=== PATIENT | female | born 1960 | race Caucasian/White ===

== ENCOUNTER 2017-04-22 05:56 | Emergency (ER) | payer OTHER ==
[~2017-04-22] VITALS: Ht 162.6 cm; Wt 122.5 kg
[~2017-04-22 05:56] MED LIST: BACL20TA PO; FLUO40CA PO; FURO40TA4 PO; HCT25T; HYDR-34 PO; HYDR-3720 PO; HYDR-3820 PO; KCL20TCR; KCL20TCR PO; NF-ESOM40C; OMEP20CA6; ONDN4T PO; OXYC-12 PO; OXYC5SOL19 PO; PANT40TA2 PO; PROP1TAB77; ROPI1TAB40 PO; ROPI2TAB4 PO; SPIR50TA27 PO; TPR100T
--- OUTSIDE RECORDS SUMMARY | 2017-04-22 06:04 | XMS REPORT | Continuity of Care Document ---
Author Author [facility] Address Unknown Phone Unavailable Allergies Active Description Code Type Severity Reaction Onset Reported/Identified Relationship to Patient Clinical Status Yes Penicillins [id number] Drug Allergy Unknown N/A 12/06/2008 Yes Penicillins Drug Allergy N/A N/A 10/09/2012 Medications There is no data. Problems Date Dx Coded Attending Type Code Diagnosis Diagnosed By 02/21/2009 Ot V43.64 02/21/2009 Ot V43.65 02/21/2009 Ot V54.81 02/21/2009 Ot V57.1 09/09/2009 Ot 285.9 09/09/2009 Ot 311 09/09/2009 Ot 333.94 09/09/2009 Ot 401.9 09/09/2009 Ot 715.96 09/09/2009 Ot 782.3 09/20/2009 Ot 278.00 09/20/2009 Ot 285.9 09/20/2009 Ot 401.9 09/20/2009 Ot 721.2 09/20/2009 Ot 782.3 09/20/2009 Ot V43.65 09/20/2009 Ot V54.81 09/20/2009 Ot V57.1 09/20/2009 Ot V57.21 09/20/2009 Ot V85.4 12/27/2009 Ot V43.65 12/27/2009 Ot V54.81 12/27/2009 Ot V57.1 12/27/2009 Ot 724.4 12/27/2009 Ot V43.65 12/27/2009 Ot V57.1 03/22/2010 Ot 311 DEPRESSIVE DISORDER NEC 03/22/2010 Ot 333.94 RESTLESS LEGS SYNDROME 03/22/2010 Ot 401.9 HYPERTENSION NOS 03/22/2010 Ot 518.0 PULMONARY COLLAPSE 03/22/2010 Ot 715.90 OSTEOARTHROS NOS-UNSPEC 03/22/2010 Ot 727.09 SYNOVITIS NEC 03/22/2010 Ot 786.59 CHEST PAIN NEC 03/22/2010 Ot 996.77 OTH COMPLICATIONS DUE TO INTERNAL JOINT 03/22/2010 Ot 997.1 SURG COMPL- HEART 03/22/2010 Ot E849.[address] NOS 03/22/2010 Ot E878.1 ABN REACT- ARTIF IMPLANT 03/22/2010 Ot V15.82 HISTORY OF TOBACCO USE 03/22/2010 Ot V43.65 KNEE JOINT REPLACEMENT STATUS 03/22/2010 Ot V85.42 BODY MASS INDEX 45.0-49.9, ADULT 12/18/2010 Ot 211.3 BENIGN NEOPLASM LG BOWEL 10/09/2012 JORDY MAGAÑA MD 278.00 OBESITY 10/09/2012 JORDY MAGAÑA MD 724.2 LUMBAGO/ LOW BACK PAIN 10/09/2012 JORDY MAGAÑA MD 782.3 EDEMA 10/09/2012 JORDY MAGAÑA MD V76.12 Mammogram Screening 10/09/2012 JORDY MAGAÑA MD 278.00 OBESITY 10/09/2012 JORDY MAGAÑA MD 724.2 LUMBAGO/ LOW BACK PAIN 10/09/2012 JORDY MAGAÑA MD 782.3 EDEMA 10/09/2012 JORDY MAGAÑA MD V76.12 Mammogram Screening 10/09/2012 JORDY MAGAÑA MD 278.00 OBESITY 10/09/2012 JORDY MAGAÑA MD 724.2 LUMBAGO/ LOW BACK PAIN 10/09/2012 JORDY MAGAÑA MD 782.3 EDEMA 10/09/2012 JORDY MAGAÑA MD V76.12 Mammogram Screening 10/09/2012 DEL REAL DO, JAM K 278.00 OBESITY 10/09/2012 DEL REAL DO JAM K 724.2 LUMBAGO/ LOW BACK PAIN 10/09/2012 DEL REAL DO, JAM K 782.3 EDEMA 10/09/2012 DEL REAL DO, JAM K V76.12 Mammogram Screening 10/09/2012 DEL REAL DO, JAM K 278.00 OBESITY 10/09/2012 DEL REAL DO, JAM K 724.2 LUMBAGO/ LOW BACK PAIN 10/09/2012 DEL REAL DO JAM K 782.3 EDEMA 10/09/2012 DEL REAL DO JAM K V76.12 Mammogram Screening 10/09/2012 SONU INTERNATIONAL CONTROLLER, SHARDA R 278.00 OBESITY 10/09/2012 SONU INTERNATIONAL CONTROLLER, SHARDA R 724.2 LUMBAGO/ LOW BACK PAIN 10/09/2012 SONU INTERNATIONAL CONTROLLER, SHARDA R 782.3 EDEMA 10/09/2012 SONU INTERNATIONAL CONTROLLER, SHARDA R V76.12 Mammogram Screening 10/09/2012 SONU INTERNATIONAL CONTROLLER, SHARDA R 278.00 OBESITY 10/09/2012 SONU INTERNATIONAL CONTROLLER, SHARDA R 724.2 LUMBAGO/ LOW BACK PAIN 10/09/2012 SONU INTERNATIONAL CONTROLLER, SHARDA R 782.3 EDEMA 10/09/2012 SONU INTERNATIONAL CONTROLLER, SHARDA R V76.12 Mammogram Screening 10/09/2012 SONU INTERNATIONAL CONTROLLER, SHARDA R 278.00 OBESITY 10/09/2012 SONU INTERNATIONAL CONTROLLER, SHARDA R 724.2 LUMBAGO/ LOW BACK PAIN 10/09/2012 SONU INTERNATIONAL CONTROLLER, SHARDA R 782.3 EDEMA 10/09/2012 SONU INTERNATIONAL CONTROLLER, SHARDA R V76.12 Mammogram Screening 10/09/2012 SONU INTERNATIONAL CONTROLLER, SHARDA R 278.00 OBESITY 10/09/2012 SONU INTERNATIONAL CONTROLLER, SHARDA R 724.2 LUMBAGO/ LOW BACK PAIN 10/09/2012 SONU INTERNATIONAL CONTROLLER, SHARDA R 782.3 EDEMA 10/09/2012 SONU INTERNATIONAL CONTROLLER, SHARDA R V76.12 Mammogram Screening 12/18/2012 JORDY MAGAÑA MD 271.3 GLUCOSE INTOLERANCE 12/18/2012 JORDY MAGAÑA MD 719.41 PAIN IN JOINT INVOLVING SHOULDER REGION 12/18/2012 JORDY MAGAÑA MD 271.3 GLUCOSE INTOLERANCE 12/18/2012 JORDY MAGAÑA MD 719.41 joint pain, localized in the shoulder 12/18/2012 ELMER DEL REAL DOA K 271.3 GLUCOSE INTOLERANCE 12/18/2012 JAM DEL REAL DO K 719.41 joint pain, localized in the shoulder 12/18/2012 ELMER DEL REAL DOA K 271.3 GLUCOSE INTOLERANCE 12/18/2012 JAM DEL REAL DO K 719.41 joint pain, localized in the shoulder 12/18/2012 SONU INTERNATIONAL CONTROLLER, SHARDA R 271.3 GLUCOSE INTOLERANCE 12/18/2012 SONU BUTLER, SHARDA R 719.41 joint pain, localized in the shoulder 12/18/2012 SONU INTERNATIONAL CONTROLLER, SHARDA R 271.3 GLUCOSE INTOLERANCE 12/18/2012 SONU INTERNATIONAL CONTROLLER, SHARDA R 719.41 joint pain, localized in the shoulder 12/18/2012 SONU INTERNATIONAL CONTROLLER, SHARDA R 271.3 GLUCOSE INTOLERANCE 12/18/2012 SONU INTERNATIONAL CONTROLLER, SHARDA R 719.41 joint pain, localized in the shoulder 12/18/2012 SONU INTERNATIONAL CONTROLLER, SHARDA R 271.3 GLUCOSE INTOLERANCE 12/18/2012 SONU INTERNATIONAL CONTROLLER, SHARDA R 719.41 joint pain, localized in the shoulder 02/26/2013 JORDY MAGAÑA MD Ot 719.41 JOINT PAIN-SHLDER 02/26/2013 JORDY MAGAÑA MD Ot V57.1 PHYSICAL THERAPY NEC 04/15/2013 JORDY MAGAÑA MD 300.00 anxiety 04/15/2013 DEL REAL DO, JAM K 300.00 anxiety 04/15/2013 DEL REAL DO, JAM K 300.00 anxiety 04/15/2013 SONU BUTLER, SHARDA R 300.00 anxiety 04/15/2013 SONU BUTLER, SHARDA R 300.00 anxiety 04/15/2013 SONU BUTLER, SHARDA R 300.00 anxiety 04/15/2013 SONU BUTLER, SHARDA R 300.00 anxiety 02/20/2014 SONU BUTLER, SHARDA R 786.2 COUGH 02/20/2014 SONU BUTLER, SHARDA R 786.2 COUGH 03/03/2014 JEFRY GREENWOOD, IBIS Arias Ot 733.92 CHONDROMALACIA 03/03/2014 JEFRY GREENWOOD, IBIS Arias Ot 840.7 (SLAP) SUPERIOR GLENOID LABRUM LESIONS 03/12/2014 SEJAL THOMSON [employer] Ot V57.1 03/12/2014 SEJAL THOMSON [employer] MA[employer]NA[employer] INTER[employer] Ot V58.49 03/12/2014 SEJAL THOMSON [employer] MAINTENAN[employer] INTERNSHIP Ot V57.1 03/12/2014 SEJAL THOMSON [employer]SC[employer] MAINTENANCE INTERNSHIP Ot V58.49 03/12/2014 SEJAL THOMSON [employer]SC[employer] MAINTENANCE INTERNSHIP Ot V57.1 03/12/2014 SJEAL THOMSON [employer]SC[employer] MAINTENANCE INTERNSHIP Ot V58.49 03/25/2014 IBIS CAPPS MD Ot 840.4 03/25/2014 IBIS CAPPS MD Ot E000.8 03/25/2014 JEFRY GREENWOOD, IBIS Arias Ot E928.9 03/25/2014 JEFRY GREENWOOD, IBIS P Ot V72.63 03/25/2014 JEFRY GREENWOOD, IBIS P Ot V74.8 04/09/2014 SEJAL THOMSON [employer] MAINTENA[employer] INTERNS[employer]IP Ot V57.1 04/09/2014 SEJAL THOMSON [employer] MA[employer]TENA[employer] Ot V58.49 04/12/2014 SEJAL THOMSON [employer] Ot V57.1 PHYSICAL THERAPY NEC 04/12/2014 SEJAL THOMSON [employer] Ot V58.49 OTHER SPECIFIED AFTERCARE FOLLOWING SURG 07/28/2014 Ot 715.36 07/28/2014 Ot 791.9 07/28/2014 Ot V72.63 07/28/2014 Ot V72.81 07/28/2014 Ot V74.8 07/28/2014 Ot 719.06 07/28/2014 Ot 996.59 07/28/2014 Ot 996.47 07/28/2014 Ot V43.65 07/28/2014 Ot V72.63 07/28/2014 Ot V74.8 07/28/2014 Ot 719.45 07/28/2014 Ot V43.64 07/28/2014 Ot 401.9 07/28/2014 Ot 703.9 07/28/2014 Ot 719.40 07/28/2014 Ot 733.90 07/28/2014 Ot 780.79 07/28/2014 Ot 959.6 07/28/2014 Ot E000.8 07/28/2014 Ot E849.0 07/28/2014 Ot E885.9 07/28/2014 Ot V43.64 07/28/2014 ARCHANA GREENWOOD, JORDY Adamson Ot 401.9 07/28/2014 ARCHANA GREENWOOD, JORDY Adamson Ot 782.3 07/28/2014 JEFRY GREENWOOD, IBIS Arias Ot 840.4 07/28/2014 JEFRY GREENWOOD, IBIS Arias Ot E000.8 07/28/2014 JEFRY GREENWOOD, IBIS Arias Ot E928.9 07/28/2014 JEFRY GREENWOOD, IBIS Arias Ot V72.63 07/28/2014 JEFRY GREENWOOD, IBIS Arias Ot V74.8 07/28/2014 Ot 715.36 07/28/2014 Ot 791.9 07/28/2014 Ot V72.63 07/28/2014 Ot V72.81 07/28/2014 Ot V74.8 07/28/2014 Ot 719.06 07/28/2014 Ot 996.59 07/28/2014 Ot 996.47 07/28/2014 Ot V43.65 07/28/2014 Ot V72.63 07/28/2014 Ot V74.8 07/28/2014 Ot 719.45 07/28/2014 Ot V43.64 07/28/2014 Ot 401.9 07/28/2014 Ot 703.9 07/28/2014 Ot 719.40 07/28/2014 Ot 733.90 07/28/2014 Ot 780.79 07/28/2014 Ot 959.6 07/28/2014 Ot E000.8 07/28/2014 Ot E849.0 07/28/2014 Ot E885.9 07/28/2014 Ot V43.64 07/28/2014 ARCHANA GREENWOOD, JORDY Adamson Ot 401.9 07/28/2014 ARCHANA GREENWOOD, JORDY Adamson Ot 782.3 07/28/2014 JEFRY GREENWOOD, IBIS Arias Ot 840.4 07/28/2014 JEFRY GREENWOOD, IBIS Arias Ot E000.8 07/28/2014 JEFRY GREENWOOD, IBIS Arias Ot E928.9 07/28/2014 JEFRY GREENWOOD, IBIS Arias Ot V72.63 07/28/2014 JEFRY GREENWOOD, IBIS Arias Ot V74.8 09/09/2014 Ot 715.36 09/09/2014 Ot 791.9 09/09/2014 Ot V72.63 09/09/2014 Ot V72.81 09/09/2014 Ot V74.8 09/09/2014 Ot 719.06 09/09/2014 Ot 996.59 09/09/2014 Ot 996.47 09/09/2014 Ot V43.65 09/09/2014 Ot V72.63 09/09/2014 Ot V74.8 09/09/2014 Ot 719.45 09/09/2014 Ot V43.64 09/09/2014 Ot 401.9 09/09/2014 Ot 703.9 09/09/2014 Ot 719.40 09/09/2014 Ot 733.90 09/09/2014 Ot 780.79 09/09/2014 Ot 959.6 09/09/2014 Ot E000.8 09/09/2014 Ot E849.0 09/09/2014 Ot E885.9 09/09/2014 Ot V43.64 09/09/2014 ARCHANA GREENWOOD, JORDY Adamson Ot 401.9 09/09/2014 ARCHANA GREENWOOD, JORDY Adamson Ot 782.3 09/09/2014 JEFRY GREENWOOD, IBIS P Ot 840.4 09/09/2014 JEFRY GREENWOOD, IBIS P Ot E000.8 09/09/2014 JEFRY GREENWOOD, IBIS P Ot E928.9 09/09/2014 JEFRY GREENWOOD, IBIS P Ot V72.63 09/09/2014 JEFRY GREENWOOD, IBIS P Ot V74.8 09/09/2014 IRENE GREENWOOD, BALBIR Ot 272.0 09/09/2014 IRENE GREENWOOD, BALBIR Ot 530.81 09/09/2014 ARCHANA GREENWOOD, JORDY Adamson Ot 401.9 09/09/2014 ARCHANA GREENWOOD, JORDY Adamson Ot 782.3 09/09/2014 Ot 715.36 09/09/2014 Ot 791.9 09/09/2014 Ot V72.63 09/09/2014 Ot V72.81 09/09/2014 Ot V74.8 09/09/2014 Ot 719.06 09/09/2014 Ot 996.59 09/09/2014 Ot 996.47 09/09/2014 Ot V43.65 09/09/2014 Ot V72.63 09/09/2014 Ot V74.8 09/09/2014 Ot 719.45 09/09/2014 Ot V43.64 09/09/2014 Ot 401.9 09/09/2014 Ot 703.9 09/09/2014 Ot 719.40 09/09/2014 Ot 733.90 09/09/2014 Ot 780.79 09/09/2014 Ot 959.6 09/09/2014 Ot E000.8 09/09/2014 Ot E849.0 09/09/2014 Ot E885.9 09/09/2014 Ot V43.64 09/09/2014 ARCHANA GREENWOOD, JORDY Adamson Ot 401.9 09/09/2014 ARCHANA GREENWOOD, JORDY Adamson Ot 782.3 09/09/2014 JEFRY GREENWOOD, IBIS P Ot 840.4 09/09/2014 JEFRY GREENWOOD, IBIS P Ot E000.8 09/09/2014 JEFRY GREENWOOD, IBIS P Ot E928.9 09/09/2014 JEFRY GREENWOOD, IBIS P Ot V72.63 09/09/2014 JEFRY GREENWOOD, IBIS P Ot V74.8 09/09/2014 IRENE GREENWOOD, BALBIR Ot 272.0 09/09/2014 IRENE GREENWOOD, BALBIR Ot 530.81 09/15/2014 ARCHANA GREENWOOD, JORDY Adamson Ot 401.9 09/15/2014 ARCHANA GREENWOOD, JORDY M Ot 782.3 09/20/2014 IRENE GREENWOOD, BALBIR Ot 272.0 09/20/2014 IRENE GREENWOOD, BALBIR Ot 530.81 10/07/2014 IRENE GREENWOOD, BALBIR Ot 272.0 10/07/2014 IRENE GREENWOOD, BALBIR Ot 530.81 10/18/2014 IRENE GREENWOOD, BALBIR Ot 272.0 10/18/2014 IRENE GREENWOOD, BALBIR Ot 530.81 12/18/2014 BALBIR BONILLA MD Ot E66.01 MORBID (SEVERE) OBESITY DUE TO EXCESS CA 12/18/2014 BALBIR BONILLA MD Ot G25.81 RESTLESS LEGS SYNDROME 12/18/2014 BALBIR BONILLA MD Ot G44.40 DRUG-INDUCED HEADACHE, NEC, NOT INTRACTA 12/18/2014 BALBIR BONILLA MD Ot I10 ESSENTIAL (PRIMARY) HYPERTENSION 12/18/2014 BALBIR BONILLA MD Ot K21.9 GASTRO-ESOPHAGEAL REFLUX DISEASE WITHOUT 12/18/2014 BALBIR BONILLA MD Ot M47.9 SPONDYLOSIS, UNSPECIFIED 12/18/2014 BALBIR BONILLA MD Ot R60.9 EDEMA, UNSPECIFIED 12/18/2014 BALBIR BONILLA MD Ot T40.4X5A ADVERSE EFFECT OF OTHER SYNTHETIC NARCOT 12/18/2014 BALBIR BONILLA MD Ot Z68.43 BODY MASS INDEX (BMI) 50-59.9 , ADULT 12/18/2014 BALBIR BONILLA MD Ot Z87.891 PERSONAL HISTORY OF NICOTINE DEPENDENCE 12/24/2014 BALBIR BONILLA MD Ot E66.01 12/24/2014 IRENE GERENWOOD, BALBIR Ot Z01.812 12/24/2014 IRENE GREENWOOD, BALBIR Ot Z11.2 12/24/2014 IRENE GREENWOOD, BALBIR Ot Z68.43 05/25/2015 Ot 719.06 05/25/2015 Ot 996.59 05/25/2015 Ot 996.47 05/25/2015 Ot V43.65 05/25/2015 Ot V72.63 05/25/2015 Ot V74.8 05/25/2015 Ot 719.45 05/25/2015 Ot V43.64 05/25/2015 Ot 401.9 05/25/2015 Ot 703.9 05/25/2015 Ot 719.40 05/25/2015 Ot 733.90 05/25/2015 Ot 780.79 05/25/2015 Ot 959.6 05/25/2015 Ot E000.8 05/25/2015 Ot E849.0 05/25/2015 Ot E885.9 05/25/2015 Ot V43.64 05/25/2015 ARCHANA GREENWOOD, JORDY Adamson Ot 401.9 05/25/2015 ARCHANA GREENWOOD, JORDY Adamson Ot 782.3 05/25/2015 JEFRY GREENWOOD, IBIS Arias Ot 840.4 05/25/2015 JEFRY GREENWOOD, IBIS Arias Ot E000.8 05/25/2015 JEFRY GREENWOOD, IBIS Arias Ot E928.9 05/25/2015 JEFRY GREENWOOD, IBIS Arias Ot V72.63 05/25/2015 JEFRY GREENWOOD, IBIS P Ot V74.8 05/25/2015 IRENE GREENWOOD, BALBIR Ot 272.0 05/25/2015 IRENE GREENWOOD, BALBIR Ot 530.81 05/25/2015 IRENE GREENWOOD, BALBIR Ot E66.01 05/25/2015 IRENE GREENWOOD, BALBIR Ot Z01.812 05/25/2015 IRENE GREENWOOD, BALBIR Ot Z11.2 05/25/2015 IRENE GREENWOOD, BALBIR Ot Z68.43 06/28/2015 Ot 719.06 JOINT EFFUSION-L/LEG 06/28/2015 Ot 996.59 MECH. COMPLIC, OTH. IMPLANT INTERNAL D 06/28/2015 Ot 996.47 OTHER [facility] COMPLICATION OF PROSTHETIC SUSAN 06/28/2015 Ot V43.65 KNEE JOINT REPLACEMENT STATUS 06/28/2015 Ot V72.63 PRE- PROCEDURAL LABORATORY EXAMINATION 06/28/2015 Ot V74.8 SCREEN- BACTERIAL DIS NEC 06/28/2015 Ot 719.45 JOINT PAIN- PELVIS 06/28/2015 Ot V43.64 HIP JOINT REPLACEMENT STATUS 06/28/2015 Ot 401.9 HYPERTENSION NOS 06/28/2015 Ot 703.9 DISEASE OF NAIL NOS 06/28/2015 Ot 719.40 JOINT PAIN- UNSPEC 06/28/2015 Ot 733.90 BONE CARTILAGE DIS NOS 06/28/2015 Ot 780.79 OTH MALAISE FATIGUE 06/28/2015 Ot 959.6 HIP THIGH INJURY NOS 06/28/2015 Ot E000.8 OTHER EXTERNAL CAUSE STATUS 06/28/2015 Ot E849.0 ACCIDENT IN HOME 06/28/2015 Ot E885.9 FALL FROM SLIPPING, TRIPPING, OR STUMBLI 06/28/2015 Ot V43.64 HIP JOINT REPLACEMENT STATUS 06/28/2015 JORDY MAGAÑA MD Ot 401.9 HYPERTENSION NOS 06/28/2015 JORDY MAGAÑA MD Ot 782.3 EDEMA 06/28/2015 IBIS CAPPS MD Ot 840.4 SPRAIN ROTATOR CUFF 06/28/2015 IBIS CAPPS MD Ot E000.8 OTHER EXTERNAL CAUSE STATUS 06/28/2015 IBIS CAPPS MD Ot E928.9 ACCIDENT NOS 06/28/2015 IBIS CAPPS MD Ot V72.63 PRE-PROCEDURAL LABORATORY EXAMINATION 06/28/2015 IBIS CAPPS MD Ot V74.8 SCREEN-BACTERIAL DIS NEC 06/28/2015 BALBIR BONILLA MD Ot 272.0 PURE HYPERCHOLESTEROLEM 06/28/2015 BALBIR BONILLA MD Ot 530.81 ESOPHAGEAL REFLUX 06/28/2015 BALBIR BONILLA MD Ot E66.01 MORBID (SEVERE) OBESITY DUE TO EXCESS CA 06/28/2015 BALBIR BONILLA MD Ot Z01.812 ENCOUNTER FOR PREPROCEDURAL LABORATORY E 06/28/2015 BALBIR BONILLA MD, Ot Z11.2 ENCOUNTER FOR SCREENING FOR OTHER BACTER 06/28/2015 BALBIR BONILLA MD Ot Z68.43 BODY MASS INDEX (BMI) 50-59.9 , ADULT 06/28/2015 JESSICA DUKES MD Ot Z12.31 ENCNTR SCREEN MAMMOGRAM FOR MALIGNANT NE 06/28/2015 JESSICA DUKES MD Ot L65.9 NONSCARRING HAIR LOSS, UNSPECIFIED 06/28/2015 JESSICA DUKES MD Ot R53.81 OTHER MALAISE 06/28/2015 JESSICA DUKES MD Ot R53.83 OTHER FATIGUE 06/30/2015 JESSICA DUKES MD Ot N63 UNSPECIFIED LUMP IN BREAST 07/02/2015 Ot 719.06 JOINT EFFUSION-L/LEG 07/02/2015 Ot 996.59 [facility]. COMPLIC, OT. IMPLANT INTERNAL D 07/02/2015 Ot 996.47 OTHER [facility] COMPLICATION OF PROSTHETIC SUSAN 07/02/2015 Ot V43.65 KNEE JOINT REPLACEMENT STATUS 07/02/2015 Ot V72.63 PRE- PROCEDURAL LABORATORY EXAMINATION 07/02/2015 Ot V74.8 SCREEN- BACTERIAL DIS NEC 07/02/2015 Ot 719.45 JOINT PAIN- PELVIS 07/02/2015 Ot V43.64 HIP JOINT REPLACEMENT STATUS 07/02/2015 Ot 401.9 HYPERTENSION NOS 07/02/2015 Ot 703.9 DISEASE OF NAIL NOS 07/02/2015 Ot 719.40 JOINT PAIN- UNSPEC 07/02/2015 Ot 733.90 BONE CARTILAGE DIS NOS 07/02/2015 Ot 780.79 OTH MALAISE FATIGUE 07/02/2015 Ot 959.6 HIP THIGH INJURY NOS 07/02/2015 Ot E000.8 OTHER EXTERNAL CAUSE STATUS 07/02/2015 Ot E849.0 ACCIDENT IN HOME 07/02/2015 Ot E885.9 FALL FROM SLIPPING, TRIPPING, OR STUMBLI 07/02/2015 Ot V43.64 HIP JOINT REPLACEMENT STATUS 07/02/2015 JORDY MAGAÑA MD Ot 401.9 HYPERTENSION NOS 07/02/2015 JORDY MAGAÑA MD Ot 782.3 EDEMA 07/02/2015 IBIS CAPPS MD Ot 840.4 SPRAIN ROTATOR CUFF 07/02/2015 IBIS CAPPS MD Ot E000.8 OTHER EXTERNAL CAUSE STATUS 07/02/2015 IBSI CAPPS MD Ot E928.9 ACCIDENT NOS 07/02/2015 JEFRY GREENWOOD, IBIS Arias Ot V72.63 PRE-PROCEDURAL LABORATORY EXAMINATION 07/02/2015 IBIS CAPPS MD Ot V74.8 SCREEN-BACTERIAL DIS NEC 07/02/2015 BALBIR BONILLA MD Ot 272.0 PURE HYPERCHOLESTEROLEM 07/02/2015 BALBIR BONILLA MD Ot 530.81 ESOPHAGEAL REFLUX 07/02/2015 BALBIR BONILLA MD Ot E66.01 MORBID (SEVERE) OBESITY DUE TO EXCESS CA 07/02/2015 BALBIR BONILLA MD, Ot Z01.812 ENCOUNTER FOR PREPROCEDURAL LABORATORY E 07/02/2015 BALBIR BONILLA MD, Ot Z11.2 ENCOUNTER FOR SCREENING FOR OTHER BACTER 07/02/2015 BALBIR BONILLA MD, Ot Z68.43 BODY MASS INDEX (BMI) 50-59.9 , ADULT 07/02/2015 JESSICA DUKES MD Ot Z12.31 ENCNTR SCREEN MAMMOGRAM FOR MALIGNANT NE 07/02/2015 JESSICA DUKES MD Ot L65.9 NONSCARRING HAIR LOSS, UNSPECIFIED 07/02/2015 JESSICA DUKES MD Ot R53.81 OTHER MALAISE 07/02/2015 JESSICA DUKES MD Ot R53.83 OTHER FATIGUE 07/02/2015 JESSICA DUKES MD Ot N63 UNSPECIFIED LUMP IN BREAST 07/08/2015 JESSICA DUKES MD Ot L65.9 NONSCARRING HAIR LOSS, UNSPECIFIED 07/08/2015 JESSICA DUKES MD Ot R53.81 OTHER MALAISE 07/08/2015 JESSICA DUKES MD Ot R53.83 OTHER FATIGUE 07/29/2015 JESSICA DUKES MD Ot N63 UNSPECIFIED LUMP IN BREAST 12/06/2015 Ot 719.45 JOINT PAIN- PELVIS 12/06/2015 Ot V43.64 HIP JOINT REPLACEMENT STATUS 12/06/2015 Ot 401.9 HYPERTENSION NOS 12/06/2015 Ot 703.9 DISEASE OF NAIL NOS 12/06/2015 Ot 719.40 JOINT PAIN- UNSPEC 12/06/2015 Ot 733.90 BONE CARTILAGE DIS NOS 12/06/2015 Ot 780.79 OTH MALAISE FATIGUE 12/06/2015 Ot 959.6 HIP THIGH INJURY NOS 12/06/2015 Ot E000.8 OTHER EXTERNAL CAUSE STATUS 12/06/2015 Ot E849.0 ACCIDENT IN HOME 12/06/2015 Ot E885.9 FALL FROM SLIPPING, TRIPPING, OR STUMBLI 12/06/2015 Ot V43.64 HIP JOINT REPLACEMENT STATUS 12/06/2015 JORDY MAGAÑA MD Ot 401.9 HYPERTENSION NOS 12/06/2015 ARCHANA GREENWOOD, JORDY Adamson Ot 782.3 EDEMA 12/06/2015 IBIS CAPPS MD Ot 840.4 SPRAIN ROTATOR CUFF 12/06/2015 IBIS CAPPS MD Ot E000.8 OTHER EXTERNAL CAUSE STATUS 12/06/2015 IBIS CAPPS MD Ot E928.9 ACCIDENT NOS 12/06/2015 IBIS CAPPS MD Ot V72.63 PRE-PROCEDURAL LABORATORY EXAMINATION 12/06/2015 IBIS CAPPS MD Ot V74.8 SCREEN-BACTERIAL DIS NEC 12/06/2015 BALBIR BONILLA MD Ot 272.0 PURE HYPERCHOLESTEROLEM 12/06/2015 BALBIR BONILLA MD Ot 530.81 ESOPHAGEAL REFLUX 12/06/2015 BALBIR BONILLA MD Ot E66.01 MORBID (SEVERE) OBESITY DUE TO EXCESS CA 12/06/2015 BALBIR BONILLA MD Ot Z01.812 ENCOUNTER FOR PREPROCEDURAL LABORATORY E 12/06/2015 BALBIR BONILLA MD Ot Z11.2 ENCOUNTER FOR SCREENING FOR OTHER BACTER 12/06/2015 BALBIR BONILLA MD Ot Z68.43 BODY MASS INDEX (BMI) 50-59.9 , ADULT 12/06/2015 JESSICA DUKES MD Ot Z12.31 ENCNTR SCREEN MAMMOGRAM FOR MALIGNANT NE 12/06/2015 JESSICA DUKES MD Ot L65.9 NONSCARRING HAIR LOSS, UNSPECIFIED 12/06/2015 JESSICA DUKES MD Ot R53.81 OTHER MALAISE 12/06/2015 JESSICA DUKES MD Ot R53.83 OTHER FATIGUE 12/06/2015 JESSICA DUKES MD Ot N63 UNSPECIFIED LUMP IN BREAST 12/07/2015 Ot 719.45 JOINT PAIN- PELVIS 12/07/2015 Ot V43.64 HIP JOINT REPLACEMENT STATUS 12/07/2015 Ot 401.9 HYPERTENSION NOS 12/07/2015 Ot 703.9 DISEASE OF NAIL NOS 12/07/2015 Ot 719.40 JOINT PAIN- UNSPEC 12/07/2015 Ot 733.90 BONE CARTILAGE DIS NOS 12/07/2015 Ot 780.79 OTH MALAISE FATIGUE 12/07/2015 Ot 959.6 HIP THIGH INJURY NOS 12/07/2015 Ot E000.8 OTHER EXTERNAL CAUSE STATUS 12/07/2015 Ot E849.0 ACCIDENT IN HOME 12/07/2015 Ot E885.9 FALL FROM SLIPPING, TRIPPING, OR STUMBLI 12/07/2015 Ot V43.64 HIP JOINT REPLACEMENT STATUS 12/07/2015 JORDY MAGAÑA MD Ot 401.9 HYPERTENSION NOS 12/07/2015 JORDY MAGAÑA MD Ot 782.3 EDEMA 12/07/2015 IBIS CAPPS MD Ot 840.4 SPRAIN ROTATOR CUFF 12/07/2015 IBIS CAPPS MD Ot E000.8 OTHER EXTERNAL CAUSE STATUS 12/07/2015 IBIS CAPPS MD Ot E928.9 ACCIDENT NOS 12/07/2015 IBIS CAPPS MD Ot V72.63 PRE-PROCEDURAL LABORATORY EXAMINATION 12/07/2015 IBIS CAPPS MD Ot V74.8 SCREEN-BACTERIAL DIS NEC 12/07/2015 BALBIR BONILLA MD Ot 272.0 PURE HYPERCHOLESTEROLEM 12/07/2015 BALBIR BONILLA MD Ot 530.81 ESOPHAGEAL REFLUX 12/07/2015 BALBIR BONILLA MD Ot E66.01 MORBID (SEVERE) OBESITY DUE TO EXCESS CA 12/07/2015 BALBIR BONILLA MD Ot Z01.812 ENCOUNTER FOR PREPROCEDURAL LABORATORY E 12/07/2015 BALBIR BONILLA MD Ot Z11.2 ENCOUNTER FOR SCREENING FOR OTHER BACTER 12/07/2015 BALBIR BONILLA MD Ot Z68.43 BODY MASS INDEX (BMI) 50-59.9 , ADULT 12/07/2015 JESSICA DUKES MD Ot Z12.31 ENCNTR SCREEN MAMMOGRAM FOR MALIGNANT NE 12/07/2015 JESSICA DUKES MD Ot L65.9 NONSCARRING HAIR LOSS, UNSPECIFIED 12/07/2015 JESSICA DUKES MD Ot R53.81 OTHER MALAISE 12/07/2015 ERNST GREENWOOD, JESSICA Stein Ot R53.83 OTHER FATIGUE 12/07/2015 ERNST GREENWOOD, JESSICA Stein Ot N63 UNSPECIFIED LUMP IN BREAST 01/12/2016 Ot 719.45 JOINT PAIN- PELVIS 01/12/2016 Ot V43.64 HIP JOINT REPLACEMENT STATUS 01/12/2016 Ot 401.9 HYPERTENSION NOS 01/12/2016 Ot 703.9 DISEASE OF NAIL NOS 01/12/2016 Ot 719.40 JOINT PAIN- UNSPEC 01/12/2016 Ot 733.90 BONE CARTILAGE DIS NOS 01/12/2016 Ot 780.79 OTH MALAISE FATIGUE 01/12/2016 Ot 959.6 HIP THIGH INJURY NOS 01/12/2016 Ot E000.8 OTHER EXTERNAL CAUSE STATUS 01/12/2016 Ot E849.0 ACCIDENT IN HOME 01/12/2016 Ot E885.9 FALL FROM SLIPPING, TRIPPING, OR STUMBLI 01/12/2016 Ot V43.64 HIP JOINT REPLACEMENT STATUS 01/12/2016 JORDY MAGAÑA MD Ot 401.9 HYPERTENSION NOS 01/12/2016 JORDY MAGAÑA MD Ot 782.3 EDEMA 01/12/2016 IBIS CAPPS MD Ot 840.4 SPRAIN ROTATOR CUFF 01/12/2016 IBIS CAPPS MD Ot E000.8 OTHER EXTERNAL CAUSE STATUS 01/12/2016 IBIS CAPPS MD Ot E928.9 ACCIDENT NOS 01/12/2016 IBIS CAPPS MD Ot V72.63 PRE-PROCEDURAL LABORATORY EXAMINATION 01/12/2016 IBIS CAPPS MD Ot V74.8 SCREEN-BACTERIAL DIS NEC 01/12/2016 BALBIR BONILLA MD Ot 272.0 PURE HYPERCHOLESTEROLEM 01/12/2016 BALBIR BONILLA MD Ot 530.81 ESOPHAGEAL REFLUX 01/12/2016 BALBIR BOINLLA MD Ot E66.01 MORBID (SEVERE) OBESITY DUE TO EXCESS CA 01/12/2016 BALBIR BONILLA MD Ot Z01.812 ENCOUNTER FOR PREPROCEDURAL LABORATORY E 01/12/2016 BALBIR BONILLA MD Ot Z11.2 ENCOUNTER FOR SCREENING FOR OTHER BACTER 01/12/2016 BALBIR BONILLA MD Ot Z68.43 BODY MASS INDEX (BMI) 50-59.9 , ADULT 01/12/2016 JESSICA DUKES MD Ot Z12.31 ENCNTR SCREEN MAMMOGRAM FOR MALIGNANT NE 01/12/2016 JESSICA DUKES MD Ot L65.9 NONSCARRING HAIR LOSS, UNSPECIFIED 01/12/2016 JESSICA DUKES MD Ot R53.81 OTHER MALAISE 01/12/2016 JESSICA DUKES MD Ot R53.83 OTHER FATIGUE 01/12/2016 JESSICA DUKES MD Ot N63 UNSPECIFIED LUMP IN BREAST 01/12/2016 Ot 719.45 JOINT PAIN- PELVIS 01/12/2016 Ot V43.64 HIP JOINT REPLACEMENT STATUS 01/12/2016 Ot 401.9 HYPERTENSION NOS 01/12/2016 Ot 703.9 DISEASE OF NAIL NOS 01/12/2016 Ot 719.40 JOINT PAIN- UNSPEC 01/12/2016 Ot 733.90 BONE CARTILAGE DIS NOS 01/12/2016 Ot 780.79 OTH MALAISE FATIGUE 01/12/2016 Ot 959.6 HIP THIGH INJURY NOS 01/12/2016 Ot E000.8 OTHER EXTERNAL CAUSE STATUS 01/12/2016 Ot E849.0 ACCIDENT IN HOME 01/12/2016 Ot E885.9 FALL FROM SLIPPING, TRIPPING, OR STUMBLI 01/12/2016 Ot V43.64 HIP JOINT REPLACEMENT STATUS 01/12/2016 JORDY MAGAÑA MD Ot 401.9 HYPERTENSION NOS 01/12/2016 JORDY MAGAÑA MD Ot 782.3 EDEMA 01/12/2016 IBIS CAPPS MD Ot 840.4 SPRAIN ROTATOR CUFF 01/12/2016 IBIS CAPPS MD Ot E000.8 OTHER EXTERNAL CAUSE STATUS 01/12/2016 IBIS CAPPS MD Ot E928.9 ACCIDENT NOS 01/12/2016 IBIS CAPPS MD Ot V72.63 PRE-PROCEDURAL LABORATORY EXAMINATION 01/12/2016 IBIS CAPPS MD Ot V74.8 SCREEN-BACTERIAL DIS NEC 01/12/2016 BALBIR BONILLA MD Ot 272.0 PURE HYPERCHOLESTEROLEM 01/12/2016 BALBIR BONILLA MD Ot 530.81 ESOPHAGEAL REFLUX 01/12/2016 BALBIR BONILLA MD Ot E66.01 MORBID (SEVERE) OBESITY DUE TO EXCESS CA 01/12/2016 BALBIR BONILLA MD, Ot Z01.812 ENCOUNTER FOR PREPROCEDURAL LABORATORY E 01/12/2016 BALBIR BONILLA MD, Ot Z11.2 ENCOUNTER FOR SCREENING FOR OTHER BACTER 01/12/2016 BLABIR BONILLA MD, Ot Z68.43 BODY MASS INDEX (BMI) 50-59.9 , ADULT 01/12/2016 JESSICA DUKES MD, Ot Z12.31 ENCNTR SCREEN MAMMOGRAM FOR MALIGNANT NE 01/12/2016 JESSICA DUKES MD Ot L65.9 NONSCARRING HAIR LOSS, UNSPECIFIED 01/12/2016 JESSICA DUKES MD Ot R53.81 OTHER MALAISE 01/12/2016 JESSICA DUKES MD Ot R53.83 OTHER FATIGUE 01/12/2016 JESSICA DUKES MD, Ot N63 UNSPECIFIED LUMP IN BREAST 07/27/2016 Ot 401.9 HYPERTENSION NOS 07/27/2016 Ot 703.9 DISEASE OF NAIL NOS 07/27/2016 Ot 719.40 JOINT PAIN- UNSPEC 07/27/2016 Ot 733.90 BONE CARTILAGE DIS NOS 07/27/2016 Ot 780.79 OTH MALAISE FATIGUE 07/27/2016 Ot 959.6 HIP THIGH INJURY NOS 07/27/2016 Ot E000.8 OTHER EXTERNAL CAUSE STATUS 07/27/2016 Ot E849.0 ACCIDENT IN HOME 07/27/2016 Ot E885.9 FALL FROM SLIPPING, TRIPPING, OR STUMBLI 07/27/2016 Ot V43.64 HIP JOINT REPLACEMENT STATUS 07/27/2016 JORDY MAGAÑA MD Ot 401.9 HYPERTENSION NOS 07/27/2016 JORDY MAGAÑA MD Ot 782.3 EDEMA 07/27/2016 IBIS CAPPS MD Ot 840.4 SPRAIN ROTATOR CUFF 07/27/2016 IBIS CAPPS MD Ot E000.8 OTHER EXTERNAL CAUSE STATUS 07/27/2016 IBIS CAPPS MD Ot E928.9 ACCIDENT NOS 07/27/2016 IBIS CAPPS MD Ot V72.63 PRE-PROCEDURAL LABORATORY EXAMINATION 07/27/2016 IBIS CAPPS MD Ot V74.8 SCREEN-BACTERIAL DIS NEC 07/27/2016 BALBIR BONILLA MD Ot 272.0 PURE HYPERCHOLESTEROLEM 07/27/2016 BALBIR BONILLA MD Ot 530.81 ESOPHAGEAL REFLUX 07/27/2016 BALBIR BONILLA MD, Ot E66.01 MORBID (SEVERE) OBESITY DUE TO EXCESS CA 07/27/2016 BALBIR BONILLA MD, Ot Z01.812 ENCOUNTER FOR PREPROCEDURAL LABORATORY E 07/27/2016 BALBIR BONILLA MD, Ot Z11.2 ENCOUNTER FOR SCREENING FOR OTHER BACTER 07/27/2016 BALBIR BONILLA MD, Ot Z68.43 BODY MASS INDEX (BMI) 50-59.9 , ADULT 07/27/2016 JESSICA DUKES MD, Ot Z12.31 ENCNTR SCREEN MAMMOGRAM FOR MALIGNANT NE 07/27/2016 JESSICA DUKES MD, Ot L65.9 NONSCARRING HAIR LOSS, UNSPECIFIED 07/27/2016 JESSICA DUKES MD, Ot R53.81 OTHER MALAISE 07/27/2016 JESSICA DUKES MD, Ot R53.83 OTHER FATIGUE 07/27/2016 JESSICA DUKES MD, Ot N63 UNSPECIFIED LUMP IN BREAST Procedures Code Description Performed By Performed On 80.96 03/20/2010 37.22 03/21/2010 88.53 03/21/2010 88.56 03/21/2010 92017 MAMMOGRAM, SCREENING 10/09/2012 Physical Physical Therapy, [facility] 12/18/2012 01633 MRI EXTREMITY JOINT, UPPER LEFT, W/O CONTRAST 04/15/2013 [id number] [facility] 06/30/2013 52737 XRAY SHOULDER LEFT COMP 2 VIEWS 07/08/2013 73411 JOINT INJECTION- INTERMEDIATE JOINT 07/09/2013 12171 [facility] 02/12/2014 41511 O[facility] 02/20/2014 [id number] EXCISION OF STOMACH, PERCUTANEOUS ENDOSC 12/16/2014 Results There is no data. Encounters ACCT No. Visit Date/Time Discharge Status Pt. Type Provider Facility Loc./Unit Complaint [id number] 05/12/2014 15:52:00 05/12/2014 23:59:59 CLS Outpatient SHARDA ASCENCIO APRN [id number] 02/20/2014 12:28:00 02/20/2014 23:59:59 CLS Outpatient SHARDA ASCENCIO APRN [id number] 02/12/2014 08:00:00 02/12/2014 23:59:59 CLS Outpatient [facility] [employer] Stanton [id number] 11/03/2013 13:31:00 11/03/2013 23:59:59 CLS Outpatient [employer] SHARDA Coronado [id number] 07/23/2013 15:58:00 07/23/2013 23:59:59 CLS Outpatient JAM DEL REAL DO Joselyn [id number] 07/09/2013 16:12:00 07/09/2013 23:59:59 CLS Outpatient JAM DEL REAL DO Joselyn [id number] 04/15/2013 15:37:00 04/15/2013 23:59:59 CLS Outpatient JORDY MAGAÑA MD [id number] 12/18/2012 16:46:00 12/18/2012 23:59:59 CLS Outpatient JRODY MAGAÑA MD [id number] 10/09/2012 15:53:00 10/09/2012 23:59:59 CLS Outpatient JORDY MAGAÑA MD [id number] 06/28/2015 08:12:00 06/28/2015 23:59:59 CLS Outpatient JESSICA DUKES MD [facility] RAD BILAT BREAST NODULE [id number] 05/25/2015 15:08:00 05/25/2015 23:59:59 CLS Outpatient JESSICA DUKES MD [facility] RAD SCREENING [id number] 05/25/2015 06:38:00 05/25/2015 23:59:59 CLS Outpatient JESSICA DUKES MD [facility] LAB FATIGUE,MALAISE,ALOPECIA [id number] 12/16/2014 07:25:00 12/18/2014 12:50:00 DIS Inpatient BALBIR BONILLA MD [facility] 4TH MORBID OBESITY [id number] 12/08/2014 09:56:00 12/08/2014 23:59:59 CLS Outpatient BALBIR BONILLA MD [facility] PREOP MORBID OBESITY [id number] 09/22/2014 14:41:00 09/22/2014 23:59:59 CLS Outpatient CASH KIRBY [facility] QUICK [id number] 09/01/2014 08:41:00 09/01/2014 23:59:59 CLS Outpatient BALBIR BONILLA MD [facility] RAD REFLUX,T CHOL [id number] 03/24/2014 11:23:00 04/12/2014 11:08:00 DIS Outpatient SEJAL THOMSON [facility] REHAB L SHOULDER SCOPE BICEP TENOTOMY CHONDROPLASTY [id number] 03/03/2014 08:36:00 03/03/2014 14:45:00 DIS Outpatient IBIS CAPPS MD [facility] SDC LEFT SHOULDER TORN ROTATOR CUFF [id number] 03/01/2014 14:33:00 03/01/2014 23:59:59 CLS Outpatient IBIS CAPPS MD [facility] PREOP LEFT SHOULDER TORN ROTATOR CUFF [id number] 02/20/2013 15:56:00 02/26/2013 16:52:00 DIS Outpatient JORDY MAGAÑA MD [facility] REHAB L SHOULDER PAIN [id number] 10/13/2012 06:52:00 10/13/2012 23:59:59 CLS Outpatient JORDY MAGAÑA MD [facility] LAB EDEMA,HYPERTENSION [id number] 08/06/2012 11:19:00 08/06/2012 23:59:59 CLS Outpatient [id number] 07/28/2014 16:43:00 Document Registration [id number] 07/28/2014 16:42:00 Document Registration [id number] 07/28/2014 16:42:00 Document Registration [id number] 07/28/2014 16:42:00 Document Registration [id number] 07/28/2014 16:42:00 Document Registration [id number] 12/18/2011 16:11:00 Document Registration [id number] 05/25/2011 06:47:00 Document Registration [id number] 07/26/2010 09:44:00 Document Registration [id number] 03/20/2010 09:40:00 Document Registration [id number] 03/17/2010 10:22:00 Document Registration [id number] 03/03/2010 11:02:00 Document Registration [id number] 11/25/2009 09:47:00 Document Registration [id number] 08/30/2009 11:55:00 Document Registration [id number] 02/21/2009 15:56:00 Document Registration
--- NOTE | 2017-04-22 06:13 | ED Respiratory ---
General Stated Complaint: FEVER 102 SOB Source: patient, family (daughter) Exam Limitations: no limitations History of Present Illness Date Seen by Provider: Apr 22, 2017 Time Seen by Provider: 06:08 Initial Comments Patient presents to ER by private conveyance with her daughter and a chief complaint of shortness of breath and fever for the past 3 days progressively gotten worse. She says she thinks she has the flu because he had body aches and she's also had a grandchild was diagnosed with flu just a few days prior to her starting her symptoms. She has been using [id number]-[id number] Tylenol, Motrin, Robitussin, Flonase, humidifiers, Vicks etc. She says she's not been able to sleep very well and is endorsing difficulty breathing worse when she lays back. She does not have a history of heart failure however she does use Lasix and potassium for gravity dependent edema. She does not wear stockings. She has not taken any medicines. She does not have a history of COPD, asthma. She has a cough but it is dry and nonproductive. She says she's been keeping up with her drinking and not having any vomiting or diarrhea however she does have nausea. The patient quit smoking about 10 years ago. Patient has a Benadryl to try and get some sleep and would like something else to help her. Allergies and Home Medications Allergies Coded Allergies: Penicillins (Verified Allergy, Unknown, 04/22/17) Home Medications Albuterol Sulfate 1 Puff Puff, 2 PUFF IH Q4H PRN for WHEEZING 1 PUFF = 90 MCG Prescribed by: LINDEN MAX on 04/22/17 0709 Furosemide 40 Mg Tablet, 80 MG PO DAILY, (Reported) TAKE 2 (40mg) TABLETS Ondansetron 4 Mg Tab.rapdis, 4 MG PO Q6H PRN for NAUSEA/VOMITING Prescribed by: LINDEN MAX on 04/22/17 0709 Potassium Chloride 20 Meq Tab, 40 MEQ PO DAILY, (Reported) TAKE 2 (20MEQ) TABLETS Prednisone 20 Mg Tab, 20 MG PO BID Prescribed by: LINDEN MAX on 04/22/17 0709 Ropinirole HCl 2 Mg Tablet, 2 MG PO HS, (Reported) Constitutional: chills, diaphoresis, fever, malaise, No weakness, No weight loss EENTM: nose congestion, No ear discharge, No hearing loss, No ear pain, No eye pain, No nose pain Respiratory: cough, No phlegm, short of breath, No stridor, No wheezing Cardiovascular: No chest pain, No edema Gastrointestinal: No abdominal pain, No constipation, No diarrhea, nausea, No vomiting Genitourinary: No discharge, No dysuria : No Past Opwvvpu-Nvlgpi-Fteirg Hx Patient Social History Smoking Status: Former Smoker Type Used: Cigarettes Former Smoker, Quit: Apr 11, 2007 Recent Foreign Travel: No Contact w/Someone Who Travel: No Immunizations Up To Date Date of Influenza Vaccine: Dec 18, 2014 Reproductive System Hx Reproductive Disorders: No Sexually Transmitted Disease: No Musculoskeletal Musculoskeletal Disorders: Arthritis Family Medical History Family Medial History: Arthritis 19 MOTHER Cataracts 19 MOTHER G8 BROTHER Diabetes mellitus 19 MOTHER Physical Exam Vital Signs Vital Signs - First Documented 04/22/17 06:04 Temp 100.2 Pulse 100 Resp 23 B/P (MAP) 103/77 (86) Pulse Ox 95 O2 Delivery Room Air Capillary Refill : General Appearance: WD/WN, mild distress Eyes: Bilateral Eye Normal Inspection, Bilateral Eye PERRL, Bilateral Eye EOMI HEENT: PERRL/EOMI, normal ENT inspection, TMs normal, pharynx normal ( oropharynx is mildly dry) Neck: non-tender, supple, normal inspection Respiratory: chest non-tender, lungs clear, no respiratory distress, no accessory muscle use, wheezing (you, upper airway sounds) Cardiovascular: normal peripheral pulses, regular rate, rhythm, no JVD, other ( trace pedal edema) Gastrointestinal: normal bowel sounds, non tender, soft, no organomegaly Neurologic/Psychiatric: alert, normal mood/affect, oriented x 3 Skin: normal color, warm/dry Progress/Results/Core Measures Suspected Sepsis SIRS Temperature: Pulse: Respiratory Rate: Laboratory Tests 04/22/17 06:20: White Blood Count 6.3 Blood Pressure / Mean: Laboratory Tests 04/22/17 06:20: Creatinine 0.77, Platelet Count 121L, Total Bilirubin 1.1H Results/Orders Lab Results Laboratory Tests Test 04/22/17 06:20 Range/Units White Blood Count 6.3 4.3-11.0 10^3/uL Red Blood Count 4.66 4.35-5.85 10^6/uL Hemoglobin 14.2 11.5-16.0 G/DL Hematocrit 42 35-52 % Mean Corpuscular Volume 90 80-99 FL Mean Corpuscular Hemoglobin 31 25-34 PG Mean Corpuscular Hemoglobin Concent 34 32-36 G/DL Red Cell Distribution Width 12.8 10.0-14.5 % Platelet Count 121 L 130-400 10^3/uL Mean Platelet Volume 11.0 H 7.4-10.4 FL Neutrophils (%) (Auto) 84 H 42-75 % Lymphocytes (%) (Auto) 9 L 12-44 % Monocytes (%) (Auto) 6 0-12 % Eosinophils (%) (Auto) 0 0-10 % Basophils (%) (Auto) 0 0-10 % Neutrophils # (Auto) 5.3 1.8-7.8 X 10^3 Lymphocytes # (Auto) 0.6 L 1.0-4.0 X 10^3 Monocytes # (Auto) 0.4 0.0-1.0 X 10^3 Eosinophils # (Auto) 0.0 0.0-0.3 10^3/uL Basophils # (Auto) 0.0 0.0-0.1 10^3/uL Sodium Level 140 135-145 MMOL/L Potassium Level 4.1 3.6-5.0 MMOL/L Chloride Level 105 98-107 MMOL/L Carbon Dioxide Level 23 21-32 MMOL/L Anion Gap 12 5-14 MMOL/L Blood Urea Nitrogen 13 7-18 MG/DL Creatinine 0.77 0.60-1.30 MG/DL Estimat Glomerular Filtration Rate > 60 BUN/Creatinine Ratio 17 Glucose Level 151 H 70-105 MG/DL Calcium Level 8.7 8.5-10.1 MG/DL Total Bilirubin 1.1 H 0.1-1.0 MG/DL Aspartate Amino Transf (AST/SGOT) 27 5-34 U/L Alanine Aminotransferase (ALT/SGPT) 19 0-55 U/L Alkaline Phosphatase 112 40-136 U/L B-Type Natriuretic Peptide 183.7 H <100.0 PG/ML Total Protein 7.1 6.4-8.2 GM/DL Albumin 4.0 3.2-4.5 GM/DL My Orders Orders - LINDEN MAX BNP (04/22/17 06:10) Cbc With Automated Diff (04/22/17 06:10) Comprehensive Metabolic Panel (04/22/17 06:10) Chest Pa/Lat (2 View) (04/22/17 06:10) Ketorolac Injection (Toradol Injection) (04/22/17 06:15) Ondansetron Oral Dissolve Tab (Zofran (04/22/17 06:15) Albuterol Pre-Mix Nebs (Rt) (Proventil (04/22/17 06:21) Svn Sm Volume Nebulizer Rt-Rfs (04/22/17 06:21) Acetaminophen Tablet (Tylenol Tablet) (04/22/17 07:00) Medications Given in ED Current Medications Medications Dose Ordered Sig/Sandy Route Start Time Stop Time Status Last Admin Dose Admin Ketorolac Tromethamine 10 mg ONCE ONCE IM 04/22/17 06:15 04/22/17 06:16 DC 04/22/17 06:22 10 MG Ondansetron HCl 4 mg ONCE ONCE PO 04/22/17 06:15 04/22/17 06:16 DC 04/22/17 06:20 4 MG Vital Signs/I&O Vital Sign - Last 12Hours 04/22/17 04/22/17 06:04 06:30 Temp 100.2 Pulse 100 Resp 23 B/P (MAP) 103/77 (86) Pulse Ox 95 98 O2 Delivery Room Air Room Air Capillary Refill : Progress Note #1: Time: 06:19 Progress Note Patient may have some slight wheezing so I gave her a breathing treatment check a chest x-ray. A few basilar crackles were heard. We'll check some basic lab as well as electrolytes and chem panel looking for evidence of dehydration or trouble with using the Lasix and potassium chloride. She is well outside the window and Tamiflu would help and so we have discussed treating her conservatively versus testing for and still treating her conservatively and she would prefer not to be tested. Her going to give her a shot of Toradol and some Zofran. Progress Note #2: Time: 06:40 Progress Note After the breathing treatment patient is able to move more air and her some more audible wheezing heard. Likely a component of reactive airway/bronchitis. Possibly also benefit from a short course of low-dose steroids. Diagnostic Imaging Diagonstic Imaging: Xray Plain Films/CT/US/NM/MRI: chest Comments No acute cardiopulmonary processes noted. Reviewed: Reviewed by Me Departure Impression Impression: Primary Impression: Bronchitis Additional Impression: Influenza-like symptoms Disposition: 01 HOME, SELF-CARE Condition: Improved Departure-Patient Inst. Decision time for Depature: 07:23 Referrals: JESSICA DUKES MD (PCP/Family) Primary Care Physician Patient Instructions: Acute Bronchitis, Adult (DC) Add. Discharge Instructions: Drink plenty of fluids. Use the Zofran 1 tablet every 6 hours on the tongue as needed for nausea. Use your fyyr-wzd-zbteefu medicines especially Tylenol and Motrin for fevers, chills, headaches, body aches. Use a humidifier and vapor rubs and keep heat down in the house so that it doesn't dry the area out. If you feel wheezy or short of breath you may take 2 puffs of the albuterol through the spacer every 4 hours as needed. Take the prednisone one tablet twice daily for 5 days. If you feel like you're unable to keep up with your fluid intake at your Lasix in half and make an appointment to see your doctor. If you feel like you are getting dehydrated then stop taking the Lasix and see your doctor sooner. If you begin to have shortness of breath not controlled with the albuterol/ Ventolin or chest pain or other worsening symptoms return to care. If you're having a hard time getting sleep you may take 25 mg of Benadryl every 6 hours as needed. Scripts Ondansetron (Ondansetron Odt) 4 Mg Tab.rapdis 4 MG PO Q6H Y for NAUSEA/VOMITING, #8 TAB 0 Refills Prov: LINDEN MAX 04/22/17 Albuterol Sulfate (VENTOLIN HFA) 1 Puff Puff 2 PUFF IH Q4H Y for WHEEZING, #1 EA 0 Refills 1 PUFF = 90 MCG Prov: LINDEN MAX 04/22/17 Prednisone (Prednisone) 20 Mg Tab 20 MG PO BID for 5 Days, #10 TAB 0 Refills Prov: LINDEN MAX 04/22/17 Work/School Note: Work Release Form Date Seen in the Emergency Department: Apr 22, 2017 Return to Work: Apr 29, 2017 Restrictions: No Restrictions Copy Copies To 1: JESSICA DUKES MD, TITUS J Apr 22, 2017 06:13
[2017-04-22] MEDS ORDERED: KETOROLAC 30 MG/ML VIAL IM ONE (06:15)
[2017-04-22] MEDS ORDERED: ONDANSETRON 4 MG (ZOFRAN) ORAL DISSOLVE TAB PO ONE (06:15)
[2017-04-22] MEDS ORDERED: RT-ALBUTEROL SULF 2.5 MG/3 ML PRE-MIX VIAL INH STA (06:21)
[2017-04-22 06:31] LABS: BASOPHILS % (AUTO) 0 % (0-10); EOSINOPHILS % (AUTO) 0 % (0-10); HEMATOCRIT 42 % (35-52); HEMOGLOBIN 14.2 G/DL (11.5-16.0); LYMPHOCYTES # (AUTO) 0.6 X 10^3 (1.0-4.0); LYMPHOCYTES % (AUTO) 9 % (12-44); MEAN CORPUSCULAR HEMOGLOBIN 31 PG (25-34); MEAN CORPUSCULAR HGB CONC 34 G/DL (32-36); MEAN CORPUSCULAR VOLUME 90 FL (80-99); MONOCYTES # (AUTO) 0.4 X 10^3 (0.0-1.0); MONOCYTES % (AUTO) 6 % (0-12); NEUTROPHILS # (AUTO) 5.3 X 10^3 (1.8-7.8); NEUTROPHILS % (AUTO) 84 % (42-75); PLATELET COUNT 121 10^3/uL (130-400); RED BLOOD COUNT 4.66 10^6/uL (4.35-5.85); RED CELL DISTRIBUTION WIDTH 12.8 % (10.0-14.5); WHITE BLOOD COUNT 6.3 10^3/uL (4.3-11.0)
[2017-04-22 06:53] LABS: ALANINE AMINOTRANSFERASE 19 U/L (0-55); ALKALINE PHOSPHATASE 112 U/L (40-136); BILIRUBIN,TOTAL 1.1 MG/DL (0.1-1.0); BUN/CREATININE RATIO 17; CALCIUM 8.7 MG/DL (8.5-10.1); CARBON DIOXIDE 23 MMOL/L (21-32); CHLORIDE 105 MMOL/L (98-107); CREATININE SERUM 0.77 MG/DL (0.60-1.30); GFR ESTIMATED > 60; GLUCOSE 151 MG/DL (70-105); POTASSIUM 4.1 MMOL/L (3.6-5.0); SODIUM 140 MMOL/L (135-145); TOTAL PROTEIN 7.1 GM/DL (6.4-8.2)
[2017-04-22] MEDS ORDERED: ACETAMINOPHEN 500 MG TAB (TYLENOL) PO ONE (07:00)
[2017-04-22] MEDS ORDERED: ONDA4TAB11 PO (07:09)
[2017-04-22] MEDS ORDERED: RT-ALBUINH IH (07:09)
[2017-04-22] MEDS ORDERED: PRD20T PO (07:09)
[2017-04-22 07:31] VITALS: BP 111/68
--- NOTE | 2017-04-22 08:01 | Diagnostic Imaging Report ---
INDICATION: Cough, fever and nausea for 3-4 days. Comparison study: CT of the chest from 2011. FINDINGS: Frontal and lateral views of the chest demonstrate the lungs to be clear. The heart, mediastinum and pulmonary vascularity are normal. IMPRESSION: Normal chest. Dictated by: Dictated on workstation # [id number]
[2017-04-23] MEDS ORDERED: ONDA4TAB10 PO (15:16)
[2017-04-23] MEDS ORDERED: FURO40TA4 PO (15:16)
[2017-04-23] MEDS ORDERED: HYDR-3820 PO (15:16)
[2017-04-23] MEDS ORDERED: BACL20TA PO (15:16)
[2017-04-23] MEDS ORDERED: POTA20TA15 PO (15:16)
[2017-04-23] MEDS ORDERED: DIPH25CA6 PO (15:25)
[2017-04-23] MEDS ORDERED: RT-ALBUINH IH (15:25)
== END 2017-04-22 07:31 | disposition home or self-care (01) ==
LOC: EDUNIT# 05:56 → ER 05:59
DX: J11.1 Influenza due to unidentified influenza virus with other respiratory manifestations (principal); J20.9 Acute bronchitis, unspecified; M19.90 Unspecified osteoarthritis, unspecified site; Z87.891 Personal history of nicotine dependence; Z79.52 Long term (current) use of systemic steroids; Z88.0 Allergy status to penicillin
CPT/HCPCS: 36415; 71046; 80053; 83880; 85025; 94640

== ENCOUNTER 2017-04-23 14:02 | Observation (INO) | payer OTHER ==
[~2017-04-23] VITALS: Ht 162.6 cm; Wt 130.2 kg
[~2017-04-23 14:02] MED LIST changes: +ONDA4TAB11 PO; +PRD20T PO; +RT-ALBUINH IH
--- NOTE | 2017-04-23 14:08 | History & Physicial ---
History of Present Illness History of Present Illness Reason for visit/HPI 56-year-old female presents here today with reports of not feeling very well. She is very weak and has not been able to hold down fluids. She was seen yesterday in the emergency department and started on prednisone as well as given Ventolin treatments. She does report the breathing treatments haven't been very helpful. Date of Admission April 23, 2017 Date Seen by Provider: Apr 23, 2017 Time Seen by Provider: 14:10 I consulted on this patient on 04/23/17 14:04 Attending Physician Jessica Dukes MD Admitting Physician Jessica Dukes MD Consult Allergies and Home Medications Allergies Coded Allergies: Penicillins (Verified Allergy, Unknown, 04/22/17) Home Medications Albuterol Sulfate 1 Puff Puff, 2 PUFF IH Q4H PRN for SHORTNESS OF BREATH, ( Reported) 1 PUFF = 90 MCG Baclofen 20 Mg Tablet, 20 MG PO Q8H PRN for MUSCLE SPASMS, (Reported) Diphenhydramine HCl 25 Mg Capsule, 50 MG PO HS PRN for RASH, (Reported) Furosemide 40 Mg Tablet, 80 MG PO DAILY, (Reported) TAKES 2 (40 MG) TABLETS Hydrocodone/Acetaminophen 1 Each Tablet, 1 TAB PO Q6H PRN for PAIN-SEVERE, ( Reported) FOR SEVERE JOINT PAIN Ondansetron HCl 4 Mg Tablet, 4 MG PO Q4H PRN for NAUSEA/VOMITING-1ST LINE, ( Reported) Potassium Chloride 20 Meq Tab.er.prt, 40 MEQ PO DAILY, (Reported) TAKES 2 (20 MEQ) TABLETS Ropinirole HCl 2 Mg Tablet, 2 MG PO HS, (Reported) Past Tedyvsy-Lqjfzx-Caypis Hx Patient Social History Former Smoker, Quit: Apr 11, 2007 Type Used: Cigarettes Recent Hopitalizations: Yes Immunizations Up To Date Pediatric: Yes Date of Influenza Vaccine: Dec 18, 2014 Surgeries Yes ( BILAT THR, BILAT TKR, left shoulder, ) Respiratory No Cardiovascular No Neurological Yes (Restless leg syndrome) Reproductive System Hx Reproductive Disorders: No Sexually Transmitted Disease: No Gastrointestinal No Musculoskeletal Yes Arthritis Endocrine History of Endocrine Disorders: No HEENT History of HEENT Disorders: No Cancer No Psychosocial History of Psychiatric Problem: No Integumentary History of Skin or Integumenta: No Blood Transfusions History of Blood Disorders: No Family Medical History Family Hx: Arthritis 19 MOTHER Cataracts 19 MOTHER G8 BROTHER Diabetes mellitus 19 MOTHER Constitutional: see HPI Physical Exam Vital Signs Vital Signs - First Documented 04/23/17 04/23/17 04/23/17 14:08 15:32 16:00 Temp 101.0 Pulse 109 Resp 20 B/P (MAP) 105/55 (72) Pulse Ox 92 O2 Delivery Room Air Capillary Refill : General Appearance: No Apparent Distress (but she does appear ill) HEENT: Other (mucous membranes are dry) Neck: Supple Respiratory: Crackles, Wheezing Cardiovascular: Regular Rate, Rhythm, Other (with a rate of 110) Gastrointestinal: Soft Rectal: Deferred Back: Normal Inspection Extremity: Normal Capillary Refill Skin: Normal Color Assessment/Plan Assessment and Plan 1. Dehydration -patient to have IV fluids initiated at D5 1 half normal saline at 150 cc per hour -Recheck chemistries in the morning 2. Bronchitis with reactive airway disease -Initiate IV Rocephin -Initiate Zithromax orally -respiratory therapy for breathing treatments 3 Malaise and fatigue and I suspect this may be due to the dehydration or possible flulike syndrome -Check for influenza Problems: Admission Diagnosis 1. Dehydration 2. Bronchitis with reactive airway disease 3 Malaise and fatigue and I suspect this may be due to the dehydration or possible flulike syndrome JESSICA DUKES MD Apr 23, 2017 14:08
[2017-04-23] MEDS ORDERED: AZITHROMYCIN 250 MG TAB (ZITHROMAX) PO NR (14:15)
[2017-04-23] MEDS: D5 1/2 NS 1000 ML IV SOLUTION 1,000 ML IV SCH ×2 (14:55→22:29)
[2017-04-23] MEDS ORDERED: RT-ALBUTEROL SULF 2.5 MG/3 ML PRE-MIX VIAL INH SCH ×2 (15:00→21:00)
--- OUTSIDE RECORDS SUMMARY | 2017-04-23 15:03 | XMS REPORT | Continuity of Care Document ---
Author Author [facility] Address Unknown Phone Unavailable Allergies Active Description Code Type Severity Reaction Onset Reported/Identified Relationship to Patient Clinical Status Yes Penicillins [id number] Drug Allergy Unknown N/A 12/06/2008 Yes Penicillins [...] JAM K V76.12 Mammogram Screening 10/09/2012 SONU NEGATIVE ASSEMBLER, SHARDA R 278.00 OBESITY 10/09/2012 SONU NEGATIVE ASSEMBLER, SHARDA R 724.2 LUMBAGO/ LOW BACK PAIN 10/09/2012 SONU NEGATIVE ASSEMBLER, SHARDA R 782.3 EDEMA 10/09/2012 SONU NEGATIVE ASSEMBLER, SHARDA R V76.12 Mammogram Screening 10/09/2012 SONU NEGATIVE ASSEMBLER, SHARDA R 278.00 OBESITY 10/09/2012 SONU NEGATIVE ASSEMBLER, SHARDA R 724.2 LUMBAGO/ LOW BACK PAIN 10/09/2012 SONU NEGATIVE ASSEMBLER, SHARDA R 782.3 EDEMA 10/09/2012 SONU NEGATIVE ASSEMBLER, SHARDA R V76.12 Mammogram Screening 10/09/2012 SONU NEGATIVE ASSEMBLER, SHARDA R 278.00 OBESITY 10/09/2012 SONU NEGATIVE ASSEMBLER, SHARDA R 724.2 LUMBAGO/ LOW BACK PAIN 10/09/2012 SONU NEGATIVE ASSEMBLER, SHARDA R 782.3 EDEMA 10/09/2012 SONU NEGATIVE ASSEMBLER, SHARDA R V76.12 Mammogram Screening 10/09/2012 SONU NEGATIVE ASSEMBLER, SHARDA R 278.00 OBESITY 10/09/2012 SONU NEGATIVE ASSEMBLER, SHARDA R 724.2 LUMBAGO/ LOW BACK PAIN 10/09/2012 SONU NEGATIVE ASSEMBLER, SHARDA R 782.3 EDEMA 10/09/2012 SONU NEGATIVE ASSEMBLER, SHARDA R V76.12 Mammogram Screening 12/18/2012 JORDY [...] pain, localized in the shoulder 12/18/2012 SONU NEGATIVE ASSEMBLER, SHARDA R 271.3 GLUCOSE INTOLERANCE 12/18/2012 SONU BUTLER, SHARDA R 719.41 joint pain, localized in the shoulder 12/18/2012 SONU NEGATIVE ASSEMBLER, SHARDA R 271.3 GLUCOSE INTOLERANCE 12/18/2012 SONU NEGATIVE ASSEMBLER, SHARDA R 719.41 joint pain, localized in the shoulder 12/18/2012 SONU NEGATIVE ASSEMBLER, SHARDA R 271.3 GLUCOSE INTOLERANCE 12/18/2012 SONU NEGATIVE ASSEMBLER, SHARDA R 719.41 joint pain, localized in the shoulder 12/18/2012 SONU NEGATIVE ASSEMBLER, SHARDA R 271.3 GLUCOSE INTOLERANCE 12/18/2012 SONU NEGATIVE ASSEMBLER, SHARDA R 719.41 joint pain, localized in [...] SUPERIOR GLENOID LABRUM LESIONS 03/12/2014 SEJAL THOMSON CERTIFIED ENERGY MANAGER Ot V57.1 03/12/2014 SEJAL THOMSON CERTIFIED ENERGY MANAGER Ot V58.49 03/12/2014 SEJAL THOMSON CERTIFIED ENERGY MANAGER Ot V57.1 03/12/2014 SEJAL THOMSON CERTIFIED ENERGY MANAGER Ot V58.49 03/12/2014 SEJAL THOMSON CERTIFIED ENERGY MANAGER Ot V57.1 03/12/2014 SEJAL THOMSON CERTIFIED ENERGY MANAGER Ot V58.49 03/25/2014 IBIS CAPPS MD Ot 840.4 03/25/2014 IBSI CAPPS MD Ot E000.8 03/25/2014 JEFRY GREENWOOD, IBIS Arias Ot E928.9 03/25/2014 JEFRY GREENWOOD, IBIS P Ot V72.63 03/25/2014 JEFRY GREENWOOD, IBIS P Ot V74.8 04/09/2014 SEJAL THOMSON CERTIFIED ENERGY MANAGER Ot V57.1 04/09/2014 SEJAL THOMSON CERTIFIED ENERGY MANAGER Ot V58.49 04/12/2014 SEJAL THOMSON CERTIFIED ENERGY MANAGER Ot V57.1 PHYSICAL THERAPY NEC 04/12/2014 SEJAL THOMSON CERTIFIED ENERGY MANAGER Ot V58.49 OTHER SPECIFIED AFTERCARE FOLLOWING SURG [...] BALBIR BONILLA MD Ot E66.01 12/24/2014 IRENE GREENWOOD, BALBIR Ot Z01.812 12/24/2014 IRENE GREENWOOD, BALBIR [...] IMPLANT INTERNAL D 06/28/2015 Ot 996.47 OTHER [facility] [place] COMPLICATION OF PROSTHETIC SUSAN 06/28/2015 Ot V43.65 [...] Ot 719.06 JOINT EFFUSION-L/LEG 07/02/2015 Ot 996.59 [facility] [place]. COMPLIC, OT. IMPLANT INTERNAL D 07/02/2015 Ot 996.47 OTHER [facility] [place] COMPLICATION OF PROSTHETIC SUSAN 07/02/2015 Ot V43.65 [...] Ot E000.8 OTHER EXTERNAL CAUSE STATUS 07/02/2015 IBIS CAPPS MD Ot E928.9 ACCIDENT NOS 07/02/2015 [...] SCREENING FOR OTHER BACTER 01/12/2016 BALBIR BONILLA MD, Ot Z68.43 BODY MASS [...] E000.8 OTHER EXTERNAL CAUSE STATUS 07/27/2016 IBIS CPAPS MD Ot E928.9 ACCIDENT NOS 07/27/2016 IBIS [...] 03/20/2010 37.22 03/21/2010 88.53 03/21/2010 88.56 03/21/2010 80632 MAMMOGRAM, SCREENING 10/09/2012 Physical Physical Therapy, [facility] 12/18/2012 30340 MRI EXTREMITY JOINT, UPPER LEFT, W/O CONTRAST 04/15/2013 83409 [employer] 06/30/2013 78860 XRAY SHOULDER LEFT COMP 2 VIEWS 07/08/201352734 JOINT INJECTION- INTERMEDIATE JOINT 07/09/2013 00475 [employer] 02/12/2014 16763 [facility] 02/20/2014 [id number] EXCISION OF STOMACH, PERCUTANEOUS ENDOSC 12/16/2014 Results Test Result Range Complete blood count (CBC) with automated white blood cell (WBC) differential - 04/22/17 06:20 Blood leukocytes automated count (number/volume) 6.3 10*3/uL 4.3-11.0 Blood erythrocytes automated count (number/volume) 4.66 10*6/uL 4.35-5.85 Venous blood hemoglobin measurement (mass/volume) 14.2 g/dL 11.5-16.0 Blood hematocrit (volume fraction) 42 % 35-52 Automated erythrocyte mean corpuscular volume 90 [foz_us] 80-99 Automated erythrocyte mean corpuscular hemoglobin (mass per erythrocyte) 31 pg 25-34 Automated erythrocyte mean corpuscular hemoglobin concentration measurement ( mass/volume) 34 g/dL 32-36 Automated erythrocyte distribution width ratio 12.8 % 10.0-14.5 Automated blood platelet count (count/volume) 121 10*3/uL 130-400 Automated blood platelet mean volume measurement 11.0 [foz_us] 7.4-10.4 Automated blood neutrophils/100 leukocytes 84 % 42-75 Automated blood lymphocytes/100 leukocytes 9 % 12-44 Blood monocytes/100 leukocytes 6 % 0-12 Automated blood eosinophils/100 leukocytes 0 % 0-10 Automated blood basophils/100 leukocytes 0 % 0-10 Blood neutrophils automated count (number/volume) 5.3 10*3 1.8-7.8 Blood lymphocytes automated count (number/volume) 0.6 10*3 1.0-4.0 Blood monocytes automated count (number/volume) 0.4 10*3 0.0-1.0 Automated eosinophil count 0.0 10*3/uL 0.0-0.3 Automated blood basophil count (count/volume) 0.0 10*3/uL 0.0-0.1 Comprehensive metabolic panel - 04/22/17 06:20 Serum or plasma sodium measurement (moles/volume) 140 mmol/L 135-145 Serum or plasma potassium measurement (moles/volume) 4.1 mmol/L 3.6-5.0 Serum or plasma chloride measurement (moles/volume) 105 mmol/L 98-107 Carbon dioxide 23 mmol/L 21-32 Serum or plasma anion gap determination (moles/volume) 12 mmol/L 5-14 Serum or plasma urea nitrogen measurement (mass/volume) 13 mg/dL 7-18 Serum or plasma creatinine measurement (mass/volume) 0.77 mg/dL 0.60-1.30 Serum or plasma urea nitrogen/creatinine mass ratio 17 NRG Serum or plasma creatinine measurement with calculation of estimated glomerular filtration rate > NRG Serum or plasma glucose measurement (mass/volume) 151 mg/dL 70-105 Serum or plasma calcium measurement (mass/volume) 8.7 mg/dL 8.5-10.1 Serum or plasma total bilirubin measurement (mass/volume) 1.1 mg/dL 0.1-1.0 Serum or plasma alkaline phosphatase measurement (enzymatic activity/volume) 112 U/L 40-136 Serum or plasma aspartate aminotransferase measurement (enzymatic activity/ volume) 27 U/L 5-34 Serum or plasma alanine aminotransferase measurement (enzymatic activity/volume ) 19 U/L 0-55 Serum or plasma protein measurement (mass/volume) 7.1 g/dL 6.4-8.2 Serum or plasma albumin measurement (mass/volume) 4.0 g/dL 3.2-4.5 Serum or plasma lithium measurement (moles/volume) - 04/22/17 06:20 BNP level 183.7 pg/mL <100.0 Encounters ACCT No. Visit Date/Time Discharge Status Pt. Type Provider Facility Loc./Unit Complaint [id number] 05/12/2014 15:52:00 05/12/2014 23:59:59 CLS Outpatient SHARDA ASCENCIO APRN [id number] 02/20/2014 12:28:00 02/20/2014 23:59:59 CLS Outpatient SHARDA ASCENCIO APRN [id number] 02/12/2014 08:00:00 02/12/2014 23:59:59 CLS Outpatient SHARDA ASCENCIO APRN [id number] 11/03/2013 13:31:00 11/03/2013 23:59:59 CLS Outpatient SHRADA ASCENCIO APRN [id number] 07/23/2013 15:58:00 07/23/2013 23:59:59 CLS Outpatient JAM DEL REAL DO [id number] 07/09/2013 16:12:00 07/09/2013 23:59:59 CLS Outpatient JAM DEL REAL DO [id number] 04/15/2013 15:37:00 04/15/2013 23:59:59 CLS Outpatient JORDY MAGAÑA MD [id number] 12/18/2012 16:46:00 12/18/2012 23:59:59 CLS Outpatient JORDY MAGAÑA MD [id number] 10/09/2012 15:53:00 10/09/2012 23:59:59 CLS Outpatient JORDY MAGAÑA MD [id number] 06/28/2015 08:12:00 06/28/2015 23:59:59 CLS Outpatient ERNST GREENWOOD, JESSICA [facility] RAD BILAT BREAST NODULE [id number] 05/25/2015 15:08:00 05/25/2015 23:59:59 CLS Outpatient JESSICA DUKES MD [facility] RAD SCREENING [id number] 05/25/2015 06:38:00 05/25/2015 23:59:59 CLS Outpatient JESSICA DUKES MD [facility] LAB FATIGUE,MALAISE,ALOPECIA [id number] 12/16/2014 07:25:00 12/18/2014 12:50:00 DIS Inpatient BALBIR BONILLA MD [facility] 4TH MORBID OBESITY [id number] 12/08/2014 09:56:00 12/08/2014 23:59:59 CLS Outpatient BALBIR BONILLA MD [facility] PREOP MORBID OBESITY [id number] 09/22/2014 14:41:00 09/22/2014 23:59:59 CLS Outpatient CASH KIRBY [facility] QUICK [id number] 09/01/2014 08:41:00 09/01/2014 23:59:59 CLS Outpatient BALBIR BONILLA MD [facility] RAD REFLUX,T CHOL [id number] 03/24/2014 11:23:00 04/12/2014 11:08:00 DIS Outpatient SEJAL THOMSON [facility] REHAB L SHOULDER SCOPE BICEP TENOTOMY CHONDROPLASTY [id number] 03/03/2014 08:36:00 03/03/2014 14:45:00 DIS Outpatient IBIS CAPPS MD [facility] SDC LEFT SHOULDER TORN ROTATOR CUFF [id number] 03/01/2014 14:33:00 03/01/2014 23:59:59 CLS Outpatient IBIS CAPPS MD [facility] PREOP LEFT SHOULDER TORN ROTATOR CUFF [id number] 02/20/2013 15:56:00 02/26/2013 16:52:00 DIS Outpatient JORDY MAGAÑA MD [facility] REHAB L SHOULDER PAIN [id number] 10/13/2012 06:52:00 10/13/2012 23:59:59 CLS Outpatient JORDY MAGAÑA MD [facility] LAB EDEMA,HYPERTENSION [id number] 08/06/2012 11:19:00 08/06/2012 23:59:59 CLS Outpatient [id number] 04/22/2017 06:37:00 Document Registration [id number] 07/28/2014 16:43:00 Document Registration [id number] 07/28/2014 16:42:00 Document Registration [id number] 07/28/2014 16:42:00 Document Registration [id number] 07/28/2014 16:42:00 Document Registration [id number] 07/28/2014 16:42:00 Document Registration [id number] 12/18/2011 16:11:00 Document Registration [id number] 05/25/2011 06:47:00 Document Registration [id number] 07/26/2010 09:44:00 Document Registration [id number] 03/20/2010 09:40:00 Document Registration [id number] 03/17/2010 10:22:00 Document Registration [id number] 03/03/2010 11:02:00 Document Registration [id number] 11/25/2009 09:47:00 Document Registration [id number] 08/30/2009 11:55:00 Document Registration [id number] 02/21/2009 15:56:00 Document Registration
[2017-04-23] MEDS ORDERED: BACL20TA PO (15:16)
[2017-04-23] MEDS ORDERED: ONDA4TAB10 PO (15:16)
[2017-04-23] MEDS ORDERED: FURO40TA4 PO (15:16)
[2017-04-23] MEDS ORDERED: POTA20TA15 PO (15:16)
[2017-04-23] MEDS ORDERED: HYDR-3820 PO (15:16)
[2017-04-23] MEDS ORDERED: RT-ALBUTEROL SULF 2.5 MG/3 ML PRE-MIX VIAL ONE (15:21)
[2017-04-23] MEDS ORDERED: DIPH25CA6 PO (15:25)
[2017-04-23] MEDS ORDERED: RT-ALBUINH IH (15:25)
[2017-04-23] MEDS ORDERED: CATHETER FLUSH 10 ML SYR IV PRN (15:30)
[2017-04-23] MEDS ORDERED: RT-LEVALBUTEROL (XOPENEX) 1.25 MG/3 ML NEB NON-FORMULARY INH PRN (15:45)
[2017-04-23 16:00] VITALS: BP 105/55
[2017-04-23] MEDS ORDERED: NON-FORMULARY MEDICATION 1 EA EA (Ondansetron HCl 4 MG) PO PRN (16:00)
[2017-04-23] MEDS ORDERED: NON-FORMULARY MEDICATION 1 EA EA (Baclofen 20 MG) PO PRN (16:00)
[2017-04-23] MEDS ORDERED: ONDANSETRON 4 MG (ZOFRAN) ORAL DISSOLVE TAB PO PRN (16:00)
[2017-04-23] MEDS ORDERED: diphenhydrAMINE 25 MG TAB (BENADRYL) PO PRN (16:00)
[2017-04-23] MEDS ORDERED: NON-FORMULARY MEDICATION 1 EA EA (Diphenhydramine HCl 50 MG) PO PRN (16:00)
[2017-04-23] MEDS: ACETAMINOPHEN 500 MG TAB (TYLENOL) PO PRN (16:07)
[2017-04-23] MEDS: cefTRIAXone INJECTION 1,000 MG in NS (IVPB) 50 ML IV SCH (16:08)
[2017-04-23] MEDS ORDERED: ONDANSETRON 4 MG/2 ML (SDV) Z0FRAN IVP PRN (17:30)
[2017-04-23] MEDS: HYDROcodone/APAP 10 MG/325 MG (LORTAB) TAB PO PRN (18:55)
[2017-04-23 20:00] VITALS: BP 116/60
[2017-04-23] MEDS: RT-LEVALBUTEROL (XOPENEX) 1.25 MG/3 ML NEB NON-FORMULARY INH SCH (21:36)
[2017-04-23] MEDS: BACLOFEN 10 MG (LIORESAL) TAB PO PRN (22:29)
[2017-04-24] VITALS: BP 114/66
[2017-04-24] MEDS: HYDROcodone/APAP 10 MG/325 MG (LORTAB) TAB PO PRN ×3 (01:12→16:25)
[2017-04-24] MEDS: guaiFENesin/CODEINE (ROBITUSSIN AC) 10ML UDC PO PRN ×5 (01:44→21:19)
[2017-04-24 04:00] VITALS: BP 116/67
[2017-04-24 05:27] LABS: HEMATOCRIT 36 % (35-52); HEMOGLOBIN 12.1 G/DL (11.5-16.0); LYMPHOCYTES % (AUTO) 25 % (12-44); MEAN CORPUSCULAR HEMOGLOBIN 30 PG (25-34); MEAN CORPUSCULAR HGB CONC 34 G/DL (32-36); MEAN CORPUSCULAR VOLUME 89 FL (80-99); MEAN PLATELET VOLUME 10.8 FL (7.4-10.4); MONOCYTES % (AUTO) 7 % (0-12); NEUTROPHILS % (AUTO) 67 % (42-75); PLATELET COUNT 109 10^3/uL (130-400); RED BLOOD COUNT 4.03 10^6/uL (4.35-5.85); WHITE BLOOD COUNT 7.9 10^3/uL (4.3-11.0)
[2017-04-24 05:28] LABS: BASOPHILS % (AUTO) 0 % (0-10); EOSINOPHILS % (AUTO) 0 % (0-10); MONOCYTES # (AUTO) 0.6 X 10^3 (0.0-1.0); NEUTROPHILS # (AUTO) 5.4 X 10^3 (1.8-7.8)
[2017-04-24 05:49] LABS: ALANINE AMINOTRANSFERASE 18 U/L (0-55); ALBUMIN 3.6 GM/DL (3.2-4.5); ALKALINE PHOSPHATASE 84 U/L (40-136); BILIRUBIN,TOTAL 0.9 MG/DL (0.1-1.0); BUN/CREATININE RATIO 19; CALCIUM 8.1 MG/DL (8.5-10.1); CARBON DIOXIDE 23 MMOL/L (21-32); CHLORIDE 104 MMOL/L (98-107); CREATININE SERUM 0.68 MG/DL (0.60-1.30); GFR ESTIMATED > 60; GLUCOSE 161 MG/DL (70-105); POTASSIUM 3.1 MMOL/L (3.6-5.0); SODIUM 138 MMOL/L (135-145); TOTAL PROTEIN 6.4 GM/DL (6.4-8.2)
[2017-04-24] MEDS: D5 1/2 NS 1000 ML IV SOLUTION 1,000 ML IV SCH ×3 (06:24→14:13)
[2017-04-24] MEDS: KCL 20 MEQ TAB (K-DUR) PO SCH (06:24)
[2017-04-24] MEDS: RT-LEVALBUTEROL (XOPENEX) 1.25 MG/3 ML NEB NON-FORMULARY INH SCH ×3 (06:55→22:10)
--- NOTE | 2017-04-24 07:32 | Progress Note (SOAP) ---
Subjective Date Seen by Provider: Apr 24, 2017 Time Seen by Provider: 07:30 Subjective/Events-last exam Persistent coughing overnight. Objective Exam Vital Signs Date Time Temp Pulse Resp B/P (MAP) Pulse Ox O2 Delivery O2 Flow Rate FiO2 04/24/17 06:55 96 Room Air 04/24/17 04:00 97.3 90 16 116/67 (83) 96 Room Air 04/24/17 00:00 98.1 96 17 114/66 (82) 95 Room Air 04/23/17 21:37 94 Room Air 04/23/17 21:15 95 Room Air 04/23/17 20:00 99.3 92 20 116/60 (78) 94 Room Air 04/23/17 16:00 101.0 109 20 105/55 (72) 96 Room Air 04/23/17 15:32 92 Room Air 04/23/17 14:08 Room Air I & O 04/24/17 07:00 Intake Total 1570 ml Output Total 700 ml Balance 870 ml Capillary Refill : General Appearance: No Apparent Distress Neck: Supple Respiratory: Wheezing (apical region) Cardiovascular: Regular Rate, Rhythm Gastrointestinal: soft Results Lab Laboratory Tests 04/24/17 05:09: White Blood Count 7.9, Red Blood Count 4.03L, Hemoglobin 12.1, Hematocrit 36, Mean Corpuscular Volume 89, Mean Corpuscular Hemoglobin 30, Mean Corpuscular Hemoglobin Concent 34, Red Cell Distribution Width 13.0, Platelet Count 109L, Mean Platelet Volume 10.8H, Neutrophils (%) (Auto) 67, Lymphocytes (%) (Auto) 25 , Monocytes (%) (Auto) 7, Eosinophils (%) (Auto) 0, Basophils (%) (Auto) 0, Neutrophils # (Auto) 5.4, Lymphocytes # (Auto) 2.0, Monocytes # (Auto) 0.6, Eosinophils # (Auto) 0.0, Basophils # (Auto) 0.0, Sodium Level 138, Potassium Level 3.1L, Chloride Level 104, Carbon Dioxide Level 23, Anion Gap 11, Blood Urea Nitrogen 13, Creatinine 0.68, Estimat Glomerular Filtration Rate > 60, BUN/ Creatinine Ratio 19, Glucose Level 161H, Calcium Level 8.1L, Total Bilirubin 0.9 , Aspartate Amino Transf (AST/SGOT) 33, Alanine Aminotransferase (ALT/SGPT) 18, Alkaline Phosphatase 84, Total Protein 6.4, Albumin 3.6 Microbiology 04/23/17 Influenza Types A,B Antigen (DANNIELLE) - Final, Complete Assessment/Plan Assessment/Plan Assess & Plan/Chief Complaint 1. Dehydration -patient to have IV fluids initiated at D5 1 half normal saline at 150 cc per hour -Recheck chemistries in the morning 04/24 -noted glucose 161 probably related to ivfs -decrease IVFs to 100cc/hr 2. Bronchitis with reactive airway disease -Initiate IV Rocephin -Initiate Zithromax orally -respiratory therapy for breathing treatments 04/24 -day 2 rocephin -add on IV solumedrol 3 Malaise and fatigue and I suspect this may be due to the dehydration or possible flulike syndrome -Check for influenza 04/24 Influenza negative Clinical Quality Measures DVT/VTE Risk/Contraindication: Risk Factor Score Per Nursin RFS Level Per Nursing on Admit: 4+=Very High JESSICA DUKES MD Apr 24, 2017 07:32
[2017-04-24 07:42] VITALS: BP 112/59
[2017-04-24] MEDS: cefTRIAXone INJECTION 1,000 MG in NS (IVPB) 50 ML IV SCH (07:59)
[2017-04-24 11:50] VITALS: BP 110/59
[2017-04-24] MEDS: methylPREDNISolone 125 MG (Solu-MEDROL) VIAL IV SCH ×3 (12:03→23:51)
[2017-04-24 16:02] VITALS: BP 126/75
[2017-04-24 19:57] VITALS: BP 126/58
[2017-04-24] MEDS: ACETAMINOPHEN 500 MG TAB (TYLENOL) PO PRN (21:21)
[2017-04-24] MEDS: BACLOFEN 10 MG (LIORESAL) TAB PO PRN (21:52)
[2017-04-25] VITALS: BP 119/68
[2017-04-25] MEDS ORDERED: risperiDONE 1 MG (RisperDAL) TAB ONE
[2017-04-25] MEDS: D5 1/2 NS 1000 ML IV SOLUTION 1,000 ML IV SCH (00:07)
[2017-04-25] MEDS: methylPREDNISolone 125 MG (Solu-MEDROL) VIAL IV SCH (06:14)
[2017-04-25] MEDS: KCL 20 MEQ TAB (K-DUR) PO SCH (06:16)
[2017-04-25] MEDS: ACETAMINOPHEN 500 MG TAB (TYLENOL) PO PRN (06:19)
--- NOTE | 2017-04-25 07:38 | Discharge Summary ---
Diagnosis/Chief Complaint Date of Admission Apr 23, 2017 at 14:20 Date of Discharge April 25, 2017 Discharge Date: Apr 25, 2017 Discharge Time: 07:45 Admission Diagnosis Admission Diagnosis 1. Dehydration 2. Bronchitis with reactive airway disease 3 Malaise and fatigue and I suspect this may be due to the dehydration or possible flulike syndrome Discharge Diagnosis 1. Dehydration 2. Bronchitis with severe reactive airway disease 3 Flu syndrome Reason Hospital Visit 56-year-old female presents here today with reports of not feeling very well. She is very weak and has not been able to hold down fluids. She was seen yesterday in the emergency department and started on prednisone as well as given Ventolin treatments. She does report the breathing treatments haven't been very helpful. Discharge Summary Hospital Course Hospital Course patient was admitted for observation on April 23, 2017 due to respiratory distress and unrelenting cough. During the course of her hospital she was initiated on breathing treatments and ultimately placed on Xopenex The albuterol treatments caused cardiac palpitations. She was initiated on IV Rocephin as well daily 1 g. In the morning of April 24 with persistent wheezing IV Solu-Medrol was initiated. Patient responded well during the afternoon and production planning manager of April 25with the Solu-Medrol. She was noted to be afebrile for dismissal in the morning of April 25, 2017 Labs Laboratory Tests 04/24/17 05:09: Red Blood Count 4.03L, Platelet Count 109L, Mean Platelet Volume 10.8H, Potassium Level 3.1L, Glucose Level 161H, Calcium Level 8.1L Procedures None. Discharge Physical Examination Allergies: Coded Allergies: Penicillins (Verified Allergy, Unknown, 04/22/17) Vitals & I&Os Vital Signs Date Time Temp Pulse Resp B/P (MAP) Pulse Ox O2 Delivery O2 Flow Rate FiO2 04/25/17 00:00 98.9 87 18 119/68 (85) 97 Room Air General Appearance: Alert, No Acute Distress HEENT: Mucous Memb Moist/[place] Respiratory: Clear to Auscultation (with very faint expiratory wheeze in apical area) Cardiovascular: Regular Rate Abdominal: Soft Skin: No Rashes, No Significant Lesion Neuro: Normal Speech Discharge Home Medications Reviewed and agree with Discharge Medication list on patient's Discharge Instruction sheet Instructions to Patient/Family Please see electronic discharge instructions given to patient. Clinical Quality Measures DVT/VTE Risk/Contraindication: Risk Factor Score Per Nursin RFS Level Per Nursing on Admit: 4+=Very High JESSICA DUKES MD Apr 25, 2017 07:38
[2017-04-25] MEDS ORDERED: CEFD300C3 PO (07:42)
[2017-04-25] MEDS ORDERED: LEVA1.2516 INH (07:42)
[2017-04-25] MEDS ORDERED: PRD20T PO (07:42)
--- NOTE | 2017-04-25 07:44 | Discharge Inst-Simple/Standard ---
Discharge Inst-Standard Discharge Medications New, Converted or Re-Newed RX: Transmitted to Pharmacy Patient Instructions/Follow Up Plan of Care/Instructions/FU: take prednisone 2 daily for 4 days then 1 daily for 4 days (12 pills) FU with Dr Dukes on Saturday04/30/2017 Activity as Tolerated: Yes Discharge Diet: Regular Diet Return to The Hospital For: Respiratory distress or persistent fever Planned Outpatient Orders/Ref. Pneu Vac Indicated: Yes JESSICA DUKES MD Apr 25, 2017 07:44
[2017-04-25] MEDS: RT-LEVALBUTEROL (XOPENEX) 1.25 MG/3 ML NEB NON-FORMULARY INH SCH (07:55)
[2017-04-25 08:30] VITALS: BP 121/69
[2017-04-25] MEDS: BACLOFEN 10 MG (LIORESAL) TAB PO PRN (08:32)
[2017-04-25] MEDS ORDERED: cefTRIAXone 1 GM/NS 100 ML IVPB IV SCH ×2 (09:00)
[2017-04-25] MEDS: HYDROcodone/APAP 10 MG/325 MG (LORTAB) TAB PO PRN (10:14)
[2017-04-25 10:30] VITALS: BP 121/69
[2017-04-25] MEDS ORDERED: rOPINIRole 1 MG (REQUIP) TABLET PO SCH (21:00)
== END 2017-04-25 07:42 | disposition home or self-care (01) ==
LOC: 4TH 14:15 → UNDOADMOB 14:20 → 4TH 14:20 → UNDODISOB 04-25 11:15
PROVIDERS: ADMIT Family Medicine; ATTEND Family Medicine
DX: E86.0 Dehydration (principal); J40 Bronchitis, not specified as acute or chronic; R53.81 Other malaise; G25.81 Restless legs syndrome; F17.210 Nicotine dependence, cigarettes, uncomplicated; Z96.643 Presence of artificial hip joint, bilateral; Z96.653 Presence of artificial knee joint, bilateral; Z96.612 Presence of left artificial shoulder joint; Z79.899 Other long term (current) drug therapy
CPT/HCPCS: 36415; 80053; 85025; 87804; 94640; 94760; 99211; G0378

== ENCOUNTER 2017-11-19 12:49 | Emergency (ER) | payer OTHER ==
[~2017-11-19] VITALS: Ht 162.6 cm; Wt 122.5 kg
[~2017-11-19 12:49] MED LIST changes: +CEFD300C3 PO; +DIPH25CA6 PO; +LEVA1.2516 INH; +ONDA4TAB10 PO; +POTA20TA15 PO
--- OUTSIDE RECORDS SUMMARY | 2017-11-19 12:56 | XMS REPORT | Continuity of Care Document ---
Author Author Formerly [facility] Address Unknown Phone Unavailable Allergies Active Description Code Type Severity Reaction Onset Reported/Identified Relationship to Patient Clinical Status Yes Penicillins Drug Allergy N/A N/A 10/09/2012 Yes Penicillins [id number] Drug Allergy Unknown N/A 04/22/2017 Medications There is no data. Problems Date [...] JAM K V76.12 Mammogram Screening 10/09/2012 SONU PRODUCE ASSISTANT, SHARDA R 278.00 OBESITY 10/09/2012 SONU PRODUCE ASSISTANT, SHARDA R 724.2 LUMBAGO/ LOW BACK PAIN 10/09/2012 SONU PRODUCE ASSISTANT, SHARDA R 782.3 EDEMA 10/09/2012 SONU PRODUCE ASSISTANT, SHARDA R V76.12 Mammogram Screening 10/09/2012 SONU PRODUCE ASSISTANT, SHARDA R 278.00 OBESITY 10/09/2012 SONU PRODUCE ASSISTANT, SHARDA R 724.2 LUMBAGO/ LOW BACK PAIN 10/09/2012 SONU PRODUCE ASSISTANT, SHARDA R 782.3 EDEMA 10/09/2012 SONU PRODUCE ASSISTANT, SHARDA R V76.12 Mammogram Screening 10/09/2012 SONU PRODUCE ASSISTANT, SHARDA R 278.00 OBESITY 10/09/2012 SONU PRODUCE ASSISTANT, SHARDA R 724.2 LUMBAGO/ LOW BACK PAIN 10/09/2012 SONU PRODUCE ASSISTANT, SHARDA R 782.3 EDEMA 10/09/2012 SONU PRODUCE ASSISTANT, SHARDA R V76.12 Mammogram Screening 10/09/2012 SONU PRODUCE ASSISTANT, SHARDA R 278.00 OBESITY 10/09/2012 SONU PRODUCE ASSISTANT, SHARDA R 724.2 LUMBAGO/ LOW BACK PAIN 10/09/2012 SONU PRODUCE ASSISTANT, SHARDA R 782.3 EDEMA 10/09/2012 SONU PRODUCE ASSISTANT, SHARDA R V76.12 Mammogram Screening 12/18/2012 JORDY [...] pain, localized in the shoulder 12/18/2012 SONU PRODUCE ASSISTANT, SHARDA R 271.3 GLUCOSE INTOLERANCE 12/18/2012 SONU BUTLER, SHARDA R 719.41 joint pain, localized in the shoulder 12/18/2012 SONU PRODUCE ASSISTANT, SHARDA R 271.3 GLUCOSE INTOLERANCE 12/18/2012 SONU PRODUCE ASSISTANT, SHARDA R 719.41 joint pain, localized in the shoulder 12/18/2012 SONU PRODUCE ASSISTANT, SHARDA R 271.3 GLUCOSE INTOLERANCE 12/18/2012 SONU PRODUCE ASSISTANT, SHARDA R 719.41 joint pain, localized in the shoulder 12/18/2012 SONU PRODUCE ASSISTANT, SHARDA R 271.3 GLUCOSE INTOLERANCE 12/18/2012 SONU PRODUCE ASSISTANT, SHARDA R 719.41 joint pain, localized in [...] SHARDA R 300.00 anxiety 04/15/2013 SONU BUTLER, SHRADA R 300.00 anxiety 04/15/2013 SONU BUTLER, SHARDA R 300.00 anxiety 02/20/2014 SONU BUTLER, SHARDA R 786.2 COUGH 02/20/2014 SONU BUTLER, SHARDA R 786.2 COUGH 03/03/2014 JEFRY GREENWOOD, IBIS Arias Ot 733.92 CHONDROMALACIA 03/03/2014 JEFRY GREENWOOD, IBIS Arias Ot 840.7 (SLAP) SUPERIOR GLENOID LABRUM LESIONS 03/12/2014 SEJAL THOMSON INTERNATIONAL TRADE MANAGER Ot V57.1 03/12/2014 SEJAL THOMSON INTERNATIONAL TRADE MANAGER Ot V58.49 03/12/2014 SEJAL THMOSON INTERNATIONAL TRADE MANAGER Ot V57.1 03/12/2014 SEJAL THOMSON INTERNATIONAL TRADE MANAGER Ot V58.49 03/12/2014 SEJAL THOMSON INTERNATIONAL TRADE MANAGER Ot V57.1 03/12/2014 SEJAL THOMSON INTERNATIONAL TRADE MANAGER Ot V58.49 03/25/2014 IBIS CAPPS MD Ot 840.4 03/25/2014 IBIS CAPPS MD Ot E000.8 03/25/2014 JEFRY GREENWOOD, IBIS Arias Ot E928.9 03/25/2014 JEFRY GREENWOOD, IBIS P Ot V72.63 03/25/2014 JEFRY GREENWOOD, IBIS P Ot V74.8 04/09/2014 SEJAL THOMSON INTERNATIONAL TRADE MANAGER Ot V57.1 04/09/2014 SEJAL THOMSON INTERNATIONAL TRADE MANAGER Ot V58.49 04/12/2014 SEJAL THOMSON INTERNATIONAL TRADE MANAGER Ot V57.1 PHYSICAL THERAPY NEC 04/12/2014 SEJAL THOMSON INTERNATIONAL TRADE MANAGER Ot V58.49 OTHER SPECIFIED AFTERCARE FOLLOWING [...] IMPLANT INTERNAL D 06/28/2015 Ot 996.47 OTHER [facility] COMPLICATION OF PROSTHETIC SUSAN 06/28/2015 Ot V43.65 [...] Ot 719.06 JOINT EFFUSION-L/LEG 07/02/2015 Ot 996.59 [facility]. COMPLIC, OT. IMPLANT INTERNAL D 07/02/2015 Ot 996.47 OTHER [facility] COMPLICATION OF PROSTHETIC SUSAN 07/02/2015 Ot V43.65 [...] Ot 530.81 ESOPHAGEAL REFLUX 07/27/2016 BALBIR BONILLA MD Ot E66.01 MORBID (SEVERE) OBESITY DUE TO EXCESS CA 07/27/2016 BALBIR BONILLA MD, Ot Z01.812 ENCOUNTER FOR PREPROCEDURAL LABORATORY E 07/27/2016 BALBIR BONILLA MD, Ot Z11.2 ENCOUNTER FOR SCREENING FOR OTHER BACTER 07/27/2016 BALBIR BONILLA MD, Ot Z68.43 BODY MASS INDEX (BMI) 50-59.9 , ADULT 07/27/2016 JESSICA DUKES MD, Ot Z12.31 ENCNTR SCREEN MAMMOGRAM FOR MALIGNANT NE 07/27/2016 JESSICA DUKES MD Ot L65.9 NONSCARRING HAIR LOSS, UNSPECIFIED 07/27/2016 JESSICA DUKES MD Ot R53.81 OTHER MALAISE 07/27/2016 JESSICA DUKES MD Ot R53.83 OTHER FATIGUE 07/27/2016 JESSICA DUKES MD Ot N63 UNSPECIFIED LUMP IN BREAST 04/22/2017 Ot 959.6 HIP THIGH INJURY NOS 04/22/2017 Ot E000.8 OTHER EXTERNAL CAUSE STATUS 04/22/2017 Ot E849.0 ACCIDENT IN HOME 04/22/2017 Ot E885.9 FALL FROM SLIPPING, TRIPPING, OR STUMBLI 04/22/2017 Ot V43.64 HIP JOINT REPLACEMENT STATUS 04/22/2017 JORDY MAGAÑA MD Ot 401.9 HYPERTENSION NOS 04/22/2017 JORDY MAGAÑA MD Ot 782.3 EDEMA 04/22/2017 IBIS CAPPS MD Ot 840.4 SPRAIN ROTATOR CUFF 04/22/2017 IBIS CAPPS MD Ot E000.8 OTHER EXTERNAL CAUSE STATUS 04/22/2017 IBIS CAPPS MD Ot E928.9 ACCIDENT NOS 04/22/2017 IBIS CAPPS MD Ot V72.63 PRE-PROCEDURAL LABORATORY EXAMINATION 04/22/2017 IBIS CAPPS MD Ot V74.8 SCREEN-BACTERIAL DIS NEC 04/22/2017 BALBIR BONILLA MD Ot 272.0 PURE HYPERCHOLESTEROLEM 04/22/2017 BALBIR BONILLA MD Ot 530.81 ESOPHAGEAL REFLUX 04/22/2017 BALBIR BONILLA MD, Ot E66.01 MORBID (SEVERE) OBESITY DUE TO EXCESS CA 04/22/2017 BALBIR BONILLA MD Ot Z01.812 ENCOUNTER FOR PREPROCEDURAL LABORATORY E 04/22/2017 BALBIR BONILLA MD, Ot Z11.2 ENCOUNTER FOR SCREENING FOR OTHER BACTER 04/22/2017 BALBIR BONILLA MD, Ot Z68.43 BODY MASS INDEX (BMI) 50-59.9 , ADULT 04/22/2017 JESSICA DUKES MD, Ot Z12.31 ENCNTR SCREEN MAMMOGRAM FOR MALIGNANT NE 04/22/2017 JESSICA DUKES MD, Ot L65.9 NONSCARRING HAIR LOSS, UNSPECIFIED 04/22/2017 JESSICA DUKES MD, Ot R53.81 OTHER MALAISE 04/22/2017 JESSICA DUKES MD, Ot R53.83 OTHER FATIGUE 04/22/2017 JESSICA DUKES MD, Ot N63 UNSPECIFIED LUMP IN BREAST 04/22/2017 LINDEN MAX MD Ot J11.1 FLU DUE TO UNIDENTIFIED INFLUENZA VIRUS 04/22/2017 LINDEN MAX MD Ot J20.9 ACUTE BRONCHITIS, UNSPECIFIED 04/22/2017 LINDEN MAX MD Ot M19.90 UNSPECIFIED OSTEOARTHRITIS, UNSPECIFIED 04/22/2017 LINDEN MAX MD Ot R06.02 SHORTNESS OF BREATH 04/22/2017 LINDEN MAX MD Ot 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 04/22/2017 LINDEN MAX MD Ot Z87.891 PERSONAL HISTORY OF NICOTINE DEPENDENCE 04/22/2017 LINDEN MAX MD Ot Z88.0 ALLERGY STATUS TO PENICILLIN 04/25/2017 JESSICA DUKES MD Ot E86.0 DEHYDRATION 04/25/2017 JESSICA DUKES MD Ot F17.210 NICOTINE DEPENDENCE, CIGARETTES, UNCOMPL 04/25/2017 JESSICA DUKES MD, Ot G25.81 RESTLESS LEGS SYNDROME 04/25/2017 JESSICA DUKES MD, Ot J40 BRONCHITIS, NOT SPECIFIED ACUTE OR CH 04/25/2017 JESSICA DUKES MD, Ot R53.81 OTHER MALAISE 04/25/2017 JESSICA DUKES MD, Ot Z79.899 OTHER ASSISTED (CURRENT) DRUG THERAPY 04/25/2017 JESSICA DUKES MD Ot 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 04/25/2017 JESSICA DUKES MD Ot Z96.643 PRESENCE OF ARTIFICIAL HIP JOINT, BILATE 04/25/2017 JESSICA DUKES MD Ot Z96.653 PRESENCE OF ARTIFICIAL KNEE JOINT, BILAT 04/28/2017 LINDEN MAX MD Ot J11.1 FLU DUE TO UNIDENTIFIED INFLUENZA VIRUS 04/28/2017 LINDEN MAX MD Ot J20.9 ACUTE BRONCHITIS, UNSPECIFIED 04/28/2017 LINDEN MAX MD Ot M19.90 UNSPECIFIED OSTEOARTHRITIS, UNSPECIFIED 04/28/2017 LINDEN MAX MD Ot R06.02 SHORTNESS OF BREATH 04/28/2017 LINDEN MAX MD Ot 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 04/28/2017 LINDEN MAX MD Ot Z87.891 PERSONAL HISTORY OF NICOTINE DEPENDENCE 04/28/2017 LINDEN MAX MD, Ot Z88.0 ALLERGY STATUS TO PENICILLIN Procedures Code Description Performed By Performed On 80.96 03/20/2010 37.22 03/21/2010 88.53 03/21/2010 88.56 03/21/2010 90076 MAMMOGRAM, SCREENING 10/09/2012 Physical Physical Therapy, [facility] 12/18/2012 20819 MRI EXTREMITY JOINT, UPPER LEFT, W/O CONTRAST 04/15/2013 17259 [facility] 06/30/2013 57395 XRAY SHOULDER LEFT COMP 2 VIEWS 07/08/2013 41052 JOINT INJECTION- INTERMEDIATE JOINT 07/09/2013 79317 [facility] 02/12/2014 86298 [facility] 02/20/2014 [id number] EXCISION OF STOMACH, PERCUTANEOUS ENDOSC 12/16/2014 Results [...] 04/22/17 06:20 BNP level 183.7 pg/mL <100.0 Influenza virus A and B antigen detection - 04/23/17 21:30 FLU RESULT NEGATIVE FOR INFLUENZA A AND B ANTIGENS BY [facility] Complete blood count (CBC) with automated white blood cell (WBC) differential - 04/24/17 05:09 Blood leukocytes automated count (number/volume) 7.9 10*3/uL 4.3-11.0 Blood erythrocytes automated count (number/volume) 4.03 10*6/uL 4.35-5.85 Venous blood hemoglobin measurement (mass/volume) 12.1 g/dL 11.5-16.0 Blood hematocrit (volume fraction) 36 % 35-52 Automated erythrocyte mean corpuscular volume 89 [foz_us] 80-99 Automated erythrocyte mean corpuscular hemoglobin (mass per erythrocyte) 30 pg 25-34 Automated erythrocyte mean corpuscular hemoglobin concentration measurement ( mass/volume) 34 g/dL 32-36 Automated erythrocyte distribution width ratio 13.0 % 10.0-14.5 Automated blood platelet count (count/volume) 109 10*3/uL 130-400 Automated blood platelet mean volume measurement 10.8 [foz_us] 7.4-10.4 Automated blood neutrophils/100 leukocytes 67 % 42-75 Automated blood lymphocytes/100 leukocytes 25 % 12-44 Blood monocytes/100 leukocytes 7 % 0-12 Automated blood eosinophils/100 leukocytes 0 % 0-10 Automated blood basophils/100 leukocytes 0 % 0-10 Blood neutrophils automated count (number/volume) 5.4 10*3 1.8-7.8 Blood lymphocytes automated count (number/volume) 2.0 10*3 1.0-4.0 Blood monocytes automated count (number/volume) 0.6 10*3 0.0-1.0 Automated eosinophil count 0.0 10*3/uL 0.0-0.3 Automated blood basophil count (count/volume) 0.0 10*3/uL 0.0-0.1 Comprehensive metabolic panel - 04/24/17 05:09 Serum or plasma sodium measurement (moles/volume) 138 mmol/L 135-145 Serum or plasma potassium measurement (moles/volume) 3.1 mmol/L 3.6-5.0 Serum or plasma chloride measurement (moles/volume) 104 mmol/L 98-107 Carbon dioxide 23 mmol/L 21-32 Serum or plasma anion gap determination (moles/volume) 11 mmol/L 5-14 Serum or plasma urea nitrogen measurement (mass/volume) 13 mg/dL 7-18 Serum or plasma creatinine measurement (mass/volume) 0.68 mg/dL 0.60-1.30 Serum or plasma urea nitrogen/creatinine mass ratio 19 NRG Serum or plasma creatinine measurement with calculation of estimated glomerular filtration rate > NRG Serum or plasma glucose measurement (mass/volume) 161 mg/dL 70-105 Serum or plasma calcium measurement (mass/volume) 8.1 mg/dL 8.5-10.1 Serum or plasma total bilirubin measurement (mass/volume) 0.9 mg/dL 0.1-1.0 Serum or plasma alkaline phosphatase measurement (enzymatic activity/volume) 84 U/L 40-136 Serum or plasma aspartate aminotransferase measurement (enzymatic activity/ volume) 33 U/L 5-34 Serum or plasma alanine aminotransferase measurement (enzymatic activity/volume ) 18 U/L 0-55 Serum or plasma protein measurement (mass/volume) 6.4 g/dL 6.4-8.2 Serum or plasma albumin measurement (mass/volume) 3.6 g/dL 3.2-4.5 Encounters ACCT No. Visit Date/Time Discharge Status Pt. Type Provider Facility Loc./Unit Complaint [id number] 05/12/2014 15:52:00 05/12/2014 23:59:59 [facility] Outpatient SHARDA ASCENCIO APRN [id number] 02/20/2014 12:28:00 02/20/2014 23:59:59 [facility] Outpatient SHARDA ASCENCIO APRN [id number] 02/12/2014 08:00:00 02/12/2014 23:59:59 CLS Outpatient SONU BUTLER SHARDA Coronado [id number] 11/03/2013 13:31:00 11/03/2013 23:59:59 CLS Outpatient KEN ASCENCIO APRNCHARITO Coronado [id number] 07/23/2013 15:58:00 07/23/2013 23:59:59 CLS Outpatient JAM DEL REAL DO Joselyn [id number] 07/09/2013 16:12:00 07/09/2013 23:59:59 CLS Outpatient JAM DEL REAL DO Joselyn [id number] 04/15/2013 15:37:00 04/15/2013 23:59:59 CLS Outpatient JORDY MAGAÑA MD [id number] 12/18/2012 16:46:00 12/18/2012 23:59:59 CLS Outpatient JORDY MAGAÑA MD [id number] 10/09/2012 15:53:00 10/09/2012 23:59:59 CLS Outpatient JORDY MAGAÑA MD [id number] 09/23/2014 03:52:55 ACT Document Registration [id number] 04/23/2017 14:20:00 04/25/2017 11:15:00 DIS Outpatient JESSICA DUKES MD [facility] 4TH DEHYDRATION AND BRONCHITIS [id number] 04/22/2017 05:59:00 04/22/2017 07:31:00 DIS Emergency LINDEN MAX MD [facility] ER FEVER 102 SOB [id number] 06/28/2015 08:12:00 06/28/2015 23:59:59 CLS Outpatient JESSICA DUKES MD [facility] RAD BILAT BREAST NODULE [id number] 05/25/2015 15:08:00 05/25/2015 23:59:59 CLS Outpatient JESSICA DUKES MD [facility] RAD SCREENING [id number] 05/25/2015 06:38:00 05/25/2015 23:59:59 CLS Outpatient JESSICA DUKES MD [facility] LAB FATIGUE,MALAISE,ALOPECIA [id number] 12/16/2014 07:25:00 12/18/2014 12:50:00 DIS Inpatient BALBIR BONILLA MD [facility] 4TH MORBID OBESITY [id number] 12/08/2014 09:56:00 12/08/2014 23:59:59 CLS Outpatient BALBIR BONILLA MD [facility] PREOP MORBID OBESITY [id number] 09/22/2014 14:41:00 09/22/2014 23:59:59 CLS Outpatient CASH KIRBY [facility] QUICK [id number] 09/01/2014 08:41:00 09/01/2014 23:59:59 CLS Outpatient BALBIR BONILLA MD [facility] RAD REFLUX,T CHOL [id number] 03/24/2014 11:23:00 04/12/2014 11:08:00 DIS Outpatient SEJAL THOMSON [facility] REHAB L SHOULDER SCOPE BICEP TENOTOMY CHONDROPLASTY [id number] 03/03/2014 08:36:00 03/03/2014 14:45:00 DIS [facility] ROTATOR CUFF [id number] 03/01/2014 14:33:00 03/01/2014 23:59:59 CLS Outpatient IBIS CAPPS MD [facility] PREOP LEFT SHOULDER TORN ROTATOR CUFF [id number] 02/20/2013 15:56:00 02/26/2013 16:52:00 DIS Outpatient JORDY MAGAÑA MD [facility] REHAB L SHOULDER PAIN [id number] 10/13/2012 06:52:00 10/13/2012 23:59:59 CLS Outpatient JORDY MAGAÑA MD [facility] LAB EDEMA,HYPERTENSION [id number] 08/06/2012 11:19:00 08/06/2012 23:59:59 CLS Outpatient [id number] 07/28/2014 16:43:00 Document Registration [id number] 07/28/2014 16:42:00 Document Registration [id number] 07/28/2014 16:42:00 Document Registration [id number] 07/28/2014 16:42:00 Document Registration [id number] 07/28/2014 16:42:00 Document Registration [id number] 12/18/2011 16:11:00 Document Registration [id number] 05/25/2011 06:47:00 Document Registration [id number] 07/26/2010 09:44:00 Document Registration [id number] 03/20/2010 09:40:00 Document Registration [id number] 03/17/2010 10:22:00 Document Registration [id number] 03/03/2010 11:02:00 Document Registration [id number] 11/25/2009 09:47:00 Document Registration [id number] 08/30/2009 11:55:00 Document Registration [id number] 02/21/2009 15:56:00 Document Registration 09/19/09 11/18/2017 15:56:09 ACT Outpatient
[2017-11-19] MEDS ORDERED: NS IV 1000 ML 1,000 ML IV SCH (13:01)
--- NOTE | 2017-11-19 13:08 | ED Abdominal Pain ---
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 She has occasional nausea without vomiting. She's not having any nausea presently. She' s felt flush but no objective fevers. She has not taken anything for the pain. She has a history of gallbladder removal by Dr. Franklin and sleeve gastrectomy by Dr. Red. She is having normal bowel movements without any blood in the stool or urine. No dysuria discharge or dyspareunia. No recent history of trauma. She has had a colonoscopy 6 years ago and some polyps were found that she was told to follow-up in 10 years. She does not know if she has a history of diverticula. Allergies and Home Medications Allergies Coded Allergies: Penicillins (Verified Allergy, Unknown, 04/22/17) Home Medications Baclofen 20 Mg Tablet, 20 MG PO Q8H PRN for MUSCLE SPASMS, (Reported) Cefdinir 300 Mg Capsule, 300 MG PO BID Prescribed by: JESSICA DUKES on 04/25/17 0742 Diphenhydramine HCl 25 Mg Capsule, 50 MG PO HS PRN for RASH, (Reported) Furosemide 40 Mg Tablet, 80 MG PO DAILY, (Reported) TAKES 2 (40 MG) TABLETS Hydrocodone/Acetaminophen 1 Each Tablet, 1 TAB PO Q6H PRN for PAIN-SEVERE, ( Reported) FOR SEVERE JOINT PAIN Levalbuterol HCl 1.25 Mg/3 Ml Vial.neb, 1.25 MG INH RTQ8HR Prescribed by: JESSICA DUKES on 04/25/17 0742 Ondansetron HCl 4 Mg Tablet, 4 MG PO Q4H PRN for NAUSEA/VOMITING-1ST LINE, ( Reported) Potassium Chloride 20 Meq Tab.er.prt, 40 MEQ PO DAILY, (Reported) TAKES 2 (20 MEQ) TABLETS Prednisone 20 Mg Tab, 20 MG PO UD Prescribed by: JESSICA DUKES on 04/25/17 0742 Ropinirole HCl 2 Mg Tablet, 2 MG PO HS, (Reported) Patient Home Medication List Home Medication List Reviewed: Yes Review of Systems Review of Systems Constitutional: chills; No fever, No malaise EENTM: No Blurred Vision, No Double Vision Respiratory: Denies Cough, Denies Shortness of Air Cardiovascular: Denies Chest Pain; Edema (Chronic gravuty) Gastrointestinal: Denies Constipated, Denies Diarrhea Genitourinary: Denies Burning, Denies Discharge, Denies Frequency, Denies Hematuria Musculoskeletal: No back pain, No joint pain Skin: No pruritus, No rash Psychiatric/Neurological: Denies Headache, Denies Numbness, Denies Paresthesia Past Pozlbdh-Duyuam-Zozmcv Hx Patient Social History Alcohol Use: Denies Use Recreational Drug Use: No Smoking Status: Former Smoker Type Used: Cigarettes Former Smoker, Quit: Apr 11, 2007 Recent Hopitalizations: No Immunizations Up To Date PED Vaccines UTD: Yes Date of Influenza Vaccine: Nov 16, 2016 Seasonal Allergies Seasonal Allergies: Yes Past Medical History Surgeries: Yes ( BILAT THR, BILAT TKR, left shoulder, ) Respiratory: No Cardiac: No Neurological: Yes (Restless leg syndrome) Reproductive Disorders: No Sexually Transmitted Disease: No Gastrointestinal: No Musculoskeletal: Yes Arthritis Endocrine: No HEENT: No Cancer: No Psychosocial: No Integumentary: No Blood Disorders: No Family Medical History Arthritis 19 MOTHER Cataracts 19 MOTHER G8 BROTHER Diabetes mellitus 19 MOTHER Physical Exam Vital Signs Vital Signs - First Documented 11/19/17 13:16 Temp 97.0 Pulse 100 Resp 18 B/P (MAP) 154/98 (116) Pulse Ox 99 Capillary Refill : Height/Weight/BMI Height: 5'4.00" Weight: 287lbs. 0.0oz. 130.315774oc; 49.3 BMI Method:Stated General Appearance: WD/WN, obese HEENT: PERRL/EOMI, normal ENT inspection, pharynx normal Neck: non-tender, full range of motion, normal inspection Respiratory: chest non-tender, lungs clear, normal breath sounds, no respiratory distress, no accessory muscle use Cardiovascular: normal peripheral pulses, regular rate, rhythm Peripheral Pulses: 2+ Dorsalis Pedis (R), 2+ Left Dors-Pedis (L) Gastrointestinal: normal bowel sounds, soft, no organomegaly; No distended, No rebound; tenderness (over McBurney's point) Extremities: normal range of motion, normal capillary refill Neurologic/Psychiatric: alert, normal mood/affect, oriented x 3 Skin: normal color, warm/dry, other (old laparoscopic surgical scar on the abdomen) Progress/Results/Core Measures Results/Orders Lab Results Laboratory Tests Test 11/19/17 13:05 Range/Units White Blood Count 7.5 4.3-11.0 10^3/uL Red Blood Count 4.85 4.35-5.85 10^6/uL Hemoglobin 14.4 11.5-16.0 G/DL Hematocrit 42 35-52 % Mean Corpuscular Volume 87 80-99 FL Mean Corpuscular Hemoglobin 30 25-34 PG Mean Corpuscular Hemoglobin Concent 34 32-36 G/DL Red Cell Distribution Width 13.4 10.0-14.5 % Platelet Count 181 130-400 10^3/uL Mean Platelet Volume 10.8 H 7.4-10.4 FL Neutrophils (%) (Auto) 68 42-75 % Lymphocytes (%) (Auto) 23 12-44 % Monocytes (%) (Auto) 7 0-12 % Eosinophils (%) (Auto) 3 0-10 % Basophils (%) (Auto) 0 0-10 % Neutrophils # (Auto) 5.1 1.8-7.8 X 10^3 Lymphocytes # (Auto) 1.7 1.0-4.0 X 10^3 Monocytes # (Auto) 0.5 0.0-1.0 X 10^3 Eosinophils # (Auto) 0.2 0.0-0.3 10^3/uL Basophils # (Auto) 0.0 0.0-0.1 10^3/uL Urine Color YELLOW Urine Clarity CLEAR Urine pH 7 5-9 Urine Specific Heaters 1.010 L 1.016-1.022 Urine Protein NEGATIVE NEGATIVE Urine Glucose (UA) NEGATIVE NEGATIVE Urine Ketones NEGATIVE NEGATIVE Urine Nitrite NEGATIVE NEGATIVE Urine Bilirubin NEGATIVE NEGATIVE Urine Urobilinogen NORMAL NORMAL MG/DL Urine Leukocyte Esterase 3+ H NEGATIVE Urine RBC (Auto) NEGATIVE NEGATIVE Urine RBC RARE /HPF Urine WBC 10-25 H /HPF Urine Squamous Epithelial Cells 5-10 /HPF Urine Crystals NONE /LPF Urine Bacteria FEW H /HPF Urine Casts NONE /LPF Urine Mucus NEGATIVE /LPF Urine Culture Indicated YES Sodium Level 142 135-145 MMOL/L Potassium Level 4.0 3.6-5.0 MMOL/L Chloride Level 106 98-107 MMOL/L Carbon Dioxide Level 29 21-32 MMOL/L Anion Gap 7 5-14 MMOL/L Blood Urea Nitrogen 16 7-18 MG/DL Creatinine 0.75 0.60-1.30 MG/DL Estimat Glomerular Filtration Rate > 60 BUN/Creatinine Ratio 21 Glucose Level 102 70-105 MG/DL Calcium Level 9.4 8.5-10.1 MG/DL Corrected Calcium 8.5-10.1 MG/DL Magnesium Level 2.4 1.8-2.4 MG/DL Total Bilirubin 0.7 0.1-1.0 MG/DL Aspartate Amino Transf (AST/SGOT) 25 5-34 U/L Alanine Aminotransferase (ALT/SGPT) 13 0-55 U/L Alkaline Phosphatase 87 40-136 U/L C-Reactive Protein High Sensitivity 0.35 0.00-0.50 MG/DL Total Protein 7.6 6.4-8.2 GM/DL Albumin 4.6 H 3.2-4.5 GM/DL My Orders Orders - LINDEN MAX Ct Abd/Pelv W (Appendicitis) (11/19/17 13:01) Saline Lock/Iv-Start (11/19/17 13:01) Cbc With Automated Diff (11/19/17 13:01) Comprehensive Metabolic Panel (11/19/17 13:01) Hs C Reactive Protein (11/19/17 13:01) Magnesium (11/19/17 13:01) Ua Culture If Indicated (11/19/17 13:01) Saline Lock/Iv-Start (11/19/17 13:01) Ns Iv 1000 Ml (Sodium Chloride 0.9%) (11/19/17 13:01) Ketorolac Injection (Toradol Injection) (11/19/17 13:15) Urine Culture (11/19/17 13:05) Iohexol Injection (Omnipaque 350 Mg/Ml 1 (11/19/17 13:45) Ns (Ivpb) (Sodium Chloride 0.9%) (11/19/17 13:45) Medications Given in ED Current Medications Medications Dose Ordered Sig/Sandy Route Start Time Stop Time Status Last Admin Dose Admin Iohexol 100 ml ONCE ONCE IV 11/19/17 13:45 11/19/17 13:48 DC 11/19/17 13:57 100 ML Ketorolac Tromethamine 15 mg ONCE ONCE IVP 11/19/17 13:15 11/19/17 13:16 DC 11/19/17 13:38 15 MG Sodium Chloride 250 ml ONCE ONCE IV 11/19/17 13:45 11/19/17 13:48 DC 11/19/17 13:57 80 ML Vital Signs/I&O 11/19/17 13:16 Temp 97.0 Pulse 100 Resp 18 B/P (MAP) 154/98 (116) Pulse Ox 99 Progress Progress Note : Time: 13:06 Progress Note The patient is a mild tachycardia the 103 but no fever, dyspnea or other evidence to suggest sepsis. She does have reproducible right lower quadrant pain without rebound over the McBurney's point. Get a CT give her some fluids to flush the contrast out and obtain some labs. At this point she is in only mild distress and has agreed to Toradol. She's not needing anything for nausea. Diverticulitis versus colitis/enteritis versus appendicitis versus much less likely ovarian. Diagnostic Imaging Diagonstic Imaging: CT (with contrast) Plain Films/CT/US/NM/MRI: abdomen, pelvis Comments VIA [facility]. [place], [place] NAME: CHRISTINE ANNE [facility] REC#: [id number] PT STATUS: REG ER : 1960 PHYSICIAN: LINDEN MAX MD ADMIT DATE: 11/19/17/ER Draft Date of Exam:11/19/17 CT ABD/PELV W (APPENDICITIS) PROCEDURE: CT abdomen and pelvis with contrast, rule out appendicitis. TECHNIQUE: Multiple contiguous axial images were obtained through the abdomen and pelvis after the administration of intravenous contrast. INDICATION: Right-sided pain. The air-containing appendix well-visualized and normal. There is no hydronephrosis. Low-density small renal nodules bilaterally are believed to be small cysts. Liver, spleen, adrenals and pancreas unremarkable. There is no ascites, abscess, hematoma or other fluid collection. The uterus and adnexa unremarkable. The urinary bladder unremarkable. Postsurgical changes in the stomach present. No evidence for ileus or obstruction. The hips are replaced. No acute bony abnormality. IMPRESSION: Normal appendix. Unobstructed Urinary tracts. No acute appearing abdominal pelvic abnormalities. Dictated on workstation # [id number] Dict: 11/19/17 1412 Trans: 11/19/17 1418 [facility] [id number] Interpreted by: MILLIE LOPEZ Electronically signed by: Reviewed: Reviewed by Me Departure Impression Primary Impression: Urinary tract infection Qualified Codes: N30.00 - Acute cystitis without hematuria Disposition: HOME, SELF-CARE Condition: Stable Departure-Patient Inst. Decision time for Depature: 14:58 Referrals: JESSICA DUKES MD (PCP/Family) Primary Care Physician Patient Instructions: Urinary Tract Infection, Adult (DC) Add. Discharge Instructions: Drink lots of fluids and take the antibiotics twice a day for the next week. Follow-up with her primary care doctor if your symptoms do not improve in 3-4 days. Work/School Note: Work Release Form Date Seen in the Emergency Department: Nov 19, 2017 Return to Work: Nov 19, 2017 Restrictions: No Restrictions LINDEN MAX Nov 19, 2017 13:08
[2017-11-19] MEDS ORDERED: KETOROLAC 30 MG/ML VIAL IVP ONE (13:15)
[2017-11-19 13:21] LABS: BASOPHILS % (AUTO) 0 % (0-10); BILIRUBIN,URINE NEGATIVE (NEGATIVE); CLARITY,URINE CLEAR; COLOR,URINE YELLOW; EOSINOPHILS # (AUTO) 0.2 10^3/uL (0.0-0.3); EOSINOPHILS % (AUTO) 3 % (0-10); GLUCOSE, URINE (UA) NEGATIVE (NEGATIVE); HEMATOCRIT 42 % (35-52); HEMOGLOBIN 14.4 G/DL (11.5-16.0); KETONES,URINE NEGATIVE (NEGATIVE); LEUKOCYTE ESTERASE ,URINE 3+ (NEGATIVE); LYMPHOCYTES # (AUTO) 1.7 X 10^3 (1.0-4.0); LYMPHOCYTES % (AUTO) 23 % (12-44); MEAN CORPUSCULAR HEMOGLOBIN 30 PG (25-34); MEAN CORPUSCULAR HGB CONC 34 G/DL (32-36); MEAN CORPUSCULAR VOLUME 87 FL (80-99); MEAN PLATELET VOLUME 10.8 FL (7.4-10.4); MONOCYTES # (AUTO) 0.5 X 10^3 (0.0-1.0); MONOCYTES % (AUTO) 7 % (0-12); NEUTROPHILS # (AUTO) 5.1 X 10^3 (1.8-7.8); NEUTROPHILS % (AUTO) 68 % (42-75); NITRITE,URINE NEGATIVE (NEGATIVE); PH,URINE 7 (5-9); PLATELET COUNT 181 10^3/uL (130-400); PROTEIN,URINE NEGATIVE (NEGATIVE); RED BLOOD COUNT 4.85 10^6/uL (4.35-5.85); RED CELL DISTRIBUTION WIDTH 13.4 % (10.0-14.5); UROBILINOGEN,URINE NORMAL (NORMAL); WHITE BLOOD COUNT 7.5 10^3/uL (4.3-11.0)
[2017-11-19 13:33] LABS: RBC,URINE RARE /HPF
[2017-11-19 13:34] LABS: BACTERIA,URINE FEW /HPF
[2017-11-19 13:39] LABS: ALANINE AMINOTRANSFERASE 13 U/L (0-55); ALBUMIN 4.6 GM/DL (3.2-4.5); ALKALINE PHOSPHATASE 87 U/L (40-136); BILIRUBIN,TOTAL 0.7 MG/DL (0.1-1.0); BUN/CREATININE RATIO 21; CALCIUM 9.4 MG/DL (8.5-10.1); CARBON DIOXIDE 29 MMOL/L (21-32); CHLORIDE 106 MMOL/L (98-107); CREATININE SERUM 0.75 MG/DL (0.60-1.30); GFR ESTIMATED > 60; GLUCOSE 102 MG/DL (70-105); MAGNESIUM 2.4 MG/DL (1.8-2.4); SODIUM 142 MMOL/L (135-145); TOTAL PROTEIN 7.6 GM/DL (6.4-8.2)
[2017-11-19] MEDS ORDERED: IOHEXOL 350 MG/ML 100 ML (OMNIPAQUE 350) VIAL IV ONE (13:45)
[2017-11-19] MEDS ORDERED: NS 250 ML (IVPB) BAG IV ONE (13:45)
--- NOTE | 2017-11-19 14:19 | Diagnostic Imaging Report ---
PROCEDURE: CT abdomen and pelvis with contrast, rule out appendicitis. TECHNIQUE: Multiple contiguous axial images were obtained through the abdomen and pelvis after the administration of intravenous contrast. INDICATION: Right-sided pain. The air-containing appendix well-visualized and normal. There is no hydronephrosis. Low-density small renal nodules bilaterally are believed to be small cysts. Liver, spleen, adrenals and pancreas unremarkable. There is no ascites, abscess, hematoma or other fluid collection. The uterus and adnexa unremarkable. The urinary bladder unremarkable. Postsurgical changes in the stomach present. No evidence for ileus or obstruction. The hips are replaced. No acute bony abnormality. IMPRESSION: Normal appendix. Unobstructed Urinary tracts. No acute appearing abdominal pelvic abnormalities. Dictated by: Dictated on workstation # [id number]
[2017-11-19] MEDS ORDERED: NITROFURANTOIN 100 MG (MACROBID) CAPSULE PO ONE (15:15)
[2017-11-19] MEDS ORDERED: NITR100C PO (15:18)
[2017-11-19 15:30] VITALS: BP 118/90
== END 2017-11-19 15:32 | disposition home or self-care (01) ==
LOC: EDUNIT# 12:49 → ER 12:50
DX: N39.0 Urinary tract infection, site not specified (principal); G25.81 Restless legs syndrome; Z79.52 Long term (current) use of systemic steroids; Z88.0 Allergy status to penicillin; Z90.49 Acquired absence of other specified parts of digestive tract; Z98.84 Bariatric surgery status; Z86.010 Personal history of colon polyps; Z87.891 Personal history of nicotine dependence; Z96.643 Presence of artificial hip joint, bilateral; Z96.653 Presence of artificial knee joint, bilateral
CPT/HCPCS: 36415; 74177; 80053; 81000; 83735; 85025; 86141; 87088

== ENCOUNTER → 2017-11-28 | Outpatient (CLI) | payer OTHER ==
[~2017-11-28] MED LIST changes: +NITR100C PO
--- NOTE | 2017-11-28 20:07 | Diagnostic Imaging Report ---
INDICATION: Low back pain. FINDINGS: There is mild dextroscoliosis. Lateral view demonstrates unremarkable alignment. The vertebral body heights appear maintained. There are multilevel degenerative endplate changes. There is advanced lower lumbar facet arthropathy at L4-5 and L5-S1. Most significant disc space height loss appears to be at the L5-S1 level. The patient is status post previous bilateral hip arthroplasty. There is no acute pelvic abnormality. IMPRESSION: 1. Multilevel lumbar degenerative disc disease and facet arthropathy, most advanced at the L5-S1 level. There is a mild dextroscoliosis. The vertebral body heights appear maintained, and lateral alignment appears normal. Dictated by: Dictated on workstation # [id number]
== END ==
LOC: RAD 19:10
PROVIDERS: ATTEND Family Medicine
DX: M51.37 Other intervertebral disc degeneration, lumbosacral region (principal); M46.87 Other specified inflammatory spondylopathies, lumbosacral region; M41.86 Other forms of scoliosis, lumbar region
CPT/HCPCS: 72100

== ENCOUNTER → 2018-07-23 | Outpatient (CLI) | payer OTHER ==
[~2018-07-23] MED LIST changes: -LEVA1.2516 INH; +LEVA1.2543 INH
[2018-07-23 08:53] LABS: BASOPHILS % (AUTO) 0 % (0-10); EOSINOPHILS # (AUTO) 0.2 10^3/uL (0.0-0.3); EOSINOPHILS % (AUTO) 5 % (0-10); HEMATOCRIT 41 % (35-52); HEMOGLOBIN 13.9 G/DL (11.5-16.0); LYMPHOCYTES # (AUTO) 1.6 X 10^3 (1.0-4.0); LYMPHOCYTES % (AUTO) 34 % (12-44); MEAN CORPUSCULAR HEMOGLOBIN 29 PG (25-34); MEAN CORPUSCULAR HGB CONC 34 G/DL (32-36); MEAN CORPUSCULAR VOLUME 87 FL (80-99); MEAN PLATELET VOLUME 11.3 FL (7.4-10.4); MONOCYTES # (AUTO) 0.3 X 10^3 (0.0-1.0); MONOCYTES % (AUTO) 7 % (0-12); NEUTROPHILS # (AUTO) 2.5 X 10^3 (1.8-7.8); NEUTROPHILS % (AUTO) 54 % (42-75); PLATELET COUNT 149 10^3/uL (130-400); RED CELL DISTRIBUTION WIDTH 13.5 % (10.0-14.5); WHITE BLOOD COUNT 4.6 10^3/uL (4.3-11.0)
[2018-07-23 09:20] LABS: ALANINE AMINOTRANSFERASE 11 U/L (0-55); ALBUMIN 4.1 GM/DL (3.2-4.5); ALKALINE PHOSPHATASE 84 U/L (40-136); BILIRUBIN,TOTAL 0.9 MG/DL (0.1-1.0); BUN/CREATININE RATIO 24; CALCIUM 9.2 MG/DL (8.5-10.1); CARBON DIOXIDE 26 MMOL/L (21-32); CHLORIDE 108 MMOL/L (98-107); CHOLESTEROL 174 MG/DL (< 200); CREATININE SERUM 0.72 MG/DL (0.60-1.30); GFR ESTIMATED > 60; GLUCOSE 118 MG/DL (70-105); HDL CHOLESTEROL 54 MG/DL (40-60); POTASSIUM 3.8 MMOL/L (3.6-5.0); SODIUM 145 MMOL/L (135-145); TOTAL PROTEIN 6.7 GM/DL (6.4-8.2); TRIGLYCERIDES 101 MG/DL (<150); VLDL CHOLESTEROL 20 MG/DL (5-40)
--- NOTE | 2018-07-23 12:05 | Diagnostic Imaging Report ---
INDICATION: Routine screening. COMPARISON: 05/25/2015. TECHNIQUE: 2D and 3D bilateral screening mammography was performed with CAD. FINDINGS: Both breasts are primarily involutional. Intraparenchymal lymph nodes in the upper outer aspects of both breasts appear stable. No new mass or malignant appearing microcalcifications are seen. The axillae are unremarkable. IMPRESSION: No mammographic features suspicious for malignancy are identified. ACR BI-RADS Category 2: Benign findings. Result letter will be mailed to the patient. Note: At least 10% of breast cancer is not imaged by mammography. Dictated by: Dictated on workstation # [id number]
== END ==
LOC: RAD 08:36
PROVIDERS: ATTEND Family Medicine
DX: Z12.31 Encounter for screening mammogram for malignant neoplasm of breast (principal); Z00.00 Encounter for general adult medical examination without abnormal findings
CPT/HCPCS: 36415; 77067; 80053; 80061; 84443; 85025

== ENCOUNTER → 2019-04-20 | Outpatient (CLI) | payer OTHER ==
[~2019-04-20] MED LIST changes: +DIPH25CA48 PO; -DIPH25CA6 PO; +ONDA-105 PO; -ONDA4TAB10 PO; -ROPI2TAB4 PO; +ROPI2TAB6 PO
--- NOTE | 2019-04-20 18:19 | Diagnostic Imaging Report ---
EXAMINATION: Left foot radiographs, 3 views. COMPARISON: None. HISTORY: 58-year-old female, left foot pain in the region of the fifth metatarsal. FINDINGS: There is a transversely oriented lucency in the proximal diaphysis of the fifth metatarsal consistent with a fracture. This may be stress related. 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 There is mild midfoot degenerative type enthesopathy dorsally. There is a calcaneal heel spur. There is no radiopaque foreign body. IMPRESSION: 1. Nondisplaced transversely oriented lucency in the proximal diaphysis of the fifth metatarsal consistent with a fracture. This may be stress related. Dictated by: Dictated on workstation # [id number]
== END ==
LOC: RAD 11:18
PROVIDERS: ATTEND Family Medicine
DX: M79.672 Pain in left foot (principal)
CPT/HCPCS: 73630

== ENCOUNTER 2019-05-14 11:32 | Outpatient (CLI) | payer OTHER ==
[~2019-05-14] VITALS: Ht 165.1 cm; Wt 117.3 kg
[~2019-05-14 11:32] MED LIST changes: +ACHYD1T PO; -HYDR-3820 PO
[2019-05-14] MEDS ORDERED: ROPI4TAB5 PO (14:33)
== END 2019-05-14 14:53 | disposition home or self-care (01) ==
LOC: PREOP 11:32
PROVIDERS: ATTEND Orthopaedic Surgery
DX: Z01.818 Encounter for other preprocedural examination (principal)

== ENCOUNTER 2019-05-20 06:49 | Day surgery (SDC) | payer OTHER ==
--- NOTE | 2019-05-14 12:06 | HISTORY AND PHYSICAL ---
DATE OF SERVICE: 05/20/2019 DATE OF ADMISSION: 05/20/2019. This will be for outpatient surgery on 05/20/2019 for left foot fracture. HISTORY OF PRESENT ILLNESS: The patient is a 59-year-old female who originally sustained a left foot injury approximately 5 weeks ago. She was found to have a Miller type fracture. This has gone on to nonunion and becoming increasingly more painful. She reports pain with activities. She has altered her ambulation without relief. REVIEW OF SYSTEMS: No chest pain, no shortness of breath, no dysuria. RADIOGRAPHS: Reveal a fracture, Miller type of the fifth metatarsal base. PAST MEDICAL HISTORY: Bilateral knees, bilateral hips, cholecystectomy, hypertension. PAST SURGICAL HISTORY: Bilateral knee and bilateral hip replacements, cholecystectomy. FAMILY HISTORY: Noncontributory. PRIMARY CARE PROVIDER: Dr. Doherty. MEDICATIONS: Potassium, Lasix, [place], Requip, baclofen. ALLERGIES: PENICILLIN. SOCIAL HISTORY: The patient denies alcohol, tobacco use. PHYSICAL EXAMINATION: GENERAL: The patient is well-developed, well-nourished, in no acute distress. HEENT: Normocephalic, atraumatic. Pupils equal, round, reactive to light. Oropharynx is clear. NECK: Supple, no lymphadenopathy. LUNGS: Clear to auscultation bilaterally. HEART: Regular rate and rhythm. ABDOMEN: Soft, nontender, nondistended. EXTREMITIES: The patient is tender over her fifth metatarsal, left foot. There is mild edema. She has intact dorsiflexion, plantarflexion of the toes. Sensation is intact throughout. She is nontender over the medial hindfoot, midfoot and forefoot. IMPRESSION: Left foot fifth metatarsal fracture (Miller type). PLAN: Open reduction and internal fixation, left fifth metatarsal. The risks, benefits, options, ramifications and recovery were discussed at length with the patient. She understands and wishes to proceed. Job ID: [id number] DocumentID: [id number] Dictated Date: 05/14/2019 11:22:49 Bell Spinner Date: 05/14/2019 12:06:25 Dictated By: IBIS CAPPS MD
[2019-05-20] VITALS (12 sets, daily range): BP systolic 100–145; BP diastolic 61–89
[~2019-05-20] VITALS: Ht 165.2 cm; Wt 117.3 kg
[~2019-05-20 06:49] MED LIST changes: +ROPI4TAB5 PO; +oxyCODONE/APAP 5/325MG (PERCOCET 5) TABLET PO PRN
--- OUTSIDE RECORDS SUMMARY | 2019-05-20 06:52 | XMS REPORT ---
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 59181955 Problem Edema 782.3 Active 956880626 Problem Pain in joint, shoulder region 719.41 Active 509851310 Problem Lumbago 724.2 Active 409107088 Problem Anxiety state, unspecified 300.00 Act ahmet [id number] ALLERGIES No Information ENCOUNTERS Encounter Location Date Diagnosis [facility] [address] [address] June, [facility] [address] [address] June, [facility] [address] [address] 29 May, 2014 [facility] [address] [address] May, Obesity 278.00 and Lumbago 724.2 [facility] [address] [address] May, [facility] [address] [address] May, [facility] [address] [address] Apr, [facility] [address] [address] Apr, [facility] [address] [id number] [place] [address] 18 Apr, 2014 [facility] [place] [facility] [address] [id number] [place] [address] Apr, [facility] [place] [facility] [address] [id number] [place] [address] Apr, [facility] [place] [facility] [address] [id number] [place] [address] Apr, [facility] [place] [facility] [address] [id number] [place] [address] Mar, [facility] [place] [facility] [address] [id number] [place] [address] Mar, [facility] [place] [facility] [address] [id number] [place] [address] Mar, [facility] [place] [facility] [address] [id number] [place] [address] Mar, [facility] [place] [facility] [address] [id number] [place] [address] Mar, [facility] [place] [facility] [address] [id number] [place] [address] Mar, [facility] [place] [facility] [address] [id number] [place] [address] Feb, [facility] [place] [facility] [address] [id number] [place] [address] Feb, [facility] [place] [facility] [address] [id number] [place] [address] Feb, [facility] [place] [facility] [address] [id number] [place] [address] Feb, [facility] [place] [facility] [address] [id number] [place] [address] Feb, [facility] [place] [facility] [address] [id number] [place] [address] Feb, [facility] [place] [facility] [address] [id number] [place] [address] Jan, [facility] [place] [facility] [address] [id number] [place] [address] Jan, [facility] [place] [facility] [address] [id number] [place] [address] Jan, [facility] [place] [facility] [address] [id number] [place] [address] Jan, [facility] [place] [facility] [address] [id number] [place] [address] Jan, [facility] [place] [facility] [address] [id number] [place] [address] Jan, [facility] [place] [facility] [address] [id number] [place] [address] Jan, [facility] [place] [facility] [address] [id number] [place] [address] Jan, [facility] [place] [facility] [address] [id number] [place] [address] Jan, [facility] [place] [facility] [address] [id number] [place] [address] Jan, [facility] [place] [facility] [address] [id number] [place] [address] Jan, [facility] [place] [facility] [address] [id number] [place] [address] Dec, [facility] [place] [facility] [address] [id number] [place] [address] Dec, [facility] [place] [facility] [address] [id number] [place] [address] Dec, [facility] [place] [facility] [address] [id number] [place] [address] Dec, [facility] [place] [facility] [address] [id number] [place] [address] Dec, [facility] [place] [facility] [address] [id number] [place] [address] Dec, [facility] [place] [facility] [address] [id number] [place] [address] Nov, [facility] [place] [facility] [address] [id number] [place] [address] Nov, [facility] [place] [facility] [address] [id number] [place] [address] Nov, [facility] [place] [facility] [address] [id number] [place] [address] Nov, [facility] [place] [facility] [address] [id number] [place] [address] Nov, [facility] [place] [facility] [address] [id number] [place] [address] Nov, [facility] [place] [facility] [address] [id number] [place] [address] Oct, [facility] [place] [facility] [address] [id number] [place] [address] Oct, [facility] [place] [facility] [address] [id number] [place] [address] Oct, [facility] [place] [facility] [address] [id number] [place] [address] Oct, [facility] [place] [facility] [address] [id number] [place] [address] Oct, [facility] [place] [facility] [address] [id number] [place] [address] Oct, [facility] [place] [facility] [address] [id number] [place] [address] Sep, [facility] [place] [facility] [address] [id number] [place] [address] Sep, [facility] [place] [facility] [address] [id number] [place] [address] Sep, [facility] [place] [facility] [address] [id number] [place] [address] Sep, [facility] [place] [facility] [address] [id number] [place] [address] Aug, [facility] [place] [facility] [address] [facility] [id number] [place] [address] Aug, [facility] [place] [facility] [address] [id number] [place] [address] Jul, [facility] [place] [facility] [address] [id number] [place] [address] Jul, [facility] [place] [facility] [address] [id number] [place] [address] Jul, [facility] [place] [facility] [address] [facility] [id number] [place] [address] Jul, [facility] [place] [facility] [address] [id number] [place] [address] Jul, [facility] [place] [facility] [address] [id number] [place] [address] Jul, [facility] [place] [facility] [address] [id number] [place] [address] June, [facility] [place] [facility] [address] [id number] [place] [address] June, [facility] [place] [facility] [address] [id number] [place] [address] June, [facility] [place] [facility] [address] [id number] [place] [address] June, [facility] [place] [facility] [address] [id number] [place] [address] June, [facility] [place] [facility] [address] [id number] [place] [address] June, [facility] [place] [facility] [address] [id number] [place] [address] June, [facility] [place] [facility] [address] [id number] [place] [address] June, [facility] [place] [facility] [address] [id number] [place] [address] June, [facility] [place] [facility] [address] [id number] [place] [address] June, [facility] [place] [facility] [address] [facility] [id number] [place] [address] June, [facility] [place] [facility] [address] [facility] [id number] [place] [address] June, [facility] [place] [facility] [address] [id number] [place] [address] June, [facility] [place] [facility] [address] [id number] [place] [address] June, [facility] [place] [facility] [address] [facility] [id number] [place] [address] June, [facility] [place] [facility] [address] [id number] [place] [address] June, [facility] [place] [facility] [address] [id number] [place] [address] May, [facility] [place] [facility] [address] [id number] [place] [address] May, [facility] [place] [facility] [address] [id number] [place] [address] May, [facility] [place] [facility] [address] [id number] [place] [address] May, [facility] [place] [facility] [address] [id number] [place] [address] Apr, [facility] [place] [facility] [address] [id number] [place] [address] Apr, [facility] [place] [facility] [address] [id number] [place] [address] Apr, [facility] [place] [facility] [address] [facility] [id number] [place] [address] Apr, [facility] [place] [facility] [address] [id number] [place] [address] Apr, [facility] [place] [facility] [address] [id number] [place] [address] Apr, [facility] [place] [facility] [address] [id number] [place] [address] Mar, [facility] [place] [facility] [address] [id number] [place] [address] Mar, [facility] [place] [facility] [address] [id number] [place] [address] Mar, [facility] [place] [facility] [address] [id number] [place] [address] Mar, [facility] [place] [facility] [address] [id number] [place] [address] Mar, [facility] [place] [facility] [address] [id number] [place] [address] Feb, [facility] [place] [facility] [address] [id number] [place] [address] Feb, [facility] [place] [facility] [id number] [place] [address] Feb, [facility] [place] [facility] [address] [id number] [place] [address] Feb, [facility] [place] [facility] [address] [id number] [place] [address] Feb, [facility] [place] [facility] [address] [id number] [place] [address] Feb, [facility] [place] [facility] [id number] [place] [address] Jan, [facility] [place] [facility] [address] [id number] [place] [address] Jan, [facility] [place] [facility] [address] [id number] [place] [address] Jan, [facility] [place] [facility] [id number] [place] [address] Jan, [facility] [place] [facility] [address] [id number] [place] [address] Dec, [facility] [place] [facility] [id number] [place] [address] Dec, [facility] [place] [facility] [address] [id number] [place] [address] Dec, [facility] [place] [facility] [address] [id number] [place] [address] Dec, [facility] [place] [facility] [address] [id number] [place] [address] Dec, [facility] [place] [facility] [address] [id number] [place] [address] Dec, [facility] [place] [facility] [address] [id number] [place] [address] Nov, [facility] [place] [facility] [address] [id number] [place] [address] Nov, [facility] [place] [facility] [address] [id number] [place] [address] Nov, [facility] [place] [facility] [address] [id number] [place] [address] Nov, [facility] [place] [facility] [address] [id number] [place] [address] Nov, [facility] [place] [facility] [address] [id number] [place] [address] Nov, [facility] [place] [facility] [address] [id number] [place] [address] Oct, [facility] [place] [facility] [address] [id number] [place] [address] Oct, [facility] [place] [facility] [address] [id number] [place] [address] Sep, [facility] [place] [facility] [address] [id number] [place] [address] Sep, [facility] [place] [facility] [address] [id number] [place] [address] Sep, [facility] [place] [facility] [address] [id number] [place] [address] Sep, [facility] [place] [facility] [address] [id number] [place] [address] Aug, IMMUNIZATIONS No Known Immunizations SOCIAL HISTORY Never Assessed REASON FOR VISIT PLAN OF CARE VITAL SIGNS MEDICATIONS Unknown Medications RESULTS No Results PROCEDURES No Known procedures INSTRUCTIONS MEDICATIONS ADMINISTERED No Known Medications MEDICAL (GENERAL) HISTORY Type Description Date Medical History obesity Medical History arthritis back Medical History RLS Medical History migraines Surgical History cholecystectomy 2005 Surgical History orthopedic surgery- bulging disks at L4/L5 since 2008,bilat hip replacement, bilat knee replacement
--- OUTSIDE RECORDS SUMMARY | 2019-05-20 06:52 | XMS REPORT ---
Author Author [employer] Organization [employer]. Address [address] [address] Care Team Providers Care Delivery Driver/Supervisor Name Role Phone JESSICA DUKES Unavailable IBIS CAPPS Unavailable JESSICA DUKES Unavailable ARCHANA GREENWOOD, JORDY Adamson Unavailable Unavailable IRENE GREENWOOD, BALBIR Unavailable Unavailable IRENE GREENWOOD, BALBIR Unavailable Unavailable ERNST GREENWOOD, JESSICA Stein Unavailable Unavailable JEFRY GREENWOOD, IBIS Arias Unavailable Unavailable SEJAL THOMSON Unavailable Unavailable CHRISTINE SAMS DO Unavailable Unavailable Migration, Doctor Unavailable Unavailable Migration, Doctor Unavailable Unavailable Migration, Doctor Unavailable Unavailable Unavailable Unavailable Migration, Doctor Unavailable Unavailable ERNST GREENWOOD, JESSICA Stein Unavailable Unavailable ARCHANA GREENWOOD, JORDY Adamson Unavailable Unavailable IRENE GREENWOOD, BALBIR Unavailable Unavailable IRENE GREENWOOD, BALBIR Unavailable Unavailable SEJAL THOMSON Unavailable Unavailable ERNST GREENWOOD, JESSICA Stein Unavailable Unavailable JEFRY GREENWOOD, IBIS Arias Unavailable Unavailable SLMI MAX Unavailable Unavailable Migration, Doctor Unavailable Unavailable zzSANCHEZ, SHARDA Unavailable zzSANCHEZ, SHARDA Unavailable Migration, Doctor Unavailable Unavailable zzSANCHEZ, SHARDA Unavailable zzSANCHEZ, SHARDA Unavailable zzSANCHEZ, SHADRA Unavailable zzSANCHEZ, SHARDA Unavailable zzSANCHEZ, SHARDA Unavailable zzSANCHEZ, SHARDA Unavailable zzSANCHEZ, SHARDA Unavailable zzSANCHEZ, SHARDA Unavailable zzSANCHEZ, SHARDA Unavailable zzSANCHEZ, SHARDA Unavailable zzSANCHEZ, SHARDA Unavailable zzSANCHEZ, SHARDA Unavailable zzSANCHEZ, SHARDA Unavailable zzSANCHEZ, SHARDA Unavailable zzSANCHEZ, SHARDA Unavailable zzSANCHEZ, SHARDA Unavailable Migration, Doctor Unavailable Unavailable Migration, Doctor Unavailable Unavailable zzSANCHEZ, SHARDA Unavailable zzSANCHEZ, SHARDA Unavailable NATIVIDAD MCGRATH Unavailable JOSE MIGUELERTNATIVIDAD SMITH Unavailable NATIVIDAD MCGRATH Unavailable NATIVIDAD PETERSEN Unavailable zzSANCHEZ, SHARDA Unavailable zzSANCHEZ, SHARDA Unavailable Migration, Doctor Unavailable Unavailable zzSANCHEZ, SHARDA Unavailable Migration, Doctor Unavailable Unavailable LUDA EDUARDO Unavailable NATIVIDAD MCGRATH Unavailable Migration, Doctor Unavailable Unavailable Migration, Doctor Unavailable Unavailable Migration, Doctor Unavailable Unavailable Allergies The data below is from unstructured sources No Information No Information No Information No Information No Information No Information No Information No Information No Information No Information No Information No Information No Information No Information No Information No Information No Information No Information No Information No Information No Information No Information No Information No Information No Information No Information No Information No Information No Information No Information No Information No Information No Information No Information No Information No Information No Information No Information No Information No Information No Information No Information No Information No Information No Information No Information No Information No Information No Information No Information No Information Medications Medication Ingredient Drug Dose Dates Status Sig Sig Care Class(es) (Normalized) (Original) Provid er nitrofurant nitrofurant Nitrofuran 100 mg 11-20-19 Complete take 1 Nitrofuranto Slim oin, oin Antibacteri 18 - d capsule by in Sarita macrocrysta al 11-27-19 mouth twice Macrocrystal Welle r ls 100 mg 18 daily, then (Nitrofurant (no oral take 1 oin) 100 Mg phone) capsule (1 capsule by Capsule 100 source.) mouth Mg ORAL Twice A Day 7 Days 14 Cap 11/19/17 Problems Active Problems Problem Normalized Date of Normalized Normalized Provider Fac ility Classification Problem(s) Problem Problem Problem Sta tus Onset/Resoluti Duration on Residual Acquired 04-20-2019 - 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 SLIM MANSOOR [facility] Via codes; absence of Kacie unclassified other Hospital - (3 sources.) specified [place] parts of (89942) digestive tract Acute Acute 04-20-2019 - 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 SLIM MANSOOR [facility] Via bronchitis (13 bronchitis, Kacie sources.) unspecified Hospital - [place] (07094) Adverse Adverse effect 04-20-2019 - 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 BALBIR CALHOUN , [facility] Via effects of of other [facility] Hospital - (2 sources.) narcotics, [place] initial (81569) encounter Allergic Allergy status 04-20-2019 - 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 SLIM WEL LER Not Available reactions (21 to penicillin (25216) sources.) Other Bariatric 04-20-2019 - 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 SLIM MANSOOR [facility] Via gastrointestin surgery status [facility] al disorders [facility] - (11 sources.) [place] ([address]22) Other Body mass 04-20-2019 - Chronic Active BALBIR BONILLA [facility] Via nutritional; index (BMI) [facility] endocrine; and 50-59.9 , Hospital - metabolic adult [place] disorders (20 (78730) sources.) Unclassified Body mass Chronic Active no name no inform ation (3 sources.) index (BMI) 50-59.9 , adult Translations: [ EDEMA, UNSPECIFIED] Other Care involving 04-20-2019 - 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 JORDY Not Available aftercare (20 other physical MD ARCHANA (71532) sources.) therapy Other bone Chondromalacia 04-20-2019 - 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 IBIS CAPPS [facility] Via disease and , [facility] [place] musculoskeleta [facility] (11 sources.) (09061) Headache; Drug-induced 04-20-2019 - 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 BALBIR MCKINLEY DO [facility] Via including headache, not [facility] [place] migraine (11 elsewhere Hospital - sources.) classified, [place] not (97893) intractable Residual Edema, 04-20-2019 - 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 ALE EID Via codes; unspecified [facility] [place] unclassified Hospital - (8 sources.) [place] (61739) Other Encounter for 04-20-2019 - 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 JESSICA PINEDA [facility] Via screening for screening [facility] [place] suspected mammogram for Hospital - conditions malignant [place] (not mental neoplasm of (44397) disorders or breast infectious disease) (15 sources.) Essential Essential 04-20-2019 - Chronic Active CHRISTINE N ot Available hypertension (primary) DO FLAQUITA (68059) (17 sources.) hypertension Translations: [ HYPERTENSION NOS] Esophageal Gastro-esophag 04-20-2019 - Chronic Active ALE EID Via disorders (22 eal reflux [facility] [place] sources.) disease Hospital - without [place] esophagitis (41161) Translations: [ ESOPHAGEAL REFLUX] Other Hip joint Chronic Active CHRISTINE Not Availab le connective replacement DO FLAQUITA (68162) tissue disease (2 sources.) 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 SLIM MANSOOR Not Available aftercare (21 (current) use (02028) sources.) of systemic steroids Other Morbid 04-20-2019 - Chronic Active ALE EID Via nutritional; (severe) [facility] [facility]; and obesity due to Hospital - metabolic excess [place] disorders (22 calories (79345) sources.) Substance-rela Nicotine 04-20-2019 - Chronic Active JESSICA ERAZO [facility] Via alexus disorders dependence, [facility] [place] (10 sources.) cigarettes, Hospital - uncomplicated [place] (16872) Other skin Nonscarring 04-20-2019 - 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 JESSICA PINEDA [facility] Via disorders (11 hair loss, MD [place] sources.) unspecified Hospital - [place] (51735) External cause Other external 04-20-2019 - 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 DANNIELLE CAPPS [facility] Via codes: cause status , [facility] [place] Unspecified (2 Hospital - sources.) [place] (90562) Other acquired Other forms of 04-20-2019 - Chronic Active GUILLERMO SOHEILA DUKES [facility] Via deformities scoliosis, [facility] [place] (12 sources.) lumbar region Hospital - [place] (27356) Other Other long 04-20-2019 - 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 JESSICA PICKETTN , [facility] Via aftercare (10 term (current) [facility] [place] sources.) drug therapy Hospital [facility] (88443) Malaise and Other malaise 04-20-2019 - 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 JESSICA PICKETTN , Not Available fatigue (20 Translations: (04951) sources.) [ OTHER FATIGUE, OTH MALAISE FATIGUE, OTHER FATIGUE] Other Other 04-20-2019 - 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 SEJAL THOMSON [facility] Via aftercare (11 specified [place]ie sources.) aftercare Hospital - following [place] surgery (54892) Other Pain in joint, 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 JORDY Not Casi ilable non-traumatic shoulder MD ARCHANA (13250) joint region disorders (9 sources.) Other Pain in left 04-22-2019 - 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 JESSICA PICKETT N , [facility] Via connective foot MD [facility] tissue disease Hospital - (1 source.) [place] (09339) Other and Personal 04-20-2019 - 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 SLIM MANSOOR [facility] Via unspecified history of [place] benign colonic polyps Hospital - neoplasm (11 [place] sources.) (75079) Screening and Personal 04-20-2019 - 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 BALBIR MCKINLEY DO , Not Available history of history of MD (22992) mental health nicotine and substance dependence abuse codes (26 sources.) Other Presence of 04-20-2019 - Chronic Active JESSICA ERNST , [facility] Via connective artificial hip [facility] [place] tissue disease joint, Hospital - (21 sources.) bilateral [place] (80525) Other Presence of 04-20-2019 - Chronic Active JESSICA ERNST , [facility] Via connective artificial MD [facility] tissue disease knee joint, [facility] - (21 sources.) bilateral [place] (27810) Other Presence of 04-20-2019 - Chronic Active JESSICA ERNST , [facility] Via connective left MD [facility] tissue disease artificial Hospital - (10 sources.) shoulder joint [place] (23931) Disorders of Pure 04-20-2019 - Chronic Active TAKAAARLEN KID O , [facility] Via lipid hypercholester [facility] [place] metabolism ([facility] - sources[facility] [place] (76879) Other Restless legs 04-20-2019 - Chronic Active BALBIR MCKINLEY DO , Not Available hereditary and syndrome (22155) degenerative nervous system conditions (23 sources.) Abdominal pain Right lower 04-20-2019 - 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 SLIM MANSOOR [facility] Via (11 sources.) quadrant pain [facility] (83993) Sprains and Rotator cuff 04-20-2019 - 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 IBIS CAPPS [facility] Via strains (22 (capsule) , [facility] [place] sources.) sprain Hospital - Translations: [place] [ (SLAP) (04598) SUPERIOR GLENOID LABRUM LESIONS] Immunizations Screening 04-20-2019 - 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 IBIS Cathy OBANDO [facility] Via and screening examination , [facility] [place] for infectious for other Hospital - disease (22 specified [place] sources.) bacterial and (91717) spirochetal diseases Translations: [ ENCOUNTER FOR SCREENING FOR OTHER BACTER] Other lower Shortness of 04-20-2019 - 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 SLIM WE LLER [facility] Via respiratory breath [facility] disease (13 Hospital - sources.) [place] (59810) Spondylosis; Spondylosis, 04-20-2019 - Chronic Active BALBIR BONILLA , Not Available intervertebral unspecified (26940) disc Translations: disorders; [ OTHER other back INTERVERTEBRAL problems (21 DISC sources.) DEGENERATION, , OTH INFLAMMATORY SPONDYLOPATHIE S, LUMBOS, OTH INFLAMMATORY SPONDYLOPATHIE S, LUMBOS] External cause Unspecified 04-20-2019 - 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 JADYN CAPPS [facility] Via codes: accident , [facility] [place] [facility] [place] sources[facility] (82496) Nonmalignant Unspecified 04-20-2019 - 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 JESSICA CARSON , [facility] Via breast lump in breast [facility] [place] conditions (11 Hospital - sources.) [place] (88649) Osteoarthritis Unspecified 04-20-2019 - Chronic Active SLIM MANSOOR [facility] Via (13 sources.) osteoarthritis Kacie , unspecified Hospital - site [place] (89945) Urinary tract Urinary tract 04-20-2019 - 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 SLIM MANSOOR [facility] Via infections (12 infection, Kacie sources.) site not Hospital - specified [place] (11978) Past or Other Problems Problem Normalized Date of Normalized Normalized Provider Fac ility Classification Problem(s) Problem Problem Problem Sta tus Onset/Resoluti Duration on External Adverse effect no information no information BALBIR BONILLA , Not Available Injury - of other (87152) Adverse synthetic effects of narcotics, medical drugs initial (9 sources.) encounter Other bone Disorder of Episodic Completed CHRISTINE Not Avai lable disease and bone and DO FLAQUITA (95697) musculoskeleta cartilage, l deformities unspecified (1 source.) External cause Fall from no information no information JACQUELI NE Not Available codes: other DO F[place]ITA (91962) Overexertion slipping, (2 sources.) tripping, or stumbling Other injuries Hip and thigh Episodic Completed CHRISTINE No t Available and conditions injury DO FLAQUITA (00236) due to external causes (2 sources.) External cause Home accidents no information no information RAJESH QUELINE Not Available codes: Place DO [place] (31887) of occurrence (2 sources.) External cause Other external no information no information RAJESH QUELINE Not Available codes: cause status DO [place] (84166) Unspecified (11 sources.) Other Pain in joint, Episodic Completed CHRISTINE Not Av ailable non-traumatic site DO FLAQUITA (94956) joint unspecified disorders (1 source.) External Unspecified no information no information IBIS SARAH ANNA Not Available Injury - accident MD (58465) Natural / Environment (9 sources.) Other skin Unspecified Episodic Completed CHRISTINE Not Avai lable disorders (1 disease of DO FLAQUITA (97804) source.) nail Procedures Procedure Normalized Procedure Procedure Result Performer Facility Date 11-19-2017 Ct Abd/Pelv W no information SLIM MAX Via [facility] (Appendicitis) [place] (17712) 12-16-2014 EXCISION OF STOMACH, no information no name (no kyree ne) [facility] Via [facility] (47048) EXCISION OF STOMACH, no information no name (no phone) Not A vailable (51423) PERCUTANEOUS ENDOS Immunizations The data below is from unstructured sources No Known Immunizations No Known Immunizations No Known Immunizations No Known Immunizations No Known Immunizations No Known Immunizations No Known Immunizations No Known Immunizations No Known Immunizations No Known Immunizations No Known Immunizations No Known Immunizations No Known Immunizations No Known Immunizations No Known Immunizations No Known Immunizations No Known Immunizations No Known Immunizations No Known Immunizations No Known Immunizations No Known Immunizations No Known Immunizations No Known Immunizations No Known Immunizations No Known Immunizations No Known Immunizations No Known Immunizations No Known Immunizations No Known Immunizations No Known Immunizations No Known Immunizations No Known Immunizations No Known Immunizations No Known Immunizations No Known Immunizations No Known Immunizations No Known Immunizations No Known Immunizations No Known Immunizations No Known Immunizations No Known Immunizations No Known Immunizations No Known Immunizations No Known Immunizations No Known Immunizations No Known Immunizations No Known Immunizations No Known Immunizations No Known Immunizations No Known Immunizations No Known Immunizations No Known Immunizations No Known Immunizations Results Test Name Value Interpretation Reference Range Date Time Fa cility (Normalized) (Normalized) (Medline Reference) venous blood hemoglobin measurement (mass/volume) on 2017-11-19 Hemoglobin mass 14.4 g/dL (no code) 12.1 - 17.2 g/dL Via [facility] urine urobilinogen measurement by automated test strip (mass/volume) on 2017-11-19 Urobilinogen NORMAL (no code) Via [facility] Test strip [facility] (39081) urine total bilirubin detection by test strip on 2017-11-19 Bilirubin Ql (U) no information (no code) Via [facility] (94001) urine protein assay by test strip, semi-quantitativ e on 2017-11-19 Protein Test no information (no code) Via [facility] strip [facility] (61863) urine ph measurement by test strip on 2017-11-19 pH Test strip 7 [pH] (no code) 4.6 - 8 [pH] Via [facility] ([facility] (89786) urine nitrite detection by test strip on 2017-11-19 Nitrite Test no information (no code) Via [facility] strip [facility] (63728) urine ketones detection by automated test strip on 2017-11-19 Ketones no information (no code) Via [facility] Automated test Hospital strip Ql [facility] (90344) urine glucose detection by automated test strip on 2017-11-19 Glucose no information (no code) Via [facility] Automated test Hospital strip Ql ([facility] (64229) urine color determination on 2017-11-19 Color Nom (U) YELLOW (no code) Via [facility] (59918) urine clarity determination on 2017-11-19 Clarity Nom (U) CLEAR (no code) Via [facility] () squamous epithelial cells detection in urine sediment by light microscopy on 2017-11-19 Epithelial no information (no code) Via [facility] cells.squamous [facility] LM Ql (Urine [place] sed) (72807) specific gravity of urine by test strip on 2017-11-19 Specific gravity 1.010 (*) Via [facility] Relative Density Hospital (U) [place] (23822) serum or plasma urea nitrogen/creatin ine mass ratio on 2017-11-19 Urea 21 mg/mg (no code) 6 - 22 mg/mg Via [facility] nitrogen/Creatin [facility] ine mass ratio [place] (01425) serum or plasma urea nitrogen measurement (mass/volume) on 2017-11-19 Urea nitrogen 16 mg/dL (no code) 7 - 20 mg/dL Via [facility] (66387) serum or plasma total bilirubin measurement (mass/volume) on 2017-11-19 Bilirubin mass 0.7 mg/dL (no code) 0.1 - 1.2 mg/dL Via [facility] (52487) serum or plasma sodium measurement (moles/volume) on 2017-11-19 Sodium molar 142 mmol/L (no code) 135 - 145 mmol/L Via [facility] (08639) serum or plasma protein measurement (mass/volume) on 2017-11-19 Protein mass 7.6 g/dL (no code) 6.4 - 8.3 g/dL Via [facility] (97504) serum or plasma potassium measurement (moles/volume) on 2017-11-19 Potassium molar 4.0 mmol/L (no code) 3.7 - 5.2 mmol/L Via [facility] (08654) serum or plasma glucose measurement (mass/volume) on 2017-11-19 Glucose mass 102 mg/dL (no code) 60 - 125 mg/dL Via [facility] (41141) serum or plasma creatinine measurement with calculation of estimated glomerular filtration rate on 2017-11-19 GFR/1.73 sq M no information (no code) Via [facility] non-blacks MDRD [place] vol rate/area () (S/P/Bld) serum or plasma creatinine measurement (mass/volume) on 2017-11-19 Creatinine mass 0.75 mg/dL (no code) Via [facility] (50901) serum or plasma chloride measurement (moles/volume) on 2017-11-19 Chloride molar 106 mmol/L (no code) 95 - 106 mmol/L Via [facility] (90564) serum or plasma calcium measurement (mass/volume) on 2017-11-19 Calcium mass 9.4 mg/dL (no code) 8.5 - 10.2 mg/dL [facility] (17364[facility] serum or plasma c reactive protein measurement (mass/volume) on 2017-11-19 CRP mass conc 0.35 mg/L (no code) 0 - 8 mg/L Via [facility] (16797) serum or plasma aspartate aminotransferase measurement (enzymatic activity/volume) on 2017-11-19 AST enzyme 25 U/L (no code) 10 - 34 U/L Via [facility] (26492) serum or plasma anion gap determination (moles/volume) on 2017-11-19 Anion gap 3 7 mmol/L (no code) 3 - 11 mmol/L Via [facility] (34901) serum or plasma alkaline phosphatase measurement (enzymatic activity/volume) on 2017-11-19 ALP enzyme 87 U/L (no code) 44 - 147 U/L Via [facility] (13257) serum or plasma albumin measurement (mass/volume) on 2017-11-19 Albumin mass 4.6 g/dL (H) 3.4 - 5.4 g/dL Via [facility] (58858) serum or plasma alanine aminotransferase measurement (enzymatic activity/volume) on 2017-11-19 ALT enzyme 13 U/L (no code) 4 - 40 U/L Via [facility] (32139) mucus detection in urine sediment by light microscopy on 2017-11-19 Mucus LM Ql no information (no code) Via [facility] (Urine sed) [facility] (52700) magnesium on 2017-11-19 Magnesium mass 2.4 mg/dL (no code) 1.7 - 2.2 mg/dL Via [facility] (37244) leukocyte esterase on 2017-11-19 Leukocyte 3+ (*) Via [facility] esterase Test Hospital strip Ql (U) [place] () erythrocytes detection in urine sediment by light microscopy on 2017-11-19 RBC LM Ql (Urine no information (no code) Via [facility] sed) [facility] () crystals detection in urine sediment by light microscopy on 2017-11-19 Crystals LM Ql NONE (no code) Via [facility] (Urine sed) [facility] (42563) complete urinalysis with reflex to culture on 2017-11-19 Urinalysis YES (no code) Via [facility] Reflex Culture [place] panel - Urine () casts detection in urine sediment by light microscopy on 2017-11-19 Casts LM Ql NONE (no code) Via [facility] (Urine sed) [facility] () carbon dioxide on 2017-11-19 CO2 molar conc 29 mmol/L (no code) 23 - 29 mmol/L Via Chr isti [facility] () blood neutrophils automated count (number/volume) on 2017-11-19 Neutrophils Auto 5.1 10*3/uL (no code) 1.7 - 7 10*3/uL Via Kacie #/vol (Bld) [facility] () blood monocytes/100 leukocytes on 2017-11-19 Monocytes/100 7 % (no code) 2 - 8 % Via Kacie WBC Auto (Bld) [facility] () blood monocytes automated count (number/volume) on 2017-11-19 Monocytes Auto 0.5 10*3/uL (no code) 0.3 - 0.9 Via Kacie #/vol (Bld) 10*3/uL [facility] (02408) blood lymphocytes automated count (number/volume) on 2017-11-19 Lymphocytes Auto 1.7 10*3/uL (no code) 0.9 - 2.9 Via Slava ti #/vol (Bld) 10*3/uL [facility] () blood leukocytes automated count (number/volume) on 2017-11-19 WBC Auto #/vol 7.5 10*3/uL (no code) 3.5 - 10.5 Via Kacie (Bld) 10*3/uL [facility] (14920) blood hematocrit (volume fraction) on 2017-11-19 Hematocrit Auto 42 % (no code) 36.1 - 50.3 % Via [facility] Volume Fraction Hospital (Bld) [place] (04609) blood erythrocytes automated count (number/volume) on 2017-11-19 RBC Auto #/vol 4.85 10*6/uL (no code) 4.2 - 6.1 Via [facility] i (Bld) 10*6/uL [facility] (07399) bacteria detection in urine sediment by light microscopy on 2017-11-19 Bacteria LM Ql FEW (*) Via [facility] (Urine sed) [facility] (48373) automated urine sediment leukocyte count by microscopy (number/high power field) on 2017-11-19 WBC LM.HPF no information (*) Via [facility] #/area (Urine Hospital sed) [place] (15784) automated urine sediment erythrocyte count by microscopy (number/high power field) on 2017-11-19 RBC LM.HPF RARE (no code) Via [facility] #/area (Urine [facility] [place] (32481) automated erythrocyte mean corpuscular volume on 2017-11-19 MCV Auto Entitic 87 fL (no code) 80 - 100 fL Via [facility] sti volume (RBC) [facility] (97113) automated erythrocyte mean corpuscular hemoglobin concentration measurement (mass/volume) on 2017-11-19 MCHC Auto mass 34 g/dL (no code) 32 - 36 g/dL Via [facility] conc (RBC) [facility] (85741) automated erythrocyte mean corpuscular hemoglobin (mass per erythrocyte) on 2017-11-19 MCH Auto Entitic 30 pg (no code) 27 - 31 pg Via [facility] mass (RBC) [facility] (83849) automated erythrocyte distribution width ratio on 2017-11-19 Erythrocyte 13.4 % (no code) 11.6 - 14.6 % Via [facility] distribution Hospital width Auto Ratio [place] (RBC) (42739) automated eosinophil count on 2017-11-19 Eosinophils Auto 0.2 10*3/uL (no code) 0.05 - 0.5 Via [facility] ti #/vol (Bld) 10*3/uL [facility] (97796) automated blood platelet mean volume measurement on 2017-11-19 Platelet mean 10.8 fL (H) 7.2 - 11.7 fL Via [facility] ti volume Auto Hospital Entitic volume [place] (d) (48555) automated blood platelet count (count/volume) on 2017-11-19 Platelets Auto 181 10*3/uL (no code) 150 - 450 Via [place]acie #/vol (Bld) 10*3/uL [facility] (59260) automated blood neutrophils/100 leukocytes on 2017-11-19 Neutrophils/100 68 % (no code) 40 - 60 % [facility] WBC Auto (Bld) [facility] ([id number]) automated blood lymphocytes/100 leukocytes on 2017-11-19 Lymphocytes/100 23 % (no code) 20 - 40 % [facility] WBC Auto (Bld) [facility] ([id number]) automated blood eosinophils/100 leukocytes on 2017-11-19 Eosinophils/100 3 % (no code) 1 - 4 % [facility] WBC Auto (Bld) [facility] ([id number]) automated blood basophils/100 leukocytes on 2017-11-19 Basophils/100 0 % (no code) 0.5 - 1 % [facility] WBC Auto (Bld) [facility] ([id number]) automated blood basophil count (count/volume) on 2017-11-19 Basophils Auto 0.0 10*3/uL (no code) 0 - 0.3 10*3/uL [facility] #/vol (Bld) [facility] ([id number]) Vital Signs The data below is from unstructured sources Vital Response Date/Time Temperature (Fahrenheit) 98.3 degree s F (97.6 - 99.5) 12/18/2014 12:44pm Temperature (Calculated Celsius) 36. 51457 degrees C (36.4 - 37.5) 12/18/2014 5:31am Temperature Source Tympanic 12/18/2014 12:44pm Pulse Rate (adult) 96 bpm (60 - 90) 12/18/2014 12:44pm Respiratory Rate 16 bpm (12 - 24) 12/18/2014 12:44pm O2 Sat by Pulse Oximetry 98 % (88 - 100) 12/18/2014 12:44pm Blood Pressure 117/78 mm Hg 12/18/2014 12:44pm Blood Pressure Mean 91 mm Hg 12/18/2014 5:31am Pain Pain Intensity 0 2014 10:02am Height (Feet) 5 feet 8:31am Height (Inches) 5.00 inches 12/16/2014 8:31am Height (Calculated Centimeters) 165. 387471 cm 12/16/2014 8:31am Weight (Pounds) 329 pounds 12/16/2014 8:31am Weight (Ounces) 1.6 oz 1 8:31am Weight (Calculated Grams) 641273.250 gm 12/16/2014 8:31am Weight (Calculated Kilograms) 149.27 7250 kilograms 12/16/2014 8:31am Calculated BMI 54.74 8:31am Vital Response Date/Time Temperature (Fahrenheit) 97.7 degree s F (97.6 - 99.5) Temperature (Calculated Celsius) 36. 24087 degrees C (36.4 - 37.5) Temperature Source Tympanic Pulse Rate (adult) 83 bpm (60 - 90) Respiratory Rate 16 bpm (12 - 24) O2 Sat by Pulse Oximetry 95 % (88 - 100) Blood Pressure 108/60 mm Hg Pain Pain Intensity 5 Height (Feet) 5 feet Height (Inches) 6.00 inches Height (Calculated Centimeters) 167. 462040 cm Weight (Pounds) 326 pounds Weight (Calculated Grams) 444638.114 gm Weight (Calculated Kilograms) 147.87 1114 kilograms Height 5 ft 6 in Weight 326 lb Body Mass Index 52.6 kg/m^2 Vital Response Date/Time Temperature (Fahrenheit) 96.8 degree s F (97.6 - 99.5) 04/25/2017 10:30am Temperature (Calculated Celsius) 36. 64752 degrees C (36.4 - 37.5) 04/25/2017 8:30am Temperature Source Tympanic 04/25/2017 10:30am Pulse Rate (adult) 79 bpm (60 - 90) 04/25/2017 10:30am Respiratory Rate 20 bpm (12 - 24) 04/25/2017 10:30am O2 Sat by Pulse Oximetry 94 % (88 - 100) 04/25/2017 10:30am Blood Pressure 121/69 mm Hg 04/25/2017 10:30am Blood Pressure Mean 86 mm Hg (65 - 110) 04/25/2017 8:30am Pain Numeric Pain Scale 8 10:30am Height (Feet) 5 feet 5:10pm Height (Inches) 4.00 inches 04/23/2017 5:10pm Height (Calculated Centimeters) 162. 883981 cm 04/23/2017 5:10pm Height Method Stated 6:04am Weight (Pounds) 287 pounds 04/23/2017 5:10pm Weight (Ounces) 0.0 oz 0 04/23/2017 5:10pm Weight (Calculated Grams) 759315.01 gm 04/23/2017 5:10pm Weight (Calculated Kilograms) 130.18 1011 kilograms 04/23/2017 5:10pm Calculated BMI 49.3 03/29 5:10pm Weight Method Stated 6:04am Capillary Refill Capillary Refill Less Than 3 Seconds 04/22/2017 6:04am Vital Response Date/Time Temperature (Fahrenheit) 97.0 degree s F (97.6 - 99.5) 11/19/2017 1:16pm Temperature (Calculated Celsius) 36. 62158 degrees C (36.4 - 37.5) 11/19/2017 1:16pm Temperature Source Temporal 11/19/2017 1:16pm Pulse Rate (adult) 82 bpm (60 - 90) 11/19/2017 3:30pm Respiratory Rate 16 bpm (12 - 24) 11/19/2017 3:30pm O2 Sat by Pulse Oximetry 98 % (88 - 100) 11/19/2017 3:30pm Blood Pressure 118/90 mm Hg 11/19/2017 3:30pm Blood Pressure Mean 116 mm Hg (65 - 110) 11/19/2017 1:16pm Pain Numeric Pain Scale 2 3:30pm Height (Feet) 5 feet 1:16pm Height (Inches) 4.00 inches 11/19/2017 1:16pm Height (Calculated Centimeters) 162. 408648 cm 11/19/2017 1:16pm Height Method Stated 1:16pm Weight (Pounds) 270 pounds 11/19/2017 1:16pm Weight (Calculated Grams) 252526.94 gm 11/19/2017 1:16pm Weight (Calculated Kilograms) 122.46 9941 kilograms 11/19/2017 1:16pm Weight Method Stated 1:16pm Capillary Refill Capillary Refill Less Than 3 Seconds 11/19/2017 1:16pm Height 5 ft 4 in 018 1:16pm Weight 270 lb 11/19/2017 1:16pm Body Mass Index 46.3 kg/m^2 11/19/2017 1:16pm Blood pressure systolic 126 mmHg 2013-07-23 Blood pressure diastolic 86 mmHg 2013-07-23 Interventions No Information Plan of Treatment The data below is from unstructured sources Discharge Date 12/18/14 12:50pm Instructions/Education Provided [place] roscopic Sleeve Gastrectomy (DC) Prescriptions See Medication Section Discharge Date 12/18/14 12:50pm Disposition [facility] TO CODE Instructions/Education Provided [place] roscopic Sleeve Gastrectomy (DC) Forms Provided PDI Surgical Prescriptions See Medication Section Referrals (Unspecified) - Reason(s) for Referral: FOLLOW UP WITH DR BONILLA IN 2 WEEKS [phone] Care Plan and Goals See Discharge In structions Section Discharge Date 04/25/17 11:15am Disposition 01 HOME, SELF-CARE Instructions/Education Provided Acut e Bronchitis in Adults Prescriptions See Medication Section Referrals JESSICA DUKES MD (Unspeci fied) Entered Date: 04/25/2017 9:44am Address: [address] [place] [address] [address] [place] [address] [phone] Note: APPOINTMENT AT 8:30 AM Discharge Date 11/19/17 3:32pm Disposition 01 HOME, SELF-CARE Condition at Discharge Stable Instructions/Education Provided Urin malika Tract Infection, Adult (DC) Forms Provided Work Release Form Prescriptions See Medication Section Referrals JESSICA DUKES MD Order Date: Primary Care Physician Address: [address] [place] [address] [address] [place] [address] [phone] Additional Instructions/Education ink lots of fluids and take the antibiotics twice a day for the next week. Follow-up with her primary care doctor if your symptoms do not improve in 3-4 days. Goals No Information Social History No Information Functional Status The data below is from unstructured sources Query Response Date Joseph rded Patient Orientation Person Place Time Situation December 18, 2014 1:02pm Query Response Date Joseph rded Patient Orientation Person Place Time Situation December 21, 2014 4:36pm Query Response Date Joseph rded Comprehension Ability Understands Co ncepts April 24, 2017 9:00am Mental Status No Information Encounters Encounter Normalized Encounter Encounter Diagnosis Care Provi hayley Organization Date Type 11-19-2017 Emergency department no information [employer] [facility] no organization name - patient visit (no phone ) 11-19-2017 11-19-2017 Emergency department no information [facility] MD (no [facility] - patient visit phone) [facility] 11-19-2017 (no phone) 04-22-2017 Emergency department no information [facility] MD (no [facility] - patient visit phone) [facility] 04-22-2017 (no phone) 04-23-2017 Evaluation and no information no name (no phone) n o organization name - management of (no phone) 04-25-2017 inpatient 04-23-2017 Evaluation and no information JESSICA DUKES MD (no [facility] - management of phone) [facility] 04-25-2017 inpatient (no phone) 12-16-2014 Evaluation and no information BALBIR BONILLA MD (no [facility] - management of phone) [facility] 12-18-2014 inpatient (no phone) 11-28-2017 Patient encounter no information no name (no phone) no organization name (no phone) 11-19-2017 Patient encounter no information no name (no phone) no organization name (no phone) 04-22-2017 Patient encounter no information no name (no phone) no organization name (no phone) 06-28-2015 Patient encounter no information no name (no phone) no organization name (no phone) 05-25-2015 Patient encounter no information no name (no phone) no organization name (no phone) 05-25-2015 Patient encounter no information no name (no phone) no organization name (no phone) 09-01-2014 Patient encounter no information no name (no phone) no organization name (no phone) 03-24-2014 Patient encounter no information no name (no phone) no organization name - (no phone) 04-12-2014 03-03-2014 Patient encounter no information no name (no phone) no organization name - (no phone) 03-03-2014 02-26-2013 Patient encounter no information no name (no phone) no organization name - (no phone) 02-26-2013 10-13-2012 Patient encounter no information no name (no phone) no organization name (no phone) 12-18-2011 Patient encounter no information no name (no phone) no organization name (no phone) 05-14-2019 Patient encounter no information IBIS Cantu [facility] - procedure (no phone) [facility] 05-14-2019 (no phone) 04-20-2019 Patient encounter no information JESSICA DUKES MD (no [facility] procedure phone) [facility] (no phone) 07-23-2018 Patient encounter no information no name (no phone) no organization name procedure (no phone) 07-23-2018 Patient encounter no information JESSICA DUKES MD (no [facility] procedure phone) [facility] (no phone) 11-28-2017 Patient encounter no information JESSICA DUKES MD (no [facility] procedure phone) [facility] (no phone) 06-28-2015 Patient encounter no information JESSICA DUKES MD (no [facility] procedure phone) [facility] (no phone) 05-25-2015 Patient encounter no information JESSICA DUKES MD (no [facility] procedure phone) [facility] (no phone) 05-25-2015 Patient encounter no information JESSICA DUKES MD (no [facility] procedure phone) [facility] (no phone) 12-08-2014 Patient encounter no information BALBIR BONILLA MD (n o [facility] procedure phone) [facility] (no phone) 09-01-2014 Patient encounter no information BALBIR BONILLA MD (n o [facility] procedure phone) [facility] (no phone) 03-24-2014 Patient encounter no information SEJAL REICH (no [facility] - procedure phone) [facility] 04-12-2014 (no phone) 03-03-2014 Patient encounter no information IBIS Cantu [facility] - procedure (no phone) [facility] 03-03-2014 (no phone) 05-25-2011 Patient encounter no information no name (no phone) no organization name procedure (no phone) 05-15-2019 no information Encounter for other no name (no phon e) no organization name preprocedural (no phone) examination 04-20-2019 no information Encounter for no name (no phone) no organization name preprocedural (no phone) laboratory examination 04-20-2019 no information Pre-procedural no name (no phone) n o organization name laboratory examination (no phone) 04-20-2019 no information Encounter for general no name (no ph one) no organization name adult medical (no phone) examination without abnormal findings no information Pre-procedural no name (no phone) no organiza tion name laboratory examination (no phone) no information Encounter for no name (no phone) no organiza tion name preprocedural (no phone) laboratory examination Medical Equipment No Information Payers Normalized Payer Value Private Health Insurance [id number] History general Narrative - Reported Note Type Note Facility History general Narrative - Reported Type Medical obesity History Medical arthritis back History Medical RLS History Medical migraines History Surgical cholecystectomy 2005 History Surgical orthopedic surgery- bulging disks at L4/L5 since 2008,bilat hip replacement, History bilat knee replacement [facility] ([id number]) Advance Directives Directive Response Recor ded Date/Time Advance Directives Yes 1 8:31am Health Care Power of Trauma Coordinator No 12/16/14 8:31am Organ Donor No 12/16/14 8:31am Resuscitation Status Full Code 12/16/14 8:31am Directive Response Recor ded Date/Time Advance Directives Yes 0 03/03/14 9:00am Health Care Power of Trauma Coordinator No 03/03/14 9:00am Organ Donor No 03/03/14 9:00am Resuscitation Status Full Code 03/03/14 9:00am Directive Response Recor ded Date/Time Advance Directives Yes 0 03/03/14 9:00am Health Care Power of Trauma Coordinator No 03/03/14 9:00am Organ Donor No 03/03/14 9:00am Directive Response Recor ded Date/Time Advance Directives Yes 0 04/23/17 4:56pm Health Care Power of Trauma Coordinator No 04/23/17 4:56pm Organ Donor Yes 04/23/17 4:56pm Resuscitation Status Full Code 04/23/17 4:56pm Directive Response Recor ded Date/Time Advance Directives Yes 0 11/19/17 1:16pm Health Care Power of Trauma Coordinator No 11/19/17 1:16pm Organ Donor Yes 11/19/17 1:16pm Resuscitation Status Full Code 11/19/17 1:16pm Discharge Instructions Patient Instructions Physician Instructions New, Converted, or Re-Newed RX: RX on Chart Follow Up Appt in 2 weeks Activity as tolerated No driving for 24 hours No driving while on pain medications Incentive Spirometry use every 2 hours while awake Phase 1 clear liquid diet 2 weeks. Symptoms to Report: Fever over 101 degree F, Nausea/Vomiting Infection Signs and Symptoms to report: Increased redness, Foul odor of wound, Increased drainage Bathing instructions: May shower Operative Area Clean/Dry; Keep incision clean/dry If any problems/questions: Contact your physician or go to Emergency Room Patient Instructions Physician Instructions New, Converted, or Re-Newed RX: RX on Chart Follow Up Appt in 2 weeks Activity as tolerated No driving for 24 hours No driving while on pain medications Incentive Spirometry use every 2 hours while awake Phase 1 clear liquid diet 2 weeks. Symptoms to Report: Fever over 101 degree F, Nausea/Vomiting Infection Signs and Symptoms to report: Increased redness, Foul odor of wound, Increased drainage Bathing instructions: May shower Operative Area Clean/Dry; Keep incision clean/dry If any problems/questions: Contact your physician or go to Emergency Room Patient Instructions Physician Instructions New, Converted, or Re-Newed RX: RX on Chart Follow Up Appt in 2 weeks Activity as tolerated No driving for 24 hours No driving while on pain medications Incentive Spirometry use every 2 hours while awake Phase 1 clear liquid diet 2 weeks. Symptoms to Report: Fever over 101 degree F, Nausea/Vomiting Infection Signs and Symptoms to report: Increased redness, Foul odor of wound, Increased drainage Bathing instructions: May shower Operative Area Clean/Dry; Keep incision clean/dry If any problems/questions: Contact your physician or go to Emergency Room No hospital discharge instructions.No hospital discharge instructions.No hospital discharge instruction information available.No hospital discharge instruction information available. Chief Complaint and Reason for Visit Chief Complaint Abdominal/GI Problem s Reason for Visit Urinary tract infec tion Additional Source Comments This clinical document has been generated using [employer] software that has been certified by the Office of the National Coordinator for Health Information Technology (ONC 15.99.04.3023.Diam.31.00.0.857654) and the National Committee for Business Continuity Planner (NCQA, as an eMeasure certified technology). FOR RECORDS PERTAINING TO PATIENTS WHO ARE OR HAVE BEEN ENROLLED IN A CHEMICAL D EPENDENCY/SUBSTANCE ABUSE PROGRAM, SOME INFORMATION MAY BE OMITTED. This clinica l summary was aggregated from multiple sources. Caution should be exercised in using it in the provision of clinical care. This summary normalizes information from multiple sources, and as a consequence, information in this document may ma terially change the coding, format and clinical context of patient data. In jamin tion, data may be omitted in some cases. CLINICAL DECISIONS SHOULD BE BASED ON T HE PRIMARY CLINICAL RECORDS. [employer] provides no warranty or guara ntee of the accuracy or completeness of information in this document.The followi information is based on time limited clinical information UNRECOGNIZED CONTENT PROVIDED BELOW FOR UNRECOGNIZED SECTION REASON FOR VISIT [id number] UNRECOGNIZED CONTENT PROVIDED BELOW FOR UNRECOGNIZED SECTION MEDICAL (GENERAL) HISTORY Type Description Date Medical History obesity Medical History arthritis back Medical History RLS Medical History migraines Surgical History cholecystectomy 2005 Surgical History orthopedic surgery- bulging disks at L4/L5 since 2008,bilat hip replacement, bilat knee replacement
--- OUTSIDE RECORDS SUMMARY | 2019-05-20 06:52 | XMS REPORT ---
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 96062670 Problem Edema 782.3 Active 675131836 Problem Pain in joint, shoulder region 719.41 Active 521174034 Problem Lumbago 724.2 Active 560010855 Problem Anxiety state, unspecified 300.00 Act ahmet [id number] ALLERGIES No Information ENCOUNTERS Encounter Location Date Diagnosis [facility] [address] [address] June, [facility] [address] [address] June, [facility] [address] [address] 29 May, 2014 [facility] [address] [address] May, Obesity 278.00 and Lumbago 724.2 [facility] [address] [address] May, [facility] [address] [address] May, [facility] [address] [address] Apr, [facility] [address] [address] Apr, [facility] [address] [id number] [place] [address] 18 Apr, 2014 [facility] [place] [facility] [address] [id number] [place] [address] Apr, [facility] [place] [facility] [address] [id number] [place] [address] Apr, [facility] [place] [facility] [address] [id number] [place] [address] Apr, [facility] [place] [facility] [address] [id number] [place] [address] Mar, [facility] [place] [facility] [address] [id number] [place] [address] Mar, [facility] [place] [facility] [address] [id number] [place] [address] Mar, [facility] [place] [facility] [address] [id number] [place] [address] Mar, [facility] [place] [facility] [address] [id number] [place] [address] Mar, [facility] [place] [facility] [address] [id number] [place] [address] Mar, [facility] [place] [facility] [address] [id number] [place] [address] Feb, [facility] [place] [facility] [address] [id number] [place] [address] Feb, [facility] [place] [facility] [address] [id number] [place] [address] Feb, [facility] [place] [facility] [address] [id number] [place] [address] Feb, [facility] [place] [facility] [address] [id number] [place] [address] Feb, [facility] [place] [facility] [address] [id number] [place] [address] Feb, [facility] [place] [facility] [address] [id number] [place] [address] Jan, [facility] [place] [facility] [address] [id number] [place] [address] Jan, [facility] [place] [facility] [address] [id number] [place] [address] Jan, [facility] [place] [facility] [address] [id number] [place] [address] Jan, [facility] [place] [facility] [address] [id number] [place] [address] Jan, [facility] [place] [facility] [address] [id number] [place] [address] Jan, [facility] [place] [facility] [address] [id number] [place] [address] Jan, [facility] [place] [facility] [address] [id number] [place] [address] Jan, [facility] [place] [facility] [address] [id number] [place] [address] Jan, [facility] [place] [facility] [address] [id number] [place] [address] Jan, [facility] [place] [facility] [address] [id number] [place] [address] Jan, [facility] [place] [facility] [address] [id number] [place] [address] Dec, [facility] [place] [facility] [address] [id number] [place] [address] Dec, [facility] [place] [facility] [address] [id number] [place] [address] Dec, [facility] [place] [facility] [address] [id number] [place] [address] Dec, [facility] [place] [facility] [address] [id number] [place] [address] Dec, [facility] [place] [facility] [address] [id number] [place] [address] Dec, [facility] [place] [facility] [address] [id number] [place] [address] Nov, [facility] [place] [facility] [address] [id number] [place] [address] Nov, [facility] [place] [facility] [address] [id number] [place] [address] Nov, [facility] [place] [facility] [address] [id number] [place] [address] Nov, [facility] [place] [facility] [address] [id number] [place] [address] Nov, [facility] [place] [facility] [address] [id number] [place] [address] Nov, [facility] [place] [facility] [address] [id number] [place] [address] Oct, [facility] [place] [facility] [address] [id number] [place] [address] Oct, [facility] [place] [facility] [address] [id number] [place] [address] Oct, [facility] [place] [facility] [address] [id number] [place] [address] Oct, [facility] [place] [facility] [address] [id number] [place] [address] Oct, [facility] [place] [facility] [address] [id number] [place] [address] Oct, [facility] [place] [facility] [address] [id number] [place] [address] Sep, [facility] [place] [facility] [address] [id number] [place] [address] Sep, [facility] [place] [facility] [address] [id number] [place] [address] Sep, [facility] [place] [facility] [address] [id number] [place] [address] Sep, [facility] [place] [facility] [address] [id number] [place] [address] Aug, [facility] [place] [facility] [address] [facility] [id number] [place] [address] Aug, [facility] [place] [facility] [address] [id number] [place] [address] Jul, [facility] [place] [facility] [address] [id number] [place] [address] Jul, [facility] [place] [facility] [address] [id number] [place] [address] Jul, [facility] [place] [facility] [address] [facility] [id number] [place] [address] Jul, [facility] [place] [facility] [address] [id number] [place] [address] Jul, [facility] [place] [facility] [address] [id number] [place] [address] Jul, [facility] [place] [facility] [address] [id number] [place] [address] June, [facility] [place] [facility] [address] [id number] [place] [address] June, [facility] [place] [facility] [address] [id number] [place] [address] June, [facility] [place] [facility] [address] [id number] [place] [address] June, [facility] [place] [facility] [address] [id number] [place] [address] June, [facility] [place] [facility] [address] [id number] [place] [address] June, [facility] [place] [facility] [address] [id number] [place] [address] June, [facility] [place] [facility] [address] [id number] [place] [address] June, [facility] [place] [facility] [address] [id number] [place] [address] June, [facility] [place] [facility] [address] [id number] [place] [address] June, [facility] [place] [facility] [address] [facility] [id number] [place] [address] June, [facility] [place] [facility] [address] [facility] [id number] [place] [address] June, [facility] [place] [facility] [address] [id number] [place] [address] June, [facility] [place] [facility] [address] [id number] [place] [address] June, [facility] [place] [facility] [address] [facility] [id number] [place] [address] June, [facility] [place] [facility] [address] [id number] [place] [address] June, [facility] [place] [facility] [address] [id number] [place] [address] May, [facility] [place] [facility] [address] [id number] [place] [address] May, [facility] [place] [facility] [address] [id number] [place] [address] May, [facility] [place] [facility] [address] [id number] [place] [address] May, [facility] [place] [facility] [address] [id number] [place] [address] Apr, [facility] [place] [facility] [address] [id number] [place] [address] Apr, [facility] [place] [facility] [address] [id number] [place] [address] Apr, [facility] [place] [facility] [address] [facility] [id number] [place] [address] Apr, [facility] [place] [facility] [address] [id number] [place] [address] Apr, [facility] [place] [facility] [address] [id number] [place] [address] Apr, [facility] [place] [facility] [address] [id number] [place] [address] Mar, [facility] [place] [facility] [address] [id number] [place] [address] Mar, [facility] [place] [facility] [address] [id number] [place] [address] Mar, [facility] [place] [facility] [address] [id number] [place] [address] Mar, [facility] [place] [facility] [address] [id number] [place] [address] Mar, [facility] [place] [facility] [address] [id number] [place] [address] Feb, [facility] [place] [facility] [address] [id number] [place] [address] Feb, [facility] [place] [facility] [id number] [place] [address] Feb, [facility] [place] [facility] [address] [id number] [place] [address] Feb, [facility] [place] [facility] [address] [id number] [place] [address] Feb, [facility] [place] [facility] [address] [id number] [place] [address] Feb, [facility] [place] [facility] [id number] [place] [address] Jan, [facility] [place] [facility] [address] [id number] [place] [address] Jan, [facility] [place] [facility] [address] [id number] [place] [address] Jan, [facility] [place] [facility] [id number] [place] [address] Jan, [facility] [place] [facility] [address] [id number] [place] [address] Dec, [facility] [place] [facility] [id number] [place] [address] Dec, [facility] [place] [facility] [address] [id number] [place] [address] Dec, [facility] [place] [facility] [address] [id number] [place] [address] Dec, [facility] [place] [facility] [address] [id number] [place] [address] Dec, [facility] [place] [facility] [address] [id number] [place] [address] Dec, [facility] [place] [facility] [address] [id number] [place] [address] Nov, [facility] [place] [facility] [address] [id number] [place] [address] Nov, [facility] [place] [facility] [address] [id number] [place] [address] Nov, [facility] [place] [facility] [address] [id number] [place] [address] Nov, [facility] [place] [facility] [address] [id number] [place] [address] Nov, [facility] [place] [facility] [address] [id number] [place] [address] Nov, [facility] [place] [facility] [address] [id number] [place] [address] Oct, [facility] [place] [facility] [address] [id number] [place] [address] Oct, [facility] [place] [facility] [address] [id number] [place] [address] Sep, [facility] [place] [facility] [address] [id number] [place] [address] Sep, [facility] [place] [facility] [address] [id number] [place] [address] Sep, [facility] [place] [facility] [address] [id number] [place] [address] Sep, [facility] [place] [facility] [address] [id number] [place] [address] Aug, IMMUNIZATIONS No Known Immunizations SOCIAL HISTORY [...]
--- OUTSIDE RECORDS SUMMARY | 2019-05-20 06:53 | XMS REPORT ---
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 45554308 Problem Edema 782.3 Active 132149794 Problem Pain in joint, shoulder region 719.41 Active 827596610 Problem Lumbago 724.2 Active 513961071 Problem Anxiety state, unspecified 300.00 Act ahmet [id number] ALLERGIES No Information ENCOUNTERS Encounter Location Date Diagnosis [facility] [address] [address] June, [facility] [address] [address] June, [facility] [address] [address] 29 May, 2014 [facility] [address] [address] May, Obesity 278.00 and Lumbago 724.2 [facility] [address] [address] May, [facility] [address] [address] May, [facility] [address] [address] Apr, [facility] [address] [address] Apr, [facility] [address] [id number] [place] [address] 18 Apr, 2014 [facility] [place] [facility] [address] [id number] [place] [address] Apr, [facility] [place] [facility] [address] [id number] [place] [address] Apr, [facility] [place] [facility] [address] [id number] [place] [address] Apr, [facility] [place] [facility] [address] [id number] [place] [address] Mar, [facility] [place] [facility] [address] [id number] [place] [address] Mar, [facility] [place] [facility] [address] [id number] [place] [address] Mar, [facility] [place] [facility] [address] [id number] [place] [address] Mar, [facility] [place] [facility] [address] [id number] [place] [address] Mar, [facility] [place] [facility] [address] [id number] [place] [address] Mar, [facility] [place] [facility] [address] [id number] [place] [address] Feb, [facility] [place] [facility] [address] [id number] [place] [address] Feb, [facility] [place] [facility] [address] [id number] [place] [address] Feb, [facility] [place] [facility] [address] [id number] [place] [address] Feb, [facility] [place] [facility] [address] [id number] [place] [address] Feb, [facility] [place] [facility] [address] [id number] [place] [address] Feb, [facility] [place] [facility] [address] [id number] [place] [address] Jan, [facility] [place] [facility] [address] [id number] [place] [address] Jan, [facility] [place] [facility] [address] [id number] [place] [address] Jan, [facility] [place] [facility] [address] [id number] [place] [address] Jan, [facility] [place] [facility] [address] [id number] [place] [address] Jan, [facility] [place] [facility] [address] [id number] [place] [address] Jan, [facility] [place] [facility] [address] [id number] [place] [address] Jan, [facility] [place] [facility] [address] [id number] [place] [address] Jan, [facility] [place] [facility] [address] [id number] [place] [address] Jan, [facility] [place] [facility] [address] [id number] [place] [address] Jan, [facility] [place] [facility] [address] [id number] [place] [address] Jan, [facility] [place] [facility] [address] [id number] [place] [address] Dec, [facility] [place] [facility] [address] [id number] [place] [address] Dec, [facility] [place] [facility] [address] [id number] [place] [address] Dec, [facility] [place] [facility] [address] [id number] [place] [address] Dec, [facility] [place] [facility] [address] [id number] [place] [address] Dec, [facility] [place] [facility] [address] [id number] [place] [address] Dec, [facility] [place] [facility] [address] [id number] [place] [address] Nov, [facility] [place] [facility] [address] [id number] [place] [address] Nov, [facility] [place] [facility] [address] [id number] [place] [address] Nov, [facility] [place] [facility] [address] [id number] [place] [address] Nov, [facility] [place] [facility] [address] [id number] [place] [address] Nov, [facility] [place] [facility] [address] [id number] [place] [address] Nov, [facility] [place] [facility] [address] [id number] [place] [address] Oct, [facility] [place] [facility] [address] [id number] [place] [address] Oct, [facility] [place] [facility] [address] [id number] [place] [address] Oct, [facility] [place] [facility] [address] [id number] [place] [address] Oct, [facility] [place] [facility] [address] [id number] [place] [address] Oct, [facility] [place] [facility] [address] [id number] [place] [address] Oct, [facility] [place] [facility] [address] [id number] [place] [address] Sep, [facility] [place] [facility] [address] [id number] [place] [address] Sep, [facility] [place] [facility] [address] [id number] [place] [address] Sep, [facility] [place] [facility] [address] [id number] [place] [address] Sep, [facility] [place] [facility] [address] [id number] [place] [address] Aug, [facility] [place] [facility] [address] [facility] [id number] [place] [address] Aug, [facility] [place] [facility] [address] [id number] [place] [address] Jul, [facility] [place] [facility] [address] [id number] [place] [address] Jul, [facility] [place] [facility] [address] [id number] [place] [address] Jul, [facility] [place] [facility] [address] [facility] [id number] [place] [address] Jul, [facility] [place] [facility] [address] [id number] [place] [address] Jul, [facility] [place] [facility] [address] [id number] [place] [address] Jul, [facility] [place] [facility] [address] [id number] [place] [address] June, [facility] [place] [facility] [address] [id number] [place] [address] June, [facility] [place] [facility] [address] [id number] [place] [address] June, [facility] [place] [facility] [address] [id number] [place] [address] June, [facility] [place] [facility] [address] [id number] [place] [address] June, [facility] [place] [facility] [address] [id number] [place] [address] June, [facility] [place] [facility] [address] [id number] [place] [address] June, [facility] [place] [facility] [address] [id number] [place] [address] June, [facility] [place] [facility] [address] [id number] [place] [address] June, [facility] [place] [facility] [address] [id number] [place] [address] June, [facility] [place] [facility] [address] [facility] [id number] [place] [address] June, [facility] [place] [facility] [address] [facility] [id number] [place] [address] June, [facility] [place] [facility] [address] [id number] [place] [address] June, [facility] [place] [facility] [address] [id number] [place] [address] June, [facility] [place] [facility] [address] [facility] [id number] [place] [address] June, [facility] [place] [facility] [address] [id number] [place] [address] June, [facility] [place] [facility] [address] [id number] [place] [address] May, [facility] [place] [facility] [address] [id number] [place] [address] May, [facility] [place] [facility] [address] [id number] [place] [address] May, [facility] [place] [facility] [address] [id number] [place] [address] May, [facility] [place] [facility] [address] [id number] [place] [address] Apr, [facility] [place] [facility] [address] [id number] [place] [address] Apr, [facility] [place] [facility] [address] [id number] [place] [address] Apr, [facility] [place] [facility] [address] [facility] [id number] [place] [address] Apr, [facility] [place] [facility] [address] [id number] [place] [address] Apr, [facility] [place] [facility] [address] [id number] [place] [address] Apr, [facility] [place] [facility] [address] [id number] [place] [address] Mar, [facility] [place] [facility] [address] [id number] [place] [address] Mar, [facility] [place] [facility] [address] [id number] [place] [address] Mar, [facility] [place] [facility] [address] [id number] [place] [address] Mar, [facility] [place] [facility] [address] [id number] [place] [address] Mar, [facility] [place] [facility] [address] [id number] [place] [address] Feb, [facility] [place] [facility] [address] [id number] [place] [address] Feb, [facility] [place] [facility] [id number] [place] [address] Feb, [facility] [place] [facility] [address] [id number] [place] [address] Feb, [facility] [place] [facility] [address] [id number] [place] [address] Feb, [facility] [place] [facility] [address] [id number] [place] [address] Feb, [facility] [place] [facility] [id number] [place] [address] Jan, [facility] [place] [facility] [address] [id number] [place] [address] Jan, [facility] [place] [facility] [address] [id number] [place] [address] Jan, [facility] [place] [facility] [id number] [place] [address] Jan, [facility] [place] [facility] [address] [id number] [place] [address] Dec, [facility] [place] [facility] [id number] [place] [address] Dec, [facility] [place] [facility] [address] [id number] [place] [address] Dec, [facility] [place] [facility] [address] [id number] [place] [address] Dec, [facility] [place] [facility] [address] [id number] [place] [address] Dec, [facility] [place] [facility] [address] [id number] [place] [address] Dec, [facility] [place] [facility] [address] [id number] [place] [address] Nov, [facility] [place] [facility] [address] [id number] [place] [address] Nov, [facility] [place] [facility] [address] [id number] [place] [address] Nov, [facility] [place] [facility] [address] [id number] [place] [address] Nov, [facility] [place] [facility] [address] [id number] [place] [address] Nov, [facility] [place] [facility] [address] [id number] [place] [address] Nov, [facility] [place] [facility] [address] [id number] [place] [address] Oct, [facility] [place] [facility] [address] [id number] [place] [address] Oct, [facility] [place] [facility] [address] [id number] [place] [address] Sep, [facility] [place] [facility] [address] [id number] [place] [address] Sep, [facility] [place] [facility] [address] [id number] [place] [address] Sep, [facility] [place] [facility] [address] [id number] [place] [address] Sep, [facility] [place] [facility] [address] [id number] [place] [address] Aug, IMMUNIZATIONS No Known Immunizations SOCIAL HISTORY Never Assessed REASON FOR VISIT PLAN OF CARE VITAL SIGNS Height 64 in 2013-04-15 Weight 314 lbs 2013-04-15 Temperature 97.4 degrees Fahrenheit 2013-04-15 Heart Rate 72 bpm 2013-04-15 Respiratory Rate 20 2013-04-15 Blood pressure systolic 128 mmHg 2013-04-15 Blood pressure diastolic 62 mmHg 2013-04-15 MEDICATIONS Unknown Medications RESULTS No Results PROCEDURES Procedure Date Ordered Result Body Site MRI JOINT UPR EXTREM W/O DYE Apr 15, 2013 INSTRUCTIONS MEDICATIONS ADMINISTERED No Known Medications MEDICAL (GENERAL) HISTORY Type Description Date Medical History obesity Medical History arthritis back Medical History RLS Medical History migraines Surgical History cholecystectomy 2005 Surgical History orthopedic surgery- bulging disks at L4/L5 since 2008,bilat hip replacement, bilat knee replacement
--- OUTSIDE RECORDS SUMMARY | 2019-05-20 06:53 | XMS REPORT ---
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 15349656 Problem Edema 782.3 Active 300317540 Problem Pain in joint, shoulder region 719.41 Active 135236653 Problem Lumbago 724.2 Active 571977884 Problem Anxiety state, unspecified 300.00 Act ahmet [id number] ALLERGIES No Information ENCOUNTERS Encounter Location Date Diagnosis [facility] [address] [address] June, [facility] [address] [address] June, [facility] [address] [address] May, [facility] [address] [address] May, Obesity 278.00 and Lumbago 724.2 [facility] [address] [address] May, [facility] [address] [address] May, [facility] [address] [address] Apr, [facility] [address] [address] Apr, [facility] [address] [id number] [place] [address] 18 Apr, 2014 [facility] [place] [facility] [address] [id number] [place] [address] Apr, [facility] [place] [facility] [address] [id number] [place] [address] Apr, [facility] [place] [facility] [address] [id number] [place] [address] Apr, [facility] [place] [facility] [address] [id number] [place] [address] Mar, [facility] [place] [facility] [address] [id number] [place] [address] Mar, [facility] [place] [facility] [address] [id number] [place] [address] Mar, [facility] [place] [facility] [address] [id number] [place] [address] Mar, [facility] [place] [facility] [address] [id number] [place] [address] Mar, [facility] [place] [facility] [address] [id number] [place] [address] Mar, [facility] [place] [facility] [address] [id number] [place] [address] Feb, [facility] [place] [facility] [address] [id number] [place] [address] Feb, [facility] [place] [facility] [address] [id number] [place] [address] Feb, [facility] [place] [facility] [address] [id number] [place] [address] Feb, [facility] [place] [facility] [address] [id number] [place] [address] Feb, [facility] [place] [facility] [address] [id number] [place] [address] Feb, [facility] [place] [facility] [address] [id number] [place] [address] Jan, [facility] [place] [facility] [address] [id number] [place] [address] Jan, [facility] [place] [facility] [address] [id number] [place] [address] Jan, [facility] [place] [facility] [address] [id number] [place] [address] Jan, [facility] [place] [facility] [address] [id number] [place] [address] Jan, [facility] [place] [facility] [address] [id number] [place] [address] Jan, [facility] [place] [facility] [address] [id number] [place] [address] Jan, [facility] [place] [facility] [address] [id number] [place] [address] Jan, [facility] [place] [facility] [address] [id number] [place] [address] Jan, [facility] [place] [facility] [address] [id number] [place] [address] Jan, [facility] [place] [facility] [address] [id number] [place] [address] Jan, [facility] [place] [facility] [address] [id number] [place] [address] Dec, [facility] [place] [facility] [address] [id number] [place] [address] Dec, [facility] [place] [facility] [address] [id number] [place] [address] Dec, [facility] [place] [facility] [address] [id number] [place] [address] Dec, [facility] [place] [facility] [address] [id number] [place] [address] Dec, [facility] [place] [facility] [address] [id number] [place] [address] Dec, [facility] [place] [facility] [address] [id number] [place] [address] Nov, [facility] [place] [facility] [id number] [place] [address] Nov, [facility] [place] [facility] [address] [id number] [place] [address] Nov, [facility] [place] [facility] [address] [id number] [place] [address] Nov, [facility] [place] [facility] [address] [id number] [place] [address] Nov, [facility] [place] [facility] [address] [id number] [place] [address] Nov, [facility] [place] [facility] [address] [id number] [place] [address] Oct, [facility] [place] [facility] [address] [id number] [place] [address] Oct, [facility] [place] [facility] [address] [id number] [place] [address] Oct, [facility] [place] [facility] [address] [id number] [place] [address] Oct, [facility] [place] [facility] [address] [id number] [place] [address] Oct, [facility] [place] [facility] [address] [id number] [place] [address] Oct, [facility] [place] [facility] [address] [id number] [place] [address] Sep, [facility] [place] [facility] [address] [id number] [place] [address] Sep, [facility] [place] [facility] [address] [id number] [place] [address] Sep, [facility] [place] [facility] [address] [id number] [place] [address] Sep, [facility] [place] [facility] [address] [id number] [place] [address] Aug, [facility] [place] [facility] [address] [facility] [id number] [place] [address] Aug, [facility] [place] [facility] [address] [id number] [place] [address] Jul, [facility] [place] [facility] [address] [id number] [place] [address] Jul, [facility] [place] [facility] [address] [id number] [place] [address] Jul, [facility] [place] [facility] [address] [facility] [id number] [place] [address] Jul, [facility] [place] [facility] [address] [id number] [place] [address] Jul, [facility] [place] [facility] [address] [id number] [place] [address] Jul, [facility] [place] [facility] [address] [id number] [place] [address] June, [facility] [place] [facility] [address] [id number] [place] [address] June, [facility] [place] [facility] [address] [id number] [place] [address] June, [facility] [place] [facility] [address] [id number] [place] [address] June, [facility] [place] [facility] [address] [id number] [place] [address] June, [facility] [place] [facility] [address] [id number] [place] [address] June, [facility] [place] [facility] [address] [id number] [place] [address] June, [facility] [place] [facility] [address] [id number] [place] [address] June, [facility] [place] [facility] [address] [id number] [place] [address] June, [facility] [place] [facility] [address] [id number] [place] [address] June, [facility] [place] [facility] [address] [facility] [id number] [place] [address] June, [facility] [place] [facility] [address] [facility] [id number] [place] [address] June, [facility] [place] [facility] [address] [id number] [place] [address] June, [facility] [place] [facility] [address] [id number] [place] [address] June, [facility] [place] [facility] [address] [facility] [id number] [place] [address] June, [facility] [place] [facility] [address] [id number] [place] [address] June, [facility] [place] [facility] [address] [id number] [place] [address] May, [facility] [place] [facility] [address] [id number] [place] [address] May, [facility] [place] [facility] [address] [id number] [place] [address] May, [facility] [place] [facility] [address] [id number] [place] [address] May, [facility] [place] [facility] [address] [id number] [place] [address] Apr, [facility] [place] [facility] [address] [id number] [place] [address] Apr, [facility] [place] [facility] [address] [id number] [place] [address] Apr, [facility] [place] [facility] [address] [facility] [id number] [place] [address] Apr, [facility] [place] [facility] [address] [id number] [place] [address] Apr, [facility] [place] [facility] [address] [id number] [place] [address] Apr, [facility] [place] [facility] [address] [id number] [place] [address] Mar, [facility] [place] [facility] [address] [id number] [place] [address] Mar, [facility] [place] [facility] [address] [id number] [place] [address] Mar, [facility] [place] [facility] [address] [id number] [place] [address] Mar, [facility] [place] [facility] [address] [id number] [place] [address] Mar, [facility] [place] [facility] [address] [id number] [place] [address] Feb, [facility] [place] [facility] [address] [id number] [place] [address] Feb, [facility] [place] [facility] [id number] [place] [address] Feb, [facility] [place] [facility] [address] [id number] [place] [address] Feb, [facility] [place] [facility] [address] [id number] [place] [address] Feb, [facility] [place] [facility] [address] [id number] [place] [address] Feb, [facility] [place] [facility] [id number] [place] [address] Jan, [facility] [place] [facility] [address] [id number] [place] [address] Jan, [facility] [place] [facility] [address] [id number] [place] [address] Jan, [facility] [place] [facility] [id number] [place] [address] Jan, [facility] [place] [facility] [address] [id number] [place] [address] Dec, [facility] [place] [facility] [id number] [place] [address] Dec, [facility] [place] [facility] [address] [id number] [place] [address] Dec, [facility] [place] [facility] [address] [id number] [place] [address] Dec, [facility] [place] [facility] [address] [id number] [place] [address] Dec, [facility] [place] [facility] [address] [id number] [place] [address] Dec, [facility] [place] [facility] [address] [id number] [place] [address] Nov, [facility] [place] [facility] [address] [id number] [place] [address] Nov, [facility] [place] [facility] [address] [id number] [place] [address] Nov, [facility] [place] [facility] [address] [id number] [place] [address] Nov, [facility] [place] [facility] [address] [id number] [place] [address] Nov, [facility] [place] [facility] [address] [id number] [place] [address] Nov, [facility] [place] [facility] [address] [id number] [place] [address] Oct, [facility] [place] [facility] [address] [id number] [place] [address] Oct, [facility] [place] [facility] [address] [id number] [place] [address] Sep, [facility] [place] [facility] [address] [id number] [place] [address] Sep, [facility] [place] [facility] [address] [id number] [place] [address] Sep, [facility] [place] [facility] [address] [id number] [place] [address] Sep, [facility] [place] [facility] [address] [id number] [place] [address] Aug, IMMUNIZATIONS No Known Immunizations SOCIAL HISTORY [...]
--- OUTSIDE RECORDS SUMMARY | 2019-05-20 06:53 | XMS REPORT ---
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 76220034 Problem Edema 782.3 Active 051776032 Problem Pain in joint, shoulder region 719.41 Active 660367643 Problem Lumbago 724.2 Active 676702428 Problem Anxiety state, unspecified 300.00 Act ahmet [id number] ALLERGIES No Information ENCOUNTERS Encounter Location Date Diagnosis [facility] [address] [address] June, [facility] [address] [address] June, [facility] [address] [address] May, [facility] [address] [address] 28 May, 2014 Obesity 278.00 and Lumbago 724.2 [facility] [address] [address] May, [facility] [address] [address] May, [facility] [address] [address] Apr, [facility] [address] [place] [address] 18 Apr, 2014 [facility] [address] [facility] [id number] [place] [address] Apr, [facility] [address] [id number] [place] [address] Apr, [facility] [address] [id number] [place] [address] Apr, [facility] [address] [id number] [place] [address] Apr, [facility] [address] [id number] [place] [address] Mar, [facility] [address] [id number] [place] [address] Mar, [facility] [address] [id number] [place] [address] Mar, [facility] [address] [id number] [place] [address] Mar, [facility] [address] [id number] [place] [address] Mar, [facility] [address] [id number] [place] [address] Mar, [facility] [address] [id number] [place] [address] Feb, [facility] [address] [id number] [place] [address] Feb, [facility] [address] [id number] [place] [address] Feb, [facility] [address] [id number] [place] [address] Feb, [facility] [address] [id number] [place] [address] Feb, [facility] [address] [id number] [place] [address] Feb, [facility] [address] [id number] [place] [address] Jan, [facility] [address] [id number] [place] [address] Jan, [facility] [address] [id number] [place] [address] Jan, [facility] [address] [id number] [place] [address] Jan, [facility] [address] [id number] [place] [address] Jan, [facility] [address] [id number] [place] [address] Jan, [facility] [address] [id number] [place] [address] Jan, [facility] [address] [id number] [place] [address] Jan, [facility] [address] [id number] [place] [address] Jan, [facility] [address] [id number] [place] [address] Jan, [facility] [address] [id number] [place] [address] Jan, [facility] [address] [id number] [place] [address] Dec, [facility] [address] [id number] [place] [address] Dec, [facility] [address] [id number] [place] [address] Dec, [facility] [address] [id number] [place] [address] Dec, [facility] [address] [id number] [place] [address] Dec, [facility] [address] [id number] [place] [address] Dec, [facility] [address] [facility] [id number] [place] [address] Nov, [facility] [address] [facility] [id number] [place] [address] Nov, [facility] [address] [id number] [place] [address] Nov, [facility] [address] [id number] [place] [address] Nov, [facility] [address] [facility] [id number] [place] [address] Nov, [facility] [address] [id number] [place] [address] Nov, [facility] [address] [id number] [place] [address] Oct, [facility] [address] [id number] [place] [address] Oct, [facility] [address] [id number] [place] [address] Oct, [facility] [address] [id number] [place] [address] Oct, [facility] [address] [id number] [place] [address] Oct, [facility] [address] [id number] [place] [address] Oct, 2013 [facility] [address] [id number] [place] [address] Sep, [facility] [address] [id number] [place] [address] Sep, [facility] [address] [id number] [place] [address] Sep, [facility] [address] [id number] [place] [address] Sep, [facility] [address] [facility] [id number] [place] [address] Aug, [facility] [address] [facility] [id number] [place] [address] Aug, [facility] [address] [facility] [id number] [place] [address] Jul, [facility] [address] [id number] [place] [address] Jul, [facility] [address] [facility] [id number] [place] [address] Jul, [facility] [address] [id number] [place] [address] Jul, [facility] [address] [id number] [place] [address] Jul, [facility] [address] [id number] [place] [address] Jul, [facility] [address] [id number] [place] [address] June, [facility] [address] [id number] [place] [address] June, [facility] [address] [id number] [place] [address] June, [facility] [address] [id number] [place] [address] June, [facility] [address] [id number] [place] [address] June, [facility] [address] [facility] [id number] [place] [address] June, [facility] [address] [id number] [place] [address] June, [facility] [address] [id number] [place] [address] June, [facility] [address] [id number] [place] [address] June, [facility] [address] [id number] [place] [address] June, [facility] [address] [id number] [place] [address] June, [facility] [address] [id number] [place] [address] June, [facility] [address] [id number] [place] [address] June, [facility] [address] [facility] [id number] [place] [address] June, [facility] [address] [id number] [place] [address] June, [facility] [address] [id number] [place] [address] June, [facility] [address] [id number] [place] [address] May, [facility] [address] [id number] [place] [address] May, [facility] [address] [id number] [place] [address] May, [facility] [address] [id number] [place] [address] May, [facility] [address] [id number] [place] [address] Apr, [facility] [address] [id number] [place] [address] Apr, [facility] [address] [id number] [place] [address] Apr, [facility] [address] [id number] [place] [address] Apr, [facility] [address] [id number] [place] [address] Apr, [facility] [address] [id number] [place] [address] Apr, [facility] [address] [facility] [id number] [place] [address] Mar, [facility] [address] [id number] [place] [address] Mar, [facility] [address] [id number] [place] [address] Mar, [facility] [address] [id number] [place] [address] Mar, [facility] [address] [id number] [place] [address] Mar, [facility] [address] [id number] [place] [address] Feb, [facility] [address] [id number] [place] [address] Feb, [facility] [address] [id number] [place] [address] Feb, [facility] [address] [id number] [place] [address] Feb, [facility] [address] [id number] [place] [address] Feb, [facility] [address] [id number] [place] [address] Feb, [facility] [address] [id number] [place] [address] Jan, [facility] [address] [id number] [place] [address] Jan, [facility] [address] [id number] [place] [address] Jan, [facility] [address] [id number] [place] [address] Jan, [facility] [address] [id number] [place] [address] Dec, [facility] [address] [id number] [place] [address] Dec, [facility] [address] [id number] [place] [address] Dec, [facility] [address] [id number] [place] [address] Dec, [facility] [address] [id number] [place] [address] Dec, [facility] [address] [id number] [place] [address] Dec, [facility] [address] [id number] [place] [address] Nov, [facility] [address] [id number] [place] [address] Nov, [facility] [address] [id number] [place] [address] Nov, [facility] [address] [id number] [place] [address] Nov, [facility] [address] [id number] [place] [address] Nov, [facility] [address] [id number] [place] [address] Nov, [facility] [address] [id number] [place] [address] Oct, [facility] [address] [id number] [place] [address] Oct, [facility] [address] [id number] [place] [address] Sep, [facility] [address] [id number] [place] [address] Sep, [facility] [address] [id number] [place] [address] Sep, [facility] [address] [id number] [place] [address] Sep, [facility] [address] [facility] [id number] [place] [address] Aug, IMMUNIZATIONS No Known Immunizations SOCIAL HISTORY [...]
--- OUTSIDE RECORDS SUMMARY | 2019-05-20 06:53 | XMS REPORT ---
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 07681621 Problem Edema 782.3 Active 737528540 Problem Pain in joint, shoulder region 719.41 Active 562007211 Problem Lumbago 724.2 Active 554075936 Problem Anxiety state, unspecified 300.00 Act ahmet [id number] ALLERGIES No Information ENCOUNTERS Encounter Location Date Diagnosis [facility] [address] [address] June, [facility] [address] [address] June, [facility] [address] [address] May, [facility] [address] [address] May, Obesity 278.00 and Lumbago 724.2 [facility] [address] [address] May, [facility] [address] [address] May, [facility] [address] [address] Apr, [facility] [address] [id number] [place] [address] Apr, [facility] [address] [id number] [place] [address] Apr, [facility] [address] [id number] [place] [address] Apr, [facility] [address] [id number] [place] [address] Apr, [facility] [address] [id number] [place] [address] Apr, [facility] [address] [id number] [place] [address] Mar, [facility] [address] [id number] [place] [address] Mar, [facility] [address] [id number] [place] [address] Mar, [facility] [address] [id number] [place] [address] Mar, [facility] [address] [id number] [place] [address] Mar, [facility] [address] [id number] [place] [address] Mar, [facility] [address] [id number] [place] [address] Feb, [facility] [address] [id number] [place] [address] Feb, [facility] [address] [id number] [place] [address] Feb, [facility] [address] [id number] [place] [address] Feb, [facility] [address] [id number] [place] [address] Feb, [facility] [address] [id number] [place] [address] Feb, [facility] [address] [id number] [place] [address] Jan, [facility] [address] [id number] [place] [address] Jan, [facility] [address] [id number] [place] [address] Jan, [facility] [address] [id number] [place] [address] Jan, [facility] [address] [id number] [place] [address] Jan, [facility] [address] [id number] [place] [address] Jan, [facility] [address] [id number] [place] [address] Jan, [facility] [address] [id number] [place] [address] Jan, [facility] [address] [id number] [place] [address] Jan, [facility] [address] [id number] [place] [address] Jan, [facility] [address] [id number] [place] [address] Jan, [facility] [address] [id number] [place] [address] Dec, [facility] [address] [id number] [place] [address] Dec, [facility] [address] [id number] [place] [address] Dec, [facility] [address] [id number] [place] [address] Dec, [facility] [address] [id number] [place] [address] Dec, [facility] [address] [id number] [place] [address] Dec, [facility] [address] [facility] [id number] [place] [address] Nov, [facility] [address] [facility] [id number] [place] [address] Nov, [facility] [address] [id number] [place] [address] Nov, [facility] [address] [id number] [place] [address] Nov, [facility] [address] [id number] [place] [address] Nov, [facility] [address] [id number] [place] [address] Nov, [facility] [address] [id number] [place] [address] Oct, [facility] [address] [id number] [place] [address] Oct, [facility] [address] [id number] [place] [address] Oct, [facility] [address] [id number] [place] [address] Oct, [facility] [address] [id number] [place] [address] Oct, [facility] [address] [id number] [place] [address] Oct, [facility] [address] [id number] [place] [address] Sep, [facility] [address] [id number] [place] [address] Sep, [facility] [address] [id number] [place] [address] Sep, [facility] [address] [id number] [place] [address] Sep, [facility] [address] [id number] [place] [address] Aug, [facility] [address] [id number] [place] [address] Aug, [facility] [address] [id number] [place] [address] Jul, [facility] [address] [id number] [place] [address] Jul, [facility] [address] [facility] [id number] [place] [address] Jul, [facility] [address] [id number] [place] [address] Jul, [facility] [address] [id number] [place] [address] Jul, [facility] [address] [id number] [place] [address] Jul, [facility] [address] [id number] [place] [address] June, [facility] [address] [id number] [place] [address] June, [facility] [address] [id number] [place] [address] June, [facility] [address] [id number] [place] [address] June, [facility] [address] [id number] [place] [address] June, [facility] [address] [id number] [place] [address] June, [facility] [address] [id number] [place] [address] June, [facility] [address] [id number] [place] [address] June, [facility] [address] [id number] [place] [address] June, [facility] [address] [id number] [facility] [address] June, [facility] [address] [id number] [place] [address] June, [facility] [address] [id number] [facility] [address] June, [facility] [address] [id number] [facility] [address] June, [facility] [address] [id number] [facility] [address] June, [facility] [address] [id number] [place] [address] June, [facility] [address] [id number] [place] [address] June, [facility] [address] [id number] [place] [address] May, [facility] [address] [id number] [place] [address] May, [facility] [address] [id number] [place] [address] May, [facility] [address] [id number] [place] [address] May, [facility] [address] [id number] [place] [address] Apr, [facility] [address] [id number] [facility] [address] Apr, [facility] [address] [id number] [place] [address] Apr, [facility] [address] [id number] [place] [address] Apr, [facility] [address] [id number] [place] [address] Apr, [facility] [address] [id number] [place] [address] Apr, [facility] [address] [id number] [place] [address] Mar, [facility] [address] [id number] [place] [address] Mar, [facility] [address] [id number] [place] [address] Mar, [facility] [address] [id number] [place] [address] Mar, [facility] [address] [id number] [place] [address] Mar, [facility] [address] [id number] [place] [address] Feb, [facility] [address] [id number] [place] [address] Feb, [facility] [address] [id number] [place] [address] Feb, [facility] [address] [id number] [place] [address] Feb, [facility] [address] [id number] [place] [address] Feb, [facility] [address] [id number] [place] [address] Feb, [facility] [address] [id number] [place] [address] Jan, [facility] [address] [id number] [place] [address] Jan, [facility] [address] [id number] [place] [address] Jan, [facility] [address] [id number] [place] [address] Jan, [facility] [address] [id number] [place] [address] Dec, [facility] [address] [facility] [id number] [place] [address] Dec, [facility] [address] [facility] [id number] [place] [address] Dec, [facility] [address] [id number] [place] [address] Dec, [facility] [address] [id number] [place] [address] Dec, [facility] [address] [facility] [id number] [place] [address] Dec, [facility] [address] [id number] [place] [address] Nov, [facility] [address] [id number] [place] [address] Nov, [facility] [address] [id number] [place] [address] Nov, [facility] [address] [facility] [id number] [place] [address] Nov, [facility] [address] [id number] [place] [address] Nov, [facility] [address] [id number] [place] [address] Nov, [facility] [address] [id number] [place] [address] Oct, [facility] [address] [facility] [id number] [place] [address] Oct, [facility] [address] [facility] [id number] [place] [address] Sep, [facility] [address] [facility] [id number] [place] [address] Sep, [facility] [address] [id number] [place] [address] Sep, [facility] [address] [id number] [place] [address] Sep, [facility] [address] [facility] [id number] [place] [address] Aug, IMMUNIZATIONS No Known Immunizations SOCIAL HISTORY Never Assessed REASON FOR VISIT PLAN OF CARE VITAL SIGNS MEDICATIONS Unknown Medications RESULTS No Results PROCEDURES Procedure Date Ordered Result Body Site X-RAY EXAM OF SHOULDER July 08, 2013 INSTRUCTIONS MEDICATIONS ADMINISTERED No Known Medications MEDICAL (GENERAL) HISTORY Type Description Date Medical History obesity Medical History arthritis back Medical History RLS Medical History migraines Surgical History cholecystectomy 2005 Surgical History orthopedic surgery- bulging disks at L4/L5 since 2008,bilat hip replacement, bilat knee replacement
--- OUTSIDE RECORDS SUMMARY | 2019-05-20 06:53 | XMS REPORT ---
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 52101493 Problem Edema 782.3 Active 526714023 Problem Pain in joint, shoulder region 719.41 Active 654347387 Problem Lumbago 724.2 Active 222674321 Problem Anxiety state, unspecified 300.00 Act ahmet [id number] ALLERGIES No Information ENCOUNTERS Encounter Location Date Diagnosis [facility] [address] [address] June, [facility] [address] [address] June, [facility] [address] [address] May, [facility] [address] [address] May, Obesity 278.00 and Lumbago 724.2 [facility] [address] [address] May, [facility] [address] [address] May, [facility] [address] [address] Apr, [facility] [address] [id number] [place] [address] Apr, [facility] [address] [id number] [place] [address] Apr, [facility] [address] [id number] [place] [address] Apr, [facility] [address] [id number] [place] [address] Apr, [facility] [address] [id number] [place] [address] Apr, [facility] [address] [id number] [place] [address] Mar, [facility] [address] [id number] [place] [address] Mar, [facility] [address] [id number] [place] [address] Mar, [facility] [address] [id number] [place] [address] Mar, [facility] [address] [id number] [place] [address] Mar, [facility] [address] [id number] [place] [address] Mar, [facility] [address] [id number] [place] [address] Feb, [facility] [address] [id number] [place] [address] Feb, [facility] [address] [id number] [place] [address] Feb, [facility] [address] [id number] [place] [address] Feb, [facility] [address] [id number] [place] [address] Feb, [facility] [address] [id number] [place] [address] Feb, [facility] [address] [id number] [place] [address] Jan, [facility] [address] [id number] [place] [address] Jan, [facility] [address] [id number] [place] [address] Jan, [facility] [address] [id number] [place] [address] Jan, [facility] [address] [id number] [place] [address] Jan, [facility] [address] [id number] [place] [address] Jan, [facility] [address] [id number] [place] [address] Jan, [facility] [address] [id number] [place] [address] Jan, [facility] [address] [id number] [place] [address] Jan, [facility] [address] [id number] [place] [address] Jan, [facility] [address] [id number] [place] [address] Jan, [facility] [address] [id number] [place] [address] Dec, [facility] [address] [id number] [place] [address] Dec, [facility] [address] [id number] [place] [address] Dec, [facility] [address] [id number] [place] [address] Dec, [facility] [address] [id number] [place] [address] Dec, [facility] [address] [id number] [place] [address] Dec, [facility] [address] [facility] [id number] [place] [address] Nov, [facility] [address] [facility] [id number] [place] [address] Nov, [facility] [address] [id number] [place] [address] Nov, [facility] [address] [id number] [place] [address] Nov, [facility] [address] [id number] [place] [address] Nov, [facility] [address] [id number] [place] [address] Nov, [facility] [address] [id number] [place] [address] Oct, [facility] [address] [id number] [place] [address] Oct, [facility] [address] [id number] [place] [address] Oct, [facility] [address] [id number] [place] [address] Oct, [facility] [address] [id number] [place] [address] Oct, [facility] [address] [id number] [place] [address] Oct, [facility] [address] [id number] [place] [address] Sep, [facility] [address] [id number] [place] [address] Sep, [facility] [address] [id number] [place] [address] Sep, [facility] [address] [id number] [place] [address] Sep, [facility] [address] [id number] [place] [address] Aug, [facility] [address] [id number] [place] [address] Aug, [facility] [address] [id number] [place] [address] Jul, [facility] [address] [id number] [place] [address] Jul, [facility] [address] [facility] [id number] [place] [address] Jul, [facility] [address] [id number] [place] [address] Jul, [facility] [address] [id number] [place] [address] Jul, [facility] [address] [id number] [place] [address] Jul, [facility] [address] [id number] [place] [address] June, [facility] [address] [id number] [place] [address] June, [facility] [address] [id number] [place] [address] June, [facility] [address] [id number] [place] [address] June, [facility] [address] [id number] [place] [address] June, [facility] [address] [id number] [place] [address] June, [facility] [address] [id number] [place] [address] June, [facility] [address] [id number] [place] [address] June, [facility] [address] [id number] [place] [address] June, [facility] [address] [id number] [facility] [place] [address] June, [facility] [address] [id number] [place] [address] June, [facility] [address] [id number] [facility] [place] [address] June, [facility] [address] [id number] [facility] [place] [address] June, [facility] [address] [id number] [facility] [place] [address] June, [facility] [address] [id number] [place] [address] June, [facility] [address] [id number] [place] [address] June, [facility] [address] [id number] [place] [address] May, [facility] [address] [id number] [place] [address] May, [facility] [address] [id number] [place] [address] May, [facility] [address] [id number] [place] [address] May, [facility] [address] [id number] [place] [address] Apr, [facility] [address] [id number] [facility] [place] [address] Apr, [facility] [address] [id number] [place] [address] Apr, [facility] [address] [id number] [place] [address] Apr, [facility] [address] [id number] [place] [address] Apr, [facility] [address] [id number] [place] [address] Apr, [facility] [address] [id number] [place] [address] Mar, [facility] [address] [id number] [place] [address] Mar, [facility] [address] [id number] [place] [address] Mar, [facility] [address] [id number] [place] [address] Mar, [facility] [address] [id number] [place] [address] Mar, [facility] [address] [id number] [place] [address] Feb, [facility] [address] [id number] [place] [address] Feb, [facility] [address] [id number] [place] [address] Feb, [facility] [address] [id number] [place] [address] Feb, [facility] [address] [id number] [place] [address] Feb, [facility] [address] [id number] [place] [address] Feb, [facility] [address] [id number] [place] [address] Jan, [facility] [address] [id number] [place] [address] Jan, [facility] [address] [id number] [place] [address] Jan, [facility] [address] [id number] [place] [address] Jan, [facility] [address] [id number] [place] [address] Dec, [facility] [address] [facility] [id number] [place] [address] Dec, [facility] [address] [facility] [id number] [place] [address] Dec, [facility] [address] [id number] [place] [address] Dec, [facility] [address] [id number] [place] [address] Dec, [facility] [address] [facility] [id number] [place] [address] Dec, [facility] [address] [id number] [place] [address] Nov, [facility] [address] [id number] [place] [address] Nov, [facility] [address] [id number] [place] [address] Nov, [facility] [address] [facility] [id number] [place] [address] Nov, [facility] [address] [id number] [place] [address] Nov, [facility] [address] [id number] [place] [address] Nov, [facility] [address] [id number] [place] [address] Oct, [facility] [address] [facility] [id number] [place] [address] Oct, [facility] [address] [facility] [id number] [place] [address] Sep, [facility] [address] [facility] [id number] [place] [address] Sep, [facility] [address] [id number] [place] [address] Sep, [facility] [address] [id number] [place] [address] Sep, [facility] [address] [facility] [id number] [place] [address] Aug, IMMUNIZATIONS No Known Immunizations SOCIAL HISTORY [...]
--- OUTSIDE RECORDS SUMMARY | 2019-05-20 06:53 | XMS REPORT ---
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 61189175 Problem Edema 782.3 Active 115264678 Problem Pain in joint, shoulder region 719.41 Active 035929012 Problem Lumbago 724.2 Active 710733535 Problem Anxiety state, unspecified 300.00 Act ahmet [id number] ALLERGIES No Information ENCOUNTERS Encounter Location Date Diagnosis [place] [address] [address] June, [facility] [address] [address] June, [facility] [address] [address] 29 May, 2014 [facility] [address] [address] May, Obesity 278.00 and Lumbago 724.2 [facility] [address] [address] May, [facility] [address] [address] May, [facility] [address] [address] Apr, [facility] [address] [id number] [place] [address] 18 Apr, 2014 [facility] [place] [facility] [address] [id number] [place] [address] Apr, [facility] [place] [facility] [address] [id number] [place] [address] Apr, [facility] [place] [facility] [address] [id number] [place] [address] Apr, [facility] [place] [facility] [address] [id number] [place] [address] Apr, [facility] [place] [facility] [address] [id number] [place] [address] Mar, [facility] [place] [facility] [address] [id number] [place] [address] Mar, 2014 [facility] [place] [facility] [address] [id number] [place] [address] Mar, [facility] [place] [facility] [address] [id number] [place] [address] Mar, [facility] [place] [facility] [address] [id number] [place] [address] Mar, [facility] [place] [facility] [address] [id number] [place] [address] Mar, [facility] [place] [facility] [address] [id number] [place] [address] Feb, [facility] [place] [facility] [address] [id number] [place] [address] Feb, [facility] [place] [facility] [address] [id number] [place] [address] Feb, [facility] [place] [facility] [address] [id number] [place] [address] Feb, [facility] [place] [facility] [address] [id number] [place] [address] Feb, [facility] [place] [facility] [address] [id number] [place] [address] Feb, [facility] [place] [facility] [address] [id number] [place] [address] Jan, [facility] [place] [facility] [address] [id number] [place] [address] Jan, [facility] [place] [facility] [address] [id number] [place] [address] Jan, [facility] [place] [facility] [address] [id number] [place] [address] Jan, [facility] [place] [facility] [address] [id number] [place] [address] Jan, [facility] [place] [facility] [address] [id number] [place] [address] Jan, [facility] [place] [facility] [address] [id number] [place] [address] Jan, [facility] [place] [facility] [address] [id number] [place] [address] Jan, [facility] [place] [facility] [address] [id number] [place] [address] Jan, [facility] [place] [facility] [address] [id number] [place] [address] Jan, [facility] [place] [facility] [address] [id number] [place] [address] Jan, [facility] [place] [facility] [address] [id number] [place] [address] Dec, [facility] [place] [facility] [address] [id number] [place] [address] Dec, [facility] [place] [facility] [address] [id number] [place] [address] Dec, [facility] [place] [facility] [address] [id number] [place] [address] Dec, [facility] [place] [facility] [address] [id number] [place] [address] Dec, [facility] [place] [facility] [address] [id number] [place] [address] Dec, [facility] [place] [facility] [address] [facility] [id number] [place] [address] Nov, [facility] [place] [facility] [address] [id number] [place] [address] Nov, [facility] [place] [facility] [address] [id number] [place] [address] Nov, [facility] [place] [facility] [address] [id number] [place] [address] Nov, [facility] [place] [facility] [address] [id number] [place] [address] Nov, [facility] [place] [facility] [address] [id number] [place] [address] Nov, [facility] [place] [facility] [address] [id number] [place] [address] Oct, [facility] [place] [facility] [address] [id number] [place] [address] Oct, [facility] [place] [facility] [address] [id number] [place] [address] Oct, [facility] [place] [facility] [address] [id number] [place] [address] Oct, [facility] [place] [facility] [address] [id number] [place] [address] Oct, [facility] [place] [facility] [address] [id number] [place] [address] Oct, [facility] [place] [facility] [address] [id number] [place] [address] Sep, [facility] [place] [facility] [address] [id number] [place] [address] Sep, [facility] [place] [facility] [address] [id number] [place] [address] Sep, [facility] [place] [facility] [address] [id number] [place] [address] Sep, [facility] [place] [facility] [address] [id number] [place] [address] Aug, [facility] [place] [facility] [address] [id number] [place] [address] Aug, [facility] [place] [facility] [address] [id number] [place] [address] Jul, [facility] [place] [facility] [address] [id number] [place] [address] Jul, [facility] [place] [facility] [address] [id number] [place] [address] Jul, [facility] [place] [facility] [address] [id number] [place] [address] Jul, [facility] [place] [facility] [address] [id number] [place] [address] Jul, [facility] [place] [facility] [address] [id number] [place] [address] Jul, [facility] [place] [facility] [address] [id number] [place] [address] June, [facility] [place] [facility] [address] [id number] [place] [address] June, [facility] [place] [facility] [address] [id number] [place] [address] June, [facility] [place] [facility] [address] [id number] [place] [address] June, [facility] [place] [facility] [address] [id number] [place] [address] June, [facility] [place] [facility] [address] [id number] [place] [address] June, [facility] [place] [facility] [address] [id number] [place] [address] June, [facility] [place] [facility] [address] [id number] [place] [address] June, [facility] [place] [facility] [address] [id number] [place] [address] June, [facility] [place] [facility] [address] [facility] [id number] [place] [address] June, [facility] [place] [facility] [address] [facility] [id number] [place] [address] June, [facility] [place] [facility] [address] [id number] [place] [address] June, [facility] [place] [facility] [address] [id number] [place] [address] June, [facility] [place] [facility] [address] [facility] [id number] [place] [address] June, [facility] [place] [facility] [address] [id number] [place] [address] June, [facility] [place] [facility] [address] [id number] [place] [address] June, [facility] [place] [facility] [address] [id number] [place] [address] May, [facility] [place] [facility] [address] [facility] [id number] [place] [address] May, [facility] [place] [facility] [address] [id number] [place] [address] May, [facility] [place] [facility] [address] [id number] [place] [address] May, [facility] [place] [facility] [address] [id number] [place] [address] Apr, [facility] [place] [facility] [address] [facility] [id number] [place] [address] Apr, [facility] [place] [facility] [address] [id number] [place] [address] Apr, [facility] [place] [facility] [address] [id number] [place] [address] Apr, [facility] [place] [facility] [address] [id number] [place] [address] Apr, [facility] [place] [facility] [address] [id number] [place] [address] Apr, [facility] [place] [facility] [address] [id number] [place] [address] Mar, [facility] [place] [facility] [address] [id number] [place] [address] Mar, [facility] [place] [facility] [address] [id number] [place] [address] Mar, [facility] [place] [facility] [address] [id number] [place] [address] Mar, [facility] [place] [facility] [address] [id number] [place] [address] Mar, [facility] [place] [facility] [address] [id number] [place] [address] Feb, [facility] [place] [facility] [address] [id number] [place] [address] Feb, [facility] [place] [facility] [address] [id number] [place] [address] Feb, [facility] [place] [facility] [address] [id number] [place] [address] Feb, [facility] [place] [facility] [address] [id number] [place] [address] Feb, [facility] [place] [facility] [address] [id number] [place] [address] Feb, [facility] [place] [facility] [address] [id number] [place] [address] Jan, [facility] [place] [facility] [address] [id number] [place] [address] Jan, [facility] [place] [facility] [address] [place] [id number] [place] [address] Jan, [facility] [place] [facility] [address] [id number] [place] [address] Jan, [facility] [place] [facility] [address] [place] [id number] [place] [address] Dec, [facility] [place] [facility] [address] [id number] [place] [address] Dec, [facility] [place] [facility] [address] [id number] [place] [address] Dec, [facility] [place] [facility] [address] [id number] [place] [address] Dec, [facility] [place] [facility] [address] [id number] [place] [address] Dec, [facility] [place] [facility] [address] [id number] [place] [address] Dec, [facility] [place] [facility] [address] [id number] [place] [address] Nov, [facility] [place] [facility] [address] [id number] [place] [address] Nov, [facility] [place] [facility] [address] [id number] [place] [address] Nov, [facility] [place] [facility] [address] [id number] [place] [address] Nov, [facility] [place] [facility] [address] [id number] [place] [address] Nov, [facility] [place] [facility] [address] [id number] [place] [address] Nov, [facility] [place] [facility] [address] [id number] [place] [address] Oct, [facility] [place] [facility] [address] [id number] [place] [address] Oct, [facility] [place] [facility] [address] [id number] [place] [address] Sep, [facility] [place] [facility] [address] [id number] [place] [address] Sep, [facility] [place] [facility] [address] [id number] [place] [address] Sep, [facility] [place] [facility] [address] [id number] [place] [address] Sep, [facility] [address] [facility] [id number] [place] [address] Aug, IMMUNIZATIONS No Known Immunizations SOCIAL HISTORY [...]
--- OUTSIDE RECORDS SUMMARY | 2019-05-20 06:53 | XMS REPORT ---
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 56349512 Problem Edema 782.3 Active 485838306 Problem Pain in joint, shoulder region 719.41 Active 552625452 Problem Lumbago 724.2 Active 230917991 Problem Anxiety state, unspecified 300.00 Act ahmet [id number] ALLERGIES No Information ENCOUNTERS Encounter Location Date Diagnosis [facility] [address] [address] June, [facility] [address] [address] June, [facility] [address] [address] May, [facility] [address] [address] May, Obesity 278.00 and Lumbago 724.2 [facility] [address] [address] May, [facility] [address] [address] May, [facility] [address] [address] Apr, [facility] [address] [place] [address] 18 Apr, 2014 [facility] [address] [facility] [id number] [place] [address] Apr, [facility] [address] [id number] [place] [address] Apr, [facility] [address] [id number] [place] [address] Apr, [facility] [address] [id number] [place] [address] Apr, [facility] [address] [id number] [place] [address] Mar, [facility] [address] [id number] [place] [address] Mar, [facility] [address] [id number] [place] [address] Mar, [facility] [address] [id number] [place] [address] Mar, [facility] [address] [id number] [place] [address] Mar, [facility] [address] [id number] [place] [address] Mar, [facility] [address] [id number] [place] [address] Feb, [facility] [address] [id number] [place] [address] Feb, [facility] [address] [id number] [place] [address] Feb, [facility] [address] [id number] [place] [address] Feb, [facility] [address] [id number] [place] [address] Feb, [facility] [address] [id number] [place] [address] Feb, [facility] [address] [id number] [place] [address] Jan, [facility] [address] [id number] [place] [address] Jan, [facility] [address] [id number] [place] [address] Jan, [facility] [address] [id number] [place] [address] Jan, [facility] [address] [id number] [place] [address] Jan, [facility] [address] [id number] [place] [address] Jan, [facility] [address] [id number] [place] [address] Jan, [facility] [address] [id number] [place] [address] Jan, [facility] [address] [id number] [place] [address] Jan, [facility] [address] [id number] [place] [address] Jan, [facility] [address] [id number] [place] [address] Jan, [facility] [address] [id number] [place] [address] Dec, [facility] [address] [id number] [place] [address] Dec, [facility] [address] [id number] [place] [address] Dec, [facility] [address] [id number] [place] [address] Dec, [facility] [address] [id number] [place] [address] Dec, [facility] [address] [id number] [place] [address] Dec, [facility] [address] [facility] [id number] [place] [address] Nov, [facility] [address] [facility] [id number] [place] [address] Nov, [facility] [address] [id number] [place] [address] Nov, [facility] [address] [id number] [place] [address] Nov, [facility] [address] [facility] [id number] [place] [address] Nov, [facility] [address] [id number] [place] [address] Nov, [facility] [address] [id number] [place] [address] Oct, [facility] [address] [id number] [place] [address] Oct, [facility] [address] [id number] [place] [address] Oct, [facility] [address] [id number] [place] [address] Oct, [facility] [address] [id number] [place] [address] Oct, [facility] [address] [id number] [place] [address] Oct, 2013 [facility] [address] [id number] [place] [address] Sep, [facility] [address] [id number] [place] [address] Sep, [facility] [address] [id number] [place] [address] Sep, [facility] [address] [id number] [place] [address] Sep, [facility] [address] [facility] [id number] [place] [address] Aug, [facility] [address] [facility] [id number] [place] [address] Aug, [facility] [address] [facility] [id number] [place] [address] Jul, [facility] [address] [id number] [place] [address] Jul, [facility] [address] [facility] [id number] [place] [address] Jul, [facility] [address] [id number] [place] [address] Jul, [facility] [address] [id number] [place] [address] Jul, [facility] [address] [id number] [place] [address] Jul, [facility] [address] [id number] [place] [address] June, [facility] [address] [id number] [place] [address] June, [facility] [address] [id number] [place] [address] June, [facility] [address] [id number] [place] [address] June, [facility] [address] [id number] [place] [address] June, [facility] [address] [facility] [id number] [place] [address] June, [facility] [address] [id number] [place] [address] June, [facility] [address] [id number] [place] [address] June, [facility] [address] [id number] [place] [address] June, [facility] [address] [id number] [place] [address] June, [facility] [address] [id number] [place] [address] June, [facility] [address] [id number] [place] [address] June, [facility] [address] [id number] [place] [address] June, [facility] [address] [facility] [id number] [place] [address] June, [facility] [address] [id number] [place] [address] June, [facility] [address] [id number] [place] [address] June, [facility] [address] [id number] [place] [address] May, [facility] [address] [id number] [place] [address] May, [facility] [address] [id number] [place] [address] May, [facility] [address] [id number] [place] [address] May, [facility] [address] [id number] [place] [address] Apr, [facility] [address] [id number] [place] [address] Apr, [facility] [address] [id number] [place] [address] Apr, [facility] [address] [id number] [place] [address] Apr, [facility] [address] [id number] [place] [address] Apr, [facility] [address] [id number] [place] [address] Apr, [facility] [address] [facility] [id number] [place] [address] Mar, [facility] [address] [id number] [place] [address] Mar, [facility] [address] [id number] [place] [address] Mar, [facility] [address] [id number] [place] [address] Mar, [facility] [address] [id number] [place] [address] Mar, [facility] [address] [id number] [place] [address] Feb, [facility] [address] [id number] [place] [address] Feb, [facility] [address] [id number] [place] [address] Feb, [facility] [address] [id number] [place] [address] Feb, [facility] [address] [id number] [place] [address] Feb, [facility] [address] [id number] [place] [address] Feb, [facility] [address] [id number] [place] [address] Jan, [facility] [address] [id number] [place] [address] Jan, [facility] [address] [id number] [place] [address] Jan, [facility] [address] [id number] [place] [address] Jan, [facility] [address] [id number] [place] [address] Dec, [facility] [address] [id number] [place] [address] Dec, [facility] [address] [id number] [place] [address] Dec, [facility] [address] [id number] [place] [address] Dec, [facility] [address] [id number] [place] [address] Dec, [facility] [address] [id number] [place] [address] Dec, [facility] [address] [id number] [place] [address] Nov, [facility] [address] [id number] [place] [address] Nov, [facility] [address] [id number] [place] [address] Nov, [facility] [address] [id number] [place] [address] Nov, [facility] [address] [id number] [place] [address] Nov, [facility] [address] [id number] [place] [address] Nov, [facility] [address] [id number] [place] [address] Oct, [facility] [address] [id number] [place] [address] Oct, [facility] [address] [id number] [place] [address] Sep, [facility] [address] [id number] [place] [address] Sep, [facility] [address] [id number] [place] [address] Sep, [facility] [address] [id number] [place] [address] Sep, [facility] [address] [facility] [id number] [place] [address] Aug, IMMUNIZATIONS No Known Immunizations SOCIAL HISTORY [...]
--- OUTSIDE RECORDS SUMMARY | 2019-05-20 06:54 | XMS REPORT ---
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 28323156 Problem Edema 782.3 Active 332671808 Problem Pain in joint, shoulder region 719.41 Active 798976433 Problem Lumbago 724.2 Active 222210580 Problem Anxiety state, unspecified 300.00 Act ahmet [id number] ALLERGIES No Information ENCOUNTERS Encounter Location Date Diagnosis [facility] [address] [address] June, [facility] [address] [address] June, [facility] [address] [address] 29 May, 2014 [facility] [address] [address] May, Obesity 278.00 and Lumbago 724.2 [facility] [address] [address] May, [facility] [address] [address] May, [facility] [address] [address] Apr, [facility] [address] [address] Apr, [facility] [address] [id number] [place] [address] 18 Apr, 2014 [facility] [place] [facility] [address] [id number] [place] [address] Apr, [facility] [place] [facility] [address] [id number] [place] [address] Apr, [facility] [place] [facility] [address] [id number] [place] [address] Apr, [facility] [place] [facility] [address] [id number] [place] [address] Mar, [facility] [place] [facility] [address] [id number] [place] [address] Mar, [facility] [place] [facility] [address] [id number] [place] [address] Mar, [facility] [place] [facility] [address] [id number] [place] [address] Mar, [facility] [place] [facility] [address] [id number] [place] [address] Mar, [facility] [place] [facility] [address] [id number] [place] [address] Mar, [facility] [place] [facility] [address] [id number] [place] [address] Feb, [facility] [place] [facility] [address] [id number] [place] [address] Feb, [facility] [place] [facility] [address] [id number] [place] [address] Feb, [facility] [place] [facility] [address] [id number] [place] [address] Feb, [facility] [place] [facility] [address] [id number] [place] [address] Feb, [facility] [place] [facility] [address] [id number] [place] [address] Feb, [facility] [place] [facility] [address] [id number] [place] [address] Jan, [facility] [place] [facility] [address] [id number] [place] [address] Jan, [facility] [place] [facility] [address] [id number] [place] [address] Jan, [facility] [place] [facility] [address] [id number] [place] [address] Jan, [facility] [place] [facility] [address] [id number] [place] [address] Jan, [facility] [place] [facility] [address] [id number] [place] [address] Jan, [facility] [place] [facility] [address] [id number] [place] [address] Jan, [facility] [place] [facility] [address] [id number] [place] [address] Jan, [facility] [place] [facility] [address] [id number] [place] [address] Jan, [facility] [place] [facility] [address] [id number] [place] [address] Jan, [facility] [place] [facility] [address] [id number] [place] [address] Jan, [facility] [place] [facility] [address] [id number] [place] [address] Dec, [facility] [place] [facility] [address] [id number] [place] [address] Dec, [facility] [place] [facility] [address] [id number] [place] [address] Dec, [facility] [place] [facility] [address] [id number] [place] [address] Dec, [facility] [place] [facility] [address] [id number] [place] [address] Dec, [facility] [place] [facility] [address] [id number] [place] [address] Dec, [facility] [place] [facility] [address] [id number] [place] [address] Nov, [facility] [place] [facility] [address] [id number] [place] [address] Nov, [facility] [place] [facility] [address] [id number] [place] [address] Nov, [facility] [place] [facility] [address] [id number] [place] [address] Nov, [facility] [place] [facility] [address] [id number] [place] [address] Nov, [facility] [place] [facility] [address] [id number] [place] [address] Nov, [facility] [place] [facility] [address] [id number] [place] [address] Oct, [facility] [place] [facility] [address] [id number] [place] [address] Oct, [facility] [place] [facility] [address] [id number] [place] [address] Oct, [facility] [place] [facility] [address] [id number] [place] [address] Oct, [facility] [place] [facility] [address] [id number] [place] [address] Oct, [facility] [place] [facility] [address] [id number] [place] [address] Oct, [facility] [place] [facility] [address] [id number] [place] [address] Sep, [facility] [place] [facility] [address] [id number] [place] [address] Sep, [facility] [place] [facility] [address] [id number] [place] [address] Sep, [facility] [place] [facility] [address] [id number] [place] [address] Sep, [facility] [place] [facility] [address] [id number] [place] [address] Aug, [facility] [place] [facility] [address] [facility] [id number] [place] [address] Aug, [facility] [place] [facility] [address] [id number] [place] [address] Jul, [facility] [place] [facility] [address] [id number] [place] [address] Jul, [facility] [place] [facility] [address] [id number] [place] [address] Jul, [facility] [place] [facility] [address] [facility] [id number] [place] [address] Jul, [facility] [place] [facility] [address] [id number] [place] [address] Jul, [facility] [place] [facility] [address] [id number] [place] [address] Jul, [facility] [place] [facility] [address] [id number] [place] [address] June, [facility] [place] [facility] [address] [id number] [place] [address] June, [facility] [place] [facility] [address] [id number] [place] [address] June, [facility] [place] [facility] [address] [id number] [place] [address] June, [facility] [place] [facility] [address] [id number] [place] [address] June, [facility] [place] [facility] [address] [id number] [place] [address] June, [facility] [place] [facility] [address] [id number] [place] [address] June, [facility] [place] [facility] [address] [id number] [place] [address] June, [facility] [place] [facility] [address] [id number] [place] [address] June, [facility] [place] [facility] [address] [id number] [place] [address] June, [facility] [place] [facility] [address] [facility] [id number] [place] [address] June, [facility] [place] [facility] [address] [facility] [id number] [place] [address] June, [facility] [place] [facility] [address] [id number] [place] [address] June, [facility] [place] [facility] [address] [id number] [place] [address] June, [facility] [place] [facility] [address] [facility] [id number] [place] [address] June, [facility] [place] [facility] [address] [id number] [place] [address] June, [facility] [place] [facility] [address] [id number] [place] [address] May, [facility] [place] [facility] [address] [id number] [place] [address] May, [facility] [place] [facility] [address] [id number] [place] [address] May, [facility] [place] [facility] [address] [id number] [place] [address] May, [facility] [place] [facility] [address] [id number] [place] [address] Apr, [facility] [place] [facility] [address] [id number] [place] [address] Apr, [facility] [place] [facility] [address] [id number] [place] [address] Apr, [facility] [place] [facility] [address] [facility] [id number] [place] [address] Apr, [facility] [place] [facility] [address] [id number] [place] [address] Apr, [facility] [place] [facility] [address] [id number] [place] [address] Apr, [facility] [place] [facility] [address] [id number] [place] [address] Mar, [facility] [place] [facility] [address] [id number] [place] [address] Mar, [facility] [place] [facility] [address] [id number] [place] [address] Mar, [facility] [place] [facility] [address] [id number] [place] [address] Mar, [facility] [place] [facility] [address] [id number] [place] [address] Mar, [facility] [place] [facility] [address] [id number] [place] [address] Feb, [facility] [place] [facility] [address] [id number] [place] [address] Feb, [facility] [place] [facility] [id number] [place] [address] Feb, [facility] [place] [facility] [address] [id number] [place] [address] Feb, [facility] [place] [facility] [address] [id number] [place] [address] Feb, [facility] [place] [facility] [address] [id number] [place] [address] Feb, [facility] [place] [facility] [id number] [place] [address] Jan, [facility] [place] [facility] [address] [id number] [place] [address] Jan, [facility] [place] [facility] [address] [id number] [place] [address] Jan, [facility] [place] [facility] [id number] [place] [address] Jan, [facility] [place] [facility] [address] [id number] [place] [address] Dec, [facility] [place] [facility] [id number] [place] [address] Dec, [facility] [place] [facility] [address] [id number] [place] [address] Dec, [facility] [place] [facility] [address] [id number] [place] [address] Dec, [facility] [place] [facility] [address] [id number] [place] [address] Dec, [facility] [place] [facility] [address] [id number] [place] [address] Dec, [facility] [place] [facility] [address] [id number] [place] [address] Nov, [facility] [place] [facility] [address] [id number] [place] [address] Nov, [facility] [place] [facility] [address] [id number] [place] [address] Nov, [facility] [place] [facility] [address] [id number] [place] [address] Nov, [facility] [place] [facility] [address] [id number] [place] [address] Nov, [facility] [place] [facility] [address] [id number] [place] [address] Nov, [facility] [place] [facility] [address] [id number] [place] [address] Oct, [facility] [place] [facility] [address] [id number] [place] [address] Oct, [facility] [place] [facility] [address] [id number] [place] [address] Sep, [facility] [place] [facility] [address] [id number] [place] [address] Sep, [facility] [place] [facility] [address] [id number] [place] [address] Sep, [facility] [place] [facility] [address] [id number] [place] [address] Sep, [facility] [place] [facility] [address] [id number] [place] [address] Aug, IMMUNIZATIONS No Known Immunizations SOCIAL HISTORY Never Assessed REASON FOR VISIT PLAN OF CARE VITAL SIGNS MEDICATIONS Unknown Medications RESULTS No Results PROCEDURES Procedure Date Ordered Result Body Site DRAIN/INJECT, JOINT/BURSA July 09, 2013 INSTRUCTIONS MEDICATIONS ADMINISTERED No Known Medications MEDICAL (GENERAL) HISTORY Type Description Date Medical History obesity Medical History arthritis back Medical History RLS Medical History migraines Surgical History cholecystectomy 2005 Surgical History orthopedic surgery- bulging disks at L4/L5 since 2008,bilat hip replacement, bilat knee replacement
--- OUTSIDE RECORDS SUMMARY | 2019-05-20 06:54 | XMS REPORT ---
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 59025988 Problem Edema 782.3 Active 622128003 Problem Pain in joint, shoulder region 719.41 Active 948058341 Problem Lumbago 724.2 Active 365574037 Problem Anxiety state, unspecified 300.00 Act ahmet [id number] ALLERGIES No Information ENCOUNTERS Encounter Location Date Diagnosis [facility] [address] [address] June, [facility] [address] [address] June, [facility] [address] [address] May, [facility] [address] [address] 28 May, 2014 Obesity 278.00 and Lumbago 724.2 [facility] [address] [address] May, [facility] [address] [address] May, [facility] [address] [address] Apr, [facility] [address] [place] [address] 18 Apr, 2014 [facility] [address] [facility] [id number] [place] [address] Apr, [facility] [address] [id number] [place] [address] Apr, [facility] [address] [id number] [place] [address] Apr, [facility] [address] [id number] [place] [address] Apr, [facility] [address] [id number] [place] [address] Mar, [facility] [address] [id number] [place] [address] Mar, [facility] [address] [id number] [place] [address] Mar, [facility] [address] [id number] [place] [address] Mar, [facility] [address] [id number] [place] [address] Mar, [facility] [address] [id number] [place] [address] Mar, [facility] [address] [id number] [place] [address] Feb, [facility] [address] [id number] [place] [address] Feb, [facility] [address] [id number] [place] [address] Feb, [facility] [address] [id number] [place] [address] Feb, [facility] [address] [id number] [place] [address] Feb, [facility] [address] [id number] [place] [address] Feb, [facility] [address] [id number] [place] [address] Jan, [facility] [address] [id number] [place] [address] Jan, [facility] [address] [id number] [place] [address] Jan, [facility] [address] [id number] [place] [address] Jan, [facility] [address] [id number] [place] [address] Jan, [facility] [address] [id number] [place] [address] Jan, [facility] [address] [id number] [place] [address] Jan, [facility] [address] [id number] [place] [address] Jan, [facility] [address] [id number] [place] [address] Jan, [facility] [address] [id number] [place] [address] Jan, [facility] [address] [id number] [place] [address] Jan, [facility] [address] [id number] [place] [address] Dec, [facility] [address] [id number] [place] [address] Dec, [facility] [address] [id number] [place] [address] Dec, [facility] [address] [id number] [place] [address] Dec, [facility] [address] [id number] [place] [address] Dec, [facility] [address] [id number] [place] [address] Dec, [facility] [address] [facility] [id number] [place] [address] Nov, [facility] [address] [facility] [id number] [place] [address] Nov, [facility] [address] [id number] [place] [address] Nov, [facility] [address] [id number] [place] [address] Nov, [facility] [address] [facility] [id number] [place] [address] Nov, [facility] [address] [id number] [place] [address] Nov, [facility] [address] [id number] [place] [address] Oct, [facility] [address] [id number] [place] [address] Oct, [facility] [address] [id number] [place] [address] Oct, [facility] [address] [id number] [place] [address] Oct, [facility] [address] [id number] [place] [address] Oct, [facility] [address] [id number] [place] [address] Oct, 2013 [facility] [address] [id number] [place] [address] Sep, [facility] [address] [id number] [place] [address] Sep, [facility] [address] [id number] [place] [address] Sep, [facility] [address] [id number] [place] [address] Sep, [facility] [address] [facility] [id number] [place] [address] Aug, [facility] [address] [facility] [id number] [place] [address] Aug, [facility] [address] [facility] [id number] [place] [address] Jul, [facility] [address] [id number] [place] [address] Jul, [facility] [address] [facility] [id number] [place] [address] Jul, [facility] [address] [id number] [place] [address] Jul, [facility] [address] [id number] [place] [address] Jul, [facility] [address] [id number] [place] [address] Jul, [facility] [address] [id number] [place] [address] June, [facility] [address] [id number] [place] [address] June, [facility] [address] [id number] [place] [address] June, [facility] [address] [id number] [place] [address] June, [facility] [address] [id number] [place] [address] June, [facility] [address] [facility] [id number] [place] [address] June, [facility] [address] [id number] [place] [address] June, [facility] [address] [id number] [place] [address] June, [facility] [address] [id number] [place] [address] June, [facility] [address] [id number] [place] [address] June, [facility] [address] [id number] [place] [address] June, [facility] [address] [id number] [place] [address] June, [facility] [address] [id number] [place] [address] June, [facility] [address] [facility] [id number] [place] [address] June, [facility] [address] [id number] [place] [address] June, [facility] [address] [id number] [place] [address] June, [facility] [address] [id number] [place] [address] May, [facility] [address] [id number] [place] [address] May, [facility] [address] [id number] [place] [address] May, [facility] [address] [id number] [place] [address] May, [facility] [address] [id number] [place] [address] Apr, [facility] [address] [id number] [place] [address] Apr, [facility] [address] [id number] [place] [address] Apr, [facility] [address] [id number] [place] [address] Apr, [facility] [address] [id number] [place] [address] Apr, [facility] [address] [id number] [place] [address] Apr, [facility] [address] [facility] [id number] [place] [address] Mar, [facility] [address] [id number] [place] [address] Mar, [facility] [address] [id number] [place] [address] Mar, [facility] [address] [id number] [place] [address] Mar, [facility] [address] [id number] [place] [address] Mar, [facility] [address] [id number] [place] [address] Feb, [facility] [address] [id number] [place] [address] Feb, [facility] [address] [id number] [place] [address] Feb, [facility] [address] [id number] [place] [address] Feb, [facility] [address] [id number] [place] [address] Feb, [facility] [address] [id number] [place] [address] Feb, [facility] [address] [id number] [place] [address] Jan, [facility] [address] [id number] [place] [address] Jan, [facility] [address] [id number] [place] [address] Jan, [facility] [address] [id number] [place] [address] Jan, [facility] [address] [id number] [place] [address] Dec, [facility] [address] [id number] [place] [address] Dec, [facility] [address] [id number] [place] [address] Dec, [facility] [address] [id number] [place] [address] Dec, [facility] [address] [id number] [place] [address] Dec, [facility] [address] [id number] [place] [address] Dec, [facility] [address] [id number] [place] [address] Nov, [facility] [address] [id number] [place] [address] Nov, [facility] [address] [id number] [place] [address] Nov, [facility] [address] [id number] [place] [address] Nov, [facility] [address] [id number] [place] [address] Nov, [facility] [address] [id number] [place] [address] Nov, [facility] [address] [id number] [place] [address] Oct, [facility] [address] [id number] [place] [address] Oct, [facility] [address] [id number] [place] [address] Sep, [facility] [address] [id number] [place] [address] Sep, [facility] [address] [id number] [place] [address] Sep, [facility] [address] [id number] [place] [address] Sep, [facility] [address] [facility] [id number] [place] [address] Aug, IMMUNIZATIONS No Known Immunizations SOCIAL HISTORY [...]
--- OUTSIDE RECORDS SUMMARY | 2019-05-20 06:54 | XMS REPORT ---
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 80341108 Problem Edema 782.3 Active 138936766 Problem Pain in joint, shoulder region 719.41 Active 388728312 Problem Lumbago 724.2 Active 828873250 Problem Anxiety state, unspecified 300.00 Act ahmet [id number] ALLERGIES No Information ENCOUNTERS Encounter Location Date Diagnosis [facility] [address] [address] June, [facility] [address] [address] June, [facility] [address] [address] May, [facility] [address] [address] 28 May, 2014 Obesity 278.00 and Lumbago 724.2 [facility] [address] [address] May, [facility] [address] [address] May, [facility] [address] [address] Apr, [facility] [address] [place] [address] 18 Apr, 2014 [facility] [address] [facility] [id number] [place] [address] Apr, [facility] [address] [id number] [place] [address] Apr, [facility] [address] [id number] [place] [address] Apr, [facility] [address] [id number] [place] [address] Apr, [facility] [address] [id number] [place] [address] Mar, [facility] [address] [id number] [place] [address] Mar, [facility] [address] [id number] [place] [address] Mar, [facility] [address] [id number] [place] [address] Mar, [facility] [address] [id number] [place] [address] Mar, [facility] [address] [id number] [place] [address] Mar, [facility] [address] [id number] [place] [address] Feb, [facility] [address] [id number] [place] [address] Feb, [facility] [address] [id number] [place] [address] Feb, [facility] [address] [id number] [place] [address] Feb, [facility] [address] [id number] [place] [address] Feb, [facility] [address] [id number] [place] [address] Feb, [facility] [address] [id number] [place] [address] Jan, [facility] [address] [id number] [place] [address] Jan, [facility] [address] [id number] [place] [address] Jan, [facility] [address] [id number] [place] [address] Jan, [facility] [address] [id number] [place] [address] Jan, [facility] [address] [id number] [place] [address] Jan, [facility] [address] [id number] [place] [address] Jan, [facility] [address] [id number] [place] [address] Jan, [facility] [address] [id number] [place] [address] Jan, [facility] [address] [id number] [place] [address] Jan, [facility] [address] [id number] [place] [address] Jan, [facility] [address] [id number] [place] [address] Dec, [facility] [address] [id number] [place] [address] Dec, [facility] [address] [id number] [place] [address] Dec, [facility] [address] [id number] [place] [address] Dec, [facility] [address] [id number] [place] [address] Dec, [facility] [address] [id number] [place] [address] Dec, [facility] [address] [facility] [id number] [place] [address] Nov, [facility] [address] [facility] [id number] [place] [address] Nov, [facility] [address] [id number] [place] [address] Nov, [facility] [address] [id number] [place] [address] Nov, [facility] [address] [facility] [id number] [place] [address] Nov, [facility] [address] [id number] [place] [address] Nov, [facility] [address] [id number] [place] [address] Oct, [facility] [address] [id number] [place] [address] Oct, [facility] [address] [id number] [place] [address] Oct, [facility] [address] [id number] [place] [address] Oct, [facility] [address] [id number] [place] [address] Oct, [facility] [address] [id number] [place] [address] Oct, 2013 [facility] [address] [id number] [place] [address] Sep, [facility] [address] [id number] [place] [address] Sep, [facility] [address] [id number] [place] [address] Sep, [facility] [address] [id number] [place] [address] Sep, [facility] [address] [facility] [id number] [place] [address] Aug, [facility] [address] [facility] [id number] [place] [address] Aug, [facility] [address] [facility] [id number] [place] [address] Jul, [facility] [address] [id number] [place] [address] Jul, [facility] [address] [facility] [id number] [place] [address] Jul, [facility] [address] [id number] [place] [address] Jul, [facility] [address] [id number] [place] [address] Jul, [facility] [address] [id number] [place] [address] Jul, [facility] [address] [id number] [place] [address] June, [facility] [address] [id number] [place] [address] June, [facility] [address] [id number] [place] [address] June, [facility] [address] [id number] [place] [address] June, [facility] [address] [id number] [place] [address] June, [facility] [address] [facility] [id number] [place] [address] June, [facility] [address] [id number] [place] [address] June, [facility] [address] [id number] [place] [address] June, [facility] [address] [id number] [place] [address] June, [facility] [address] [id number] [place] [address] June, [facility] [address] [id number] [place] [address] June, [facility] [address] [id number] [place] [address] June, [facility] [address] [id number] [place] [address] June, [facility] [address] [facility] [id number] [place] [address] June, [facility] [address] [id number] [place] [address] June, [facility] [address] [id number] [place] [address] June, [facility] [address] [id number] [place] [address] May, [facility] [address] [id number] [place] [address] May, [facility] [address] [id number] [place] [address] May, [facility] [address] [id number] [place] [address] May, [facility] [address] [id number] [place] [address] Apr, [facility] [address] [id number] [place] [address] Apr, [facility] [address] [id number] [place] [address] Apr, [facility] [address] [id number] [place] [address] Apr, [facility] [address] [id number] [place] [address] Apr, [facility] [address] [id number] [place] [address] Apr, [facility] [address] [facility] [id number] [place] [address] Mar, [facility] [address] [id number] [place] [address] Mar, [facility] [address] [id number] [place] [address] Mar, [facility] [address] [id number] [place] [address] Mar, [facility] [address] [id number] [place] [address] Mar, [facility] [address] [id number] [place] [address] Feb, [facility] [address] [id number] [place] [address] Feb, [facility] [address] [id number] [place] [address] Feb, [facility] [address] [id number] [place] [address] Feb, [facility] [address] [id number] [place] [address] Feb, [facility] [address] [id number] [place] [address] Feb, [facility] [address] [id number] [place] [address] Jan, [facility] [address] [id number] [place] [address] Jan, [facility] [address] [id number] [place] [address] Jan, [facility] [address] [id number] [place] [address] Jan, [facility] [address] [id number] [place] [address] Dec, [facility] [address] [id number] [place] [address] Dec, [facility] [address] [id number] [place] [address] Dec, [facility] [address] [id number] [place] [address] Dec, [facility] [address] [id number] [place] [address] Dec, [facility] [address] [id number] [place] [address] Dec, [facility] [address] [id number] [place] [address] Nov, [facility] [address] [id number] [place] [address] Nov, [facility] [address] [id number] [place] [address] Nov, [facility] [address] [id number] [place] [address] Nov, [facility] [address] [id number] [place] [address] Nov, [facility] [address] [id number] [place] [address] Nov, [facility] [address] [id number] [place] [address] Oct, [facility] [address] [id number] [place] [address] Oct, [facility] [address] [id number] [place] [address] Sep, [facility] [address] [id number] [place] [address] Sep, [facility] [address] [id number] [place] [address] Sep, [facility] [address] [id number] [place] [address] Sep, [facility] [address] [facility] [id number] [place] [address] Aug, IMMUNIZATIONS No Known Immunizations SOCIAL HISTORY [...]
--- OUTSIDE RECORDS SUMMARY | 2019-05-20 06:54 | XMS REPORT ---
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 59258661 Problem Edema 782.3 Active 757043933 Problem Pain in joint, shoulder region 719.41 Active 666333290 Problem Lumbago 724.2 Active 776955784 Problem Anxiety state, unspecified 300.00 Act ahmet [id number] ALLERGIES No Information ENCOUNTERS Encounter Location Date Diagnosis [facility] [address] [address] June, [facility] [address] [address] June, [facility] [address] [address] May, [facility] [address] [address] May, Obesity 278.00 and Lumbago 724.2 [facility] [address] [address] May, [facility] [address] [address] May, [facility] [address] [address] Apr, [facility] [address] [id number] [place] [address] Apr, [facility] [address] [id number] [place] [address] Apr, [facility] [address] [id number] [place] [address] Apr, [facility] [address] [id number] [place] [address] Apr, [facility] [address] [id number] [place] [address] Apr, [facility] [address] [id number] [place] [address] Mar, [facility] [address] [id number] [place] [address] Mar, [facility] [address] [id number] [place] [address] Mar, [facility] [address] [id number] [place] [address] Mar, [facility] [address] [id number] [place] [address] Mar, [facility] [address] [id number] [place] [address] Mar, [facility] [address] [id number] [place] [address] Feb, [facility] [address] [id number] [place] [address] Feb, [facility] [address] [id number] [place] [address] Feb, [facility] [address] [id number] [place] [address] Feb, [facility] [address] [id number] [place] [address] Feb, [facility] [address] [id number] [place] [address] Feb, [facility] [address] [id number] [place] [address] Jan, [facility] [address] [id number] [place] [address] Jan, [facility] [address] [id number] [place] [address] Jan, [facility] [address] [id number] [place] [address] Jan, [facility] [address] [id number] [place] [address] Jan, [facility] [address] [id number] [place] [address] Jan, [facility] [address] [id number] [place] [address] Jan, [facility] [address] [id number] [place] [address] Jan, [facility] [address] [id number] [place] [address] Jan, [facility] [address] [id number] [place] [address] Jan, [facility] [address] [id number] [place] [address] Jan, [facility] [address] [id number] [place] [address] Dec, [facility] [address] [id number] [place] [address] Dec, [facility] [address] [id number] [place] [address] Dec, [facility] [address] [id number] [place] [address] Dec, [facility] [address] [id number] [place] [address] Dec, [facility] [address] [id number] [place] [address] Dec, [facility] [address] [facility] [id number] [place] [address] Nov, [facility] [address] [facility] [id number] [place] [address] Nov, [facility] [address] [id number] [place] [address] Nov, [facility] [address] [id number] [place] [address] Nov, [facility] [address] [id number] [place] [address] Nov, [facility] [address] [id number] [place] [address] Nov, [facility] [address] [id number] [place] [address] Oct, [facility] [address] [id number] [place] [address] Oct, [facility] [address] [id number] [place] [address] Oct, [facility] [address] [id number] [place] [address] Oct, [facility] [address] [id number] [place] [address] Oct, [facility] [address] [id number] [place] [address] Oct, [facility] [address] [id number] [place] [address] Sep, [facility] [address] [id number] [place] [address] Sep, [facility] [address] [id number] [place] [address] Sep, [facility] [address] [id number] [place] [address] Sep, [facility] [address] [id number] [place] [address] Aug, [facility] [address] [id number] [place] [address] Aug, [facility] [address] [id number] [place] [address] Jul, [facility] [address] [id number] [place] [address] Jul, [facility] [address] [facility] [id number] [place] [address] Jul, [facility] [address] [id number] [place] [address] Jul, [facility] [address] [id number] [place] [address] Jul, [facility] [address] [id number] [place] [address] Jul, [facility] [address] [id number] [place] [address] June, [facility] [address] [id number] [place] [address] June, [facility] [address] [id number] [place] [address] June, [facility] [address] [id number] [place] [address] June, [facility] [address] [id number] [place] [address] June, [facility] [address] [id number] [place] [address] June, [facility] [address] [id number] [place] [address] June, [facility] [address] [id number] [place] [address] June, [facility] [address] [id number] [place] [address] June, [facility] [address] [id number] [place] [address] June, [facility] [address] [id number] [place] [address] June, [facility] [address] [id number] [place] [address] June, [facility] [address] [id number] [place] [address] June, [facility] [address] [id number] [place] [address] June, [facility] [address] [id number] [place] [address] June, [facility] [address] [id number] [place] [address] June, [facility] [address] [id number] [place] [address] May, [facility] [address] [id number] [place] [address] May, [facility] [address] [id number] [place] [address] May, [facility] [address] [id number] [place] [address] May, [facility] [address] [id number] [place] [address] Apr, [facility] [address] [id number] [place] [address] Apr, [facility] [address] [id number] [place] [address] Apr, [facility] [address] [id number] [place] [address] Apr, [facility] [address] [id number] [place] [address] Apr, [facility] [address] [id number] [place] [address] Apr, [facility] [address] [id number] [place] [address] Mar, [facility] [address] [id number] [place] [address] Mar, [facility] [address] [id number] [place] [address] Mar, [facility] [address] [id number] [place] [address] Mar, [facility] [address] [id number] [place] [address] Mar, [facility] [address] [id number] [place] [address] Feb, [facility] [address] [id number] [place] [address] Feb, [facility] [address] [id number] [place] [address] Feb, [facility] [address] [id number] [place] [address] Feb, [facility] [address] [id number] [place] [address] Feb, [facility] [address] [id number] [place] [address] Feb, [facility] [address] [id number] [place] [address] Jan, [facility] [address] [id number] [place] [address] Jan, [facility] [address] [id number] [place] [address] Jan, [facility] [address] [id number] [place] [address] Jan, [facility] [address] [id number] [place] [address] Dec, [facility] [address] [facility] [id number] [place] [address] Dec, [facility] [address] [facility] [id number] [place] [address] Dec, [facility] [address] [id number] [place] [address] Dec, [facility] [address] [id number] [place] [address] Dec, [facility] [address] [facility] [id number] [place] [address] Dec, [facility] [address] [id number] [place] [address] Nov, [facility] [address] [id number] [place] [address] Nov, [facility] [address] [id number] [place] [address] Nov, [facility] [address] [facility] [id number] [place] [address] Nov, [facility] [address] [id number] [place] [address] Nov, [facility] [address] [id number] [place] [address] Nov, [facility] [address] [id number] [place] [address] Oct, [facility] [address] [facility] [id number] [place] [address] Oct, [facility] [address] [facility] [id number] [place] [address] Sep, [facility] [address] [facility] [id number] [place] [address] Sep, [facility] [address] [id number] [place] [address] Sep, [facility] [address] [id number] [place] [address] Sep, [facility] [address] [facility] [id number] [place] [address] Aug, IMMUNIZATIONS No Known Immunizations SOCIAL HISTORY [...]
--- OUTSIDE RECORDS SUMMARY | 2019-05-20 06:54 | XMS REPORT ---
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 18408465 Problem Edema 782.3 Active 331098183 Problem Pain in joint, shoulder region 719.41 Active 334239294 Problem Lumbago 724.2 Active 426737028 Problem Anxiety state, unspecified 300.00 Act ahmet [id number] ALLERGIES No Information ENCOUNTERS Encounter Location Date Diagnosis [facility] [address] [address] June, [facility] [address] [address] June, [facility] [address] [address] May, [facility] [address] [address] 28 May, 2014 Obesity 278.00 and Lumbago 724.2 [facility] [address] [address] May, [facility] [address] [address] May, [facility] [address] [address] Apr, [facility] [address] [place] [address] 18 Apr, 2014 [facility] [address] [facility] [id number] [place] [address] Apr, [facility] [address] [id number] [place] [address] Apr, [facility] [address] [id number] [place] [address] Apr, [facility] [address] [id number] [place] [address] Apr, [facility] [address] [id number] [place] [address] Mar, [facility] [address] [id number] [place] [address] Mar, [facility] [address] [id number] [place] [address] Mar, [facility] [address] [id number] [place] [address] Mar, [facility] [address] [id number] [place] [address] Mar, [facility] [address] [id number] [place] [address] Mar, [facility] [address] [id number] [place] [address] Feb, [facility] [address] [id number] [place] [address] Feb, [facility] [address] [id number] [place] [address] Feb, [facility] [address] [id number] [place] [address] Feb, [facility] [address] [id number] [place] [address] Feb, [facility] [address] [id number] [place] [address] Feb, [facility] [address] [id number] [place] [address] Jan, [facility] [address] [id number] [place] [address] Jan, [facility] [address] [id number] [place] [address] Jan, [facility] [address] [id number] [place] [address] Jan, [facility] [address] [id number] [place] [address] Jan, [facility] [address] [id number] [place] [address] Jan, [facility] [address] [id number] [place] [address] Jan, [facility] [address] [id number] [place] [address] Jan, [facility] [address] [id number] [place] [address] Jan, [facility] [address] [id number] [place] [address] Jan, [facility] [address] [id number] [place] [address] Jan, [facility] [address] [id number] [place] [address] Dec, [facility] [address] [id number] [place] [address] Dec, [facility] [address] [id number] [place] [address] Dec, [facility] [address] [id number] [place] [address] Dec, [facility] [address] [id number] [place] [address] Dec, [facility] [address] [id number] [place] [address] Dec, [facility] [address] [facility] [id number] [place] [address] Nov, [facility] [address] [facility] [id number] [place] [address] Nov, [facility] [address] [id number] [place] [address] Nov, [facility] [address] [id number] [place] [address] Nov, [facility] [address] [facility] [id number] [place] [address] Nov, [facility] [address] [id number] [place] [address] Nov, [facility] [address] [id number] [place] [address] Oct, [facility] [address] [id number] [place] [address] Oct, [facility] [address] [id number] [place] [address] Oct, [facility] [address] [id number] [place] [address] Oct, [facility] [address] [id number] [place] [address] Oct, [facility] [address] [id number] [place] [address] Oct, 2013 [facility] [address] [id number] [place] [address] Sep, [facility] [address] [id number] [place] [address] Sep, [facility] [address] [id number] [place] [address] Sep, [facility] [address] [id number] [place] [address] Sep, [facility] [address] [facility] [id number] [place] [address] Aug, [facility] [address] [facility] [id number] [place] [address] Aug, [facility] [address] [facility] [id number] [place] [address] Jul, [facility] [address] [id number] [place] [address] Jul, [facility] [address] [facility] [id number] [place] [address] Jul, [facility] [address] [id number] [place] [address] Jul, [facility] [address] [id number] [place] [address] Jul, [facility] [address] [id number] [place] [address] Jul, [facility] [address] [id number] [place] [address] June, [facility] [address] [id number] [place] [address] June, [facility] [address] [id number] [place] [address] June, [facility] [address] [id number] [place] [address] June, [facility] [address] [id number] [place] [address] June, [facility] [address] [facility] [id number] [place] [address] June, [facility] [address] [id number] [place] [address] June, [facility] [address] [id number] [place] [address] June, [facility] [address] [id number] [place] [address] June, [facility] [address] [id number] [place] [address] June, [facility] [address] [id number] [place] [address] June, [facility] [address] [id number] [place] [address] June, [facility] [address] [id number] [place] [address] June, [facility] [address] [facility] [id number] [place] [address] June, [facility] [address] [id number] [place] [address] June, [facility] [address] [id number] [place] [address] June, [facility] [address] [id number] [place] [address] May, [facility] [address] [id number] [place] [address] May, [facility] [address] [id number] [place] [address] May, [facility] [address] [id number] [place] [address] May, [facility] [address] [id number] [place] [address] Apr, [facility] [address] [id number] [place] [address] Apr, [facility] [address] [id number] [place] [address] Apr, [facility] [address] [id number] [place] [address] Apr, [facility] [address] [id number] [place] [address] Apr, [facility] [address] [id number] [place] [address] Apr, [facility] [address] [facility] [id number] [place] [address] Mar, [facility] [address] [id number] [place] [address] Mar, [facility] [address] [id number] [place] [address] Mar, [facility] [address] [id number] [place] [address] Mar, [facility] [address] [id number] [place] [address] Mar, [facility] [address] [id number] [place] [address] Feb, [facility] [address] [id number] [place] [address] Feb, [facility] [address] [id number] [place] [address] Feb, [facility] [address] [id number] [place] [address] Feb, [facility] [address] [id number] [place] [address] Feb, [facility] [address] [id number] [place] [address] Feb, [facility] [address] [id number] [place] [address] Jan, [facility] [address] [id number] [place] [address] Jan, [facility] [address] [id number] [place] [address] Jan, [facility] [address] [id number] [place] [address] Jan, [facility] [address] [id number] [place] [address] Dec, [facility] [address] [id number] [place] [address] Dec, [facility] [address] [id number] [place] [address] Dec, [facility] [address] [id number] [place] [address] Dec, [facility] [address] [id number] [place] [address] Dec, [facility] [address] [id number] [place] [address] Dec, [facility] [address] [id number] [place] [address] Nov, [facility] [address] [id number] [place] [address] Nov, [facility] [address] [id number] [place] [address] Nov, [facility] [address] [id number] [place] [address] Nov, [facility] [address] [id number] [place] [address] Nov, [facility] [address] [id number] [place] [address] Nov, [facility] [address] [id number] [place] [address] Oct, [facility] [address] [id number] [place] [address] Oct, [facility] [address] [id number] [place] [address] Sep, [facility] [address] [id number] [place] [address] Sep, [facility] [address] [id number] [place] [address] Sep, [facility] [address] [id number] [place] [address] Sep, [facility] [address] [facility] [id number] [place] [address] Aug, IMMUNIZATIONS No Known Immunizations SOCIAL HISTORY [...]
--- OUTSIDE RECORDS SUMMARY | 2019-05-20 06:54 | XMS REPORT ---
Author Author Eleanor Murphy Organization 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 [address] [address] June, [facility] [address] [address] June, [facility] [address] [address] May, [facility] [address] [address] May, Obesity 278.[address] [facility] [address] [address] May, [facility] [address] [address] May, [facility] [address] [address] Apr, [facility] [address] [id number] [place] [address] Apr, [facility] [address] [id number] [place] [address] Apr, [facility] [address] [id number] [place] [address] Apr, [facility] [address] [id number] [place] [address] Apr, [facility] [address] [id number] [place] [address] Apr, [facility] [address] [id number] [place] [address] Mar, [facility] [address] [id number] [place] [address] Mar, [facility] [address] [id number] [place] [address] Mar, [facility] [address] [id number] [place] [address] Mar, [facility] [address] [id number] [place] [address] Mar, [facility] [address] [id number] [place] [address] Mar, [facility] [address] [id number] [place] [address] Feb, [facility] [address] [id number] [place] [address] Feb, [facility] [address] [id number] [place] [address] Feb, [facility] [address] [id number] [place] [address] Feb, [facility] [address] [id number] [place] [address] Feb, [facility] [address] [id number] [place] [address] Feb, [facility] [address] [id number] [place] [address] Jan, [facility] [address] [id number] [place] [address] Jan, [facility] [address] [id number] [place] [address] Jan, [facility] [address] [id number] [place] [address] Jan, [facility] [address] [id number] [place] [address] Jan, [facility] [address] [id number] [place] [address] Jan, [facility] [address] [id number] [place] [address] Jan, [facility] [address] [id number] [place] [address] Jan, [facility] [address] [id number] [place] [address] Jan, [facility] [address] [id number] [place] [address] Jan, [facility] [address] [id number] [place] [address] Jan, [facility] [address] [id number] [place] [address] Dec, [facility] [address] [id number] [place] [address] Dec, [facility] [address] [id number] [place] [address] Dec, [facility] [address] [id number] [place] [address] Dec, [facility] [address] [id number] [place] [address] Dec, [facility] [address] [id number] [place] [address] Dec, [facility] [address] [facility] [id number] [place] [address] Nov, [facility] [address] [facility] [id number] [place] [address] Nov, [facility] [address] [id number] [place] [address] Nov, [facility] [address] [id number] [place] [address] Nov, [facility] [address] [id number] [place] [address] Nov, [facility] [address] [id number] [place] [address] Nov, [facility] [address] [id number] [place] [address] Oct, [facility] [address] [id number] [place] [address] Oct, [facility] [address] [id number] [place] [address] Oct, [facility] [address] [id number] [place] [address] Oct, [facility] [address] [id number] [place] [address] Oct, [facility] [address] [id number] [place] [address] Oct, [facility] [address] [id number] [place] [address] Sep, [facility] [address] [id number] [place] [address] Sep, [facility] [address] [id number] [place] [address] Sep, [facility] [address] [id number] [place] [address] Sep, [facility] [address] [id number] [place] [address] Aug, [facility] [address] [id number] [place] [address] Aug, [facility] [address] [id number] [place] [address] Jul, [facility] [address] [id number] [place] [address] Jul, [facility] [address] [facility] [id number] [place] [address] Jul, [facility] [address] [id number] [place] [address] Jul, [facility] [address] [id number] [place] [address] Jul, [facility] [address] [id number] [place] [address] Jul, [facility] [address] [id number] [place] [address] June, [facility] [address] [id number] [place] [address] June, [facility] [address] [id number] [place] [address] June, [facility] [address] [id number] [place] [address] June, [facility] [address] [id number] [place] [address] June, [facility] [address] [id number] [place] [address] June, [facility] [address] [id number] [place] [address] June, [facility] [address] [id number] [place] [address] June, [facility] [address] [id number] [place] [address] June, [facility] [address] [id number] [facility] [place] [address] June, [facility] [address] [id number] [place] [address] June, [facility] [address] [id number] [facility] [place] [address] June, [facility] [address] [id number] [facility] [place] [address] June, [facility] [address] [id number] [facility] [place] [address] June, [facility] [address] [id number] [place] [address] June, [facility] [address] [id number] [place] [address] June, [facility] [address] [id number] [place] [address] May, [facility] [address] [id number] [place] [address] May, [facility] [address] [id number] [place] [address] May, [facility] [address] [id number] [place] [address] May, [facility] [address] [id number] [place] [address] Apr, [facility] [address] [id number] [facility] [place] [address] Apr, [facility] [address] [id number] [place] [address] Apr, [facility] [address] [id number] [place] [address] Apr, [facility] [address] [id number] [place] [address] Apr, [facility] [address] [id number] [place] [address] Apr, [facility] [address] [id number] [place] [address] Mar, [facility] [address] [id number] [place] [address] Mar, [facility] [address] [id number] [place] [address] Mar, [facility] [address] [id number] [place] [address] Mar, [facility] [address] [id number] [place] [address] Mar, [facility] [address] [id number] [place] [address] Feb, [facility] [address] [id number] [place] [address] Feb, [facility] [address] [id number] [place] [address] Feb, [facility] [address] [id number] [place] [address] Feb, [facility] [address] [id number] [place] [address] Feb, [facility] [address] [id number] [place] [address] Feb, [facility] [address] [id number] [place] [address] Jan, [facility] [address] [id number] [place] [address] Jan, [facility] [address] [id number] [place] [address] Jan, [facility] [address] [id number] [place] [address] Jan, [facility] [address] [id number] [place] [address] Dec, [facility] [address] [facility] [id number] [place] [address] Dec, [facility] [address] [facility] [id number] [place] [address] Dec, [facility] [address] [id number] [place] [address] Dec, [facility] [address] [id number] [place] [address] Dec, [facility] [address] [facility] [id number] [place] [address] Dec, [facility] [address] [id number] [place] [address] Nov, [facility] [address] [id number] [place] [address] Nov, [facility] [address] [id number] [place] [address] Nov, [facility] [address] [facility] [id number] [place] [address] Nov, [facility] [address] [id number] [place] [address] Nov, [facility] [address] [id number] [place] [address] Nov, [facility] [address] [id number] [place] [address] Oct, [facility] [address] [facility] [id number] [place] [address] Oct, [facility] [address] [facility] [id number] [place] [address] Sep, [facility] [address] [facility] [id number] [place] [address] Sep, [facility] [address] [id number] [place] [address] Sep, [facility] [address] [id number] [place] [address] Sep, [facility] [address] [facility] [id number] [place] [address] Aug, IMMUNIZATIONS No Known Immunizations SOCIAL HISTORY [...]
--- OUTSIDE RECORDS SUMMARY | 2019-05-20 06:54 | XMS REPORT ---
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 17766575 Problem Edema 782.3 Active 723596113 Problem Pain in joint, shoulder region 719.41 Active 106710270 Problem Lumbago 724.2 Active 326449587 Problem Anxiety state, unspecified 300.00 Act ahmet [id number] ALLERGIES No Information ENCOUNTERS Encounter Location Date Diagnosis [facility] [address] [address] June, [facility] [address] [address] June, [facility] [address] [address] May, [facility] [address] [address] May, Obesity 278.00 and Lumbago 724.2 [facility] [address] [address] May, [facility] [address] [address] May, [facility] [address] [address] Apr, [facility] [address] [id number] [place] [address] Apr, [facility] [address] [id number] [place] [address] Apr, [facility] [address] [id number] [place] [address] Apr, [facility] [address] [id number] [place] [address] Apr, [facility] [address] [id number] [place] [address] Apr, [facility] [address] [id number] [place] [address] Mar, [facility] [address] [id number] [place] [address] Mar, [facility] [address] [id number] [place] [address] Mar, [facility] [address] [id number] [place] [address] Mar, [facility] [address] [id number] [place] [address] Mar, [facility] [address] [id number] [place] [address] Mar, [facility] [address] [id number] [place] [address] Feb, [facility] [address] [id number] [place] [address] Feb, [facility] [address] [id number] [place] [address] Feb, [facility] [address] [id number] [place] [address] Feb, [facility] [address] [id number] [place] [address] Feb, [facility] [address] [id number] [place] [address] Feb, [facility] [address] [id number] [place] [address] Jan, [facility] [address] [id number] [place] [address] Jan, [facility] [address] [id number] [place] [address] Jan, [facility] [address] [id number] [place] [address] Jan, [facility] [address] [id number] [place] [address] Jan, [facility] [address] [id number] [place] [address] Jan, [facility] [address] [id number] [place] [address] Jan, [facility] [address] [id number] [place] [address] Jan, [facility] [address] [id number] [place] [address] Jan, [facility] [address] [id number] [place] [address] Jan, [facility] [address] [id number] [place] [address] Jan, [facility] [address] [id number] [place] [address] Dec, [facility] [address] [id number] [place] [address] Dec, [facility] [address] [id number] [place] [address] Dec, [facility] [address] [id number] [place] [address] Dec, [facility] [address] [id number] [place] [address] Dec, [facility] [address] [id number] [place] [address] Dec, [facility] [address] [facility] [id number] [place] [address] Nov, [facility] [address] [facility] [id number] [place] [address] Nov, [facility] [address] [id number] [place] [address] Nov, [facility] [address] [id number] [place] [address] Nov, [facility] [address] [id number] [place] [address] Nov, [facility] [address] [id number] [place] [address] Nov, [facility] [address] [id number] [place] [address] Oct, [facility] [address] [id number] [place] [address] Oct, [facility] [address] [id number] [place] [address] Oct, [facility] [address] [id number] [place] [address] Oct, [facility] [address] [id number] [place] [address] Oct, [facility] [address] [id number] [place] [address] Oct, [facility] [address] [id number] [place] [address] Sep, [facility] [address] [id number] [place] [address] Sep, [facility] [address] [id number] [place] [address] Sep, [facility] [address] [id number] [place] [address] Sep, [facility] [address] [id number] [place] [address] Aug, [facility] [address] [id number] [place] [address] Aug, [facility] [address] [id number] [place] [address] Jul, [facility] [address] [id number] [place] [address] Jul, [facility] [address] [facility] [id number] [place] [address] Jul, [facility] [address] [id number] [place] [address] Jul, [facility] [address] [id number] [place] [address] Jul, [facility] [address] [id number] [place] [address] Jul, [facility] [address] [id number] [place] [address] June, [facility] [address] [id number] [place] [address] June, [facility] [address] [id number] [place] [address] June, [facility] [place] [address] [id number] [place] [address] June, [facility] [address] [id number] [place] [address] June, [facility] [address] [id number] [place] [address] June, [facility] [place] [address] [id number] [place] [address] June, [facility] [address] [id number] [place] [address] June, [facility] [address] [id number] [place] [address] June, [facility] [address] [id number] [place] [address] June, [facility] [address] [id number] [place] [address] June, [facility] [place] [facility] [address] [id number] [place] [address] June, [facility] [place] [facility] [address] [id number] [place] [address] June, [facility] [place] [facility] [address] [id number] [place] [address] June, [facility] [place] [facility] [address] [id number] [place] [address] June, [facility] [place] [address] [id number] [place] [address] June, [facility] [place] [address] [id number] [place] [address] May, [facility] [place] [address] [id number] [place] [address] May, [facility] [place] [address] [id number] [place] [address] May, [facility] [place] [address] [id number] [place] [address] May, [facility] [place] [address] [id number] [place] [address] Apr, [facility] [place] [address] [id number] [place] [address] Apr, [facility] [place] [address] [id number] [place] [address] Apr, [facility] [address] [id number] [place] [address] Apr, [facility] [address] [id number] [place] [address] Apr, [facility] [place] [address] [id number] [place] [address] Apr, [facility] [address] [id number] [place] [address] Mar, [facility] [address] [id number] [place] [address] Mar, [facility] [address] [id number] [place] [address] Mar, [facility] [address] [id number] [place] [address] Mar, [facility] [place] [address] [id number] [place] [address] Mar, [facility] [address] [id number] [place] [address] Feb, [facility] [place] [facility] [address] [id number] [place] [address] Feb, [facility] [address] [id number] [place] [address] Feb, [facility] [address] [id number] [place] [address] Feb, [facility] [address] [id number] [place] [address] Feb, [facility] [place] [address] [id number] [place] [address] Feb, [facility] [address] [id number] [place] [address] Jan, [facility] [address] [id number] [place] [address] Jan, [facility] [address] [id number] [place] [address] Jan, [facility] [address] [id number] [place] [address] Jan, [facility] [address] [id number] [place] [address] Dec, [facility] [address] [facility] [id number] [place] [address] Dec, [facility] [address] [facility] [id number] [place] [address] Dec, [facility] [address] [id number] [place] [address] Dec, [facility] [address] [id number] [place] [address] Dec, [facility] [address] [facility] [id number] [place] [address] Dec, [facility] [address] [id number] [place] [address] Nov, [facility] [address] [id number] [place] [address] Nov, [facility] [address] [id number] [place] [address] Nov, [facility] [address] [facility] [id number] [place] [address] Nov, [facility] [address] [id number] [place] [address] Nov, [facility] [address] [id number] [place] [address] Nov, [facility] [address] [id number] [place] [address] Oct, [facility] [address] [facility] [id number] [place] [address] Oct, [facility] [address] [facility] [id number] [place] [address] Sep, [facility] [address] [facility] [id number] [place] [address] Sep, [facility] [address] [id number] [place] [address] Sep, [facility] [address] [id number] [place] [address] Sep, [facility] [address] [facility] [id number] [place] [address] Aug, IMMUNIZATIONS No Known Immunizations SOCIAL HISTORY [...]
--- OUTSIDE RECORDS SUMMARY | 2019-05-20 06:55 | XMS REPORT ---
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 60985449 Problem Edema 782.3 Active 728334090 Problem Pain in joint, shoulder region 719.41 Active 447392669 Problem Lumbago 724.2 Active 128282726 Problem Anxiety state, unspecified 300.00 Act ahmet [id number] ALLERGIES No Information ENCOUNTERS Encounter Location Date Diagnosis [facility] [address] [id number] [address] [place] [id number] June, [facility] [address] [facility] [id number] [address] [place] [id number] June, [facility] [address] [facility] [id number] [address] [place] [address] 29 May, 2014 [facility] [address] [facility] [id number] [address] [place] [address] 28 May, 2014 Obesity 278.00 and Lumbago 7 24.2 [facility] [address] [facility] [id number] [address] [place] [id number] 14 May, 2014 [facility] [address] [facility] [id number] [address] [place] [id number] 13 May, 2014 [facility] [address] [id number] [address] [place] [id number] 18 Apr, 2014 [facility] [address] [id number] [address] [place] [address], [place] [address] 18 Apr, 2014 [facility] [address] [id number] [address] [place] [address], [place] [address] 18 Apr, 2014 [facility] [address] [id number] [address] [place] [id number] 18 Apr, 2014 [facility] [address] [id number] [address] [place] [id number] 11 Apr, 2014 [facility] [address] [id number] [address] [place] [address], [place] [address] Apr, [facility] [address] [id number] [address] [place] [phone] Mar, [facility] [address] [id number] [address] [place] [address] Mar, [facility] [address] [id number] [address] [place] [phone] Mar, [facility] [address] [id number] [address] [place] [address], [place] [address] Mar, [facility] [address] [id number] [address] [place] [id number] 16 Mar, 2014 [facility] [address] [id number] [address] [place] [id number] Mar, [facility] [address] [id number] [address] [place] [phone] Feb, [facility] [address] [id number] [address] [place] [address] Feb, [facility] [address] [id number] [address] [place] [id number] Feb, [facility] [address] [id number] [address] [place] [id number] Feb, [facility] [address] [id number] [address] [place] [address], [place] [address] Feb, [facility] [address] [id number] [address] [place] [address], [place] [address] Feb, [facility] [address] [id number] [address] [place] [address], [place] [address] Jan, [facility] [address] [id number] [address] [place] [address], [place] [address] Jan, [facility] [address] [id number] [address] [place] [address], [place] [address] Jan, [facility] [address] [id number] [address] [place] [address], [place] [address] Jan, [facility] [address] [id number] [address] [place] [address], [place] [address] Jan, [facility] [address] [id number] [address] [place] [address], [place] [address] Jan, [facility] [address] [id number] [address] [place] [address], [place] [address] Jan, [facility] [address] [id number] [address] [place] [address], [place] [address] Jan, [facility] [address] [id number] [address] [place] [address], [place] [address] Jan, [facility] [address] [id number] [address] [place] [address], [place] [address] Jan, [facility] [address] [id number] [address] [place] [address], [place] [address] Jan, [facility] [address] [id number] [address] [place] [address], [place] [address] Dec, [facility] [address] [id number] [address] [place] [address], [place] [address] Dec, [facility] [address] [id number] [address] [place] [address], [place] [address] Dec, [facility] [address] [id number] [address] [place] [address], [place] [address] Dec, [facility] [address] [id number] [address] [place] [address], [place] [address] Dec, [facility] [address] [id number] [address] [place] [address], [place] [address] Dec, [facility] [address] [id number] [address] [place] [address], [place] [address] Nov, [facility] [address] [id number] [address] [place] [address], [place] [address] Nov, [facility] [address] [id number] [address] [place] [address], [place] [address] Nov, [facility] [address] [id number] [address] [place] [address], [place] [address] Nov, [facility] [address] [id number] [address] [place] [address], [place] [address] Nov, [facility] [address] [id number] [address] [place] [address], [place] [address] Nov, [facility] [address] [id number] [address] [place] [address] Oct, [facility] [address] [id number] [address] [place] [address] Oct, 2013 [facility] [address] [id number] [address] [place] [address] Oct, 2013 [facility] [address] [id number] [address] [place] [address], [place] [address] Oct, 2013 [facility] [address] [id number] [address] [place] [address], [place] [address] Oct, 2013 [facility] [address] [id number] [address] [place] [address], [place] [address] Oct, 2013 [facility] [address] [id number] [address] [place] [address], [place] [address] Sep, [facility] [address] [id number] [address] [place] [address], [place] [address] Sep, [facility] [address] [id number] [address] [place] [address], [place] [address] Sep, [facility] [address] [id number] [address] [place] [address], [place] [address] Sep, [facility] [address] [id number] [address] [place] [address], [place] [address] Aug, [facility] [address] [id number] [address] [place] [address], [place] [address] Aug, [facility] [address] [id number] [address] [place] [address], [place] [address] Jul, [facility] [address] [id number] [address] [place] [address], [place] [address] Jul, [facility] [address] [id number] [address] [place] [address], [place] [address] Jul, [facility] [address] [id number] [address] [place] [address], [place] [address] Jul, [facility] [address] [id number] [address] [place] [address], [place] [address] Jul, [facility] [address] [id number] [address] [place] [address], [place] [address] Jul, [facility] [address] [id number] [address] [place] [address], [place] [address] June, [facility] [address] [id number] [address] [place] [address], [place] [address] June, [facility] [address] [id number] [address] [place] [address], [place] [address] June, [facility] [address] [id number] [address] [place] [address], [place] [address] June, [facility] [address] [id number] [address] [place] [address], [place] [address] June, [facility] [address] [id number] [address] [place] [address], [place] [address] June, [facility] [address] [id number] [address] [place] [address], [place] [address] June, [facility] [address] [id number] [address] [place] [address], [place] [address] June, [facility] [address] [id number] [address] [place] [address], [place] [address] June, [facility] [address] [id number] [address] [place] [address], [place] [address] June, [facility] [address] [id number] [address] [place] [address], [place] [address] June, [facility] [address] [id number] [address] [place] [address], [place] [address] June, [facility] [address] [id number] [address] [place] [address], [place] [address] June, [facility] [address] [id number] [address] [place] [address], [place] [address] June, [facility] [address] [id number] [address] [place] [address], [place] [address] June, [facility] [address] [id number] [address] [place] [address], [place] [address] June, [facility] [address] [id number] [address] [place] [address], [place] [address] May, [facility] [address] [id number] [address] [place] [address], [place] [address] May, [facility] [address] [id number] [address] [place] [address], [place] [address] May, [facility] [address] [id number] [address] [place] [address] 16 May, 2013 [facility] [address] [id number] [address] [place] [address], [place] [address] 31 Apr, 2013 [facility] [address] [id number] [address] [place] [address], [place] [address] 31 Apr, 2013 [facility] [address] [id number] [address] [place] [address], [place] [address] 18 Apr, 2013 [facility] [address] [id number] [address] [place] [address], [place] [address] 18 Apr, 2013 [facility] [address] [id number] [address] [place] [address], [place] [address] 14 Apr, 2013 [facility] [address] [id number] [address] [place] [address], [place] [address] 14 Apr, 2013 [facility] [address] [id number] [address] [place] [address], [place] [address] 25 Mar, 2013 [facility] [address] [id number] [address] [place] [address], [place] [address] Mar, [facility] [address] [id number] [address] [place] [address], [place] [address] Mar, [facility] [address] [id number] [address] [place] [address], [place] [address] 18 Mar, 2013 [facility] [address] [id number] [address] [place] [address], [place] [address] Mar, [facility] [address] [id number] [address] [place] [address], [place] [address] Feb, [facility] [address] [id number] [address] [place] [address], [place] [address] Feb, [facility] [address] [id number] [address] [place] [address], [place] [address] Feb, [facility] [address] [id number] [address] [place] [address], [place] [address] Feb, [facility] [address] [id number] [address] [place] [address], [place] [address] Feb, [facility] [address] [id number] [address] [place] [address], [place] [address] Feb, [facility] [address] [id number] [address] [place] [address], [place] [address] Jan, [facility] [address] [id number] [address] [place] [address], [place] [address] Jan, [facility] [address] [id number] [address] [place] [address], [place] [address] Jan, [facility] [address] [id number] [address] [place] [address], [place] [address] Jan, [facility] [address] [id number] [address] [place] [address], [place] [address] Dec, [facility] [address] [id number] [address] [place] [address], [place] [address] Dec, [facility] [address] [id number] [address] [place] [address], [place] [address] Dec, [facility] [address] [id number] [address] [place] [address], [place] [address] Dec, [facility] [address] [id number] [address] [place] [address], [place] [address] Dec, [facility] [address] [id number] [address] [place] [address], [place] [address] Dec, [facility] [address] [id number] [address] [place] [address], [place] [address] Nov, [facility] [address] [id number] [address] [place] [address], [place] [address] Nov, [facility] [address] [id number] [address] [place] [address], [place] [address] Nov, [facility] [address] [id number] [address] [place] [address], [place] [address] Nov, [facility] [address] [id number] [address] [place] [address] Nov, [facility] [address] [id number] [address] [place] [address] Nov, [facility] [address] [id number] [address] [place] [address] Oct, [facility] [address] [id number] [address] [place] [address] Oct, [facility] [address] [id number] [address] [place] [address] Sep, [facility] [address] [id number] [address] [place] [address] Sep, [facility] [address] [id number] [address] [place] [address] Sep, [facility] [address] [id number] [address] [place] [address] Sep, [facility] [address] [id number] [address] [place] [address] Aug, IMMUNIZATIONS No Known Immunizations SOCIAL HISTORY Never Assessed REASON FOR VISIT PLAN OF CARE VITAL SIGNS Height 64 in 2013-11-03 Weight 318 lbs 2013-11-03 Temperature 97.9 degrees Fahrenheit 2013-11-03 Heart Rate 88 bpm 2013-11-03 Respiratory Rate 20 2013-11-03 Blood pressure systolic 116 mmHg 2013-11-03 Blood pressure diastolic 86 mmHg 2013-11-03 MEDICATIONS Unknown Medications RESULTS No Results PROCEDURES No Known procedures INSTRUCTIONS MEDICATIONS ADMINISTERED No Known Medications MEDICAL (GENERAL) HISTORY Type Description Date Medical History obesity Medical History arthritis back Medical History RLS Medical History migraines Surgical History cholecystectomy 2005 Surgical History orthopedic surgery- bulging disks at L4/L5 since 2008,bilat hip replacement, bilat knee replacement
--- OUTSIDE RECORDS SUMMARY | 2019-05-20 06:55 | XMS REPORT ---
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 75618116 Problem Edema 782.3 Active 119016234 Problem Pain in joint, shoulder region 719.41 Active 880619730 Problem Lumbago 724.2 Active 186938401 Problem Anxiety state, unspecified 300.00 Act ahmet [id number] ALLERGIES No Information ENCOUNTERS Encounter Location Date Diagnosis [facility] [address] [id number] [address] [place] [address] June, [facility] [address] [facility] [id number] [address] [place] [address] June, [facility] [address] [facility] [id number] [address] [place] [id number] 29 May, 2014 [facility] [address] [facility] [id number] [address] [place] [address] 28 May, 2014 Obesity 278.00 and Lumbago 7 24.2 [facility] [address] [facility] [id number] [address] [place] [id number] 14 May, 2014 [facility] [address] [facility] [id number] [address] [place] [address] 13 May, 2014 [facility] [address] [id number] [address] [place] [address] 18 Apr, 2014 [facility] [address] [id number] [address] [place] [address], [place] [address] 18 Apr, 2014 [facility] [address] [id number] [address] [place] [address], [place] [address] 18 Apr, 2014 [facility] [address] [id number] [address] [place] [id number] 18 Apr, 2014 [facility] [address] [id number] [address] [place] [id number] 11 Apr, 2014 [facility] [address] [id number] [address] [place] [address], [place] [address] Apr, [facility] [address] [id number] [address] [place] [address] Mar, [facility] [address] [id number] [address] [place] [address] Mar, [facility] [address] [id number] [address] [place] [address] Mar, [facility] [address] [id number] [address] [place] [address], [place] [address] Mar, [facility] [address] [id number] [address] [place] [address] 16 Mar, 2014 [facility] [address] [id number] [address] [place] [address] Mar, [facility] [address] [id number] [address] [place] [address] Feb, [facility] [address] [id number] [address] [place] [address] Feb, [facility] [address] [id number] [address] [place] [id number] Feb, [facility] [address] [id number] [address] [place] [address] Feb, [facility] [address] [id number] [address] [place] [address], [place] [address] Feb, [facility] [address] [id number] [address] [place] [address], [place] [address] Feb, [facility] [address] [id number] [address] [place] [address], [place] [address] Jan, [facility] [address] [id number] [address] [place] [address], [place] [address] Jan, [facility] [address] [id number] [address] [place] [address], [place] [address] Jan, [facility] [address] [id number] [address] [place] [address], [place] [address] Jan, [facility] [address] [id number] [address] [place] [address], [place] [address] Jan, [facility] [address] [id number] [address] [place] [address], [place] [address] Jan, [facility] [address] [id number] [address] [place] [address], [place] [address] Jan, [facility] [address] [id number] [address] [place] [address], [place] [address] Jan, [facility] [address] [id number] [address] [place] [address], [place] [address] Jan, [facility] [address] [id number] [address] [place] [address], [place] [address] Jan, [facility] [address] [id number] [address] [place] [address], [place] [address] Jan, [facility] [address] [id number] [address] [place] [address], [place] [address] Dec, [facility] [address] [id number] [address] [place] [address], [place] [address] Dec, [facility] [address] [id number] [address] [place] [address], [place] [address] Dec, [facility] [address] [id number] [address] [place] [address], [place] [address] Dec, [facility] [address] [id number] [address] [place] [address], [place] [address] Dec, [facility] [address] [id number] [address] [place] [address], [place] [address] Dec, [facility] [address] [id number] [address] [place] [address], [place] [address] Nov, [facility] [address] [id number] [address] [place] [address], [place] [address] Nov, [facility] [address] [id number] [address] [place] [address], [place] [address] Nov, [facility] [address] [id number] [address] [place] [address], [place] [address] Nov, [facility] [address] [id number] [address] [place] [address], [place] [address] Nov, [facility] [address] [id number] [address] [place] [address], [place] [address] Nov, [facility] [address] [id number] [address] [place] [address] Oct, [facility] [address] [id number] [address] [place] [address] Oct, 2013 [facility] [address] [id number] [address] [place] [address] Oct, 2013 [facility] [address] [id number] [address] [place] [address], [place] [address] Oct, 2013 [facility] [address] [id number] [address] [place] [address], [place] [address] Oct, 2013 [facility] [address] [id number] [address] [place] [address], [place] [address] Oct, 2013 [facility] [address] [id number] [address] [place] [address], [place] [address] Sep, [facility] [address] [id number] [address] [place] [address], [place] [address] Sep, [facility] [address] [id number] [address] [place] [address], [place] [address] Sep, [facility] [address] [id number] [address] [place] [address], [place] [address] Sep, [facility] [address] [id number] [address] [place] [address], [place] [address] Aug, [facility] [address] [id number] [address] [place] [address], [place] [address] Aug, [facility] [address] [id number] [address] [place] [address], [place] [address] Jul, [facility] [address] [id number] [address] [place] [address], [place] [address] Jul, [facility] [address] [id number] [address] [place] [address], [place] [address] Jul, [facility] [address] [id number] [address] [place] [address], [place] [address] Jul, [facility] [address] [id number] [address] [place] [address], [place] [address] Jul, [facility] [address] [id number] [address] [place] [address], [place] [address] Jul, [facility] [address] [id number] [address] [place] [address], [place] [address] June, [facility] [address] [id number] [address] [place] [address], [place] [address] June, [facility] [address] [id number] [address] [place] [address], [place] [address] June, [facility] [address] [id number] [address] [place] [address], [place] [address] June, [facility] [address] [id number] [address] [place] [address], [place] [address] June, [facility] [address] [id number] [address] [place] [address], [place] [address] June, [facility] [address] [id number] [address] [place] [address], [place] [address] June, [facility] [address] [id number] [address] [place] [address], [place] [address] June, [facility] [address] [id number] [address] [place] [address], [place] [address] June, [facility] [address] [id number] [address] [place] [address], [place] [address] June, [facility] [address] [id number] [address] [place] [address], [place] [address] June, [facility] [address] [id number] [address] [place] [address], [place] [address] June, [facility] [address] [id number] [address] [place] [address], [place] [address] June, [facility] [address] [id number] [address] [place] [address], [place] [address] June, [facility] [address] [id number] [address] [place] [address], [place] [address] June, [facility] [address] [id number] [address] [place] [address], [place] [address] June, [facility] [address] [id number] [address] [place] [address], [place] [address] May, [facility] [address] [id number] [address] [place] [address], [place] [address] May, [facility] [address] [id number] [address] [place] [address], [place] [address] May, [facility] [address] [id number] [address] [place] [address] 16 May, 2013 [facility] [address] [id number] [address] [place] [address], [place] [address] 31 Apr, 2013 [facility] [address] [id number] [address] [place] [address], [place] [address] 31 Apr, 2013 [facility] [address] [id number] [address] [place] [address], [place] [address] 18 Apr, 2013 [facility] [address] [id number] [address] [place] [address], [place] [address] 18 Apr, 2013 [facility] [address] [id number] [address] [place] [address], [place] [address] 14 Apr, 2013 [facility] [address] [id number] [address] [place] [address], [place] [address] 14 Apr, 2013 [facility] [address] [id number] [address] [place] [address], [place] [address] 25 Mar, 2013 [facility] [address] [id number] [address] [place] [address], [place] [address] Mar, [facility] [address] [id number] [address] [place] [address], [place] [address] Mar, [facility] [address] [id number] [address] [place] [address], [place] [address] 18 Mar, 2013 [facility] [address] [id number] [address] [place] [address], [place] [address] Mar, [facility] [address] [id number] [address] [place] [address], [place] [address] Feb, [facility] [address] [id number] [address] [place] [address], [place] [address] Feb, [facility] [address] [id number] [address] [place] [address], [place] [address] Feb, [facility] [address] [id number] [address] [place] [address], [place] [address] Feb, [facility] [address] [id number] [address] [place] [address], [place] [address] Feb, [facility] [address] [id number] [address] [place] [address], [place] [address] Feb, [facility] [address] [id number] [address] [place] [address], [place] [address] Jan, [facility] [address] [id number] [address] [place] [address], [place] [address] Jan, [facility] [address] [id number] [address] [place] [address], [place] [address] Jan, [facility] [address] [id number] [address] [place] [address], [place] [address] Jan, [facility] [address] [id number] [address] [place] [address], [place] [address] Dec, [facility] [address] [id number] [address] [place] [address], [place] [address] Dec, [facility] [address] [id number] [address] [place] [address], [place] [address] Dec, [facility] [address] [id number] [address] [place] [address], [place] [address] Dec, [facility] [address] [id number] [address] [place] [address], [place] [address] Dec, [facility] [address] [id number] [address] [place] [address], [place] [address] Dec, [facility] [address] [id number] [address] [place] [address], [place] [address] Nov, [facility] [address] [id number] [address] [place] [address], [place] [address] Nov, [facility] [address] [id number] [address] [place] [address], [place] [address] Nov, [facility] [address] [id number] [address] [place] [address], [place] [address] Nov, [facility] [address] [id number] [address] [place] [address] Nov, [facility] [address] [id number] [address] [place] [address] Nov, [facility] [address] [id number] [address] [place] [address] Oct, [facility] [address] [id number] [address] [place] [address] Oct, [facility] [address] [id number] [address] [place] [address] Sep, [facility] [address] [id number] [address] [place] [address] Sep, [facility] [address] [id number] [address] [place] [address] Sep, [facility] [address] [id number] [address] [place] [address] Sep, [facility] [address] [id number] [address] [place] [address] Aug, IMMUNIZATIONS No Known Immunizations SOCIAL HISTORY [...]
--- OUTSIDE RECORDS SUMMARY | 2019-05-20 06:55 | XMS REPORT ---
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 83251856 Problem Edema 782.3 Active 899584532 Problem Pain in joint, shoulder region 719.41 Active 612825053 Problem Lumbago 724.2 Active 692086624 Problem Anxiety state, unspecified 300.00 Act ahmet [id number] ALLERGIES No Information ENCOUNTERS Encounter Location Date Diagnosis [facility] [address] [facility] [id number] [address] [place] [id number] June, [facility] [address] [facility] [id number] [address] [place] [address] June, [facility] [address] [facility] [id number] [address] [place] [id number] 29 May, 2014 [facility] [address] [facility] [id number] [address] [place] [id number] 28 May, 2014 Obesity 278.00 and Lumbago 7 24.2 [facility] [address] [facility] [id number] [address] [place] [address] 14 May, 2014 [facility] [address] [facility] [id number] [address] [place] [address] May, [facility] [address] [facility] [id number] [address] [place] [address] Apr, [facility] [address] [facility] [id number] [address] [place] [id number] 18 Apr, 2014 [facility] [address] [id number] [address] [place] [address], [place] [address] 18 Apr, 2014 [facility] [address] [id number] [address] [place] [address], [place] [address] 18 Apr, 2014 [facility] [address] [id number] [address] [place] [address], [place] [address] Apr, [facility] [address] [id number] [address] [place] [address], [place] [address] Apr, [facility] [address] [id number] [address] [place] [address], [place] [address] Mar, [facility] [address] [id number] [address] [place] [address], [place] [address] Mar, [facility] [address] [id number] [address] [place] [address], [place] [address] Mar, [facility] [address] [id number] [address] [place] [address], [place] [address] Mar, [facility] [address] [id number] [address] [place] [address], [place] [address] Mar, [facility] [address] [id number] [address] [place] [address], [place] [address] Mar, [facility] [address] [id number] [address] [place] [address], [place] [address] Feb, [facility] [address] [id number] [address] [place] [address], [place] [address] Feb, [facility] [address] [id number] [address] [place] [address], [place] [address] Feb, [facility] [address] [id number] [address] [place] [address], [place] [address] Feb, [facility] [address] [id number] [address] [place] [address], [place] [address] Feb, [facility] [address] [id number] [address] [place] [address], [place] [address] Feb, [facility] [address] [id number] [address] [place] [address], [place] [address] Jan, [facility] [address] [id number] [address] [place] [address], [place] [address] Jan, [facility] [address] [id number] [address] [place] [address], [place] [address] Jan, [facility] [address] [id number] [address] [place] [address], [place] [address] Jan, [facility] [address] [id number] [address] [place] [address], [place] [address] Jan, [facility] [address] [id number] [address] [place] [address], [place] [address] Jan, [facility] [address] [id number] [address] [place] [address], [place] [address] Jan, [facility] [address] [id number] [address] [place] [address], [place] [address] Jan, [facility] [address] [id number] [address] [place] [address], [place] [address] Jan, [facility] [address] [id number] [address] [place] [address], [place] [address] Jan, [facility] [address] [id number] [address] [place] [address], [place] [address] Jan, [facility] [address] [id number] [address] [place] [address], [place] [address] Dec, [facility] [address] [id number] [address] [place] [address], [place] [address] Dec, [facility] [address] [id number] [address] [place] [address], [place] [address] Dec, [facility] [address] [id number] [address] [place] [address], [place] [address] Dec, [facility] [address] [id number] [address] [place] [address], [place] [address] Dec, [facility] [address] [id number] [address] [place] [address], [place] [address] Dec, [facility] [address] [id number] [address] [place] [address], [place] [address] Nov, [facility] [address] [id number] [address] [place] [address], [place] [address] Nov, [facility] [address] [id number] [address] [place] [address], [place] [address] Nov, [facility] [address] [id number] [address] [place] [address], [place] [address] Nov, [facility] [address] [id number] [address] [place] [address], [place] [address] Nov, [facility] [address] [id number] [address] [place] [address], [place] [address] Nov, [facility] [address] [id number] [address] [place] [address], [place] [address] Oct, [facility] [address] [id number] [address] [place] [address], [place] [address] Oct, [facility] [address] [id number] [address] [place] [address], [place] [address] Oct, [facility] [address] [id number] [address] [place] [address] Oct, [facility] [address] [id number] [address] [place] [address], [place] [address] Oct, [facility] [address] [id number] [address] [place] [address], [place] [address] Oct, [facility] [address] [id number] [address] [place] [address], [place] [address] Sep, [facility] [address] [id number] [address] [place] [address], [place] [address] Sep, [facility] [address] [id number] [address] [place] [address], [place] [address] Sep, [facility] [address] [id number] [address] [place] [address], [place] [address] Sep, [facility] [address] [id number] [address] [place] [address], [place] [address] Aug, [facility] [address] [id number] [address] [place] [address], [place] [address] Aug, [facility] [address] [id number] [address] [place] [address], [place] [address] Jul, [facility] [address] [id number] [address] [place] [address], [place] [address] Jul, [facility] [address] [id number] [address] [place] [address], [place] [address] Jul, [facility] [address] [id number] [address] [place] [address], [place] [address] Jul, [facility] [address] [id number] [address] [place] [address], [place] [address] Jul, [facility] [address] [id number] [address] [place] [address], [place] [address] Jul, [facility] [address] [id number] [address] [place] [address], [place] [address] June, [facility] [address] [id number] [address] [place] [address], [place] [address] June, [facility] [address] [id number] [address] [place] [address], [place] [address] June, [facility] [address] [id number] [address] [place] [address], [place] [address] June, [facility] [address] [id number] [address] [place] [address], [place] [address] June, [facility] [address] [id number] [facility] [place] [address] June, [facility] [address] [id number] [address] [place] [address], [place] [address] June, [facility] [address] [id number] [address] [place] [address], [place] [address] June, [facility] [address] [id number] [address] [place] [address], [place] [address] June, [facility] [address] [id number] [address] [place] [address], [place] [address] June, [facility] [address] [id number] [address] [place] [address], [place] [address] June, [facility] [address] [id number] [address] [place] [address], [place] [address] June, [facility] [address] [id number] [address] [place] [address], [place] [address] June, [facility] [address] [id number] [address] [place] [address], [place] [address] June, [facility] [address] [id number] [address] [place] [address], [place] [address] June, [facility] [address] [id number] [address] [place] [address], [place] [address] June, [facility] [address] [id number] [address] [place] [address], [place] [address] May, [facility] [address] [id number] [address] [place] [address], [place] [address] May, [facility] [address] [id number] [address] [place] [address], [place] [address] May, [facility] [address] [id number] [address] [place] [address], [place] [address] May, [facility] [address] [id number] [address] [place] [address], [place] [address] 31 Apr, 2013 [facility] [address] [id number] [address] [place] [address], [place] [address] 31 Apr, 2013 [facility] [address] [id number] [address] [place] [address], [place] [address] 18 Apr, 2013 [facility] [address] [id number] [address] [place] [address], [place] [address] 18 Apr, 2013 [facility] [address] [id number] [address] [place] [address], [place] [address] 14 Apr, 2013 [facility] [address] [id number] [address] [place] [address], [place] [address] 14 Apr, 2013 [facility] [address] [id number] [address] [place] [address], [place] [address] 25 Mar, 2013 [facility] [address] [id number] [address] [place] [address], [place] [address] Mar, [facility] [address] [id number] [address] [place] [address], [place] [address] Mar, [facility] [address] [id number] [address] [place] [address], [place] [address] 18 Mar, 2013 [facility] [address] [id number] [address] [place] [address], [place] [address] 18 Mar, 2013 [facility] [address] [id number] [address] [place] [address], [place] [address] Feb, [facility] [address] [id number] [address] [place] [address], [place] [address] Feb, [facility] [address] [id number] [address] [place] [address], [place] [address] Feb, [facility] [address] [id number] [address] [place] [address], [place] [address] Feb, [facility] [address] [id number] [address] [place] [address], [place] [address] Feb, [facility] [address] [id number] [address] [place] [address], [place] [address] Feb, [facility] [address] [id number] [address] [place] [address], [place] [address] Jan, [facility] [address] [id number] [address] [place] [address], [place] [address] Jan, [facility] [address] [id number] [address] [place] [address], [place] [address] Jan, [facility] [address] [id number] [address] [place] [address], [place] [address] Jan, [facility] [address] [id number] [address] [place] [address], [place] [address] Dec, [facility] [address] [id number] [address] [place] [address], [place] [address] Dec, [facility] [address] [id number] [address] [place] [address], [place] [address] Dec, [facility] [address] [id number] [address] [place] [address], [place] [address] Dec, [facility] [address] [id number] [address] [place] [address], [place] [address] Dec, [facility] [address] [id number] [address] [place] [address], [place] [address] Dec, [facility] [address] [id number] [address] [place] [address], [place] [address] Nov, [facility] [address] [id number] [address] [place] [address], [place] [address] Nov, [facility] [address] [id number] [address] [place] [address], [place] [address] Nov, [facility] [address] [id number] [address] [place] [address], [place] [address] Nov, [facility] [address] [id number] [address] [place] [address] [address] Nov, [facility] [address] [id number] [address] [place] [address] Nov, [facility] [address] [id number] [address] [place] [address] Oct, [facility] [address] [id number] [address] [place] [address] Oct, [facility] [address] [id number] [address] [place] [address] Sep, [facility] [address] [id number] [address] [place] [address] Sep, [facility] [address] [id number] [address] [place] [address] Sep, [facility] [address] [id number] [address] [place] [address] Sep, [facility] [address] [id number] [address] [place] [address] Aug, IMMUNIZATIONS No Known Immunizations SOCIAL HISTORY [...]
--- OUTSIDE RECORDS SUMMARY | 2019-05-20 06:55 | XMS REPORT ---
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 00683072 Problem Edema 782.3 Active 975065793 Problem Pain in joint, shoulder region 719.41 Active 569244659 Problem Lumbago 724.2 Active 064542747 Problem Anxiety state, unspecified 300.00 Act ahmet [id number] ALLERGIES No Information ENCOUNTERS Encounter Location Date Diagnosis [facility] [address] [facility] [id number] [address] [place] [address] June, [facility] [address] [facility] [id number] [address] [place] [address] June, [facility] [address] [facility] [id number] [address] [place] [address] 29 May, 2014 [facility] [address] [facility] [id number] [address] [place] [address] 28 May, 2014 Obesity 278.00 and Lumbago 7 24.2 [facility] [address] [facility] [id number] [address] [place] [address] 14 May, 2014 [facility] [address] [facility] [id number] [address] [place] [address] May, [facility] [address] [facility] [id number] [address] [place] [address] Apr, [facility] [address] [facility] [id number] [address] [place] [address] 18 Apr, 2014 [facility] [address] [id number] [address] [place] [address], [place] [address] 18 Apr, 2014 [facility] [address] [id number] [address] [place] [address], [place] [address] 18 Apr, 2014 [facility] [address] [id number] [address] [place] [address], [place] [address] Apr, [facility] [address] [id number] [address] [place] [address], [place] [address] Apr, [facility] [address] [id number] [address] [place] [address], [place] [address] Mar, [facility] [address] [id number] [address] [place] [address], [place] [address] Mar, [facility] [address] [id number] [address] [place] [address], [place] [address] Mar, [facility] [address] [id number] [address] [place] [address], [place] [address] Mar, [facility] [address] [id number] [address] [place] [address], [place] [address] Mar, [facility] [address] [id number] [address] [place] [address], [place] [address] Mar, [facility] [address] [id number] [address] [place] [address], [place] [address] Feb, [facility] [address] [id number] [address] [place] [address], [place] [address] Feb, [facility] [address] [id number] [address] [place] [address], [place] [address] Feb, [facility] [address] [id number] [address] [place] [address], [place] [address] Feb, [facility] [address] [id number] [address] [place] [address], [place] [address] Feb, [facility] [address] [id number] [address] [place] [address], [place] [address] Feb, [facility] [address] [id number] [address] [place] [address], [place] [address] Jan, [facility] [address] [id number] [address] [place] [address], [place] [address] Jan, [facility] [address] [id number] [address] [place] [address], [place] [address] Jan, [facility] [address] [id number] [address] [place] [address], [place] [address] Jan, [facility] [address] [id number] [address] [place] [address], [place] [address] Jan, [facility] [address] [id number] [address] [place] [address], [place] [address] Jan, [facility] [address] [id number] [address] [place] [address], [place] [address] Jan, [facility] [address] [id number] [address] [place] [address], [place] [address] Jan, [facility] [address] [id number] [address] [place] [address], [place] [address] Jan, [facility] [address] [id number] [address] [place] [address], [place] [address] Jan, [facility] [address] [id number] [address] [place] [address], [place] [address] Jan, [facility] [address] [id number] [address] [place] [address], [place] [address] Dec, [facility] [address] [id number] [address] [place] [address], [place] [address] Dec, [facility] [address] [id number] [address] [place] [address], [place] [address] Dec, [facility] [address] [id number] [address] [place] [address], [place] [address] Dec, [facility] [address] [id number] [address] [place] [address], [place] [address] Dec, [facility] [address] [id number] [address] [place] [address], [place] [address] Dec, [facility] [address] [id number] [address] [place] [address], [place] [address] Nov, [facility] [address] [id number] [address] [place] [address], [place] [address] Nov, [facility] [address] [id number] [address] [place] [address], [place] [address] Nov, [facility] [address] [id number] [address] [place] [address], [place] [address] Nov, [facility] [address] [id number] [address] [place] [address], [place] [address] Nov, [facility] [address] [id number] [address] [place] [address], [place] [address] Nov, [facility] [address] [id number] [address] [place] [address], [place] [address] Oct, [facility] [address] [id number] [address] [place] [address], [place] [address] Oct, [facility] [address] [id number] [address] [place] [address], [place] [address] Oct, [facility] [address] [id number] [address] [place] [address] Oct, [facility] [address] [id number] [address] [place] [address], [place] [address] Oct, [facility] [address] [id number] [address] [place] [address], [place] [address] Oct, [facility] [address] [id number] [address] [place] [address], [place] [address] Sep, [facility] [address] [id number] [address] [place] [address], [place] [address] Sep, [facility] [address] [id number] [address] [place] [address], [place] [address] Sep, [facility] [address] [id number] [address] [place] [address], [place] [address] Sep, [facility] [address] [id number] [address] [place] [address], [place] [address] Aug, [facility] [address] [id number] [address] [place] [address], [place] [address] Aug, [facility] [address] [id number] [address] [place] [address], [place] [address] Jul, [facility] [address] [id number] [address] [place] [address], [place] [address] Jul, [facility] [address] [id number] [address] [place] [address], [place] [address] Jul, [facility] [address] [id number] [address] [place] [address], [place] [address] Jul, [facility] [address] [id number] [address] [place] [address], [place] [address] Jul, [facility] [address] [id number] [address] [place] [address], [place] [address] Jul, [facility] [address] [id number] [address] [place] [address], [place] [address] June, [facility] [address] [id number] [address] [place] [address], [place] [address] June, [facility] [address] [id number] [address] [place] [address], [place] [address] June, [facility] [address] [id number] [address] [place] [address], [place] [address] June, [facility] [address] [id number] [address] [place] [address], [place] [address] June, [facility] [address] [id number] [facility] [address] June, [facility] [address] [id number] [address] [place] [address], [place] [address] June, [facility] [address] [id number] [address] [place] [address], [place] [address] June, [facility] [address] [id number] [address] [place] [address], [place] [address] June, [facility] [address] [id number] [address] [place] [address], [place] [address] June, [facility] [address] [id number] [address] [place] [address], [place] [address] June, [facility] [address] [id number] [address] [place] [address], [place] [address] June, [facility] [address] [id number] [address] [place] [address], [place] [address] June, [facility] [address] [id number] [address] [place] [address], [place] [address] June, [facility] [address] [id number] [address] [place] [address], [place] [address] June, [facility] [address] [id number] [address] [place] [address], [place] [address] June, [facility] [address] [id number] [address] [place] [address], [place] [address] May, [facility] [address] [id number] [address] [place] [address], [place] [address] May, [facility] [address] [id number] [address] [place] [address], [place] [address] May, [facility] [address] [id number] [address] [place] [address], [place] [address] May, [facility] [address] [id number] [address] [place] [address], [place] [address] 31 Apr, 2013 [facility] [address] [id number] [address] [place] [address], [place] [address] 31 Apr, 2013 [facility] [address] [id number] [address] [place] [address], [place] [address] 18 Apr, 2013 [facility] [address] [id number] [address] [place] [address], [place] [address] 18 Apr, 2013 [facility] [address] [id number] [address] [place] [address], [place] [address] 14 Apr, 2013 [facility] [address] [id number] [address] [place] [address], [place] [address] 14 Apr, 2013 [facility] [address] [id number] [address] [place] [address], [place] [address] 25 Mar, 2013 [facility] [address] [id number] [address] [place] [address], [place] [address] Mar, [facility] [address] [id number] [address] [place] [address], [place] [address] Mar, [facility] [address] [id number] [address] [place] [address], [place] [address] 18 Mar, 2013 [facility] [address] [id number] [address] [place] [address], [place] [address] 18 Mar, 2013 [facility] [address] [id number] [address] [place] [address], [place] [address] Feb, [facility] [address] [id number] [address] [place] [address], [place] [address] Feb, [facility] [address] [id number] [address] [place] [address], [place] [address] Feb, [facility] [address] [id number] [address] [place] [address], [place] [address] Feb, [facility] [address] [id number] [address] [place] [address], [place] [address] Feb, [facility] [address] [id number] [address] [place] [address], [place] [address] Feb, [facility] [address] [id number] [address] [place] [address], [place] [address] Jan, [facility] [address] [id number] [address] [place] [address], [place] [address] Jan, [facility] [address] [id number] [address] [place] [address], [place] [address] Jan, [facility] [address] [id number] [address] [place] [address], [place] [address] Jan, [facility] [address] [id number] [address] [place] [address], [place] [address] Dec, [facility] [address] [id number] [address] [place] [address], [place] [address] Dec, [facility] [address] [id number] [address] [place] [address], [place] [address] Dec, [facility] [address] [id number] [address] [place] [address], [place] [address] Dec, [facility] [address] [id number] [address] [place] [address], [place] [address] Dec, [facility] [address] [id number] [address] [place] [address], [place] [address] Dec, [facility] [address] [id number] [address] [place] [address], [place] [address] Nov, [facility] [address] [id number] [address] [place] [address], [place] [address] Nov, [facility] [address] [id number] [address] [place] [address], [place] [address] Nov, [facility] [address] [id number] [address] [place] [address], [place] [address] Nov, [facility] [address] [id number] [address] [place], [place] [address] [address] Nov, [facility] [address] [id number] [address] [place] [address] Nov, [facility] [address] [id number] [address] [place] [address] Oct, [facility] [address] [id number] [address] [place] [address] Oct, [facility] [address] [id number] [address] [place] [address] Sep, [facility] [address] [id number] [address] [place] [address] Sep, [facility] [address] [id number] [address] [place] [address] Sep, [facility] [address] [id number] [address] [place] [address] Sep, [facility] [address] [id number] [address] [place] [address] Aug, IMMUNIZATIONS No Known Immunizations SOCIAL HISTORY Never Assessed REASON FOR VISIT PLAN OF CARE VITAL SIGNS Blood pressure systolic 126 mmHg 2013-07-23 Blood pressure diastolic 86 mmHg 2013-07-23 MEDICATIONS Unknown Medications RESULTS No Results PROCEDURES No Known procedures INSTRUCTIONS MEDICATIONS ADMINISTERED No Known Medications MEDICAL (GENERAL) HISTORY Type Description Date Medical History obesity Medical History arthritis back Medical History RLS Medical History migraines Surgical History cholecystectomy 2005 Surgical History orthopedic surgery- bulging disks at L4/L5 since 2008,bilat hip replacement, bilat knee replacement
--- OUTSIDE RECORDS SUMMARY | 2019-05-20 06:55 | XMS REPORT ---
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 32741464 Problem Edema 782.3 Active 552668028 Problem Pain in joint, shoulder region 719.41 Active 134885075 Problem Lumbago 724.2 Active 459372302 Problem Anxiety state, unspecified 300.00 Act ahmet [id number] ALLERGIES No Information ENCOUNTERS Encounter Location Date Diagnosis [facility] [address] [id number] [address] [place] [address] June, [facility] [address] [facility] [id number] [address] [place] [address] June, [facility] [address] [facility] [id number] [address] [place] [address] 29 May, 2014 [facility] [address] [facility] [id number] [address] [place] [address] 28 May, 2014 Obesity 278.00 and Lumbago 7 24.2 [facility] [address] [facility] [id number] [address] [place] [address] 14 May, 2014 [facility] [address] [facility] [id number] [address] [place] [address] 13 May, 2014 [facility] [address] [id number] [address] [place] [address] 18 Apr, 2014 [facility] [address] [id number] [address] [place] [address], [place] [address] 18 Apr, 2014 [facility] [address] [id number] [address] [place] [address], [place] [address] 18 Apr, 2014 [facility] [address] [id number] [address] [place] [address] 18 Apr, 2014 [facility] [address] [id number] [address] [place] [address] 11 Apr, 2014 [facility] [address] [id number] [address] [place] [address], [place] [address] Apr, [facility] [address] [id number] [address] [place] [address] Mar, [facility] [address] [id number] [address] [place] [address] Mar, [facility] [address] [id number] [address] [place] [address] Mar, [facility] [address] [id number] [address] [place] [address], [place] [address] Mar, [facility] [address] [id number] [address] [place] [address] 16 Mar, 2014 [facility] [address] [id number] [address] [place] [address] Mar, [facility] [address] [id number] [address] [place] [address] Feb, [facility] [address] [id number] [address] [place] [address] Feb, [facility] [address] [id number] [address] [place] [address] Feb, [facility] [address] [id number] [address] [place] [address] Feb, [facility] [address] [id number] [address] [place] [address], [place] [address] Feb, [facility] [address] [id number] [address] [place] [address], [place] [address] Feb, [facility] [address] [id number] [address] [place] [address], [place] [address] Jan, [facility] [address] [id number] [address] [place] [address], [place] [address] Jan, [facility] [address] [id number] [address] [place] [address], [place] [address] Jan, [facility] [address] [id number] [address] [place] [address], [place] [address] Jan, [facility] [address] [id number] [address] [place] [address], [place] [address] Jan, [facility] [address] [id number] [address] [place] [address], [place] [address] Jan, [facility] [address] [id number] [address] [place] [address], [place] [address] Jan, [facility] [address] [id number] [address] [place] [address], [place] [address] Jan, [facility] [address] [id number] [address] [place] [address], [place] [address] Jan, [facility] [address] [id number] [address] [place] [address], [place] [address] Jan, [facility] [address] [id number] [address] [place] [address], [place] [address] Jan, [facility] [address] [id number] [address] [place] [address], [place] [address] Dec, [facility] [address] [id number] [address] [place] [address], [place] [address] Dec, [facility] [address] [id number] [address] [place] [address], [place] [address] Dec, [facility] [address] [id number] [address] [place] [address], [place] [address] Dec, [facility] [address] [id number] [address] [place] [address], [place] [address] Dec, [facility] [address] [id number] [address] [place] [address], [place] [address] Dec, [facility] [address] [id number] [address] [place] [address], [place] [address] Nov, [facility] [address] [id number] [address] [place] [address], [place] [address] Nov, [facility] [address] [id number] [address] [place] [address], [place] [address] Nov, [facility] [address] [id number] [address] [place] [address], [place] [address] Nov, [facility] [address] [id number] [address] [place] [address], [place] [address] Nov, [facility] [address] [id number] [address] [place] [address], [place] [address] Nov, [facility] [address] [id number] [address] [place] [address] Oct, [facility] [address] [id number] [address] [place] [address] Oct, 2013 [facility] [address] [id number] [address] [place] [address] Oct, 2013 [facility] [address] [id number] [address] [place] [address], [place] [address] Oct, 2013 [facility] [address] [id number] [address] [place] [address], [place] [address] Oct, 2013 [facility] [address] [id number] [address] [place] [address], [place] [address] Oct, 2013 [facility] [address] [id number] [address] [place] [address], [place] [address] Sep, [facility] [address] [id number] [address] [place] [address], [place] [address] Sep, [facility] [address] [id number] [address] [place] [address], [place] [address] Sep, [facility] [address] [id number] [address] [place] [address], [place] [address] Sep, [facility] [address] [id number] [address] [place] [address], [place] [address] Aug, [facility] [address] [id number] [address] [place] [address], [place] [address] Aug, [facility] [address] [id number] [address] [place] [address], [place] [address] Jul, [facility] [address] [id number] [address] [place] [address], [place] [address] Jul, [facility] [address] [id number] [address] [place] [address], [place] [address] Jul, [facility] [address] [id number] [address] [place] [address], [place] [address] Jul, [facility] [address] [id number] [address] [place] [address], [place] [address] Jul, [facility] [address] [id number] [address] [place] [address], [place] [address] Jul, [facility] [address] [id number] [address] [place] [address], [place] [address] June, [facility] [address] [id number] [address] [place] [address], [place] [address] June, [facility] [address] [id number] [address] [place] [address], [place] [address] June, [facility] [address] [id number] [address] [place] [address], [place] [address] June, [facility] [address] [id number] [address] [place] [address], [place] [address] June, [facility] [address] [id number] [address] [place] [address], [place] [address] June, [facility] [address] [id number] [address] [place] [address], [place] [address] June, [facility] [address] [id number] [address] [place] [address], [place] [address] June, [facility] [address] [id number] [address] [place] [address], [place] [address] June, [facility] [address] [id number] [address] [place] [address], [place] [address] June, [facility] [address] [id number] [address] [place] [address], [place] [address] June, [facility] [address] [id number] [address] [place] [address], [place] [address] June, [facility] [address] [id number] [address] [place] [address], [place] [address] June, [facility] [address] [id number] [address] [place] [address], [place] [address] June, [facility] [address] [id number] [address] [place] [address], [place] [address] June, [facility] [address] [id number] [address] [place] [address], [place] [address] June, [facility] [address] [id number] [address] [place] [address], [place] [address] May, [facility] [address] [id number] [address] [place] [address], [place] [address] May, [facility] [address] [id number] [address] [place] [address], [place] [address] May, [facility] [address] [id number] [address] [place] [address] 16 May, 2013 [facility] [address] [id number] [address] [place] [address], [place] [address] 31 Apr, 2013 [facility] [address] [id number] [address] [place] [address], [place] [address] 31 Apr, 2013 [facility] [address] [id number] [address] [place] [address], [place] [address] 18 Apr, 2013 [facility] [address] [id number] [address] [place] [address], [place] [address] 18 Apr, 2013 [facility] [address] [id number] [address] [place] [address], [place] [address] 14 Apr, 2013 [facility] [address] [id number] [address] [place] [address], [place] [address] 14 Apr, 2013 [facility] [address] [id number] [address] [place] [address], [place] [address] 25 Mar, 2013 [facility] [address] [id number] [address] [place] [address], [place] [address] Mar, [facility] [address] [id number] [address] [place] [address], [place] [address] Mar, [facility] [address] [id number] [address] [place] [address], [place] [address] 18 Mar, 2013 [facility] [address] [id number] [address] [place] [address], [place] [address] Mar, [facility] [address] [id number] [address] [place] [address], [place] [address] Feb, [facility] [address] [id number] [address] [place] [address], [place] [address] Feb, [facility] [address] [id number] [address] [place] [address], [place] [address] Feb, [facility] [address] [id number] [address] [place] [address], [place] [address] Feb, [facility] [address] [id number] [address] [place] [address], [place] [address] Feb, [facility] [address] [id number] [address] [place] [address], [place] [address] Feb, [facility] [address] [id number] [address] [place] [address], [place] [address] Jan, [facility] [address] [id number] [address] [place] [address], [place] [address] Jan, [facility] [address] [id number] [address] [place] [address], [place] [address] Jan, [facility] [address] [id number] [address] [place] [address], [place] [address] Jan, [facility] [address] [id number] [address] [place] [address], [place] [address] Dec, [facility] [address] [id number] [address] [place] [address], [place] [address] Dec, [facility] [address] [id number] [address] [place] [address], [place] [address] Dec, [facility] [address] [id number] [address] [place] [address], [place] [address] Dec, [facility] [address] [id number] [address] [place] [address], [place] [address] Dec, [facility] [address] [id number] [address] [place] [address], [place] [address] Dec, [facility] [address] [id number] [address] [place] [address], [place] [address] Nov, [facility] [address] [id number] [address] [place] [address], [place] [address] Nov, [facility] [address] [id number] [address] [place] [address], [place] [address] Nov, [facility] [address] [id number] [address] [place] [address], [place] [address] Nov, [facility] [address] [id number] [address] [place] [address] Nov, [facility] [address] [id number] [address] [place] [address] Nov, [facility] [address] [id number] [address] [place] [address] Oct, [facility] [address] [id number] [address] [place] [address] Oct, [facility] [address] [id number] [address] [place] [address] Sep, [facility] [address] [id number] [address] [place] [address] Sep, [facility] [address] [id number] [address] [place] [address] Sep, [facility] [address] [id number] [address] [place] [address] Sep, [facility] [address] [id number] [address] [place] [address] Aug, IMMUNIZATIONS No Known Immunizations SOCIAL HISTORY [...]
--- OUTSIDE RECORDS SUMMARY | 2019-05-20 06:55 | XMS REPORT ---
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 56140134 Problem Edema 782.3 Active 886657541 Problem Pain in joint, shoulder region 719.41 Active 430382018 Problem Lumbago 724.2 Active 050168782 Problem Anxiety state, unspecified 300.00 Act ahmet [id number] ALLERGIES No Information ENCOUNTERS Encounter Location Date Diagnosis [facility] [address] [id number] [address] [place] [id number] June, [facility] [address] [facility] [id number] [address] [place] [phone] June, [facility] [address] [facility] [id number] [address] [place] [id number] 29 May, 2014 [facility] [address] [facility] [id number] [address] [place] [id number] 28 May, 2014 Obesity 278.00 and Lumbago 7 24.2 [facility] [address] [facility] [id number] [address] [place] [id number] 14 May, 2014 [facility] [address] [facility] [id number] [address] [place] [id number] 13 May, 2014 [facility] [address] [id number] [address] [place] [id number] 18 Apr, 2014 [facility] [address] [id number] [address] [place] [address], [place] [address] 18 Apr, 2014 [facility] [address] [id number] [address] [place] [address], [place] [id number] 18 Apr, 2014 [facility] [address] [id number] [address] [place] [id number] 18 Apr, 2014 [facility] [address] [id number] [address] [place] [id number] 11 Apr, 2014 [facility] [address] [id number] [address] [place] [address], [place] [address] Apr, [facility] [address] [id number] [address] [place] [id number] Mar, [facility] [address] [id number] [address] [place] [phone] Mar, [facility] [address] [id number] [address] [place] [phone] Mar, [facility] [address] [id number] [address] [place] [address], [place] [address] Mar, [facility] [address] [id number] [address] [place] [id number] 16 Mar, 2014 [facility] [address] [id number] [address] [place] [id number] Mar, [facility] [address] [id number] [address] [place] [phone] Feb, [facility] [address] [id number] [address] [place] [id number] Feb, [facility] [address] [id number] [address] [place] [id number] Feb, [facility] [address] [id number] [address] [place] [phone] Feb, [facility] [address] [id number] [address] [place] [address], [place] [address] Feb, [facility] [address] [id number] [address] [place] [address], [place] [address] Feb, [facility] [address] [id number] [address] [place] [address], [place] [address] Jan, [facility] [address] [id number] [address] [place] [address], [place] [address] Jan, [facility] [address] [id number] [address] [place] [address], [place] [address] Jan, [facility] [address] [id number] [address] [place] [address], [place] [address] Jan, [facility] [address] [id number] [address] [place] [address], [place] [address] Jan, [facility] [address] [id number] [address] [place] [address], [place] [address] Jan, [facility] [address] [id number] [address] [place] [address], [place] [address] Jan, [facility] [address] [id number] [address] [place] [address], [place] [address] Jan, [facility] [address] [id number] [address] [place] [address], [place] [address] Jan, [facility] [address] [id number] [address] [place] [address], [place] [address] Jan, [facility] [address] [id number] [address] [place] [address], [place] [address] Jan, [facility] [address] [id number] [address] [place] [address], [place] [address] Dec, [facility] [address] [id number] [address] [place] [address], [place] [address] Dec, [facility] [address] [id number] [address] [place] [address], [place] [address] Dec, [facility] [address] [id number] [address] [place] [address], [place] [address] Dec, [facility] [address] [id number] [address] [place] [address], [place] [address] Dec, [facility] [address] [id number] [address] [place] [address], [place] [address] Dec, [facility] [address] [id number] [address] [place] [address], [place] [address] Nov, [facility] [address] [id number] [address] [place] [address], [place] [address] Nov, [facility] [address] [id number] [address] [place] [address], [place] [address] Nov, [facility] [address] [id number] [address] [place] [address], [place] [address] Nov, [facility] [address] [id number] [address] [place] [address], [place] [address] Nov, [facility] [address] [id number] [address] [place] [address], [place] [address] Nov, [facility] [address] [id number] [address] [place] [phone] Oct, [facility] [address] [id number] [address] [place] [id number] Oct, 2013 [facility] [address] [id number] [address] [place] [phone] Oct, 2013 [facility] [address] [id number] [address] [place] [address], [place] [address] Oct, 2013 [facility] [address] [id number] [address] [place] [address], [place] [address] Oct, 2013 [facility] [address] [id number] [address] [place] [address], [place] [address] Oct, 2013 [facility] [address] [id number] [address] [place] [address], [place] [address] Sep, [facility] [address] [id number] [address] [place] [address], [place] [address] Sep, [facility] [address] [id number] [address] [place] [address], [place] [address] Sep, [facility] [address] [id number] [address] [place] [address], [place] [address] Sep, [facility] [address] [id number] [address] [place] [address], [place] [address] Aug, [facility] [address] [id number] [address] [place] [address], [place] [address] Aug, [facility] [address] [id number] [address] [place] [address], [place] [address] Jul, [facility] [address] [id number] [address] [place] [address], [place] [address] Jul, [facility] [address] [id number] [address] [place] [address], [place] [address] Jul, [facility] [address] [id number] [address] [place] [address], [place] [address] Jul, [facility] [address] [id number] [address] [place] [address], [place] [address] Jul, [facility] [address] [id number] [address] [place] [address], [place] [address] Jul, [facility] [address] [id number] [address] [place] [address], [place] [address] June, [facility] [address] [id number] [address] [place] [address], [place] [address] June, [facility] [address] [id number] [address] [place] [address], [place] [address] June, [facility] [address] [id number] [address] [place] [address], [place] [address] June, [facility] [address] [id number] [address] [place] [address], [place] [address] June, [facility] [address] [id number] [address] [place] [address], [place] [address] June, [facility] [address] [id number] [address] [place] [address], [place] [address] June, [facility] [address] [id number] [address] [place] [address], [place] [address] June, [facility] [address] [id number] [address] [place] [address], [place] [address] June, [facility] [address] [id number] [address] [place] [address], [place] [address] June, [facility] [address] [id number] [address] [place] [address], [place] [address] June, [facility] [address] [id number] [address] [place] [address], [place] [address] June, [facility] [address] [id number] [address] [place] [address], [place] [address] June, [facility] [address] [id number] [address] [place] [address], [place] [address] June, [facility] [address] [id number] [address] [place] [address], [place] [address] June, [facility] [address] [id number] [address] [place] [address], [place] [address] June, [facility] [address] [id number] [address] [place] [address], [place] [address] May, [facility] [address] [id number] [address] [place] [address], [place] [address] May, [facility] [address] [id number] [address] [place] [address], [place] [address] May, [facility] [address] [id number] [address] [place] [id number] 16 May, 2013 [facility] [address] [id number] [address] [place] [address], [place] [address] 31 Apr, 2013 [facility] [address] [id number] [address] [place] [address], [place] [address] 31 Apr, 2013 [facility] [address] [id number] [address] [place] [address], [place] [address] 18 Apr, 2013 [facility] [address] [id number] [address] [place] [address], [place] [address] 18 Apr, 2013 [facility] [address] [id number] [address] [place] [address], [place] [address] 14 Apr, 2013 [facility] [address] [id number] [address] [place] [address], [place] [address] 14 Apr, 2013 [facility] [address] [id number] [address] [place] [address], [place] [address] 25 Mar, 2013 [facility] [address] [id number] [address] [place] [address], [place] [address] Mar, [facility] [address] [id number] [address] [place] [address], [place] [address] Mar, [facility] [address] [id number] [address] [place] [address], [place] [address] 18 Mar, 2013 [facility] [address] [id number] [address] [place] [address], [place] [address] Mar, [facility] [address] [id number] [address] [place] [address], [place] [address] Feb, [facility] [address] [id number] [address] [place] [address], [place] [address] Feb, [facility] [address] [id number] [address] [place] [address], [place] [address] Feb, [facility] [address] [id number] [address] [place] [address], [place] [address] Feb, [facility] [address] [id number] [address] [place] [address], [place] [address] Feb, [facility] [address] [id number] [address] [place] [address], [place] [address] Feb, [facility] [address] [id number] [address] [place] [address], [place] [address] Jan, [facility] [address] [id number] [address] [place] [address], [place] [address] Jan, [facility] [address] [id number] [address] [place] [address], [place] [address] Jan, [facility] [address] [id number] [address] [place] [address], [place] [address] Jan, [facility] [address] [id number] [address] [place] [address], [place] [address] Dec, [facility] [address] [id number] [address] [place] [address], [place] [address] Dec, [facility] [address] [id number] [address] [place] [address], [place] [address] Dec, [facility] [address] [id number] [address] [place] [address], [place] [address] Dec, [facility] [address] [id number] [address] [place] [address], [place] [address] Dec, [facility] [address] [id number] [address] [place] [address], [place] [address] Dec, [facility] [address] [id number] [address] [place] [address], [place] [address] Nov, [facility] [address] [id number] [address] [place] [address], [place] [address] Nov, [facility] [address] [id number] [address] [place] [address], [place] [address] Nov, [facility] [address] [id number] [address] [place] [address], [place] [address] Nov, [facility] [address] [id number] [address] [place] [address] Nov, [facility] [address] [id number] [address] [place] [address] Nov, [facility] [address] [id number] [address] [place] [address] Oct, [facility] [address] [id number] [address] [place] [id number] Oct, [facility] [address] [id number] [address] [place] [id number] Sep, [facility] [address] [id number] [address] [place] [id number] Sep, [facility] [address] [id number] [address] [place] [id number] Sep, [facility] [address] [id number] [address] [place] [id number] Sep, [facility] [address] [id number] [address] [place] [address] Aug, IMMUNIZATIONS No Known Immunizations SOCIAL HISTORY [...]
--- OUTSIDE RECORDS SUMMARY | 2019-05-20 06:55 | XMS REPORT ---
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 74265541 Problem Edema 782.3 Active 699878926 Problem Pain in joint, shoulder region 719.41 Active 194256727 Problem Lumbago 724.2 Active 493797375 Problem Anxiety state, unspecified 300.00 Act ahmet [id number] ALLERGIES No Information ENCOUNTERS Encounter Location Date Diagnosis [facility] [id number] [place] [address] June, [facility] [address] [facility] [id number] [address] [place] [address] June, [facility] [address] [facility] [id number] [address] [place] [address] 29 May, 2014 [facility] [address] [facility] [id number] [address] [place] [address] 28 May, 2014 Obesity 278.00 and Lumbago 7 24.2 [facility] [address] [facility] [id number] [address] [place] [address] 14 May, 2014 [facility] [address] [facility] [id number] [address] [place] [address] 13 May, 2014 [facility] [address] [place] [id number] [address] [place] [address] 18 Apr, 2014 [facility] [address] [id number] [address] [place] [address], [place] [address] 18 Apr, 2014 [facility] [address] [id number] [address] [place] [address], [place] [address] 18 Apr, 2014 [facility] [address] [id number] [address] [place] [address] 18 Apr, 2014 [facility] [address] [id number] [address] [place] [address] 11 Apr, 2014 [facility] [address] [id number] [address] [place] [address], [place] [address] Apr, [facility] [address] [id number] [address] [place] [address] Mar, [facility] [address] [id number] [address] [place] [address] Mar, [facility] [address] [id number] [address] [place] [address] Mar, [facility] [address] [id number] [address] [place] [address], [place] [address] Mar, [facility] [address] [id number] [address] [place] [address] 16 Mar, 2014 [facility] [address] [id number] [address] [place] [address] Mar, [facility] [address] [id number] [address] [place] [address] Feb, [facility] [address] [id number] [address] [place] [address] Feb, [facility] [address] [id number] [address] [place] [address] Feb, [facility] [address] [id number] [address] [place] [address] Feb, [facility] [address] [id number] [address] [place] [address], [place] [address] Feb, [facility] [address] [id number] [address] [place] [address], [place] [address] Feb, [facility] [address] [id number] [address] [place] [address], [place] [address] Jan, [facility] [address] [id number] [address] [place] [address], [place] [address] Jan, [facility] [address] [id number] [address] [place] [address], [place] [address] Jan, [facility] [address] [id number] [address] [place] [address], [place] [address] Jan, [facility] [address] [id number] [address] [place] [address], [place] [address] Jan, [facility] [address] [id number] [address] [place] [address], [place] [address] Jan, [facility] [address] [id number] [address] [place] [address], [place] [address] Jan, [facility] [address] [id number] [address] [place] [address], [place] [address] Jan, [facility] [address] [id number] [address] [place] [address], [place] [address] Jan, [facility] [address] [id number] [address] [place] [address], [place] [address] Jan, [facility] [address] [id number] [address] [place] [address], [place] [address] Jan, [facility] [address] [id number] [address] [place] [address], [place] [address] Dec, [facility] [address] [id number] [address] [place] [address], [place] [address] Dec, [facility] [address] [id number] [address] [place] [address], [place] [address] Dec, [facility] [address] [id number] [address] [place] [address], [place] [address] Dec, [facility] [address] [id number] [address] [place] [address], [place] [address] Dec, [facility] [address] [id number] [address] [place] [address], [place] [address] Dec, [facility] [address] [id number] [address] [place] [address], [place] [address] Nov, [facility] [address] [id number] [address] [place] [address], [place] [address] Nov, [facility] [address] [id number] [address] [place] [address], [place] [address] Nov, [facility] [address] [id number] [address] [place] [address], [place] [address] Nov, [facility] [address] [id number] [address] [place] [address], [place] [address] Nov, [facility] [address] [id number] [address] [place] [address], [place] [address] Nov, [facility] [address] [id number] [address] [place] [address] Oct, [facility] [address] [id number] [address] [place] [address] Oct, 2013 [facility] [address] [id number] [address] [place] [address] Oct, 2013 [facility] [address] [id number] [address] [place] [address], [place] [address] Oct, 2013 [facility] [address] [id number] [address] [place] [address], [place] [address] Oct, 2013 [facility] [address] [id number] [address] [place] [address], [place] [address] Oct, 2013 [facility] [address] [id number] [address] [place] [address], [place] [address] Sep, [facility] [address] [id number] [address] [place] [address], [place] [address] Sep, [facility] [address] [id number] [address] [place] [address], [place] [address] Sep, [facility] [address] [id number] [address] [place] [address], [place] [address] Sep, [facility] [address] [id number] [address] [place] [address], [place] [address] Aug, [facility] [address] [id number] [address] [place] [address], [place] [address] Aug, [facility] [address] [id number] [address] [place] [address], [place] [address] Jul, [facility] [address] [id number] [address] [place] [address], [place] [address] Jul, [facility] [address] [id number] [address] [place] [address], [place] [address] Jul, [facility] [address] [id number] [address] [place] [address], [place] [address] Jul, [facility] [address] [id number] [address] [place] [address], [place] [address] Jul, [facility] [address] [id number] [address] [place] [address], [place] [address] Jul, [facility] [address] [id number] [address] [place] [address], [place] [address] June, [facility] [address] [id number] [address] [place] [address], [place] [address] June, [facility] [address] [id number] [address] [place] [address], [place] [address] June, [facility] [address] [id number] [address] [place] [address], [place] [address] June, [facility] [address] [id number] [address] [place] [address], [place] [address] June, [facility] [address] [id number] [address] [place] [address], [place] [address] June, [facility] [address] [id number] [address] [place] [address], [place] [address] June, [facility] [address] [id number] [address] [place] [address], [place] [address] June, [facility] [address] [id number] [address] [place] [address], [place] [address] June, [facility] [address] [id number] [address] [place] [address], [place] [address] June, [facility] [address] [id number] [address] [place] [address], [place] [address] June, [facility] [address] [id number] [address] [place] [address], [place] [address] June, [facility] [address] [id number] [address] [place] [address], [place] [address] June, [facility] [address] [id number] [address] [place] [address], [place] [address] June, [facility] [address] [id number] [address] [place] [address], [place] [address] June, [facility] [address] [id number] [address] [place] [address], [place] [address] June, [facility] [address] [id number] [address] [place] [address], [place] [address] May, [facility] [address] [id number] [address] [place] [address], [place] [address] May, [facility] [address] [id number] [address] [place] [address], [place] [address] May, [facility] [address] [id number] [address] [place] [address] 16 May, 2013 [facility] [address] [id number] [address] [place] [address], [place] [address] 31 Apr, 2013 [facility] [address] [id number] [address] [place] [address], [place] [address] 31 Apr, 2013 [facility] [address] [id number] [address] [place] [address], [place] [address] 18 Apr, 2013 [facility] [address] [id number] [address] [place] [address], [place] [address] 18 Apr, 2013 [facility] [address] [id number] [address] [place] [address], [place] [address] 14 Apr, 2013 [facility] [address] [id number] [address] [place] [address], [place] [address] 14 Apr, 2013 [facility] [address] [id number] [address] [place] [address], [place] [address] 25 Mar, 2013 [facility] [address] [id number] [address] [place] [address], [place] [address] Mar, [facility] [address] [id number] [address] [place] [address], [place] [address] Mar, [facility] [address] [id number] [address] [place] [address], [place] [address] 18 Mar, 2013 [facility] [address] [id number] [address] [place] [address], [place] [address] Mar, [facility] [address] [id number] [address] [place] [address], [place] [address] Feb, [facility] [address] [id number] [address] [place] [address], [place] [address] Feb, [facility] [address] [id number] [address] [place] [address], [place] [address] Feb, [facility] [address] [id number] [address] [place] [address], [place] [address] Feb, [facility] [address] [id number] [address] [place] [address], [place] [address] Feb, [facility] [address] [id number] [address] [place] [address], [place] [address] Feb, [facility] [address] [id number] [address] [place] [address], [place] [address] Jan, [facility] [address] [id number] [address] [place] [address], [place] [address] Jan, [facility] [address] [id number] [address] [place] [address], [place] [address] Jan, [facility] [address] [id number] [address] [place] [address], [place] [address] Jan, [facility] [address] [id number] [address] [place] [address], [place] [address] Dec, [facility] [address] [id number] [address] [place] [address], [place] [address] Dec, [facility] [address] [id number] [address] [place] [address], [place] [address] Dec, [facility] [address] [id number] [address] [place] [address], [place] [address] Dec, [facility] [address] [id number] [address] [place] [address], [place] [address] Dec, [facility] [address] [id number] [address] [place] [address], [place] [address] Dec, [facility] [address] [id number] [address] [place] [address], [place] [address] Nov, [facility] [address] [id number] [address] [place] [address], [place] [address] Nov, [facility] [address] [id number] [address] [place] [address], [place] [address] Nov, [facility] [address] [id number] [address] [place] [address], [place] [address] Nov, [facility] [address] [id number] [address] [place] [address] Nov, [facility] [address] [id number] [address] [place] [address] Nov, [facility] [address] [id number] [address] [place] [address] Oct, [facility] [address] [id number] [address] [place] [address] Oct, [facility] [address] [id number] [address] [place] [address] Sep, [facility] [address] [id number] [address] [place] [address] Sep, [facility] [address] [id number] [address] [place] [address] Sep, [facility] [address] [id number] [address] [place] [address] Sep, [facility] [address] [id number] [address] [place] [address] Aug, IMMUNIZATIONS No Known Immunizations SOCIAL HISTORY [...]
[2019-05-20] MEDS ORDERED: LACTATED RINGERS 1,000 ML IV PRN (06:56)
--- OUTSIDE RECORDS SUMMARY | 2019-05-20 06:56 | XMS REPORT ---
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 [id number] [address] [place] [address] June, [facility] [address] [facility] [id number] [address] [place] [phone] 29 May, 2014 [facility] [address] [facility] [id number] [address] [place] [address] 28 May, 2014 Obesity 278.00 and Lumbago 7 24.2 [facility] [address] [facility] [id number] [address] [place] [id number] 14 May, 2014 [facility] [address] [facility] [id number] [address] [place] [address] 13 May, 2014 [facility] [address] [id number] [address] [place] [id number] 18 Apr, 2014 [facility] [address] [id number] [address] [place] [address], [place] [address] 18 Apr, 2014 [facility] [address] [id number] [address] [place] [address], [place] [address] 18 Apr, 2014 [facility] [address] [id number] [address] [place] [phone] 18 Apr, 2014 [facility] [address] [id number] [address] [place] [phone] 11 Apr, 2014 [facility] [address] [id number] [address] [place] [address], [place] [address] Apr, [facility] [address] [id number] [address] [place] [address] Mar, [facility] [address] [id number] [address] [place] [phone] Mar, [facility] [address] [id number] [address] [place] [address] Mar, [facility] [address] [id number] [address] [place] [address], [place] [address] Mar, [facility] [address] [id number] [address] [place] [id number] 16 Mar, 2014 [facility] [address] [id number] [address] [place] [address] Mar, [facility] [address] [id number] [address] [place] [address] Feb, [facility] [address] [id number] [address] [place] [address] Feb, [facility] [address] [id number] [address] [place] [address] Feb, [facility] [address] [id number] [address] [place] [address] Feb, [facility] [address] [id number] [address] [place] [address], [place] [address] Feb, [facility] [address] [id number] [address] [place] [address], [place] [address] Feb, [facility] [address] [id number] [address] [place] [address], [place] [address] Jan, [facility] [address] [id number] [address] [place] [address], [place] [address] Jan, [facility] [address] [id number] [address] [place] [address], [place] [address] Jan, [facility] [address] [id number] [address] [place] [address], [place] [address] Jan, [facility] [address] [id number] [address] [place] [address], [place] [address] Jan, [facility] [address] [id number] [address] [place] [address], [place] [address] Jan, [facility] [address] [id number] [address] [place] [address], [place] [address] Jan, [facility] [address] [id number] [address] [place] [address], [place] [address] Jan, [facility] [address] [id number] [address] [place] [address], [place] [address] Jan, [facility] [address] [id number] [address] [place] [address], [place] [address] Jan, [facility] [address] [id number] [address] [place] [address], [place] [address] Jan, [facility] [address] [id number] [address] [place] [address], [place] [address] Dec, [facility] [address] [id number] [address] [place] [address], [place] [address] Dec, [facility] [address] [id number] [address] [place] [address], [place] [address] Dec, [facility] [address] [id number] [address] [place] [address], [place] [address] Dec, [facility] [address] [id number] [address] [place] [address], [place] [address] Dec, [facility] [address] [id number] [address] [place] [address], [place] [address] Dec, [facility] [address] [id number] [address] [place] [address], [place] [address] Nov, [facility] [address] [id number] [address] [place] [address], [place] [address] Nov, [facility] [address] [id number] [address] [place] [address], [place] [address] Nov, [facility] [address] [id number] [address] [place] [address], [place] [address] Nov, [facility] [address] [id number] [address] [place] [address], [place] [address] Nov, [facility] [address] [id number] [address] [place] [address], [place] [address] Nov, [facility] [address] [id number] [address] [place] [address] Oct, [facility] [address] [id number] [address] [place] [address] Oct, 2013 [facility] [address] [id number] [address] [place] [address] Oct, 2013 [facility] [address] [id number] [address] [place] [address], [place] [address] Oct, 2013 [facility] [address] [id number] [address] [place] [address], [place] [address] Oct, 2013 [facility] [address] [id number] [address] [place] [address], [place] [address] Oct, 2013 [facility] [address] [id number] [address] [place] [address], [place] [address] Sep, [facility] [address] [id number] [address] [place] [address], [place] [address] Sep, [facility] [address] [id number] [address] [place] [address], [place] [address] Sep, [facility] [address] [id number] [address] [place] [address], [place] [address] Sep, [facility] [address] [id number] [address] [place] [address], [place] [address] Aug, [facility] [address] [id number] [address] [place] [address], [place] [address] Aug, [facility] [address] [id number] [address] [place] [address], [place] [address] Jul, [facility] [address] [id number] [address] [place] [address], [place] [address] Jul, [facility] [address] [id number] [address] [place] [address], [place] [address] Jul, [facility] [address] [id number] [address] [place] [address], [place] [address] Jul, [facility] [address] [id number] [address] [place] [address], [place] [address] Jul, [facility] [address] [id number] [address] [place] [address], [place] [address] Jul, [facility] [address] [id number] [address] [place] [address], [place] [address] June, [facility] [address] [id number] [address] [place] [address], [place] [address] June, [facility] [address] [id number] [address] [place] [address], [place] [address] June, [facility] [address] [id number] [address] [place] [address], [place] [address] June, [facility] [address] [id number] [address] [place] [address], [place] [address] June, [facility] [address] [id number] [address] [place] [address], [place] [address] June, [facility] [address] [id number] [address] [place] [address], [place] [address] June, [facility] [address] [id number] [address] [place] [address], [place] [address] June, [facility] [address] [id number] [address] [place] [address], [place] [address] June, [facility] [address] [id number] [address] [place] [address], [place] [address] June, [facility] [address] [id number] [address] [place] [address], [place] [address] June, [facility] [address] [id number] [address] [place] [address], [place] [address] June, [facility] [address] [id number] [address] [place] [address], [place] [address] June, [facility] [address] [id number] [address] [place] [address], [place] [address] June, [facility] [address] [id number] [address] [place] [address], [place] [address] June, [facility] [address] [id number] [address] [place] [address], [place] [address] June, [facility] [address] [id number] [address] [place] [address], [place] [address] May, [facility] [address] [id number] [address] [place] [address], [place] [address] May, [facility] [address] [id number] [address] [place] [address], [place] [address] May, [facility] [address] [id number] [address] [place] [id number] 16 May, 2013 [facility] [address] [id number] [address] [place] [address], [place] [address] 31 Apr, 2013 [facility] [address] [id number] [address] [place] [address], [place] [address] 31 Apr, 2013 [facility] [address] [id number] [address] [place] [address], [place] [address] 18 Apr, 2013 [facility] [address] [id number] [address] [place] [address], [place] [address] 18 Apr, 2013 [facility] [address] [id number] [address] [place] [address], [place] [address] 14 Apr, 2013 [facility] [address] [id number] [address] [place] [address], [place] [address] 14 Apr, 2013 [facility] [address] [id number] [address] [place] [address], [place] [address] 25 Mar, 2013 [facility] [address] [id number] [address] [place] [address], [place] [address] Mar, [facility] [address] [id number] [address] [place] [address], [place] [address] Mar, [facility] [address] [id number] [address] [place] [address], [place] [address] 18 Mar, 2013 [facility] [address] [id number] [address] [place] [address], [place] [address] Mar, [facility] [address] [id number] [address] [place] [address], [place] [address] Feb, [facility] [address] [id number] [address] [place] [address], [place] [address] Feb, [facility] [address] [id number] [address] [place] [address], [place] [address] Feb, [facility] [address] [id number] [address] [place] [address], [place] [address] Feb, [facility] [address] [id number] [address] [place] [address], [place] [address] Feb, [facility] [address] [id number] [address] [place] [address], [place] [address] Feb, [facility] [address] [id number] [address] [place] [address], [place] [address] Jan, [facility] [address] [id number] [address] [place] [address], [place] [address] Jan, [facility] [address] [id number] [address] [place] [address], [place] [address] Jan, [facility] [address] [id number] [address] [place] [address], [place] [address] Jan, [facility] [address] [id number] [address] [place] [address], [place] [address] Dec, [facility] [address] [id number] [address] [place] [address], [place] [address] Dec, [facility] [address] [id number] [address] [place] [address], [place] [address] Dec, [facility] [address] [id number] [address] [place] [address], [place] [address] Dec, [facility] [address] [id number] [address] [place] [address], [place] [address] Dec, [facility] [address] [id number] [address] [place] [address], [place] [address] Dec, [facility] [address] [id number] [address] [place] [address], [place] [address] Nov, [facility] [address] [id number] [address] [place] [address], [place] [address] Nov, [facility] [address] [id number] [address] [place] [address], [place] [address] Nov, [facility] [address] [id number] [address] [place] [address], [place] [address] Nov, [facility] [address] [id number] [address] [place] [address] Nov, [facility] [address] [id number] [address] [place] [address] Nov, [facility] [address] [id number] [address] [place] [address] Oct, [facility] [address] [id number] [address] [place] [address] Oct, [facility] [address] [id number] [address] [place] [address] Sep, [facility] [address] [id number] [address] [place] [address] Sep, [facility] [address] [id number] [address] [place] [address] Sep, [facility] [address] [id number] [address] [place] [address] Sep, [facility] [address] [id number] [address] [place] [address] Aug, IMMUNIZATIONS No Known Immunizations SOCIAL HISTORY [...]
--- OUTSIDE RECORDS SUMMARY | 2019-05-20 06:56 | XMS REPORT ---
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 42920308 Problem Edema 782.3 Active 074504597 Problem Pain in joint, shoulder region 719.41 Active 798928995 Problem Lumbago 724.2 Active 381782288 Problem Anxiety state, unspecified 300.00 Act ahmet [id number] ALLERGIES No Information ENCOUNTERS Encounter Location Date Diagnosis [facility] [place] [address] [id number] [address] [place] [id number] June, [facility] [place] [address] [facility] [id number] [address] [place] [phone] June, [facility] [place] [address] [facility] [id number] [address] [place] [id number] 29 May, 2014 [facility] [place] [address] [facility] [id number] [address] [place] [id number] 28 May, 2014 Obesity 278.00 and Lumbago 7 24.2 [facility] [place] [address] [facility] [id number] [address] [place] [id number] 14 May, 2014 [facility] [place] [address] [facility] [id number] [address] [place] [id number] 13 May, 2014 [facility] [place] [address] [id number] [address] [place] [id number] 18 Apr, 2014 [facility] [address] [id number] [address] [place] [address], [place] [id number] 18 Apr, 2014 [facility] [address] [id number] [address] [place] [address], [place] [address] 18 Apr, 2014 [facility] [address] [id number] [address] [place] [id number] 18 Apr, 2014 [facility] [address] [id number] [address] [place] [id number] 11 Apr, 2014 [facility] [address] [id number] [address] [place] [address], [place] [address] Apr, [facility] [address] [id number] [address] [place] [phone] Mar, [facility] [address] [id number] [address] [place] [phone] Mar, [facility] [address] [id number] [address] [place] [phone] Mar, [facility] [address] [id number] [address] [place] [address], [place] [address] Mar, [facility] [address] [id number] [address] [place] [id number] 16 Mar, 2014 [facility] [address] [id number] [address] [place] [phone] Mar, [facility] [address] [id number] [address] [place] [phone] Feb, [facility] [address] [id number] [address] [place] [phone] Feb, [facility] [address] [id number] [address] [place] [phone] Feb, [facility] [address] [id number] [address] [place] [phone] Feb, [facility] [address] [id number] [address] [place] [address], [place] [address] Feb, [facility] [address] [id number] [address] [place] [address], [place] [address] Feb, [facility] [address] [id number] [address] [place] [address], [place] [address] Jan, [facility] [address] [id number] [address] [place] [address], [place] [address] Jan, [facility] [address] [id number] [address] [place] [address], [place] [address] Jan, [facility] [address] [id number] [address] [place] [address], [place] [address] Jan, [facility] [address] [id number] [address] [place] [address], [place] [address] Jan, [facility] [address] [id number] [address] [place] [address], [place] [address] Jan, [facility] [address] [id number] [address] [place] [address], [place] [address] Jan, [facility] [address] [id number] [address] [place] [address], [place] [address] Jan, [facility] [address] [id number] [address] [place] [address], [place] [address] Jan, [facility] [address] [id number] [address] [place] [address], [place] [address] Jan, [facility] [address] [id number] [address] [place] [address], [place] [address] Jan, [facility] [address] [id number] [address] [place] [address], [place] [address] Dec, [facility] [address] [id number] [address] [place] [address], [place] [address] Dec, [facility] [address] [id number] [address] [place] [address], [place] [address] Dec, [facility] [address] [id number] [address] [place] [address], [place] [address] Dec, [facility] [address] [id number] [address] [place] [address], [place] [address] Dec, [facility] [address] [id number] [address] [place] [address], [place] [address] Dec, [facility] [address] [id number] [address] [place] [address], [place] [address] Nov, [facility] [address] [id number] [address] [place] [address], [place] [address] Nov, [facility] [address] [id number] [address] [place] [address], [place] [address] Nov, [facility] [address] [id number] [address] [place] [address], [place] [address] Nov, [facility] [address] [id number] [address] [place] [address], [place] [address] Nov, [facility] [address] [id number] [address] [place] [address], [place] [address] Nov, [facility] [address] [id number] [address] [place] [phone] Oct, [facility] [address] [id number] [address] [place] [phone] Oct, 2013 [facility] [address] [id number] [address] [place] [phone] Oct, 2013 [facility] [address] [id number] [address] [place] [address], [place] [address] Oct, 2013 [facility] [address] [id number] [address] [place] [address], [place] [address] Oct, 2013 [facility] [address] [id number] [address] [place] [address], [place] [address] Oct, 2013 [facility] [address] [id number] [address] [place] [address], [place] [address] Sep, [facility] [address] [id number] [address] [place] [address], [place] [address] Sep, [facility] [address] [id number] [address] [place] [address], [place] [address] Sep, [facility] [address] [id number] [address] [place] [address], [place] [address] Sep, [facility] [address] [id number] [address] [place] [address], [place] [address] Aug, [facility] [address] [id number] [address] [place] [address], [place] [address] Aug, [facility] [address] [id number] [address] [place] [address], [place] [address] Jul, [facility] [address] [id number] [address] [place] [address], [place] [address] Jul, [facility] [address] [id number] [address] [place] [address], [place] [address] Jul, [facility] [address] [id number] [address] [place] [address], [place] [address] Jul, [facility] [address] [id number] [address] [place] [address], [place] [address] Jul, [facility] [address] [id number] [address] [place] [address], [place] [address] Jul, [facility] [address] [id number] [address] [place] [address], [place] [address] June, [facility] [address] [id number] [address] [place] [address], [place] [address] June, [facility] [address] [id number] [address] [place] [address], [place] [address] June, [facility] [address] [id number] [address] [place] [address], [place] [address] June, [facility] [address] [id number] [address] [place] [address], [place] [address] June, [facility] [address] [id number] [address] [place] [address], [place] [address] June, [facility] [address] [id number] [address] [place] [address], [place] [address] June, [facility] [address] [id number] [address] [place] [address], [place] [address] June, [facility] [address] [id number] [address] [place] [address], [place] [address] June, [facility] [address] [id number] [address] [place] [address], [place] [address] June, [facility] [address] [id number] [address] [place] [address], [place] [address] June, [facility] [address] [id number] [address] [place] [address], [place] [address] June, [facility] [address] [id number] [address] [place] [address], [place] [address] June, [facility] [address] [id number] [address] [place] [address], [place] [address] June, [facility] [address] [id number] [address] [place] [address], [place] [address] June, [facility] [address] [id number] [address] [place] [address], [place] [address] June, [facility] [address] [id number] [address] [place] [address], [place] [address] May, [facility] [address] [id number] [address] [place] [address], [place] [address] May, [facility] [address] [id number] [address] [place] [address], [place] [address] May, [facility] [address] [id number] [address] [place] [id number] 16 May, 2013 [facility] [address] [id number] [address] [place] [address], [place] [address] 31 Apr, 2013 [facility] [address] [id number] [address] [place] [address], [place] [address] 31 Apr, 2013 [facility] [address] [id number] [address] [place] [address], [place] [address] 18 Apr, 2013 [facility] [address] [id number] [address] [place] [address], [place] [address] 18 Apr, 2013 [facility] [address] [id number] [address] [place] [address], [place] [address] 14 Apr, 2013 [facility] [address] [id number] [address] [place] [address], [place] [address] 14 Apr, 2013 [facility] [address] [id number] [address] [place] [address], [place] [id number] 25 Mar, 2013 [facility] [address] [id number] [address] [place] [address], [place] [address] Mar, [facility] [address] [id number] [address] [place] [address], [place] [address] Mar, [facility] [address] [id number] [address] [place] [address], [place] [address] 18 Mar, 2013 [facility] [address] [id number] [address] [place] [address], [place] [address] Mar, [facility] [address] [id number] [address] [place] [address], [place] [address] Feb, [facility] [address] [id number] [address] [place] [address], [place] [address] Feb, [facility] [address] [id number] [address] [place] [address], [place] [address] Feb, [facility] [address] [id number] [address] [place] [address], [place] [address] Feb, [facility] [address] [id number] [address] [place] [address], [place] [address] Feb, [facility] [address] [id number] [address] [place] [address], [place] [address] Feb, [facility] [address] [id number] [address] [place] [address], [place] [address] Jan, [facility] [address] [id number] [address] [place] [address], [place] [address] Jan, [facility] [address] [id number] [address] [place] [address], [place] [address] Jan, [facility] [address] [id number] [address] [place] [address], [place] [address] Jan, [facility] [address] [id number] [address] [place] [address], [place] [address] Dec, [facility] [address] [id number] [address] [place] [address], [place] [address] Dec, [facility] [address] [id number] [address] [place] [address], [place] [address] Dec, [facility] [address] [id number] [address] [place] [address], [place] [address] Dec, [facility] [address] [id number] [address] [place] [address], [place] [address] Dec, [facility] [address] [id number] [address] [place] [address], [place] [address] Dec, [facility] [address] [id number] [address] [place] [address], [place] [address] Nov, [facility] [address] [id number] [address] [place] [address], [place] [address] Nov, [facility] [address] [id number] [address] [place] [address], [place] [address] Nov, [facility] [address] [id number] [address] [place] [address], [place] [address] Nov, [facility] [place] [address] [id number] [address] [place] [id number] Nov, [facility] [place] [address] [id number] [address] [place] [id number] Nov, [facility] [place] [address] [id number] [address] [place] [id number] Oct, [facility] [place] [address] [id number] [address] [place] [id number] Oct, [facility] [place] [address] [id number] [address] [place] [id number] Sep, [facility] [place] [address] [id number] [address] [place] [id number] Sep, [facility] [place] [address] [id number] [address] [place] [id number] Sep, [facility] [place] [address] [id number] [address] [place] [id number] Sep, [facility] [place] [address] [id number] [address] [place] [id number] Aug, IMMUNIZATIONS No Known Immunizations SOCIAL HISTORY [...]
--- OUTSIDE RECORDS SUMMARY | 2019-05-20 06:56 | XMS REPORT ---
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 50111605 Problem Edema 782.3 Active 671801322 Problem Pain in joint, shoulder region 719.41 Active 701669205 Problem Lumbago 724.2 Active 302369333 Problem Anxiety state, unspecified 300.00 Act ahmet [id number] ALLERGIES No Information ENCOUNTERS Encounter Location Date Diagnosis [facility] [address] [id number] [address] [place] [id number] June, [facility] [address] [facility] [id number] [address] [place] [address] June, [facility] [address] [facility] [id number] [address] [place] [phone] 29 May, 2014 [facility] [address] [facility] [id number] [address] [place] [address] 28 May, 2014 Obesity 278.00 and Lumbago 7 24.2 [facility] [address] [facility] [id number] [address] [place] [id number] 14 May, 2014 [facility] [address] [facility] [id number] [address] [place] [phone] 13 May, 2014 [facility] [address] [id number] [address] [place] [phone] 18 Apr, 2014 [facility] [address] [id number] [address] [place] [address], [place] [address] 18 Apr, 2014 [facility] [address] [id number] [address] [place] [address], [place] [address] 18 Apr, 2014 [facility] [address] [id number] [address] [place] [phone] 18 Apr, 2014 [facility] [address] [id number] [address] [place] [phone] 11 Apr, 2014 [facility] [address] [id number] [address] [place] [address], [place] [address] Apr, [facility] [address] [id number] [address] [place] [phone] Mar, [facility] [address] [id number] [address] [place] [address] Mar, [facility] [address] [id number] [address] [place] [address] Mar, [facility] [address] [id number] [address] [place] [address], [place] [address] Mar, [facility] [address] [id number] [address] [place] [phone] 16 Mar, 2014 [facility] [address] [id number] [address] [place] [address] Mar, [facility] [address] [id number] [address] [place] [address] Feb, [facility] [address] [id number] [address] [place] [address] Feb, [facility] [address] [id number] [address] [place] [address] Feb, [facility] [address] [id number] [address] [place] [address] Feb, [facility] [address] [id number] [address] [place] [address], [place] [address] Feb, [facility] [address] [id number] [address] [place] [address], [place] [address] Feb, [facility] [address] [id number] [address] [place] [address], [place] [address] Jan, [facility] [address] [id number] [address] [place] [address], [place] [address] Jan, [facility] [address] [id number] [address] [place] [address], [place] [address] Jan, [facility] [address] [id number] [address] [place] [address], [place] [address] Jan, [facility] [address] [id number] [address] [place] [address], [place] [address] Jan, [facility] [address] [id number] [address] [place] [address], [place] [address] Jan, [facility] [address] [id number] [address] [place] [address], [place] [address] Jan, [facility] [address] [id number] [address] [place] [address], [place] [address] Jan, [facility] [address] [id number] [address] [place] [address], [place] [address] Jan, [facility] [address] [id number] [address] [place] [address], [place] [address] Jan, [facility] [address] [id number] [address] [place] [address], [place] [address] Jan, [facility] [address] [id number] [address] [place] [address], [place] [address] Dec, [facility] [address] [id number] [address] [place] [address], [place] [address] Dec, [facility] [address] [id number] [address] [place] [address], [place] [address] Dec, [facility] [address] [id number] [address] [place] [address], [place] [address] Dec, [facility] [address] [id number] [address] [place] [address], [place] [address] Dec, [facility] [address] [id number] [address] [place] [address], [place] [address] Dec, [facility] [address] [id number] [address] [place] [address], [place] [address] Nov, [facility] [address] [id number] [address] [place] [address], [place] [address] Nov, [facility] [address] [id number] [address] [place] [address], [place] [address] Nov, [facility] [address] [id number] [address] [place] [address], [place] [address] Nov, [facility] [address] [id number] [address] [place] [address], [place] [address] Nov, [facility] [address] [id number] [address] [place] [address], [place] [address] Nov, [facility] [address] [id number] [address] [place] [address] Oct, [facility] [address] [id number] [address] [place] [address] Oct, 2013 [facility] [address] [id number] [address] [place] [address] Oct, 2013 [facility] [address] [id number] [address] [place] [address], [place] [address] Oct, 2013 [facility] [address] [id number] [address] [place] [address], [place] [address] Oct, 2013 [facility] [address] [id number] [address] [place] [address], [place] [address] Oct, 2013 [facility] [address] [id number] [address] [place] [address], [place] [address] Sep, [facility] [address] [id number] [address] [place] [address], [place] [address] Sep, [facility] [address] [id number] [address] [place] [address], [place] [address] Sep, [facility] [address] [id number] [address] [place] [address], [place] [address] Sep, [facility] [address] [id number] [address] [place] [address], [place] [address] Aug, [facility] [address] [id number] [address] [place] [address], [place] [address] Aug, [facility] [address] [id number] [address] [place] [address], [place] [address] Jul, [facility] [address] [id number] [address] [place] [address], [place] [address] Jul, [facility] [address] [id number] [address] [place] [address], [place] [address] Jul, [facility] [address] [id number] [address] [place] [address], [place] [address] Jul, [facility] [address] [id number] [address] [place] [address], [place] [address] Jul, [facility] [address] [id number] [address] [place] [address], [place] [address] Jul, [facility] [address] [id number] [address] [place] [address], [place] [address] June, [facility] [address] [id number] [address] [place] [address], [place] [address] June, [facility] [address] [id number] [address] [place] [address], [place] [address] June, [facility] [address] [id number] [address] [place] [address], [place] [address] June, [facility] [address] [id number] [address] [place] [address], [place] [address] June, [facility] [address] [id number] [address] [place] [address], [place] [address] June, [facility] [address] [id number] [address] [place] [address], [place] [address] June, [facility] [address] [id number] [address] [place] [address], [place] [address] June, [facility] [address] [id number] [address] [place] [address], [place] [address] June, [facility] [address] [id number] [address] [place] [address], [place] [address] June, [facility] [address] [id number] [address] [place] [address], [place] [address] June, [facility] [address] [id number] [address] [place] [address], [place] [address] June, [facility] [address] [id number] [address] [place] [address], [place] [address] June, [facility] [address] [id number] [address] [place] [address], [place] [address] June, [facility] [address] [id number] [address] [place] [address], [place] [address] June, [facility] [address] [id number] [address] [place] [address], [place] [address] June, [facility] [address] [id number] [address] [place] [address], [place] [address] May, [facility] [address] [id number] [address] [place] [address], [place] [address] May, [facility] [address] [id number] [address] [place] [address], [place] [address] May, [facility] [address] [id number] [address] [place] [address] 16 May, 2013 [facility] [address] [id number] [address] [place] [address], [place] [address] 31 Apr, 2013 [facility] [address] [id number] [address] [place] [address], [place] [address] 31 Apr, 2013 [facility] [address] [id number] [address] [place] [address], [place] [address] 18 Apr, 2013 [facility] [address] [id number] [address] [place] [address], [place] [address] 18 Apr, 2013 [facility] [address] [id number] [address] [place] [address], [place] [address] 14 Apr, 2013 [facility] [address] [id number] [address] [place] [address], [place] [address] 14 Apr, 2013 [facility] [address] [id number] [address] [place] [address], [place] [address] 25 Mar, 2013 [facility] [address] [id number] [address] [place] [address], [place] [address] Mar, [facility] [address] [id number] [address] [place] [address], [place] [address] Mar, [facility] [address] [id number] [address] [place] [address], [place] [address] 18 Mar, 2013 [facility] [address] [id number] [address] [place] [address], [place] [address] Mar, [facility] [address] [id number] [address] [place] [address], [place] [address] Feb, [facility] [address] [id number] [address] [place] [address], [place] [address] Feb, [facility] [address] [id number] [address] [place] [address], [place] [address] Feb, [facility] [address] [id number] [address] [place] [address], [place] [address] Feb, [facility] [address] [id number] [address] [place] [address], [place] [address] Feb, [facility] [address] [id number] [address] [place] [address], [place] [address] Feb, [facility] [address] [id number] [address] [place] [address], [place] [address] Jan, [facility] [address] [id number] [address] [place] [address], [place] [address] Jan, [facility] [address] [id number] [address] [place] [address], [place] [address] Jan, [facility] [address] [id number] [address] [place] [address], [place] [address] Jan, [facility] [address] [id number] [address] [place] [address], [place] [address] Dec, [facility] [address] [id number] [address] [place] [address], [place] [address] Dec, [facility] [address] [id number] [address] [place] [address], [place] [address] Dec, [facility] [address] [id number] [address] [place] [address], [place] [address] Dec, [facility] [address] [id number] [address] [place] [address], [place] [address] Dec, [facility] [address] [id number] [address] [place] [address], [place] [address] Dec, [facility] [address] [id number] [address] [place] [address], [place] [address] Nov, [facility] [address] [id number] [address] [place] [address], [place] [address] Nov, [facility] [address] [id number] [address] [place] [address], [place] [address] Nov, [facility] [address] [id number] [address] [place] [address], [place] [address] Nov, [facility] [address] [id number] [address] [place] [address] Nov, [facility] [address] [id number] [address] [place] [address] Nov, [facility] [address] [id number] [address] [place] [address] Oct, [facility] [address] [id number] [address] [place] [address] Oct, [facility] [address] [id number] [address] [place] [address] Sep, [facility] [address] [id number] [address] [place] [address] Sep, [facility] [address] [id number] [address] [place] [address] Sep, [facility] [address] [id number] [address] [place] [address] Sep, [facility] [address] [id number] [address] [place] [address] Aug, IMMUNIZATIONS No Known Immunizations SOCIAL HISTORY [...]
--- OUTSIDE RECORDS SUMMARY | 2019-05-20 06:56 | XMS REPORT ---
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 21302312 Problem Edema 782.3 Active 807279566 Problem Pain in joint, shoulder region 719.41 Active 759309358 Problem Lumbago 724.2 Active 265503972 Problem Anxiety state, unspecified 300.00 Act ahmet [id number] ALLERGIES No Information ENCOUNTERS Encounter Location Date Diagnosis [facility] [address] [id number] [address] [place] [address] June, [facility] [address] [facility] [id number] [address] [place] [address] June, [facility] [address] [facility] [id number] [address] [place] [address] 29 May, 2014 [facility] [address] [facility] [id number] [address] [place] [address] 28 May, 2014 Obesity 278.00 and Lumbago 7 24.2 [facility] [address] [facility] [id number] [address] [place] [address] 14 May, 2014 [facility] [address] [facility] [id number] [address] [place] [address] 13 May, 2014 [facility] [address] [id number] [address] [place] [address] 18 Apr, 2014 [facility] [address] [id number] [address] [place] [address], [place] [address] 18 Apr, 2014 [facility] [address] [id number] [address] [place] [address], [place] [address] 18 Apr, 2014 [facility] [address] [id number] [address] [place] [address] 18 Apr, 2014 [facility] [address] [id number] [address] [place] [address] 11 Apr, 2014 [facility] [address] [id number] [address] [place] [address], [place] [address] Apr, [facility] [address] [id number] [address] [place] [address] Mar, [facility] [address] [id number] [address] [place] [address] Mar, [facility] [address] [id number] [address] [place] [address] Mar, [facility] [address] [id number] [address] [place] [address], [place] [address] Mar, [facility] [address] [id number] [address] [place] [address] 16 Mar, 2014 [facility] [address] [id number] [address] [place] [address] Mar, [facility] [address] [id number] [address] [place] [address] Feb, [facility] [address] [id number] [address] [place] [address] Feb, [facility] [address] [id number] [address] [place] [address] Feb, [facility] [address] [id number] [address] [place] [address] Feb, [facility] [address] [id number] [address] [place] [address], [place] [address] Feb, [facility] [address] [id number] [address] [place] [address], [place] [address] Feb, [facility] [address] [id number] [address] [place] [address], [place] [address] Jan, [facility] [address] [id number] [address] [place] [address], [place] [address] Jan, [facility] [address] [id number] [address] [place] [address], [place] [address] Jan, [facility] [address] [id number] [address] [place] [address], [place] [address] Jan, [facility] [address] [id number] [address] [place] [address], [place] [address] Jan, [facility] [address] [id number] [address] [place] [address], [place] [address] Jan, [facility] [address] [id number] [address] [place] [address], [place] [address] Jan, [facility] [address] [id number] [address] [place] [address], [place] [address] Jan, [facility] [address] [id number] [address] [place] [address], [place] [address] Jan, [facility] [address] [id number] [address] [place] [address], [place] [address] Jan, [facility] [address] [id number] [address] [place] [address], [place] [address] Jan, [facility] [address] [id number] [address] [place] [address], [place] [address] Dec, [facility] [address] [id number] [address] [place] [address], [place] [address] Dec, [facility] [address] [id number] [address] [place] [address], [place] [address] Dec, [facility] [address] [id number] [address] [place] [address], [place] [address] Dec, [facility] [address] [id number] [address] [place] [address], [place] [address] Dec, [facility] [address] [id number] [address] [place] [address], [place] [address] Dec, [facility] [address] [id number] [address] [place] [address], [place] [address] Nov, [facility] [address] [id number] [address] [place] [address], [place] [address] Nov, [facility] [address] [id number] [address] [place] [address], [place] [address] Nov, [facility] [address] [id number] [address] [place] [address], [place] [address] Nov, [facility] [address] [id number] [address] [place] [address], [place] [address] Nov, [facility] [address] [id number] [address] [place] [address], [place] [address] Nov, [facility] [address] [id number] [address] [place] [address] Oct, [facility] [address] [id number] [address] [place] [address] Oct, 2013 [facility] [address] [id number] [address] [place] [address] Oct, 2013 [facility] [address] [id number] [address] [place] [address], [place] [address] Oct, 2013 [facility] [address] [id number] [address] [place] [address], [place] [address] Oct, 2013 [facility] [address] [id number] [address] [place] [address], [place] [address] Oct, 2013 [facility] [address] [id number] [address] [place] [address], [place] [address] Sep, [facility] [address] [id number] [address] [place] [address], [place] [address] Sep, [facility] [address] [id number] [address] [place] [address], [place] [address] Sep, [facility] [address] [id number] [address] [place] [address], [place] [address] Sep, [facility] [address] [id number] [address] [place] [address], [place] [address] Aug, [facility] [address] [id number] [address] [place] [address], [place] [address] Aug, [facility] [address] [id number] [address] [place] [address], [place] [address] Jul, [facility] [address] [id number] [address] [place] [address], [place] [address] Jul, [facility] [address] [id number] [address] [place] [address], [place] [address] Jul, [facility] [address] [id number] [address] [place] [address], [place] [address] Jul, [facility] [address] [id number] [address] [place] [address], [place] [address] Jul, [facility] [address] [id number] [address] [place] [address], [place] [address] Jul, [facility] [address] [id number] [address] [place] [address], [place] [address] June, [facility] [address] [id number] [address] [place] [address], [place] [address] June, [facility] [address] [id number] [address] [place] [address], [place] [address] June, [facility] [address] [id number] [address] [place] [address], [place] [address] June, [facility] [address] [id number] [address] [place] [address], [place] [address] June, [facility] [address] [id number] [address] [place] [address], [place] [address] June, [facility] [address] [id number] [address] [place] [address], [place] [address] June, [facility] [address] [id number] [address] [place] [address], [place] [address] June, [facility] [address] [id number] [address] [place] [address], [place] [address] June, [facility] [address] [id number] [address] [place] [address], [place] [address] June, [facility] [address] [id number] [address] [place] [address], [place] [address] June, [facility] [address] [id number] [address] [place] [address], [place] [address] June, [facility] [address] [id number] [address] [place] [address], [place] [address] June, [facility] [address] [id number] [address] [place] [address], [place] [address] June, [facility] [address] [id number] [address] [place] [address], [place] [address] June, [facility] [address] [id number] [address] [place] [address], [place] [address] June, [facility] [address] [id number] [address] [place] [address], [place] [address] May, [facility] [address] [id number] [address] [place] [address], [place] [address] May, [facility] [address] [id number] [address] [place] [address], [place] [address] May, [facility] [address] [id number] [address] [place] [address] 16 May, 2013 [facility] [address] [id number] [address] [place] [address], [place] [address] 31 Apr, 2013 [facility] [address] [id number] [address] [place] [address], [place] [address] 31 Apr, 2013 [facility] [address] [id number] [address] [place] [address], [place] [address] 18 Apr, 2013 [facility] [address] [id number] [address] [place] [address], [place] [address] 18 Apr, 2013 [facility] [address] [id number] [address] [place] [address], [place] [address] 14 Apr, 2013 [facility] [address] [id number] [address] [place] [address], [place] [address] 14 Apr, 2013 [facility] [address] [id number] [address] [place] [address], [place] [address] 25 Mar, 2013 [facility] [address] [id number] [address] [place] [address], [place] [address] Mar, [facility] [address] [id number] [address] [place] [address], [place] [address] Mar, [facility] [address] [id number] [address] [place] [address], [place] [address] 18 Mar, 2013 [facility] [address] [id number] [address] [place] [address], [place] [address] Mar, [facility] [address] [id number] [address] [place] [address], [place] [address] Feb, [facility] [address] [id number] [address] [place] [address], [place] [address] Feb, [facility] [address] [id number] [address] [place] [address], [place] [address] Feb, [facility] [address] [id number] [address] [place] [address], [place] [address] Feb, [facility] [address] [id number] [address] [place] [address], [place] [address] Feb, [facility] [address] [id number] [address] [place] [address], [place] [address] Feb, [facility] [address] [id number] [address] [place] [address], [place] [address] Jan, [facility] [address] [id number] [address] [place] [address], [place] [address] Jan, [facility] [address] [id number] [address] [place] [address], [place] [address] Jan, [facility] [address] [id number] [address] [place] [address], [place] [address] Jan, [facility] [address] [id number] [address] [place] [address], [place] [address] Dec, [facility] [address] [id number] [address] [place] [address], [place] [address] Dec, [facility] [address] [id number] [address] [place] [address], [place] [address] Dec, [facility] [address] [id number] [address] [place] [address], [place] [address] Dec, [facility] [address] [id number] [address] [place] [address], [place] [address] Dec, [facility] [address] [id number] [address] [place] [address], [place] [address] Dec, [facility] [address] [id number] [address] [place] [address], [place] [address] Nov, [facility] [address] [id number] [address] [place] [address], [place] [address] Nov, [facility] [address] [id number] [address] [place] [address], [place] [address] Nov, [facility] [address] [id number] [address] [place] [address], [place] [address] Nov, [facility] [address] [id number] [address] [place] [address] Nov, [facility] [address] [id number] [address] [place] [address] Nov, [facility] [address] [id number] [address] [place] [address] Oct, [facility] [address] [id number] [address] [place] [address] Oct, [facility] [address] [id number] [address] [place] [address] Sep, [facility] [address] [id number] [address] [place] [address] Sep, [facility] [address] [id number] [address] [place] [address] Sep, [facility] [address] [id number] [address] [place] [address] Sep, [facility] [address] [id number] [address] [place] [address] Aug, IMMUNIZATIONS No Known Immunizations SOCIAL HISTORY [...]
--- OUTSIDE RECORDS SUMMARY | 2019-05-20 06:56 | XMS REPORT ---
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 [id number] [address] [place] [address] June, [facility] [address] [facility] [id number] [address] [place] [id number] 29 May, 2014 [facility] [address] [facility] [id number] [address] [place] [address] 28 May, 2014 Obesity 278.00 and Lumbago 7 24.2 [facility] [address] [facility] [id number] [address] [place] [id number] 14 May, 2014 [facility] [address] [facility] [id number] [address] [place] [id number] 13 May, 2014 [facility] [address] [id number] [address] [place] [id number] 18 Apr, 2014 [facility] [address] [id number] [address] [place] [address], [place] [address] 18 Apr, 2014 [facility] [address] [id number] [address] [place] [address], [place] [address] 18 Apr, 2014 [facility] [address] [id number] [address] [place] [id number] 18 Apr, 2014 [facility] [address] [id number] [address] [place] [id number] 11 Apr, 2014 [facility] [address] [id number] [address] [place] [address], [place] [address] Apr, [facility] [address] [id number] [address] [place] [address] Mar, [facility] [address] [id number] [address] [place] [address] Mar, [facility] [address] [id number] [address] [place] [address] Mar, [facility] [address] [id number] [address] [place] [address], [place] [address] Mar, [facility] [address] [id number] [address] [place] [id number] 16 Mar, 2014 [facility] [address] [id number] [address] [place] [address] Mar, [facility] [address] [id number] [address] [place] [address] Feb, [facility] [address] [id number] [address] [place] [address] Feb, [facility] [address] [id number] [address] [place] [address] Feb, [facility] [address] [id number] [address] [place] [phone] Feb, [facility] [address] [id number] [address] [place] [address], [place] [address] Feb, [facility] [address] [id number] [address] [place] [address], [place] [address] Feb, [facility] [address] [id number] [address] [place] [address], [place] [address] Jan, [facility] [address] [id number] [address] [place] [address], [place] [address] Jan, [facility] [address] [id number] [address] [place] [address], [place] [address] Jan, [facility] [address] [id number] [address] [place] [address], [place] [address] Jan, [facility] [address] [id number] [address] [place] [address], [place] [address] Jan, [facility] [address] [id number] [address] [place] [address], [place] [address] Jan, [facility] [address] [id number] [address] [place] [address], [place] [address] Jan, [facility] [address] [id number] [address] [place] [address], [place] [address] Jan, [facility] [address] [id number] [address] [place] [address], [place] [address] Jan, [facility] [address] [id number] [address] [place] [address], [place] [address] Jan, [facility] [address] [id number] [address] [place] [address], [place] [address] Jan, [facility] [address] [id number] [address] [place] [address], [place] [address] Dec, [facility] [address] [id number] [address] [place] [address], [place] [address] Dec, [facility] [address] [id number] [address] [place] [address], [place] [address] Dec, [facility] [address] [id number] [address] [place] [address], [place] [address] Dec, [facility] [address] [id number] [address] [place] [address], [place] [address] Dec, [facility] [address] [id number] [address] [place] [address], [place] [address] Dec, [facility] [address] [id number] [address] [place] [address], [place] [address] Nov, [facility] [address] [id number] [address] [place] [address], [place] [address] Nov, [facility] [address] [id number] [address] [place] [address], [place] [address] Nov, [facility] [address] [id number] [address] [place] [address], [place] [address] Nov, [facility] [address] [id number] [address] [place] [address], [place] [address] Nov, [facility] [address] [id number] [address] [place] [address], [place] [address] Nov, [facility] [address] [id number] [address] [place] [address] Oct, [facility] [address] [id number] [address] [place] [address] Oct, 2013 [facility] [address] [id number] [address] [place] [address] Oct, 2013 [facility] [address] [id number] [address] [place] [address], [place] [address] Oct, 2013 [facility] [address] [id number] [address] [place] [address], [place] [address] Oct, 2013 [facility] [address] [id number] [address] [place] [address], [place] [address] Oct, 2013 [facility] [address] [id number] [address] [place] [address], [place] [address] Sep, [facility] [address] [id number] [address] [place] [address], [place] [address] Sep, [facility] [address] [id number] [address] [place] [address], [place] [address] Sep, [facility] [address] [id number] [address] [place] [address], [place] [address] Sep, [facility] [address] [id number] [address] [place] [address], [place] [address] Aug, [facility] [address] [id number] [address] [place] [address], [place] [address] Aug, [facility] [address] [id number] [address] [place] [address], [place] [address] Jul, [facility] [address] [id number] [address] [place] [address], [place] [address] Jul, [facility] [address] [id number] [address] [place] [address], [place] [address] Jul, [facility] [address] [id number] [address] [place] [address], [place] [address] Jul, [facility] [address] [id number] [address] [place] [address], [place] [address] Jul, [facility] [address] [id number] [address] [place] [address], [place] [address] Jul, [facility] [address] [id number] [address] [place] [address], [place] [address] June, [facility] [address] [id number] [address] [place] [address], [place] [address] June, [facility] [address] [id number] [address] [place] [address], [place] [address] June, [facility] [address] [id number] [address] [place] [address], [place] [address] June, [facility] [address] [id number] [address] [place] [address], [place] [address] June, [facility] [address] [id number] [address] [place] [address], [place] [address] June, [facility] [address] [id number] [address] [place] [address], [place] [address] June, [facility] [address] [id number] [address] [place] [address], [place] [address] June, [facility] [address] [id number] [address] [place] [address], [place] [address] June, [facility] [address] [id number] [address] [place] [address], [place] [address] June, [facility] [address] [id number] [address] [place] [address], [place] [address] June, [facility] [address] [id number] [address] [place] [address], [place] [address] June, [facility] [address] [id number] [address] [place] [address], [place] [address] June, [facility] [address] [id number] [address] [place] [address], [place] [address] June, [facility] [address] [id number] [address] [place] [address], [place] [address] June, [facility] [address] [id number] [address] [place] [address], [place] [address] June, [facility] [address] [id number] [address] [place] [address], [place] [address] May, [facility] [address] [id number] [address] [place] [address], [place] [address] May, [facility] [address] [id number] [address] [place] [address], [place] [address] May, [facility] [address] [id number] [address] [place] [address] 16 May, 2013 [facility] [address] [id number] [address] [place] [address], [place] [address] 31 Apr, 2013 [facility] [address] [id number] [address] [place] [address], [place] [address] 31 Apr, 2013 [facility] [address] [id number] [address] [place] [address], [place] [address] 18 Apr, 2013 [facility] [address] [id number] [address] [place] [address], [place] [address] 18 Apr, 2013 [facility] [address] [id number] [address] [place] [address], [place] [address] 14 Apr, 2013 [facility] [address] [id number] [address] [place] [address], [place] [address] 14 Apr, 2013 [facility] [address] [id number] [address] [place] [address], [place] [address] 25 Mar, 2013 [facility] [address] [id number] [address] [place] [address], [place] [address] Mar, [facility] [address] [id number] [address] [place] [address], [place] [address] Mar, [facility] [address] [id number] [address] [place] [address], [place] [address] 18 Mar, 2013 [facility] [address] [id number] [address] [place] [address], [place] [address] Mar, [facility] [address] [id number] [address] [place] [address], [place] [address] Feb, [facility] [address] [id number] [address] [place] [address], [place] [address] Feb, [facility] [address] [id number] [address] [place] [address], [place] [address] Feb, [facility] [address] [id number] [address] [place] [address], [place] [address] Feb, [facility] [address] [id number] [address] [place] [address], [place] [address] Feb, [facility] [address] [id number] [address] [place] [address], [place] [address] Feb, [facility] [address] [id number] [address] [place] [address], [place] [address] Jan, [facility] [address] [id number] [address] [place] [address], [place] [address] Jan, [facility] [address] [id number] [address] [place] [address], [place] [address] Jan, [facility] [address] [id number] [address] [place] [address], [place] [address] Jan, [facility] [address] [id number] [address] [place] [address], [place] [address] Dec, [facility] [address] [id number] [address] [place] [address], [place] [address] Dec, [facility] [address] [id number] [address] [place] [address], [place] [address] Dec, [facility] [address] [id number] [address] [place] [address], [place] [address] Dec, [facility] [address] [id number] [address] [place] [address], [place] [address] Dec, [facility] [address] [id number] [address] [place] [address], [place] [address] Dec, [facility] [address] [id number] [address] [place] [address], [place] [address] Nov, [facility] [address] [id number] [address] [place] [address], [place] [address] Nov, [facility] [address] [id number] [address] [place] [address], [place] [address] Nov, [facility] [address] [id number] [address] [place] [address], [place] [address] Nov, [facility] [address] [id number] [address] [place] [address] Nov, [facility] [address] [id number] [address] [place] [address] Nov, [facility] [address] [id number] [address] [place] [address] Oct, [facility] [address] [id number] [address] [place] [address] Oct, [facility] [address] [id number] [address] [place] [address] Sep, [facility] [address] [id number] [address] [place] [address] Sep, [facility] [address] [id number] [address] [place] [address] Sep, [facility] [address] [id number] [address] [place] [address] Sep, [facility] [address] [id number] [address] [place] [address] Aug, IMMUNIZATIONS No Known Immunizations SOCIAL HISTORY Never Assessed REASON FOR VISIT PLAN OF CARE VITAL SIGNS Height 64 in 2014-02-20 Weight 323 lbs 2014-02-20 Temperature 96.6 degrees Fahrenheit 2014-02-20 Heart Rate 80 bpm 2014-02-20 Respiratory Rate 28 2014-02-20 Blood pressure systolic 122 mmHg 2014-02-20 Blood pressure diastolic 78 mmHg 2014-02-20 MEDICATIONS Unknown Medications RESULTS No Results PROCEDURES Procedure Date Ordered Result Body Site MEASURE BLOOD OXYGEN LEVEL Feb 20, 2014 INSTRUCTIONS MEDICATIONS ADMINISTERED No Known Medications MEDICAL (GENERAL) HISTORY Type Description Date Medical History obesity Medical History arthritis back Medical History RLS Medical History migraines Surgical History cholecystectomy 2005 Surgical History orthopedic surgery- bulging disks at L4/L5 since 2008,bilat hip replacement, bilat knee replacement
--- OUTSIDE RECORDS SUMMARY | 2019-05-20 06:56 | XMS REPORT ---
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 53141700 Problem Edema 782.3 Active 579881472 Problem Pain in joint, shoulder region 719.41 Active 164291191 Problem Lumbago 724.2 Active 405406245 Problem Anxiety state, unspecified 300.00 Act ahmet [id number] ALLERGIES No Information ENCOUNTERS Encounter Location Date Diagnosis [facility] [place] [address] [id number] [address] [place] [id number] June, [facility] [place] [address] [facility] [id number] [address] [place] [address] June, [facility] [place] [address] [facility] [id number] [address] [place] [id number] 29 May, 2014 [facility] [place] [address] [facility] [id number] [address] [place] [id number] 28 May, 2014 Obesity 278.00 and Lumbago 7 24.2 [facility] [place] [address] [facility] [id number] [address] [place] [id number] 14 May, 2014 [facility] [place] [address] [facility] [id number] [address] [place] [id number] 13 May, 2014 [facility] [place] [address] [id number] [address] [place] [id number] 18 Apr, 2014 [facility] [address] [id number] [address] [place] [address], [place] [address] 18 Apr, 2014 [facility] [address] [id number] [address] [place] [address], [place] [address] 18 Apr, 2014 [facility] [address] [id number] [address] [place] [id number] 18 Apr, 2014 [facility] [address] [id number] [address] [place] [id number] 11 Apr, 2014 [facility] [address] [id number] [address] [place] [address], [place] [address] Apr, [facility] [address] [id number] [address] [place] [address] Mar, [facility] [address] [id number] [address] [place] [id number] Mar, [facility] [address] [id number] [address] [place] [id number] Mar, [facility] [address] [id number] [address] [place] [address], [place] [address] Mar, [facility] [address] [id number] [address] [place] [id number] 16 Mar, 2014 [facility] [address] [id number] [address] [place] [address] Mar, [facility] [address] [id number] [address] [place] [id number] Feb, [facility] [address] [id number] [address] [place] [id number] Feb, [facility] [address] [id number] [address] [place] [id number] Feb, [facility] [address] [id number] [address] [place] [id number] Feb, [facility] [address] [id number] [address] [place] [address], [place] [address] Feb, [facility] [address] [id number] [address] [place] [address], [place] [address] Feb, [facility] [address] [id number] [address] [place] [address], [place] [address] Jan, [facility] [address] [id number] [address] [place] [address], [place] [address] Jan, [facility] [address] [id number] [address] [place] [address], [place] [address] Jan, [facility] [address] [id number] [address] [place] [address], [place] [address] Jan, [facility] [address] [id number] [address] [place] [address], [place] [address] Jan, [facility] [address] [id number] [address] [place] [address], [place] [address] Jan, [facility] [address] [id number] [address] [place] [address], [place] [address] Jan, [facility] [address] [id number] [address] [place] [address], [place] [address] Jan, [facility] [address] [id number] [address] [place] [address], [place] [address] Jan, [facility] [address] [id number] [address] [place] [address], [place] [address] Jan, [facility] [address] [id number] [address] [place] [address], [place] [address] Jan, [facility] [address] [id number] [address] [place] [address], [place] [address] Dec, [facility] [address] [id number] [address] [place] [address], [place] [address] Dec, [facility] [address] [id number] [address] [place] [address], [place] [address] Dec, [facility] [address] [id number] [address] [place] [address], [place] [address] Dec, [facility] [address] [id number] [address] [place] [address], [place] [address] Dec, [facility] [address] [id number] [address] [place] [address], [place] [address] Dec, [facility] [address] [id number] [address] [place] [address], [place] [address] Nov, [facility] [address] [id number] [address] [place] [address], [place] [address] Nov, [facility] [address] [id number] [address] [place] [address], [place] [address] Nov, [facility] [address] [id number] [address] [place] [address], [place] [address] Nov, [facility] [address] [id number] [address] [place] [address], [place] [address] Nov, [facility] [address] [id number] [address] [place] [address], [place] [address] Nov, [facility] [address] [id number] [address] [place] [address] Oct, [facility] [address] [id number] [address] [place] [address] Oct, 2013 [facility] [address] [id number] [address] [place] [address] Oct, 2013 [facility] [address] [id number] [address] [place] [address], [place] [address] Oct, 2013 [facility] [address] [id number] [address] [place] [address], [place] [address] Oct, 2013 [facility] [address] [id number] [address] [place] [address], [place] [address] Oct, 2013 [facility] [address] [id number] [address] [place] [address], [place] [address] Sep, [facility] [address] [id number] [address] [place] [address], [place] [address] Sep, [facility] [address] [id number] [address] [place] [address], [place] [address] Sep, [facility] [address] [id number] [address] [place] [address], [place] [address] Sep, [facility] [address] [id number] [address] [place] [address], [place] [address] Aug, [facility] [address] [id number] [address] [place] [address], [place] [address] Aug, [facility] [address] [id number] [address] [place] [address], [place] [address] Jul, [facility] [address] [id number] [address] [place] [address], [place] [address] Jul, [facility] [address] [id number] [address] [place] [address], [place] [address] Jul, [facility] [address] [id number] [address] [place] [address], [place] [address] Jul, [facility] [address] [id number] [address] [place] [address], [place] [address] Jul, [facility] [address] [id number] [address] [place] [address], [place] [address] Jul, [facility] [address] [id number] [address] [place] [address], [place] [address] June, [facility] [address] [id number] [address] [place] [address], [place] [address] June, [facility] [address] [id number] [address] [place] [address], [place] [address] June, [facility] [address] [id number] [address] [place] [address], [place] [address] June, [facility] [address] [id number] [address] [place] [address], [place] [address] June, [facility] [address] [id number] [address] [place] [address], [place] [address] June, [facility] [address] [id number] [address] [place] [address], [place] [address] June, [facility] [address] [id number] [address] [place] [address], [place] [address] June, [facility] [address] [id number] [address] [place] [address], [place] [address] June, [facility] [address] [id number] [address] [place] [address], [place] [address] June, [facility] [address] [id number] [address] [place] [address], [place] [address] June, [facility] [address] [id number] [address] [place] [address], [place] [address] June, [facility] [address] [id number] [address] [place] [address], [place] [address] June, [facility] [address] [id number] [address] [place] [address], [place] [address] June, [facility] [address] [id number] [address] [place] [address], [place] [address] June, [facility] [address] [id number] [address] [place] [address], [place] [address] June, [facility] [address] [id number] [address] [place] [address], [place] [address] May, [facility] [address] [id number] [address] [place] [address], [place] [address] May, [facility] [address] [id number] [address] [place] [address], [place] [address] May, [facility] [address] [id number] [address] [place] [id number] 16 May, 2013 [facility] [address] [id number] [address] [place] [address], [place] [address] 31 Apr, 2013 [facility] [address] [id number] [address] [place] [address], [place] [address] 31 Apr, 2013 [facility] [address] [id number] [address] [place] [address], [place] [address] 18 Apr, 2013 [facility] [address] [id number] [address] [place] [address], [place] [address] 18 Apr, 2013 [facility] [address] [id number] [address] [place] [address], [place] [address] 14 Apr, 2013 [facility] [address] [id number] [address] [place] [address], [place] [address] 14 Apr, 2013 [facility] [address] [id number] [address] [place] [address], [place] [address] 25 Mar, 2013 [facility] [address] [id number] [address] [place] [address], [place] [address] Mar, [facility] [address] [id number] [address] [place] [address], [place] [address] Mar, [facility] [address] [id number] [address] [place] [address], [place] [address] 18 Mar, 2013 [facility] [address] [id number] [address] [place] [address], [place] [address] Mar, [facility] [address] [id number] [address] [place] [address], [place] [address] Feb, [facility] [address] [id number] [address] [place] [address], [place] [address] Feb, [facility] [address] [id number] [address] [place] [address], [place] [address] Feb, [facility] [address] [id number] [address] [place] [address], [place] [address] Feb, [facility] [address] [id number] [address] [place] [address], [place] [address] Feb, [facility] [address] [id number] [address] [place] [address], [place] [address] Feb, [facility] [address] [id number] [address] [place] [address], [place] [address] Jan, [facility] [address] [id number] [address] [place] [address], [place] [address] Jan, [facility] [address] [id number] [address] [place] [address], [place] [address] Jan, [facility] [address] [id number] [address] [place] [address], [place] [address] Jan, [facility] [address] [id number] [address] [place] [address], [place] [address] Dec, [facility] [address] [id number] [address] [place] [address], [place] [address] Dec, [facility] [address] [id number] [address] [place] [address], [place] [address] Dec, [facility] [address] [id number] [address] [place] [address], [place] [address] Dec, [facility] [address] [id number] [address] [place] [address], [place] [address] Dec, [facility] [address] [id number] [address] [place] [address], [place] [address] Dec, [facility] [address] [id number] [address] [place] [address], [place] [address] Nov, [facility] [address] [id number] [address] [place] [address], [place] [address] Nov, [facility] [address] [id number] [address] [place] [address], [place] [address] Nov, [facility] [address] [id number] [address] [place] [address], [place] [address] Nov, [facility] [place] [address] [id number] [address] [place] [address] Nov, [facility] [place] [address] [id number] [address] [place] [address] Nov, [facility] [place] [address] [id number] [address] [place] [address] Oct, [facility] [place] [address] [id number] [address] [place] [address] Oct, [facility] [place] [address] [id number] [address] [place] [address] Sep, [facility] [place] [address] [id number] [address] [place] [address] Sep, [facility] [place] [address] [id number] [address] [place] [address] Sep, [facility] [place] [address] [id number] [address] [place] [address] Sep, [facility] [place] [address] [id number] [address] [place] [address] Aug, IMMUNIZATIONS No Known Immunizations SOCIAL HISTORY [...]
--- OUTSIDE RECORDS SUMMARY | 2019-05-20 06:56 | XMS REPORT ---
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 69318233 Problem Edema 782.3 Active 649431514 Problem Pain in joint, shoulder region 719.41 Active 641748649 Problem Lumbago 724.2 Active 187382968 Problem Anxiety state, unspecified 300.00 Act ahmet [id number] ALLERGIES No Information ENCOUNTERS Encounter Location Date Diagnosis [facility] [address] [id number] [address] [place] [address] June, [facility] [address] [facility] [id number] [address] [place] [address] June, [facility] [address] [facility] [id number] [address] [place] [address] 29 May, 2014 [facility] [address] [facility] [id number] [address] [place] [address] 28 May, 2014 Obesity 278.00 and Lumbago 7 24.2 [facility] [address] [facility] [id number] [address] [place] [address] 14 May, 2014 [facility] [address] [facility] [id number] [address] [place] [address] 13 May, 2014 [facility] [address] [id number] [address] [place] [address] 18 Apr, 2014 [facility] [address] [id number] [address] [place] [address], [place] [address] 18 Apr, 2014 [facility] [address] [id number] [address] [place] [address], [place] [address] 18 Apr, 2014 [facility] [address] [id number] [address] [place] [address] 18 Apr, 2014 [facility] [address] [id number] [address] [place] [address] 11 Apr, 2014 [facility] [address] [id number] [address] [place] [address], [place] [address] Apr, [facility] [address] [id number] [address] [place] [address] Mar, [facility] [address] [id number] [address] [place] [address] Mar, [facility] [address] [id number] [address] [place] [address] Mar, [facility] [address] [id number] [address] [place] [address], [place] [address] Mar, [facility] [address] [id number] [address] [place] [address] 16 Mar, 2014 [facility] [address] [id number] [address] [place] [address] Mar, [facility] [address] [id number] [address] [place] [address] Feb, [facility] [address] [id number] [address] [place] [address] Feb, [facility] [address] [id number] [address] [place] [address] Feb, [facility] [address] [id number] [address] [place] [address] Feb, [facility] [address] [id number] [address] [place] [address], [place] [address] Feb, [facility] [address] [id number] [address] [place] [address], [place] [address] Feb, [facility] [address] [id number] [address] [place] [address], [place] [address] Jan, [facility] [address] [id number] [address] [place] [address], [place] [address] Jan, [facility] [address] [id number] [address] [place] [address], [place] [address] Jan, [facility] [address] [id number] [address] [place] [address], [place] [address] Jan, [facility] [address] [id number] [address] [place] [address], [place] [address] Jan, [facility] [address] [id number] [address] [place] [address], [place] [address] Jan, [facility] [address] [id number] [address] [place] [address], [place] [address] Jan, [facility] [address] [id number] [address] [place] [address], [place] [address] Jan, [facility] [address] [id number] [address] [place] [address], [place] [address] Jan, [facility] [address] [id number] [address] [place] [address], [place] [address] Jan, [facility] [address] [id number] [address] [place] [address], [place] [address] Jan, [facility] [address] [id number] [address] [place] [address], [place] [address] Dec, [facility] [address] [id number] [address] [place] [address], [place] [address] Dec, [facility] [address] [id number] [address] [place] [address], [place] [address] Dec, [facility] [address] [id number] [address] [place] [address], [place] [address] Dec, [facility] [address] [id number] [address] [place] [address], [place] [address] Dec, [facility] [address] [id number] [address] [place] [address], [place] [address] Dec, [facility] [address] [id number] [address] [place] [address], [place] [address] Nov, [facility] [address] [id number] [address] [place] [address], [place] [address] Nov, [facility] [address] [id number] [address] [place] [address], [place] [address] Nov, [facility] [address] [id number] [address] [place] [address], [place] [address] Nov, [facility] [address] [id number] [address] [place] [address], [place] [address] Nov, [facility] [address] [id number] [address] [place] [address], [place] [address] Nov, [facility] [address] [id number] [address] [place] [address] Oct, [facility] [address] [id number] [address] [place] [address] Oct, 2013 [facility] [address] [id number] [address] [place] [address] Oct, 2013 [facility] [address] [id number] [address] [place] [address], [place] [address] Oct, 2013 [facility] [address] [id number] [address] [place] [address], [place] [address] Oct, 2013 [facility] [address] [id number] [address] [place] [address], [place] [address] Oct, 2013 [facility] [address] [id number] [address] [place] [address], [place] [address] Sep, [facility] [address] [id number] [address] [place] [address], [place] [address] Sep, [facility] [address] [id number] [address] [place] [address], [place] [address] Sep, [facility] [address] [id number] [address] [place] [address], [place] [address] Sep, [facility] [address] [id number] [address] [place] [address], [place] [address] Aug, [facility] [address] [id number] [address] [place] [address], [place] [address] Aug, [facility] [address] [id number] [address] [place] [address], [place] [address] Jul, [facility] [address] [id number] [address] [place] [address], [place] [address] Jul, [facility] [address] [id number] [address] [place] [address], [place] [address] Jul, [facility] [address] [id number] [address] [place] [address], [place] [address] Jul, [facility] [address] [id number] [address] [place] [address], [place] [address] Jul, [facility] [address] [id number] [address] [place] [address], [place] [address] Jul, [facility] [address] [id number] [address] [place] [address], [place] [address] June, [facility] [address] [id number] [address] [place] [address], [place] [address] June, [facility] [address] [id number] [address] [place] [address], [place] [address] June, [facility] [address] [id number] [address] [place] [address], [place] [address] June, [facility] [address] [id number] [address] [place] [address], [place] [address] June, [facility] [address] [id number] [address] [place] [address], [place] [address] June, [facility] [address] [id number] [address] [place] [address], [place] [address] June, [facility] [address] [id number] [address] [place] [address], [place] [address] June, [facility] [address] [id number] [address] [place] [address], [place] [address] June, [facility] [address] [id number] [address] [place] [address], [place] [address] June, [facility] [address] [id number] [address] [place] [address], [place] [address] June, [facility] [address] [id number] [address] [place] [address], [place] [address] June, [facility] [address] [id number] [address] [place] [address], [place] [address] June, [facility] [address] [id number] [address] [place] [address], [place] [address] June, [facility] [address] [id number] [address] [place] [address], [place] [address] June, [facility] [address] [id number] [address] [place] [address], [place] [address] June, [facility] [address] [id number] [address] [place] [address], [place] [address] May, [facility] [address] [id number] [address] [place] [address], [place] [address] May, [facility] [address] [id number] [address] [place] [address], [place] [address] May, [facility] [address] [id number] [address] [place] [address] 16 May, 2013 [facility] [address] [id number] [address] [place] [address], [place] [address] 31 Apr, 2013 [facility] [address] [id number] [address] [place] [address], [place] [address] 31 Apr, 2013 [facility] [address] [id number] [address] [place] [address], [place] [address] 18 Apr, 2013 [facility] [address] [id number] [address] [place] [address], [place] [address] 18 Apr, 2013 [facility] [address] [id number] [address] [place] [address], [place] [address] 14 Apr, 2013 [facility] [address] [id number] [address] [place] [address], [place] [address] 14 Apr, 2013 [facility] [address] [id number] [address] [place] [address], [place] [address] 25 Mar, 2013 [facility] [address] [id number] [address] [place] [address], [place] [address] Mar, [facility] [address] [id number] [address] [place] [address], [place] [address] Mar, [facility] [address] [id number] [address] [place] [address], [place] [address] 18 Mar, 2013 [facility] [address] [id number] [address] [place] [address], [place] [address] Mar, [facility] [address] [id number] [address] [place] [address], [place] [address] Feb, [facility] [address] [id number] [address] [place] [address], [place] [address] Feb, [facility] [address] [id number] [address] [place] [address], [place] [address] Feb, [facility] [address] [id number] [address] [place] [address], [place] [address] Feb, [facility] [address] [id number] [address] [place] [address], [place] [address] Feb, [facility] [address] [id number] [address] [place] [address], [place] [address] Feb, [facility] [address] [id number] [address] [place] [address], [place] [address] Jan, [facility] [address] [id number] [address] [place] [address], [place] [address] Jan, [facility] [address] [id number] [address] [place] [address], [place] [address] Jan, [facility] [address] [id number] [address] [place] [address], [place] [address] Jan, [facility] [address] [id number] [address] [place] [address], [place] [address] Dec, [facility] [address] [id number] [address] [place] [address], [place] [address] Dec, [facility] [address] [id number] [address] [place] [address], [place] [address] Dec, [facility] [address] [id number] [address] [place] [address], [place] [address] Dec, [facility] [address] [id number] [address] [place] [address], [place] [address] Dec, [facility] [address] [id number] [address] [place] [address], [place] [address] Dec, [facility] [address] [id number] [address] [place] [address], [place] [address] Nov, [facility] [address] [id number] [address] [place] [address], [place] [address] Nov, [facility] [address] [id number] [address] [place] [address], [place] [address] Nov, [facility] [address] [id number] [address] [place] [address], [place] [address] Nov, [facility] [address] [id number] [address] [place] [address] Nov, [facility] [address] [id number] [address] [place] [address] Nov, [facility] [address] [id number] [address] [place] [address] Oct, [facility] [address] [id number] [address] [place] [address] Oct, [facility] [address] [id number] [address] [place] [address] Sep, [facility] [address] [id number] [address] [place] [address] Sep, [facility] [address] [id number] [address] [place] [address] Sep, [facility] [address] [id number] [address] [place] [address] Sep, [facility] [address] [id number] [address] [place] [address] Aug, IMMUNIZATIONS No Known Immunizations SOCIAL HISTORY [...]
--- OUTSIDE RECORDS SUMMARY | 2019-05-20 06:57 | XMS REPORT ---
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 46078069 Problem Edema 782.3 Active 695892226 Problem Pain in joint, shoulder region 719.41 Active 586145493 Problem Lumbago 724.2 Active 076769723 Problem Anxiety state, unspecified 300.00 Act ahmet [id number] ALLERGIES No Information ENCOUNTERS Encounter Location Date Diagnosis [facility] [address] [id number] [address] [place] [phone] June, [facility] [address] [facility] [id number] [address] [place] [phone] June, [facility] [address] [facility] [id number] [address] [place] [id number] 29 May, 2014 [facility] [address] [facility] [id number] [address] [place] [id number] 28 May, 2014 Obesity 278.00 and Lumbago 7 24.2 [facility] [address] [facility] [id number] [address] [place] [id number] 14 May, 2014 [facility] [address] [facility] [id number] [address] [place] [id number] 13 May, 2014 [facility] [address] [id number] [address] [place] [id number] 18 Apr, 2014 [facility] [address] [id number] [address] [place] [address], [place] [address] 18 Apr, 2014 [facility] [address] [id number] [address] [place] [address], [place] [address] 18 Apr, 2014 [facility] [address] [id number] [address] [place] [id number] 18 Apr, 2014 [facility] [address] [id number] [address] [place] [id number] 11 Apr, 2014 [facility] [address] [id number] [address] [place] [address], [place] [address] Apr, [facility] [address] [id number] [address] [place] [id number] Mar, [facility] [address] [id number] [address] [place] [phone] Mar, [facility] [address] [id number] [address] [place] [phone] Mar, [facility] [address] [id number] [address] [place] [address], [place] [address] Mar, [facility] [address] [id number] [address] [place] [id number] 16 Mar, 2014 [facility] [address] [id number] [address] [place] [phone] Mar, [facility] [address] [id number] [address] [place] [phone] Feb, [facility] [address] [id number] [address] [place] [id number] Feb, [facility] [address] [id number] [address] [place] [id number] Feb, [facility] [address] [id number] [address] [place] [id number] Feb, [facility] [address] [id number] [address] [place] [address], [place] [address] Feb, [facility] [address] [id number] [address] [place] [address], [place] [address] Feb, [facility] [address] [id number] [address] [place] [address], [place] [address] Jan, [facility] [address] [id number] [address] [place] [address], [place] [address] Jan, [facility] [address] [id number] [address] [place] [address], [place] [address] Jan, [facility] [address] [id number] [address] [place] [address], [place] [address] Jan, [facility] [address] [id number] [address] [place] [address], [place] [address] Jan, [facility] [address] [id number] [address] [place] [address], [place] [address] Jan, [facility] [address] [id number] [address] [place] [address], [place] [address] Jan, [facility] [address] [id number] [address] [place] [address], [place] [address] Jan, [facility] [address] [id number] [address] [place] [address], [place] [address] Jan, [facility] [address] [id number] [address] [place] [address], [place] [address] Jan, [facility] [address] [id number] [address] [place] [address], [place] [address] Jan, [facility] [address] [id number] [address] [place] [address], [place] [address] Dec, [facility] [address] [id number] [address] [place] [address], [place] [address] Dec, [facility] [address] [id number] [address] [place] [address], [place] [address] Dec, [facility] [address] [id number] [address] [place] [address], [place] [address] Dec, [facility] [address] [id number] [address] [place] [address], [place] [address] Dec, [facility] [address] [id number] [address] [place] [address], [place] [address] Dec, [facility] [address] [id number] [address] [place] [address], [place] [address] Nov, [facility] [address] [id number] [address] [place] [address], [place] [address] Nov, [facility] [address] [id number] [address] [place] [address], [place] [address] Nov, [facility] [address] [id number] [address] [place] [address], [place] [address] Nov, [facility] [address] [id number] [address] [place] [address], [place] [address] Nov, [facility] [address] [id number] [address] [place] [address], [place] [address] Nov, [facility] [address] [id number] [address] [place] [address] Oct, [facility] [address] [id number] [address] [place] [id number] Oct, 2013 [facility] [address] [id number] [address] [place] [id number] Oct, 2013 [facility] [address] [id number] [address] [place] [address], [place] [address] Oct, 2013 [facility] [address] [id number] [address] [place] [address], [place] [address] Oct, 2013 [facility] [address] [id number] [address] [place] [address], [place] [address] Oct, 2013 [facility] [address] [id number] [address] [place] [address], [place] [address] Sep, [facility] [address] [id number] [address] [place] [address], [place] [address] Sep, [facility] [address] [id number] [address] [place] [address], [place] [address] Sep, [facility] [address] [id number] [address] [place] [address], [place] [address] Sep, [facility] [address] [id number] [address] [place] [address], [place] [address] Aug, [facility] [address] [id number] [address] [place] [address], [place] [address] Aug, [facility] [address] [id number] [address] [place] [address], [place] [address] Jul, [facility] [address] [id number] [address] [place] [address], [place] [address] Jul, [facility] [address] [id number] [address] [place] [address], [place] [address] Jul, [facility] [address] [id number] [address] [place] [address], [place] [address] Jul, [facility] [address] [id number] [address] [place] [address], [place] [address] Jul, [facility] [address] [id number] [address] [place] [address], [place] [address] Jul, [facility] [address] [id number] [address] [place] [address], [place] [address] June, [facility] [address] [id number] [address] [place] [address], [place] [address] June, [facility] [address] [id number] [address] [place] [address], [place] [address] June, [facility] [address] [id number] [address] [place] [address], [place] [address] June, [facility] [address] [id number] [address] [place] [address], [place] [address] June, [facility] [address] [id number] [address] [place] [address], [place] [address] June, [facility] [address] [id number] [address] [place] [address], [place] [address] June, [facility] [address] [id number] [address] [place] [address], [place] [address] June, [facility] [address] [id number] [address] [place] [address], [place] [address] June, [facility] [address] [id number] [address] [place] [address], [place] [address] June, [facility] [address] [id number] [address] [place] [address], [place] [address] June, [facility] [address] [id number] [address] [place] [address], [place] [address] June, [facility] [address] [id number] [address] [place] [address], [place] [address] June, [facility] [address] [id number] [address] [place] [address], [place] [address] June, [facility] [address] [id number] [address] [place] [address], [place] [address] June, [facility] [address] [id number] [address] [place] [address], [place] [address] June, [facility] [address] [id number] [address] [place] [address], [place] [address] May, [facility] [address] [id number] [address] [place] [address], [place] [address] May, [facility] [address] [id number] [address] [place] [address], [place] [address] May, [facility] [address] [id number] [address] [place] [id number] 16 May, 2013 [facility] [address] [id number] [address] [place] [address], [place] [address] 31 Apr, 2013 [facility] [address] [id number] [address] [place] [address], [place] [address] 31 Apr, 2013 [facility] [address] [id number] [address] [place] [address], [place] [address] 18 Apr, 2013 [facility] [address] [id number] [address] [place] [address], [place] [address] 18 Apr, 2013 [facility] [address] [id number] [address] [place] [address], [place] [address] 14 Apr, 2013 [facility] [address] [id number] [address] [place] [address], [place] [address] 14 Apr, 2013 [facility] [address] [id number] [address] [place] [address], [place] [address] 25 Mar, 2013 [facility] [address] [id number] [address] [place] [address], [place] [address] Mar, [facility] [address] [id number] [address] [place] [address], [place] [address] Mar, [facility] [address] [id number] [address] [place] [address], [place] [address] 18 Mar, 2013 [facility] [address] [id number] [address] [place] [address], [place] [address] Mar, [facility] [address] [id number] [address] [place] [address], [place] [address] Feb, [facility] [address] [id number] [address] [place] [address], [place] [address] Feb, [facility] [address] [id number] [address] [place] [address], [place] [address] Feb, [facility] [address] [id number] [address] [place] [address], [place] [address] Feb, [facility] [address] [id number] [address] [place] [address], [place] [address] Feb, [facility] [address] [id number] [address] [place] [address], [place] [address] Feb, [facility] [address] [id number] [address] [place] [address], [place] [address] Jan, [facility] [address] [id number] [address] [place] [address], [place] [address] Jan, [facility] [address] [id number] [address] [place] [address], [place] [address] Jan, [facility] [address] [id number] [address] [place] [address], [place] [address] Jan, [facility] [address] [id number] [address] [place] [address], [place] [address] Dec, [facility] [address] [id number] [address] [place] [address], [place] [address] Dec, [facility] [address] [id number] [address] [place] [address], [place] [address] Dec, [facility] [address] [id number] [address] [place] [address], [place] [address] Dec, [facility] [address] [id number] [address] [place] [address], [place] [address] Dec, [facility] [address] [id number] [address] [place] [address], [place] [address] Dec, [facility] [address] [id number] [address] [place] [address], [place] [address] Nov, [facility] [address] [id number] [address] [place] [address], [place] [address] Nov, [facility] [address] [id number] [address] [place] [address], [place] [address] Nov, [facility] [address] [id number] [address] [place] [address], [place] [address] Nov, [facility] [address] [id number] [address] [place] [address] Nov, [facility] [address] [id number] [address] [place] [address] Nov, [facility] [address] [id number] [address] [place] [address] Oct, [facility] [address] [id number] [address] [place] [address] Oct, [facility] [address] [id number] [address] [place] [address] Sep, [facility] [address] [id number] [address] [place] [address] Sep, [facility] [address] [id number] [address] [place] [address] Sep, [facility] [address] [id number] [address] [place] [address] Sep, [facility] [address] [id number] [address] [place] [address] Aug, IMMUNIZATIONS No Known Immunizations SOCIAL HISTORY [...]
--- OUTSIDE RECORDS SUMMARY | 2019-05-20 06:57 | XMS REPORT ---
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 [id number] [address] [place] [address] June, [facility] [address] [facility] [id number] [address] [place] [address] 29 May, 2014 [facility] [address] [facility] [id number] [address] [place] [address] May, Obesity 278.00 and Lumbago 7 24.2 [facility] [address] [facility] [id number] [address] [place] [id number] 14 May, 2014 [facility] [address] [facility] [id number] [address] [place] [id number] 13 May, 2014 [facility] [address] [id number] [address] [place] [id number] 18 Apr, 2014 [facility] [address] [id number] [address] [place] [address], [place] [address] 18 Apr, 2014 [facility] [address] [id number] [address] [place] [address], [place] [address] 18 Apr, 2014 [facility] [address] [id number] [address] [place] [id number] 18 Apr, 2014 [facility] [address] [id number] [address] [place] [phone] 11 Apr, 2014 [facility] [address] [id number] [address] [place] [address], [place] [address] Apr, [facility] [address] [id number] [address] [place] [phone] Mar, [facility] [address] [id number] [address] [place] [phone] Mar, [facility] [address] [id number] [address] [place] [phone] Mar, [facility] [address] [id number] [address] [place] [address], [place] [address] Mar, [facility] [address] [id number] [address] [place] [id number] 16 Mar, 2014 [facility] [address] [id number] [address] [place] [address] Mar, [facility] [address] [id number] [address] [place] [phone] Feb, [facility] [address] [id number] [address] [place] [phone] Feb, [facility] [address] [id number] [address] [place] [address] Feb, [facility] [address] [id number] [address] [place] [phone] Feb, [facility] [address] [id number] [address] [place] [address], [place] [address] Feb, [facility] [address] [id number] [address] [place] [address], [place] [address] Feb, [facility] [address] [id number] [address] [place] [address], [place] [address] Jan, [facility] [address] [id number] [address] [place] [address], [place] [address] Jan, [facility] [address] [id number] [address] [place] [address], [place] [address] Jan, [facility] [address] [id number] [address] [place] [address], [place] [address] Jan, [facility] [address] [id number] [address] [place] [address], [place] [address] Jan, [facility] [address] [id number] [address] [place] [address], [place] [address] Jan, [facility] [address] [id number] [address] [place] [address], [place] [address] Jan, [facility] [address] [id number] [address] [place] [address], [place] [address] Jan, [facility] [address] [id number] [address] [place] [address], [place] [address] Jan, [facility] [address] [id number] [address] [place] [address], [place] [address] Jan, [facility] [address] [id number] [address] [place] [address], [place] [address] Jan, [facility] [address] [id number] [address] [place] [address], [place] [address] Dec, [facility] [address] [id number] [address] [place] [address], [place] [address] Dec, [facility] [address] [id number] [address] [place] [address], [place] [address] Dec, [facility] [address] [id number] [address] [place] [address], [place] [address] Dec, [facility] [address] [id number] [address] [place] [address], [place] [address] Dec, [facility] [address] [id number] [address] [place] [address], [place] [address] Dec, [facility] [address] [id number] [address] [place] [address], [place] [address] Nov, [facility] [address] [id number] [address] [place] [address], [place] [address] Nov, [facility] [address] [id number] [address] [place] [address], [place] [address] Nov, [facility] [address] [id number] [address] [place] [address], [place] [address] Nov, [facility] [address] [id number] [address] [place] [address], [place] [address] Nov, [facility] [address] [id number] [address] [place] [address], [place] [address] Nov, [facility] [address] [id number] [address] [place] [phone] Oct, [facility] [address] [id number] [address] [place] [phone] Oct, 2013 [facility] [address] [id number] [address] [place] [phone] Oct, 2013 [facility] [address] [id number] [address] [place] [address], [place] [address] Oct, 2013 [facility] [address] [id number] [address] [place] [address], [place] [address] Oct, 2013 [facility] [address] [id number] [address] [place] [address], [place] [address] Oct, 2013 [facility] [address] [id number] [address] [place] [address], [place] [address] Sep, [facility] [address] [id number] [address] [place] [address], [place] [address] Sep, [facility] [address] [id number] [address] [place] [address], [place] [address] Sep, [facility] [address] [id number] [address] [place] [address], [place] [address] Sep, [facility] [address] [id number] [address] [place] [address], [place] [address] Aug, [facility] [address] [id number] [address] [place] [address], [place] [address] Aug, [facility] [address] [id number] [address] [place] [address], [place] [address] Jul, [facility] [address] [id number] [address] [place] [address], [place] [address] Jul, [facility] [address] [id number] [address] [place] [address], [place] [address] Jul, [facility] [address] [id number] [address] [place] [address], [place] [address] Jul, [facility] [address] [id number] [address] [place] [address], [place] [address] Jul, [facility] [address] [id number] [address] [place] [address], [place] [address] Jul, [facility] [address] [id number] [address] [place] [address], [place] [address] June, [facility] [address] [id number] [address] [place] [address], [place] [address] June, [facility] [address] [id number] [address] [place] [address], [place] [address] June, [facility] [address] [id number] [address] [place] [address], [place] [address] June, [facility] [address] [id number] [address] [place] [address], [place] [address] June, [facility] [address] [id number] [address] [place] [address], [place] [address] June, [facility] [address] [id number] [address] [place] [address], [place] [address] June, [facility] [address] [id number] [address] [place] [address], [place] [address] June, [facility] [address] [id number] [address] [place] [address], [place] [address] June, [facility] [address] [id number] [address] [place] [address], [place] [address] June, [facility] [address] [id number] [address] [place] [address], [place] [address] June, [facility] [address] [id number] [address] [place] [address], [place] [address] June, [facility] [address] [id number] [address] [place] [address], [place] [address] June, [facility] [address] [id number] [address] [place] [address], [place] [address] June, [facility] [address] [id number] [address] [place] [address], [place] [address] June, [facility] [address] [id number] [address] [place] [address], [place] [address] June, [facility] [address] [id number] [address] [place] [address], [place] [address] May, [facility] [address] [id number] [address] [place] [address], [place] [address] May, [facility] [address] [id number] [address] [place] [address], [place] [address] May, [facility] [address] [id number] [address] [place] [id number] 16 May, 2013 [facility] [address] [id number] [address] [place] [address], [place] [address] 31 Apr, 2013 [facility] [address] [id number] [address] [place] [address], [place] [address] 31 Apr, 2013 [facility] [address] [id number] [address] [place] [address], [place] [address] 18 Apr, 2013 [facility] [address] [id number] [address] [place] [address], [place] [address] 18 Apr, 2013 [facility] [address] [id number] [address] [place] [address], [place] [address] 14 Apr, 2013 [facility] [address] [id number] [address] [place] [address], [place] [address] 14 Apr, 2013 [facility] [address] [id number] [address] [place] [address], [place] [address] 25 Mar, 2013 [facility] [address] [id number] [address] [place] [address], [place] [address] Mar, [facility] [address] [id number] [address] [place] [address], [place] [address] Mar, [facility] [address] [id number] [address] [place] [address], [place] [address] 18 Mar, 2013 [facility] [address] [id number] [address] [place] [address], [place] [address] Mar, [facility] [address] [id number] [address] [place] [address], [place] [address] Feb, [facility] [address] [id number] [address] [place] [address], [place] [address] Feb, [facility] [address] [id number] [address] [place] [address], [place] [address] Feb, [facility] [address] [id number] [address] [place] [address], [place] [address] Feb, [facility] [address] [id number] [address] [place] [address], [place] [address] Feb, [facility] [address] [id number] [address] [place] [address], [place] [address] Feb, [facility] [address] [id number] [address] [place] [address], [place] [address] Jan, [facility] [address] [id number] [address] [place] [address], [place] [address] Jan, [facility] [address] [id number] [address] [place] [address], [place] [address] Jan, [facility] [address] [id number] [address] [place] [address], [place] [address] Jan, [facility] [address] [id number] [address] [place] [address], [place] [address] Dec, [facility] [address] [id number] [address] [place] [address], [place] [address] Dec, [facility] [address] [id number] [address] [place] [address], [place] [address] Dec, [facility] [address] [id number] [address] [place] [address], [place] [address] Dec, [facility] [address] [id number] [address] [place] [address], [place] [address] Dec, [facility] [address] [id number] [address] [place] [address], [place] [address] Dec, [facility] [address] [id number] [address] [place] [address], [place] [address] Nov, [facility] [address] [id number] [address] [place] [address], [place] [address] Nov, [facility] [address] [id number] [address] [place] [address], [place] [address] Nov, [facility] [address] [id number] [address] [place] [address], [place] [address] Nov, [facility] [address] [id number] [address] [place] [address] Nov, [facility] [address] [id number] [address] [place] [address] Nov, [facility] [address] [id number] [address] [place] [address] Oct, [facility] [address] [id number] [address] [place] [address] Oct, [facility] [address] [id number] [address] [place] [address] Sep, [facility] [address] [id number] [address] [place] [address] Sep, [facility] [address] [id number] [address] [place] [address] Sep, [facility] [address] [id number] [address] [place] [address] Sep, [facility] [address] [id number] [address] [place] [address] Aug, IMMUNIZATIONS No Known Immunizations SOCIAL HISTORY [...]
--- OUTSIDE RECORDS SUMMARY | 2019-05-20 06:57 | XMS REPORT ---
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 46349219 Problem Edema 782.3 Active 086323200 Problem Pain in joint, shoulder region 719.41 Active 749853575 Problem Lumbago 724.2 Active 093110375 Problem Anxiety state, unspecified 300.00 Act ahmet [id number] ALLERGIES No Information ENCOUNTERS Encounter Location Date Diagnosis [facility] [address] [id number] [address] [place] [id number] June, [facility] [address] [facility] [id number] [address] [place] [phone] June, [facility] [address] [facility] [id number] [address] [place] [id number] 29 May, 2014 [facility] [address] [facility] [id number] [address] [place] [id number] 28 May, 2014 Obesity 278.00 and Lumbago 7 24.2 [facility] [address] [facility] [id number] [address] [place] [id number] 14 May, 2014 [facility] [address] [facility] [id number] [address] [place] [id number] 13 May, 2014 [facility] [address] [id number] [address] [place] [id number] 18 Apr, 2014 [facility] [address] [id number] [address] [place] [address], [place] [address] 18 Apr, 2014 [facility] [address] [id number] [address] [place] [address], [place] [address] 18 Apr, 2014 [facility] [address] [id number] [address] [place] [id number] 18 Apr, 2014 [facility] [address] [id number] [address] [place] [id number] 11 Apr, 2014 [facility] [address] [id number] [address] [place] [address], [place] [address] Apr, [facility] [address] [id number] [address] [place] [phone] Mar, [facility] [address] [id number] [address] [place] [phone] Mar, [facility] [address] [id number] [address] [place] [phone] Mar, [facility] [address] [id number] [address] [place] [address], [place] [address] Mar, [facility] [address] [id number] [address] [place] [id number] 16 Mar, 2014 [facility] [address] [id number] [address] [place] [phone] Mar, [facility] [address] [id number] [address] [place] [id number] Feb, [facility] [address] [id number] [address] [place] [phone] Feb, [facility] [address] [id number] [address] [place] [phone] Feb, [facility] [address] [id number] [address] [place] [phone] Feb, [facility] [address] [id number] [address] [place] [address], [place] [address] Feb, [facility] [address] [id number] [address] [place] [address], [place] [address] Feb, [facility] [address] [id number] [address] [place] [address], [place] [address] Jan, [facility] [address] [id number] [address] [place] [address], [place] [address] Jan, [facility] [address] [id number] [address] [place] [address], [place] [address] Jan, [facility] [address] [id number] [address] [place] [address], [place] [address] Jan, [facility] [address] [id number] [address] [place] [address], [place] [address] Jan, [facility] [address] [id number] [address] [place] [address], [place] [id number] Jan, [facility] [address] [id number] [address] [place] [address], [place] [address] Jan, [facility] [address] [id number] [address] [place] [address], [place] [address] Jan, [facility] [address] [id number] [address] [place] [address], [place] [address] Jan, [facility] [address] [id number] [address] [place] [address], [place] [address] Jan, [facility] [address] [id number] [address] [place] [address], [place] [address] Jan, [facility] [address] [id number] [address] [place] [address], [place] [address] Dec, [facility] [address] [id number] [address] [place] [address], [place] [address] Dec, [facility] [address] [id number] [address] [place] [address], [place] [address] Dec, [facility] [address] [id number] [address] [place] [address], [place] [address] Dec, [facility] [address] [id number] [address] [place] [address], [place] [address] Dec, [facility] [address] [id number] [address] [place] [address], [place] [address] Dec, [facility] [address] [id number] [address] [place] [address], [place] [address] Nov, [facility] [address] [id number] [address] [place] [address], [place] [address] Nov, [facility] [address] [id number] [address] [place] [address], [place] [address] Nov, [facility] [address] [id number] [address] [place] [address], [place] [address] Nov, [facility] [address] [id number] [address] [place] [address], [place] [address] Nov, [facility] [address] [id number] [address] [place] [address], [place] [address] Nov, [facility] [address] [id number] [address] [place] [id number] Oct, [facility] [address] [id number] [address] [place] [id number] Oct, 2013 [facility] [address] [id number] [address] [place] [id number] Oct, 2013 [facility] [address] [id number] [address] [place] [address], [place] [address] Oct, 2013 [facility] [address] [id number] [address] [place] [address], [place] [address] Oct, 2013 [facility] [address] [id number] [address] [place] [address], [place] [address] Oct, 2013 [facility] [address] [id number] [address] [place] [address], [place] [address] Sep, [facility] [address] [id number] [address] [place] [address], [place] [address] Sep, [facility] [address] [id number] [address] [place] [address], [place] [address] Sep, [facility] [address] [id number] [address] [place] [address], [place] [address] Sep, [facility] [address] [id number] [address] [place] [address], [place] [address] Aug, [facility] [address] [id number] [address] [place] [address], [place] [address] Aug, [facility] [address] [id number] [address] [place] [address], [place] [address] Jul, [facility] [address] [id number] [address] [place] [address], [place] [address] Jul, [facility] [address] [id number] [address] [place] [address], [place] [address] Jul, [facility] [address] [id number] [address] [place] [address], [place] [address] Jul, [facility] [address] [id number] [address] [place] [address], [place] [address] Jul, [facility] [address] [id number] [address] [place] [address], [place] [address] Jul, [facility] [address] [id number] [address] [place] [address], [place] [address] June, [facility] [address] [id number] [address] [place] [address], [place] [address] June, [facility] [address] [id number] [address] [place] [address], [place] [address] June, [facility] [address] [id number] [address] [place] [address], [place] [address] June, [facility] [address] [id number] [address] [place] [address], [place] [address] June, [facility] [address] [id number] [address] [place] [address], [place] [address] June, [facility] [address] [id number] [address] [place] [address], [place] [address] June, [facility] [address] [id number] [address] [place] [address], [place] [address] June, [facility] [address] [id number] [address] [place] [address], [place] [address] June, [facility] [address] [id number] [address] [place] [address], [place] [address] June, [facility] [address] [id number] [address] [place] [address], [place] [address] June, [facility] [address] [id number] [address] [place] [address], [place] [address] June, [facility] [address] [id number] [address] [place] [address], [place] [address] June, [facility] [address] [id number] [address] [place] [address], [place] [address] June, [facility] [address] [id number] [address] [place] [address], [place] [address] June, [facility] [address] [id number] [address] [place] [address], [place] [address] June, [facility] [address] [id number] [address] [place] [address], [place] [address] May, [facility] [address] [id number] [address] [place] [address], [place] [address] May, [facility] [address] [id number] [address] [place] [address], [place] [address] May, [facility] [address] [id number] [address] [place] [id number] 16 May, 2013 [facility] [address] [id number] [address] [place] [address], [place] [address] 31 Apr, 2013 [facility] [address] [id number] [address] [place] [address], [place] [address] 31 Apr, 2013 [facility] [address] [id number] [address] [place] [address], [place] [address] 18 Apr, 2013 [facility] [address] [id number] [address] [place] [address], [place] [address] 18 Apr, 2013 [facility] [address] [id number] [address] [place] [address], [place] [address] 14 Apr, 2013 [facility] [address] [id number] [address] [place] [address], [place] [address] 14 Apr, 2013 [facility] [address] [id number] [address] [place] [address], [place] [address] 25 Mar, 2013 [facility] [address] [id number] [address] [place] [address], [place] [address] Mar, [facility] [address] [id number] [address] [place] [address], [place] [address] Mar, [facility] [address] [id number] [address] [place] [address], [place] [address] 18 Mar, 2013 [facility] [address] [id number] [address] [place] [address], [place] [address] Mar, [facility] [address] [id number] [address] [place] [address], [place] [address] Feb, [facility] [address] [id number] [address] [place] [address], [place] [address] Feb, [facility] [address] [id number] [address] [place] [address], [place] [address] Feb, [facility] [address] [id number] [address] [place] [address], [place] [address] Feb, [facility] [address] [id number] [address] [place] [address], [place] [address] Feb, [facility] [address] [id number] [address] [place] [address], [place] [address] Feb, [facility] [address] [id number] [address] [place] [address], [place] [address] Jan, [facility] [address] [id number] [address] [place] [address], [place] [address] Jan, [facility] [address] [id number] [address] [place] [address], [place] [address] Jan, [facility] [address] [id number] [address] [place] [address], [place] [address] Jan, [facility] [address] [id number] [address] [place] [address], [place] [address] Dec, [facility] [address] [id number] [address] [place] [address], [place] [address] Dec, [facility] [address] [id number] [address] [place] [address], [place] [address] Dec, [facility] [address] [id number] [address] [place] [address], [place] [address] Dec, [facility] [address] [id number] [address] [place] [address], [place] [address] Dec, [facility] [address] [id number] [address] [place] [address], [place] [address] Dec, [facility] [address] [id number] [address] [place] [address], [place] [address] Nov, [facility] [address] [id number] [address] [place] [address], [place] [address] Nov, [facility] [address] [id number] [address] [place] [address], [place] [address] Nov, [facility] [address] [id number] [address] [place] [address], [place] [address] Nov, [facility] [address] [id number] [address] [place] [id number] Nov, [facility] [address] [id number] [address] [place] [id number] Nov, [facility] [address] [id number] [address] [place] [id number] Oct, [facility] [address] [id number] [address] [place] [id number] Oct, [facility] [address] [id number] [address] [place] [id number] Sep, [facility] [address] [id number] [address] [place] [id number] Sep, [facility] [address] [id number] [address] [place] [id number] Sep, [facility] [address] [id number] [address] [place] [id number] Sep, [facility] [address] [id number] [address] [place] [id number] Aug, IMMUNIZATIONS No Known Immunizations SOCIAL HISTORY [...]
--- OUTSIDE RECORDS SUMMARY | 2019-05-20 06:57 | XMS REPORT ---
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 71924480 Problem Edema 782.3 Active 236689560 Problem Pain in joint, shoulder region 719.41 Active 662284907 Problem Lumbago 724.2 Active 506475336 Problem Anxiety state, unspecified 300.00 Act ahmet [id number] ALLERGIES No Information ENCOUNTERS Encounter Location Date Diagnosis [facility] [address] [facility] [id number] [address] [place] [id number] June, [facility] [address] [facility] [id number] [address] [place] [id number] June, [facility] [address] [facility] [id number] [address] [place] [id number] 29 May, 2014 [facility] [address] [facility] [id number] [address] [place] [id number] 28 May, 2014 Obesity 278.00 and Lumbago 7 24.2 [facility] [address] [facility] [id number] [address] [place] [id number] 14 May, 2014 [facility] [address] [facility] [id number] [address] [place] [id number] May, [facility] [address] [facility] [id number] [address] [place] [id number] Apr, [facility] [address] [facility] [id number] [address] [place] [id number] 18 Apr, 2014 [facility] [address] [id number] [address] [place] [address], [place] [address] 18 Apr, 2014 [facility] [address] [id number] [address] [place] [address], [place] [address] 18 Apr, 2014 [facility] [address] [id number] [address] [place] [address], [place] [address] Apr, [facility] [address] [id number] [address] [place] [address], [place] [address] Apr, [facility] [address] [id number] [address] [place] [address], [place] [address] Mar, [facility] [address] [id number] [address] [place] [address], [place] [address] Mar, [facility] [address] [id number] [address] [place] [address], [place] [address] Mar, [facility] [address] [id number] [address] [place] [address], [place] [address] Mar, [facility] [address] [id number] [address] [place] [address], [place] [address] Mar, [facility] [address] [id number] [address] [place] [address], [place] [address] Mar, [facility] [address] [id number] [address] [place] [address], [place] [address] Feb, [facility] [address] [id number] [address] [place] [address], [place] [address] Feb, [facility] [address] [id number] [address] [place] [address], [place] [address] Feb, [facility] [address] [id number] [address] [place] [address], [place] [address] Feb, [facility] [address] [id number] [address] [place] [address], [place] [address] Feb, [facility] [address] [id number] [address] [place] [address], [place] [address] Feb, [facility] [address] [id number] [address] [place] [address], [place] [address] Jan, [facility] [address] [id number] [address] [place] [address], [place] [address] Jan, [facility] [address] [id number] [address] [place] [address], [place] [address] Jan, [facility] [address] [id number] [address] [place] [address], [place] [address] Jan, [facility] [address] [id number] [address] [place] [address], [place] [address] Jan, [facility] [address] [id number] [address] [place] [address], [place] [address] Jan, [facility] [address] [id number] [address] [place] [address], [place] [address] Jan, [facility] [address] [id number] [address] [place] [address], [place] [address] Jan, [facility] [address] [id number] [address] [place] [address], [place] [address] Jan, [facility] [address] [id number] [address] [place] [address], [place] [address] Jan, [facility] [address] [id number] [address] [place] [address], [place] [address] Jan, [facility] [address] [id number] [address] [place] [address], [place] [address] Dec, [facility] [address] [id number] [address] [place] [address], [place] [address] Dec, [facility] [address] [id number] [address] [place] [address], [place] [address] Dec, [facility] [address] [id number] [address] [place] [address], [place] [address] Dec, [facility] [address] [id number] [address] [place] [address], [place] [address] Dec, [facility] [address] [id number] [address] [place] [address], [place] [address] Dec, [facility] [address] [id number] [address] [place] [address], [place] [address] Nov, [facility] [address] [id number] [address] [place] [address], [place] [address] Nov, [facility] [address] [id number] [address] [place] [address], [place] [address] Nov, [facility] [address] [id number] [address] [place] [address], [place] [address] Nov, [facility] [address] [id number] [address] [place] [address], [place] [address] Nov, [facility] [address] [id number] [address] [place] [address], [place] [address] Nov, [facility] [address] [id number] [address] [place] [address], [place] [address] Oct, [facility] [address] [id number] [address] [place] [address], [place] [address] Oct, [facility] [address] [id number] [address] [place] [address], [place] [address] Oct, [facility] [address] [id number] [address] [place] [address] Oct, [facility] [address] [id number] [address] [place] [address], [place] [address] Oct, [facility] [address] [id number] [address] [place] [address], [place] [address] Oct, [facility] [address] [id number] [address] [place] [address], [place] [address] Sep, [facility] [address] [id number] [address] [place] [address], [place] [address] Sep, [facility] [address] [id number] [address] [place] [address], [place] [address] Sep, [facility] [address] [id number] [address] [place] [address], [place] [address] Sep, [facility] [address] [id number] [address] [place] [address], [place] [address] Aug, [facility] [address] [id number] [address] [place] [address], [place] [address] Aug, [facility] [address] [id number] [address] [place] [address], [place] [address] Jul, [facility] [address] [id number] [address] [place] [address], [place] [address] Jul, [facility] [address] [id number] [address] [place] [address], [place] [address] Jul, [facility] [address] [id number] [address] [place] [address], [place] [address] Jul, [facility] [address] [id number] [address] [place] [address], [place] [address] Jul, [facility] [address] [id number] [address] [place] [address], [place] [address] Jul, [facility] [address] [id number] [address] [place] [address], [place] [address] June, [facility] [address] [id number] [address] [place] [address], [place] [address] June, [facility] [address] [id number] [address] [place] [address], [place] [address] June, [facility] [address] [id number] [address] [place] [address], [place] [address] June, [facility] [address] [id number] [address] [place] [address], [place] [address] June, [facility] [address] [id number] [facility] [place] [address] June, [facility] [address] [id number] [address] [place] [address], [place] [address] June, [facility] [address] [id number] [address] [place] [address], [place] [address] June, [facility] [address] [id number] [address] [place] [address], [place] [address] June, [facility] [address] [id number] [address] [place] [address], [place] [address] June, [facility] [address] [id number] [address] [place] [address], [place] [address] June, [facility] [address] [id number] [address] [place] [address], [place] [address] June, [facility] [address] [id number] [address] [place] [address], [place] [address] June, [facility] [address] [id number] [address] [place] [address], [place] [address] June, [facility] [address] [id number] [address] [place] [address], [place] [address] June, [facility] [address] [id number] [address] [place] [address], [place] [address] June, [facility] [address] [id number] [address] [place] [address], [place] [address] May, [facility] [address] [id number] [address] [place] [address], [place] [address] May, [facility] [address] [id number] [address] [place] [address], [place] [address] May, [facility] [address] [id number] [address] [place] [address], [place] [address] May, [facility] [address] [id number] [address] [place] [address], [place] [address] 31 Apr, 2013 [facility] [address] [id number] [address] [place] [address], [place] [address] 31 Apr, 2013 [facility] [address] [id number] [address] [place] [address], [place] [address] 18 Apr, 2013 [facility] [address] [id number] [address] [place] [address], [place] [address] 18 Apr, 2013 [facility] [address] [id number] [address] [place] [address], [place] [address] 14 Apr, 2013 [facility] [address] [id number] [address] [place] [address], [place] [address] 14 Apr, 2013 [facility] [address] [id number] [address] [place] [address], [place] [address] 25 Mar, 2013 [facility] [address] [id number] [address] [place] [address], [place] [address] Mar, [facility] [address] [id number] [address] [place] [address], [place] [address] Mar, [facility] [address] [id number] [address] [place] [address], [place] [address] 18 Mar, 2013 [facility] [address] [id number] [address] [place] [address], [place] [address] 18 Mar, 2013 [facility] [address] [id number] [address] [place] [address], [place] [address] Feb, [facility] [address] [id number] [address] [place] [address], [place] [address] Feb, [facility] [address] [id number] [address] [place] [address], [place] [address] Feb, [facility] [address] [id number] [address] [place] [address], [place] [address] Feb, [facility] [address] [id number] [address] [place] [address], [place] [address] Feb, [facility] [address] [id number] [address] [place] [address], [place] [address] Feb, [facility] [address] [id number] [address] [place] [address], [place] [address] Jan, [facility] [address] [id number] [address] [place] [address], [place] [address] Jan, [facility] [address] [id number] [address] [place] [address], [place] [address] Jan, [facility] [address] [id number] [address] [place] [address], [place] [address] Jan, [facility] [address] [id number] [address] [place] [address], [place] [address] Dec, [facility] [address] [id number] [address] [place] [address], [place] [address] Dec, [facility] [address] [id number] [address] [place] [address], [place] [address] Dec, [facility] [address] [id number] [address] [place] [address], [place] [address] Dec, [facility] [address] [id number] [address] [place] [address], [place] [address] Dec, [facility] [address] [id number] [address] [place] [address], [place] [address] Dec, [facility] [address] [id number] [address] [place] [address], [place] [address] Nov, [facility] [address] [id number] [address] [place] [address], [place] [address] Nov, [facility] [address] [id number] [address] [place] [address], [place] [address] Nov, [facility] [address] [id number] [address] [place] [address], [place] [address] Nov, [facility] [address] [id number] [address] [place] [address] [address] Nov, [facility] [address] [id number] [address] [place] [address] Nov, [facility] [address] [id number] [address] [place] [address] Oct, [facility] [address] [id number] [address] [place] [address] Oct, [facility] [address] [id number] [address] [place] [address] Sep, [facility] [address] [id number] [address] [place] [address] Sep, [facility] [address] [id number] [address] [place] [id number] Sep, [facility] [address] [id number] [address] [place] [address] Sep, [facility] [address] [id number] [address] [place] [address] Aug, IMMUNIZATIONS No Known Immunizations SOCIAL HISTORY [...]
--- OUTSIDE RECORDS SUMMARY | 2019-05-20 06:57 | XMS REPORT ---
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 06081168 Problem Edema 782.3 Active 226000313 Problem Pain in joint, shoulder region 719.41 Active 083635301 Problem Lumbago 724.2 Active 839569447 Problem Anxiety state, unspecified 300.00 Act ahmet [id number] ALLERGIES No Information ENCOUNTERS Encounter Location Date Diagnosis [facility] [address] [id number] [address] [place] [phone] June, [facility] [address] [facility] [id number] [address] [place] [phone] June, [facility] [address] [facility] [id number] [address] [place] [id number] 29 May, 2014 [facility] [address] [facility] [id number] [address] [place] [id number] 28 May, 2014 Obesity 278.00 and Lumbago 7 24.2 [facility] [address] [facility] [id number] [address] [place] [id number] 14 May, 2014 [facility] [address] [facility] [id number] [address] [place] [id number] 13 May, 2014 [facility] [address] [id number] [address] [place] [id number] 18 Apr, 2014 [facility] [address] [id number] [address] [place] [address], [place] [address] 18 Apr, 2014 [facility] [address] [id number] [address] [place] [address], [place] [address] 18 Apr, 2014 [facility] [address] [id number] [address] [place] [id number] 18 Apr, 2014 [facility] [address] [id number] [address] [place] [id number] 11 Apr, 2014 [facility] [address] [id number] [address] [place] [address], [place] [address] Apr, [facility] [address] [id number] [address] [place] [id number] Mar, [facility] [address] [id number] [address] [place] [phone] Mar, [facility] [address] [id number] [address] [place] [address] Mar, [facility] [address] [id number] [address] [place] [address], [place] [address] Mar, [facility] [address] [id number] [address] [place] [id number] 16 Mar, 2014 [facility] [address] [id number] [address] [place] [phone] Mar, [facility] [address] [id number] [address] [place] [id number] Feb, [facility] [address] [id number] [address] [place] [id number] Feb, [facility] [address] [id number] [address] [place] [id number] Feb, [facility] [address] [id number] [address] [place] [address] Feb, [facility] [address] [id number] [address] [place] [address], [place] [address] Feb, [facility] [address] [id number] [address] [place] [address], [place] [address] Feb, [facility] [address] [id number] [address] [place] [address], [place] [address] Jan, [facility] [address] [id number] [address] [place] [address], [place] [address] Jan, [facility] [address] [id number] [address] [place] [address], [place] [address] Jan, [facility] [address] [id number] [address] [place] [address], [place] [address] Jan, [facility] [address] [id number] [address] [place] [address], [place] [address] Jan, [facility] [address] [id number] [address] [place] [address], [place] [address] Jan, [facility] [address] [id number] [address] [place] [address], [place] [address] Jan, [facility] [address] [id number] [address] [place] [address], [place] [address] Jan, [facility] [address] [id number] [address] [place] [address], [place] [address] Jan, [facility] [address] [id number] [address] [place] [address], [place] [address] Jan, [facility] [address] [id number] [address] [place] [address], [place] [address] Jan, [facility] [address] [id number] [address] [place] [address], [place] [address] Dec, [facility] [address] [id number] [address] [place] [address], [place] [address] Dec, [facility] [address] [id number] [address] [place] [address], [place] [address] Dec, [facility] [address] [id number] [address] [place] [address], [place] [address] Dec, [facility] [address] [id number] [address] [place] [address], [place] [address] Dec, [facility] [address] [id number] [address] [place] [address], [place] [address] Dec, [facility] [address] [id number] [address] [place] [address], [place] [address] Nov, [facility] [address] [id number] [address] [place] [address], [place] [address] Nov, [facility] [address] [id number] [address] [place] [address], [place] [address] Nov, [facility] [address] [id number] [address] [place] [address], [place] [address] Nov, [facility] [address] [id number] [address] [place] [address], [place] [address] Nov, [facility] [address] [id number] [address] [place] [address], [place] [address] Nov, [facility] [address] [id number] [address] [place] [id number] Oct, [facility] [address] [id number] [address] [place] [address] Oct, 2013 [facility] [address] [id number] [address] [place] [address] Oct, 2013 [facility] [address] [id number] [address] [place] [address], [place] [address] Oct, 2013 [facility] [address] [id number] [address] [place] [address], [place] [address] Oct, 2013 [facility] [address] [id number] [address] [place] [address], [place] [address] Oct, 2013 [facility] [address] [id number] [address] [place] [address], [place] [address] Sep, [facility] [address] [id number] [address] [place] [address], [place] [address] Sep, [facility] [address] [id number] [address] [place] [address], [place] [address] Sep, [facility] [address] [id number] [address] [place] [address], [place] [address] Sep, [facility] [address] [id number] [address] [place] [address], [place] [address] Aug, [facility] [address] [id number] [address] [place] [address], [place] [address] Aug, [facility] [address] [id number] [address] [place] [address], [place] [address] Jul, [facility] [address] [id number] [address] [place] [address], [place] [address] Jul, [facility] [address] [id number] [address] [place] [address], [place] [address] Jul, [facility] [address] [id number] [address] [place] [address], [place] [address] Jul, [facility] [address] [id number] [address] [place] [address], [place] [address] Jul, [facility] [address] [id number] [address] [place] [address], [place] [address] Jul, [facility] [address] [id number] [address] [place] [address], [place] [address] June, [facility] [address] [id number] [address] [place] [address], [place] [address] June, [facility] [address] [id number] [address] [place] [address], [place] [address] June, [facility] [address] [id number] [address] [place] [address], [place] [address] June, [facility] [address] [id number] [address] [place] [address], [place] [address] June, [facility] [address] [id number] [address] [place] [address], [place] [address] June, [facility] [address] [id number] [address] [place] [address], [place] [address] June, [facility] [address] [id number] [address] [place] [address], [place] [address] June, [facility] [address] [id number] [address] [place] [address], [place] [address] June, [facility] [address] [id number] [address] [place] [address], [place] [address] June, [facility] [address] [id number] [address] [place] [address], [place] [address] June, [facility] [address] [id number] [address] [place] [address], [place] [address] June, [facility] [address] [id number] [address] [place] [address], [place] [address] June, [facility] [address] [id number] [address] [place] [address], [place] [address] June, [facility] [address] [id number] [address] [place] [address], [place] [address] June, [facility] [address] [id number] [address] [place] [address], [place] [address] June, [facility] [address] [id number] [address] [place] [address], [place] [address] May, [facility] [address] [id number] [address] [place] [address], [place] [address] May, [facility] [address] [id number] [address] [place] [address], [place] [address] May, [facility] [address] [id number] [address] [place] [id number] 16 May, 2013 [facility] [address] [id number] [address] [place] [address], [place] [address] 31 Apr, 2013 [facility] [address] [id number] [address] [place] [address], [place] [address] 31 Apr, 2013 [facility] [address] [id number] [address] [place] [address], [place] [address] 18 Apr, 2013 [facility] [address] [id number] [address] [place] [address], [place] [address] 18 Apr, 2013 [facility] [address] [id number] [address] [place] [address], [place] [address] 14 Apr, 2013 [facility] [address] [id number] [address] [place] [address], [place] [address] 14 Apr, 2013 [facility] [address] [id number] [address] [place] [address], [place] [address] 25 Mar, 2013 [facility] [address] [id number] [address] [place] [address], [place] [address] Mar, [facility] [address] [id number] [address] [place] [address], [place] [address] Mar, [facility] [address] [id number] [address] [place] [address], [place] [address] 18 Mar, 2013 [facility] [address] [id number] [address] [place] [address], [place] [address] Mar, [facility] [address] [id number] [address] [place] [address], [place] [address] Feb, [facility] [address] [id number] [address] [place] [address], [place] [address] Feb, [facility] [address] [id number] [address] [place] [address], [place] [address] Feb, [facility] [address] [id number] [address] [place] [address], [place] [address] Feb, [facility] [address] [id number] [address] [place] [address], [place] [address] Feb, [facility] [address] [id number] [address] [place] [address], [place] [address] Feb, [facility] [address] [id number] [address] [place] [address], [place] [address] Jan, [facility] [address] [id number] [address] [place] [address], [place] [address] Jan, [facility] [address] [id number] [address] [place] [address], [place] [address] Jan, [facility] [address] [id number] [address] [place] [address], [place] [address] Jan, [facility] [address] [id number] [address] [place] [address], [place] [address] Dec, [facility] [address] [id number] [address] [place] [address], [place] [address] Dec, [facility] [address] [id number] [address] [place] [address], [place] [address] Dec, [facility] [address] [id number] [address] [place] [address], [place] [address] Dec, [facility] [address] [id number] [address] [place] [address], [place] [address] Dec, [facility] [address] [id number] [address] [place] [address], [place] [address] Dec, [facility] [address] [id number] [address] [place] [address], [place] [address] Nov, [facility] [address] [id number] [address] [place] [address], [place] [address] Nov, [facility] [address] [id number] [address] [place] [address], [place] [address] Nov, [facility] [address] [id number] [address] [place] [address], [place] [address] Nov, [facility] [address] [id number] [address] [place] [id number] Nov, [facility] [address] [id number] [address] [place] [id number] Nov, [facility] [address] [id number] [address] [place] [id number] Oct, [facility] [address] [id number] [address] [place] [id number] Oct, [facility] [address] [id number] [address] [place] [id number] Sep, [facility] [address] [id number] [address] [place] [id number] Sep, [facility] [address] [id number] [address] [place] [id number] Sep, [facility] [address] [id number] [address] [place] [id number] Sep, [facility] [address] [id number] [address] [place] [id number] Aug, IMMUNIZATIONS No Known Immunizations SOCIAL HISTORY Never Assessed REASON FOR VISIT PLAN OF CARE VITAL SIGNS Height 64 in 2014-05-12 Weight 333.3 lbs 2014-05-12 Temperature 97.3 degrees Fahrenheit 2014-05-12 Heart Rate 77 bpm 2014-05-12 Respiratory Rate 22 2014-05-12 Blood pressure systolic 140 mmHg 2014-05-12 Blood pressure diastolic 88 mmHg 2014-05-12 MEDICATIONS Unknown Medications RESULTS No Results PROCEDURES No Known procedures INSTRUCTIONS MEDICATIONS ADMINISTERED No Known Medications MEDICAL (GENERAL) HISTORY Type Description Date Medical History obesity Medical History arthritis back Medical History RLS Medical History migraines Surgical History cholecystectomy 2005 Surgical History orthopedic surgery- bulging disks at L4/L5 since 2008,bilat hip replacement, bilat knee replacement
--- OUTSIDE RECORDS SUMMARY | 2019-05-20 06:57 | XMS REPORT ---
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 [id number] [address] [place] [id number] June, [facility] [address] [facility] [id number] [address] [place] [id number] 29 May, 2014 [facility] [address] [facility] [id number] [address] [place] [id number] 28 May, 2014 Obesity 278.00 and Lumbago 7 24.2 [facility] [address] [facility] [id number] [address] [place] [address] 14 May, 2014 [facility] [address] [facility] [id number] [address] [place] [phone] 13 May, 2014 [facility] [address] [id number] [address] [place] [id number] 18 Apr, 2014 [facility] [address] [id number] [address] [place] [address], [place] [address] 18 Apr, 2014 [facility] [address] [id number] [address] [place] [address], [place] [address] 18 Apr, 2014 [facility] [address] [id number] [address] [place] [phone] 18 Apr, 2014 [facility] [address] [id number] [address] [place] [id number] 11 Apr, 2014 [facility] [address] [id number] [address] [place] [address], [place] [address] Apr, [facility] [address] [id number] [address] [place] [address] Mar, [facility] [address] [id number] [address] [place] [address] Mar, [facility] [address] [id number] [address] [place] [phone] Mar, [facility] [address] [id number] [address] [place] [address], [place] [address] Mar, [facility] [address] [id number] [address] [place] [id number] 16 Mar, 2014 [facility] [address] [id number] [address] [place] [address] Mar, [facility] [address] [id number] [address] [place] [phone] Feb, [facility] [address] [id number] [address] [place] [id number] Feb, [facility] [address] [id number] [address] [place] [address] Feb, [facility] [address] [id number] [address] [place] [address] Feb, [facility] [address] [id number] [address] [place] [address], [place] [address] Feb, [facility] [address] [id number] [address] [place] [address], [place] [address] Feb, [facility] [address] [id number] [address] [place] [address], [place] [address] Jan, [facility] [address] [id number] [address] [place] [address], [place] [address] Jan, [facility] [address] [id number] [address] [place] [address], [place] [address] Jan, [facility] [address] [id number] [address] [place] [address], [place] [address] Jan, [facility] [address] [id number] [address] [place] [address], [place] [address] Jan, [facility] [address] [id number] [address] [place] [address], [place] [address] Jan, [facility] [address] [id number] [address] [place] [address], [place] [address] Jan, [facility] [address] [id number] [address] [place] [address], [place] [address] Jan, [facility] [address] [id number] [address] [place] [address], [place] [address] Jan, [facility] [address] [id number] [address] [place] [address], [place] [address] Jan, [facility] [address] [id number] [address] [place] [address], [place] [address] Jan, [facility] [address] [id number] [address] [place] [address], [place] [address] Dec, [facility] [address] [id number] [address] [place] [address], [place] [address] Dec, [facility] [address] [id number] [address] [place] [address], [place] [address] Dec, [facility] [address] [id number] [address] [place] [address], [place] [address] Dec, [facility] [address] [id number] [address] [place] [address], [place] [address] Dec, [facility] [address] [id number] [address] [place] [address], [place] [address] Dec, [facility] [address] [id number] [address] [place] [address], [place] [address] Nov, [facility] [address] [id number] [address] [place] [address], [place] [address] Nov, [facility] [address] [id number] [address] [place] [address], [place] [address] Nov, [facility] [address] [id number] [address] [place] [address], [place] [address] Nov, [facility] [address] [id number] [address] [place] [address], [place] [address] Nov, [facility] [address] [id number] [address] [place] [address], [place] [address] Nov, [facility] [address] [id number] [address] [place] [address] Oct, [facility] [address] [id number] [address] [place] [address] Oct, 2013 [facility] [address] [id number] [address] [place] [address] Oct, 2013 [facility] [address] [id number] [address] [place] [address], [place] [address] Oct, 2013 [facility] [address] [id number] [address] [place] [address], [place] [address] Oct, 2013 [facility] [address] [id number] [address] [place] [address], [place] [address] Oct, 2013 [facility] [address] [id number] [address] [place] [address], [place] [address] Sep, [facility] [address] [id number] [address] [place] [address], [place] [address] Sep, [facility] [address] [id number] [address] [place] [address], [place] [address] Sep, [facility] [address] [id number] [address] [place] [address], [place] [address] Sep, [facility] [address] [id number] [address] [place] [address], [place] [address] Aug, [facility] [address] [id number] [address] [place] [address], [place] [address] Aug, [facility] [address] [id number] [address] [place] [address], [place] [address] Jul, [facility] [address] [id number] [address] [place] [address], [place] [address] Jul, [facility] [address] [id number] [address] [place] [address], [place] [address] Jul, [facility] [address] [id number] [address] [place] [address], [place] [address] Jul, [facility] [address] [id number] [address] [place] [address], [place] [address] Jul, [facility] [address] [id number] [address] [place] [address], [place] [address] Jul, [facility] [address] [id number] [address] [place] [address], [place] [address] June, [facility] [address] [id number] [address] [place] [address], [place] [address] June, [facility] [address] [id number] [address] [place] [address], [place] [address] June, [facility] [address] [id number] [address] [place] [address], [place] [address] June, [facility] [address] [id number] [address] [place] [address], [place] [address] June, [facility] [address] [id number] [address] [place] [address], [place] [address] June, [facility] [address] [id number] [address] [place] [address], [place] [address] June, [facility] [address] [id number] [address] [place] [address], [place] [address] June, [facility] [address] [id number] [address] [place] [address], [place] [address] June, [facility] [address] [id number] [address] [place] [address], [place] [address] June, [facility] [address] [id number] [address] [place] [address], [place] [address] June, [facility] [address] [id number] [address] [place] [address], [place] [address] June, [facility] [address] [id number] [address] [place] [address], [place] [address] June, [facility] [address] [id number] [address] [place] [address], [place] [address] June, [facility] [address] [id number] [address] [place] [address], [place] [address] June, [facility] [address] [id number] [address] [place] [address], [place] [address] June, [facility] [address] [id number] [address] [place] [address], [place] [address] May, [facility] [address] [id number] [address] [place] [address], [place] [address] May, [facility] [address] [id number] [address] [place] [address], [place] [address] May, [facility] [address] [id number] [address] [place] [address] 16 May, 2013 [facility] [address] [id number] [address] [place] [address], [place] [address] 31 Apr, 2013 [facility] [address] [id number] [address] [place] [address], [place] [address] 31 Apr, 2013 [facility] [address] [id number] [address] [place] [address], [place] [address] 18 Apr, 2013 [facility] [address] [id number] [address] [place] [address], [place] [address] 18 Apr, 2013 [facility] [address] [id number] [address] [place] [address], [place] [address] 14 Apr, 2013 [facility] [address] [id number] [address] [place] [address], [place] [address] 14 Apr, 2013 [facility] [address] [id number] [address] [place] [address], [place] [address] 25 Mar, 2013 [facility] [address] [id number] [address] [place] [address], [place] [address] Mar, [facility] [address] [id number] [address] [place] [address], [place] [address] Mar, [facility] [address] [id number] [address] [place] [address], [place] [address] 18 Mar, 2013 [facility] [address] [id number] [address] [place] [address], [place] [address] Mar, [facility] [address] [id number] [address] [place] [address], [place] [address] Feb, [facility] [address] [id number] [address] [place] [address], [place] [address] Feb, [facility] [address] [id number] [address] [place] [address], [place] [address] Feb, [facility] [address] [id number] [address] [place] [address], [place] [address] Feb, [facility] [address] [id number] [address] [place] [address], [place] [address] Feb, [facility] [address] [id number] [address] [place] [address], [place] [address] Feb, [facility] [address] [id number] [address] [place] [address], [place] [address] Jan, [facility] [address] [id number] [address] [place] [address], [place] [address] Jan, [facility] [address] [id number] [address] [place] [address], [place] [address] Jan, [facility] [address] [id number] [address] [place] [address], [place] [address] Jan, [facility] [address] [id number] [address] [place] [address], [place] [address] Dec, [facility] [address] [id number] [address] [place] [address], [place] [address] Dec, [facility] [address] [id number] [address] [place] [address], [place] [address] Dec, [facility] [address] [id number] [address] [place] [address], [place] [address] Dec, [facility] [address] [id number] [address] [place] [address], [place] [address] Dec, [facility] [address] [id number] [address] [place] [address], [place] [address] Dec, [facility] [address] [id number] [address] [place] [address], [place] [address] Nov, [facility] [address] [id number] [address] [place] [address], [place] [address] Nov, [facility] [address] [id number] [address] [place] [address], [place] [address] Nov, [facility] [address] [id number] [address] [place] [address], [place] [address] Nov, [facility] [address] [id number] [address] [place] [address] Nov, [facility] [address] [id number] [address] [place] [address] Nov, [facility] [address] [id number] [address] [place] [address] Oct, [facility] [address] [id number] [address] [place] [address] Oct, [facility] [address] [id number] [address] [place] [address] Sep, [facility] [address] [id number] [address] [place] [address] Sep, [facility] [address] [id number] [address] [place] [address] Sep, [facility] [address] [id number] [address] [place] [address] Sep, [facility] [address] [id number] [address] [place] [address] Aug, IMMUNIZATIONS No Known Immunizations SOCIAL HISTORY [...]
--- OUTSIDE RECORDS SUMMARY | 2019-05-20 06:57 | XMS REPORT ---
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 35402196 Problem Edema 782.3 Active 176480438 Problem Pain in joint, shoulder region 719.41 Active 546757309 Problem Lumbago 724.2 Active 437991631 Problem Anxiety state, unspecified 300.00 Act ahmet [id number] ALLERGIES No Information ENCOUNTERS Encounter Location Date Diagnosis [facility] [address] [id number] [address] [place] [address] June, [facility] [address] [facility] [id number] [address] [place] [address] June, [facility] [address] [facility] [id number] [address] [place] [address] 29 May, 2014 [facility] [address] [facility] [id number] [address] [place] [address] 28 May, 2014 Obesity 278.00 and Lumbago 7 24.2 [facility] [address] [facility] [id number] [address] [place] [address] 14 May, 2014 [facility] [address] [facility] [id number] [address] [place] [address] 13 May, 2014 [facility] [address] [id number] [address] [place] [address] 18 Apr, 2014 [facility] [address] [id number] [address] [place] [address], [place] [address] 18 Apr, 2014 [facility] [address] [id number] [address] [place] [address], [place] [address] 18 Apr, 2014 [facility] [address] [id number] [address] [place] [address] 18 Apr, 2014 [facility] [address] [id number] [address] [place] [address] 11 Apr, 2014 [facility] [address] [id number] [address] [place] [address], [place] [address] Apr, [facility] [address] [id number] [address] [place] [address] Mar, [facility] [address] [id number] [address] [place] [address] Mar, [facility] [address] [id number] [address] [place] [address] Mar, [facility] [address] [id number] [address] [place] [address], [place] [address] Mar, [facility] [address] [id number] [address] [place] [address] 16 Mar, 2014 [facility] [address] [id number] [address] [place] [address] Mar, [facility] [address] [id number] [address] [place] [address] Feb, [facility] [address] [id number] [address] [place] [address] Feb, [facility] [address] [id number] [address] [place] [address] Feb, [facility] [address] [id number] [address] [place] [address] Feb, [facility] [address] [id number] [address] [place] [address], [place] [address] Feb, [facility] [address] [id number] [address] [place] [address], [place] [address] Feb, [facility] [address] [id number] [address] [place] [address], [place] [address] Jan, [facility] [address] [id number] [address] [place] [address], [place] [address] Jan, [facility] [address] [id number] [address] [place] [address], [place] [address] Jan, [facility] [address] [id number] [address] [place] [address], [place] [address] Jan, [facility] [address] [id number] [address] [place] [address], [place] [address] Jan, [facility] [address] [id number] [address] [place] [address], [place] [address] Jan, [facility] [address] [id number] [address] [place] [address], [place] [address] Jan, [facility] [address] [id number] [address] [place] [address], [place] [address] Jan, [facility] [address] [id number] [address] [place] [address], [place] [address] Jan, [facility] [address] [id number] [address] [place] [address], [place] [address] Jan, [facility] [address] [id number] [address] [place] [address], [place] [address] Jan, [facility] [address] [id number] [address] [place] [address], [place] [address] Dec, [facility] [address] [id number] [address] [place] [address], [place] [address] Dec, [facility] [address] [id number] [address] [place] [address], [place] [address] Dec, [facility] [address] [id number] [address] [place] [address], [place] [address] Dec, [facility] [address] [id number] [address] [place] [address], [place] [address] Dec, [facility] [address] [id number] [address] [place] [address], [place] [address] Dec, [facility] [address] [id number] [address] [place] [address], [place] [address] Nov, [facility] [address] [id number] [address] [place] [address], [place] [address] Nov, [facility] [address] [id number] [address] [place] [address], [place] [address] Nov, [facility] [address] [id number] [address] [place] [address], [place] [address] Nov, [facility] [address] [id number] [address] [place] [address], [place] [address] Nov, [facility] [address] [id number] [address] [place] [address], [place] [address] Nov, [facility] [address] [id number] [address] [place] [address] Oct, [facility] [address] [id number] [address] [place] [address] Oct, 2013 [facility] [address] [id number] [address] [place] [address] Oct, 2013 [facility] [address] [id number] [address] [place] [address], [place] [address] Oct, 2013 [facility] [address] [id number] [address] [place] [address], [place] [address] Oct, 2013 [facility] [address] [id number] [address] [place] [address], [place] [address] Oct, 2013 [facility] [address] [id number] [address] [place] [address], [place] [address] Sep, [facility] [address] [id number] [address] [place] [address], [place] [address] Sep, [facility] [address] [id number] [address] [place] [address], [place] [address] Sep, [facility] [address] [id number] [address] [place] [address], [place] [address] Sep, [facility] [address] [id number] [address] [place] [address], [place] [address] Aug, [facility] [address] [id number] [address] [place] [address], [place] [address] Aug, [facility] [address] [id number] [address] [place] [address], [place] [address] Jul, [facility] [address] [id number] [address] [place] [address], [place] [address] Jul, [facility] [address] [id number] [address] [place] [address], [place] [address] Jul, [facility] [address] [id number] [address] [place] [address], [place] [address] Jul, [facility] [address] [id number] [address] [place] [address], [place] [address] Jul, [facility] [address] [id number] [address] [place] [address], [place] [address] Jul, [facility] [address] [id number] [address] [place] [address], [place] [address] June, [facility] [address] [id number] [address] [place] [address], [place] [address] June, [facility] [address] [id number] [address] [place] [address], [place] [address] June, [facility] [address] [id number] [address] [place] [address], [place] [address] June, [facility] [address] [id number] [address] [place] [address], [place] [address] June, [facility] [address] [id number] [address] [place] [address], [place] [address] June, [facility] [address] [id number] [address] [place] [address], [place] [address] June, [facility] [address] [id number] [address] [place] [address], [place] [address] June, [facility] [address] [id number] [address] [place] [address], [place] [address] June, [facility] [address] [id number] [address] [place] [address], [place] [address] June, [facility] [address] [id number] [address] [place] [address], [place] [address] June, [facility] [address] [id number] [address] [place] [address], [place] [address] June, [facility] [address] [id number] [address] [place] [address], [place] [address] June, [facility] [address] [id number] [address] [place] [address], [place] [address] June, [facility] [address] [id number] [address] [place] [address], [place] [address] June, [facility] [address] [id number] [address] [place] [address], [place] [address] June, [facility] [address] [id number] [address] [place] [address], [place] [address] May, [facility] [address] [id number] [address] [place] [address], [place] [address] May, [facility] [address] [id number] [address] [place] [address], [place] [address] May, [facility] [address] [id number] [address] [place] [address] 16 May, 2013 [facility] [address] [id number] [address] [place] [address], [place] [address] 31 Apr, 2013 [facility] [address] [id number] [address] [place] [address], [place] [address] 31 Apr, 2013 [facility] [address] [id number] [address] [place] [address], [place] [address] 18 Apr, 2013 [facility] [address] [id number] [address] [place] [address], [place] [address] 18 Apr, 2013 [facility] [address] [id number] [address] [place] [address], [place] [address] 14 Apr, 2013 [facility] [address] [id number] [address] [place] [address], [place] [address] 14 Apr, 2013 [facility] [address] [id number] [address] [place] [address], [place] [address] 25 Mar, 2013 [facility] [address] [id number] [address] [place] [address], [place] [address] Mar, [facility] [address] [id number] [address] [place] [address], [place] [address] Mar, [facility] [address] [id number] [address] [place] [address], [place] [address] 18 Mar, 2013 [facility] [address] [id number] [address] [place] [address], [place] [address] Mar, [facility] [address] [id number] [address] [place] [address], [place] [address] Feb, [facility] [address] [id number] [address] [place] [address], [place] [address] Feb, [facility] [address] [id number] [address] [place] [address], [place] [address] Feb, [facility] [address] [id number] [address] [place] [address], [place] [address] Feb, [facility] [address] [id number] [address] [place] [address], [place] [address] Feb, [facility] [address] [id number] [address] [place] [address], [place] [address] Feb, [facility] [address] [id number] [address] [place] [address], [place] [address] Jan, [facility] [address] [id number] [address] [place] [address], [place] [address] Jan, [facility] [address] [id number] [address] [place] [address], [place] [address] Jan, [facility] [address] [id number] [address] [place] [address], [place] [address] Jan, [facility] [address] [id number] [address] [place] [address], [place] [address] Dec, [facility] [address] [id number] [address] [place] [address], [place] [address] Dec, [facility] [address] [id number] [address] [place] [address], [place] [address] Dec, [facility] [address] [id number] [address] [place] [address], [place] [address] Dec, [facility] [address] [id number] [address] [place] [address], [place] [address] Dec, [facility] [address] [id number] [address] [place] [address], [place] [address] Dec, [facility] [address] [id number] [address] [place] [address], [place] [address] Nov, [facility] [address] [id number] [address] [place] [address], [place] [address] Nov, [facility] [address] [id number] [address] [place] [address], [place] [address] Nov, [facility] [address] [id number] [address] [place] [address], [place] [address] Nov, [facility] [address] [id number] [address] [place] [address] Nov, [facility] [address] [id number] [address] [place] [address] Nov, [facility] [address] [id number] [address] [place] [address] Oct, [facility] [address] [id number] [address] [place] [address] Oct, [facility] [address] [id number] [address] [place] [address] Sep, [facility] [address] [id number] [address] [place] [address] Sep, [facility] [address] [id number] [address] [place] [address] Sep, [facility] [address] [id number] [address] [place] [address] Sep, [facility] [address] [id number] [address] [place] [address] Aug, IMMUNIZATIONS No Known Immunizations SOCIAL HISTORY [...]
--- OUTSIDE RECORDS SUMMARY | 2019-05-20 06:58 | XMS REPORT ---
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 67692914 Problem Edema 782.3 Active 555363978 Problem Pain in joint, shoulder region 719.41 Active 770187721 Problem Lumbago 724.2 Active 024210633 Problem Anxiety state, unspecified 300.00 Act ahmet [id number] ALLERGIES No Information ENCOUNTERS Encounter Location Date Diagnosis [facility] [address] [id number] [address] [place] [address] June, [facility] [address] [facility] [id number] [address] [place] [address] June, [facility] [address] [facility] [id number] [address] [place] [address] 29 May, 2014 [facility] [address] [facility] [id number] [address] [place] [address] 28 May, 2014 Obesity 278.00 and Lumbago 7 24.2 [facility] [address] [facility] [id number] [address] [place] [address] 14 May, 2014 [facility] [address] [facility] [id number] [address] [place] [address] 13 May, 2014 [facility] [address] [id number] [address] [place] [id number] 18 Apr, 2014 [facility] [address] [id number] [address] [place] [address], [place] [address] 18 Apr, 2014 [facility] [address] [id number] [address] [place] [address], [place] [address] 18 Apr, 2014 [facility] [address] [id number] [address] [place] [address] 18 Apr, 2014 [facility] [address] [id number] [address] [place] [id number] 11 Apr, 2014 [facility] [address] [id number] [address] [place] [address], [place] [address] Apr, [facility] [address] [id number] [address] [place] [address] Mar, [facility] [address] [id number] [address] [place] [address] Mar, [facility] [address] [id number] [address] [place] [address] Mar, [facility] [address] [id number] [address] [place] [address], [place] [address] Mar, [facility] [address] [id number] [address] [place] [address] 16 Mar, 2014 [facility] [address] [id number] [address] [place] [address] Mar, [facility] [address] [id number] [address] [place] [address] Feb, [facility] [address] [id number] [address] [place] [address] Feb, [facility] [address] [id number] [address] [place] [address] Feb, [facility] [address] [id number] [address] [place] [address] Feb, [facility] [address] [id number] [address] [place] [address], [place] [address] Feb, [facility] [address] [id number] [address] [place] [address], [place] [address] Feb, [facility] [address] [id number] [address] [place] [address], [place] [address] Jan, [facility] [address] [id number] [address] [place] [address], [place] [address] Jan, [facility] [address] [id number] [address] [place] [address], [place] [address] Jan, [facility] [address] [id number] [address] [place] [address], [place] [address] Jan, [facility] [address] [id number] [address] [place] [address], [place] [address] Jan, [facility] [address] [id number] [address] [place] [address], [place] [address] Jan, [facility] [address] [id number] [address] [place] [address], [place] [address] Jan, [facility] [address] [id number] [address] [place] [address], [place] [address] Jan, [facility] [address] [id number] [address] [place] [address], [place] [address] Jan, [facility] [address] [id number] [address] [place] [address], [place] [address] Jan, [facility] [address] [id number] [address] [place] [address], [place] [address] Jan, [facility] [address] [id number] [address] [place] [address], [place] [address] Dec, [facility] [address] [id number] [address] [place] [address], [place] [address] Dec, [facility] [address] [id number] [address] [place] [address], [place] [address] Dec, [facility] [address] [id number] [address] [place] [address], [place] [address] Dec, [facility] [address] [id number] [address] [place] [address], [place] [address] Dec, [facility] [address] [id number] [address] [place] [address], [place] [address] Dec, [facility] [address] [id number] [address] [place] [address], [place] [address] Nov, [facility] [address] [id number] [address] [place] [address], [place] [address] Nov, [facility] [address] [id number] [address] [place] [address], [place] [address] Nov, [facility] [address] [id number] [address] [place] [address], [place] [address] Nov, [facility] [address] [id number] [address] [place] [address], [place] [address] Nov, [facility] [address] [id number] [address] [place] [address], [place] [address] Nov, [facility] [address] [id number] [address] [place] [address] Oct, [facility] [address] [id number] [address] [place] [address] Oct, 2013 [facility] [address] [id number] [address] [place] [address] Oct, 2013 [facility] [address] [id number] [address] [place] [address], [place] [address] Oct, 2013 [facility] [address] [id number] [address] [place] [address], [place] [address] Oct, 2013 [facility] [address] [id number] [address] [place] [address], [place] [address] Oct, 2013 [facility] [address] [id number] [address] [place] [address], [place] [address] Sep, [facility] [address] [id number] [address] [place] [address], [place] [address] Sep, [facility] [address] [id number] [address] [place] [address], [place] [address] Sep, [facility] [address] [id number] [address] [place] [address], [place] [address] Sep, [facility] [address] [id number] [address] [place] [address], [place] [address] Aug, [facility] [address] [id number] [address] [place] [address], [place] [address] Aug, [facility] [address] [id number] [address] [place] [address], [place] [address] Jul, [facility] [address] [id number] [address] [place] [address], [place] [address] Jul, [facility] [address] [id number] [address] [place] [address], [place] [address] Jul, [facility] [address] [id number] [address] [place] [address], [place] [address] Jul, [facility] [address] [id number] [address] [place] [address], [place] [address] Jul, [facility] [address] [id number] [address] [place] [address], [place] [address] Jul, [facility] [address] [id number] [address] [place] [address], [place] [address] June, [facility] [address] [id number] [address] [place] [address], [place] [address] June, [facility] [address] [id number] [address] [place] [address], [place] [address] June, [facility] [address] [id number] [address] [place] [address], [place] [address] June, [facility] [address] [id number] [address] [place] [address], [place] [address] June, [facility] [address] [id number] [address] [place] [address], [place] [address] June, [facility] [address] [id number] [address] [place] [address], [place] [address] June, [facility] [address] [id number] [address] [place] [address], [place] [address] June, [facility] [address] [id number] [address] [place] [address], [place] [address] June, [facility] [address] [id number] [address] [place] [address], [place] [address] June, [facility] [address] [id number] [address] [place] [address], [place] [address] June, [facility] [address] [id number] [address] [place] [address], [place] [address] June, [facility] [address] [id number] [address] [place] [address], [place] [address] June, [facility] [address] [id number] [address] [place] [address], [place] [address] June, [facility] [address] [id number] [address] [place] [address], [place] [address] June, [facility] [address] [id number] [address] [place] [address], [place] [address] June, [facility] [address] [id number] [address] [place] [address], [place] [address] May, [facility] [address] [id number] [address] [place] [address], [place] [address] May, [facility] [address] [id number] [address] [place] [address], [place] [address] May, [facility] [address] [id number] [address] [place] [address] 16 May, 2013 [facility] [address] [id number] [address] [place] [address], [place] [address] 31 Apr, 2013 [facility] [address] [id number] [address] [place] [address], [place] [address] 31 Apr, 2013 [facility] [address] [id number] [address] [place] [address], [place] [address] 18 Apr, 2013 [facility] [address] [id number] [address] [place] [address], [place] [address] 18 Apr, 2013 [facility] [address] [id number] [address] [place] [address], [place] [address] 14 Apr, 2013 [facility] [address] [id number] [address] [place] [address], [place] [address] 14 Apr, 2013 [facility] [address] [id number] [address] [place] [address], [place] [address] 25 Mar, 2013 [facility] [address] [id number] [address] [place] [address], [place] [address] Mar, [facility] [address] [id number] [address] [place] [address], [place] [address] Mar, [facility] [address] [id number] [address] [place] [address], [place] [address] 18 Mar, 2013 [facility] [address] [id number] [address] [place] [address], [place] [address] Mar, [facility] [address] [id number] [address] [place] [address], [place] [address] Feb, [facility] [address] [id number] [address] [place] [address], [place] [address] Feb, [facility] [address] [id number] [address] [place] [address], [place] [address] Feb, [facility] [address] [id number] [address] [place] [address], [place] [address] Feb, [facility] [address] [id number] [address] [place] [address], [place] [address] Feb, [facility] [address] [id number] [address] [place] [address], [place] [address] Feb, [facility] [address] [id number] [address] [place] [address], [place] [address] Jan, [facility] [address] [id number] [address] [place] [address], [place] [address] Jan, [facility] [address] [id number] [address] [place] [address], [place] [address] Jan, [facility] [address] [id number] [address] [place] [address], [place] [address] Jan, [facility] [address] [id number] [address] [place] [address], [place] [address] Dec, [facility] [address] [id number] [address] [place] [address], [place] [address] Dec, [facility] [address] [id number] [address] [place] [address], [place] [address] Dec, [facility] [address] [id number] [address] [place] [address], [place] [address] Dec, [facility] [address] [id number] [address] [place] [address], [place] [address] Dec, [facility] [address] [id number] [address] [place] [address], [place] [address] Dec, [facility] [address] [id number] [address] [place] [address], [place] [address] Nov, [facility] [address] [id number] [address] [place] [address], [place] [address] Nov, [facility] [address] [id number] [address] [place] [address], [place] [address] Nov, [facility] [address] [id number] [address] [place] [address], [place] [address] Nov, [facility] [address] [id number] [address] [place] [address] Nov, [facility] [address] [id number] [address] [place] [address] Nov, [facility] [address] [id number] [address] [place] [address] Oct, [facility] [address] [id number] [address] [place] [address] Oct, [facility] [address] [id number] [address] [place] [address] Sep, [facility] [address] [id number] [address] [place] [address] Sep, [facility] [address] [id number] [address] [place] [address] Sep, [facility] [address] [id number] [address] [place] [address] Sep, [facility] [address] [id number] [address] [place] [address] Aug, IMMUNIZATIONS No Known Immunizations SOCIAL HISTORY [...]
--- OUTSIDE RECORDS SUMMARY | 2019-05-20 06:58 | XMS REPORT ---
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 60088125 Problem Edema 782.3 Active 947593400 Problem Pain in joint, shoulder region 719.41 Active 930507557 Problem Lumbago 724.2 Active 025648091 Problem Anxiety state, unspecified 300.00 Act ahmet [id number] ALLERGIES No Information ENCOUNTERS Encounter Location Date Diagnosis [facility] [address] [facility] [id number] [address] [place] [address] June, [facility] [address] [facility] [id number] [address] [place] [address] June, [facility] [address] [facility] [id number] [address] [place] [phone] 29 May, 2014 [facility] [address] [facility] [id number] [address] [place] [phone] 28 May, 2014 Obesity 278.00 and Lumbago 7 24.2 [facility] [address] [facility] [id number] [address] [place] [address] May, [facility] [address] [facility] [id number] [address] [place] [address] May, [facility] [address] [facility] [id number] [address] [place] [phone] Apr, [facility] [address] [facility] [id number] [address] [place] [phone] 18 Apr, 2014 [facility] [address] [id number] [address] [place] [address], [place] [address] 18 Apr, 2014 [facility] [address] [id number] [address] [place] [address], [place] [address] 18 Apr, 2014 [facility] [address] [id number] [address] [place] [address], [place] [address] Apr, [facility] [address] [id number] [address] [place] [address], [place] [address] Apr, [facility] [address] [id number] [address] [place] [address], [place] [address] Mar, [facility] [address] [id number] [address] [place] [address], [place] [address] Mar, [facility] [address] [id number] [address] [place] [address], [place] [address] Mar, [facility] [address] [id number] [address] [place] [address], [place] [address] Mar, [facility] [address] [id number] [address] [place] [address], [place] [address] Mar, [facility] [address] [id number] [address] [place] [address], [place] [address] Mar, [facility] [address] [id number] [address] [place] [address], [place] [address] Feb, [facility] [address] [id number] [address] [place] [address], [place] [address] Feb, [facility] [address] [id number] [address] [place] [address], [place] [address] Feb, [facility] [address] [id number] [address] [place] [address], [place] [address] Feb, [facility] [address] [id number] [address] [place] [address], [place] [address] Feb, [facility] [address] [id number] [address] [place] [address], [place] [address] Feb, [facility] [address] [id number] [address] [place] [address], [place] [address] Jan, [facility] [address] [id number] [address] [place] [address], [place] [address] Jan, [facility] [address] [id number] [address] [place] [address], [place] [address] Jan, [facility] [address] [id number] [address] [place] [address], [place] [address] Jan, [facility] [address] [id number] [address] [place] [address], [place] [address] Jan, [facility] [address] [id number] [address] [place] [address], [place] [address] Jan, [facility] [address] [id number] [address] [place] [address], [place] [address] Jan, [facility] [address] [id number] [address] [place] [address], [place] [address] Jan, [facility] [address] [id number] [address] [place] [address], [place] [address] Jan, [facility] [address] [id number] [address] [place] [address], [place] [address] Jan, [facility] [address] [id number] [address] [place] [address], [place] [address] Jan, [facility] [address] [id number] [address] [place] [address], [place] [address] Dec, [facility] [address] [id number] [address] [place] [address], [place] [address] Dec, [facility] [address] [id number] [address] [place] [address], [place] [address] Dec, [facility] [address] [id number] [address] [place] [address], [place] [address] Dec, [facility] [address] [id number] [address] [place] [address], [place] [address] Dec, [facility] [address] [id number] [address] [place] [address], [place] [address] Dec, [facility] [address] [id number] [address] [place] [address], [place] [address] Nov, [facility] [address] [id number] [address] [place] [address], [place] [address] Nov, [facility] [address] [id number] [address] [place] [address], [place] [address] Nov, [facility] [address] [id number] [address] [place] [address], [place] [address] Nov, [facility] [address] [id number] [address] [place] [address], [place] [address] Nov, [facility] [address] [id number] [address] [place] [address], [place] [address] Nov, [facility] [address] [id number] [address] [place] [address], [place] [address] Oct, [facility] [address] [id number] [address] [place] [address], [place] [address] Oct, [facility] [address] [id number] [address] [place] [address], [place] [address] Oct, [facility] [address] [id number] [address] [place] [address] Oct, [facility] [address] [id number] [address] [place] [address], [place] [address] Oct, [facility] [address] [id number] [address] [place] [address], [place] [address] Oct, [facility] [address] [id number] [address] [place] [address], [place] [address] Sep, [facility] [address] [id number] [address] [place] [address], [place] [address] Sep, [facility] [address] [id number] [address] [place] [address], [place] [address] Sep, [facility] [address] [id number] [address] [place] [address], [place] [address] Sep, [facility] [address] [id number] [address] [place] [address], [place] [address] Aug, [facility] [address] [id number] [address] [place] [address], [place] [address] Aug, [facility] [address] [id number] [address] [place] [address], [place] [address] Jul, [facility] [address] [id number] [address] [place] [address], [place] [address] Jul, [facility] [address] [id number] [address] [place] [address], [place] [address] Jul, [facility] [address] [id number] [address] [place] [address], [place] [address] Jul, [facility] [address] [id number] [address] [place] [address], [place] [address] Jul, [facility] [address] [id number] [address] [place] [address], [place] [address] Jul, [facility] [address] [id number] [address] [place] [address], [place] [address] June, [facility] [address] [id number] [address] [place] [address], [place] [address] June, [facility] [address] [id number] [address] [place] [address], [place] [address] June, [facility] [address] [id number] [address] [place] [address], [place] [address] June, [facility] [address] [id number] [address] [place] [address], [place] [address] June, [facility] [address] [id number] [address] [place] [address] June, [facility] [address] [id number] [address] [place] [address], [place] [address] June, [facility] [address] [id number] [address] [place] [address], [place] [address] June, [facility] [address] [id number] [address] [place] [address], [place] [address] June, [facility] [address] [id number] [address] [place] [address], [place] [address] June, [facility] [address] [id number] [address] [place] [address], [place] [address] June, [facility] [address] [id number] [address] [place] [address], [place] [address] June, [facility] [address] [id number] [address] [place] [address], [place] [address] June, [facility] [address] [id number] [address] [place] [address], [place] [address] June, [facility] [address] [id number] [address] [place] [address], [place] [address] June, [facility] [address] [id number] [address] [place] [address], [place] [address] June, [facility] [address] [id number] [address] [place] [address], [place] [address] May, [facility] [address] [id number] [address] [place] [address], [place] [address] May, [facility] [address] [id number] [address] [place] [address], [place] [address] May, [facility] [address] [id number] [address] [place] [address], [place] [address] May, [facility] [address] [id number] [address] [place] [address], [place] [address] 31 Apr, 2013 [facility] [address] [id number] [address] [place] [address], [place] [address] 31 Apr, 2013 [facility] [address] [id number] [address] [place] [address], [place] [address] 18 Apr, 2013 [facility] [address] [id number] [address] [place] [address], [place] [address] 18 Apr, 2013 [facility] [address] [id number] [address] [place] [address], [place] [address] 14 Apr, 2013 [facility] [address] [id number] [address] [place] [address], [place] [address] 14 Apr, 2013 [facility] [address] [id number] [address] [place] [address], [place] [address] 25 Mar, 2013 [facility] [address] [id number] [address] [place] [address], [place] [address] Mar, [facility] [address] [id number] [address] [place] [address], [place] [address] Mar, [facility] [address] [id number] [address] [place] [address], [place] [address] 18 Mar, 2013 [facility] [address] [id number] [address] [place] [address], [place] [address] 18 Mar, 2013 [facility] [address] [id number] [address] [place] [address], [place] [address] Feb, [facility] [address] [id number] [address] [place] [address], [place] [address] Feb, [facility] [address] [id number] [address] [place] [address], [place] [address] Feb, [facility] [address] [id number] [address] [place] [address], [place] [address] Feb, [facility] [address] [id number] [address] [place] [address], [place] [address] Feb, [facility] [address] [id number] [address] [place] [address], [place] [address] Feb, [facility] [address] [id number] [address] [place] [address], [place] [address] Jan, [facility] [address] [id number] [address] [place] [address], [place] [address] Jan, [facility] [address] [id number] [address] [place] [address], [place] [address] Jan, [facility] [address] [id number] [address] [place] [address], [place] [address] Jan, [facility] [address] [id number] [address] [place] [address], [place] [address] Dec, [facility] [address] [id number] [address] [place] [address], [place] [address] Dec, [facility] [address] [id number] [address] [place] [address], [place] [address] Dec, [facility] [address] [id number] [address] [place] [address], [place] [address] Dec, [facility] [address] [id number] [address] [place] [address], [place] [address] Dec, [facility] [address] [id number] [address] [place] [address], [place] [address] Dec, [facility] [address] [id number] [address] [place] [address], [place] [address] Nov, [facility] [address] [id number] [address] [place] [address], [place] [address] Nov, [facility] [address] [id number] [address] [place] [address], [place] [address] Nov, [facility] [address] [id number] [address] [place] [address], [place] [address] Nov, [facility] [address] [id number] [address] [place] [address] [address] Nov, [facility] [address] [id number] [address] [place] [address] Nov, [facility] [address] [id number] [address] [place] [address] Oct, [facility] [address] [id number] [address] [place] [address] Oct, [facility] [address] [id number] [address] [place] [address] Sep, [facility] [address] [id number] [address] [place] [address] Sep, [facility] [address] [id number] [address] [place] [address] Sep, [facility] [address] [id number] [address] [place] [address] Sep, [facility] [address] [id number] [address] [place] [address] Aug, IMMUNIZATIONS No Known Immunizations SOCIAL HISTORY Never Assessed REASON FOR VISIT [place] [place] VITAL SIGNS MEDICATIONS Unknown Medications RESULTS No Results PROCEDURES No Known procedures INSTRUCTIONS MEDICATIONS ADMINISTERED No Known Medications MEDICAL (GENERAL) HISTORY Type Description Date Medical History obesity Medical History arthritis back Medical History RLS Medical History migraines Surgical History cholecystectomy 2006 Surgical History orthopedic surgery- bulging disks at L4/L5 since 2008,bilat hip replacement, bilat knee replacement
--- OUTSIDE RECORDS SUMMARY | 2019-05-20 06:58 | XMS REPORT ---
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 68022087 Problem Edema 782.3 Active 653588473 Problem Pain in joint, shoulder region 719.41 Active 276972651 Problem Lumbago 724.2 Active 411156587 Problem Anxiety state, unspecified 300.00 Act ahmet [id number] ALLERGIES No Information ENCOUNTERS Encounter Location Date Diagnosis [facility] [address] [id number] [address] [place] [address] June, [facility] [address] [id number] [address] [place] [address] June, [facility] [address] [id number] [address] [place] [address] 29 May, 2014 [facility] [address] [id number] [address] [place] [address] 28 May, 2014 Obesity 278.00 and Lumbago 7 24.2 [facility] [address] [id number] [address] [place] [address] 14 May, 2014 [facility] [address] [id number] [address] [place] [address] 13 May, 2014 [facility] [address] [id number] [address] [place] [address] 18 Apr, 2014 [facility] [address] [id number] [address] [place] [address], [place] [address] 18 Apr, 2014 [facility] [address] [id number] [address] [place] [address], [place] [address] 18 Apr, 2014 [facility] [address] [id number] [address] [place] [address] 18 Apr, 2014 [facility] [address] [id number] [address] [place] [address] 11 Apr, 2014 [facility] [address] [id number] [address] [place] [address], [place] [address] Apr, [facility] [address] [id number] [address] [place] [address] Mar, [facility] [address] [id number] [address] [place] [address] Mar, [facility] [address] [id number] [address] [place] [address] Mar, [facility] [address] [id number] [address] [place] [address], [place] [address] Mar, [facility] [address] [id number] [address] [place] [address] 16 Mar, 2014 [facility] [address] [id number] [address] [place] [address] Mar, [facility] [address] [id number] [address] [place] [address] Feb, [facility] [address] [id number] [address] [place] [address] Feb, [facility] [address] [id number] [address] [place] [address] Feb, [facility] [address] [id number] [address] [place] [address] Feb, [facility] [address] [id number] [address] [place] [address], [place] [address] Feb, [facility] [address] [id number] [address] [place] [address], [place] [address] Feb, [facility] [address] [id number] [address] [place] [address], [place] [address] Jan, [facility] [address] [id number] [address] [place] [address], [place] [address] Jan, [facility] [address] [id number] [address] [place] [address], [place] [address] Jan, [facility] [address] [id number] [address] [place] [address], [place] [address] Jan, [facility] [address] [id number] [address] [place] [address], [place] [address] Jan, [facility] [address] [id number] [address] [place] [address], [place] [address] Jan, [facility] [address] [id number] [address] [place] [address], [place] [address] Jan, [facility] [address] [id number] [address] [place] [address], [place] [address] Jan, [facility] [address] [id number] [address] [place] [address], [place] [address] Jan, [facility] [address] [id number] [address] [place] [address], [place] [address] Jan, [facility] [address] [id number] [address] [place] [address], [place] [address] Jan, [facility] [address] [id number] [address] [place] [address], [place] [address] Dec, [facility] [address] [id number] [address] [place] [address], [place] [address] Dec, [facility] [address] [id number] [address] [place] [address], [place] [address] Dec, [facility] [address] [id number] [address] [place] [address], [place] [address] Dec, [facility] [address] [id number] [address] [place] [address], [place] [address] Dec, [facility] [address] [id number] [address] [place] [address], [place] [address] Dec, [facility] [address] [id number] [address] [place] [address], [place] [address] Nov, [facility] [address] [id number] [address] [place] [address], [place] [address] Nov, [facility] [address] [id number] [address] [place] [address], [place] [address] Nov, [facility] [address] [id number] [address] [place] [address], [place] [address] Nov, [facility] [address] [id number] [address] [place] [address], [place] [address] Nov, [facility] [address] [id number] [address] [place] [address], [place] [address] Nov, [facility] [address] [id number] [address] [place] [address] Oct, [facility] [address] [id number] [address] [place] [address] Oct, 2013 [facility] [address] [id number] [address] [place] [address] Oct, 2013 [facility] [address] [id number] [address] [place] [address], [place] [address] Oct, 2013 [facility] [address] [id number] [address] [place] [address], [place] [address] Oct, 2013 [facility] [address] [id number] [address] [place] [address], [place] [address] Oct, 2013 [facility] [address] [id number] [address] [place] [address], [place] [address] Sep, [facility] [address] [id number] [address] [place] [address], [place] [address] Sep, [facility] [address] [id number] [address] [place] [address], [place] [address] Sep, [facility] [address] [id number] [address] [place] [address], [place] [address] Sep, [facility] [address] [id number] [address] [place] [address], [place] [address] Aug, [facility] [address] [id number] [address] [place] [address], [place] [address] Aug, [facility] [address] [id number] [address] [place] [address], [place] [address] Jul, [facility] [address] [id number] [address] [place] [address], [place] [address] Jul, [facility] [address] [id number] [address] [place] [address], [place] [address] Jul, [facility] [address] [id number] [address] [place] [address], [place] [address] Jul, [facility] [address] [id number] [address] [place] [address], [place] [address] Jul, [facility] [address] [id number] [address] [place] [address], [place] [address] Jul, [facility] [address] [id number] [address] [place] [address], [place] [address] June, [facility] [address] [id number] [address] [place] [address], [place] [address] June, [facility] [address] [id number] [address] [place] [address], [place] [address] June, [facility] [address] [id number] [address] [place] [address], [place] [address] June, [facility] [address] [id number] [address] [place] [address], [place] [address] June, [facility] [address] [id number] [address] [place] [address], [place] [address] June, [facility] [address] [id number] [address] [place] [address], [place] [address] June, [facility] [address] [id number] [address] [place] [address], [place] [address] June, [facility] [address] [id number] [address] [place] [address], [place] [address] June, [facility] [address] [id number] [address] [place] [address], [place] [address] June, [facility] [address] [id number] [address] [place] [address], [place] [address] June, [facility] [address] [id number] [address] [place] [address], [place] [address] June, [facility] [address] [id number] [address] [place] [address], [place] [address] June, [facility] [address] [id number] [address] [place] [address], [place] [address] June, [facility] [address] [id number] [address] [place] [address], [place] [address] June, [facility] [address] [id number] [address] [place] [address], [place] [address] June, [facility] [address] [id number] [address] [place] [address], [place] [address] May, [facility] [address] [id number] [address] [place] [address], [place] [address] May, [facility] [address] [id number] [address] [place] [address], [place] [address] May, [facility] [address] [id number] [address] [place] [address] 16 May, 2013 [facility] [address] [id number] [address] [place] [address], [place] [address] 31 Apr, 2013 [facility] [address] [id number] [address] [place] [address], [place] [address] 31 Apr, 2013 [facility] [address] [id number] [address] [place] [address], [place] [address] 18 Apr, 2013 [facility] [address] [id number] [address] [place] [address], [place] [address] 18 Apr, 2013 [facility] [address] [id number] [address] [place] [address], [place] [address] 14 Apr, 2013 [facility] [address] [id number] [address] [place] [address], [place] [address] 14 Apr, 2013 [facility] [address] [id number] [address] [place] [address], [place] [address] 25 Mar, 2013 [facility] [address] [id number] [address] [place] [address], [place] [address] Mar, [facility] [address] [id number] [address] [place] [address], [place] [address] Mar, [facility] [address] [id number] [address] [place] [address], [place] [address] 18 Mar, 2013 [facility] [address] [id number] [address] [place] [address], [place] [address] Mar, [facility] [address] [id number] [address] [place] [address], [place] [address] Feb, [facility] [address] [id number] [address] [place] [address], [place] [address] Feb, [facility] [address] [id number] [address] [place] [address], [place] [address] Feb, [facility] [address] [id number] [address] [place] [address], [place] [address] Feb, [facility] [address] [id number] [address] [place] [address], [place] [address] Feb, [facility] [address] [id number] [address] [place] [address], [place] [address] Feb, [facility] [address] [id number] [address] [place] [address], [place] [address] Jan, [facility] [address] [id number] [address] [place] [address], [place] [address] Jan, [facility] [address] [id number] [address] [place] [address], [place] [address] Jan, [facility] [address] [id number] [address] [place] [address], [place] [address] Jan, [facility] [address] [id number] [address] [place] [address], [place] [address] Dec, [facility] [address] [id number] [address] [place] [address], [place] [address] Dec, [facility] [address] [id number] [address] [place] [address], [place] [address] Dec, [facility] [address] [id number] [address] [place] [address], [place] [address] Dec, [facility] [address] [id number] [address] [place] [address], [place] [address] Dec, [facility] [address] [id number] [address] [place] [address], [place] [address] Dec, [facility] [address] [id number] [address] [place] [address], [place] [address] Nov, [facility] [address] [id number] [address] [place] [address], [place] [address] Nov, [facility] [address] [id number] [address] [place] [address], [place] [address] Nov, [facility] [address] [id number] [address] [place] [address], [place] [address] Nov, [facility] [address] [id number] [address] [place] [address] Nov, [facility] [address] [id number] [address] [place] [address] Nov, [facility] [address] [id number] [address] [place] [address] Oct, [facility] [address] [id number] [address] [place] [address] Oct, [facility] [address] [id number] [address] [place] [address] Sep, [facility] [address] [id number] [address] [place] [address] Sep, [facility] [address] [id number] [address] [place] [address] Sep, [facility] [address] [id number] [address] [place] [address] Sep, [facility] [address] [id number] [address] [place] [address] Aug, IMMUNIZATIONS No Known Immunizations SOCIAL HISTORY [...]
--- OUTSIDE RECORDS SUMMARY | 2019-05-20 06:58 | XMS REPORT ---
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 77110599 Problem Edema 782.3 Active 157398544 Problem Pain in joint, shoulder region 719.41 Active 688822658 Problem Lumbago 724.2 Active 373428770 Problem Anxiety state, unspecified 300.00 Act ahmet [id number] ALLERGIES No Information ENCOUNTERS Encounter Location Date Diagnosis [facility] [address] [facility] [id number] [address] [place] [address] June, [facility] [address] [facility] [id number] [address] [place] [id number] June, [facility] [address] [facility] [id number] [address] [place] [id number] 29 May, 2014 [facility] [address] [facility] [id number] [address] [place] [id number] 28 May, 2014 Obesity 278.00 and Lumbago 7 24.2 [facility] [address] [facility] [id number] [address] [place] [address] May, [facility] [address] [facility] [id number] [address] [place] [address] May, [facility] [address] [facility] [id number] [address] [place] [address] Apr, [facility] [address] [facility] [id number] [address] [place] [id number] 18 Apr, 2014 [facility] [address] [id number] [address] [place] [address], [place] [address] 18 Apr, 2014 [facility] [address] [id number] [address] [place] [address], [place] [address] 18 Apr, 2014 [facility] [address] [id number] [address] [place] [address], [place] [address] Apr, [facility] [address] [id number] [address] [place] [address], [place] [address] Apr, [facility] [address] [id number] [address] [place] [address], [place] [address] Mar, [facility] [address] [id number] [address] [place] [address], [place] [address] Mar, [facility] [address] [id number] [address] [place] [address], [place] [address] Mar, [facility] [address] [id number] [address] [place] [address], [place] [address] Mar, [facility] [address] [id number] [address] [place] [address], [place] [address] Mar, [facility] [address] [id number] [address] [place] [address], [place] [address] Mar, [facility] [address] [id number] [address] [place] [address], [place] [address] Feb, [facility] [address] [id number] [address] [place] [address], [place] [address] Feb, [facility] [address] [id number] [address] [place] [address], [place] [address] Feb, [facility] [address] [id number] [address] [place] [address], [place] [address] Feb, [facility] [address] [id number] [address] [place] [address], [place] [address] Feb, [facility] [address] [id number] [address] [place] [address], [place] [address] Feb, [facility] [address] [id number] [address] [place] [address], [place] [address] Jan, [facility] [address] [id number] [address] [place] [address], [place] [address] Jan, [facility] [address] [id number] [address] [place] [address], [place] [address] Jan, [facility] [address] [id number] [address] [place] [address], [place] [address] Jan, [facility] [address] [id number] [address] [place] [address], [place] [address] Jan, [facility] [address] [id number] [address] [place] [address], [place] [address] Jan, [facility] [address] [id number] [address] [place] [address], [place] [address] Jan, [facility] [address] [id number] [address] [place] [address], [place] [address] Jan, [facility] [address] [id number] [address] [place] [address], [place] [address] Jan, [facility] [address] [id number] [address] [place] [address], [place] [address] Jan, [facility] [address] [id number] [address] [place] [address], [place] [address] Jan, [facility] [address] [id number] [address] [place] [address], [place] [address] Dec, [facility] [address] [id number] [address] [place] [address], [place] [address] Dec, [facility] [address] [id number] [address] [place] [address], [place] [address] Dec, [facility] [address] [id number] [address] [place] [address], [place] [address] Dec, [facility] [address] [id number] [address] [place] [address], [place] [address] Dec, [facility] [address] [id number] [address] [place] [address], [place] [address] Dec, [facility] [address] [id number] [address] [place] [address], [place] [address] Nov, [facility] [address] [id number] [address] [place] [address], [place] [address] Nov, [facility] [address] [id number] [address] [place] [address], [place] [address] Nov, [facility] [address] [id number] [address] [place] [address], [place] [address] Nov, [facility] [address] [id number] [address] [place] [address], [place] [address] Nov, [facility] [address] [id number] [address] [place] [address], [place] [address] Nov, [facility] [address] [id number] [address] [place] [address], [place] [address] Oct, [facility] [address] [id number] [address] [place] [address], [place] [address] Oct, [facility] [address] [id number] [address] [place] [address], [place] [address] Oct, [facility] [address] [id number] [address] [place] [address] Oct, [facility] [address] [id number] [address] [place] [address], [place] [address] Oct, [facility] [address] [id number] [address] [place] [address], [place] [address] Oct, [facility] [address] [id number] [address] [place] [address], [place] [address] Sep, [facility] [address] [id number] [address] [place] [address], [place] [address] Sep, [facility] [address] [id number] [address] [place] [address], [place] [address] Sep, [facility] [address] [id number] [address] [place] [address], [place] [address] Sep, [facility] [address] [id number] [address] [place] [address], [place] [address] Aug, [facility] [address] [id number] [address] [place] [address], [place] [address] Aug, [facility] [address] [id number] [address] [place] [address], [place] [address] Jul, [facility] [address] [id number] [address] [place] [address], [place] [address] Jul, [facility] [address] [id number] [address] [place] [address], [place] [address] Jul, [facility] [address] [id number] [address] [place] [address], [place] [address] Jul, [facility] [address] [id number] [address] [place] [address], [place] [address] Jul, [facility] [address] [id number] [address] [place] [address], [place] [address] Jul, [facility] [address] [id number] [address] [place] [address], [place] [address] June, [facility] [address] [id number] [address] [place] [address], [place] [address] June, [facility] [address] [id number] [address] [place] [address], [place] [address] June, [facility] [address] [id number] [address] [place] [address], [place] [address] June, [facility] [address] [id number] [address] [place] [address], [place] [address] June, [facility] [address] [id number] [facility] [place] [address] June, [facility] [address] [id number] [address] [place] [address], [place] [address] June, [facility] [address] [id number] [address] [place] [address], [place] [address] June, [facility] [address] [id number] [address] [place] [address], [place] [address] June, [facility] [address] [id number] [address] [place] [address], [place] [address] June, [facility] [address] [id number] [address] [place] [address], [place] [address] June, [facility] [address] [id number] [address] [place] [address], [place] [address] June, [facility] [address] [id number] [address] [place] [address], [place] [address] June, [facility] [address] [id number] [address] [place] [address], [place] [address] June, [facility] [address] [id number] [address] [place] [address], [place] [address] June, [facility] [address] [id number] [address] [place] [address], [place] [address] June, [facility] [address] [id number] [address] [place] [address], [place] [address] May, [facility] [address] [id number] [address] [place] [address], [place] [address] May, [facility] [address] [id number] [address] [place] [address], [place] [address] May, [facility] [address] [id number] [address] [place] [address], [place] [address] May, [facility] [address] [id number] [address] [place] [address], [place] [address] 31 Apr, 2013 [facility] [address] [id number] [address] [place] [address], [place] [address] 31 Apr, 2013 [facility] [address] [id number] [address] [place] [address], [place] [address] 18 Apr, 2013 [facility] [address] [id number] [address] [place] [address], [place] [address] 18 Apr, 2013 [facility] [address] [id number] [address] [place] [address], [place] [address] 14 Apr, 2013 [facility] [address] [id number] [address] [place] [address], [place] [address] 14 Apr, 2013 [facility] [address] [id number] [address] [place] [address], [place] [address] 25 Mar, 2013 [facility] [address] [id number] [address] [place] [address], [place] [address] Mar, [facility] [address] [id number] [address] [place] [address], [place] [address] Mar, [facility] [address] [id number] [address] [place] [address], [place] [address] 18 Mar, 2013 [facility] [address] [id number] [address] [place] [address], [place] [address] 18 Mar, 2013 [facility] [address] [id number] [address] [place] [address], [place] [address] Feb, [facility] [address] [id number] [address] [place] [address], [place] [address] Feb, [facility] [address] [id number] [address] [place] [address], [place] [address] Feb, [facility] [address] [id number] [address] [place] [address], [place] [address] Feb, [facility] [address] [id number] [address] [place] [address], [place] [address] Feb, [facility] [address] [id number] [address] [place] [address], [place] [address] Feb, [facility] [address] [id number] [address] [place] [address], [place] [address] Jan, [facility] [address] [id number] [address] [place] [address], [place] [address] Jan, [facility] [address] [id number] [address] [place] [address], [place] [address] Jan, [facility] [address] [id number] [address] [place] [address], [place] [address] Jan, [facility] [address] [id number] [address] [place] [address], [place] [address] Dec, [facility] [address] [id number] [address] [place] [address], [place] [address] Dec, [facility] [address] [id number] [address] [place] [address], [place] [address] Dec, [facility] [address] [id number] [address] [place] [address], [place] [address] Dec, [facility] [address] [id number] [address] [place] [address], [place] [address] Dec, [facility] [address] [id number] [address] [place] [address], [place] [address] Dec, [facility] [address] [id number] [address] [place] [address], [place] [address] Nov, [facility] [address] [id number] [address] [place] [address], [place] [address] Nov, [facility] [address] [id number] [address] [place] [address], [place] [address] Nov, [facility] [address] [id number] [address] [place] [address], [place] [address] Nov, [facility] [address] [id number] [address] [place] [address] [address] Nov, [facility] [address] [id number] [address] [place] [address] Nov, [facility] [address] [id number] [address] [place] [address] Oct, [facility] [address] [id number] [address] [place] [address] Oct, [facility] [address] [id number] [address] [place] [address] Sep, [facility] [address] [id number] [address] [place] [id number] Sep, [facility] [address] [id number] [address] [place] [address] Sep, [facility] [address] [id number] [address] [place] [address] Sep, [facility] [address] [id number] [address] [place] [address] Aug, IMMUNIZATIONS No Known Immunizations SOCIAL HISTORY Never Assessed REASON FOR VISIT EMR-[facility] [place] OF CARE VITAL SIGNS MEDICATIONS Unknown [...]
--- OUTSIDE RECORDS SUMMARY | 2019-05-20 06:58 | XMS REPORT ---
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 26700458 Problem Edema 782.3 Active 347162746 Problem Pain in joint, shoulder region 719.41 Active 712004531 Problem Lumbago 724.2 Active 912234242 Problem Anxiety state, unspecified 300.00 Act ahmet [id number] ALLERGIES No Information ENCOUNTERS Encounter Location Date Diagnosis [facility] [address] [facility] [id number] [address] [place] [id number] June, [facility] [address] [facility] [id number] [address] [place] [id number] June, [facility] [address] [facility] [id number] [address] [place] [id number] 29 May, 2014 [facility] [address] [facility] [id number] [address] [place] [phone] 28 May, 2014 Obesity 278.00 and Lumbago 7 24.2 [facility] [address] [facility] [id number] [address] [place] [id number] 14 May, 2014 [facility] [address] [facility] [id number] [address] [place] [phone] May, [facility] [address] [facility] [id number] [address] [place] [address] Apr, [facility] [address] [facility] [id number] [address] [place] [id number] 18 Apr, 2014 [facility] [address] [id number] [address] [place] [address], [place] [address] 18 Apr, 2014 [facility] [address] [id number] [address] [place] [address], [place] [address] 18 Apr, 2014 [facility] [address] [id number] [address] [place] [address], [place] [address] Apr, [facility] [address] [id number] [address] [place] [address], [place] [address] Apr, [facility] [address] [id number] [address] [place] [address], [place] [address] Mar, [facility] [address] [id number] [address] [place] [address], [place] [address] Mar, [facility] [address] [id number] [address] [place] [address], [place] [address] Mar, [facility] [address] [id number] [address] [place] [address], [place] [address] Mar, [facility] [address] [id number] [address] [place] [address], [place] [address] Mar, [facility] [address] [id number] [address] [place] [address], [place] [address] Mar, [facility] [address] [id number] [address] [place] [address], [place] [address] Feb, [facility] [address] [id number] [address] [place] [address], [place] [address] Feb, [facility] [address] [id number] [address] [place] [address], [place] [address] Feb, [facility] [address] [id number] [address] [place] [address], [place] [address] Feb, [facility] [address] [id number] [address] [place] [address], [place] [address] Feb, [facility] [address] [id number] [address] [place] [address], [place] [address] Feb, [facility] [address] [id number] [address] [place] [address], [place] [address] Jan, [facility] [address] [id number] [address] [place] [address], [place] [address] Jan, [facility] [address] [id number] [address] [place] [address], [place] [address] Jan, [facility] [address] [id number] [address] [place] [address], [place] [address] Jan, [facility] [address] [id number] [address] [place] [address], [place] [address] Jan, [facility] [address] [id number] [address] [place] [address], [place] [address] Jan, [facility] [address] [id number] [address] [place] [address], [place] [address] Jan, [facility] [address] [id number] [address] [place] [address], [place] [address] Jan, [facility] [address] [id number] [address] [place] [address], [place] [address] Jan, [facility] [address] [id number] [address] [place] [address], [place] [address] Jan, [facility] [address] [id number] [address] [place] [address], [place] [address] Jan, [facility] [address] [id number] [address] [place] [address], [place] [address] Dec, [facility] [address] [id number] [address] [place] [address], [place] [address] Dec, [facility] [address] [id number] [address] [place] [address], [place] [address] Dec, [facility] [address] [id number] [address] [place] [address], [place] [address] Dec, [facility] [address] [id number] [address] [place] [address], [place] [address] Dec, [facility] [address] [id number] [address] [place] [address], [place] [address] Dec, [facility] [address] [id number] [address] [place] [address], [place] [address] Nov, [facility] [address] [id number] [address] [place] [address], [place] [address] Nov, [facility] [address] [id number] [address] [place] [address], [place] [address] Nov, [facility] [address] [id number] [address] [place] [address], [place] [address] Nov, [facility] [address] [id number] [address] [place] [address], [place] [address] Nov, [facility] [address] [id number] [address] [place] [address], [place] [address] Nov, [facility] [address] [id number] [address] [place] [address], [place] [address] Oct, [facility] [address] [id number] [address] [place] [address], [place] [address] Oct, [facility] [address] [id number] [address] [place] [address], [place] [address] Oct, [facility] [address] [id number] [address] [place] [address] Oct, [facility] [address] [id number] [address] [place] [address], [place] [address] Oct, [facility] [address] [id number] [address] [place] [address], [place] [address] Oct, [facility] [address] [id number] [address] [place] [address], [place] [address] Sep, [facility] [address] [id number] [address] [place] [address], [place] [address] Sep, [facility] [address] [id number] [address] [place] [address], [place] [address] Sep, [facility] [address] [id number] [address] [place] [address], [place] [address] Sep, [facility] [address] [id number] [address] [place] [address], [place] [address] Aug, [facility] [address] [id number] [address] [place] [address], [place] [address] Aug, [facility] [address] [id number] [address] [place] [address], [place] [address] Jul, [facility] [address] [id number] [address] [place] [address], [place] [address] Jul, [facility] [address] [id number] [address] [place] [address], [place] [address] Jul, [facility] [address] [id number] [address] [place] [address], [place] [address] Jul, [facility] [address] [id number] [address] [place] [address], [place] [address] Jul, [facility] [address] [id number] [address] [place] [address], [place] [address] Jul, [facility] [address] [id number] [address] [place] [address], [place] [address] June, [facility] [address] [id number] [address] [place] [address], [place] [address] June, [facility] [address] [id number] [address] [place] [address], [place] [address] June, [facility] [address] [id number] [address] [place] [address], [place] [address] June, [facility] [address] [id number] [address] [place] [address], [place] [address] June, [facility] [address] [id number] [facility] [place] [address] June, [facility] [address] [id number] [address] [place] [address], [place] [address] June, [facility] [address] [id number] [address] [place] [address], [place] [address] June, [facility] [address] [id number] [address] [place] [address], [place] [address] June, [facility] [address] [id number] [address] [place] [address], [place] [address] June, [facility] [address] [id number] [address] [place] [address], [place] [address] June, [facility] [address] [id number] [address] [place] [address], [place] [address] June, [facility] [address] [id number] [address] [place] [address], [place] [address] June, [facility] [address] [id number] [address] [place] [address], [place] [address] June, [facility] [address] [id number] [address] [place] [address], [place] [address] June, [facility] [address] [id number] [address] [place] [address], [place] [address] June, [facility] [address] [id number] [address] [place] [address], [place] [address] May, [facility] [address] [id number] [address] [place] [address], [place] [address] May, [facility] [address] [id number] [address] [place] [address], [place] [address] May, [facility] [address] [id number] [address] [place] [address], [place] [address] May, [facility] [address] [id number] [address] [place] [address], [place] [address] 31 Apr, 2013 [facility] [address] [id number] [address] [place] [address], [place] [address] 31 Apr, 2013 [facility] [address] [id number] [address] [place] [address], [place] [address] 18 Apr, 2013 [facility] [address] [id number] [address] [place] [address], [place] [address] 18 Apr, 2013 [facility] [address] [id number] [address] [place] [address], [place] [address] 14 Apr, 2013 [facility] [address] [id number] [address] [place] [address], [place] [address] 14 Apr, 2013 [facility] [address] [id number] [address] [place] [address], [place] [address] 25 Mar, 2013 [facility] [address] [id number] [address] [place] [address], [place] [address] Mar, [facility] [address] [id number] [address] [place] [address], [place] [address] Mar, [facility] [address] [id number] [address] [place] [address], [place] [address] 18 Mar, 2013 [facility] [address] [id number] [address] [place] [address], [place] [address] 18 Mar, 2013 [facility] [address] [id number] [address] [place] [address], [place] [address] Feb, [facility] [address] [id number] [address] [place] [address], [place] [address] Feb, [facility] [address] [id number] [address] [place] [address], [place] [address] Feb, [facility] [address] [id number] [address] [place] [address], [place] [address] Feb, [facility] [address] [id number] [address] [place] [address], [place] [address] Feb, [facility] [address] [id number] [address] [place] [address], [place] [address] Feb, [facility] [address] [id number] [address] [place] [address], [place] [address] Jan, [facility] [address] [id number] [address] [place] [address], [place] [address] Jan, [facility] [address] [id number] [address] [place] [address], [place] [address] Jan, [facility] [address] [id number] [address] [place] [address], [place] [address] Jan, [facility] [address] [id number] [address] [place] [address], [place] [address] Dec, [facility] [address] [id number] [address] [place] [address], [place] [address] Dec, [facility] [address] [id number] [address] [place] [address], [place] [address] Dec, [facility] [address] [id number] [address] [place] [address], [place] [address] Dec, [facility] [address] [id number] [address] [place] [address], [place] [address] Dec, [facility] [address] [id number] [address] [place] [address], [place] [address] Dec, [facility] [address] [id number] [address] [place] [address], [place] [address] Nov, [facility] [address] [id number] [address] [place] [address], [place] [address] Nov, [facility] [address] [id number] [address] [place] [address], [place] [address] Nov, [facility] [address] [id number] [address] [place] [address], [place] [address] Nov, [facility] [address] [id number] [address] [place] [address] [address] Nov, [facility] [address] [id number] [address] [place] [address] Nov, [facility] [address] [id number] [address] [place] [address] Oct, [facility] [address] [id number] [address] [place] [address] Oct, [facility] [address] [id number] [address] [place] [address] Sep, [facility] [address] [id number] [address] [place] [address] Sep, [facility] [address] [id number] [address] [place] [address] Sep, [facility] [address] [id number] [address] [place] [address] Sep, [facility] [address] [id number] [address] [place] [address] Aug, IMMUNIZATIONS No Known Immunizations SOCIAL HISTORY Never Assessed REASON FOR VISIT EMR-[facility] PLAN OF CARE VITAL SIGNS MEDICATIONS Unknown [...]
--- OUTSIDE RECORDS SUMMARY | 2019-05-20 06:58 | XMS REPORT ---
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 92740503 Problem Edema 782.3 Active 377785908 Problem Pain in joint, shoulder region 719.41 Active 334033579 Problem Lumbago 724.2 Active 570738745 Problem Anxiety state, unspecified 300.00 Act ahmet [id number] ALLERGIES Substance Reaction Event Type Date Status Penicillins Unknown Non Drug Allergy May, Active ENCOUNTERS Encounter Location Date Diagnosis [facility] [address] [id number] [address] [place] [id number] June, [facility] [address] [id number] [address] [place] [phone] June, [facility] [address] [id number] [address] [place] [address] May, [facility] [address] [id number] [address] [place] [address] May, Obesity 278.00 and Lumbago 7 24.2 [facility] [address] [id number] [address] [place] [phone] May, [facility] [address] [id number] [address] [place] [phone] May, [facility] [address] [id number] [address] [place] [address] Apr, [facility] [address] [id number] [address] [place] [address], [place] [address] 18 Apr, 2014 [facility] [address] [id number] [address] [place] [address], [place] [address] 18 Apr, 2014 [facility] [address] [id number] [address] [place] [address], [place] [address] 18 Apr, 2014 [facility] [address] [id number] [address] [place] [address], [place] [address] 11 Apr, 2014 [facility] [address] [id number] [address] [place] [address], [place] [address] 11 Apr, 2014 [facility] [address] [id number] [address] [place] [address], [place] [address] Mar, [facility] [address] [id number] [address] [place] [address], [place] [address] Mar, [facility] [address] [id number] [address] [place] [address], [place] [address] Mar, [facility] [address] [id number] [address] [place] [address], [place] [address] Mar, [facility] [address] [id number] [address] [place] [address], [place] [address] Mar, [facility] [address] [id number] [address] [place] [address], [place] [address] Mar, [facility] [address] [id number] [address] [place] [address], [place] [address] Feb, [facility] [address] [id number] [address] [place] [address], [place] [address] Feb, [facility] [address] [id number] [address] [place] [address], [place] [address] Feb, [facility] [address] [id number] [address] [place] [address], [place] [address] Feb, [facility] [address] [id number] [address] [place] [address], [place] [address] Feb, [facility] [address] [id number] [address] [place] [address], [place] [address] Feb, [facility] [address] [id number] [address] [place] [address], [place] [address] Jan, [facility] [address] [id number] [address] [place] [address], [place] [address] Jan, [facility] [address] [id number] [address] [place] [address], [place] [address] Jan, [facility] [address] [id number] [address] [place] [address], [place] [address] Jan, [facility] [address] [id number] [address] [place] [address], [place] [address] Jan, [facility] [address] [id number] [address] [place] [address], [place] [address] Jan, [facility] [address] [id number] [address] [place] [address], [place] [address] Jan, [facility] [address] [id number] [address] [place] [address], [place] [address] Jan, [facility] [address] [id number] [address] [place] [address], [place] [address] Jan, [facility] [address] [id number] [address] [place] [address], [place] [address] Jan, [facility] [address] [id number] [address] [place] [address], [place] [address] Jan, [facility] [address] [id number] [address] [place] [address], [place] [address] Dec, [facility] [address] [id number] [address] [place] [address], [place] [address] Dec, [facility] [address] [id number] [address] [place] [address], [place] [address] Dec, [facility] [address] [id number] [address] [place] [address], [place] [address] Dec, [facility] [address] [id number] [address] [place] [address], [place] [address] Dec, [facility] [address] [id number] [address] [place] [address], [place] [address] Dec, [facility] [address] [id number] [address] [place] [address], [place] [address] Nov, [facility] [address] [id number] [address] [place] [address], [place] [address] Nov, [facility] [address] [id number] [address] [place] [address], [place] [address] Nov, [facility] [address] [id number] [address] [place] [address], [place] [address] Nov, [facility] [address] [id number] [address] [place] [address], [place] [address] Nov, [facility] [address] [id number] [address] [place] [address], [place] [address] Nov, [facility] [address] [id number] [address] [place] [address], [place] [address] Oct, [facility] [address] [id number] [address] [place] [address], [place] [address] Oct, [facility] [address] [id number] [address] [place] [address], [place] [address] Oct, [facility] [address] [id number] [address] [place] [address], [place] [address] Oct, [facility] [address] [id number] [address] [place] [address], [place] [address] Oct, [facility] [address] [id number] [address] [place] [address], [place] [address] Oct, 2013 [facility] [address] [id number] [address] [place] [address], [place] [address] Sep, [facility] [address] [id number] [address] [place] [address], [place] [address] Sep, [facility] [address] [id number] [address] [place] [address], [place] [address] Sep, [facility] [address] [id number] [address] [place] [address], [place] [address] Sep, [facility] [address] [id number] [address] [place] [address], [place] [address] Aug, [facility] [address] [id number] [address] [place] [address], [place] [address] Aug, [facility] [address] [id number] [address] [place] [address], [place] [address] Jul, [facility] [address] [id number] [address] [place] [address], [place] [address] Jul, [facility] [address] [id number] [address] [place] [address], [place] [address] Jul, [facility] [address] [id number] [address] [place] [address], [place] [address] Jul, [facility] [address] [id number] [address] [place] [address], [place] [address] Jul, [facility] [address] [id number] [address] [place] [address], [place] [address] Jul, [facility] [address] [id number] [address] [place] [address], [place] [address] June, [facility] [address] [id number] [address] [place] [address], [place] [address] June, [facility] [address] [id number] [address] [place] [address], [place] [address] June, [facility] [address] [id number] [address] [place] [address], [place] [address] June, [facility] [address] [id number] [address] [place] [address], [place] [address] June, [facility] [address] [id number] [address] [place] [address], [place] [address] June, [facility] [address] [id number] [address] [place] [address], [place] [address] June, [facility] [address] [id number] [address] [place] [address], [place] [address] June, [facility] [address] [id number] [address] [place] [address], [place] [address] June, [facility] [address] [id number] [address] [place] [address], [place] [address] June, [facility] [address] [id number] [address] [place] [address], [place] [address] June, [facility] [address] [id number] [address] [place] [address], [place] [address] June, [facility] [address] [id number] [address] [place] [address], [place] [address] June, [facility] [address] [id number] [address] [place] [address], [place] [address] June, [facility] [address] [id number] [address] [place] [address], [place] [address] June, [facility] [address] [id number] [address] [place] [address], [place] [address] June, [facility] [address] [id number] [address] [place] [address], [place] [address] May, [facility] [address] [id number] [address] [place] [address], [place] [address] May, [facility] [address] [id number] [address] [place] [address], [place] [address] May, [facility] [address] [id number] [address] [place] [address], [place] [address] May, [facility] [address] [id number] [address] [place] [address], [place] [address] 31 Apr, 2013 [facility] [address] [id number] [address] [place] [address], [place] [address] 31 Apr, 2013 [facility] [address] [id number] [address] [place] [address], [place] [address] 18 Apr, 2013 [facility] [address] [id number] [address] [place] [address], [place] [address] 18 Apr, 2013 [facility] [address] [id number] [address] [place] [address], [place] [address] 14 Apr, 2013 [facility] [address] [id number] [address] [place] [address], [place] [address] 14 Apr, 2013 [facility] [address] [id number] [address] [place] [address], [place] [address] 25 Mar, 2013 [facility] [address] [id number] [address] [place] [address], [place] [address] Mar, [facility] [address] [id number] [address] [place] [address], [place] [address] Mar, [facility] [address] [id number] [address] [place] [address], [place] [address] 18 Mar, 2013 [facility] [address] [id number] [address] [place] [address], [place] [address] 18 Mar, 2013 [facility] [address] [id number] [address] [place] [address], [place] [address] Feb, [facility] [address] [id number] [address] [place] [address], [place] [address] Feb, [facility] [address] [id number] [address] [place] [address], [place] [address] Feb, [facility] [address] [id number] [address] [place] [address], [place] [address] Feb, [facility] [address] [id number] [place] [address] Feb, [facility] [address] [id number] [address] [place] [address], [place] [address] Feb, [facility] [address] [id number] [address] [place] [address], [place] [address] Jan, [facility] [address] [id number] [address] [place] [address] Jan, [facility] [address] [id number] [address] [place] [address] Jan, [facility] [address] [id number] [address] [place] [address], [place] [address] Jan, [facility] [address] [id number] [address] [place] [address] Dec, [facility] [address] [id number] [address] [place] [address], [place] [address] Dec, [facility] [address] [id number] [address] [place] [address], [place] [address] Dec, [facility] [address] [id number] [address] [place] [address], [place] [address] Dec, [facility] [address] [id number] [address] [place] [address], [place] [address] Dec, [facility] [address] [id number] [address] [place] [address] Dec, [facility] [address] [id number] [address] [place] [address] Nov, [facility] [address] [id number] [address] [place] [address], [place] [address] Nov, [facility] [address] [id number] [address] [place] [address], [place] [address] Nov, [facility] [address] [id number] [address] [place] [address] Nov, [facility] [address] [id number] [address] [place] [address] Nov, [facility] [address] [id number] [address] [place] [address] Nov, [facility] [address] [id number] [address] [place] [address] Oct, [facility] [address] [id number] [address] [place] [address] Oct, [facility] [address] [id number] [address] [place] [address] Sep, [facility] [address] [id number] [address] [place] [address] Sep, [facility] [address] [id number] [address] [place] [address] Sep, [facility] [address] [id number] [address] [place] [address] Sep, [facility] [address] [id number] [address] [place] [address] Aug, IMMUNIZATIONS No Known Immunizations SOCIAL HISTORY Never Assessed REASON FOR VISIT [facility] VITAL SIGNS MEDICATIONS Medication Instructions Dosage Frequency Start Date End Date Duration S tatus PredniSONE 20 mg 2 tablet by Oral route 1 time per day for 5 day(s) Nov, Active PredniSONE 10 mg 1 Tablet 2 times per day for 5 days T florencio at 8 am and noon. Jan, Active Hydrocodone-Acetaminophen 10-325 mg 1 Ta blet by Oral route every 6 hours PRN must last 30 days. Apr, Active Neurontin 300 mg 1 capsule by Oral route 3 times per d ay for pain Apr, Active Azithromycin 250 mg 2 Tablet by Oral rou te on day 1 then take 1 daily for 4 days Jan, Active RESULTS No Results PROCEDURES No Known procedures INSTRUCTIONS MEDICATIONS ADMINISTERED No Known Medications MEDICAL (GENERAL) HISTORY Type Description Date Medical History obesity Medical History arthritis back Medical History RLS Medical History migraines Surgical History cholecystectomy 2005 Surgical History orthopedic surgery- bulging disks at L4/L5 since 2008,bilat hip replacement, bilat knee replacement
--- OUTSIDE RECORDS SUMMARY | 2019-05-20 06:58 | XMS REPORT ---
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 92249402 Problem Edema 782.3 Active 757604831 Problem Pain in joint, shoulder region 719.41 Active 369086826 Problem Lumbago 724.2 Active 776695326 Problem Anxiety state, unspecified 300.00 Act ahmet [id number] ALLERGIES No Information ENCOUNTERS Encounter Location Date Diagnosis [facility] [address] [facility] [id number] [address] [place] [phone] June, [facility] [address] [facility] [id number] [address] [place] [address] June, [facility] [address] [facility] [id number] [address] [place] [address] 29 May, 2014 [facility] [address] [facility] [id number] [address] [place] [address] 28 May, 2014 Obesity 278.00 and Lumbago 7 24.2 [facility] [address] [facility] [id number] [address] [place] [address] 14 May, 2014 [facility] [address] [facility] [id number] [address] [place] [address] May, [facility] [address] [facility] [id number] [address] [place] [address] Apr, [facility] [address] [facility] [id number] [address] [place] [address] 18 Apr, 2014 [facility] [address] [id number] [address] [place] [address], [place] [address] 18 Apr, 2014 [facility] [address] [id number] [address] [place] [address], [place] [address] 18 Apr, 2014 [facility] [address] [id number] [address] [place] [address], [place] [address] Apr, [facility] [address] [id number] [address] [place] [address], [place] [address] Apr, [facility] [address] [id number] [address] [place] [address], [place] [address] Mar, [facility] [address] [id number] [address] [place] [address], [place] [address] Mar, [facility] [address] [id number] [address] [place] [address], [place] [address] Mar, [facility] [address] [id number] [address] [place] [address], [place] [address] Mar, [facility] [address] [id number] [address] [place] [address], [place] [address] Mar, [facility] [address] [id number] [address] [place] [address], [place] [address] Mar, [facility] [address] [id number] [address] [place] [address], [place] [address] Feb, [facility] [address] [id number] [address] [place] [address], [place] [address] Feb, [facility] [address] [id number] [address] [place] [address], [place] [address] Feb, [facility] [address] [id number] [address] [place] [address], [place] [address] Feb, [facility] [address] [id number] [address] [place] [address], [place] [address] Feb, [facility] [address] [id number] [address] [place] [address], [place] [address] Feb, [facility] [address] [id number] [address] [place] [address], [place] [address] Jan, [facility] [address] [id number] [address] [place] [address], [place] [address] Jan, [facility] [address] [id number] [address] [place] [address], [place] [address] Jan, [facility] [address] [id number] [address] [place] [address], [place] [address] Jan, [facility] [address] [id number] [address] [place] [address], [place] [address] Jan, [facility] [address] [id number] [address] [place] [address], [place] [address] Jan, [facility] [address] [id number] [address] [place] [address], [place] [address] Jan, [facility] [address] [id number] [address] [place] [address], [place] [address] Jan, [facility] [address] [id number] [address] [place] [address], [place] [address] Jan, [facility] [address] [id number] [address] [place] [address], [place] [address] Jan, [facility] [address] [id number] [address] [place] [address], [place] [address] Jan, [facility] [address] [id number] [address] [place] [address], [place] [address] Dec, [facility] [address] [id number] [address] [place] [address], [place] [address] Dec, [facility] [address] [id number] [address] [place] [address], [place] [address] Dec, [facility] [address] [id number] [address] [place] [address], [place] [address] Dec, [facility] [address] [id number] [address] [place] [address], [place] [address] Dec, [facility] [address] [id number] [address] [place] [address], [place] [address] Dec, [facility] [address] [id number] [address] [place] [address], [place] [address] Nov, [facility] [address] [id number] [address] [place] [address], [place] [address] Nov, [facility] [address] [id number] [address] [place] [address], [place] [address] Nov, [facility] [address] [id number] [address] [place] [address], [place] [address] Nov, [facility] [address] [id number] [address] [place] [address], [place] [address] Nov, [facility] [address] [id number] [address] [place] [address], [place] [address] Nov, [facility] [address] [id number] [address] [place] [address], [place] [address] Oct, [facility] [address] [id number] [address] [place] [address], [place] [address] Oct, [facility] [address] [id number] [address] [place] [address], [place] [address] Oct, [facility] [address] [id number] [address] [place] [address] Oct, [facility] [address] [id number] [address] [place] [address], [place] [address] Oct, [facility] [address] [id number] [address] [place] [address], [place] [address] Oct, [facility] [address] [id number] [address] [place] [address], [place] [address] Sep, [facility] [address] [id number] [address] [place] [address], [place] [address] Sep, [facility] [address] [id number] [address] [place] [address], [place] [address] Sep, [facility] [address] [id number] [address] [place] [address], [place] [address] Sep, [facility] [address] [id number] [address] [place] [address], [place] [address] Aug, [facility] [address] [id number] [address] [place] [address], [place] [address] Aug, [facility] [address] [id number] [address] [place] [address], [place] [address] Jul, [facility] [address] [id number] [address] [place] [address], [place] [address] Jul, [facility] [address] [id number] [address] [place] [address], [place] [address] Jul, [facility] [address] [id number] [address] [place] [address], [place] [address] Jul, [facility] [address] [id number] [address] [place] [address], [place] [address] Jul, [facility] [address] [id number] [address] [place] [address], [place] [address] Jul, [facility] [address] [id number] [address] [place] [address], [place] [address] June, [facility] [address] [id number] [address] [place] [address], [place] [address] June, [facility] [address] [id number] [address] [place] [address], [place] [address] June, [facility] [address] [id number] [address] [place] [address], [place] [address] June, [facility] [address] [id number] [address] [place] [address], [place] [address] June, [facility] [address] [id number] [facility] [place] [address] June, [facility] [address] [id number] [address] [place] [address], [place] [address] June, [facility] [address] [id number] [address] [place] [address], [place] [address] June, [facility] [address] [id number] [address] [place] [address], [place] [address] June, [facility] [address] [id number] [address] [place] [address], [place] [address] June, [facility] [address] [id number] [address] [place] [address], [place] [address] June, [facility] [address] [id number] [address] [place] [address], [place] [address] June, [facility] [address] [id number] [address] [place] [address], [place] [address] June, [facility] [address] [id number] [address] [place] [address], [place] [address] June, [facility] [address] [id number] [address] [place] [address], [place] [address] June, [facility] [address] [id number] [address] [place] [address], [place] [address] June, [facility] [address] [id number] [address] [place] [address], [place] [address] May, [facility] [address] [id number] [address] [place] [address], [place] [address] May, [facility] [address] [id number] [address] [place] [address], [place] [address] May, [facility] [address] [id number] [address] [place] [address], [place] [address] May, [facility] [address] [id number] [address] [place] [address], [place] [address] 31 Apr, 2013 [facility] [address] [id number] [address] [place] [address], [place] [address] 31 Apr, 2013 [facility] [address] [id number] [address] [place] [address], [place] [address] 18 Apr, 2013 [facility] [address] [id number] [address] [place] [address], [place] [address] 18 Apr, 2013 [facility] [address] [id number] [address] [place] [address], [place] [address] 14 Apr, 2013 [facility] [address] [id number] [address] [place] [address], [place] [address] 14 Apr, 2013 [facility] [address] [id number] [address] [place] [address], [place] [address] 25 Mar, 2013 [facility] [address] [id number] [address] [place] [address], [place] [address] Mar, [facility] [address] [id number] [address] [place] [address], [place] [address] Mar, [facility] [address] [id number] [address] [place] [address], [place] [address] 18 Mar, 2013 [facility] [address] [id number] [address] [place] [address], [place] [address] 18 Mar, 2013 [facility] [address] [id number] [address] [place] [address], [place] [address] Feb, [facility] [address] [id number] [address] [place] [address], [place] [address] Feb, [facility] [address] [id number] [address] [place] [address], [place] [address] Feb, [facility] [address] [id number] [address] [place] [address], [place] [address] Feb, [facility] [address] [id number] [address] [place] [address], [place] [address] Feb, [facility] [address] [id number] [address] [place] [address], [place] [address] Feb, [facility] [address] [id number] [address] [place] [address], [place] [address] Jan, [facility] [address] [id number] [address] [place] [address], [place] [address] Jan, [facility] [address] [id number] [address] [place] [address], [place] [address] Jan, [facility] [address] [id number] [address] [place] [address], [place] [address] Jan, [facility] [address] [id number] [address] [place] [address], [place] [address] Dec, [facility] [address] [id number] [address] [place] [address], [place] [address] Dec, [facility] [address] [id number] [address] [place] [address], [place] [address] Dec, [facility] [address] [id number] [address] [place] [address], [place] [address] Dec, [facility] [address] [id number] [address] [place] [address], [place] [address] Dec, [facility] [address] [id number] [address] [place] [address], [place] [address] Dec, [facility] [address] [id number] [address] [place] [address], [place] [address] Nov, [facility] [address] [id number] [address] [place] [address], [place] [address] Nov, [facility] [address] [id number] [address] [place] [address], [place] [address] Nov, [facility] [address] [id number] [address] [place] [address], [place] [address] Nov, [facility] [address] [id number] [address] [place] [address] [address] Nov, [facility] [address] [id number] [address] [place] [address] Nov, [facility] [address] [id number] [address] [place] [address] Oct, [facility] [address] [id number] [address] [place] [address] Oct, [facility] [address] [id number] [address] [place] [address] Sep, [facility] [address] [id number] [address] [place] [address] Sep, [facility] [address] [id number] [address] [place] [address] Sep, [facility] [address] [id number] [address] [place] [address] Sep, [facility] [address] [id number] [address] [place] [address] Aug, IMMUNIZATIONS No Known Immunizations SOCIAL HISTORY Never Assessed [place] [place] VITAL SIGNS MEDICATIONS Unknown [...]
--- OUTSIDE RECORDS SUMMARY | 2019-05-20 06:59 | XMS REPORT | Continuity of Care Document ---
Author Organization Unknown Address Unknown Phone Unavailable Allergies Active Description Code Type Severity Reaction Onset Reported/Identified Relationship to Patient Clinical Status Yes Penicillins Drug Allergy N/A N/A 10/09/2012 Yes Penicillins [id number] Drug Aller gy Unknown N/A 04/22/2017 Medications There is no [...] V43.65 12/27/2009 Ot V57.1 03/22/2010 Ot 311 DEPRES SIVE DISORDER NEC 03/22/2010 Ot 333.94 RES TLESS LEGS SYNDROME 03/22/2010 Ot 401.9 HYPE RTENSION NOS 03/22/2010 Ot 518.0 PULM ONARY COLLAPSE 03/22/2010 Ot 715.90 OST EOARTHROS NOS- UNSPEC 03/22/2010 Ot 727.09 SYN OVITIS NEC 03/22/[address] PAIN NEC 03/22/2010 Ot 996.77 OTH COMPLICATIONS DUE TO INTERNAL JOINT 03/22/2010 Ot 997.1 SURG COMPL-HEART 03/22/2010 Ot E849.[address] NOS 03/22/2010 Ot E878.1 ABN REACT-ARTIF IMPLANT 03/22/2010 Ot V15.82 HIS TORY OF TOBACCO USE 03/22/2010 Ot V43.65 KNE E JOINT REPLACEMENT STATUS 03/22/2010 Ot V85.42 BOD Y MASS INDEX 45.0-49.9, ADULT 12/18/2010 Ot 211.3 MACARIO GN NEOPLASM LG BOWEL 10/09/2012 ARCHANA GREENWOOD, JORDY Adamson 278.00 OBESITY 10/09/2012 JORDY MAGAÑA MD 724.2 [...] DO, JAM K V76.12 Mammogram Screening 10/09/2012 SONU POLICE WORKER, SHARDA R 278.00 OBESITY 10/09/2012 SONU POLICE WORKER, SHARDA R 724.2 LUMBAGO/ LOW BACK PAIN 10/09/2012 SONU POLICE WORKER, SHARDA R 782.3 EDEMA 10/09/2012 SONU POLICE WORKER, SHARDA R V76.12 Mammogram Screening 10/09/2012 SONU POLICE WORKER, SHARDA R 278.00 OBESITY 10/09/2012 SONU POLICE WORKER, SHARDA R 724.2 LUMBAGO/ LOW BACK PAIN 10/09/2012 SONU POLICE WORKER, SHARDA R 782.3 EDEMA 10/09/2012 SONU POLICE WORKER, SHARDA R V76.12 Mammogram Screening 10/09/2012 SONU POLICE WORKER, SHARDA R 278.00 OBESITY 10/09/2012 SONU POLICE WORKER, SHARDA R 724.2 LUMBAGO/ LOW BACK PAIN 10/09/2012 SONU POLICE WORKER, SHARDA R 782.3 EDEMA 10/09/2012 SONU POLICE WORKER, SHARDA R V76.12 Mammogram Screening 10/09/2012 SONU POLICE WORKER, SHARDA R 278.00 OBESITY 10/09/2012 SONU POLICE WORKER, SHARDA R 724.2 LUMBAGO/ LOW BACK PAIN 10/09/2012 SONU POLICE WORKER, SHARDA R 782.3 EDEMA 10/09/2012 SONU POLICE WORKER, SHARDA R V76.12 Mammogram Screening 12/18/2012 JORDY [...] pain, localized in the shoulder 12/18/2012 SONU POLICE WORKER, SHARDA R 271.3 GLUCOSE INTOLERANCE 12/18/2012 SONU BUTLER, SHARDA R 719.41 joint pain, localized in the shoulder 12/18/2012 SONU POLICE WORKER, SHARDA R 271.3 GLUCOSE INTOLERANCE 12/18/2012 SONU POLICE WORKER, SHARDA R 719.41 joint pain, localized in the shoulder 12/18/2012 SONU POLICE WORKER, SHARDA R 271.3 GLUCOSE INTOLERANCE 12/18/2012 SONU POLICE WORKER, SHARDA R 719.41 joint pain, localized in the shoulder 12/18/2012 SONU POLICE WORKER, SHARDA R 271.3 GLUCOSE INTOLERANCE 12/18/2012 SONU POLICE WORKER, SHARDA R 719.41 joint pain, localized in the shoulder 02/26/2013 ARCHANA GREENWOOD, JORDY Adamson Ot 719.41 JOINT PAIN-SHLDER 02/26/2013 ARCHANA GREENWOOD, JORDY Adamson Ot V57.1 PHYSICAL THERAPY NEC 04/15/2013 JORDY MAGAÑA MD 300.00 anxiety 04/15/2013 DEL REAL DO, JAM K 300.00 anxiety 04/15/2013 DEL REAL DO, JAM K 300.00 anxiety 04/15/2013 SONU STOLLN, SHARDA R 300.00 anxiety 04/15/2013 SONU POLICE WORKER, SHARDA R 300.00 anxiety 04/15/2013 SONU POLICE WORKER, SHARDA R 300.00 anxiety 04/15/2013 SONU BUTLER, SHARDA R 300.00 anxiety 02/20/2014 SONU BUTLER, SHARDA R 786.2 COUGH 02/20/2014 SONU BUTLER, SHARDA R 786.2 COUGH 03/03/2014 JEFRY GREENWOOD, IBIS Arias Ot 733.92 CHONDROMALACIA 03/03/2014 JEFRY GREENWOOD, IBIS Arias Ot 840.7 (SLAP) SUPERIOR GLENOID LABRUM LESIONS 03/12/2014 SEJAL THOMSON TRANSMISSION BUILDER Ot V57. 1 03/12/2014 SEJAL THOMSON TRANSMISSION BUILDER Ot V58. 49 03/12/2014 SEJAL HTOMSON TRANSMISSION BUILDER Ot V57. 1 03/12/2014 SEJAL THOMSON TRANSMISSION BUILDER Ot V58. 49 03/12/2014 SEJAL THOMSON TRANSMISSION BUILDER Ot V57. 1 03/12/2014 SEJAL THOMSON TRANSMISSION BUILDER Ot V58. 49 03/25/2014 IBIS CAPPS MD Ot 840.4 03/25/2014 IBIS CAPPS MD Ot E000.8 03/25/2014 JEFRY GREENWOOD, IBIS P Ot E928.9 03/25/2014 JEFRY GREENWOOD, IBIS P Ot V72.63 03/25/2014 JEFRY GREENWOOD, IBIS P Ot V74.8 04/09/2014 SEJAL THOMSON TRANSMISSION BUILDER Ot V57. 1 04/09/2014 SEJAL THOMSON TRANSMISSION BUILDER Ot V58. 49 04/12/2014 SEJAL THOMSON TRANSMISSION BUILDER Ot V57. 1 PHYSICAL THERAPY NEC 04/12/2014 SEJAL THOMSON TRANSMISSION BUILDER Ot V58. 49 OTHER SPECIFIED AFTERCARE FOLLOWING SURG 07/28/2014 Ot [...] Adamson Ot 401.9 09/15/2014 ARCHANA GREENWOOD, JORDY Adamson Ot 782.3 09/20/2014 IRENE GREENWOOD, BALBIR Ot 272.0 09/20/2014 IRENE GREENWOOD, BALBIR Ot 530.81 10/07/2014 IRENE GREENWOOD, BALBIR Ot 272.0 10/07/2014 IRENE GREENWOOD, BALBIR Ot 530.81 10/18/2014 IRENE GREENWOOD, BALBIR Ot 272.0 10/18/2014 IRENE GREENWOOD, BALBIR Ot 530.81 12/18/2014 IRENE GREENWOOD, BALBIR Ot E66.01 MORBID (SEVERE) OBESITY DUE TO EXCESS CA 12/18/2014 BALBIR BONILLA MD Ot G25.81 RESTLESS LEGS SYNDROME 12/18/2014 BALBIR BONILLA MD Ot G44.40 DRUG-INDUCED HEADACHE, NEC, NOT INTRACTA 12/18/2014 BALBIR BONILLA MD Ot I10 ESSENTIAL (PRIMARY) HYPERTENSION 12/18/2014 BALBIR BONILLA MD Ot K21.9 GASTRO-ESOPHAGEAL REFLUX DISEASE WITHOUT 12/18/2014 BALBIR OBNILLA MD Ot M47.9 SPONDYLOSIS, UNSPECIFIED 12/18/2014 BALBIR BONILLA MD Ot R60.9 EDEMA, UNSPECIFIED 12/18/2014 BALBIR BONILLA MD Ot T40.4X 5A ADVERSE EFFECT OF OTHER SYNTHETIC NARCOT 12/18/2014 BALBIR BONILLA MD Ot Z68.43 BODY MASS INDEX (BMI) 50-59.9 , ADULT 12/18/2014 BALBIR BONILLA MD Ot Z87.89 1 PERSONAL HISTORY OF NICOTINE DEPENDENCE 12/24/2014 IRENE GREENWOOD, BALBIR Ot E66.01 12/24/2014 IRENE GREENWOOD, BALBIR Ot Z01.81 2 12/24/2014 IRENE GREENWOOD, BALBIR Ot Z11.2 12/24/2014 [...] Arias Ot 840.4 05/25/2015 JEFRY GREENWOOD, IBIS P Ot E000.8 05/25/2015 JEFRY GREENWOOD, IBIS P Ot E928.9 05/25/2015 JEFRY GREENWOOD, IBIS P Ot V72.63 05/25/2015 JEFRY GREENWOOD, IBIS P Ot V74.8 05/25/2015 IRENE GREENWOOD, BALBIR Ot 272.0 05/25/2015 IRENE GREENWOOD, BALBIR Ot 530.81 05/25/2015 IRENE GREENWOOD, BALBIR Ot E66.01 05/25/2015 IRENE GREENWOOD, BALBIR Ot Z01.81 2 05/25/2015 IRENE GREENWOOD, BALBIR Ot Z11.2 05/25/2015 IRENE GREENWOOD, BALBIR Ot Z68.43 06/28/2015 Ot 719.06 NELSON NT EFFUSION- L/LEG 06/28/2015 Ot 996.59 [facility] H. COMPLIC, OTH. IMPLANT INTERNAL D 06/28/2015 Ot 996.47 OT ER MECH COMPLICATION OF PROSTHETIC SUSAN 06/28/2015 Ot V43.65 KNE E JOINT REPLACEMENT STATUS 06/28/2015 Ot V72.63 PRE -PROCEDURAL LABORATORY EXAMINATION 06/28/2015 Ot V74.8 SCRE EN-BACTERIAL DIS NEC 06/28/2015 Ot 719.45 NELSON NT PAIN-PELVIS 06/28/2015 Ot V43.64 HIP JOINT REPLACEMENT STATUS 06/28/2015 Ot 401.9 HYPE RTENSION NOS 06/28/2015 Ot 703.9 DISE ASE OF NAIL NOS 06/28/2015 Ot 719.40 NELSON NT PAIN-UNSPEC 06/28/2015 Ot 733.90 BON E CARTILAGE DIS NOS 06/28/2015 Ot 780.79 OT MALAISE FATIGUE 06/28/2015 Ot 959.6 HIP THIGH INJURY NOS 06/28/2015 Ot E000.8 OT ER EXTERNAL CAUSE STATUS 06/28/2015 Ot E849.0 ACC IDENT IN HOME 06/28/2015 Ot E885.9 FAL L FROM SLIPPING, TRIPPING, OR STUMBLI 06/28/2015 Ot [...] EXCESS CA 06/28/2015 BALBIR BONILLA MD Ot Z01.81 2 ENCOUNTER FOR PREPROCEDURAL LABORATORY E 06/28/2015 BALBIR BONILLA MD Ot Z11.2 ENCOUNTER FOR SCREENING FOR OTHER BACTER 06/28/2015 BALBIR BONILLA MD Ot Z68.43 BODY MASS INDEX (BMI) 50-59.9 , ADULT 06/28/2015 JESSICA DUKES MD Ot Z12. 31 ENCNTR SCREEN MAMMOGRAM FOR MALIGNANT NE 06/28/2015 JESSICA DUKES MD Ot L65. 9 NONSCARRING HAIR LOSS, UNSPECIFIED 06/28/2015 JESSICA DUKES MD Ot R53. 81 OTHER MALAISE 06/28/2015 JESSICA DUKES MD Ot R53. 83 OTHER FATIGUE 06/30/2015 JESSICA DUKES MD Ot N63 UNSPECIFIED LUMP IN BREAST 07/02/2015 Ot 719.06 NELSON NT EFFUSION- L/LEG 07/02/2015 Ot 996.59 [facility] H. COMPLIC, OTH. IMPLANT INTERNAL D 07/02/2015 Ot 996.47 OT ER [facility] COMPLICATION OF PROSTHETIC SUSAN 07/02/2015 Ot V43.65 KNE E JOINT REPLACEMENT STATUS 07/02/2015 Ot V72.63 PRE -PROCEDURAL LABORATORY EXAMINATION 07/02/2015 Ot V74.8 SCRE EN-BACTERIAL DIS NEC 07/02/2015 Ot 719.45 NELSON NT PAIN-PELVIS 07/02/2015 Ot V43.64 HIP JOINT REPLACEMENT STATUS 07/02/2015 Ot 401.9 HYPE RTENSION NOS 07/02/2015 Ot 703.9 DISE ASE OF NAIL NOS 07/02/2015 Ot 719.40 NELSON NT PAIN-UNSPEC 07/02/2015 Ot 733.90 BON E CARTILAGE DIS NOS 07/02/2015 Ot 780.79 OT MALAISE FATIGUE 07/02/2015 Ot 959.6 HIP THIGH INJURY NOS 07/02/2015 Ot E000.8 OT ER EXTERNAL CAUSE STATUS 07/02/2015 Ot E849.0 ACC IDENT IN HOME 07/02/2015 Ot E885.9 FAL L FROM SLIPPING, TRIPPING, OR STUMBLI 07/02/2015 Ot V43.64 HIP JOINT REPLACEMENT STATUS 07/02/2015 ARCHANA GREENWOOD, JORDY Adamson Ot 401.9 HYPERTENSION NOS 07/02/2015 ARCHANA GREENWOOD, JORDY Adamson Ot 782.3 EDEMA 07/02/2015 IBIS CAPPS MD Ot 840.4 SPRAIN ROTATOR CUFF 07/02/2015 IBIS CAPPS MD Ot E000.8 OTHER EXTERNAL CAUSE STATUS 07/02/2015 IBIS CAPPS MD Ot E928.9 ACCIDENT NOS 07/02/2015 IBIS CAPPS MD Ot V72.63 PRE-PROCEDURAL LABORATORY EXAMINATION 07/02/2015 IBIS CAPPS MD Ot V74.8 SCREEN-BACTERIAL DIS NEC 07/02/2015 BALBIR BONILLA MD Ot 272.0 PURE HYPERCHOLESTEROLEM 07/02/2015 BALBIR BONILLA MD Ot 530.81 ESOPHAGEAL REFLUX 07/02/2015 BALBIR BONILLA MD, Ot E66.01 MORBID (SEVERE) OBESITY DUE TO EXCESS CA 07/02/2015 BALBIR BONILLA MD, Ot Z01.81 2 ENCOUNTER FOR PREPROCEDURAL LABORATORY E 07/02/2015 BALBIR BONILLA MD, Ot Z11.2 ENCOUNTER FOR SCREENING FOR OTHER BACTER 07/02/2015 BALBIR BONILLA MD, Ot Z68.43 BODY MASS INDEX (BMI) 50-59.9 , ADULT 07/02/2015 JESSICA DKUES MD Ot Z12. 31 ENCNTR SCREEN MAMMOGRAM FOR MALIGNANT NE 07/02/2015 JESSICA DUKES MD Ot L65. 9 NONSCARRING HAIR LOSS, UNSPECIFIED 07/02/2015 JESSICA DUKES MD Ot R53. 81 OTHER MALAISE 07/02/2015 JESSICA DUKES MD Ot R53. 83 OTHER FATIGUE 07/02/2015 JESSICA DUKES MD Ot N63 UNSPECIFIED LUMP IN BREAST 07/08/2015 JESSICA DUKES MD Ot L65. 9 NONSCARRING HAIR LOSS, UNSPECIFIED 07/08/2015 JESSICA DUKES MD Ot R53. 81 OTHER MALAISE 07/08/2015 JESSICA DUKES MD Ot R53. 83 OTHER FATIGUE 07/29/2015 JESSICA DUKES MD, Ot N63 UNSPECIFIED LUMP IN BREAST 12/06/2015 Ot 719.45 NELSON NT PAIN-PELVIS 12/06/2015 Ot V43.64 HIP JOINT REPLACEMENT STATUS 12/06/2015 Ot 401.9 HYPE RTENSION NOS 12/06/2015 Ot 703.9 DISE ASE OF NAIL NOS 12/06/2015 Ot 719.40 NELSON NT PAIN-UNSPEC 12/06/2015 Ot 733.90 BON E CARTILAGE DIS NOS 12/06/2015 Ot 780.79 OTH MALAISE FATIGUE 12/06/2015 Ot 959.6 HIP THIGH INJURY NOS 12/06/2015 Ot E000.8 OTH ER EXTERNAL CAUSE STATUS 12/06/2015 Ot E849.0 ACC IDENT IN HOME 12/06/2015 Ot E885.9 FAL L FROM SLIPPING, TRIPPING, OR STUMBLI 12/06/2015 Ot V43.64 HIP JOINT REPLACEMENT STATUS 12/06/2015 ARCHANA GREENWOOD, JORDY Adamson Ot 401.9 HYPERTENSION NOS 12/06/2015 ARCHANA GREENWOOD, [...] EXCESS CA 12/06/2015 BALBIR BONILLA MD Ot Z01.81 2 ENCOUNTER FOR PREPROCEDURAL LABORATORY E 12/06/2015 BALBIR BONILLA MD Ot Z11.2 ENCOUNTER FOR SCREENING FOR OTHER BACTER 12/06/2015 BALBIR BONILLA MD Ot Z68.43 BODY MASS INDEX (BMI) 50-59.9 , ADULT 12/06/2015 JESSICA DUKES MD Ot Z12. 31 ENCNTR SCREEN MAMMOGRAM FOR MALIGNANT NE 12/06/2015 JESSICA DUKES MD Ot L65. 9 NONSCARRING HAIR LOSS, UNSPECIFIED 12/06/2015 JESSICA DUKES MD Ot R53. 81 OTHER MALAISE 12/06/2015 JESSICA DUKES MD, Ot R53. 83 OTHER FATIGUE 12/06/2015 JESSICA DUKES MD Ot N63 UNSPECIFIED LUMP IN BREAST 12/07/2015 Ot 719.45 NELSON NT PAIN-PELVIS 12/07/2015 Ot V43.64 HIP JOINT REPLACEMENT STATUS 12/07/2015 Ot 401.9 HYPE RTENSION NOS 12/07/2015 Ot 703.9 DISE ASE OF NAIL NOS 12/07/2015 Ot 719.40 NELSON NT PAIN-UNSPEC 12/07/2015 Ot 733.90 BON E CARTILAGE DIS NOS 12/07/2015 Ot 780.79 OTH MALAISE FATIGUE 12/07/2015 Ot 959.6 HIP THIGH INJURY NOS 12/07/2015 Ot E000.8 OTH ER EXTERNAL CAUSE STATUS 12/07/2015 Ot E849.0 ACC IDENT IN HOME 12/07/2015 Ot E885.9 FAL L FROM SLIPPING, TRIPPING, OR STUMBLI 12/07/2015 Ot [...] EXCESS CA 12/07/2015 BALBIR BONILLA MD Ot Z01.81 2 ENCOUNTER FOR PREPROCEDURAL LABORATORY E 12/07/2015 BALBIR BONILLA MD Ot Z11.2 ENCOUNTER FOR SCREENING FOR OTHER BACTER 12/07/2015 BALBIR BONILLA MD Ot Z68.43 BODY MASS INDEX (BMI) 50-59.9 , ADULT 12/07/2015 JESSICA DUKES MD Ot Z12. 31 ENCNTR SCREEN MAMMOGRAM FOR MALIGNANT NE 12/07/2015 JESSICA DUKES MD Ot L65. 9 NONSCARRING HAIR LOSS, UNSPECIFIED 12/07/2015 JESSICA DUKES MD Ot R53. 81 OTHER MALAISE 12/07/2015 JESSICA DUKES MD Ot R53. 83 OTHER FATIGUE 12/07/2015 JESSICA DUKES MD Ot N63 UNSPECIFIED LUMP IN BREAST 01/12/2016 Ot 719.45 NELSON NT PAIN-PELVIS 01/12/2016 Ot V43.64 HIP JOINT REPLACEMENT STATUS 01/12/2016 Ot 401.9 HYPE RTENSION NOS 01/12/2016 Ot 703.9 DISE ASE OF NAIL NOS 01/12/2016 Ot 719.40 NELSON NT PAIN-UNSPEC 01/12/2016 Ot 733.90 BON E CARTILAGE DIS NOS 01/12/2016 Ot 780.79 OTH MALAISE FATIGUE 01/12/2016 Ot 959.6 HIP THIGH INJURY NOS 01/12/2016 Ot E000.8 OTH ER EXTERNAL CAUSE STATUS 01/12/2016 Ot E849.0 ACC IDENT IN HOME 01/12/2016 Ot E885.9 FAL L FROM SLIPPING, TRIPPING, OR STUMBLI 01/12/2016 Ot [...] EXCESS CA 01/12/2016 BALBIR BONILLA MD Ot Z01.81 2 ENCOUNTER FOR PREPROCEDURAL LABORATORY E 01/12/2016 BALBIR BONILLA MD Ot Z11.2 ENCOUNTER FOR SCREENING FOR OTHER BACTER 01/12/2016 BALBIR BONILLA MD Ot Z68.43 BODY MASS INDEX (BMI) 50-59.9 , ADULT 01/12/2016 JESSICA DUKES MD Ot Z12. 31 ENCNTR SCREEN MAMMOGRAM FOR MALIGNANT NE 01/12/2016 JESSICA DUKES MD Ot L65. 9 NONSCARRING HAIR LOSS, UNSPECIFIED 01/12/2016 JESSICA DUKES MD Ot R53. 81 OTHER MALAISE 01/12/2016 JESSICA DUKES MD Ot R53. 83 OTHER FATIGUE 01/12/2016 JESSICA DUKES MD Ot N63 UNSPECIFIED LUMP IN BREAST 01/12/2016 Ot 719.45 NELSON NT PAIN-PELVIS 01/12/2016 Ot V43.64 HIP JOINT REPLACEMENT STATUS 01/12/2016 Ot 401.9 HYPE RTENSION NOS 01/12/2016 Ot 703.9 DISE ASE OF NAIL NOS 01/12/2016 Ot 719.40 NELSON NT PAIN-UNSPEC 01/12/2016 Ot 733.90 BON E CARTILAGE DIS NOS 01/12/2016 Ot 780.79 OTH MALAISE FATIGUE 01/12/2016 Ot 959.6 HIP THIGH INJURY NOS 01/12/2016 Ot E000.8 OTH ER EXTERNAL CAUSE STATUS 01/12/2016 Ot E849.0 ACC IDENT IN HOME 01/12/2016 Ot E885.9 FAL L FROM SLIPPING, TRIPPING, OR STUMBLI 01/12/2016 Ot [...] EXCESS CA 01/12/2016 BALBIR BONILLA MD Ot Z01.81 2 ENCOUNTER FOR PREPROCEDURAL LABORATORY E 01/12/2016 BALBIR BONILLA MD, Ot Z11.2 ENCOUNTER FOR SCREENING FOR OTHER BACTER 01/12/2016 BALBIR BONILLA MD Ot Z68.43 BODY MASS INDEX (BMI) 50-59.9 , ADULT 01/12/2016 JESSICA DUKES MD Ot Z12. 31 ENCNTR SCREEN MAMMOGRAM FOR MALIGNANT NE 01/12/2016 JESSICA DUKES MD Ot L65. 9 NONSCARRING HAIR LOSS, UNSPECIFIED 01/12/2016 JESSICA DUKES MD Ot R53. 81 OTHER MALAISE 01/12/2016 JESSICA DUKES MD Ot R53. 83 OTHER FATIGUE 01/12/2016 JESSICA DUKES MD Ot N63 UNSPECIFIED LUMP IN BREAST 07/27/2016 Ot 401.9 HYPE RTENSION NOS 07/27/2016 Ot 703.9 DISE ASE OF NAIL NOS 07/27/2016 Ot 719.40 NELSON NT PAIN-UNSPEC 07/27/2016 Ot 733.90 BON E CARTILAGE DIS NOS 07/27/2016 Ot 780.79 OTH MALAISE FATIGUE 07/27/2016 Ot 959.6 HIP THIGH INJURY NOS 07/27/2016 Ot E000.8 OTH ER EXTERNAL CAUSE STATUS 07/27/2016 Ot E849.0 ACC IDENT IN HOME 07/27/2016 Ot E885.9 FAL L FROM SLIPPING, TRIPPING, OR STUMBLI 07/27/2016 Ot [...] DUE TO EXCESS CA 07/27/2016 BALBIR BONILLA MD Ot Z01.81 2 ENCOUNTER FOR PREPROCEDURAL LABORATORY E 07/27/2016 BALBIR BONILLA MD, Ot Z11.2 ENCOUNTER FOR SCREENING FOR OTHER BACTER 07/27/2016 BALBIR BONILLA MD, Ot Z68.43 BODY MASS INDEX (BMI) 50-59.9 , ADULT 07/27/2016 JESSICA DUKES MD Ot Z12. 31 ENCNTR SCREEN MAMMOGRAM FOR MALIGNANT NE 07/27/2016 JESSICA DUKES MD Ot L65. 9 NONSCARRING HAIR LOSS, UNSPECIFIED 07/27/2016 JESSICA DUKES MD Ot R53. 81 OTHER MALAISE 07/27/2016 JESSICA DUKES MD Ot R53. 83 OTHER FATIGUE 07/27/2016 JESSICA DUKES MD Ot N63 UNSPECIFIED LUMP IN BREAST 04/22/2017 Ot 959.6 HIP THIGH INJURY NOS 04/22/2017 Ot E000.8 OTH ER EXTERNAL CAUSE STATUS 04/22/2017 Ot E849.0 ACC IDENT IN HOME 04/22/2017 Ot E885.9 FAL L FROM SLIPPING, TRIPPING, OR STUMBLI 04/22/2017 Ot [...] DUE TO EXCESS CA 04/22/2017 BALBIR BONILLA MD, Ot Z01.81 2 ENCOUNTER FOR PREPROCEDURAL LABORATORY E 04/22/2017 BALBIR BONILLA MD, Ot Z11.2 ENCOUNTER FOR SCREENING FOR OTHER BACTER 04/22/2017 ABLBIR BONILLA MD, Ot Z68.43 BODY MASS INDEX (BMI) 50-59.9 , ADULT 04/22/2017 JESSICA DUKES MD, Ot Z12. 31 ENCNTR SCREEN MAMMOGRAM FOR MALIGNANT NE 04/22/2017 JESSICA DUKES MD Ot L65. 9 NONSCARRING HAIR LOSS, UNSPECIFIED 04/22/2017 JESSICA DUKES MD Ot R53. 81 OTHER MALAISE 04/22/2017 JESSICA DUKES MD Ot R53. 83 OTHER FATIGUE 04/22/2017 JESSICA DUKES MD Ot N63 UNSPECIFIED LUMP IN BREAST 04/22/2017 LINDEN MAX MD Ot J11. 1 FLU DUE TO UNIDENTIFIED INFLUENZA VIRUS 04/22/2017 LINDEN MAX MD Ot J20. 9 ACUTE BRONCHITIS, UNSPECIFIED 04/22/2017 LINDEN MAX MD Ot M19. 90 UNSPECIFIED OSTEOARTHRITIS, UNSPECIFIED 04/22/2017 LINDEN MAX MD Ot R06. 02 SHORTNESS OF BREATH 04/22/2017 LINDEN MAX MD Ot Z79. 52 GROUP HOME (CURRENT) USE OF SYSTEMIC STER 04/22/2017 LINDEN MAX MD Ot Z87.891 PERSONAL HISTORY OF NICOTINE DEPENDENCE 04/22/2017 LINDEN MAX MD Ot Z88. 0 ALLERGY STATUS TO PENICILLIN 04/25/2017 JESSICA DUKES MD Ot E86. 0 DEHYDRATION 04/25/2017 JESSICA DUKES MD Ot F17.210 NICOTINE DEPENDENCE, CIGARETTES, UNCOMPL 04/25/2017 JESSICA DUKES MD, Ot G25. 81 RESTLESS LEGS SYNDROME 04/25/2017 JESSICA DUKES MD, Ot J40 BRONCHITIS, NOT SPECIFIED ACUTE OR CH 04/25/2017 JESSICA DUKES MD Ot R53. 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 1 FLU DUE TO UNIDENTIFIED INFLUENZA VIRUS 04/28/2017 LINDEN MAX MD Ot J20. 9 ACUTE BRONCHITIS, UNSPECIFIED 04/28/2017 LINDEN MAX MD Ot M19. 90 UNSPECIFIED OSTEOARTHRITIS, UNSPECIFIED 04/28/2017 LINDEN MAX MD Ot R06. 02 SHORTNESS OF BREATH 04/28/2017 LINDEN MAX MD Ot Z79. 52 ENGINE LATHE SET UP OPERATOR TOOL (CURRENT) USE OF SYSTEMIC STER 04/28/2017 LINDEN MAX MD Ot Z87.891 PERSONAL HISTORY OF NICOTINE DEPENDENCE 04/28/2017 LINDEN MAX MD Ot Z88. 0 ALLERGY STATUS TO PENICILLIN 11/19/2017 LINDEN MAX MD Ot G25. 81 RESTLESS LEGS SYNDROME 11/19/2017 LINDEN MAX MD Ot N39. 0 URINARY TRACT INFECTION, SITE NOT SPECIF 11/19/2017 LINDEN MAX MD Ot R10. 31 RIGHT LOWER QUADRANT PAIN 11/19/2017 LINDEN MAX MD Ot Z79. 52 ENGINE LATHE SET UP OPERATOR TOOL (CURRENT) USE OF SYSTEMIC STER 11/19/2017 LINDEN MAX MD Ot Z86.010 PERSONAL HISTORY OF COLONIC POLYPS 11/19/2017 LINDEN MAX MD Ot Z87.891 PERSONAL HISTORY OF NICOTINE DEPENDENCE 11/19/2017 LINDEN MAX MD Ot Z88. 0 ALLERGY STATUS TO PENICILLIN 11/19/2017 LINDEN MAX MD Ot Z90. 49 ACQUIRED ABSENCE OF OTHER SPECIFIED PART 11/19/2017 LINDEN MAX MD Ot Z96.643 PRESENCE OF ARTIFICIAL HIP JOINT, BILATE 11/19/2017 LINDEN MAX MD Ot Z96.653 PRESENCE OF ARTIFICIAL KNEE JOINT, BILAT 11/19/2017 LINDEN MAX MD Ot Z98. 84 BARIATRIC SURGERY STATUS 11/21/2017 LINDEN MAX MD Ot G25. 81 RESTLESS LEGS SYNDROME 11/21/2017 LINDEN MAX MD Ot N39. 0 URINARY TRACT INFECTION, SITE NOT SPECIF 11/21/2017 LINDEN MAX MD Ot R10. 31 RIGHT LOWER QUADRANT PAIN 11/21/2017 LINDEN MAX MD Ot Z79. 52 GROUP HOME (CURRENT) USE OF SYSTEMIC STER 11/21/2017 LINDEN MAX MD Ot Z86.010 PERSONAL HISTORY OF COLONIC POLYPS 11/21/2017 LINDEN MAX MD Ot Z87.891 PERSONAL HISTORY OF NICOTINE DEPENDENCE 11/21/2017 LINDEN MAX MD Ot Z88. 0 ALLERGY STATUS TO PENICILLIN 11/21/2017 LINDEN MAX MD Ot Z90. 49 ACQUIRED ABSENCE OF OTHER SPECIFIED PART 11/21/2017 LINDEN MAX MD Ot Z96.643 PRESENCE OF ARTIFICIAL HIP JOINT, BILATE 11/21/2017 LINDEN MAX MD Ot Z96.653 PRESENCE OF ARTIFICIAL KNEE JOINT, BILAT 11/21/2017 LINDEN MAX MD Ot Z98. 84 BARIATRIC SURGERY STATUS 11/22/2017 JORDY MAGAÑA MD Ot 401.9 HYPERTENSION NOS 11/22/2017 JODRY MAGAÑA MD Ot 782.3 EDEMA 11/22/2017 IBIS CAPPS MD Ot 840.4 SPRAIN ROTATOR CUFF 11/22/2017 IBIS CAPPS MD Ot E000.8 OTHER EXTERNAL CAUSE STATUS 11/22/2017 IBIS CAPPS MD Ot E928.9 ACCIDENT NOS 11/22/2017 IBIS CAPPS MD Ot V72.63 PRE-PROCEDURAL LABORATORY EXAMINATION 11/22/2017 IBIS CAPPS MD Ot V74.8 SCREEN-BACTERIAL DIS NEC 11/22/2017 BALBIR BONILLA MD Ot 272.0 PURE HYPERCHOLESTEROLEM 11/22/2017 BALBIR BONILLA MD Ot 530.81 ESOPHAGEAL REFLUX 11/22/2017 BALBIR BONILLA MD Ot E66.01 MORBID (SEVERE) OBESITY DUE TO EXCESS CA 11/22/2017 BALBIR BONILLA MD, Ot Z01.81 2 ENCOUNTER FOR PREPROCEDURAL LABORATORY E 11/22/2017 BALBIR BONILLA MD, Ot Z11.2 ENCOUNTER FOR SCREENING FOR OTHER BACTER 11/22/2017 BALBIR BONILLA MD, Ot Z68.43 BODY MASS INDEX (BMI) 50-59.9 , ADULT 11/22/2017 JESSICA DUKES MD, Ot Z12. 31 ENCNTR SCREEN MAMMOGRAM FOR MALIGNANT NE 11/22/2017 JESSICA DUKES MD Ot L65. 9 NONSCARRING HAIR LOSS, UNSPECIFIED 11/22/2017 JESSICA DUKES MD Ot R53. 81 OTHER MALAISE 11/22/2017 JESSICA DUKES MD Ot R53. 83 OTHER FATIGUE 11/22/2017 JESSICA DUKES MD Ot N63 UNSPECIFIED LUMP IN BREAST 12/14/2017 JORDY MAGAÑA MD Ot 401.9 HYPERTENSION NOS 12/14/2017 JORDY MAGAÑA MD Ot 782.3 EDEMA 12/14/2017 IBIS CAPPS MD Ot 840.4 SPRAIN ROTATOR CUFF 12/14/2017 IBIS CAPPS MD Ot E000.8 OTHER EXTERNAL CAUSE STATUS 12/14/2017 IBIS CAPPS MD Ot E928.9 ACCIDENT NOS 12/14/2017 IBIS CAPPS MD Ot V72.63 PRE-PROCEDURAL LABORATORY EXAMINATION 12/14/2017 IBIS CAPPS MD Ot V74.8 SCREEN-BACTERIAL DIS NEC 12/14/2017 BALBIR BONILLA MD Ot 272.0 PURE HYPERCHOLESTEROLEM 12/14/2017 BALBIR BONILLA MD Ot 530.81 ESOPHAGEAL REFLUX 12/14/2017 BALBIR BONILLA MD, Ot E66.01 MORBID (SEVERE) OBESITY DUE TO EXCESS CA 12/14/2017 BALBIR BONILLA MD, Ot Z01.81 2 ENCOUNTER FOR PREPROCEDURAL LABORATORY E 12/14/2017 BALBIR BONILLA MD, Ot Z11.2 ENCOUNTER FOR SCREENING FOR OTHER BACTER 12/14/2017 BALBIR BONILLA MD, Ot Z68.43 BODY MASS INDEX (BMI) 50-59.9 , ADULT 12/14/2017 JESSICA DUKES MD, Ot Z12. 31 ENCNTR SCREEN MAMMOGRAM FOR MALIGNANT NE 12/14/2017 JESSICA DUKES MD Ot L65. 9 NONSCARRING HAIR LOSS, UNSPECIFIED 12/14/2017 JESSICA DUKES MD Ot R53. 81 OTHER MALAISE 12/14/2017 JESSICA DUKES MD, Ot R53. 83 OTHER FATIGUE 12/14/2017 JESSICA DUKES MD, Ot N63 UNSPECIFIED LUMP IN BREAST 12/14/2017 JESSICA DUKES MD Ot M41. 86 OTHER FORMS OF SCOLIOSIS, LUMBAR REGION 12/14/2017 JESSICA DUKES MD, Ot M46. 87 OTH INFLAMMATORY SPONDYLOPATHIES, LUMBOS 12/14/2017 JESSICA DUKES MD, Ot M51. 37 OTHER INTERVERTEBRAL DISC DEGENERATION, 12/31/2017 JORDY MAGAÑA MD Ot 401.9 HYPERTENSION NOS 12/31/2017 JORDY MAGAÑA MD Ot 782.3 EDEMA 12/31/2017 IBIS CAPPS MD Ot 840.4 SPRAIN ROTATOR CUFF 12/31/2017 IBIS CAPPS MD Ot E000.8 OTHER EXTERNAL CAUSE STATUS 12/31/2017 IBIS CAPPS MD Ot E928.9 ACCIDENT NOS 12/31/2017 IBIS CAPPS MD Ot V72.63 PRE-PROCEDURAL LABORATORY EXAMINATION 12/31/2017 IBIS CAPPS MD Ot V74.8 SCREEN-BACTERIAL DIS NEC 12/31/2017 BALBIR BONILLA MD Ot 272.0 PURE HYPERCHOLESTEROLEM 12/31/2017 BALBIR BONILLA MD Ot 530.81 ESOPHAGEAL REFLUX 12/31/2017 BALBIR BONILLA MD Ot E66.01 MORBID (SEVERE) OBESITY DUE TO EXCESS CA 12/31/2017 BALBIR BONILLA MD, Ot Z01.81 2 ENCOUNTER FOR PREPROCEDURAL LABORATORY E 12/31/2017 BALBIR BONILLA MD, Ot Z11.2 ENCOUNTER FOR SCREENING FOR OTHER BACTER 12/31/2017 BALBIR BONILLA MD, Ot Z68.43 BODY MASS INDEX (BMI) 50-59.9 , ADULT 12/31/2017 JESSICA DUKES MD, Ot Z12. 31 ENCNTR SCREEN MAMMOGRAM FOR MALIGNANT NE 12/31/2017 JESSICA DUKES MD Ot L65. 9 NONSCARRING HAIR LOSS, UNSPECIFIED 12/31/2017 JESSICA DUKES MD Ot R53. 81 OTHER MALAISE 12/31/2017 JESSICA DUKES MD Ot R53. 83 OTHER FATIGUE 12/31/2017 JESSICA DUKES MD, Ot N63 UNSPECIFIED LUMP IN BREAST 12/31/2017 JESSICA DUKES MD, Ot M41. 86 OTHER FORMS OF SCOLIOSIS, LUMBAR REGION 12/31/2017 JESSICA DUKES MD Ot M46. 87 OTH INFLAMMATORY SPONDYLOPATHIES, LUMBOS 12/31/2017 JESSICA DUKES MD, Ot M51. 37 OTHER INTERVERTEBRAL DISC DEGENERATION, 01/01/2018 JORDY MAGAÑA MD Ot 401.9 HYPERTENSION NOS 01/01/2018 JORDY MAGAÑA MD Ot 782.3 EDEMA 01/01/2018 IBIS CAPPS MD Ot 840.4 SPRAIN ROTATOR CUFF 01/01/2018 IBIS CAPPS MD Ot E000.8 OTHER EXTERNAL CAUSE STATUS 01/01/2018 IBIS CAPPS MD Ot E928.9 ACCIDENT NOS 01/01/2018 IBIS CAPPS MD Ot V72.63 PRE-PROCEDURAL LABORATORY EXAMINATION 01/01/2018 IBIS CAPPS MD Ot V74.8 SCREEN-BACTERIAL DIS NEC 01/01/2018 BALBIR BONILLA MD Ot 272.0 PURE HYPERCHOLESTEROLEM 01/01/2018 BALBIR BONILLA MD Ot 530.81 ESOPHAGEAL REFLUX 01/01/2018 BALBIR BONILLA MD Ot E66.01 MORBID (SEVERE) OBESITY DUE TO EXCESS CA 01/01/2018 BALBIR BONILLA MD, Ot Z01.81 2 ENCOUNTER FOR PREPROCEDURAL LABORATORY E 01/01/2018 BALBIR BONILLA MD, Ot Z11.2 ENCOUNTER FOR SCREENING FOR OTHER BACTER 01/01/2018 BALBIR BONILLA MD, Ot Z68.43 BODY MASS INDEX (BMI) 50-59.9 , ADULT 01/01/2018 JESSICA DUKSE MD, Ot Z12. 31 ENCNTR SCREEN MAMMOGRAM FOR MALIGNANT NE 01/01/2018 JESSICA DUKES MD, Ot L65. 9 NONSCARRING HAIR LOSS, UNSPECIFIED 01/01/2018 JESSICA DUKES MD Ot R53. 81 OTHER MALAISE 01/01/2018 JESSICA DUKES MD Ot R53. 83 OTHER FATIGUE 01/01/2018 JESSICA DUKES MD, Ot N63 UNSPECIFIED LUMP IN BREAST 01/01/2018 JESSICA DUKES MD, Ot M41. 86 OTHER FORMS OF SCOLIOSIS, LUMBAR REGION 01/01/2018 JESSICA DUKES MD, Ot M46. 87 OTH INFLAMMATORY SPONDYLOPATHIES, LUMBOS 01/01/2018 JESSICA DUKES MD, Ot M51. 37 OTHER INTERVERTEBRAL DISC DEGENERATION, 01/01/2018 JORDY MAGAÑA MD Ot 401.9 HYPERTENSION NOS 01/01/2018 JORDY MAGAÑA MD Ot 782.3 EDEMA 01/01/2018 IBIS CAPPS MD Ot 840.4 SPRAIN ROTATOR CUFF 01/01/2018 IBIS CAPPS MD Ot E000.8 OTHER EXTERNAL CAUSE STATUS 01/01/2018 IBIS CAPPS MD Ot E928.9 ACCIDENT NOS 01/01/2018 IBIS CAPPS MD Ot V72.63 PRE-PROCEDURAL LABORATORY EXAMINATION 01/01/2018 IBIS CAPPS MD Ot V74.8 SCREEN-BACTERIAL DIS NEC 01/01/2018 BALBIR BONILLA MD Ot 272.0 PURE HYPERCHOLESTEROLEM 01/01/2018 BALBIR BONILAL MD Ot 530.81 ESOPHAGEAL REFLUX 01/01/2018 BALBIR BONILLA MD Ot E66.01 MORBID (SEVERE) OBESITY DUE TO EXCESS CA 01/01/2018 BALBIR BONILLA MD, Ot Z01.81 2 ENCOUNTER FOR PREPROCEDURAL LABORATORY E 01/01/2018 BALBIR BONILLA MD, Ot Z11.2 ENCOUNTER FOR SCREENING FOR OTHER BACTER 01/01/2018 BALBIR BONILLA MD, Ot Z68.43 BODY MASS INDEX (BMI) 50-59.9 , ADULT 01/01/2018 JESSICA DUKES MD, Ot Z12. 31 ENCNTR SCREEN MAMMOGRAM FOR MALIGNANT NE 01/01/2018 JESSICA DUKES MD Ot L65. 9 NONSCARRING HAIR LOSS, UNSPECIFIED 01/01/2018 JESSICA DUKES MD Ot R53. 81 OTHER MALAISE 01/01/2018 JESSICA DUKES MD Ot R53. 83 OTHER FATIGUE 01/01/2018 JESSICA DUKES MD, Ot N63 UNSPECIFIED LUMP IN BREAST 01/01/2018 JESSICA DUKES MD Ot M41. 86 OTHER FORMS OF SCOLIOSIS, LUMBAR REGION 01/01/2018 JESSICA DUKES MD Ot M46. 87 OTH INFLAMMATORY SPONDYLOPATHIES, LUMBOS 01/01/2018 JESSICA DUKES MD, Ot M51. 37 OTHER INTERVERTEBRAL DISC DEGENERATION, 01/02/2018 JORDY MAGAÑA MD Ot 401.9 HYPERTENSION NOS 01/02/2018 ARCHANA GREENWOOD, JORDY Adamson Ot 782.3 EDEMA 01/02/2018 IBIS CAPPS MD Ot 840.4 SPRAIN ROTATOR CUFF 01/02/2018 IBIS CAPPS MD Ot E000.8 OTHER EXTERNAL CAUSE STATUS 01/02/2018 IBIS CAPPS MD Ot E928.9 ACCIDENT NOS 01/02/2018 IBIS CAPPS MD Ot V72.63 PRE-PROCEDURAL LABORATORY EXAMINATION 01/02/2018 IBIS ACPPS MD Ot V74.8 SCREEN-BACTERIAL DIS NEC 01/02/2018 BALBIR BONILLA MD Ot 272.0 PURE HYPERCHOLESTEROLEM 01/02/2018 BALBIR BONILLA MD Ot 530.81 ESOPHAGEAL REFLUX 01/02/2018 BALBIR BONILLA MD Ot E66.01 MORBID (SEVERE) OBESITY DUE TO EXCESS CA 01/02/2018 BALBIR BONILLA MD, Ot Z01.81 2 ENCOUNTER FOR PREPROCEDURAL LABORATORY E 01/02/2018 BALBIR BONILLA MD, Ot Z11.2 ENCOUNTER FOR SCREENING FOR OTHER BACTER 01/02/2018 BALBIR BONILLA MD, Ot Z68.43 BODY MASS INDEX (BMI) 50-59.9 , ADULT 01/02/2018 JESSICA DUKES MD, Ot Z12. 31 ENCNTR SCREEN MAMMOGRAM FOR MALIGNANT NE 01/02/2018 JESSICA DUKES MD Ot L65. 9 NONSCARRING HAIR LOSS, UNSPECIFIED 01/02/2018 JESSICA DUKES MD Ot R53. 81 OTHER MALAISE 01/02/2018 JESSICA DUKES MD Ot R53. 83 OTHER FATIGUE 01/02/2018 JESSICA DUKES MD Ot N63 UNSPECIFIED LUMP IN BREAST 01/02/2018 JESSICA DUKES MD Ot M41. 86 OTHER FORMS OF SCOLIOSIS, LUMBAR REGION 01/02/2018 JESSICA DUKES MD Ot M46. 87 OTH INFLAMMATORY SPONDYLOPATHIES, LUMBOS 01/02/2018 JESSICA DUKES MD Ot M51. 37 OTHER INTERVERTEBRAL DISC DEGENERATION, 03/05/2018 ARCHANA GREENWOOD, JORDY Adamson Ot 401.9 HYPERTENSION NOS 03/05/2018 JORDY MAGAÑA MD Ot 782.3 EDEMA 03/05/2018 IBIS CAPPS MD Ot 840.4 SPRAIN ROTATOR CUFF 03/05/2018 IBIS CAPPS MD Ot E000.8 OTHER EXTERNAL CAUSE STATUS 03/05/2018 IBIS CAPPS MD Ot E928.9 ACCIDENT NOS 03/05/2018 IBIS CAPPS MD Ot V72.63 PRE-PROCEDURAL LABORATORY EXAMINATION 03/05/2018 IBIS CAPPS MD Ot V74.8 SCREEN-BACTERIAL DIS NEC 03/05/2018 BALBIR BONILLA MD Ot 272.0 PURE HYPERCHOLESTEROLEM 03/05/2018 BALBIR BONILLA MD Ot 530.81 ESOPHAGEAL REFLUX 03/05/2018 BALBIR BONILLA MD Ot E66.01 MORBID (SEVERE) OBESITY DUE TO EXCESS CA 03/05/2018 BALBIR BONILLA MD Ot Z01.81 2 ENCOUNTER FOR PREPROCEDURAL LABORATORY E 03/05/2018 BALBIR BONILLA MD, Ot Z11.2 ENCOUNTER FOR SCREENING FOR OTHER BACTER 03/05/2018 BALBIR BONILLA MD, Ot Z68.43 BODY MASS INDEX (BMI) 50-59.9 , ADULT 03/05/2018 JESSICA DUKES MD Ot Z12. 31 ENCNTR SCREEN MAMMOGRAM FOR MALIGNANT NE 03/05/2018 JESSICA DUKES MD, Ot L65. 9 NONSCARRING HAIR LOSS, UNSPECIFIED 03/05/2018 JESSICA DUKES MD, Ot R53. 81 OTHER MALAISE 03/05/2018 JESSICA DUKES MD, Ot R53. 83 OTHER FATIGUE 03/05/2018 JESSICA DUKES MD, Ot N63 UNSPECIFIED LUMP IN BREAST 03/05/2018 JESSICA DUKES MD Ot M41. 86 OTHER FORMS OF SCOLIOSIS, LUMBAR REGION 03/05/2018 JESSICA DUKES MD Ot M46. 87 OTH INFLAMMATORY SPONDYLOPATHIES, LUMBOS 03/05/2018 JESSICA DUKES MD Ot M51. 37 OTHER INTERVERTEBRAL DISC DEGENERATION, 06/05/2018 IBIS CAPPS MD Ot 840.4 SPRAIN ROTATOR CUFF 06/05/2018 IBIS CAPPS MD Ot E000.8 OTHER EXTERNAL CAUSE STATUS 06/05/2018 IBIS CAPPS MD Ot E928.9 ACCIDENT NOS 06/05/2018 IBIS CAPPS MD Ot V72.63 PRE-PROCEDURAL LABORATORY EXAMINATION 06/05/2018 IBIS CAPPS MD Ot V74.8 SCREEN-BACTERIAL DIS NEC 06/05/2018 BALBIR BONILLA MD Ot 272.0 PURE HYPERCHOLESTEROLEM 06/05/2018 BALBIR BONILLA MD Ot 530.81 ESOPHAGEAL REFLUX 06/05/2018 BALBIR BONILLA MD Ot E66.01 MORBID (SEVERE) OBESITY DUE TO EXCESS CA 06/05/2018 BALBIR BONILLA MD Ot Z01.81 2 ENCOUNTER FOR PREPROCEDURAL LABORATORY E 06/05/2018 BALBIR BONILLA MD Ot Z11.2 ENCOUNTER FOR SCREENING FOR OTHER BACTER 06/05/2018 BALBIR BONILLA MD Ot Z68.43 BODY MASS INDEX (BMI) 50-59.9 , ADULT 06/05/2018 JESSICA DUKES MD Ot Z12. 31 ENCNTR SCREEN MAMMOGRAM FOR MALIGNANT NE 06/05/2018 JESSICA DUKES MD Ot L65. 9 NONSCARRING HAIR LOSS, UNSPECIFIED 06/05/2018 JESSICA DUKES MD Ot R53. 81 OTHER MALAISE 06/05/2018 JESSICA DUKES MD Ot R53. 83 OTHER FATIGUE 06/05/2018 ERNST MD, JESSICA J Ot N63 UNSPECIFIED LUMP IN BREAST 06/05/2018 JESSICA DUKES MD, Ot M41. 86 OTHER FORMS OF SCOLIOSIS, LUMBAR REGION 06/05/2018 JESSICA DUKES MD Ot M46. 87 OT INFLAMMATORY SPONDYLOPATHIES, LUMBOS 06/05/2018 JESSICA DUKES MD Ot M51. 37 OTHER INTERVERTEBRAL DISC DEGENERATION, 06/05/2018 IBIS CAPPS MD Ot 840.4 SPRAIN ROTATOR CUFF 06/05/2018 IBIS CAPPS MD Ot E000.8 OTHER EXTERNAL CAUSE STATUS 06/05/2018 IBIS CAPPS MD Ot E928.9 ACCIDENT NOS 06/05/2018 IBIS CAPPS MD Ot V72.63 PRE-PROCEDURAL LABORATORY EXAMINATION 06/05/2018 IBIS CAPPS MD Ot V74.8 SCREEN-BACTERIAL DIS NEC 06/05/2018 BALBIR BONILLA MD Ot 272.0 PURE HYPERCHOLESTEROLEM 06/05/2018 BALBIR BONILLA MD Ot 530.81 ESOPHAGEAL REFLUX 06/05/2018 BALBIR BONILLA MD Ot E66.01 MORBID (SEVERE) OBESITY DUE TO EXCESS CA 06/05/2018 BALBIR BONILLA MD Ot Z01.81 2 ENCOUNTER FOR PREPROCEDURAL LABORATORY E 06/05/2018 BALBIR BONILLA MD Ot Z11.2 ENCOUNTER FOR SCREENING FOR OTHER BACTER 06/05/2018 BALBIR BONILLA MD Ot Z68.43 BODY MASS INDEX (BMI) 50-59.9 , ADULT 06/05/2018 JESSICA DUKES MD Ot Z12. 31 ENCNTR SCREEN MAMMOGRAM FOR MALIGNANT NE 06/05/2018 JESSICA DUKES MD Ot L65. 9 NONSCARRING HAIR LOSS, UNSPECIFIED 06/05/2018 JESSICA DUKES MD Ot R53. 81 OTHER MALAISE 06/05/2018 JESSICA DUKES MD Ot R53. 83 OTHER FATIGUE 06/05/2018 JESSICA DUKES MD Ot N63 UNSPECIFIED LUMP IN BREAST 06/05/2018 JESSICA DUKES MD Ot M41. 86 OTHER FORMS OF SCOLIOSIS, LUMBAR REGION 06/05/2018 JESSICA DUKES MD, Ot M46. 87 OT INFLAMMATORY SPONDYLOPATHIES, LUMBOS 06/05/2018 JESSICA DUKES MD, Ot M51. 37 OTHER INTERVERTEBRAL DISC DEGENERATION, 06/05/2018 IBIS CAPPS MD Ot 840.4 SPRAIN ROTATOR CUFF 06/05/2018 IBIS CAPPS MD Ot E000.8 OTHER EXTERNAL CAUSE STATUS 06/05/2018 IBIS CAPPS MD Ot E928.9 ACCIDENT NOS 06/05/2018 IBIS CAPPS MD Ot V72.63 PRE-PROCEDURAL LABORATORY EXAMINATION 06/05/2018 IBIS CAPPS MD Ot V74.8 SCREEN-BACTERIAL DIS NEC 06/05/2018 BALBIR BONILLA MD Ot 272.0 PURE HYPERCHOLESTEROLEM 06/05/2018 BALBIR BONILLA MD Ot 530.81 ESOPHAGEAL REFLUX 06/05/2018 BALBIR BONILLA MD Ot E66.01 MORBID (SEVERE) OBESITY DUE TO EXCESS CA 06/05/2018 BALBIR BONILLA MD Ot Z01.81 2 ENCOUNTER FOR PREPROCEDURAL LABORATORY E 06/05/2018 BALBIR BONILLA MD, Ot Z11.2 ENCOUNTER FOR SCREENING FOR OTHER BACTER 06/05/2018 BALBIR BONILLA MD Ot Z68.43 BODY MASS INDEX (BMI) 50-59.9 , ADULT 06/05/2018 JESSICA DUKES MD Ot Z12. 31 ENCNTR SCREEN MAMMOGRAM FOR MALIGNANT NE 06/05/2018 JESSICA DUKES MD Ot L65. 9 NONSCARRING HAIR LOSS, UNSPECIFIED 06/05/2018 JESSICA DUKES MD Ot R53. 81 OTHER MALAISE 06/05/2018 JESSICA DUKES MD Ot R53. 83 OTHER FATIGUE 06/05/2018 JESSICA DUKES MD Ot N63 UNSPECIFIED LUMP IN BREAST 06/05/2018 JESSICA DUKES MD Ot M41. 86 OTHER FORMS OF SCOLIOSIS, LUMBAR REGION 06/05/2018 JESSICA DUKES MD Ot M46. 87 OTH INFLAMMATORY SPONDYLOPATHIES, LUMBOS 06/05/2018 JESSICA DUKES MD Ot M51. 37 OTHER INTERVERTEBRAL DISC DEGENERATION, 07/16/2018 IBIS CAPPS MD Ot 840.4 SPRAIN ROTATOR CUFF 07/16/2018 IBIS CAPPS MD Ot E000.8 OTHER EXTERNAL CAUSE STATUS 07/16/2018 IBIS CAPPS MD, Ot E928.9 ACCIDENT NOS 07/16/2018 IBIS CAPPS MD Ot V72.63 PRE-PROCEDURAL LABORATORY EXAMINATION 07/16/2018 IBIS CAPPS MD Ot V74.8 SCREEN-BACTERIAL DIS NEC 07/16/2018 BALBIR BONILLA MD Ot 272.0 PURE HYPERCHOLESTEROLEM 07/16/2018 BALBIR BONILLA MD Ot 530.81 ESOPHAGEAL REFLUX 07/16/2018 BALBIR BONILLA MD Ot E66.01 MORBID (SEVERE) OBESITY DUE TO EXCESS CA 07/16/2018 BALBIR BONILLA MD, Ot Z01.81 2 ENCOUNTER FOR PREPROCEDURAL LABORATORY E 07/16/2018 BALBIR BONILLA MD, Ot Z11.2 ENCOUNTER FOR SCREENING FOR OTHER BACTER 07/16/2018 BALBIR BONILLA MD, Ot Z68.43 BODY MASS INDEX (BMI) 50-59.9 , ADULT 07/16/2018 JESSICA DUKES MD, Ot Z12. 31 ENCNTR SCREEN MAMMOGRAM FOR MALIGNANT NE 07/16/2018 JESSICA DUKES MD, Ot L65. 9 NONSCARRING HAIR LOSS, UNSPECIFIED 07/16/2018 JESSICA DUKES MD Ot R53. 81 OTHER MALAISE 07/16/2018 JESSICA DUKES MD Ot R53. 83 OTHER FATIGUE 07/16/2018 JESSICA DUKES MD Ot N63 UNSPECIFIED LUMP IN BREAST 07/16/2018 JESSICA DUKES MD Ot M41. 86 OTHER FORMS OF SCOLIOSIS, LUMBAR REGION 07/16/2018 JESSICA DUKES MD Ot M46. 87 OTH INFLAMMATORY SPONDYLOPATHIES, LUMBOS 07/16/2018 JESSICA DUKES MD Ot M51. 37 OTHER INTERVERTEBRAL DISC DEGENERATION, 07/23/2018 JESSICA DUKES MD, Ot Z00. 00 ENCNTR FOR GENERAL ADULT MEDICAL EXAM W/ 07/23/2018 JESSICA DUKES MD, Ot Z12. 31 ENCNTR SCREEN MAMMOGRAM FOR MALIGNANT NE 11/05/2018 IBIS CAPPS MD Ot 840.4 SPRAIN ROTATOR CUFF 11/05/2018 IBIS CAPPS MD Ot E000.8 OTHER EXTERNAL CAUSE STATUS 11/05/2018 IBIS CAPPS MD, Ot E928.9 ACCIDENT NOS 11/05/2018 IBIS CAPPS MD, Ot V72.63 PRE-PROCEDURAL LABORATORY EXAMINATION 11/05/2018 IBIS CAPPS MD Ot V74.8 SCREEN-BACTERIAL DIS NEC 11/05/2018 BALBIR BONILLA MD Ot 272.0 PURE HYPERCHOLESTEROLEM 11/05/2018 BALBIR BONILLA MD Ot 530.81 ESOPHAGEAL REFLUX 11/05/2018 BALBIR BONILLA MD, Ot E66.01 MORBID (SEVERE) OBESITY DUE TO EXCESS CA 11/05/2018 BALBIR BONILLA MD, Ot Z01.81 2 ENCOUNTER FOR PREPROCEDURAL LABORATORY E 11/05/2018 BALBIR BONILLA MD, Ot Z11.2 ENCOUNTER FOR SCREENING FOR OTHER BACTER 11/05/2018 BALBIR BONILLA MD, Ot Z68.43 BODY MASS INDEX (BMI) 50-59.9 , ADULT 11/05/2018 JESSICA DUKES MD, Ot Z12. 31 ENCNTR SCREEN MAMMOGRAM FOR MALIGNANT NE 11/05/2018 JESSICA DUKES MD Ot L65. 9 NONSCARRING HAIR LOSS, UNSPECIFIED 11/05/2018 JESSICA DUKES MD Ot R53. 81 OTHER MALAISE 11/05/2018 JESSICA DUKES MD Ot R53. 83 OTHER FATIGUE 11/05/2018 JESSICA DUKES MD Ot N63 UNSPECIFIED LUMP IN BREAST 11/05/2018 JESSICA DUKES MD Ot M41. 86 OTHER FORMS OF SCOLIOSIS, LUMBAR REGION 11/05/2018 JESSICA DUKES MD Ot M46. 87 OTH INFLAMMATORY SPONDYLOPATHIES, LUMBOS 11/05/2018 JESSICA UDKES MD Ot M51. 37 OTHER INTERVERTEBRAL DISC DEGENERATION, 11/05/2018 JESSICA DUKES MD Ot Z00. 00 ENCNTR FOR GENERAL ADULT MEDICAL EXAM W/ 11/05/2018 JESSICA DUKES MD, Ot Z12. 31 ENCNTR SCREEN MAMMOGRAM FOR MALIGNANT NE 04/20/2019 IBIS CAPPS MD Ot 840.4 SPRAIN ROTATOR CUFF 04/20/2019 IBIS CAPPS MD Ot E000.8 OTHER EXTERNAL CAUSE STATUS 04/20/2019 IBIS CAPPS MD, Ot E928.9 ACCIDENT NOS 04/20/2019 JEFRY GREENWOOD, IBIS Arias Ot V72.63 PRE-PROCEDURAL LABORATORY EXAMINATION 04/20/2019 IBIS CAPPS MD Ot V74.8 SCREEN-BACTERIAL DIS NEC 04/20/2019 BALBIR BONILLA MD Ot 272.0 PURE HYPERCHOLESTEROLEM 04/20/2019 BALBIR BONILLA MD Ot 530.81 ESOPHAGEAL REFLUX 04/20/2019 BALBIR BONILLA MD, Ot E66.01 MORBID (SEVERE) OBESITY DUE TO EXCESS CA 04/20/2019 BALBIR BONILLA MD Ot Z01.81 2 ENCOUNTER FOR PREPROCEDURAL LABORATORY E 04/20/2019 BALBIR BONILLA MD, Ot Z11.2 ENCOUNTER FOR SCREENING FOR OTHER BACTER 04/20/2019 BALBIR BONILLA MD, Ot Z68.43 BODY MASS INDEX (BMI) 50-59.9 , ADULT 04/20/2019 JESSICA DUKES MD, Ot Z12. 31 ENCNTR SCREEN MAMMOGRAM FOR MALIGNANT NE 04/20/2019 JESSICA DUKES MD Ot L65. 9 NONSCARRING HAIR LOSS, UNSPECIFIED 04/20/2019 JESSICA DUKES MD Ot R53. 81 OTHER MALAISE 04/20/2019 JESSICA DUKES MD, Ot R53. 83 OTHER FATIGUE 04/20/2019 JESSICA DUKES MD Ot N63 UNSPECIFIED LUMP IN BREAST 04/20/2019 JESSICA DUKES MD, Ot M41. 86 OTHER FORMS OF SCOLIOSIS, LUMBAR REGION 04/20/2019 JESSICA DUKES MD, Ot M46. 87 OTH INFLAMMATORY SPONDYLOPATHIES, LUMBOS 04/20/2019 JESSICA DUKES MD, Ot M51. 37 OTHER INTERVERTEBRAL DISC DEGENERATION, 04/20/2019 JESSICA DUKES MD, Ot Z00. 00 ENCNTR FOR GENERAL ADULT MEDICAL EXAM W/ 04/20/2019 JESSICA DUKES MD, Ot Z12. 31 ENCNTR SCREEN MAMMOGRAM FOR MALIGNANT NE 04/22/2019 JESSICA DUKES MD, Ot M79.672 PAIN IN LEFT FOOT 05/14/2019 IBIS CAPPS MD Ot Z01.818 ENCOUNTER FOR OTHER PREPROCEDURAL EXAMIN 05/15/2019 IBIS CAPPS MD Ot Z01.818 ENCOUNTER FOR OTHER PREPROCEDURAL EXAMIN Procedures Code Description Performed By Per formed On 80.96 03/20/2010 37.22 03/21/2010 88.53 03/21/2010 88.56 03/21/2010 55738 MAMM OGRAM, SCREENING 10/09/2012 Physical P hysical Therapy, [facility] 12/18/2012 82991 MRI EXTREMITY JOINT, UPPER LEFT, W/O CONTRAST 04/15/2013 30055 [facility] 06/30/2013 08143 XRAY SHOULDER LEFT COMP 2 VIEWS 07/08/2013 58457 JOIN T INJECTION- INTERMEDIATE JOINT 07/09/2013 84418 [facility] 02/12/2014 85545 [facility] 02/20/2014 [id number] EX CISION OF STOMACH, PERCUTANEOUS ENDOSC 12/16/2014 Results Test Result Range Complete blood count (CBC) with automate d white blood cell (WBC) differential - 04/22/17 06:20 Blood leukocytes automated count (number/volume) 6.3 10*3/uL 4.3-11.0 Blood erythrocytes automated count (number/volume) 4.66 10*6/uL 4.35-5.85 Venous blood hemoglobin measurement (mass/volume) 14.2 g/dL 11.5-16.0 Blood hematocrit (volume fraction) 42 % 35-52 Automated erythrocyte mean corpuscular volume 90 [ foz_us] 80-99 Automated erythrocyte mean corpuscular h emoglobin (mass per erythrocyte) 31 pg 25-34 Automated erythrocyte mean corpuscular h emoglobin concentration measurement (mass/volume) 34 g/dL 32-36 Automated erythrocyte distribution width ratio 12. 8 % 10.0- 14.5 Automated blood platelet count (count/volume) 121 10*3/uL [...] 10*3 1.0-4.0 Blood monocytes automated count (number/volume) 0. 4 10*3 0.0-1.0 Automated eosinophil count 0.0 10*3/uL 0 .0-0.3 Automated blood basophil count (count/volume) 0.0 10*3/uL 0.0-0.1 Comprehensive metabolic panel - 04/22/17 06:20 Serum or plasma sodium measurement (moles/volume) 140 mmol/L 135-145 Serum or plasma potassium measurement (moles/volume) 4.1 mmol/L 3.6-5.0 Serum or plasma chloride measurement (moles/volume) 105 mmol/L 98-107 Carbon dioxide 23 mmol/L 21-32 Serum or plasma anion gap determination (moles/volume) 12 mmol/L 5-14 Serum or plasma urea nitrogen measurement (mass/volume ) 13 mg/dL 7-18 Serum or plasma creatinine measurement (mass/volume) 0.77 mg/dL 0.60-1.30 Serum or plasma urea nitrogen/creatinine mass ratio 17 NRG Serum or plasma creatinine measurement w ith calculation of estimated glomerular filtration rate > NRG Serum or plasma glucose measurement (mass/volume) 151 mg/dL 70-105 Serum or plasma calcium measurement (mass/volume) 8.7 mg/dL 8.5-10.1 Serum or plasma total bilirubin measurement (mass/volu me) 1.1 mg/dL 0.1-1.0 Serum or plasma alkaline phosphatase mika surement (enzymatic activity/volume) 112 U/L 40-136 Serum or plasma aspartate aminotransfera se measurement (enzymatic activity/volume) 27 U/L 5-34 Serum or plasma alanine aminotransferase measurement (enzymatic activity/volume) 19 U/L 0-55 Serum or plasma protein measurement (mass/volume) 7.1 g/dL 6.4-8.2 Serum or plasma albumin measurement (mass/volume) 4.0 g/dL 3.2-4.5 Serum or plasma lithium measurement (mol es/volume) - 04/22/17 06:20 BNP level 183.7 pg/mL <100.0 Influenza virus A and B antigen detectio n - 04/23/17 21:30 FLU RESULT NEGATIVE FOR INFLUENZA A AND B ANTIGENS BY IA NRG Complete blood count (CBC) with automate d white blood cell (WBC) differential - 04/24/17 05:09 Blood leukocytes automated count (number/volume) 7.9 10*3/uL 4.3-11.0 Blood erythrocytes automated count (number/volume) 4.03 10*6/uL 4.35-5.85 Venous blood hemoglobin measurement (mass/volume) 12.1 g/dL 11.5-16.0 Blood hematocrit (volume fraction) 36 % 35-52 Automated erythrocyte mean corpuscular volume 89 [ foz_us] 80-99 Automated erythrocyte mean corpuscular h emoglobin (mass per erythrocyte) 30 pg 25-34 Automated erythrocyte mean corpuscular h emoglobin concentration measurement (mass/volume) 34 g/dL 32-36 Automated erythrocyte distribution width ratio 13. 0 % 10.0- 14.5 Automated blood platelet count (count/volume) 109 10*3/uL [...] 10*3 1.0-4.0 Blood monocytes automated count (number/volume) 0. 6 10*3 0.0-1.0 Automated eosinophil count 0.0 10*3/uL 0 .0-0.3 Automated blood basophil count (count/volume) 0.0 10*3/uL 0.0-0.1 Comprehensive metabolic panel - 04/24/17 05:09 Serum or plasma sodium measurement (moles/volume) 138 mmol/L 135-145 Serum or plasma potassium measurement (moles/volume) 3.1 mmol/L 3.6-5.0 Serum or plasma chloride measurement (moles/volume) 104 mmol/L 98-107 Carbon dioxide 23 mmol/L 21-32 Serum or plasma anion gap determination (moles/volume) 11 mmol/L 5-14 Serum or plasma urea nitrogen measurement (mass/volume ) 13 mg/dL 7-18 Serum or plasma creatinine measurement (mass/volume) 0.68 mg/dL 0.60-1.30 Serum or plasma urea nitrogen/creatinine mass ratio 19 NRG Serum or plasma creatinine measurement w ith calculation of estimated glomerular filtration rate > NRG Serum or plasma glucose measurement (mass/volume) 161 mg/dL 70-105 Serum or plasma calcium measurement (mass/volume) 8.1 mg/dL 8.5-10.1 Serum or plasma total bilirubin measurement (mass/volu me) 0.9 mg/dL 0.1-1.0 Serum or plasma alkaline phosphatase mika surement (enzymatic activity/volume) 84 U/L 40-136 Serum or plasma aspartate aminotransfera se measurement (enzymatic activity/volume) 33 U/L 5-34 Serum or plasma alanine aminotransferase measurement (enzymatic activity/volume) 18 U/L 0-55 Serum or plasma protein measurement (mass/volume) 6.4 g/dL 6.4-8.2 Serum or plasma albumin measurement (mass/volume) 3.6 g/dL 3.2-4.5 Complete blood count (CBC) with automate d white blood cell (WBC) differential - 11/19/17 13:05 Blood leukocytes automated count (number/volume) 7.5 10*3/uL 4.3-11.0 Blood erythrocytes automated count (number/volume) 4.85 10*6/uL 4.35-5.85 Venous blood hemoglobin measurement (mass/volume) 14.4 g/dL 11.5-16.0 Blood hematocrit (volume fraction) 42 % 35-52 Automated erythrocyte mean corpuscular volume 87 [ foz_us] 80-99 Automated erythrocyte mean corpuscular h emoglobin (mass per erythrocyte) 30 pg 25-34 Automated erythrocyte mean corpuscular h emoglobin concentration measurement (mass/volume) 34 g/dL 32-36 Automated erythrocyte distribution width ratio 13. 4 % 10.0- 14.5 Automated blood platelet count (count/volume) 181 10*3/uL 130-400 Automated blood platelet mean volume measurement 10.8 [foz_us] 7.4-10.4 Automated blood neutrophils/100 leukocytes 68 % 42-75 Automated blood lymphocytes/100 leukocytes 23 % 12-44 Blood monocytes/100 leukocytes 7 % 0-12 Automated blood eosinophils/100 leukocytes 3 % 0-10 Automated blood basophils/100 leukocytes 0 % 0-10 Blood neutrophils automated count (number/volume) 5.1 10*3 1.8-7.8 Blood lymphocytes automated count (number/volume) 1.7 10*3 1.0-4.0 Blood monocytes automated count (number/volume) 0. 5 10*3 0.0-1.0 Automated eosinophil count 0.2 10*3/uL 0 .0-0.3 Automated blood basophil count (count/volume) 0.0 10*3/uL 0.0-0.1 Complete urinalysis with reflex to cultu re - 11/19/17 13:05 Urine color determination YELLOW NRG Urine clarity determination CLEAR NR G Urine pH measurement by test strip 7 5-9 Specific gravity of urine by test strip 1.010 1.016-1.022 Urine protein assay by test strip, semi-quantitative NEGATIVE NEGATIVE Urine glucose detection by automated test strip NE GATIVE NEGATIVE Erythrocytes detection in urine sediment by light micr oscopy NEGATIVE NEGATIVE Urine ketones detection by automated test strip NE GATIVE NEGATIVE Urine nitrite detection by test strip NEGATIVE NEGATIVE Urine total bilirubin detection by test strip NEGA TIVE NEGATIVE Urine urobilinogen measurement by automated test strip (mass/volume) NORMAL NORMAL Urine leukocyte esterase detection by dipstick 3+ NEGATIVE Automated urine sediment erythrocyte cou nt by microscopy (number/high power field) RARE NRG Automated urine sediment leukocyte count by microscopy (number/high power field) [HPF] NRG Bacteria detection in urine sediment by light microsco py FEW NRG Squamous epithelial cells detection in u rine sediment by light microscopy 5-10 NRG Crystals detection in urine sediment by light microsco py NONE NRG Casts detection in urine sediment by light microscopy NONE NRG Mucus detection in urine sediment by light microscopy NEGATIVE NRG Complete urinalysis with reflex to culture YES NRG Comprehensive metabolic panel - 11/19/17 13:05 Serum or plasma sodium measurement (moles/volume) 142 mmol/L 135-145 Serum or plasma potassium measurement (moles/volume) 4.0 mmol/L 3.6-5.0 Serum or plasma chloride measurement (moles/volume) 106 mmol/L 98-107 Carbon dioxide 29 mmol/L 21-32 Serum or plasma anion gap determination (moles/volume) 7 mmol/L 5-14 Serum or plasma urea nitrogen measurement (mass/volume ) 16 mg/dL 7-18 Serum or plasma creatinine measurement (mass/volume) 0.75 mg/dL 0.60-1.30 Serum or plasma urea nitrogen/creatinine mass ratio 21 NRG Serum or plasma creatinine measurement w ith calculation of estimated glomerular filtration rate > NRG Serum or plasma glucose measurement (mass/volume) 102 mg/dL 70-105 Serum or plasma calcium measurement (mass/volume) 9.4 mg/dL 8.5-10.1 Serum or plasma total bilirubin measurement (mass/volu me) 0.7 mg/dL 0.1-1.0 Serum or plasma alkaline phosphatase mika surement (enzymatic activity/volume) 87 U/L 40-136 Serum or plasma aspartate aminotransfera se measurement (enzymatic activity/volume) 25 U/L 5-34 Serum or plasma alanine aminotransferase measurement (enzymatic activity/volume) 13 U/L 0-55 Serum or plasma protein measurement (mass/volume) 7.6 g/dL 6.4-8.2 Serum or plasma albumin measurement (mass/volume) 4.6 g/dL 3.2-4.5 Magnesium - 11/19/17 13:05 Magnesium 2.4 mg/dL 1.8-2.4 Serum or plasma C reactive protein measu rement (mass/volume) - 11/19/17 13:05 Serum or plasma C reactive protein measurement (mass/v olume) 0.35 mg/dL 0.00-0.50 Bacterial urine culture - 11/19/17 13:05 Bacterial urine culture SEE [facility] COLONY COUNT . [facility] Complete blood count (CBC) with automate d white blood cell (WBC) differential - 07/23/18 08:47 Blood leukocytes automated count (number/volume) 4.6 10*3/uL 4.3-11.0 Blood erythrocytes automated count (number/volume) 4.74 10*6/uL 4.35-5.85 Venous blood hemoglobin measurement (mass/volume) 13.9 g/dL 11.5-16.0 Blood hematocrit (volume fraction) 41 % 35-52 Automated erythrocyte mean corpuscular volume 87 [ foz_us] 80-99 Automated erythrocyte mean corpuscular h emoglobin (mass per erythrocyte) 29 pg 25-34 Automated erythrocyte mean corpuscular h emoglobin concentration measurement (mass/volume) 34 g/dL 32-36 Automated erythrocyte distribution width ratio 13. 5 % 10.0- 14.5 Automated blood platelet count (count/volume) 149 10*3/uL 130-400 Automated blood platelet mean volume measurement 11.3 [foz_us] 7.4-10.4 Automated blood neutrophils/100 leukocytes 54 % 42-75 Automated blood lymphocytes/100 leukocytes 34 % 12-44 Blood monocytes/100 leukocytes 7 % 0-12 Automated blood eosinophils/100 leukocytes 5 % 0-10 Automated blood basophils/100 leukocytes 0 % 0-10 Blood neutrophils automated count (number/volume) 2.5 10*3 1.8-7.8 Blood lymphocytes automated count (number/volume) 1.6 10*3 1.0-4.0 Blood monocytes automated count (number/volume) 0. 3 10*3 0.0-1.0 Automated eosinophil count 0.2 10*3/uL 0 .0-0.3 Automated blood basophil count (count/volume) 0.0 10*3/uL 0.0-0.1 Comprehensive metabolic panel - 07/23/18 08:47 Serum or plasma sodium measurement (moles/volume) 145 mmol/L 135-145 Serum or plasma potassium measurement (moles/volume) 3.8 mmol/L 3.6-5.0 Serum or plasma chloride measurement (moles/volume) 108 mmol/L 98-107 Carbon dioxide 26 mmol/L 21-32 Serum or plasma anion gap determination (moles/volume) 11 mmol/L 5-14 Serum or plasma urea nitrogen measurement (mass/volume ) 17 mg/dL 7-18 Serum or plasma creatinine measurement (mass/volume) 0.72 mg/dL 0.60-1.30 Serum or plasma urea nitrogen/creatinine mass ratio 24 NRG Serum or plasma creatinine measurement w ith calculation of estimated glomerular filtration rate > NRG Serum or plasma glucose measurement (mass/volume) 118 mg/dL 70-105 Serum or plasma calcium measurement (mass/volume) 9.2 mg/dL 8.5-10.1 Serum or plasma total bilirubin measurement (mass/volu me) 0.9 mg/dL 0.1-1.0 Serum or plasma alkaline phosphatase mika surement (enzymatic activity/volume) 84 U/L 40-136 Serum or plasma aspartate aminotransfera se measurement (enzymatic activity/volume) 19 U/L 5-34 Serum or plasma alanine aminotransferase measurement (enzymatic activity/volume) 11 U/L 0-55 Serum or plasma protein measurement (mass/volume) 6.7 g/dL 6.4-8.2 Serum or plasma albumin measurement (mass/volume) 4.1 g/dL 3.2-4.5 CALCIUM CORRECTED 9.1 mg/dL 8.5-10.1 Lipid 1996 panel - 07/23/18 08:47 Serum or plasma triglyceride measurement (mass/volume) 101 mg/dL <150 Serum or plasma cholesterol measurement (mass/volume) 174 mg/dL < 200 Serum or plasma cholesterol in HDL measurement (mass/v olume) 54 mg/dL 40-60 Cholesterol in LDL [mass/volume] in serum or plasma by direct assay 109 mg/dL 1-129 Serum or plasma cholesterol in VLDL measurement (mass/ volume) 20 mg/dL 5-40 THYROID STIMULATING HORMONE - 07/23/18 0 8:47 THYROID STIMULATING HORMONE 1.32 u[iU]/mL 0.35-4.94 Encounters ACCT No. Visit Date/Time Discharge Status Pt. Type Provider Facility Loc./Unit Complaint [id number] 05/12/2014 15:52:00 05/12/2014 23:59: 59 CLS Outpatient SHARDA ASCENCIO APRN [id number] 02/20/2014 12:28:00 02/20/2014 23:59: 59 CLS Outpatient SHARDA ASCENCIO APRN [id number] 02/12/2014 08:00:00 02/12/2014 23:59: 59 CLS Outpatient SHARDA ASCENCIO APRN [id number] 11/03/2013 13:31:00 11/03/2013 23:59: 59 CLS Outpatient SHARDA ASCENCIO APRN [id number] 07/23/2013 15:58:00 07/23/2013 23:59: 59 CLS Outpatient JAM DEL REAL DO [id number] 07/09/2013 16:12:00 07/09/2013 23:59: 59 CLS Outpatient JAM DEL REAL DO [id number] 04/15/2013 15:37:00 04/15/2013 23:59: 59 CLS Outpatient JORDY MAGAÑA MD [id number] 12/18/2012 16:46:00 12/18/2012 23:59: 59 CLS Outpatient JORDY MAGAÑA MD [id number] 10/09/2012 15:53:00 10/09/2012 23:59: 59 CLS Outpatient ARCHANA GREENWOOD, JORDY Adamson [id number] 05/14/2019 11:32:00 14:53:00 DIS Outpatient JEFRY GREENWOOD, IBIS Arias [facility] PREOP LEFT 5TH METATARSAL FR ACTURE [id number] 04/20/2019 11:18:00 23:59:59 CLS Outpatient JESSICA DUKES MD [facility] RAD L FOOT PAIN [id number] 07/23/2018 08:36:00 23:59:59 CLS Outpatient JESSICA DUKES MD [facility] RAD SCREENING [id number] 11/28/2017 19:10:00 23:59:59 CLS Outpatient JESSICA DUKES MD [facility] RAD LBP-PERSISTENT [id number] 11/19/2017 12:50:00 018 15:32:00 DIS Emergency LINDEN MAX MD [facility] ER R SIDE ABD PAIN [id number] 04/23/2017 14:20:00 018 11:15:00 DIS Inpatient JESSICA DUKES MD [facility] 4TH DEHYDRATION AND BRONCHI TIS [id number] 04/22/2017 05:59:00 018 07:31:00 DIS Emergency LINDEN MAX MD [facility] ER FEVER 102 SOB [id number] 06/28/2015 08:12:00 016 23:59:59 CLS Outpatient JESSICA DUKES MD [facility] RAD BILAT BREAST NODULE [id number] 05/25/2015 15:08:00 016 23:59:59 CLS Outpatient JESSICA DUKES MD [facility] RAD SCREENING [id number] 05/25/2015 06:38:00 016 23:59:59 CLS Outpatient JESSICA DUKES MD [facility] LAB FATIGUE,MALAISE,ALOPECI A [id number] 12/16/2014 07:25:00 12:50:00 DIS Inpatient BALBIR BONILLA MD [facility] 4TH MORBID OBESITY [id number] 12/08/2014 09:56:00 23:59:59 CLS Outpatient BALBIR BONILLA MD [facility] PREOP MORBID OBESITY [id number] 09/22/2014 14:41:00 23:59:59 CLS Outpatient CASH KIRBY [facility] QUICK [id number] 09/01/2014 08:41:00 23:59:59 CLS Outpatient BALBIR BONILLA MD [facility] RAD REFLUX,T CHOL [id number] 03/24/2014 11:23:00 11:08:00 DIS Outpatient SEJAL THOMSON [facility] REHAB L SHOULDER SCOPE BICEP TENOTOMY CHONDROPLASTY [id number] 03/03/2014 08:36:00 14:45:00 DIS Outpatient IBIS CAPPS MD [facility] LEFT SHOULDER TORN ROT ATOR CUFF [id number] 03/01/2014 14:33:00 23:59:59 CLS Outpatient IBIS CAPPS MD [facility] PREOP LEFT SHOULDER TORN ROT ATOR CUFF [id number] 02/20/2013 15:56:00 014 16:52:00 DIS Outpatient JORDY MAGAÑA MD [facility] REHAB L SHOULDER PAIN [id number] 10/13/2012 06:52:00 013 23:59:59 CLS Outpatient JORDY MAGAÑA MD [facility] LAB EDEMA,HYPERTENS ION [id number] 08/06/2012 11:19:00 013 23:59:59 CLS Outpatient [id number] 05/20/2019 08:00:00 P EN Preadmit IBIS CAPPS MD [facility] LEFT 5TH METATARSAL FRACTURE [id number] 07/28/2014 16:43:00 Document Registration [id number] 07/28/2014 16:42:00 Document Registration [id number] 07/28/2014 16:42:00 Document Registration [id number] 07/28/2014 16:42:00 Document Registration [id number] 07/28/2014 16:42:00 Document Registration [id number] 12/18/2011 16:11:00 Document Registration [id number] 05/25/2011 06:47:00 Document Registration [id number] 07/26/2010 09:44:00 Document Registration [id number] 03/20/2010 09:40:00 Document Registration [id number] 03/17/2010 10:22:00 Document Registration [id number] 03/03/2010 11:02:00 Document Registration [id number] 11/25/2009 09:47:00 Document Registration [id number] 08/30/2009 11:55:00 Document Registration [id number] 02/21/2009 15:56:00 Document Registration 09/19/09 08/19/2018 12:21:09 08/19/2018 23:59 :59 CLS Outpatient
[2019-05-20] MEDS ORDERED: CLINDAMYCIN 600 MG/50 ML IVPB 50 ML IV ONE (07:00)
[2019-05-20] MEDS ORDERED: ONDANSETRON 4 MG/2 ML (SDV) Z0FRAN ONE (07:05)
[2019-05-20] MEDS ORDERED: GLYCOPYRROLATE 0.2 MG/ML (ROBINUL) 2 ML VIAL ONE (07:05)
[2019-05-20] MEDS ORDERED: ROCURONIUM 10 MG/ML 5 ML SYRINGE IV ONE (07:05)
[2019-05-20] MEDS ORDERED: fentaNYL INJECTION 100 MCG/2 ML AMP ONE (07:05)
[2019-05-20] MEDS ORDERED: LIDOCAINE PF 2% 5 ML (XYLOCAINE) VIAL ONE (07:05)
[2019-05-20] MEDS ORDERED: SEVOFLURANE (ULTANE) 15 ML INHAL SOLN ONE (07:05)
[2019-05-20] MEDS ORDERED: MIDAZOLAM 2 MG/2 ML (VERSED) VIAL ONE (07:05)
[2019-05-20] MEDS ORDERED: NEOSTIGMINE 3 MG/3 ML VIAL ONE (07:05)
[2019-05-20] MEDS ORDERED: proPOfol 200 MG/20 ML (DIPRIVAN) VIAL IV ONE (07:05)
[2019-05-20] MEDS ORDERED: BUPIVACAINE 0.5% 30 ML (SENSORCAINE) VIAL ONE (07:23)
--- NOTE | 2019-05-20 07:25 | Progress Note-Pre Operative ---
Pre-Operative Progress Note H&P Reviewed The H&P was reviewed, patient examined and no changes noted. Date Seen by Provider: May 20, 2019 Time Seen by Provider: 07:20 Date H&P Reviewed: May 20, 2019 Time H&P Reviewed: 07:11 Pre-Operative Diagnosis: left fifth metatarsal fracture (Miller type) IBIS CAPPS MD May 20, 2019 07:25
--- NOTE | 2019-05-20 07:26 | Progress Note-Post Operative ---
Post-Operative Progess Note Surgeon (s)/Platinum And Palladium Kettle Tender (s) Surgeon IBIS CAPPS MD Platinum And Palladium Kettle Tender: Yossi Mulligan Pre-Operative Diagnosis left fifth metatarsal fracture (Miller type) Post-Operative Diagnosis left fifth metatarsal fracture (Miller type) Procedure & Operative Findings Date of Procedure 05/20/19 Procedure Performed/Findings open reduction and internal fixation of the left fifth metatarsal Anesthesia Type GETA Estimated Blood Loss Estimated blood loss (mL): minimal Specimens/Packing Specimens Removed none Packing: none IBIS CAPPS MD May 20, 2019 07:26
[2019-05-20] MEDS ORDERED: CATHETER FLUSH 10 ML SYR IV PRN (07:30)
[2019-05-20] MEDS ORDERED: morphine INJ 10 MG/ML 1ML (SYR OR VIAL) ONE (08:38)
[2019-05-20] MEDS ORDERED: HYDROmorphone 2 MG/ML VIAL (DILAUDID) IV ONE (08:45)
[2019-05-20] MEDS ORDERED: ONDANSETRON 4 MG/2 ML (SDV) Z0FRAN IVP PRN (08:45)
[2019-05-20] MEDS ORDERED: morphine INJ 10 MG/ML 1ML (SYR OR VIAL) IVP ONE (08:45)
[2019-05-20] MEDS ORDERED: OXYC-471 PO (09:53)
--- NOTE | 2019-05-20 10:04 | Anesthesia-General Post-Op ---
General Patient Condition Mental Status/LOC: Same as Preop Cardiovascular: Satisfactory Nausea/Vomiting: Absent Respiratory: Satisfactory Pain: Controlled Complications: Absent Post Op Complications Complications None Follow Up Care/Instructions Patient Instructions None needed. Anesthesia/Patient Condition Patient Condition Patient is doing well, no complaints, stable vital signs, no apparent adverse anesthesia problems. MELIZA ALBERTO DO May 20, 2019 10:04
--- NOTE | 2019-05-20 10:14 | Diagnostic Imaging Report ---
INDICATION: Fluoroscopy for left foot ORIF. FINDINGS: Fluoroscopy was provided in the OR during left foot ORIF. 33 seconds of fluoroscopic time was utilized. Three images were obtained demonstrating a partially threaded screw transfixing the proximal 5th metatarsal fracture. IMPRESSION: Fluoroscopy for left foot ORIF. Dictated by: Dictated on workstation # [id number]
--- NOTE | 2019-05-20 12:39 | OPERATIVE REPORT ---
DATE OF SERVICE: 05/20/2019 PREOPERATIVE DIAGNOSIS: Left fifth metatarsal fracture (Miller type). POSTOPERATIVE DIAGNOSIS: Left fifth metatarsal fracture (Miller type). PROCEDURE: Open reduction and internal fixation, left fifth metatarsal. SURGEON: Reece Vazquez MD PLUGMAN: Yossi Mulligan, who assisted throughout the procedure and closed the incision. ANESTHESIA: General endotracheal by Dr. Hernandez. TOURNIQUET TIME: Not applicable. ESTIMATED BLOOD LOSS: Minimal. DRAINS: None. COMPLICATIONS: None. POSTOPERATIVE PLAN: Protected ambulation for 2 weeks. The patient was transferred to the recovery room awake and in stable condition. MATERIALS: Synthes 4.0 partially threaded cancellous screw. 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 She is having difficulty with ambulation, difficulty with her work duties and therefore has elected to proceed with surgical intervention. DESCRIPTION OF PROCEDURE: After risks and benefits of procedure were discussed and questions were answered, an informed consent was signed and placed on chart. The operative site was confirmed in the preoperative holding area initialed by the surgeon. The patient was then transferred to the operating room. After adequate levels of general endotracheal anesthetic were obtained, a timeout was called, confirming the operative site. The left lower extremity was prepped and draped in the usual sterile fashion. An incision was made from the fifth metatarsal base extending proximally. The underlying soft tissues were carefully dissected. The fifth metatarsal styloid was palpated and a guidewire was passed under fluoroscopic visualization down the canal of the fifth metatarsal shaft distal to the fracture site. This was found to be in excellent position in AP, lateral and oblique planes radiographically. This was then drilled and a 50 mm 4.0 partially threaded cancellous screw was placed with excellent purchase and excellent positioning noted in the AP, lateral and oblique planes radiographically. The wound was copiously irrigated and closed with 4-0 nylon vertical mattress interrupted fashion. Incision was infiltrated with plain Marcaine. A soft dressing was applied in a boot and the patient was transferred to the recovery room awake and in stable condition. Job ID: [id number] DocumentID: [id number] Dictated Date: 05/20/2019 08:33:01 Radio Program Director Date: 05/20/2019 12:37:54 Dictated By: REECE VAZQUEZ MD
== END 2019-05-20 11:15 | disposition home or self-care (01) ==
LOC: SDC 06:49
PROVIDERS: ATTEND Orthopaedic Surgery
DX: S92.352K Displaced fracture of fifth metatarsal bone, left foot, subsequent encounter for fracture with nonunion (principal); Z96.653 Presence of artificial knee joint, bilateral; Z96.643 Presence of artificial hip joint, bilateral; Z79.899 Other long term (current) drug therapy; Z11.2 Encounter for screening for other bacterial diseases; E66.9 Obesity, unspecified; G25.81 Restless legs syndrome; Z68.41 Body mass index [BMI] 40.0-44.9, adult; Z88.0 Allergy status to penicillin
CPT/HCPCS: 87081

== ENCOUNTER 2019-11-28 22:32 | Emergency (ER) | payer OTHER ==
[~2019-11-28] VITALS: Ht 165 cm; Wt 125.0 kg
[~2019-11-28 22:32] MED LIST changes: +OXYC-471 PO; -oxyCODONE/APAP 5/325MG (PERCOCET 5) TABLET PO PRN
[2019-11-29] MEDS ORDERED: KETOROLAC 30 MG/ML VIAL IVP ONE
[2019-11-29] MEDS ORDERED: LACTATED RINGERS 1,000 ML IV ONE (00:31)
--- NOTE | 2019-11-29 00:58 | ED Headache ---
General Chief Complaint: Respiratory Problems Stated Complaint: COVID POS,FEVER,COUGH, SOB Source: patient Exam Limitations: no limitations History of Present Illness Date Seen by Provider: Nov 29, 2019 Time Seen by Provider: 00:00 Initial Comments Patient present ER by private conveyance with chief complaint of 4 days ago she was diagnosed with COVID 19. She is not having any nausea vomiting or diarrhea but she is having a headache and difficulty drinking tonight. She took some Tylenol but it did not help her headache. She's also having some general malaise and body aches. No other significant medical history. Allergies and Home Medications Allergies Coded Allergies: Penicillins (Verified Allergy, Unknown, 04/22/17) Home Medications Baclofen 20 Mg Tablet, 20 MG PO Q8H PRN for MUSCLE SPASMS, (Reported) Benzonatate 100 Mg Capsule, 100 MG PO Q6H PRN for COUGH Prescribed by: LINDEN MAX on 11/29/19208 Diphenhydramine HCl 25 Mg Capsule, 50 MG PO HS PRN for RASH, (Reported) Furosemide 40 Mg Tablet, 80 MG PO DAILY, (Reported) TAKES 2 (40 MG) TABLETS Ondansetron 4 Mg Tab.rapdis, 4 MG PO Q6H PRN for NAUSEA/VOMITING Prescribed by: LINDEN MAX on 11/29/19208 Ondansetron HCl 4 Mg Tablet, 4 MG PO Q4H PRN for NAUSEA/VOMITING-1ST LINE, (Reported) Oxycodone HCl/Acetaminophen 1 Each Tablet, 1 EACH PO Q4H PRN for PAIN-SEVERE Prescribed by: WALLACE LOMELI on 05/20/19 0953 Potassium Chloride 20 Meq Tab.er.prt, 40 MEQ PO DAILY, (Reported) TAKES 2 (20 MEQ) TABLETS Ropinirole HCl 4 Mg Tablet, 4 MG PO HS, (Reported) Patient Home Medication List Home Medication List Reviewed: Yes Review of Systems Review of Systems Constitutional: No chills; fever, malaise Eyes: Denies Blindness, Denies Blurred Vision Ears, Nose, Mouth, Throat: denies ear pain, denies ear discharge Respiratory: cough; No phlegm; short of breath Cardiovascular: No edema, No Hx of Intervention Gastrointestinal: No abdominal pain, No loss of appetite, No nausea Genitourinary: No discharge, No dysuria Musculoskeletal: No back pain, No joint pain All Other Systems Reviewed Negative Unless Noted: Yes Past Aupadwc-Okpmju-Jczsqu Hx Patient Social History Alcohol Use: Denies Use Recreational Drug Use: No Smoking Status: Former Smoker Type Used: Cigarettes Former Smoker, Quit: Apr 11, 2007 2nd Hand Smoke Exposure: No Recent Foreign Travel: No Contact w/Someone Who Travel: No Recent Hopitalizations: No Immunizations Up To Date PED Vaccines UTD: Yes Date of Influenza Vaccine: Nov 16, 2018 Seasonal Allergies Seasonal Allergies: Yes Past Medical History Surgeries: Yes ( BILAT THR, BILAT TKR, left shoulder, GASTRIC SLEEVE) Respiratory: No Cardiac: Yes Chronic Edema/Swelling Neurological: Yes (Restless leg syndrome) Reproductive Disorders: No Sexually Transmitted Disease: No Genitourinary: No Gastrointestinal: No Musculoskeletal: Yes Arthritis, Fractures Endocrine: No HEENT: No Cancer: No Psychosocial: No Integumentary: No Blood Disorders: No Family Medical History Arthritis 19 MOTHER Cataracts 19 MOTHER G8 BROTHER Diabetes mellitus 19 MOTHER Physical Exam Vital Signs Vital Signs - First Documented 11/28/19 23:20 Temp 37.9 Pulse 81 Resp 20 B/P (MAP) 126/88 (101) Pulse Ox 96 O2 Delivery Room Air Capillary Refill : Height, Weight, BMI Height: 5'4.00" Weight: 270lbs. 0.0oz. 122.670088os; 42.98 BMI Method:Stated General Appearance: WD/WN, mild distress HEENT: PERRL/EOMI, normal ENT inspection, TMs normal, pharynx normal Neck: non-tender, full range of motion, supple, normal inspection Cardiovascular: normal peripheral pulses, regular rate, rhythm Respiratory: lungs clear, normal breath sounds, no respiratory distress, no accessory muscle use (99-100% oxygen saturations on room air without labored breathing) Gastrointestinal: non tender, soft Extremities: normal inspection, normal capillary refill Psychiatric: alert, oriented x 3 Crainal Nerves: normal hearing, normal speech, PERRL Coordination/Gait: normal gait Skin: normal color, warm/dry Progress/Results/Core Measures Results/Orders Lab Results Laboratory Tests Test 11/29/19 01:17 Range/Units White Blood Count 2.5 L 4.3-11.0 10^3/uL Red Blood Count 4.29 3.80-5.11 10^6/uL Hemoglobin 12.6 11.5-16.0 g/dL Hematocrit 38 35-52 % Mean Corpuscular Volume 89 80-99 fL Mean Corpuscular Hemoglobin 29 25-34 pg Mean Corpuscular Hemoglobin Concent 33 32-36 g/dL Red Cell Distribution Width 12.6 10.0-14.5 % Platelet Count 92 L 130-400 10^3/uL Mean Platelet Volume 11.4 9.0-12.2 fL Immature Granulocyte % (Auto) 0 % Neutrophils (%) (Auto) 52 42-75 % Lymphocytes (%) (Auto) 35 12-44 % Monocytes (%) (Auto) 13 H 0-12 % Eosinophils (%) (Auto) 0 0-10 % Basophils (%) (Auto) 0 0-10 % Neutrophils # (Auto) 1.3 L 1.8-7.8 10^3/uL Lymphocytes # (Auto) 0.9 L 1.0-4.0 10^3/uL Monocytes # (Auto) 0.3 0.0-1.0 10^3/uL Eosinophils # (Auto) 0.0 0.0-0.3 10^3/uL Basophils # (Auto) 0.0 0.0-0.1 10^3/uL Immature Granulocyte # (Auto) 0.0 0.0-0.1 10^3/uL Sodium Level 140 135-145 MMOL/L Potassium Level 3.4 L 3.6-5.0 MMOL/L Chloride Level 101 98-107 MMOL/L Carbon Dioxide Level 28 21-32 MMOL/L Anion Gap 11 5-14 MMOL/L Blood Urea Nitrogen 12 7-18 MG/DL Creatinine 0.80 0.60-1.30 MG/DL Estimat Glomerular Filtration Rate > 60 BUN/Creatinine Ratio 15 Glucose Level 89 70-105 MG/DL Calcium Level 8.1 L 8.5-10.1 MG/DL Corrected Calcium 8.3 L 8.5-10.1 MG/DL Total Bilirubin 0.6 0.1-1.0 MG/DL Aspartate Amino Transf (AST/SGOT) 16 5-34 U/L Alanine Aminotransferase (ALT/SGPT) 12 0-55 U/L Alkaline Phosphatase 73 40-136 U/L C-Reactive Protein High Sensitivity 0.52 H 0.00-0.50 MG/DL Total Protein 6.2 L 6.4-8.2 GM/DL Albumin 3.7 3.2-4.5 GM/DL My Orders Orders - LINDEN MAX Cbc With Automated Diff (11/28/19 23:48) Comprehensive Metabolic Panel (11/28/19 23:48) Hs C Reactive Protein (11/28/19 23:48) Ketorolac Injection (Toradol Injection) (11/29/19 00:00) Chest 1 View, Ap/Pa Only (11/29/19 00:01) Ed Iv/Invasive Line Start (11/29/19 00:31) Lactated Ringers (Lr 1000 Ml Iv Solution (11/29/19 00:31) Acetaminophen Tablet (Tylenol Tablet) (11/29/19 02:15) Promethazine Injection (Phenergan Injec (11/29/19 02:15) Diphenhydramine Injection (Benadryl Inje (11/29/19 02:15) Medications Given in ED Current Medications Medications Dose Ordered Sig/Sandy Route Start Time Stop Time Status Last Admin Dose Admin Acetaminophen 1,000 mg ONCE ONCE PO 11/29/19 02:15 11/29/19 02:16 DC 11/29/19 02:25 1,000 MG Diphenhydramine HCl 25 mg ONCE ONCE IVP 11/29/19 02:15 11/29/19 02:16 DC 11/29/19 02:25 25 MG Ketorolac Tromethamine 30 mg ONCE ONCE IVP 11/29/19 00:00 11/29/19 00:01 DC 11/29/19 00:46 30 MG Lactated Ringer's 1,000 ml @ 0 mls/hr Q0M ONCE IV 11/29/19 00:31 11/29/19 00:32 DC 11/29/19 00:46 999 MLS/HR Promethazine HCl 25 mg ONCE ONCE IVP 11/29/19 02:15 11/29/19 02:16 DC 11/29/19 02:25 25 MG Vital Signs/I&O 11/28/19 11/29/19 23:20 02:25 Temp 37.9 37.9 Pulse 81 Resp 20 B/P (MAP) 126/88 (101) Pulse Ox 96 O2 Delivery Room Air Progress Progress Note #1: Time: 00:56 Progress Note Toradol for her discomfort and a liter of lactated Ringer's. Basic labs and a chest x-ray. Lungs sound fine aseptic vital signs. Temperature of 100.2. Progress Note #2: Time: 01:59 Progress Note Heart rate in the 80s no increased work of breathing. Chest x-ray unremarkable. Curiously the white count is 2.5 however there is no left shift nor are there immature granulocytes so I suspect this is incidental and not a marker of worsening disease process yet. Progress Note #3: Time: 02:10 Progress Note Patient still has a headache and backache and is not ready to leave yet. Really give her a gram of Tylenol, Phenergan and Benadryl and allow her to finish the other half of the liter of fluids that were initially started. Progress Note #4: Time: 03:32 Progress Note patient's fluids are done and she volunteers she feels better and ready to go home. Diagnostic Imaging Diagonstic Imaging: Xray Plain Films/CT/US/NM/MRI: chest (1v) Comments No acute cardiopulmonary process on one view chest x-ray Reviewed: Reviewed by Me Departure Impression Primary Impression: COVID-19 Additional Impressions: Headache Qualified Codes: R51 - Headache Dehydration Disposition: 01 HOME, SELF-CARE Condition: Stable Departure-Patient Inst. Decision time for Depature: 02:02 Referrals: JESSICA DUKES MD (PCP/Family) Primary Care Physician Patient Instructions: Coronavirus Disease 2019 (COVID-19) Overview Add. Discharge Instructions: Drink more fluids. Ondansetron one tablet under the tongue every 6 hours as necessary for nausea or vomiting. Tessalon Perles 1 capsule every 6 hours as necessary for coughing. Tylenol and ibuprofen as necessary for headache and body aches. Return to the ER if you're having worsening symptoms. All discharge instructions reviewed with patient and/or family. Voiced understanding. Scripts Benzonatate (TESSALON PERLES) 100 Mg Capsule 100 MG PO Q6H PRN for COUGH, #30 CAP 0 Refills Prov: LINDEN MAX 11/29/19 Ondansetron (Ondansetron Odt) 4 Mg Tab.rapdis 4 MG PO Q6H PRN for NAUSEA/VOMITING, #12 TAB 0 Refills Prov: LINDEN MAX 11/29/19 LINDEN MAX Nov 29, 2019 00:58
[2019-11-29 01:27] LABS: BASOPHILS % (AUTO) 0 % (0-10); EOSINOPHILS % (AUTO) 0 % (0-10); HEMATOCRIT 38 % (35-52); HEMOGLOBIN 12.6 g/dL (11.5-16.0); LYMPHOCYTES # (AUTO) 0.9 10^3/uL (1.0-4.0); LYMPHOCYTES % (AUTO) 35 % (12-44); MEAN CORPUSCULAR HEMOGLOBIN 29 pg (25-34); MEAN CORPUSCULAR HGB CONC 33 g/dL (32-36); MEAN CORPUSCULAR VOLUME 89 fL (80-99); MEAN PLATELET VOLUME 11.4 fL (9.0-12.2); MONOCYTES # (AUTO) 0.3 10^3/uL (0.0-1.0); MONOCYTES % (AUTO) 13 % (0-12); NEUTROPHILS # (AUTO) 1.3 10^3/uL (1.8-7.8); NEUTROPHILS % (AUTO) 52 % (42-75); PLATELET COUNT 92 10^3/uL (130-400); WHITE BLOOD COUNT 2.5 10^3/uL (4.3-11.0)
[2019-11-29 01:33] LABS: ALBUMIN 3.7 GM/DL (3.2-4.5); CHLORIDE 101 MMOL/L (98-107); POTASSIUM 3.4 MMOL/L (3.6-5.0); SODIUM 140 MMOL/L (135-145)
[2019-11-29 01:34] LABS: CALCIUM 8.1 MG/DL (8.5-10.1)
[2019-11-29 01:35] LABS: GLUCOSE 89 MG/DL (70-105); TOTAL PROTEIN 6.2 GM/DL (6.4-8.2)
[2019-11-29 01:37] LABS: BILIRUBIN,TOTAL 0.6 MG/DL (0.1-1.0); CARBON DIOXIDE 28 MMOL/L (21-32)
[2019-11-29 01:39] LABS: ALKALINE PHOSPHATASE 73 U/L (40-136); GFR ESTIMATED > 60
[2019-11-29 01:40] LABS: BUN/CREATININE RATIO 15
[2019-11-29 01:42] LABS: ALANINE AMINOTRANSFERASE 12 U/L (0-55)
[2019-11-29] MEDS ORDERED: BENZ100C18 PO (02:09)
[2019-11-29] MEDS ORDERED: ONDA4TAB11 PO (02:09)
[2019-11-29] MEDS ORDERED: diphenhydrAMINE 50 MG/ML INJ (BENADRYL) IVP ONE (02:15)
[2019-11-29] MEDS ORDERED: PROMETHAZINE INJ 25 MG/ML (PHENERGAN) AMP IVP ONE (02:15)
[2019-11-29] MEDS ORDERED: ACETAMINOPHEN 500 MG TAB (TYLENOL) PO ONE (02:15)
[2019-11-29] MEDS ORDERED: PROM25TA14 PO (03:35)
[2019-11-29 03:51] VITALS: BP 104/70
--- NOTE | 2019-11-29 07:24 | Diagnostic Imaging Report ---
Indication: Dyspnea, COVID pneumonia. Comparison: 04/22/2017. Discussion: Single portable upright view of the chest was obtained. Normal heart size. No consolidation, pleural fluid, or pneumothorax. No osseous abnormality. Impression: 1. Negative portable chest. Dictated by: Dictated on workstation # [id number]
== END 2019-11-29 03:51 | disposition home or self-care (01) ==
LOC: EDUNIT# 22:32 → ER 22:34
DX: U07.1 COVID-19 (principal); E86.0 Dehydration; Z83.3 Family history of diabetes mellitus; Z82.61 Family history of arthritis; Z87.891 Personal history of nicotine dependence; Z88.0 Allergy status to penicillin
CPT/HCPCS: 36415; 71045; 85025

== ENCOUNTER 2019-12-04 10:45 | Inpatient (IN) | payer OTHER ==
[2019-12-04] VITALS (7 sets, daily range): BP systolic 96–117; BP diastolic 66–78
[~2019-12-04] VITALS: Ht 162.5 cm; Wt 117.9 kg
[~2019-12-04 10:45] MED LIST changes: +BENZ100C18 PO; +PROM25TA14 PO
--- NOTE | 2019-12-04 11:18 | ED Respiratory ---
General Chief Complaint: Respiratory Problems Stated Complaint: COVID SYMPTOMS; COVID+ Source: patient Exam Limitations: no limitations History of Present Illness Date Seen by Provider: Dec 04, 2019 Time Seen by Provider: 11:18 Initial Comments 59-year-old female presents with fever, shortness of breath, generalized malaise, chest pain. Patient had a positive COVID test on 11/26/19. Reports that since then she's had some continue malaise fever. Reports that this got worse and that today she feels more short of breath, has some chest pain, worsening of her fever. Allergies and Home Medications Allergies Coded Allergies: Penicillins (Verified Allergy, Unknown, 04/22/17) Home Medications Baclofen 20 Mg Tablet, 20 MG PO Q8H PRN for MUSCLE SPASMS, (Reported) Benzonatate 100 Mg Capsule, 100 MG PO Q6H PRN for COUGH Prescribed by: LINDEN MAX on 11/29/19 020 Diphenhydramine HCl 25 Mg Capsule, 50 MG PO HS PRN for RASH, (Reported) Furosemide 40 Mg Tablet, 80 MG PO DAILY, (Reported) TAKES 2 (40 MG) TABLETS Ondansetron 4 Mg Tab.rapdis, 4 MG PO Q6H PRN for NAUSEA/VOMITING Prescribed by: LINDEN MAX on 11/29/19 020 Ondansetron HCl 4 Mg Tablet, 4 MG PO Q4H PRN for NAUSEA/VOMITING-1ST LINE, (Reported) Oxycodone HCl/Acetaminophen 1 Each Tablet, 1 EACH PO Q4H PRN for PAIN-SEVERE Prescribed by: WALLACE LOMELI on 05/20/19 0953 Potassium Chloride 20 Meq Tab.er.prt, 40 MEQ PO DAILY, (Reported) TAKES 2 (20 MEQ) TABLETS Promethazine HCl 25 Mg Tablet, 25 MG PO Q6H PRN for NAUSEA/VOMITING Prescribed by: LINDEN MAX on 11/29/19 0335 Ropinirole HCl 4 Mg Tablet, 4 MG PO HS, (Reported) Patient Home Medication List Home Medication List Reviewed: Yes Review of Systems Review of Systems Constitutional: chills, fever, malaise Respiratory: cough, short of breath Cardiovascular: chest pain; No edema, No palpitations Gastrointestinal: No abdominal pain, No nausea, No vomiting Genitourinary: no symptoms reported Musculoskeletal: no symptoms reported Skin: no symptoms reported Psychiatric/Neurological: No Symptoms Reported Hematologic/Lymphatic: No Symptoms Reported Past Wtbdumb-Jalkrq-Tlonyz Hx Past Med/Social Hx: Reviewed Nursing Past Med/Soc Hx Patient Social History Type Used: Cigarettes Former Smoker, Quit: Apr 11, 2007 2nd Hand Smoke Exposure: No Recent Hopitalizations: No Immunizations Up To Date PED Vaccines UTD: Yes Date of Influenza Vaccine: Nov 16, 2018 Seasonal Allergies Seasonal Allergies: Yes Past Medical History Surgeries: Yes ( BILAT THR, BILAT TKR, left shoulder, GASTRIC SLEEVE) Respiratory: No Cardiac: Yes Chronic Edema/Swelling Neurological: Yes (Restless leg syndrome) Reproductive Disorders: No Sexually Transmitted Disease: No Genitourinary: No Gastrointestinal: No Musculoskeletal: Yes Arthritis, Fractures Endocrine: No HEENT: No Cancer: No Psychosocial: No Integumentary: No Blood Disorders: No Family Medical History Arthritis 19 MOTHER Cataracts 19 MOTHER G8 BROTHER Diabetes mellitus 19 MOTHER Physical Exam Vital Signs - First Documented 12/04/19 12/04/19 11:10 11:15 Temp 38.1 Pulse 100 Resp 24 B/P (MAP) 119/70 (86) Pulse Ox 89 O2 Delivery Room Air O2 Flow Rate 2.00 Capillary Refill : Height: 5'4.00" Weight: 270lbs. 0.0oz. 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 tested, alert, normal mood/affect, oriented x 3 Skin: normal color, warm/dry Focused Exam Lactate Level 12/04/19 12:10: Lactic Acid Level 0.78 Lactic Acid Level Laboratory Tests Test 12/04/19 12:10 Lactic Acid Level 0.78 MMOL/L (0.50-2.00) Progress/Results/Core Measures Suspected Sepsis SIRS Temperature: Pulse: Respiratory Rate: Laboratory Tests 12/04/19 11:30: White Blood Count 3.5L Blood Pressure / Mean: 12/04/19 12:10: Lactic Acid Level 0.78 Laboratory Tests 12/04/19 11:30: Creatinine 0.67, INR Comment 0.9, Platelet Count 91L, Total Bilirubin 1.1H Results/Orders Lab Results Laboratory Tests Test 12/04/19 11:30 12/04/19 12:10 Range/Units White Blood Count 3.5 L 4.3-11.0 10^3/uL Red Blood Count 4.50 3.80-5.11 10^6/uL Hemoglobin 13.0 11.5-16.0 g/dL Hematocrit 40 35-52 % Mean Corpuscular Volume 89 80-99 fL Mean Corpuscular Hemoglobin 29 25-34 pg Mean Corpuscular Hemoglobin Concent 32 32-36 g/dL Red Cell Distribution Width 13.1 10.0-14.5 % Platelet Count 91 L 130-400 10^3/uL Mean Platelet Volume 11.7 9.0-12.2 fL Immature Granulocyte % (Auto) 1 % Neutrophils (%) (Auto) 66 42-75 % Lymphocytes (%) (Auto) 24 12-44 % Monocytes (%) (Auto) 8 0-12 % Eosinophils (%) (Auto) 1 0-10 % Basophils (%) (Auto) 0 0-10 % Neutrophils # (Auto) 2.3 1.8-7.8 10^3/uL Lymphocytes # (Auto) 0.8 L 1.0-4.0 10^3/uL Monocytes # (Auto) 0.3 0.0-1.0 10^3/uL Eosinophils # (Auto) 0.0 0.0-0.3 10^3/uL Basophils # (Auto) 0.0 0.0-0.1 10^3/uL Immature Granulocyte # (Auto) 0.1 0.0-0.1 10^3/uL Prothrombin Time 13.0 12.2-14.7 SEC INR Comment 0.9 0.8-1.4 Activated Partial Thromboplast Time 20 L 24-35 SEC Fibrinogen 491 221-496 MG/DL Sodium Level 140 135-145 MMOL/L Potassium Level 3.7 3.6-5.0 MMOL/L Chloride Level 102 98-107 MMOL/L Carbon Dioxide Level 24 21-32 MMOL/L Anion Gap 14 5-14 MMOL/L Blood Urea Nitrogen 11 7-18 MG/DL Creatinine 0.67 0.60-1.30 MG/DL Estimat Glomerular Filtration Rate > 60 BUN/Creatinine Ratio 16 Glucose Level 110 H 70-105 MG/DL Calcium Level 8.2 L 8.5-10.1 MG/DL Corrected Calcium 8.7 8.5-10.1 MG/DL Total Bilirubin 1.1 H 0.1-1.0 MG/DL Aspartate Amino Transf (AST/SGOT) 36 H 5-34 U/L Alanine Aminotransferase (ALT/SGPT) 22 0-55 U/L Alkaline Phosphatase 103 40-136 U/L Lactate Dehydrogenase 428 H 125-220 U/L Troponin I < 0.028 <0.028 NG/ML C-Reactive Protein High Sensitivity 18.88 H 0.00-0.50 MG/DL Total Protein 6.6 6.4-8.2 GM/DL Albumin 3.4 3.2-4.5 GM/DL Lactic Acid Level 0.78 0.50-2.00 MMOL/L My Orders Orders - MUNOZ,SIOMARA L DO Vital Signs: Every 4 Hours (Or (12/04/19 11:25) Monitor-Rhythm Ecg Trace Only (12/04/19:) Ed Iv/Invasive Line Start (12/04/19:) Cbc With Automated Diff (12/04/19:25) Comprehensive Metabolic Panel (12/04/19:) Ferritin (12/04/19:25) LDH (12/04/19:25) Hs C Reactive Protein (12/04/19:25) Troponin I (12/04/19:25) Lactic Acid Analyzer (12/04/19 11:25) Protime With Inr (12/04/19:) Partial Thromboplastin Time (12/04/19:25) Fibrinogen (12/04/19:25) Ekg Tracing (12/04/19:) Chest 1 View, Ap/Pa Only (12/04/19:) Acetaminophen Tablet/Caplet (Tylenol T (12/04/19 11:30) Oxygen Delivery Set Up (12/04/19:25) Oxygen-Administer 07,19 (12/04/19 11:25) Dexamethasone Injection (Decadron Inje (12/04/19 11:30) Famotidine Injection (Pepcid Injection) (12/04/19 11:25) Medications Given in ED Current Medications Medications Dose Ordered Sig/Sandy Route Start Time Stop Time Status Last Admin Dose Admin Acetaminophen 650 mg ONCE ONCE PO 12/04/19 11:30 12/04/19 11:31 DC 12/04/19 12:00 650 MG Dexamethasone Sodium Phosphate 10 mg ONCE ONCE IV 12/04/19 11:30 12/04/19 11:31 DC 12/04/19 12:10 10 MG Vital Signs/I&O 12/04/19 12/04/19 11:10 11:15 Temp 38.1 Pulse 100 Resp 24 B/P (MAP) 119/70 (86) Pulse Ox 89 97 O2 Delivery Room Air Nasal Cannula O2 Flow Rate 2.00 Capillary Refill : Progress Note : Time: 14:01 Progress Note Patient is requiring a small amount of oxygen to keep her saturations in the mid 90s. Patient is otherwise stable. We will admit her for oxygen and observation. Patient is stable upon admission ECG Initial ECG Impression Date: Dec 04, 2019 Initial ECG Impression Time: 11:35 Initial ECG Rate: 80 Initial ECG Rhythm: Normal Sinus Initial ECG Intervals: Normal Initial ECG Intervals RBB Comment NSR, RBBB Diagnostic Imaging Diagonstic Imaging: Xray Plain Films/CT/US/NM/MRI: chest Comments [facility], [place] NAME: CHRISTINE ANNE [facility] REC#: [id number] PT STATUS: REG ER : 1960 PHYSICIAN: SIOMARA MUNOZ DO ADMIT DATE: 12/04/19/ER Draft Date of Exam:12/04/19 CHEST 1 VIEW, AP/PA ONLY CLINICAL INDICATION: Patient shortness of breath, cough, fever. Possible Covid. EXAM: Portable chest x-ray upright view. COMPARISONS: Chest x-ray dated 11/29/2019. FINDINGS: Lungs/pleura: There is interval development of subtle patchy airspace opacities involving both lung bases regions and periphery of the left midlung field region concerning for lung infiltrates. There is no pneumothorax. There is no pleural effusion. Mediastinum: Unremarkable. Pulmonary vasculature: Unremarkable. Heart: Cardiac silhouette is within normal limits for portable projection. Bones/extrathoracic soft tissue: There are hypertrophic spurs involving the thoracic spine. IMPRESSION: 1: There is interval development of mild patchy airspace infiltrates involving both lung bases and periphery left midlung field concerning for pneumonia Departure Communication (Admissions) Time/Spoke to Admitting Phy: 14:00 Impression Primary Impression: COVID-19 Additional Impression: Pneumonia Qualified Codes: J18.9 - Pneumonia, unspecified organism Disposition: ADMITTED INPATIENT Condition: Stable Admissions Decision to Admit Reason: Admit from ER (General) Decision to Admit/Date: Dec 04, 2019 Time/Decision to Admit Time: 14:01 Departure-Patient Inst. Referrals: JESSICA DUKES MD (PCP/Family) Primary Care Physician SIOMARA MUNOZ DO Dec 04, 2019 11:18
[2019-12-04] MEDS ORDERED: FAMOTIDINE 20MG/2ML IV (PEPCID) IV STA (11:25)
[2019-12-04] MEDS ORDERED: ACETAMINOPHEN 325 MG TABLET PO ONE (11:30)
[2019-12-04 11:48] LABS: BASOPHILS % (AUTO) 0 % (0-10); EOSINOPHILS % (AUTO) 1 % (0-10); MEAN PLATELET VOLUME 11.7 fL (9.0-12.2); NEUTROPHILS % (AUTO) 66 % (42-75)
[2019-12-04 11:50] LABS: HEMATOCRIT 40 % (35-52); LYMPHOCYTES # (AUTO) 0.8 10^3/uL (1.0-4.0); LYMPHOCYTES % (AUTO) 24 % (12-44); MEAN CORPUSCULAR HEMOGLOBIN 29 pg (25-34); MEAN CORPUSCULAR HGB CONC 32 g/dL (32-36); MEAN CORPUSCULAR VOLUME 89 fL (80-99); MONOCYTES # (AUTO) 0.3 10^3/uL (0.0-1.0); MONOCYTES % (AUTO) 8 % (0-12); NEUTROPHILS # (AUTO) 2.3 10^3/uL (1.8-7.8); WHITE BLOOD COUNT 3.5 10^3/uL (4.3-11.0)
[2019-12-04 11:57] LABS: PLATELET COUNT 91 10^3/uL (130-400)
[2019-12-04 12:10] LABS: ALANINE AMINOTRANSFERASE 22 U/L (0-55); ALBUMIN 3.4 GM/DL (3.2-4.5); ALKALINE PHOSPHATASE 103 U/L (40-136); BILIRUBIN,TOTAL 1.1 MG/DL (0.1-1.0); BUN/CREATININE RATIO 16; CALCIUM 8.2 MG/DL (8.5-10.1); CARBON DIOXIDE 24 MMOL/L (21-32); CHLORIDE 102 MMOL/L (98-107); CREATININE SERUM 0.67 MG/DL (0.60-1.30); GFR ESTIMATED > 60; GLUCOSE 110 MG/DL (70-105); INR 0.9 (0.8-1.4); POTASSIUM 3.7 MMOL/L (3.6-5.0); SODIUM 140 MMOL/L (135-145); TOTAL PROTEIN 6.6 GM/DL (6.4-8.2)
--- NOTE | 2019-12-04 12:42 | Diagnostic Imaging Report ---
CLINICAL INDICATION: Patient shortness of breath, cough, fever. Possible Covid. EXAM: Portable chest x-ray upright view. COMPARISONS: Chest x-ray dated 11/29/2019. FINDINGS: Lungs/pleura: There is interval development of subtle patchy airspace opacities involving both lung bases regions and periphery of the left midlung field region concerning for lung infiltrates. There is no pneumothorax. There is no pleural effusion. Mediastinum: Unremarkable. Pulmonary vasculature: Unremarkable. Heart: Cardiac silhouette is within normal limits for portable projection. Bones/extrathoracic soft tissue: There are hypertrophic spurs involving the thoracic spine. IMPRESSION: 1: There is interval development of mild patchy airspace infiltrates involving both lung bases and periphery left midlung field concerning for pneumonia. Dictated by: Dictated on workstation # [id number]
--- NOTE | 2019-12-04 15:10 | NUR ---
CHRISTINE ANNE admitted to room 425-1, with an admitting diagnosis of PNEUMONIA, COVID POSITIVE, on 12/04/19 from ED via ED, accompanied by STAFF. CHRISTINE NANE introduced to surroundings, call light, bed controls, phone, TV, temperature control, lights, meal times, smoking policy, visitor policy, side rail policy, bathrooms and showers. Patient Rights given to patient in the handbook. CHRISTINE ANNE verbalizes understanding that [facility] is not responsible for the loss or damage to any personal effects or valuables that are kept in the patients posession during their hospitalization. The following Patient Care Plans were discussed with the PATIENT: Discharge Planning, PNEUMONIA AND KNOWLEDGE CHRISTINE ANNE verbalizes understanding of Interdisciplinary Patient Education.
[2019-12-04] MEDS ORDERED: NS IV 500 ML 500 ML IV SCH (16:06)
--- NOTE | 2019-12-04 16:13 | History & Physical-Hospitalist ---
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 She has been sick for roughly 1 week and was tested for COVID on 11/25 and was positive. She has attempted outpatient management but continued to feel worse. She was mildly hypoxic at 89% on room air and required 2lpm to bring her up. She was admitted for further management. Source: patient Date Seen 12/04/19 Time Seen by a Provider: 16:08 Attending Physician Ekaterina Brian MD PCP Jose Dukes MD Referring Physician Date of Admission Dec 04, 2019 at 14:05 Home Medications & Allergies Home Medications Reviewed patient Home Medication Reconciliation performed by pharmacy medication reconciliations heavy truck technician and/or nursing. Patients Allergies have been reviewed. Allergies Allergies Coded Allergies Penicillins (Verified Allergy, Unknown, 04/22/17) Past Yycaahm-Lanouw-Dxpwet Hx Past Med/Social Hx: Reviewed Nursing Past Med/Soc Hx Patient Social History Alcohol Use: Denies Use Recreational Drug Use: No Smoking Status: Former Smoker Former Smoker, Quit: Apr 11, 2007 Type Used: Cigarettes 2nd Hand Smoke Exposure: No Recent Foreign Travel: No Contact w/other who traveled: No Recent Hopitalizations: No Recent Infectious Disease Expo: No Immunizations Up To Date Pediatric: Yes Date of Influenza Vaccine: Nov 16, 2018 Seasonal Allergies Seasonal Allergies: Yes Past Medical History Cardiac: Chronic Edema/Swelling Reproductive: No Sexually Transmitted Disease: No Musculoskeletal: Arthritis, Fractures History of Blood Disorders: No Family History Arthritis 19 MOTHER Cataracts 19 MOTHER G8 BROTHER Diabetes mellitus 19 MOTHER Review of Systems Constitutional: chills, fever, malaise, weakness EENTM: hoarseness, other (loss of taste and smell) Respiratory: cough, short of breath Cardiovascular: No chest pain, No palpitations Gastrointestinal: diarrhea, nausea Genitourinary: no symptoms reported Musculoskeletal: muscle weakness Skin: no symptoms reported Psychiatric/Neurological: No Symptoms Reported Physical Exam Physical Exam Vital Signs Vital Signs - First Documented 12/04/19 12/04/19 11:10 11:15 Temp 38.1 Pulse 100 Resp 24 B/P (MAP) 119/70 (86) Pulse Ox 89 O2 Delivery Room Air O2 Flow Rate 2.00 Capillary Refill : Less Than 3 Seconds Height, Weight, BMI Height: 5'4.00" Weight: 270lbs. 0.0oz. 122.571633mk; 44.64 BMI Method:Stated General Appearance: No Apparent Distress, Obese HEENT: PERRL/EOMI, Moist Mucous Membranes; No Scleral Icterus (L), No Scleral Icterus (R) Neck: Normal Inspection, Supple Respiratory: Lungs Clear, No Accessory Muscle Use, No Respiratory Distress Cardiovascular: Regular Rate, Rhythm, No Murmur Gastrointestinal: Normal Bowel Sounds, Non Tender, Soft Extremity: Normal Capillary Refill, No Calf Tenderness, No Pedal Edema Neurologic/Psychiatric: Alert, Oriented x3, Normal Mood/Affect Skin: Normal Color, Warm/Dry Results Results/Procedures Labs Laboratory Tests 12/05/19 05:39 12/06/19 04:45 Patient resulted labs reviewed. Imaging: Reviewed Imaging Report Imaging [facility], [place] NAME: DAYANACHRISTINE [facility] REC#: [id number] PT STATUS: ADM IN : 1960 PHYSICIAN: SIOMARA MUNOZ DO ADMIT DATE: 12/04/19 Signed Date of Exam:12/04/19 CHEST 1 VIEW, AP/PA ONLY CLINICAL INDICATION: Patient shortness of breath, cough, fever. Possible Covid. EXAM: Portable chest x-ray upright view. COMPARISONS: Chest x-ray dated 11/29/2019. FINDINGS: Lungs/pleura: There is interval development of subtle patchy airspace opacities involving both lung bases regions and periphery of the left midlung field region concerning for lung infiltrates. There is no pneumothorax. There is no pleural effusion. Mediastinum: Unremarkable. Pulmonary vasculature: Unremarkable. Heart: Cardiac silhouette is within normal limits for portable projection. Bones/extrathoracic soft tissue: There are hypertrophic spurs involving the thoracic spine. IMPRESSION: 1: There is interval development of mild patchy airspace infiltrates involving both lung bases and periphery left midlung field concerning for pneumonia. Dictated by: Dictated on workstation # [id number] Dict: 12/04/19 1230 Trans: 12/04/19 1851 [id number] Interpreted by: CHRISTINE ROJAS MD Electronically signed by: CHRISTINE ROJAS MD 12/04/19 5167 Assessment/Plan Admission Diagnosis Acute hypoxic respiratory failure from COVID19 Admission Status: Inpatient Order (span 2 midnights) Reason for Inpatient Admission: failed outpatient management Assessment and Plan Acute hypoxic respiratory failure from COVID19 Oxygen supplementation as need to keep sats >90 Decadron Discussed remdesivir and convalescent plasma and EUA status, patient agrees to treatment Lovenox IVF for dehydration MAT protocol IS Zofran prn nausea NIDDMII SSI DVT ppx: Lovenox Diagnosis/Problems Diagnosis/Problems (1) COVID-19 Status: Acute (2) Pneumonia Status: Acute Qualifiers: Laterality: bilateral Lung location: lower lobe of lung (3) Acute respiratory failure Status: Acute Qualifiers: Respiratory failure complication: hypoxia Qualified Codes: J96.01 - Acute respiratory failure with hypoxia (4) Non-insulin dependent type 2 diabetes mellitus Status: Chronic (5) Hypertension Status: Chronic Qualifiers: Hypertension type: essential hypertension Qualified Codes: I10 - Essential (primary) hypertension (6) Prophylactic measure Status: Acute (7) BMI 40.0-44.9, adult Status: Chronic Clinical Quality Measures DVT/VTE Risk/Contraindication: Risk Factor Score Per Nursin RFS Level Per Nursing on Admit: 4+=Very High Copy Copies To 1: JOSE DUKES MD, KATELYN M MD Dec 04, 2019 16:13
[2019-12-04] MEDS ORDERED: ACETAMINOPHEN 325 MG TABLET PO PRN (16:15)
[2019-12-04] MEDS ORDERED: CATHETER FLUSH 10 ML SYR IV PRN (16:15)
[2019-12-04] MEDS ORDERED: REMDESIVIR INJ (NON-FORMULARY) 200 MG in NS (IVPB) 210 ML IV NR (16:15)
[2019-12-04] MEDS ORDERED: FLU QUADRIvalent (3YOA+) 60 mcg/0.5 ml 2020-21 (AFLURIA) IM ONE (16:30)
--- NOTE | 2019-12-04 16:30 | NUR ---
VERBAL CONSENT FOR REMDESIVIR GIVEN, PATIENT VERBALIZED UNDERSTANDING
[2019-12-04] MEDS: NS IV 1000 ML 1,000 ML IV SCH (16:39)
[2019-12-04] MEDS ORDERED: TRZ50T PO (16:53)
[2019-12-04] MEDS ORDERED: ESCI10TA55 PO (16:55)
[2019-12-04] MEDS ORDERED: HYDR-3820 PO (16:55)
[2019-12-04] MEDS: ENOXAPARIN 40 MG/0.4 ML (LOVENOX) SYR SC SCH (18:47)
[2019-12-04] MEDS ORDERED: PROMETHAZINE 25 MG (PHENERGAN) TAB PO PRN (19:15)
[2019-12-04] MEDS ORDERED: NON-FORMULARY MEDICATION 1 EA EA (Baclofen 20 MG) PO PRN (19:15)
[2019-12-04] MEDS ORDERED: BACLOFEN 10 MG (LIORESAL) TAB PO PRN (19:30)
[2019-12-04] MEDS: traZODone 50 MG (DESYREL) TAB PO SCH (20:04)
[2019-12-04] MEDS: rOPINIRole 1 MG (REQUIP) TABLET PO SCH (20:04)
[2019-12-04] MEDS ORDERED: NON-FORMULARY MEDICATION 1 EA EA (Ropinirole HCl 4 MG) PO SCH (21:00)
[2019-12-04] MEDS: guaiFENesin SYRUP 100 MG/5 ML 10 ML (ROBITUSSIN SF) PO PRN (21:31)
[2019-12-04] MEDS: MELATONIN 3 MG TABLET PO PRN (21:32)
[2019-12-04] MEDS: HYDROcodone/APAP 10 MG/325 MG (LORTAB) TAB PO PRN (21:32)
[2019-12-04] MEDS ORDERED: CATHETER FLUSH 10 ML SYR IV SCH (22:00)
[2019-12-05] MEDS: guaiFENesin SYRUP 100 MG/5 ML 10 ML (ROBITUSSIN SF) PO PRN ×2 (04:17→20:11)
[2019-12-05] MEDS: HYDROcodone/APAP 10 MG/325 MG (LORTAB) TAB PO PRN ×4 (04:17→20:10)
[2019-12-05 04:18] VITALS: BP 114/78
[2019-12-05 06:05] LABS: BASOPHILS % (AUTO) 0 % (0-10); EOSINOPHILS % (AUTO) 0 % (0-10); HEMATOCRIT 37 % (35-52); HEMOGLOBIN 12.2 g/dL (11.5-16.0); LYMPHOCYTES # (AUTO) 0.4 10^3/uL (1.0-4.0); LYMPHOCYTES % (AUTO) 23 % (12-44); MEAN CORPUSCULAR HEMOGLOBIN 29 pg (25-34); MEAN CORPUSCULAR HGB CONC 33 g/dL (32-36); MEAN CORPUSCULAR VOLUME 89 fL (80-99); MEAN PLATELET VOLUME 11.6 fL (9.0-12.2); MONOCYTES # (AUTO) 0.1 10^3/uL (0.0-1.0); MONOCYTES % (AUTO) 5 % (0-12); NEUTROPHILS # (AUTO) 1.3 10^3/uL (1.8-7.8); NEUTROPHILS % (AUTO) 72 % (42-75); PLATELET COUNT 108 10^3/uL (130-400); WHITE BLOOD COUNT 1.8 10^3/uL (4.3-11.0)
[2019-12-05 06:12] LABS: ALBUMIN 3.3 GM/DL (3.2-4.5)
[2019-12-05 06:13] LABS: CHLORIDE 107 MMOL/L (98-107); SODIUM 140 MMOL/L (135-145)
[2019-12-05 06:14] LABS: CALCIUM 8.3 MG/DL (8.5-10.1)
[2019-12-05 06:15] LABS: GLUCOSE 210 MG/DL (70-105); TOTAL PROTEIN 6.1 GM/DL (6.4-8.2)
[2019-12-05 06:16] LABS: CARBON DIOXIDE 23 MMOL/L (21-32)
[2019-12-05 06:17] LABS: BILIRUBIN,TOTAL 0.8 MG/DL (0.1-1.0)
[2019-12-05 06:18] LABS: ALKALINE PHOSPHATASE 110 U/L (40-136)
[2019-12-05 06:19] LABS: GFR ESTIMATED > 60
[2019-12-05 06:20] LABS: BUN/CREATININE RATIO 22
[2019-12-05 06:21] LABS: ALANINE AMINOTRANSFERASE 18 U/L (0-55)
[2019-12-05] MEDS: ENOXAPARIN 40 MG/0.4 ML (LOVENOX) SYR SC SCH ×2 (06:56→17:08)
[2019-12-05] MEDS: NS IV 1000 ML 1,000 ML IV SCH ×2 (06:57→17:55)
[2019-12-05] MEDS: FUROSEMIDE 40 MG (LASIX) TAB PO SCH (08:47)
[2019-12-05] MEDS: dexAMETHasone 6 MG TAB (DECADRON) PO SCH (08:47)
[2019-12-05 08:49] VITALS: BP 101/67
[2019-12-05] MEDS ORDERED: NON-FORMULARY MEDICATION 1 EA EA (Escitalopram Oxalate 10 MG) PO SCH (09:00)
[2019-12-05 11:18] VITALS: BP 102/68
[2019-12-05] MEDS: diphenhydrAMINE 25 MG TAB (BENADRYL) PO PRN (11:56)
--- NOTE | 2019-12-05 12:03 | Progress Note - Hospitalist ---
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 She has been sick for rouhly 1 week and was tested for COVID on 11/25 and was positive. She has attempted outpatient management. Subjective/Events-last exam Pt reports still not feeling well. Very hot. No fever though. Still weak. Focused Exam Lactate Level 12/04/19 12:10: Lactic Acid Level 0.78 Objective Exam Vital Signs Vital Signs Date Time Temp Pulse Resp B/P (MAP) Pulse Ox O2 Delivery O2 Flow Rate FiO2 12/06/19 15:37 36.3 60 18 107/73 (84) 94 Nasal Cannula 1.00 Capillary Refill : Less Than 3 Seconds General Appearance: No Apparent Distress, Obese Respiratory: Lungs Clear, No Accessory Muscle Use, Other (on 2lpm NC) Cardiovascular: Regular Rate, Rhythm, No Murmur Gastrointestinal: Normal Bowel Sounds, Non Tender, Soft Extremity: No Calf Tenderness, No Pedal Edema Neurologic/Psychiatric: Alert, Oriented x3, Normal Mood/Affect Results/Procedures Lab Laboratory Tests 12/06/19 04:45 Patient resulted labs reviewed. Imaging: Reviewed Imaging Report Assessment/Plan Assessment and Plan Assess & Plan/Chief Complaint Acute hypoxic respiratory failure from COVID19 Oxygen supplementation as need to keep sats >90 Decadron Continue remdesivir, s/p plasma x1 Lovenox IVF for dehydration MAT protocol IS Zofran prn nausea Leukopenia ?due to covid Discussed with Dr Tam NIDDMII SSI DVT ppx: Lovenox Diagnosis/Problems Diagnosis/Problems (1) COVID-19 Status: Acute (2) Pneumonia Status: Acute Qualifiers: Laterality: bilateral Lung location: lower lobe of lung (3) Acute respiratory failure Status: Acute Qualifiers: Respiratory failure complication: hypoxia Qualified Codes: J96.01 - Acute respiratory failure with hypoxia (4) Non-insulin dependent type 2 diabetes mellitus Status: Chronic (5) Hypertension Status: Chronic Qualifiers: Hypertension type: essential hypertension Qualified Codes: I10 - Essential (primary) hypertension (6) Prophylactic measure Status: Acute (7) BMI 40.0-44.9, adult Status: Chronic Clinical Quality Measures DVT/VTE Risk/Contraindication: Risk Factor Score Per Nursin RFS Level Per Nursing on Admit: 4+=Very High SANDY GRAHAM MD Dec 05, 2019 12:03
[2019-12-05] MEDS: ONDANSETRON 4 MG/2 ML (SDV) Z0FRAN IV PRN ×2 (13:43→21:31)
[2019-12-05 15:47] VITALS: BP 105/70
[2019-12-05] MEDS: REMDESIVIR INJ (NON-FORMULARY) 100 MG in NS (IVPB) 230 ML IV SCH (15:53)
[2019-12-05 19:18] VITALS: BP 111/67
[2019-12-05] MEDS ORDERED: DOCUSATE SODIUM 100 MG (COLACE) CAP PO ONE (19:49)
[2019-12-05] MEDS: rOPINIRole 1 MG (REQUIP) TABLET PO SCH (20:09)
[2019-12-05] MEDS: MELATONIN 3 MG TABLET PO PRN (20:09)
[2019-12-05] MEDS: DOCUSATE SODIUM 100 MG (COLACE) CAP PO SCH (20:10)
[2019-12-05] MEDS: traZODone 50 MG (DESYREL) TAB PO SCH (20:10)
[2019-12-05 22:00] VITALS: BP 95/67
[2019-12-06] VITALS (7 sets, daily range): BP systolic 89–107; BP diastolic 58–74
[2019-12-06] MEDS: NS IV 1000 ML 1,000 ML IV SCH (01:19)
[2019-12-06 05:26] LABS: HEMOGLOBIN 11.5 g/dL (11.5-16.0); MEAN PLATELET VOLUME 12.1 fL (9.0-12.2); WHITE BLOOD COUNT 6.7 10^3/uL (4.3-11.0)
[2019-12-06 05:37] LABS: ALBUMIN 3.2 GM/DL (3.2-4.5); CHLORIDE 108 MMOL/L (98-107); POTASSIUM 3.9 MMOL/L (3.6-5.0); SODIUM 142 MMOL/L (135-145)
[2019-12-06 05:38] LABS: CALCIUM 8.1 MG/DL (8.5-10.1)
[2019-12-06 05:39] LABS: GLUCOSE 174 MG/DL (70-105); TOTAL PROTEIN 5.9 GM/DL (6.4-8.2)
[2019-12-06 05:40] LABS: CARBON DIOXIDE 26 MMOL/L (21-32)
[2019-12-06 05:41] LABS: BILIRUBIN,TOTAL 0.5 MG/DL (0.1-1.0)
[2019-12-06 05:43] LABS: ALKALINE PHOSPHATASE 91 U/L (40-136); CREATININE SERUM 0.63 MG/DL (0.60-1.30); GFR ESTIMATED > 60
[2019-12-06 05:44] LABS: BUN/CREATININE RATIO 25
[2019-12-06 05:46] LABS: ALANINE AMINOTRANSFERASE 14 U/L (0-55)
[2019-12-06] MEDS: ENOXAPARIN 40 MG/0.4 ML (LOVENOX) SYR SC SCH ×2 (06:54→17:13)
[2019-12-06] MEDS: FUROSEMIDE 40 MG (LASIX) TAB PO SCH (08:13)
[2019-12-06] MEDS: DOCUSATE SODIUM 100 MG (COLACE) CAP PO SCH ×2 (08:13→20:02)
[2019-12-06] MEDS: dexAMETHasone 6 MG TAB (DECADRON) PO SCH (08:13)
[2019-12-06] MEDS: HYDROcodone/APAP 10 MG/325 MG (LORTAB) TAB PO PRN ×2 (08:19→20:02)
[2019-12-06] MEDS: diphenhydrAMINE 25 MG TAB (BENADRYL) PO PRN (09:52)
--- NOTE | 2019-12-06 11:07 | Progress Note - Hospitalist ---
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 She has been sick for rouhly 1 week and was tested for COVID on 11/25 and was positive. She has attempted outpatient management. Subjective/Events-last exam Pt reports having persistent dry, hacking cough. Still feeling hot too. Was up to shower though and eating better. Focused Exam Lactate Level 12/04/19 12:10: Lactic Acid Level 0.78 Objective Exam Vital Signs Vital Signs Date Time Temp Pulse Resp B/P (MAP) Pulse Ox O2 Delivery O2 Flow Rate FiO2 12/06/19 08:19 Nasal Cannula 2.00 12/06/19 08:00 36.2 64 16 98/67 (77) 97 Capillary Refill : Less Than 3 Seconds General Appearance: No Apparent Distress, WD/WN, Obese Respiratory: No Crackles; Decreased Breath Sounds; No Rhonci, No Wheezing; Other (on 2lpm) Cardiovascular: Regular Rate, Rhythm, No Murmur Gastrointestinal: Normal Bowel Sounds, Non Tender, Soft Neurologic/Psychiatric: Alert, Oriented x3, Normal Mood/Affect Results/Procedures Lab Laboratory Tests 12/06/19 04:45 Patient resulted labs reviewed. Imaging: Reviewed Imaging Report Assessment/Plan Assessment and Plan Assess & Plan/Chief Complaint Acute hypoxic respiratory failure from COVID19 Oxygen supplementation as need to keep sats >90 Decadron Continue remdesivir, s/p plasma x1 Lovenox Oral intake improving, DC IVF MAT protocol IS Zofran prn nausea Leukopenia ?due to covid Discussed with Dr Tam, states likely due to viral infection NIDDMII SSI DVT ppx: Lovenox Diagnosis/Problems Diagnosis/Problems (1) COVID-19 Status: Acute (2) Pneumonia Status: Acute Qualifiers: Laterality: bilateral Lung location: lower lobe of lung (3) Acute respiratory failure Status: Acute Qualifiers: Respiratory failure complication: hypoxia Qualified Codes: J96.01 - Acute respiratory failure with hypoxia (4) Non-insulin dependent type 2 diabetes mellitus Status: Chronic (5) Hypertension Status: Chronic Qualifiers: Hypertension type: essential hypertension Qualified Codes: I10 - Essential (primary) hypertension (6) Prophylactic measure Status: Acute (7) BMI 40.0-44.9, adult Status: Chronic Clinical Quality Measures DVT/VTE Risk/Contraindication: Risk Factor Score Per Nursin RFS Level Per Nursing on Admit: 4+=Very High SANDY GRAHAM MD Dec 06, 2019 11:07 am
[2019-12-06] MEDS ORDERED: FUROSEMIDE 40 MG/4 ML INJ (LASIX) IVP NR (11:15)
[2019-12-06] MEDS: REMDESIVIR INJ (NON-FORMULARY) 100 MG in NS (IVPB) 230 ML IV SCH (16:03)
[2019-12-06] MEDS: rOPINIRole 1 MG (REQUIP) TABLET PO SCH (20:02)
[2019-12-06] MEDS: guaiFENesin SYRUP 100 MG/5 ML 10 ML (ROBITUSSIN SF) PO PRN (20:03)
[2019-12-06] MEDS: MELATONIN 3 MG TABLET PO PRN (20:03)
[2019-12-06] MEDS: traZODone 50 MG (DESYREL) TAB PO SCH (20:03)
[2019-12-07] MEDS: ENOXAPARIN 40 MG/0.4 ML (LOVENOX) SYR SC SCH ×2 (06:29→18:02)
[2019-12-07 06:40] LABS: HEMOGLOBIN 12.2 g/dL (11.5-16.0); MEAN PLATELET VOLUME 12.3 fL (9.0-12.2); WHITE BLOOD COUNT 8.1 10^3/uL (4.3-11.0)
[2019-12-07 07:06] LABS: ALBUMIN 3.5 GM/DL (3.2-4.5)
[2019-12-07 07:07] LABS: CHLORIDE 104 MMOL/L (98-107); POTASSIUM 3.3 MMOL/L (3.6-5.0); SODIUM 143 MMOL/L (135-145)
[2019-12-07 07:08] LABS: CALCIUM 8.1 MG/DL (8.5-10.1)
[2019-12-07 07:09] LABS: GLUCOSE 200 MG/DL (70-105); TOTAL PROTEIN 6.4 GM/DL (6.4-8.2)
[2019-12-07 07:10] LABS: CARBON DIOXIDE 27 MMOL/L (21-32)
[2019-12-07 07:11] LABS: BILIRUBIN,TOTAL 0.5 MG/DL (0.1-1.0)
[2019-12-07 07:12] LABS: ALKALINE PHOSPHATASE 97 U/L (40-136)
[2019-12-07 07:13] LABS: CREATININE SERUM 0.74 MG/DL (0.60-1.30); GFR ESTIMATED > 60
[2019-12-07 07:14] LABS: BUN/CREATININE RATIO 22
[2019-12-07 07:16] LABS: ALANINE AMINOTRANSFERASE 13 U/L (0-55)
[2019-12-07 08:48] VITALS: BP 107/66
[2019-12-07] MEDS: FUROSEMIDE 40 MG (LASIX) TAB PO SCH (08:50)
[2019-12-07] MEDS: dexAMETHasone 6 MG TAB (DECADRON) PO SCH (08:50)
[2019-12-07] MEDS: DOCUSATE SODIUM 100 MG (COLACE) CAP PO SCH ×2 (08:50→20:00)
--- NOTE | 2019-12-07 09:36 | Progress Note - Hospitalist ---
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 She has been sick for roughly 1 week and was tested for COVID on 11/25 and was positive. She has attempted outpatient management but continued to feel worse. She was mildly hypoxic at 89% on room air and required 2lpm to bring her up. She was admitted for further management. Subjective/Events-last exam She is feeling a bit better today. She gets short of breath with activity. She still has a cough. She is not having any more fevers. She is not eating or drinking much. Focused Exam Lactate Level 12/04/19 12:10: Lactic Acid Level 0.78 Objective Exam Vital Signs Vital Signs Date Time Temp Pulse Resp B/P (MAP) Pulse Ox O2 Delivery O2 Flow Rate FiO2 12/07/19 08:48 36.4 62 18 107/66 (80) 98 Nasal Cannula 1.50 Capillary Refill : Less Than 3 Seconds General Appearance: No Apparent Distress, Obese Respiratory: Lungs Clear, Normal Breath Sounds, No Respiratory Distress Cardiovascular: Regular Rate, Rhythm, No Edema, No Murmur Gastrointestinal: Normal Bowel Sounds, Non Tender, Soft Extremity: Normal Inspection, Non Tender, No Pedal Edema Neurologic/Psychiatric: Alert, Oriented x3, No Motor/Sensory Deficits, Normal Mood/Affect Skin: Normal Color, Warm/Dry Results/Procedures Lab Laboratory Tests 12/07/19 03:47 12/07/19 04:37 Patient resulted labs reviewed. Imaging: Reviewed Imaging Report Assessment/Plan Assessment and Plan Assess & Plan/Chief Complaint Acute respiratory failure due to COVID-19 Oxygen supplementation as need to keep sats >94 Decadron Remdesivir s/p plasma x1 Lovenox MAT IS Leukopenia Likely due to covid Discussed with Dr Tam, states likely due to viral infection NIDDMII Steroid induced hypoglycemia SSI DVT ppx: Lovenox Diagnosis/Problems Diagnosis/Problems (1) Acute respiratory failure due to COVID-19 Status: Acute (2) Leukopenia Status: Acute (3) Non-insulin dependent type 2 diabetes mellitus Status: Chronic (4) Steroid-induced hyperglycemia Status: Acute (5) Morbid obesity Status: Chronic Clinical Quality Measures DVT/VTE Risk/Contraindication: Risk Factor Score Per Nursin RFS Level Per Nursing on Admit: 4+=Very High MAYO MORSE MD Dec 07, 2019 09:36
[2019-12-07 12:00] VITALS: BP 98/59
[2019-12-07] MEDS: REMDESIVIR INJ (NON-FORMULARY) 100 MG in NS (IVPB) 230 ML IV SCH (16:34)
[2019-12-07 16:47] VITALS: BP 109/78
[2019-12-07] MEDS: MELATONIN 3 MG TABLET PO PRN (20:00)
[2019-12-07] MEDS: traZODone 50 MG (DESYREL) TAB PO SCH (20:00)
[2019-12-07] MEDS: HYDROcodone/APAP 10 MG/325 MG (LORTAB) TAB PO PRN (20:01)
[2019-12-07] MEDS: guaiFENesin SYRUP 100 MG/5 ML 10 ML (ROBITUSSIN SF) PO PRN (20:01)
[2019-12-07] MEDS: rOPINIRole 1 MG (REQUIP) TABLET PO SCH (20:01)
[2019-12-08 00:14] VITALS: BP 112/75
[2019-12-08 06:14] LABS: HEMOGLOBIN 11.3 g/dL (11.5-16.0); MEAN PLATELET VOLUME 11.8 fL (9.0-12.2); WHITE BLOOD COUNT 6.6 10^3/uL (4.3-11.0)
[2019-12-08 06:28] LABS: ALBUMIN 3.2 GM/DL (3.2-4.5); CHLORIDE 106 MMOL/L (98-107); POTASSIUM 3.4 MMOL/L (3.6-5.0); SODIUM 143 MMOL/L (135-145)
[2019-12-08 06:30] LABS: CALCIUM 8.1 MG/DL (8.5-10.1)
[2019-12-08 06:31] LABS: GLUCOSE 155 MG/DL (70-105); TOTAL PROTEIN 5.7 GM/DL (6.4-8.2)
[2019-12-08 06:32] LABS: CARBON DIOXIDE 28 MMOL/L (21-32)
[2019-12-08 06:33] LABS: BILIRUBIN,TOTAL 0.5 MG/DL (0.1-1.0)
[2019-12-08 06:34] LABS: ALKALINE PHOSPHATASE 81 U/L (40-136); CREATININE SERUM 0.63 MG/DL (0.60-1.30); GFR ESTIMATED > 60
[2019-12-08 06:35] LABS: BUN/CREATININE RATIO 21
[2019-12-08 06:37] LABS: ALANINE AMINOTRANSFERASE 13 U/L (0-55)
[2019-12-08] MEDS: ENOXAPARIN 40 MG/0.4 ML (LOVENOX) SYR SC SCH (06:38)
[2019-12-08] MEDS ORDERED: POTASSIUM CL 10MEQ/50ML IVPB 50 ML IV SCH (07:45)
[2019-12-08] MEDS ORDERED: KCL 20 MEQ TAB (K-DUR) PO SCH (07:45)
[2019-12-08] MEDS ORDERED: MAGNESIUM 1 GM/100 ML IVPB 100 ML IV SCH (07:45)
[2019-12-08 08:00] VITALS: BP 104/55
[2019-12-08] MEDS: guaiFENesin SYRUP 100 MG/5 ML 10 ML (ROBITUSSIN SF) PO PRN (08:09)
[2019-12-08] MEDS: DOCUSATE SODIUM 100 MG (COLACE) CAP PO SCH (08:09)
[2019-12-08] MEDS: dexAMETHasone 6 MG TAB (DECADRON) PO SCH (08:09)
[2019-12-08] MEDS: FUROSEMIDE 40 MG (LASIX) TAB PO SCH (08:09)
[2019-12-08] MEDS: POTASSIUM CL 10MEQ/50ML IVPB 50 ML IV SCH ×2 (09:19→09:47)
[2019-12-08] MEDS: HYDROcodone/APAP 10 MG/325 MG (LORTAB) TAB PO PRN (09:23)
--- NOTE | 2019-12-08 10:28 | NUR ---
pt SpO2 did not drop below 91% on RA while walking. Addendum: 12/08/19 at 1029 by INDERJIT STEEL RT Amended: Links added.
[2019-12-08] MEDS: REMDESIVIR INJ (NON-FORMULARY) 100 MG in NS (IVPB) 230 ML IV SCH (10:48)
--- NOTE | 2019-12-08 13:02 | Discharge Summary ---
Discharge Summary Hospital Course Was the Problem List Reviewed?: Yes Problems/Dx: (1) Acute respiratory failure due to COVID-19 Status: Acute (2) Leukopenia Status: Resolved (3) Non-insulin dependent type 2 diabetes mellitus Status: Chronic (4) Steroid-induced hyperglycemia Status: Acute (5) Morbid obesity Status: Chronic Hospital Course Date of Admission: Dec 04, 2019 at 14:05 Admission Diagnosis : acute respiratory failure due to COVID-19 Family Physician/Provider: Jessica Dukes MD Date of Discharge: 12/08/19 Discharge Diagnosis: acute respiratory failure due to COVID-19 Hospital Course: Eleanor Amezcua is a 59-year-old female who was admitted with acute respiratory failure due to COVID-19. She was started on IV Decadron and Remdesivir. She was also given convalescent plasma. Her symptoms and oxygenation improved. An oxygen study revealed no oxygen need at the time of discharge. She was discharged home in stable condition. She should follow-up with her primary care physician, Dr. Dukes, in 1-2 weeks. Labs and Pending Lab Test: Laboratory Tests 12/08/19 05:50: White Blood Count 6.6, Red Blood Count 3.92, Hemoglobin 11.3L, Hematocrit 35, Mean Corpuscular Volume 89, Mean Corpuscular Hemoglobin 29, Mean Corpuscular Hemoglobin Concent 33, Red Cell Distribution Width 12.8, Platelet Count 164, Mean Platelet Volume 11.8, Sodium Level 143, Potassium Level 3.4L, Chloride Level 106, Carbon Dioxide Level 28, Anion Gap 9, Blood Urea Nitrogen 13, Creatinine 0.63, Estimat Glomerular Filtration Rate > 60, BUN/Creatinine Ratio 21, Glucose Level 155H, Calcium Level 8.1L, Corrected Calcium 8.7, Magnesium Level 2.0, Total Bilirubin 0.5, Aspartate Amino Transf (AST/SGOT) 16, Alanine Aminotransferase (ALT/SGPT) 13, Alkaline Phosphatase 81, Total Protein 5.7L, Albumin 3.2 Microbiology 12/04/19 MRSA Screen - Final, Complete MRSA not isolated Home Meds Active Promethazine Tablet (Promethazine HCl) 25 Mg Tablet 25 Mg PO Q6H PRN Reported Hydrocodone-Acetamin 10-325 mg (Hydrocodone/Acetaminophen) 1 Each Tablet 1 Tab PO Q4H Escitalopram Oxalate 10 Mg Tablet 10 Mg PO DAILY Trazodone HCl 50 Mg Tablet 50 Mg PO HS Ropinirole HCl 4 Mg Tablet 4 Mg PO HS Baclofen 20 Mg Tablet 20 Mg PO Q8H PRN Ondansetron HCl 4 Mg Tablet 4 Mg PO Q4H PRN Potassium Chloride 20 Meq Tab.er.prt 40 Meq PO DAILY TAKES 2 (20 MEQ) TABLETS Furosemide 40 Mg Tablet 80 Mg PO DAILY TAKES 2 (40 MG) TABLETS Assessment/Pt Instructions Take medications as prescribed. Follow-up with your primary care physician. You will be required to isolate when you return home. The health department should be in contact with you with further information. Return with worsening shortness of breath or if you feel like you're getting worse. Discharge Planning: <30 minutes discharge planning Discharge Instructions Discharge Diet: No Restrictions Activity as Tolerated: Yes Discharge Physical Examination Vital Signs Vital Signs Date Time Temp Pulse Resp B/P (MAP) Pulse Ox O2 Delivery O2 Flow Rate FiO2 12/08/19 10:25 92 91 12/08/19 09:54 36.2 12/08/19 08:00 Room Air 12/08/19 08:00 18 104/55 (71) 12/07/19 16:47 2.00 General Appearance: No Apparent Distress, Obese Respiratory: Lungs Clear, Normal Breath Sounds, No Respiratory Distress Cardiovascular: Regular Rate, Rhythm, No Edema, No Murmur Gastrointestinal: Normal Bowel Sounds, Non Tender, Soft Extremity: Normal Inspection, Non Tender, No Pedal Edema Skin: Normal Color, Warm/Dry Neurologic/Psychiatric: Alert, Oriented x3, No Motor/Sensory Deficits, Normal Mood/Affect Allergies: Coded Allergies: Penicillins (Verified Allergy, Unknown, 04/22/17) Copy Copies To 1: JESSICA DUKES MD Discharge Summary Date of Admission Dec 04, 2019 at 14:05 Date of Discharge Discharge Date: Dec 08, 2019 Discharge Time: 13:02 Admission Diagnosis Acute hypoxic respiratory failure from COVID19 Discharge Diagnosis Acute respiratory failure due to COVID-19 (1) Acute respiratory failure due to COVID-19 Status: Acute (2) Leukopenia Status: Resolved (3) Non-insulin dependent type 2 diabetes mellitus Status: Chronic (4) Steroid-induced hyperglycemia Status: Acute (5) Morbid obesity Status: Chronic Clinical Quality Measures DVT/VTE Risk/Contraindication: Risk Factor Score Per Nursin RFS Level Per Nursing on Admit: 4+=Very High MAYO MORSE MD Dec 08, 2019 13:02
== END 2019-12-08 13:00 | disposition home or self-care (01) | DRG 177 ==
LOC: EDUNIT# 10:45 → ER 10:48 → 4TH 14:05
PROVIDERS: ADMIT Family Medicine; ATTEND Internal Medicine
DX: U07.1 COVID-19 (principal); J96.01 Acute respiratory failure with hypoxia; J12.89 Other viral pneumonia; Z68.41 Body mass index [BMI] 40.0-44.9, adult; R73.9 Hyperglycemia, unspecified; T38.0X5A Adverse effect of glucocorticoids and synthetic analogues, initial encounter; E11.9 Type 2 diabetes mellitus without complications; D72.819 Decreased white blood cell count, unspecified; E66.01 Morbid (severe) obesity due to excess calories
CPT/HCPCS: 36415; 71045; 80053; 82728; 83605; 83615; 83735; 84145; 84484; 85025; 85027; 85379; 85384; 85610; 85730; 86141; 86900; 86901; 87081; 93005; 93041; 94761

== ENCOUNTER → 2020-05-12 | Outpatient (CLI) | payer OTHER ==
[~2020-05-12] MED LIST changes: +ESCI-2 PO; +HYDR-3820 PO; -OXYC-471 PO; +OXYC1TAB11 PO; +TRZ50T PO
[2020-05-12 11:25] LABS: BASOPHILS % (AUTO) 1 % (0-10); EOSINOPHILS # (AUTO) 0.3 10^3/uL (0.0-0.3); EOSINOPHILS % (AUTO) 6 % (0-10); HEMATOCRIT 41 % (35-52); HEMOGLOBIN 13.3 g/dL (11.5-16.0); LYMPHOCYTES # (AUTO) 1.4 10^3/uL (1.0-4.0); LYMPHOCYTES % (AUTO) 33 % (12-44); MEAN CORPUSCULAR HEMOGLOBIN 29 pg (25-34); MEAN CORPUSCULAR HGB CONC 32 g/dL (32-36); MEAN CORPUSCULAR VOLUME 90 fL (80-99); MEAN PLATELET VOLUME 10.6 fL (9.0-12.2); MONOCYTES # (AUTO) 0.4 10^3/uL (0.0-1.0); MONOCYTES % (AUTO) 9 % (0-12); NEUTROPHILS # (AUTO) 2.2 10^3/uL (1.8-7.8); NEUTROPHILS % (AUTO) 51 % (42-75); PLATELET COUNT 154 10^3/uL (130-400); WHITE BLOOD COUNT 4.2 10^3/uL (4.3-11.0)
[2020-05-12 11:41] LABS: ALANINE AMINOTRANSFERASE 13 U/L (0-55); ALBUMIN 4.1 GM/DL (3.2-4.5); ALKALINE PHOSPHATASE 103 U/L (40-136); BILIRUBIN,TOTAL 0.7 MG/DL (0.1-1.0); BUN/CREATININE RATIO 14; CALCIUM 8.7 MG/DL (8.5-10.1); CARBON DIOXIDE 27 MMOL/L (21-32); CHLORIDE 106 MMOL/L (98-107); CREATININE SERUM 0.81 MG/DL (0.60-1.30); GFR ESTIMATED > 60; GLUCOSE 109 MG/DL (70-105); POTASSIUM 3.6 MMOL/L (3.6-5.0); SODIUM 141 MMOL/L (135-145); TOTAL PROTEIN 6.8 GM/DL (6.4-8.2)
== END ==
LOC: LAB 10:59
PROVIDERS: ATTEND Family Medicine
DX: R53.81 Other malaise (principal); R53.83 Other fatigue; Z86.16 Personal history of COVID-19
CPT/HCPCS: 36415; 80053; 85025

== ENCOUNTER → 2020-06-01 | Outpatient (CLI) | payer OTHER ==
--- NOTE | 2020-06-01 11:48 | Diagnostic Imaging Report ---
INDICATION: Right arm numbness and tingling symptoms 2 weeks in duration. Cervical body heights are maintained. There are degenerative changes to the discs and endplates with slight grade 1 degenerative retrolisthesis of C4 on C5 and C5 on C6 of about 2 mm. There is mid to lower cervical hypertrophic facet arthrosis. The prevertebral space is normal. The odontoid is intact. IMPRESSION: Lower cervical spondylosis and facet arthrosis with grade 1 degenerative listheses. Given the magnitude of degenerative changes in the clinical history consider follow-up nonemergent cervical spinal MRI as further evaluation. Dictated by: Dictated on workstation # [id number]
== END ==
LOC: RAD 10:53
PROVIDERS: ATTEND Family Medicine
DX: M47.812 Spondylosis without myelopathy or radiculopathy, cervical region (principal); M43.12 Spondylolisthesis, cervical region
CPT/HCPCS: 72040

== ENCOUNTER 2020-11-09 06:19 | Outpatient (CLI) | payer OTHER ==
[~2020-11-09] VITALS: Ht 162 cm; Wt 117.9 kg
== END 2020-11-09 17:48 | disposition home or self-care (01) ==
LOC: PREOP 06:19
PROVIDERS: ATTEND Orthopaedic Surgery
DX: Z01.818 Encounter for other preprocedural examination (principal)

== ENCOUNTER 2020-11-16 07:30 | Day surgery (SDC) | payer OTHER ==
--- NOTE | 2020-11-09 06:45 | HISTORY AND PHYSICAL ---
DATE OF SERVICE: ADMISSION HISTORY AND PHYSICAL This will be for outpatient surgery on 11/16/2020. Surgery will be right shoulder arthroscopy. HISTORY OF PRESENT ILLNESS: The patient is a 60-year-old right hand dominant female with reports of progressive worsening right shoulder pain. She had loss of motion with associated pain in the shoulder. She reports that she has tried rest, activity modifications, anti-inflammatories without relief. Similar situation on the left shoulder, which responded well to debridement and arthroscopy. REVIEW OF SYSTEMS: No chest pain, no shortness of breath, no dysuria. PAST MEDICAL HISTORY: Osteoarthritis, hypertension. PAST SURGICAL HISTORY: Bilateral knee and hip replacements, cholecystectomy. Open reduction and internal fixation, left fifth metatarsal. FAMILY HISTORY: Noncontributory. PRIMARY CARE PROVIDER: Dr. Doherty. MEDICATIONS: Baclofen, potassium, Requip, Lasix. ALLERGIES: PENICILLIN. SOCIAL HISTORY: The patient is a former smoker. Denies alcohol use. RADIOGRAPHS: Reveal moderate glenohumeral arthrosis with questionable cyst in the humeral head. PHYSICAL EXAMINATION: GENERAL: The patient is well-developed, well-nourished, in no acute distress. HEENT: Normocephalic, atraumatic. Pupils are equal, round, reactive to light. Oropharynx is clear. NECK: Supple, no lymphadenopathy. LUNGS: Clear to auscultation bilaterally. HEART: Regular rate and rhythm. ABDOMEN: Soft, nontender, nondistended. EXTREMITIES: Right shoulder demonstrates active forward elevation of 160 degrees, passive is 170. She has pain beyond 90 degrees of forward elevation, external rotation of 70 degrees, internal rotation to her beltline. She has a positive Hawkin sign. Slight weakness with abduction and external rotation. 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 PLAN: Right shoulder arthroscopy, acromioplasty, possible rotator cuff repair and chondroplasty. The risks, benefits, options, ramifications and recovery were discussed at length with the patient. She understands and wishes to proceed. Job ID: [id number] DocumentID: [id number] Dictated Date: 11/05/2020 09:54:02 Patient Access Associate Date: 11/05/2020 10:14:40 Dictated By: IBIS CAPPS MD
[2020-11-16] VITALS (10 sets, daily range): BP systolic 133–160; BP diastolic 90–98
[~2020-11-16] VITALS: Ht 162 cm; Wt 117.9 kg
[~2020-11-16 07:30] MED LIST changes: +oxyCODONE/APAP 5/325MG (PERCOCET 5) TABLET PO PRN
[2020-11-16] MEDS ORDERED: ceFAZolin INJECTION 1,000 MG in WATER (STERILE) FOR INJECTION 10 ML IV ONE (07:45)
[2020-11-16] MEDS ORDERED: LACTATED RINGERS 1,000 ML IV PRN (07:45)
[2020-11-16] MEDS ORDERED: morphine PF (DURAMORPH) 10 MG/10 ML AMP ONE (07:50)
[2020-11-16] MEDS ORDERED: BUPIVACAINE 0.25% 30 ML (SENSORCAINE) VIAL ONE (07:50)
[2020-11-16] MEDS ORDERED: fentaNYL INJ 100 MCG/2 ML AMP ONE ×2 (08:28→09:04)
[2020-11-16] MEDS ORDERED: MIDAZOLAM 2 MG/2 ML (VERSED) VIAL ONE (08:28)
--- NOTE | 2020-11-16 09:13 | Progress Note-Pre Operative ---
Pre-Operative Progress Note H&P Reviewed The H&P was reviewed, patient examined and no changes noted. Date Seen by Provider: Nov 16, 2020 Time Seen by Provider: 09:00 Date H&P Reviewed: Nov 16, 2020 Time H&P Reviewed: 07:11 Pre-Operative Diagnosis: right shoulder chondromalacia and SLAP repair and index finger cyst IBIS CAPPS MD Nov 16, 2020 09:13
[2020-11-16] MEDS ORDERED: fentaNYL INJ 100 MCG/2 ML AMP IVP ONE ×2 (09:15→10:30)
--- NOTE | 2020-11-16 09:16 | Progress Note-Post Operative ---
Post-Operative Progess Note Surgeon (s)/Door Furring Installer (s) Surgeon IBIS CAPPS MD Door Furring Installer: Yossi Mulligan Pre-Operative Diagnosis right shoulder chondromalacia and SLAP repair and index finger cyst Post-Operative Diagnosis right shoulder chondromalacia of the glenoid and humeral head and SLAP tear, labral tear and index finger cyst Procedure & Operative Findings Date of Procedure 11/16/20 Procedure Performed/Findings right shoulder arthroscopic biceps teonotomy, labral debridement and chondroplasty of the glenoid and humeral head and left index finger cyst excision Anesthesia Type GETA Estimated Blood Loss Estimated blood loss (mL): minimal Specimens/Packing Specimens Removed cyst Packing: none IBIS CAPPS MD Nov 16, 2020 09:16
[2020-11-16] MEDS ORDERED: proPOfol 200 MG/20 ML (DIPRIVAN) VIAL IV ONE (09:58)
[2020-11-16] MEDS ORDERED: GLYCOPYRROLATE 0.2 MG/ML (ROBINUL) 2 ML VIAL ONE (09:58)
[2020-11-16] MEDS ORDERED: NEOSTIGMINE 3 MG/3 ML VIAL ONE (09:58)
[2020-11-16] MEDS ORDERED: ONDANSETRON 4 MG/2 ML (SDV) Z0FRAN ONE (09:58)
[2020-11-16] MEDS ORDERED: ROCURONIUM 10 MG/ML 5 ML SYRINGE IV ONE (09:58)
[2020-11-16] MEDS ORDERED: LIDOCAINE PF 2% 5 ML (XYLOCAINE) VIAL ONE (09:58)
--- NOTE | 2020-11-16 10:17 | Anesthesia-General Post-Op ---
General Patient Condition Mental Status/LOC: Same as Preop Cardiovascular: Satisfactory Nausea/Vomiting: Absent Respiratory: Satisfactory Pain: Controlled Complications: Absent Post Op Complications Complications None Follow Up Care/Instructions Patient Instructions None needed. Anesthesia/Patient Condition Patient Condition Patient is doing well, no complaints, stable vital signs, no apparent adverse anesthesia problems. No complications reported per nursing. WISAM HENDRICKS CRNA Nov 16, 2020 10:17
[2020-11-16] MEDS ORDERED: ONDANSETRON 4 MG/2 ML (SDV) Z0FRAN IVP PRN (10:30)
[2020-11-16] MEDS ORDERED: morphine INJ 10 MG/ML 1ML (SYR OR VIAL) IVP ONE (10:30)
--- NOTE | 2020-11-16 14:54 | OPERATIVE REPORT ---
DATE OF SERVICE: PREOPERATIVE DIAGNOSES: 1. Right shoulder SLAP tear. 2. Right shoulder labral tear. 3. Right shoulder chondromalacia of the glenoid. 4. Right shoulder chondromalacia of the humeral head. 5. Left index finger ganglion cyst. POSTOPERATIVE DIAGNOSES: 1. Right shoulder SLAP tear. 2. Right shoulder labral tear. 3. Right shoulder chondromalacia of the glenoid. 4. Right shoulder chondromalacia of the humeral head. 5. Left index finger ganglion cyst. PROCEDURES PERFORMED: 1. Right shoulder arthroscopic biceps tenotomy. 2. Right shoulder arthroscopic labral debridement. 3. Right shoulder arthroscopic chondroplasty of the humeral head. 4. Right shoulder arthroscopic chondroplasty of the glenoid. 5. Left index finger cyst excision. SURGEON: Reece Capps MD. TELECOMMUNICATOR: Yossi Mulligan, who assisted throughout the procedure and closed the incisions. ANESTHESIA: General endotracheal by Merari Mcdonald CRNA. TOURNIQUET TIME: Not applicable. ESTIMATED BLOOD LOSS: Minimal. DRAINS: None. COMPLICATIONS: None. POSTOPERATIVE PLAN: Sling wear for comfort with progressive range of motion as symptoms allow on the right shoulder. The patient was transferred to the recovery room awake and stable condition. STATEMENT OF MEDICAL NECESSITY: The patient is a 60-year-old female with complaints of progressively worsening right shoulder pain and stiffness. Radiographs revealed moderate glenohumeral arthrosis. She also had a positive Greenup's maneuver. The patient was counseled that an arthroscopy could help with her mechanical symptoms, but would not cure her arthritis and due to functional impairment and failure to improve with conservative measures, the patient elected to proceed with surgical intervention. Examination under anesthesia revealed forward elevation of 170 degrees, external rotation of 80 degrees, and internal rotation of 70 degrees. Arthroscopic findings demonstrated grade IV chondral loss over the central portion of the glenoid in a 15 x 15 area and over the central portion of the humeral head in a 15 x 15 area with surrounding grade III chondral flaps at the periphery of both lesions. There was a type 2 SLAP tear with a degenerative flap tearing of the anterior aspect of the labrum. The rotator cuff demonstrated undersurface fraying at the anterior aspect of the supraspinatus, but no full thickness tearing throughout. DESCRIPTION OF PROCEDURE: After the risks and benefits of the procedure were discussed and questions were answered, an informed consent was signed and placed on the chart, the operative site was confirmed in the preoperative holding area initialed by the surgeon. The patient was then transferred to the operating room and after adequate levels of general endotracheal anesthetic were obtained, a timeout was called, confirming the operative sites. The left and right upper extremity were prepped and draped in the usual sterile fashion. There was a dorsal cyst over the DIP joint of the index finger, which was excised in an elliptical fashion and then closed with 4-0 nylon in a simple interrupted fashion. The shoulder joint was injected with 60 mL of fluid after an examination under anesthesia. A posterior portal was placed under direct visualization. An anterior portal was created in the interval between biceps, subscapularis and glenoid. The biceps anchor was released and the stump was debrided with a shaver. The unstable chondral flaps on the glenoid and humeral head were debrided with a shaver back to a stable edge. Shoulder joint was copiously irrigated. The shoulder ports were closed with 4-0 nylon in a simple interrupted fashion. Shoulder was injected with Duramorph. The port sites were infiltrated with plain Marcaine. A soft dressing was applied. The patient was transferred to the recovery room awake and in a stable condition. Job ID: [id number] DocumentID: [id number] Dictated Date: 11/16/2020 10:11:56 Acid Treater Date: 11/16/2020 14:53:38 Dictated By: REECE CAPPS MD
== END 2020-11-16 12:32 | disposition home or self-care (01) ==
LOC: SDC 07:30
PROVIDERS: ATTEND Orthopaedic Surgery
DX: S43.431A Superior glenoid labrum lesion of right shoulder, initial encounter (principal); M67.48 Ganglion, other site; M94.211 Chondromalacia, right shoulder; I10 Essential (primary) hypertension; F17.210 Nicotine dependence, cigarettes, uncomplicated; G43.909 Migraine, unspecified, not intractable, without status migrainosus; G62.9 Polyneuropathy, unspecified; E66.9 Obesity, unspecified; M19.011 Primary osteoarthritis, right shoulder; M25.811 Other specified joint disorders, right shoulder; Z79.899 Other long term (current) drug therapy; Z79.891 Long term (current) use of opiate analgesic; Z68.41 Body mass index [BMI] 40.0-44.9, adult; Z96.643 Presence of artificial hip joint, bilateral; Z96.653 Presence of artificial knee joint, bilateral
CPT/HCPCS: 87081

== ENCOUNTER → 2020-12-19 | Outpatient (CLI) | payer OTHER ==
[~2020-12-19] MED LIST changes: -oxyCODONE/APAP 5/325MG (PERCOCET 5) TABLET PO PRN
--- NOTE | 2020-12-20 12:28 | Diagnostic Imaging Report ---
Indication: Routine screening. Comparison is made with prior mammogram 07/23/2018 and 05/25/2015. 2-D and 3-D bilateral screening mammography was performed with CAD. Scattered fibroglandular densities are identified bilaterally. Intraparenchymal lymph node in the outer left breast appears stable. No spiculated mass or malignant-appearing microcalcifications are identified. Axillae are unremarkable. IMPRESSION: BI-RADS Category 2 No mammographic features suspicious for malignancy are identified. ACR BI-RADS Category 2: Benign findings. Result letter will be mailed to the patient. Note: At least 10% of breast cancer is not imaged by mammography. Dictated by: Dictated on workstation # [id number]
== END ==
LOC: RAD 15:45
PROVIDERS: ATTEND Nurse Practitioner Family
DX: Z12.31 Encounter for screening mammogram for malignant neoplasm of breast (principal)
CPT/HCPCS: 77063; 77067

== ENCOUNTER 2020-12-29 13:50 | Outpatient (CLI) | payer OTHER ==
[~2020-12-29] VITALS: Ht 162.6 cm; Wt 124.7 kg
[2020-12-29] MEDS ORDERED: HYDR-3820 PO (13:58)
== END 2020-12-29 15:15 | disposition home or self-care (01) ==
LOC: PREOP 13:50
PROVIDERS: ATTEND Surgery
DX: Z01.818 Encounter for other preprocedural examination (principal)

== ENCOUNTER 2021-01-02 16:13 | Observation (INO) | payer OTHER ==
[~2021-01-02] VITALS: Ht 162.5 cm; Wt 128.5 kg
--- NOTE | 2021-01-02 16:25 | ED Chest Pain ---
General Stated Complaint: CHEST TIGHTNESS,SOB,NAUSEA Source: patient Exam Limitations: no limitations History of Present Illness Date Seen by Provider: Jan 02, 2021 Time Seen by Provider: 16:23 Initial Comments To ER with about a 1 week history of mid central chest pain not exacerbated or alleviated by anything that she can identify. She also has nausea and dyspnea with this. She has a sensation of heartburn and took a Prilosec but did not notice any improvement. She initially thought this might be related to anxiety as her mother was recently hospitalized. No cough no fever no chills. She has had Covid in November of last year and vaccinated in July of this year with Moderna. Timing/Duration: 1-2 days Severity/Quality: moderate Radiation: no radiation Activities at Onset: none ASA po CLINICAL BIOSTATISTICS DIRECTOR: No NTG SL CLINICAL BIOSTATISTICS DIRECTOR: No Associated Symptoms: nausea/vomiting Allergies and Home Medications Allergies Coded Allergies: Penicillins (Verified Allergy, Unknown, 11/09/20) Patient Home Medication List Home Medication List Reviewed: Yes Furosemide (Furosemide) 40 Mg Tablet, 80 MG PO DAILY, (Reported) Entered as Reported by: DYLAN YOUSSEF on 04/23/17 1516 Hydrocodone/Acetaminophen (Hydrocodone-Acetamin 10-325 mg) 1 Each Tablet, 1 EACH PO PRN, (Reported) Entered as Reported by: MAE CAMPOS on 12/29/20 1358 Ondansetron HCl (Ondansetron HCl) 4 Mg Tablet, 4 MG PO Q4H PRN for NAUSEA/VOMITING-1ST LINE, (Reported) Entered as Reported by: DYLAN YOUSSEF on 04/23/17 1516 Potassium Chloride (Potassium Chloride) 20 Meq Tab.er.prt, 40 MEQ PO DAILY, (Reported) Entered as Reported by: DYLAN YOUSSEF on 04/23/17 1516 Ropinirole HCl (Ropinirole HCl) 4 Mg Tablet, 4 MG PO HS, (Reported) Entered as Reported by: RAMILA CROOKS on 05/14/19 1433 Trazodone HCl (Trazodone HCl) 50 Mg Tablet, 50 MG PO HS, (Reported) Entered as Reported by: PREETI DIMAS on 12/04/19 1653 Discontinued Medications Baclofen (Baclofen) 20 Mg Tablet, 20 MG PO Q8H PRN for MUSCLE SPASMS, (Reported) Discontinued Reason: No Longer Taking Entered as Reported by: DYLAN YOUSSEF on 04/23/17 1516 Review of Systems Review of Systems Constitutional: see HPI EENTM: No Symptoms Reported Respiratory: No Symptoms Reported Cardiovascular: See HPI, Chest Pain Gastrointestinal: See HPI, Nausea Genitourinary: No Symptoms Reported Musculoskeletal: no symptoms reported Skin: no symptoms reported Psychiatric/Neurological: No Symptoms Reported Endocrine: No Symptoms Reported Past Iremzcv-Mvezhh-Xxvfno Hx Immunizations Up To Date PED Vaccines UTD: Yes First/Initial COVID19 Vaccinat: YES Second COVID19 Vaccination Ren: YES Third COVID19 Vaccination Date: NA Seasonal Allergies Seasonal Allergies: Yes Past Medical History Surgeries: Yes ( BILAT THR, BILAT TKR, left shoulder, GASTRIC SLEEVE, LEFT FOOT) Gallbladder, Orthopedic Respiratory: No Currently Using CPAP: No Currently Using BIPAP: No Cardiac: Yes Chronic Edema/Swelling Neurological: Yes (Restless leg syndrome) Headaches /Migraines Reproductive Disorders: No Sexually Transmitted Disease: No Genitourinary: No Gastrointestinal: No Musculoskeletal: Yes Arthritis, Fractures Endocrine: No HEENT: No Hearing Impairment: Denies Cancer: No Psychosocial: No Integumentary: No Blood Disorders: No Family Medical History Arthritis 19 MOTHER Cataracts 19 MOTHER G8 BROTHER Diabetes mellitus 19 MOTHER Physical Exam Vital Signs Vital Signs - First Documented 01/02/21 16:13 Pulse 98 Resp 18 B/P (MAP) 124/99 (107) Pulse Ox 98 O2 Delivery Room Air Capillary Refill : Height, Weight, BMI Height: 5'4.00" Weight: 270lbs. 0.0oz. 122.070632pb; 47.16 BMI Method:Stated General Appearance: No Apparent Distress, WD/WN, Other (Alert no distress. A little tachypneic with an oxygen saturation of 96% on room air and a heart rate in the 90s sinus. Her EKG shows low voltage but no ST segment changes. The infrequent PVC is noted.) Neck: Full Range of Motion, Normal Inspection Respiratory: No Accessory Muscle Use, No Respiratory Distress, Wheezing (Faint expiratory wheeze) Cardiovascular: Regular Rate, Rhythm, Normal Peripheral Pulses Gastrointestinal: Normal Bowel Sounds, Non Tender, Soft Extremity: Normal Capillary Refill, Normal Inspection Neurologic/Psychiatric: Alert Skin: Normal Color, Warm/Dry Progress/Results/Core Measures Results/Orders Lab Results Laboratory Tests Test 01/02/21 16:38 01/02/21 17:30 01/02/21 19:14 Range/Units White Blood Count 7.9 4.3-11.0 10^3/uL Red Blood Count 4.73 3.80-5.11 10^6/uL Hemoglobin 13.7 11.5-16.0 g/dL Hematocrit 42 35-52 % Mean Corpuscular Volume 89 80-99 fL Mean Corpuscular Hemoglobin 29 25-34 pg Mean Corpuscular Hemoglobin Concent 33 32-36 g/dL Red Cell Distribution Width 12.5 10.0-14.5 % Platelet Count 149 130-400 10^3/uL Mean Platelet Volume 10.6 9.0-12.2 fL Immature Granulocyte % (Auto) 0 % Neutrophils (%) (Auto) 47 42-75 % Lymphocytes (%) (Auto) 28 12-44 % Monocytes (%) (Auto) 5 0-12 % Eosinophils (%) (Auto) 19 H 0-10 % Basophils (%) (Auto) 0 0-10 % Neutrophils # (Auto) 3.7 1.8-7.8 10^3/uL Lymphocytes # (Auto) 2.2 1.0-4.0 10^3/uL Monocytes # (Auto) 0.4 0.0-1.0 10^3/uL Eosinophils # (Auto) 1.5 H 0.0-0.3 10^3/uL Basophils # (Auto) 0.0 0.0-0.1 10^3/uL Immature Granulocyte # (Auto) 0.0 0.0-0.1 10^3/uL Neutrophils % (Manual) 43 % Lymphocytes % (Manual) 31 % Monocytes % (Manual) 4 % Eosinophils % (Manual) 22 % Blood Morphology Comment NORMAL Prothrombin Time 13.0 12.2-14.7 SEC INR Comment 0.9 0.8-1.4 Activated Partial Thromboplast Time 27 24-35 SEC D-Dimer 0.69 H 0.00-0.49 UG/ML Sodium Level 139 135-145 MMOL/L Potassium Level 4.2 3.6-5.0 MMOL/L Chloride Level 102 98-107 MMOL/L Carbon Dioxide Level 22 21-32 MMOL/L Anion Gap 15 H 5-14 MMOL/L Blood Urea Nitrogen 17 7-18 MG/DL Creatinine 0.74 0.60-1.30 MG/DL Estimat Glomerular Filtration Rate 80 BUN/Creatinine Ratio 23 Glucose Level 125 H 70-105 MG/DL Calcium Level 9.0 8.5-10.1 MG/DL Corrected Calcium 8.9 8.5-10.1 MG/DL Magnesium Level 2.2 1.6-2.4 MG/DL Total Bilirubin 0.7 0.1-1.0 MG/DL Aspartate Amino Transf (AST/SGOT) 21 5-34 U/L Alanine Aminotransferase (ALT/SGPT) 10 0-55 U/L Alkaline Phosphatase 105 40-136 U/L Myoglobin 30.9 10.0-92.0 NG/ML Troponin I < 0.028 < 0.028 <0.028 NG/ML B-Type Natriuretic Peptide 46.2 <100.0 PG/ML Total Protein 7.0 6.4-8.2 GM/DL Albumin 4.1 3.2-4.5 GM/DL SARS-CoV-2 RNA (RT-PCR) Not Detected Not Detecte My Ana Perez - LIZY ESCALANTE YARD HOSTLER Cbc With Automated Diff (01/02/21 16:21) Magnesium (01/02/21 16:21) Chest 1 View, Ap/Pa Only (01/02/21 16:21) Ekg Tracing (01/02/21 16:21) Comprehensive Metabolic Panel (01/02/21 16:21) Myoglobin Serum (01/02/21 16:21) Protime With Inr (01/02/21 16:21) Partial Thromboplastin Time (01/02/21 16:21) O2 (01/02/21 16:21) Monitor-Rhythm Ecg Trace Only (01/02/21 16:21) Lipid Panel (01/03/21 06:00) Ed Iv/Invasive Line Start (01/02/21 16:21) BNP (01/02/21 16:21) Troponin I (01/02/21 16:21) Aspirin Chewable Tablet (Baby Aspirin Ch (01/02/21 16:30) Albuterol/Ipra Inhalation Soln (Duoneb I (01/02/21 16:30) Lorazepam Injection (Ativan Injection) (01/02/21 16:30) Antacid Suspension (Mylanta Suspension (01/02/21 16:30) Lidocaine 2% Viscous 15 Ml (Xylocaine Vi (01/02/21 16:30) Svn Small Volume Nebulizer (01/02/21 16:21) Fibrin Degradation Products (01/02/21 16:38) Manual Differential (01/02/21 16:38) Ondansetron Injection (Zofran Injectio (01/02/21 17:15) Ct Angio Chest W (01/02/21 17:08) Diphenhydramine Injection (Benadryl Inje (01/02/21 17:30) Famotidine Injection (Pepcid Injection) (01/02/21 17:30) Iohexol Injection (Omnipaque 350 Mg/Ml 1 (01/02/21 17:30) Received Contrast (Hold Metformin- Contr (01/02/21 17:30) Ns (Ivpb) (Sodium Chloride 0.9% Ivpb Bag (01/02/21 17:30) Covid 19 Inhouse Test (01/02/21 17:36) Troponin I (01/02/21 18:31) Orphenadrine Inj (Ed Only) (Norflex Inje (01/02/21 18:45) Morphine Injection (Morphine Injection (01/02/21 19:55) Influenza A And B By Pcr (01/02/21 20:15) Medications Given in ED Current Medications Medications Dose Ordered Sig/Sandy Route Start Time Stop Time Status Last Admin Dose Admin Al Hydrox/Mg Hydrox/Simethicone 30 ml ONCE ONCE PO 01/02/21 16:30 01/02/21 16:31 DC 01/02/21 16:55 30 ML Albuterol/ Ipratropium 3 ml ONCE ONCE INH 01/02/21 16:30 01/02/21 16:31 DC 01/02/21 16:58 3 ML Aspirin 324 mg ONCE ONCE PO 01/02/21 16:30 01/02/21 16:31 DC 01/02/21 16:54 324 MG Diphenhydramine HCl 25 mg ONCE ONCE IVP 01/02/21 17:30 01/02/21 17:31 DC 01/02/21 17:27 25 MG Famotidine 20 mg ONCE ONCE IVP 01/02/21 17:30 01/02/21 17:31 DC 01/02/21 17:25 20 MG Iohexol 100 ml ONCE ONCE IV 01/02/21 17:30 01/02/21 17:31 DC 01/02/21 19:06 86 ML Lidocaine HCl 15 ml ONCE ONCE PO 01/02/21 16:30 01/02/21 16:31 DC 01/02/21 16:55 15 ML Lorazepam 0.5 mg ONCE PRN IVP 01/02/21 16:30 01/02/21 16:52 0.5 MG Ondansetron HCl 8 mg ONCE ONCE IVP 01/02/21 17:15 01/02/21 17:16 DC 01/02/21 17:06 8 MG Orphenadrine Citrate 60 mg ONCE ONCE IV 01/02/21 18:45 01/02/21 18:46 DC 01/02/21 18:55 60 MG Sodium Chloride 100 ml ONCE ONCE IV 01/02/21 17:30 01/02/21 17:31 DC 01/02/21 19:06 70 ML Vital Signs/I&O 01/02/21 01/02/21 16:13 16:58 Pulse 98 Resp 18 B/P (MAP) 124/99 (107) Pulse Ox 98 97 O2 Delivery Room Air Room Air Departure Communication (Admissions) Family Conversation 1721-now has diffuse erythema with itchiness. We will give her some Benadryl and Pepcid. 1913-her rash has cleared. She now complains of neck pain, being very cold and restless legs. 1957-repeat troponin still negative. Daughter calls us to the room because patient is now shaking uncontrollably and complains of ongoing pain in the back of her neck 2018-after the morphine she is feeling a little bit better but she states that she gets flushed and then gets a rash and then starts shaking and then her chest pain recurs. She tells me she has been taking Benadryl at home for this chest pain. Right now she feels okay but she states when she starts shaking she has recurrent back and chest pain. Her troponin is negative x2 her CT angio was normal. I spoke with Dr. Alicea. Will admit observation on telemetry with a repeat troponin in the morning and telemetry overnight. Patient does report a lot of stress at home. NAME: [facility] REC#: [id number] PT STATUS: REG ER : 1960 PHYSICIAN: LIZY ESCALANTE APRN ADMIT DATE: 01/02/21/ER Signed Date of Exam:01/02/21 CHEST 1 VIEW, AP/PA ONLY EXAMINATION: Chest 1 view HISTORY: Chest pain COMPARISON: 12/04/2019 FINDINGS: The lungs are clear without edema or pneumonia. No pleural effusion or pneumothorax. Heart size is normal. IMPRESSION: 1. Clear lungs. Dictated by: Dictated on workstation # [id number] Dict: 01/02/211651 Trans: 01/02/211658 CV [id number] Interpreted by: YUKI MARTINEZ MD Electronically signed by: YUKI MARTINEZ MD 01/02/21 1659 Impression Primary Impression: Acid reflux Additional Impressions: Stress at home Chest pain Disposition: ADMITTED INPATIENT Condition: Stable Admissions Decision to Admit Reason: Admit from ER (General) Decision to Admit/Date: Jan 02, 2021 Time/Decision to Admit Time: 19:15 Departure-Patient Inst. Referrals: SUZE ALICEA MD (PCP/Family) Primary Care Physician LIZY ESCALANTE APRN Jan 02, 2021 16:25
[2021-01-02] MEDS ORDERED: RT-ALBUTEROL/IPRATROPIUM 3 ML (DUONEB) VIAL INH ONE (16:30)
[2021-01-02] MEDS ORDERED: LIDOCAINE 2% VISCOUS 15 ML UDC PO ONE (16:30)
[2021-01-02] MEDS ORDERED: ASPIRIN 81 MG CHEW (CHILDREN'S ASA) PO ONE (16:30)
[2021-01-02] MEDS ORDERED: LORazepam INJ 2 MG/ML (ATIVAN) VIAL IVP PRN (16:30)
[2021-01-02] MEDS ORDERED: ANTACID SUSP 30 ML UDC (MYLANTA) PO ONE (16:30)
[2021-01-02 16:47] LABS: BASOPHILS % (AUTO) 0 % (0-10); EOSINOPHILS # (AUTO) 1.5 10^3/uL (0.0-0.3); EOSINOPHILS % (AUTO) 19 % (0-10); HEMATOCRIT 42 % (35-52); HEMOGLOBIN 13.7 g/dL (11.5-16.0); LYMPHOCYTES # (AUTO) 2.2 10^3/uL (1.0-4.0); LYMPHOCYTES % (AUTO) 28 % (12-44); MEAN CORPUSCULAR HEMOGLOBIN 29 pg (25-34); MEAN CORPUSCULAR HGB CONC 33 g/dL (32-36); MEAN CORPUSCULAR VOLUME 89 fL (80-99); MEAN PLATELET VOLUME 10.6 fL (9.0-12.2); MONOCYTES # (AUTO) 0.4 10^3/uL (0.0-1.0); MONOCYTES % (AUTO) 5 % (0-12); NEUTROPHILS # (AUTO) 3.7 10^3/uL (1.8-7.8); NEUTROPHILS % (AUTO) 47 % (42-75); PLATELET COUNT 149 10^3/uL (130-400); WHITE BLOOD COUNT 7.9 10^3/uL (4.3-11.0)
--- NOTE | 2021-01-02 16:55 | Diagnostic Imaging Report ---
EXAMINATION: Chest 1 view HISTORY: Chest pain COMPARISON: 12/04/2019 FINDINGS: The lungs are clear without edema or pneumonia. No pleural effusion or pneumothorax. Heart size is normal. IMPRESSION: 1. Clear lungs. Dictated by: Dictated on workstation # [id number]
[2021-01-02 16:57] LABS: ALBUMIN 4.1 GM/DL (3.2-4.5); POTASSIUM 4.2 MMOL/L (3.6-5.0)
[2021-01-02 17:01] LABS: BILIRUBIN,TOTAL 0.7 MG/DL (0.1-1.0); FIBRIN DEGRADATION PRODUCTS 0.69 UG/ML (0.00-0.49); INR 0.9 (0.8-1.4)
[2021-01-02 17:03] LABS: CREATININE SERUM 0.74 MG/DL (0.60-1.30)
[2021-01-02 17:05] LABS: MAGNESIUM 2.2 MG/DL (1.6-2.4)
[2021-01-02] MEDS ORDERED: ONDANSETRON 4 MG/2 ML (SDV) Z0FRAN IVP ONE (17:15)
[2021-01-02 17:22] LABS: EOSINOPHILS % (MANUAL) 22 %; LYMPHOCYTES % (MANUAL) 31 %; MONOCYTES % (MANUAL) 4 %; NEUTROPHILS % (MANUAL) 43 %; RBC MORPH NORMAL
[2021-01-02] MEDS ORDERED: HOLD METFORMIN - RECEIVED CONTRAST 20 ML VIAL IV SCH (17:30)
[2021-01-02] MEDS ORDERED: diphenhydrAMINE 50 MG/ML INJ (BENADRYL) IVP ONE (17:30)
[2021-01-02] MEDS ORDERED: FAMOTIDINE 20MG/2ML IV (PEPCID) IVP ONE (17:30)
[2021-01-02] MEDS ORDERED: IOHEXOL 350 MG/ML 100 ML (OMNIPAQUE 350) VIAL IV ONE (17:30)
[2021-01-02] MEDS ORDERED: NS 100 ML (IVPB) BAG IV ONE (17:30)
[2021-01-02] MEDS ORDERED: ORPHENADRINE 60 MG/2 ML (NORFLEX) AMP (ED ONLY) IV ONE (18:45)
--- NOTE | 2021-01-02 19:19 | Diagnostic Imaging Report ---
PROCEDURE: CT angiography of the chest with contrast. TECHNIQUE: Multiple contiguous axial images were obtained through the chest after uneventful bolus administration of intravenous contrast. 3D reconstructed CTA MIP acquisitions were also performed. Auto Exposure Controls were utilized during the CT exam to meet ALARA standards for radiation dose reduction. INDICATION: Chest pain. Shortness of air. COMPARISON: Chest radiograph also performed today. FINDINGS: No pulmonary artery filling defects. Normal caliber thoracic aorta. Normal heart size. No pericardial effusion. No lymphadenopathy. The lungs are clear. No pleural effusion or pneumothorax. No acute osseous findings. Cholecystectomy. Postoperative changes in the stomach. IMPRESSION: 1. No pulmonary emboli. 2. No acute CT findings in the chest. Dictated by: Dictated on workstation # [id number]
[2021-01-02] MEDS ORDERED: morphine INJ 10 MG/ML 1ML (SYR OR VIAL) IVP STA (19:55)
[2021-01-02] MEDS ORDERED: diphenhydrAMINE 50 MG/ML INJ (BENADRYL) IVP PRN (21:30)
[2021-01-02] MEDS: PANTOPRAZOLE 40 MG (PROTONIX) VIAL IV SCH (22:45)
[2021-01-02] MEDS: CATHETER FLUSH 10 ML SYR IV SCH (22:45)
[2021-01-02] MEDS: morphine INJ 4 MG/ML 1 ML (VIAL/SYRINGE) IV PRN (22:45)
[2021-01-02] MEDS ORDERED: ACETAMINOPHEN 500 MG TAB (TYLENOL) PO ONE (23:45)
[2021-01-02 23:58] VITALS: BP 101/72
[2021-01-03] MEDS ORDERED: ACETAMINOPHEN 500 MG TAB (TYLENOL) ONE (00:11)
[2021-01-03] MEDS: ACETAMINOPHEN 500 MG TAB (TYLENOL) PO PRN ×2 (03:38→11:07)
[2021-01-03 04:19] VITALS: BP 103/68
[2021-01-03] MEDS: CATHETER FLUSH 10 ML SYR IV SCH ×3 (05:01→20:51)
[2021-01-03 06:31] LABS: HEMOGLOBIN 13.2 g/dL (11.5-16.0)
[2021-01-03 06:33] LABS: BASOPHILS % (AUTO) 0 % (0-10); EOSINOPHILS # (AUTO) 5.4 10^3/uL (0.0-0.3); EOSINOPHILS % (AUTO) 46 % (0-10); HEMATOCRIT 40 % (35-52); LYMPHOCYTES # (AUTO) 1.2 10^3/uL (1.0-4.0); LYMPHOCYTES % (AUTO) 10 % (12-44); MEAN CORPUSCULAR HEMOGLOBIN 30 pg (25-34); MEAN CORPUSCULAR HGB CONC 33 g/dL (32-36); MEAN CORPUSCULAR VOLUME 90 fL (80-99); MEAN PLATELET VOLUME 11.4 fL (9.0-12.2); MONOCYTES # (AUTO) 0.5 10^3/uL (0.0-1.0); MONOCYTES % (AUTO) 4 % (0-12); NEUTROPHILS # (AUTO) 4.8 10^3/uL (1.8-7.8); NEUTROPHILS % (AUTO) 40 % (42-75); PLATELET COUNT 127 10^3/uL (130-400); WHITE BLOOD COUNT 11.9 10^3/uL (4.3-11.0)
[2021-01-03 06:36] LABS: CHLORIDE 104 MMOL/L (98-107); POTASSIUM 4.1 MMOL/L (3.6-5.0); SODIUM 138 MMOL/L (135-145)
[2021-01-03 06:37] LABS: CALCIUM 8.4 MG/DL (8.5-10.1); GLUCOSE 113 MG/DL (70-105); TRIGLYCERIDES 65 MG/DL (<150); VLDL CHOLESTEROL 13 MG/DL (5-40)
[2021-01-03 06:39] LABS: CARBON DIOXIDE 22 MMOL/L (21-32)
[2021-01-03 06:41] LABS: CREATININE SERUM 0.72 MG/DL (0.60-1.30); GFR ESTIMATED 83
[2021-01-03 06:42] LABS: BUN/CREATININE RATIO 19; CHOLESTEROL 139 MG/DL (< 200)
[2021-01-03 06:43] LABS: HDL CHOLESTEROL 55 MG/DL (40-60)
[2021-01-03 08:20] VITALS: BP 104/72
[2021-01-03] MEDS: ASPIRIN E.C. 81 MG (ECOTRIN) TAB PO SCH (09:10)
[2021-01-03] MEDS: morphine INJ 4 MG/ML 1 ML (VIAL/SYRINGE) IV PRN ×2 (09:10→23:37)
[2021-01-03] MEDS: PANTOPRAZOLE 40 MG (PROTONIX) VIAL IV SCH ×2 (09:11→20:51)
[2021-01-03] MEDS ORDERED: BACL20TA PO (10:28)
[2021-01-03] MEDS ORDERED: ROPI3TAB4 PO (10:28)
[2021-01-03 11:28] VITALS: BP 102/67
[2021-01-03] MEDS ORDERED: BACLOFEN 10 MG (LIORESAL) TAB PO PRN (11:45)
[2021-01-03] MEDS: ONDANSETRON 4 MG/2 ML (SDV) Z0FRAN IVP PRN ×2 (11:53→18:38)
--- NOTE | 2021-01-03 14:23 | CONSULTATION REPORT ---
DATE OF SERVICE: 01/03/2021 ATTENDING PRIMARY CARE PHYSICIAN: Teresita Alicea MD HISTORY OF PRESENT ILLNESS: The patient is a 60-year-old female known to us. She has a longstanding history of degenerative joint disease and did recently undergo a right shoulder arthroscopy. 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 She was then seen in the Emergency Department where cardiac enzymes were drawn as well as EKG, which did not show any elevation of cardiac enzymes and her EKG was normal. She does report that she does have some issues with gastroesophageal reflux disease. She states that she takes Prilosec [id number] on a p.r.n. basis. She is also status post laparoscopic gastric sleeve resection in 2014. She states that she does take caffeinated beverages with coffee every morning and a few sodas two to three times a week. PAST MEDICAL HISTORY: Degenerative joint disease, restless leg syndrome, gastroesophageal reflux disease. PAST SURGICAL HISTORY: Bilateral total hip arthroplasty 02/2002, bilateral total knee arthroplasty, laparoscopic cholecystectomy in 2010, laparoscopic gastric sleeve resection in 2014. Bilateral shoulder arthroscopy 2013 and 2020. ALLERGIES: PENICILLIN. MEDICATIONS: Hydrocodone 10/325 q.6 hours p.r.n., Zofran 4 mg q.6 hours p.r.n., trazodone 50 mg at bedtime, Requip daily, Lasix 40 mg daily, potassium daily. SOCIAL HISTORY: Negative smoke, negative alcohol. FAMILY HISTORY: Mother, type 2 diabetes. VITAL SIGNS: Temperature 36.0, blood pressure 102/67, pulse 86, respirations 18, pulse ox 96% on room air. REVIEW OF SYSTEMS: A well-nourished female, currently in no acute distress. She is not experiencing any shortness of breath or difficulty breathing. No chest pain, palpitations, diaphoresis. Intermittent episodes of gastroesophageal reflux disease. No nausea, vomiting. No hematemesis, no coffee ground emesis. She reports no major issues with diarrhea, no constipation, no red blood per rectum, no dark tarry stools. She did have fevers last night, none since then. No recent inadvertent weight loss. PHYSICAL EXAMINATION: CHEST: Clear. Good breath sounds bilaterally. HEART: Regular, no murmurs. EXTREMITIES: No lower extremity edema, negative Homans sign. HEENT: No scleral icterus. NECK: No cervical lymphadenopathy. ABDOMEN: Soft, nondistended. There is mild discomfort in the epigastric region upon deep palpation. No peritoneal signs. No hernias. LABORATORY DATA: WBC 11.9, hemoglobin 13.2, hematocrit 40, platelets 127. BUN 14, creatinine 0.72. ASSESSMENT AND PLAN: A 60-year-old female with noncardiac chest pain, likely secondary to worsening gastroesophageal reflux disease and reflux esophagitis. 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 Job ID: [id number] DocumentID: [id number] Dictated Date: 01/03/2021 13:59:34 Director University Date: 01/03/2021 14:23:16 Dictated By: BALBIR BONILLA MD [facility]
[2021-01-03 16:00] VITALS: BP 108/74
--- NOTE | 2021-01-03 16:55 | Progress Note-Pre Operative ---
Pre-Operative Progress Note H&P Reviewed The H&P was reviewed, patient examined and no changes noted. Date Seen by Provider: Jan 03, 2021 Time Seen by Provider: 15:00 Date H&P Reviewed: Jan 03, 2021 Time H&P Reviewed: 15:00 Pre-Operative Diagnosis: chest pain, GERD BALBIR BONILLA MD Jan 03, 2021 16:55
--- NOTE | 2021-01-03 17:01 | History & Physical ---
CYNDI BONE 01/03/21 1701: History of Present Illness History of Present Illness Reason for visit/HPI Pt is a 60yo female with PMH of GERD, HTN, Degenerative joint disease and s/p Gastric sleeve procedure. She presented to the ER yesterday after experiencing chest pain/tightness, nausea and an episode of vomiting while at work. She had been having some chest pain the last few days that seemed to be reflux related, but prilosec was not helpful after she took it. At the ER, she had normal cardiac enzyme levels and a normal EKG. She also developed a rash and some itching over her upper extremity while at the ER. She has not been sleeping well lately and has been fatigued. Denies any blood in her vomit or stool. She does mention some pain in her posterior neck/occipital area. As of this morning, her rash/itching of the UE are improved. Date of Admission Jan 02, 2021 at 20:18 Date Seen by a Provider: Jan 03, 2021 Time Seen by a Provider: 08:30 I consulted on this patient on 01/03/21 16:51 Attending Physician Suze Alicea MD Admitting Physician Suze Alicea MD Consult Allergies and Home Medications Allergies Coded Allergies: Penicillins (Verified Allergy, Unknown, 11/09/20) Patient Home Medication List Baclofen (Baclofen) 20 Mg Tablet, 20 MG PO HS, (Reported) Entered as Reported by: SHU KATZ on 01/03/21 1028 Last Action: Converted Furosemide (Furosemide) 40 Mg Tablet, 80 MG PO DAILY, (Reported) Entered as Reported by: DYLAN YOUSSEF on 04/23/17 3176 Last Action: Reviewed Hydrocodone/Acetaminophen (Hydrocodone-Acetamin 10-325 mg) 1 Each Tablet, 1-2 EACH PO Q6H PRN for PAIN-MODERATE (5-7), (Reported) Entered as Reported by: MAE CAMPOS on 12/29/20 1358 Last Action: Continued Potassium Chloride (Potassium Chloride) 20 Meq Tab.er.prt, 40 MEQ PO DAILY, (Reported) Entered as Reported by: DYLAN YOUSSEF on 04/23/17 0926 Last Action: Reviewed Ropinirole HCl (Ropinirole HCl) 3 Mg Tablet, 3 MG PO HS, (Reported) Entered as Reported by: SHU KATZ on 01/03/21 1028 Last Action: Converted Trazodone HCl (Trazodone HCl) 50 Mg Tablet, 50 MG PO HS, (Reported) Entered as Reported by: PREETI DIMAS on 12/04/19 1653 Last Action: Reviewed Discontinued Medications Baclofen (Baclofen) 20 Mg Tablet, 20 MG PO Q8H PRN for MUSCLE SPASMS, (Reported) Discontinued Reason: No Longer Taking Entered as Reported by: DYLAN YOUSSEF on 04/23/17 1516 Ondansetron HCl (Ondansetron HCl) 4 Mg Tablet, 4 MG PO Q4H PRN for NAUSEA/VOMITING-1ST LINE, (Reported) Discontinued Reason: No Longer Taking Entered as Reported by: DYLAN YOUSSEF on 04/23/17 1516 Last Action: Discontinued Ropinirole HCl (Ropinirole HCl) 4 Mg Tablet, 4 MG PO HS, (Reported) Discontinued Reason: Duplicate Order Entered as Reported by: RAMILA CROOKS on 05/14/19 1433 Last Action: Discontinued Past Qyyauew-Ivnkrv-Yhxhkt Hx Patient Social History Tobacco Use?: No Smoking Status: Former Smoker Smokeless Tobacco Frequency: Never a User Use of E-Cig and/or Vaping dev: No Substance use?: No Alcohol Use?: No Pt feels they are or have been: No Immunizations Up To Date Date of Influenza Vaccine: Dec 30, 2020 First/Initial COVID19 Vaccinat: JULY 2020 Second COVID19 Vaccination Ren: AUGUST 2020 Tetanus Booster (TDap): Unknown Hepatitis A: No Hepatitis B: No PED Vaccines UTD: Yes Seasonal Allergies Seasonal Allergies: Yes Current Status status: No status: No Advance Directives: No Communicates: Verbally Primary Language: Bermudian Preferred Spoken Language: Bermudian Is interpretation needed?: No Sensory deficits: Vision impairment Implanted or Applied Medical D: None Past Medical History Surgeries: Gallbladder, Orthopedic Currently Using CPAP: No Currently Using BIPAP: No Chronic Edema/Swelling Headaches /Migraines Sexually Transmitted Disease: No Arthritis, Fractures Hearing Impairment: Denies Blood Disorders: No Family Medical History Arthritis 19 MOTHER Cataracts 19 MOTHER G8 BROTHER Diabetes mellitus 19 MOTHER Review of Systems Constitutional: No chills, No diaphoresis Respiratory: cough Cardiovascular: chest pain (described as tightness); No syncope Gastrointestinal: abdominal pain; No hematemesis; heartburn, nausea, vomiting Musculoskeletal: neck pain Physical Exam Vital Signs Vital Signs - First Documented 01/02/21 01/02/21 16:13 20:37 Temp 36.7 Pulse 98 Resp 18 B/P (MAP) 124/99 (107) Pulse Ox 98 O2 Delivery Room Air Capillary Refill : Less Than 3 Seconds Height, Weight, BMI Height: 5'4.00" Weight: 270lbs. 0.0oz. 122.753961vy; 48.66 BMI Method:Stated General Appearance: No Apparent Distress, Obese HEENT: PERRL/EOMI, Moist Mucous Membranes Neck: Supple, Other (erythema (mild) of neck and face) Respiratory: Lungs Clear, Normal Breath Sounds, No Accessory Muscle Use, No Respiratory Distress Cardiovascular: Regular Rate, Rhythm, No Edema, Normal Peripheral Pulses Gastrointestinal: Normal Bowel Sounds, Non Tender, Soft Extremity: Normal Capillary Refill, Other (mild erythema/warmth of B/L upper extremities) Neurologic/Psychiatric: Alert, Oriented x3, Normal Mood/Affect Skin: Warm/Dry, Erythema (Face, upper chest, BL upper extremities) Assessment/Plan Assessment and Plan Chest pain likely secondary to GERD/Reflux esophagitis -CXR and CT chest both normal -Dr. Red consulted, EGD planned for tomorrow -Continue PPI, await results of EGD Eosinophilia Lymphocytosis - No signs of active infection - Recheck labs tomorrow AM, further workup if continue to trend upwards Admission Diagnosis Admission Status: Inpatient Order (span 2 midnights) Clinical Quality Measures AMI/AHF: ASA po Prior to arrival: No SUZE ALICEA MD 01/03/219: History of Present Illness History of Present Illness Reason for visit/HPI ANA CRISTINA IS A NEW PATIENT TO MY PRACTICE. SHE PRESENTED TO THE HOSPITAL WITH SHAKING CHILLS, WEAKNESS, FLUSHING OF HER SKIN AND ABDOMINAL DISCOMFORT. SHE REPORTS A RASH TO HER CHEST, UPPER BODY. SHE DENIES anY KNOWN ALLERGENIC EXPOSURES. 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 Date of Admission 01/02/2021 Date Seen by a Provider: Jan 03, 2021 Time Seen by a Provider: 08:10 Attending Physician SUZE ALICEA MD Admitting Physician SUZE ALICEA MD Allergies and Home Medications Allergies Coded Allergies: Penicillins (Verified Allergy, Unknown, 11/09/20) Patient Home Medication List Home Medication List Reviewed: Yes Baclofen (Baclofen) 20 Mg Tablet, 20 MG PO HS, (Reported) Entered as Reported by: SHU KATZ on 01/03/21 1028 Last Action: Converted Furosemide (Furosemide) 40 Mg Tablet, 80 MG PO DAILY, (Reported) Entered as Reported by: DYLAN YOUSSEF on 04/23/17 1516 Last Action: Reviewed Hydrocodone/Acetaminophen (Hydrocodone-Acetamin 10-325 mg) 1 Each Tablet, 1-2 EACH PO Q6H PRN for PAIN-MODERATE (5-7), (Reported) Entered as Reported by: MAE CAMPOS on 12/29/20 1358 Last Action: Continued Potassium Chloride (Potassium Chloride) 20 Meq Tab.er.prt, 40 MEQ PO DAILY, (Reported) Entered as Reported by: DYLAN YOUSSEF on 04/23/17 151 Last Action: Reviewed Ropinirole HCl (Ropinirole HCl) 3 Mg Tablet, 3 MG PO HS, (Reported) Entered as Reported by: SHU KATZ on 01/03/21 1028 Last Action: Converted Trazodone HCl (Trazodone HCl) 50 Mg Tablet, 50 MG PO HS, (Reported) Entered as Reported by: PREETI DIMAS on 12/04/19 1653 Last Action: Reviewed Discontinued Medications Baclofen (Baclofen) 20 Mg Tablet, 20 MG PO Q8H PRN for MUSCLE SPASMS, (Reported) Discontinued Reason: No Longer Taking Entered as Reported by: DYLAN YOUSSEF on 04/23/17 1516 Ondansetron HCl (Ondansetron HCl) 4 Mg Tablet, 4 MG PO Q4H PRN for NAUSEA/VOMITING-1ST LINE, (Reported) Discontinued Reason: No Longer Taking Entered as Reported by: DYLAN YOUSSEF on 04/23/17 151 Last Action: Discontinued Ropinirole HCl (Ropinirole HCl) 4 Mg Tablet, 4 MG PO HS, (Reported) Discontinued Reason: Duplicate Order Entered as Reported by: RAMILA CROOKS on 05/14/19 1433 Last Action: Discontinued Past Ntwlrad-Xspsrc-Rtdybz Hx Patient Social History Marrital Status: Number of Children: 3 Number of living children: 3 Living Status: LIVES WITH HER MOTHER HER ADMISSIONS ASSISTANT Employed/Student: employed Tobacco Use?: No Smoking Status: Never a Smoker Seasonal Allergies Seasonal Allergies: No Current Status Advance Directives: No Primary Language: B[place]udian Preferred Spoken Language: B[place]udian Is interpretation needed?: No Past Medical History Surgeries: Abdominal (GASTRIC BYPASS) Currently Using CPAP: No Currently Using BIPAP: No Arthritis Anxiety, Depression RESTLESS LEG SYNDROME, INsomnia Family Medical History Reviewed and Corrections made Arthritis 19 MOTHER Cataracts 19 MOTHER G8 BROTHER Diabetes mellitus 19 MOTHER Heart Disease, Diabetes, Hypertension Review of Systems Constitutional: chills, fever, malaise, weakness Respiratory: cough Cardiovascular: chest pain (described as tightness) Gastrointestinal: abdominal pain, heartburn, nausea, vomiting Genitourinary: No discharge, No dysuria; incontinence Musculoskeletal: back pain, muscle weakness, neck pain Skin: pruritus Psychiatric/Neurological: Anxiety, Depressed, Weakness All Other Systems Reviewed Negative Unless Noted: Yes Physical Exam General Appearance: No Apparent Distress, WD/WN, Obese Eyes: Bilateral Eye Normal Inspection HEENT: PERRL/EOMI, Normal ENT Inspection, Pharynx Normal, Moist Mucous Membranes Neck: Full Range of Motion, Supple Respiratory: Chest Non Tender, Lungs Clear, Normal Breath Sounds, No Accessory Muscle Use, No Respiratory Distress Cardiovascular: Regular Rate, Rhythm, No Edema, Normal Peripheral Pulses Gastrointestinal: Normal Bowel Sounds, Non Tender, Soft Rectal: Deferred Extremity: Normal Capillary Refill, No Calf Tenderness, No Pedal Edema Neurologic/Psychiatric: Alert, Oriented x3, No Motor/Sensory Deficits, Normal Mood/Affect Skin: Normal Color, Warm/Dry Lymphatic: No Adenopathy Assessment/Plan Assessment and Plan CHEST PAIN ESOPHAGEAL REFLUX LYMPHOCYTOSIS WITH ELEVATED EOSINOPHILS INSOMNIA FLUSHING CHEST PAIN - SUSPECT DUE TO ESOPHAGEAL REFLUX - DISCUSSED CASE WITH DR. RED - HE WILL GET PT IN FOR EGD WHILE PT IN [facility] - MONITOR SYMPTOMS - START ON PPI THERAPY LYMPHOCYTOSIS WITH ELEVATED EOSINOPHILS - REPEAT LABS IN MORNING INSOMNIA - RESUME HOME REGIMEN MUSCLE SPASMS - RESUME BACLOFEN FLUSHING - MONITOR TEMP/LABS. Admission Diagnosis CHEST PAIN ESOPHAGEAL REFLUX LYMPHOCYTOSIS WITH ELEVATED EOSINOPHILS INSOMNIA FLUSHING Admission Status: Observation Supervisory-Addendum Brief Verification & Attestation Participated in pt care: history, MDM, physical Personally performed: exam, history, MDM, supervision of care Care discussed with: Medical Student Procedures: n/a Results interpretation: Verified all documentation AGREE WITH STUDENT NOTE - SEE MY DOCUMENTATION FOR FULL DETAILS. CYNDI BONE Jan 03, 2021 17:01 SUZE ALICEA MD Jan 03, 2021 22:15
[2021-01-03 19:38] VITALS: BP 106/74
[2021-01-03] MEDS: rOPINIRole 1 MG (REQUIP) TABLET PO SCH (20:50)
[2021-01-03] MEDS: BACLOFEN 10 MG (LIORESAL) TAB PO SCH (20:50)
[2021-01-03] MEDS: traZODone 50 MG (DESYREL) TAB PO SCH (20:51)
[2021-01-03] MEDS ORDERED: NON-FORMULARY MEDICATION 1 EA EA (Ropinirole HCl 3 MG) PO SCH (21:00)
[2021-01-03] MEDS ORDERED: NON-FORMULARY MEDICATION 1 EA EA (Baclofen 20 MG) PO SCH (21:00)
[2021-01-03] MEDS ORDERED: PANTOPRAZOLE 40 MG (PROTONIX) VIAL IV ONE (22:30)
[2021-01-04] VITALS (10 sets, daily range): BP systolic 107–140; BP diastolic 56–75
[2021-01-04 00:15] LABS: BILIRUBIN,URINE NEGATIVE (NEGATIVE); CLARITY,URINE CLEAR; COLOR,URINE YELLOW; GLUCOSE, URINE (UA) NEGATIVE (NEGATIVE); KETONES,URINE NEGATIVE (NEGATIVE); LEUKOCYTE ESTERASE ,URINE 2+ (NEGATIVE); NITRITE,URINE NEGATIVE (NEGATIVE); PROTEIN,URINE NEGATIVE (NEGATIVE)
[2021-01-04 00:27] LABS: BACTERIA,URINE MODERATE /HPF; WBC,URINE 25-50 /HPF
[2021-01-04] MEDS: CATHETER FLUSH 10 ML SYR IV SCH ×3 (05:41→20:33)
[2021-01-04 08:14] LABS: HEMATOCRIT 41 % (35-52); HEMOGLOBIN 13.4 g/dL (11.5-16.0); MEAN CORPUSCULAR HEMOGLOBIN 30 pg (25-34); MEAN CORPUSCULAR HGB CONC 33 g/dL (32-36); MEAN CORPUSCULAR VOLUME 91 fL (80-99); WHITE BLOOD COUNT 12.5 10^3/uL (4.3-11.0)
[2021-01-04 08:19] LABS: PLATELET COUNT 54 10^3/uL (130-400)
--- NOTE | 2021-01-04 08:21 | Progress Note ---
Subjective Subjective Date Seen by Provider: Jan 04, 2021 Time Seen by Provider: 08:21 All Other Systems Reviewed All Other Systems Reviewed: Yes Objective Exam Vital Signs Vital Signs Date Time Temp Pulse Resp B/P (MAP) Pulse Ox O2 Delivery O2 Flow Rate FiO2 01/04/21 07:51 93 Nasal Cannula 2.00 01/04/21 04:10 36.4 80 16 108/75 (86) 99 Nasal Cannula 2.00 01/04/21 01:01 80 01/04/21 00:10 36.4 91 16 110/68 (82) 96 Room Air 01/03/21 20:50 Room Air 01/03/21 19:38 37.0 85 18 106/74 (85) 98 Room Air 01/03/21 19:00 96 01/03/21 16:00 36.9 88 18 108/74 (85) 98 Room Air 01/03/21 13:00 98 01/03/21 11:28 36.0 86 18 102/67 (79) 96 Room Air I & O 01/04/21 07:00 Intake Total 1900 ml Output Total 2450 ml Balance -550 ml General Appearance: No Apparent Distress, WD/WN, Obese Eyes: Bilateral Eye Normal Inspection HEENT: PERRL/EOMI, Normal ENT Inspection, Pharynx Normal, Moist Mucous Membranes Neck: Full Range of Motion, Supple Respiratory: Chest Non Tender, Lungs Clear, Normal Breath Sounds, No Accessory Muscle Use, No Respiratory Distress Cardiovascular: Regular Rate, Rhythm, No Edema, Normal Peripheral Pulses Gastrointestinal: Normal Bowel Sounds, Non Tender, Soft Rectal: Deferred Extremity: Normal Capillary Refill, No Calf Tenderness, No Pedal Edema Neurologic/Psychiatric: Alert, Oriented x3, No Motor/Sensory Deficits, Normal Mood/Affect Skin: Normal Color, Warm/Dry Lymphatic: No Adenopathy Results Lab Laboratory Tests 01/04/21 00:00: Urine Color YELLOW, Urine Clarity CLEAR, Urine pH 6.0, Urine Specific [place] >=1.030, Urine Protein NEGATIVE, Urine Glucose (UA) NEGATIVE, Urine Ketones NEGATIVE, Urine Nitrite NEGATIVE, Urine Bilirubin NEGATIVE, Urine Urobilinogen 1.0, Urine Leukocyte Esterase 2+H, Urine RBC (Auto) NEGATIVE, Urine RBC NONE, Urine WBC 25-50H, Urine Squamous Epithelial Cells 5-10, Urine Crystals NONE, Urine Bacteria MODERATEH, Urine Casts NONE, Urine Mucus NEGATIVE, Urine Culture Indicated YES 01/04/21 05:55: White Blood Count 12.5H, Red Blood Count 4.48, Hemoglobin 13.4, Hematocrit 41, Mean Corpuscular Volume 91, Mean Corpuscular Hemoglobin 30, Mean Corpuscular Hemoglobin Concent 33, Red Cell Distribution Width 12.9, Platelet Count 54L, Mean Platelet Volume 13.0H Microbiology 01/02/21 Blood Culture - Preliminary, Resulted No growth Assessment/Plan Assessment/Plan Admission Dx CHEST PAIN ESOPHAGEAL REFLUX LYMPHOCYTOSIS WITH ELEVATED EOSINOPHILS INSOMNIA FLUSHING Admission Dx CHEST PAIN ESOPHAGEAL REFLUX LYMPHOCYTOSIS WITH ELEVATED EOSINOPHILS INSOMNIA FLUSHING Clinical Quality Measures Admission Status Admission Dx CHEST PAIN ESOPHAGEAL REFLUX LYMPHOCYTOSIS WITH ELEVATED EOSINOPHILS INSOMNIA FLUSHING AMI/AHF: ASA po Prior to arrival: SUZE Dumont MD Jan 04, 2021 08:21
[2021-01-04] MEDS ORDERED: cefTRIAXone 1,000 MG in WATER (STERILE) FOR INJECTION 10 ML IV ONE (08:30)
[2021-01-04 08:33] LABS: ALBUMIN 3.7 GM/DL (3.2-4.5); BILIRUBIN,TOTAL 0.7 MG/DL (0.1-1.0); CALCIUM 8.7 MG/DL (8.5-10.1); CREATININE SERUM 0.68 MG/DL (0.60-1.30); TOTAL PROTEIN 6.3 GM/DL (6.4-8.2)
[2021-01-04 09:02] LABS: BAND NEUTROPHILS 0 %; LYMPHOCYTES % (MANUAL) 13 %; MONOCYTES % (MANUAL) 2 %; NEUTROPHILS % (MANUAL) 19 %
[2021-01-04 09:03] LABS: BASOPHILS % (MANUAL) 0 %; EOSINOPHILS % (MANUAL) 66 %; RBC MORPH NORMAL
[2021-01-04] MEDS ORDERED: LACTATED RINGERS 1,000 ML IV ONE ×3 (09:39→10:30)
[2021-01-04] MEDS ORDERED: HURRICAINE EXT TUBE (BENZOCAINE) XX PRN (09:45)
[2021-01-04] MEDS ORDERED: LIDOCAINE JELLY 2% 6 ML SYRINGE MM PRN (09:45)
[2021-01-04] MEDS ORDERED: proPOfol 200 MG/20 ML (DIPRIVAN) VIAL IV ONE (09:49)
[2021-01-04] MEDS ORDERED: MIDAZOLAM 2 MG/2 ML (VERSED) VIAL ONE (09:49)
[2021-01-04] MEDS ORDERED: LIDOCAINE JELLY 2% 6 ML SYRINGE ONE (09:50)
--- NOTE | 2021-01-04 10:27 | Progress Note-Post Operative ---
Post-Operative Progess Note Surgeon (s)/Arborer (s) Surgeon BALBIR BONILLA MD Arborer: none Pre-Operative Diagnosis chest pain, GERD Post-Operative Diagnosis relux esophagitis(stage 2-3), small HH(1.5cm), bile alkaline reflux, moderate-severe gastritis. Procedure & Operative Findings Date of Procedure 01/04/21 Procedure Performed/Findings EGD with bx. Anesthesia Type mac Estimated Blood Loss Estimated blood loss (mL): minimal Specimens/Packing Specimens Removed ge jxn, antrum BALBIR BONILLA MD Jan 04, 2021 10:26
[2021-01-04] MEDS ORDERED: LIDOCAINE JELLY 2% 6 ML SYRINGE TOP ONE (10:30)
[2021-01-04] MEDS ORDERED: HURRICAINE EXT TUBE (BENZOCAINE) XX ONE (10:30)
[2021-01-04] MEDS: ASPIRIN E.C. 81 MG (ECOTRIN) TAB PO SCH (10:43)
[2021-01-04] MEDS: PANTOPRAZOLE 40 MG (PROTONIX) VIAL IV SCH ×2 (10:43→20:32)
[2021-01-04] MEDS ORDERED: cefTRIAXone 1,000 MG VIAL ONE (10:51)
[2021-01-04] MEDS ORDERED: WATER (STERILE) FOR INJECTION 10 ML ONE (10:52)
[2021-01-04] MEDS: ANTACID SUSP 30 ML UDC (MYLANTA) PO SCH ×3 (13:40→20:33)
--- NOTE | 2021-01-04 13:56 | Anesthesia-General Post-Op ---
MAC Patient Condition Mental Status/LOC: Same as Preop Cardiovascular: Satisfactory Nausea/Vomiting: Absent Respiratory: Satisfactory Pain: Controlled Complications: Absent Post Op Complications Complications None Follow Up Care/Instructions Patient Instructions None needed. Anesthesiology Discharge Order Discharge Order Patient is doing well, no complaints, stable vital signs, no apparent adverse anesthesia problems. No complications reported per nursing. ALBANIA NASSAR CRNA Jan 04, 2021 13:56
--- NOTE | 2021-01-04 14:53 | OPERATIVE REPORT ---
DATE OF SERVICE: 01/04/2021 ATTENDING PRIMARY CARE PHYSICIAN: Teresita Alicea MD. PREOPERATIVE DIAGNOSES: Chest pain, gastroesophageal reflux disease. POSTOPERATIVE DIAGNOSES: Reflux esophagitis stage II, small hiatal hernia approximately 1 cm in size, moderate gastritis with bilious contents within the stomach, likely indicating a bile acid reflux. Normal duodenum. No ulcerations. PROCEDURES PERFORMED: EGD with biopsy. SURGEON: Balbir Bonilla MD. ANESTHESIA: Monitored anesthesia care. ESTIMATED BLOOD LOSS: Minimal. FINDINGS: Reflux esophagitis stage II, small hiatal hernia approximately 1 cm in size, moderate gastritis with bilious contents within the stomach, likely indicating a bile acid reflux. Normal duodenum. No ulcerations. DISPOSITION: The patient tolerated the procedure well. INDICATIONS FOR PROCEDURE: The patient is a 60-year-old female, who presented with chest pain at work, which was severe and she was brought to the Emergency Department, where she underwent a workup. Cardiac workup including cardiac enzymes and EKG were normal. She reports that she has had some issues with reflux; however, not severe. She is currently not on any acid reducers. She is also status post gastric sleeve resection. DESCRIPTION OF PROCEDURE: The patient was brought to the endoscopy suite and laid in the left lateral decubitus position. After adequate IV pain and sedative medications and conscious sedation anesthesia, the mouthpiece was applied. The endoscope was then placed in the mouth, visualizing the pharynx and hypopharyngeal region. Vocal cords, epiglottis and vallecula identified and appeared to be normal. The endoscope was then gently intubated. The esophageal opening and esophagus insufflated. The endoscope was then advanced to the first, second and third portion of the esophagus; at the level of the GE junction, a reflux esophagitis stage II identified. There were no ulcers or strictures identified in this region. A biopsy was taken with forceps with visualization of good hemostasis. The endoscope was then advanced in the stomach and endoscope retroflexed, visualizing a small hiatal hernia approximately 1 to 1.5 cm in size. Even being n.p.o., there was bilious material liquid within the stomach, which may indicate a bile acid reflux. There was also a gastritis noted towards the stomach antrum; however, no formal ulcerations, polyps or any neoplasms. A biopsy was taken of the antrum to rule out H. pylori with visualization of good hemostasis. The endoscope was then advanced to the pylorus and the first and second portion of the duodenum, which appeared normal with no distal obstructions or any ulcerations. The endoscope was then slowly withdrawn while taking a second look and suctioning of residual air with no additional findings. The patient tolerated the procedure well. We feel that she does have a likely component of acid hypersecretion; however, she also likely has a component of bile acid reflux. We will recommend the necessary lifestyle and dietary accommodation including small and more frequent meals, avoidance of eating at night as well as head elevation while lying supine. She also needs to avoid caffeinated beverages, spicy, greasy and acidic foods and take in small and more frequent meals. We will start her on Protonix 40 mg daily; however, also Maalox or other aluminum containing antacids for the alkaline reflux on a t.i.d. basis. Job ID: [id number] DocumentID: [id number] Dictated Date: 01/04/2021 10:21:06 Coarse Wire Drawer Date: 01/04/2021 14:52:38 Dictated By: BALBIR BONILLA MD
[2021-01-04] MEDS: ONDANSETRON 4 MG/2 ML (SDV) Z0FRAN IVP PRN (18:35)
[2021-01-04] MEDS: rOPINIRole 1 MG (REQUIP) TABLET PO SCH (20:32)
[2021-01-04] MEDS: BACLOFEN 10 MG (LIORESAL) TAB PO SCH (20:32)
[2021-01-04] MEDS: traZODone 50 MG (DESYREL) TAB PO SCH (20:33)
[2021-01-04] MEDS ORDERED: PANTOPRAZOLE 20 MG TABLET (PROTONIX) PO SCH (21:00)
[2021-01-04] MEDS ORDERED: ONDANSETRON 4 MG (ZOFRAN) ORAL DISSOLVE TAB PO PRN (21:00)
[2021-01-04] MEDS ORDERED: PANTOPRAZOLE 20 MG TABLET (PROTONIX) PO ONE (21:30)
[2021-01-05] VITALS: BP 102/55
[2021-01-05 04:59] VITALS: BP 109/58
[2021-01-05] MEDS ORDERED: PANTOPRAZOLE 20 MG TABLET (PROTONIX) PO SCH (07:00)
[2021-01-05 08:00] VITALS: BP 118/70
[2021-01-05] MEDS ORDERED: PANT20TA18 PO (08:42)
[2021-01-05] MEDS ORDERED: ONDA4TAB11 PO (08:42)
[2021-01-05] MEDS ORDERED: DOXY100T2 PO (08:42)
[2021-01-05] MEDS ORDERED: MAG30ORA2 PO (08:42)
--- NOTE | 2021-01-05 08:43 | Discharge Inst-Simple/Standard ---
Discharge Inst-Standard Reconcile Patient Problems Problems Reviewed?: Yes Discharge Medications New, Converted or Re-Newed RX: Transmitted to Pharmacy Patient Instructions/Follow Up Plan of Care/Instructions/FU: 1 [facility] [address] BONILLA Activity as Tolerated: Yes Discharge Diet: Eat Small Frequent Meals Return to The Hospital For: ANY CONCERN FOR WORSENING ILLNESS, CHEST PAIN, SHORTNESS OF BREATH OR OTHER LIFETHREATENING ILLNESS/INJURY SUZE WILLSON MD Jan 05, 2021 08:43
--- NOTE | 2021-01-05 08:44 | Discharge Summary ---
Diagnosis/Chief Complaint Date of Admission Jan 02, 2021 at 20:18 Date of Discharge Discharge Date: Jan 05, 2021 Discharge Time: 1030 Reason Hospital Visit ANA CRISTINA IS A NEW PATIENT TO MY PRACTICE. SHE PRESENTED TO THE HOSPITAL WITH SHAKING CHILLS, WEAKNESS, FLUSHING OF HER SKIN AND ABDOMINAL DISCOMFORT. SHE REPORTS A RASH TO HER CHEST, UPPER BODY. SHE DENIES anY KNOWN ALLERGENIC EXPOSURES. 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 Discharge Summary Discharge Physical Examination Allergies: Coded Allergies: Penicillins (Verified Allergy, Unknown, 11/09/20) Vitals & I&Os Vital Signs Date Time Temp Pulse Resp B/P (MAP) Pulse Ox O2 Delivery O2 Flow Rate FiO2 01/05/21 08:00 35.4 75 20 118/70 (86) 99 Room Air 01/05/21 00:00 3.00 Discharge Instructions to patient/family Please see electronic discharge instructions given to patient. Discharge Medications Reviewed and agree with Discharge Medication list on patient's Discharge Instruction sheet Clinical Quality Measures AMI/AHF: ASA po Prior to arrival: SUZE Dumont MD Jan 05, 2021 08:44
[2021-01-05] MEDS: ANTACID SUSP 30 ML UDC (MYLANTA) PO SCH (08:57)
[2021-01-05] MEDS: ASPIRIN E.C. 81 MG (ECOTRIN) TAB PO SCH (08:57)
[2021-01-05 10:20] VITALS: BP 118/70
== END 2021-01-05 09:50 | disposition home or self-care (01) ==
LOC: EDUNIT# 16:13 → ER 16:15 → 4TH 20:18
PROVIDERS: ADMIT Family Medicine; ATTEND Family Medicine
DX: K21.00 Gastro-esophageal reflux disease with esophagitis, without bleeding (principal); K44.9 Diaphragmatic hernia without obstruction or gangrene; K29.50 Unspecified chronic gastritis without bleeding; M19.90 Unspecified osteoarthritis, unspecified site; E66.9 Obesity, unspecified; I10 Essential (primary) hypertension; D72.10 Eosinophilia, unspecified; G47.00 Insomnia, unspecified; M62.838 Other muscle spasm; R23.2 Flushing; Z79.899 Other long term (current) drug therapy; Z79.891 Long term (current) use of opiate analgesic; Z90.49 Acquired absence of other specified parts of digestive tract; Z87.891 Personal history of nicotine dependence; Z86.010 Personal history of colon polyps; Z68.42 Body mass index [BMI] 45.0-49.9, adult; Z98.84 Bariatric surgery status
CPT/HCPCS: 43239; 71045; 71275; 80048; 80053 ×2; 80061; 81000; 83735; 83874; 83880; 84484 ×2; 85007 ×2; 85025; 85027 ×2; 85379; 85610; 85730; 86666 ×2; 86668; 86757 ×2; 87040; 87081; 87088; 87636; 88305; 93005; 93041; 94640; 94760; 96374; 96375; 99284; G0378; 36415

== ENCOUNTER → 2021-02-03 | Day surgery (SDC) | payer OTHER ==
[2021-02-03] VITALS (7 sets, daily range): BP systolic 88–117; BP diastolic 62–79
[~2021-02-03] VITALS: Ht 162.5 cm; Wt 128.5 kg
[~2021-02-03] MED LIST changes: +DOXY100T2 PO; +LACTATED RINGERS 1,000 ML IV ONE; +LACTATED RINGERS 1,000 ML IV STA; +LIDOCAINE JELLY 2% 6 ML SYRINGE MM PRN; +MAG30ORA2 PO; +ONDANSETRON 4 MG (ZOFRAN) ORAL DISSOLVE TAB PO PRN; +ONDANSETRON 4 MG/2 ML (SDV) Z0FRAN IVP PRN; +PANT20TA18 PO; +POTA-179 PO; -POTA20TA15 PO; +PROPOFOL INJECTION 50 ML IV ONE; +ROPI3TAB4 PO
--- NOTE | 2021-02-03 12:57 | Conscious Sedation/ASA ---
Conscious Sedation Pre-Proced Time 12:30 ASA Score 2 For ASA 3 and 4: Consider anesthesia and medical clearance. Also, for patients with a history of failed moderate sedation consider anesthesia. Airway Lungs Heart ASA score ASA 1: a normal healthy patient ASA 2: a patient with a mild systemic disease (mid diabetes, controlled hypertension, obesity ASA 3: a patient with a severe systemic disease that limits activity (angina, COPD, prior Myocardial infarction) ASA 4: a patient with an incapacitating disease that is a constant threat to life (CHF, renal failure) ASA 5: a moribund patient not expected to survive 24 hrs. (ruptured aneurysm) ASA 6: a declared brain- patient whose organs are being harvested. For emergent operations, add the letter E after the classification Mallampati Classification Grade 2 Sedation Plan Analgesia, Amnesia, Plan communicated to team members, Discussed options with patient/fam, Discussed risks with patient/fam The patient is an appropriate candidate to undergo the planned procedure, sedation, and anesthesia. The patient immediately re-assessed prior to indication. BALBIR BONILLA MD Feb 03, 2021 12:57
--- NOTE | 2021-02-03 12:57 | Progress Note-Pre Operative ---
Pre-Operative Progress Note H&P Reviewed The H&P was reviewed, patient examined and no changes noted. Date Seen by Provider: Feb 03, 2021 Time Seen by Provider: 12:30 Date H&P Reviewed: Feb 03, 2021 Time H&P Reviewed: 12:30 Pre-Operative Diagnosis: screening BALBIR Funes MD Feb 03, 2021 12:57
--- NOTE | 2021-02-03 12:58 | Discharge Inst-Surgical ---
D/C Lap Instructions-IRENE Follow Up Activity as tolerated High Fiber Diet 25g or more per day Avoid Alcohol, Caffeine, Spicy [place] and Acid foods. Drink 64 fluid oz or more of fluids per day. Symptoms to Report: Fever over 101 degree F, Nausea/Vomiting If any problems/questions: Contact your physician or go to Emergency Room BALBIR BONILLA MD Feb 03, 2021 12:58
--- NOTE | 2021-02-03 14:19 | Progress Note-Post Operative ---
Post-Operative Progess Note Surgeon (s)/Test Examiner (s) Surgeon BALBIR BONILLA MD Test Examiner: none Pre-Operative Diagnosis screening colo Post-Operative Diagnosis mild chronic stage 2 ext and int hemorrhoids, pedunculated polyp desc and transverse colon(5mm). Procedure & Operative Findings Date of Procedure 02/03/21 Procedure Performed/Findings colonoscopy with snare polypectomy x2. Anesthesia Type mac Estimated Blood Loss Estimated blood loss (mL): minimal Specimens/Packing Specimens Removed desc and trans colon polyp BALBIR BONILLA MD Feb 03, 2021 14:19
--- NOTE | 2021-02-03 20:11 | OPERATIVE REPORT ---
DATE OF SERVICE: 02/03/2021 ATTENDING PRIMARY CARE PHYSICIAN: Dr. Teresita Alicea. PREOPERATIVE DIAGNOSIS: Screening colonoscopy. POSTOPERATIVE DIAGNOSES: Mild chronic stage II external and internal hemorrhoids, small pedunculated polyp of the descending and transverse colon, both approximately 5 mm in size. PROCEDURES PERFORMED: Colonoscopy with snare polypectomy x2. SURGEON: Balbir Bonilla MD. ANESTHESIA: Monitored anesthesia care. ESTIMATED BLOOD LOSS: Minimal. FINDINGS: Mild chronic stage II external and internal hemorrhoids, small pedunculated polyp of the descending and transverse colon, both approximately 5 mm in size. DISPOSITION: The patient tolerated the procedure well. INDICATIONS FOR PROCEDURE: The patient is a 60-year-old female referred over to us for screening colonoscopy. She did have a colonoscopy approximately 10 years ago. She does not report any major issues with diarrhea nor constipation as well as no red blood per rectum nor any dark tarry stools. She also does not report any family history of colon cancer. DESCRIPTION OF PROCEDURE: The patient was brought to the endoscopy suite and laid in the left lateral decubitus position. After adequate IV pain and sedative medications and monitored anesthesia care, a digital rectal examination was performed. Chronic stage II external and internal hemorrhoids were identified, which were not actively edematous nor inflamed and no bleeding. Normal sphincter tone was felt and there were no palpable masses. The endoscope was then intubated to the anus and rectum gently insufflated. The endoscope was then advanced through the valves of [place] of the rectum with no polyps or any neoplasms identified. Through the sigmoid colon, no diverticulosis identified. The endoscope was then advanced through the descending colon, where a small pedunculated polyp approximately 5 mm in size was identified. This was transected at the base with snare and electrocautery and was retrieved through the endoscope. The endoscope was then advanced to the remainder of the transverse colon, where another similar pedunculated polyp 5 mm in size was identified and this was also removed by a snare polypectomy and retrieved by the endoscope. The endoscope was then advanced to the remainder of the transverse and ascending colon to the cecum, which were normal. The endoscope was then slowly withdrawn while taking a second look and suctioning of residual air with no additional findings. The patient tolerated the procedure well. We will await the biopsy results; however, if these are benign tubular adenomas, she may wait 10 years for her next colonoscopy. We will recommend a high-fiber diet with a fiber supplement with at least 25 grams daily to promote soft stools on a daily basis. Job ID: [id number] DocumentID: [id number] Dictated Date: 02/03/2021 14:13:33 [employer] Date: 02/03/2021 20:10:22 Dictated By: BALBIR BONILLA MD
== END | disposition home or self-care (01) ==
LOC: ENDO 12:04
PROVIDERS: ATTEND Surgery
DX: Z12.11 Encounter for screening for malignant neoplasm of colon (principal); D12.4 Benign neoplasm of descending colon; D12.3 Benign neoplasm of transverse colon; K64.1 Second degree hemorrhoids; K21.00 Gastro-esophageal reflux disease with esophagitis, without bleeding; G25.81 Restless legs syndrome; Z96.643 Presence of artificial hip joint, bilateral; Z96.653 Presence of artificial knee joint, bilateral; Z98.84 Bariatric surgery status; Z87.891 Personal history of nicotine dependence; Z88.0 Allergy status to penicillin; Z79.899 Other long term (current) drug therapy

== ENCOUNTER → 2021-02-16 | Outpatient (RCR) | payer OTHER ==
[~2021-02-16] MED LIST changes: -LACTATED RINGERS 1,000 ML IV ONE; -LACTATED RINGERS 1,000 ML IV STA; -LIDOCAINE JELLY 2% 6 ML SYRINGE MM PRN; -ONDANSETRON 4 MG (ZOFRAN) ORAL DISSOLVE TAB PO PRN; -ONDANSETRON 4 MG/2 ML (SDV) Z0FRAN IVP PRN; -PROPOFOL INJECTION 50 ML IV ONE
== END | disposition home or self-care (01) ==
PROVIDERS: ATTEND Orthopaedic Surgery
DX: M19.011 Primary osteoarthritis, right shoulder (principal); Z96.611 Presence of right artificial shoulder joint

== ENCOUNTER 2021-02-23 11:29 | Outpatient (RCR) | payer OTHER | END 2021-02-23 12:17 | disposition home or self-care (01) | PROVIDERS: ATTEND Orthopaedic Surgery | DX: M19.011 Primary osteoarthritis, right shoulder (principal); Z96.611 Presence of right artificial shoulder joint ==

== ENCOUNTER → 2021-06-06 | Outpatient (CLI) | payer OTHER ==
[2021-06-06 09:37] LABS: HEMATOCRIT 43 % (35-52); HEMOGLOBIN 14.2 g/dL (11.5-16.0); MEAN CORPUSCULAR HEMOGLOBIN 29 pg (25-34); MEAN CORPUSCULAR HGB CONC 33 g/dL (32-36); MEAN CORPUSCULAR VOLUME 89 fL (80-99); MEAN PLATELET VOLUME 10.7 fL (9.0-12.2); PLATELET COUNT 149 10^3/uL (130-400); WHITE BLOOD COUNT 5.6 10^3/uL (4.3-11.0)
[2021-06-06 09:59] LABS: ALBUMIN 4.2 GM/DL (3.2-4.5); BILIRUBIN,TOTAL 0.8 MG/DL (0.1-1.0); CALCIUM 8.8 MG/DL (8.5-10.1); CREATININE SERUM 0.82 MG/DL (0.60-1.30); POTASSIUM 3.4 MMOL/L (3.6-5.0); TOTAL PROTEIN 7.2 GM/DL (6.4-8.2)
== END ==
LOC: LAB 09:11
PROVIDERS: ATTEND Orthopaedic Surgery
DX: Z01.812 Encounter for preprocedural laboratory examination (principal)
CPT/HCPCS: 36415; 80053; 85027; 87081

== ENCOUNTER → 2022-03-09 | Outpatient (CLI) | payer OTHER ==
--- NOTE | 2022-03-09 18:26 | Diagnostic Imaging Report ---
INDICATION: Routine screening. COMPARISON: Prior mammograms from 12/19/2020 and 07/23/2018. EXAMINATION: 2D and 3D bilateral screening mammography was performed with CAD. The current study was also evaluated with a Computer Aided Detection (CAD) system. FINDINGS: Scattered fibroglandular densities are identified, bilaterally. Intraparenchymal lymph nodes in the upper outer aspect of both breasts appears stable. No new mass or malignant appearing microcalcifications are seen. Axillae are unremarkable. IMPRESSION: No mammographic features suspicious for malignancy are identified. ACR BI-RADS Category 2: Benign findings. Result letter will be mailed to the patient. Note: At least 10% of breast cancer is not imaged by mammography. Dictated by: Dictated on workstation # [id number]
== END ==
LOC: RAD 15:00
PROVIDERS: ATTEND Nurse Practitioner Family
DX: Z12.31 Encounter for screening mammogram for malignant neoplasm of breast (principal); Z00.00 Encounter for general adult medical examination without abnormal findings
CPT/HCPCS: 77063; 77067

== ENCOUNTER → 2022-03-16 | Outpatient (CLI) | payer OTHER ==
[2022-03-16 07:32] LABS: HEMATOCRIT 41 % (35-52); HEMOGLOBIN 13.4 g/dL (11.5-16.0); MEAN CORPUSCULAR HEMOGLOBIN 29 pg (25-34); MEAN CORPUSCULAR HGB CONC 33 g/dL (32-36); MEAN CORPUSCULAR VOLUME 88 fL (80-99); MEAN PLATELET VOLUME 11.4 fL (9.0-12.2); PLATELET COUNT 142 10^3/uL (130-400); WHITE BLOOD COUNT 4.6 10^3/uL (4.3-11.0)
[2022-03-16 07:49] LABS: CREATININE SERUM 0.82 MG/DL (0.60-1.30); POTASSIUM 3.9 MMOL/L (3.6-5.0); TOTAL PROTEIN 6.7 GM/DL (6.4-8.2)
== END ==
LOC: LAB 07:20
PROVIDERS: ATTEND Nurse Practitioner Family
DX: Z00.00 Encounter for general adult medical examination without abnormal findings (principal); Z12.31 Encounter for screening mammogram for malignant neoplasm of breast
CPT/HCPCS: 36415; 80053; 80061; 84443; 85027

== ENCOUNTER → 2022-06-20 | Outpatient (CLI) | payer OTHER ==
[~2022-06-20] MED LIST changes: +DIPH-1122 PO; -DIPH25CA48 PO
[2022-06-20 11:26] LABS: HEMATOCRIT 41 % (35-52); HEMOGLOBIN 13.4 g/dL (11.5-16.0); MEAN CORPUSCULAR HEMOGLOBIN 29 pg (25-34); MEAN CORPUSCULAR HGB CONC 33 g/dL (32-36); MEAN CORPUSCULAR VOLUME 88 fL (80-99); MEAN PLATELET VOLUME 11.2 fL (9.0-12.2); PLATELET COUNT 143 10^3/uL (130-400); WHITE BLOOD COUNT 5.6 10^3/uL (4.3-11.0)
[2022-06-20 11:45] LABS: ALBUMIN 4.4 GM/DL (3.2-4.5); BILIRUBIN,TOTAL 0.8 MG/DL (0.1-1.0); CALCIUM 8.8 MG/DL (8.5-10.1); CREATININE SERUM 1.04 MG/DL (0.60-1.30); POTASSIUM 3.8 MMOL/L (3.6-5.0); TOTAL PROTEIN 7.2 GM/DL (6.4-8.2)
== END ==
LOC: LAB 10:53
PROVIDERS: ATTEND Orthopaedic Surgery
DX: Z01.818 Encounter for other preprocedural examination (principal)
CPT/HCPCS: 36415; 80053; 85027

== ENCOUNTER → 2022-10-01 | Outpatient (CLI) | payer OTHER ==
[2022-10-01 07:48] LABS: MONOCYTES % (AUTO) 7 % (0-12)
[2022-10-01 07:50] LABS: BASOPHILS % (AUTO) 1 % (0-10); EOSINOPHILS # (AUTO) 0.2 10^3/uL (0.0-0.3); EOSINOPHILS % (AUTO) 4 % (0-10); HEMATOCRIT 39 % (35-52); HEMOGLOBIN 12.4 g/dL (11.5-16.0); LYMPHOCYTES # (AUTO) 1.3 10^3/uL (1.0-4.0); LYMPHOCYTES % (AUTO) 33 % (12-44); MEAN CORPUSCULAR HEMOGLOBIN 28 pg (25-34); MEAN CORPUSCULAR HGB CONC 32 g/dL (32-36); MEAN CORPUSCULAR VOLUME 88 fL (80-99); MEAN PLATELET VOLUME 11.5 fL (9.0-12.2); MONOCYTES # (AUTO) 0.3 10^3/uL (0.0-1.0); NEUTROPHILS # (AUTO) 2.1 10^3/uL (1.8-7.8); NEUTROPHILS % (AUTO) 55 % (42-75); PLATELET COUNT 134 10^3/uL (130-400); WHITE BLOOD COUNT 3.8 10^3/uL (4.3-11.0)
[2022-10-01 07:54] LABS: POTASSIUM 3.7 MMOL/L (3.6-5.0)
[2022-10-01 07:57] LABS: TOTAL PROTEIN 6.8 GM/DL (6.4-8.2)
[2022-10-01 07:58] LABS: BILIRUBIN,TOTAL 0.6 MG/DL (0.1-1.0)
[2022-10-01 08:00] LABS: CREATININE SERUM 0.83 MG/DL (0.60-1.30)
== END ==
LOC: LAB 07:14
PROVIDERS: ATTEND Nurse Practitioner Family
DX: R63.5 Abnormal weight gain (principal); I10 Essential (primary) hypertension
CPT/HCPCS: 36415; 80053; 80061; 84443; 85025